=== PATIENT | male | born 1945 | race Caucasian/White ===

== ENCOUNTER 2020-03-10 09:19 | Outpatient (REF) | payer MEDICARE, SELFPAY ==
[2020-03-10 10:55] LABS: Prostate Specific Antigen < 0.05 ng/mL (<0.05-4.0)
== END 2020-03-10 09:20 | disposition home or self-care (01) ==
LOC: HO.LAB 09:19
PROVIDERS: PCP Internal Medicine; Visit Provider Urology
DX: Z12.5 Encounter for screening for malignant neoplasm of prostate (principal)
CPT/HCPCS: 84153

== ENCOUNTER 2020-05-18 13:53 | Outpatient (REF) | payer MEDICARE, SELFPAY ==
[2020-05-18 14:13] LABS: Glucose Urine UA NEG (NEG); Leukocyte Esterase Urine NEG (NEG); Nitrite Urine NEG (NEG); Specific Gravity - Urine >= 1.030 (1.005-1.025); Urine Blood 3+ (NEG); Urine Ketones NEG (NEG); Urine Protein TRACE MG/DL (NEG-TRACE)
[2020-05-18 14:14] LABS: Appearance Urine CLOUDY; Color Urine BROWN
[2020-05-18 14:33] LABS: Amorphous Sediment Urine 2+ /LPF; RBC Urine TNTC /HPF (0); WBC Urine 0 /HPF (0-4)
== END 2020-05-18 13:54 | disposition home or self-care (01) ==
LOC: HO.LAB 13:53
PROVIDERS: PCP Internal Medicine; Visit Provider Urology
DX: R31.29 Other microscopic hematuria (principal); R39.15 Urgency of urination
CPT/HCPCS: 81001; 87086

== ENCOUNTER 2020-05-27 11:28 | Outpatient (REF) | payer MEDICARE, SELFPAY ==
[2020-05-27 14:03] LABS: Urine Cytology See Pathology rpt
== END 2020-05-27 11:29 | disposition home or self-care (01) ==
LOC: HO.LNP 11:28
PROVIDERS: PCP Internal Medicine; Visit Provider Urology
DX: R31.29 Other microscopic hematuria (principal); R39.15 Urgency of urination; N30.40 Irradiation cystitis without hematuria; N28.1 Cyst of kidney, acquired; Z85.46 Personal history of malignant neoplasm of prostate
CPT/HCPCS: 81002; 87086; 88112; Q3014

== ENCOUNTER 2020-05-28 08:00 | Outpatient (REF) | payer MEDICARE, SELFPAY ==
[2020-05-28 08:31] LABS: MANUAL DIFF FLAG NO
[2020-05-28 08:34] LABS: Basophils Percent Auto 0.4 % (0-2); Eosinophils Absolute Auto 0.1 X10*3/uL (0.0-0.4); Eosinophils Percent Auto 2.9 % (0-4); Hematocrit 44.3 % (42-52); Hemoglobin 14.8 g/dl (14.0-18.0); Imm Gran Abs Auto 0.01 X10*3/uL (0.00-0.03); Imm Gran Pct Auto 0.2 % (0.0-0.4); Lymphocytes Absolute Auto 1.4 X10*3/uL (1.2-4.9); Lymphocytes Percent Auto 30.3 % (20-40); Mean Corpuscular HGB Conc 33.4 g/dl (31.0-36.0); Mean Corpuscular Hemoglobin 32.4 pg (27.0-33.0); Mean Corpuscular Volume 96.9 fL (80-98); Mean Platelet Volume 8.3 fL (9.4-12.4); Monocytes Absolute Auto 0.4 X10*3/uL (0.1-1.2); Monocytes Percent Auto 9.6 % (2-11); Neutrophils Absolute Auto 2.6 X10*3/uL (2.0-8.3); Neutrophils Percent Auto 56.6 % (45-73); Platelet Count 184 X10*3/uL (160-400); Red Blood Count 4.57 X10*6/uL (4.60-5.80); Red Cell Distribution Width 12.9 % (11.0-16.0); White Blood Count 4.6 X10*3/uL (4.8-10.8)
[2020-05-28 09:01] LABS: Glucose Urine UA NEG (NEG); Leukocyte Esterase Urine NEG (NEG); Nitrite Urine NEG (NEG); PH 6.5 (5.0-8.0); Urine Blood 3+ (NEG); Urine Ketones NEG (NEG); Urine Protein TRACE MG/DL (NEG-TRACE)
[2020-05-28 09:18] LABS: Alanine Aminotransferase 21 U/L (0-40); Albumin Level 4.2 g/dL (3.5-5.0); Alkaline Phosphatase 54 U/L (39-117); Anion Gap 13 (12-20); Aspartate Amino Transferase 20 U/L (5-37); Bilirubin Total 0.5 mg/dL (0.0-1.0); Blood Urea Nitrogen 20 mg/dL (9-16); Calcium 9.1 mg/dL (8.4-10.2); Carbon Dioxide 29 mmol/L (22-29); Chloride 104 mmol/L (96-108); Cholesterol 199 mg/dL; Estimated Glomerular Filt Rate > 60; Glucose Fasting 103 mg/dL (60-99); HDL Cholesterol 74 mg/dL; LDL Cholesterol Calculated 115 mg/dl; Potassium 4.9 mmol/L (3.3-5.1); Sodium 141 mmol/L (135-145); Total Protein 6.8 g/dL (6.5-8.0); Triglycerides 50 mg/dL
[2020-05-28 09:24] LABS: Estimated Average Glucose 103 mg/dL; Hemoglobin A1c % 5.2 %
[2020-05-28 09:27] LABS: Appearance Urine TURBID
[2020-05-28 09:28] LABS: Color Urine RED
[2020-05-28 09:31] LABS: RBC Urine TNTC /HPF (0); WBC Urine 0 /HPF (0-4)
[2020-05-28 09:41] LABS: TSH reflex Free T4 0.76 uIU/mL (0.32-4.0); Vitamin D 25-OH Total 41.8 ng/mL (>30)
== END 2020-05-28 08:01 | disposition home or self-care (01) ==
LOC: HO.LAB 08:00
PROVIDERS: PCP Internal Medicine; Visit Provider Internal Medicine
DX: I10 Essential (primary) hypertension (principal); E78.00 Pure hypercholesterolemia, unspecified; R73.01 Impaired fasting glucose; R31.9 Hematuria, unspecified; N28.1 Cyst of kidney, acquired; E55.9 Vitamin D deficiency, unspecified; E66.3 Overweight
CPT/HCPCS: 36415; 80053; 80061; 81001; 81003; 82306; 83036; 84443; 85025

== ENCOUNTER → 2020-06-03 13:54 | Outpatient (BNVA) | payer MEDICARE, SELFPAY | PROVIDERS: PCP Internal Medicine; Visit Provider Urology | DX: N30.40 Irradiation cystitis without hematuria (principal); R31.9 Hematuria, unspecified | CPT/HCPCS: 99212 ==

== ENCOUNTER → 2020-06-17 10:56 | Outpatient (BNVA) | payer MEDICARE, SELFPAY | PROVIDERS: Visit Provider Urology | DX: N28.1 Cyst of kidney, acquired (principal); N30.40 Irradiation cystitis without hematuria; Z85.46 Personal history of malignant neoplasm of prostate | CPT/HCPCS: 52000; 81002; 99212 ==

== ENCOUNTER 2020-11-19 09:20 | Outpatient (REF) | payer MEDICARE, SELFPAY ==
[2020-11-19 10:43] LABS: Prostate Specific Antigen < 0.05 ng/mL (<0.05-4.0)
== END 2020-11-19 09:21 | disposition home or self-care (01) ==
LOC: HO.LAB 09:20
PROVIDERS: PCP Internal Medicine; Visit Provider Urology
DX: N40.1 Benign prostatic hyperplasia with lower urinary tract symptoms (principal); N13.8 Other obstructive and reflux uropathy; Z12.5 Encounter for screening for malignant neoplasm of prostate; C61 Malignant neoplasm of prostate
CPT/HCPCS: 36415; 84153

== ENCOUNTER 2020-11-25 08:02 | Outpatient (REF) | payer MEDICARE, SELFPAY ==
[2020-11-25 08:22] LABS: MANUAL DIFF FLAG NO
[2020-11-25 08:25] LABS: Basophils Percent Auto 0.4 % (0-2); Eosinophils Absolute Auto 0.1 X10*3/uL (0.0-0.4); Eosinophils Percent Auto 2.6 % (0-4); Hematocrit 43.4 % (42-52); Hemoglobin 14.5 g/dl (14.0-18.0); Imm Gran Abs Auto 0.01 X10*3/uL (0.00-0.03); Imm Gran Pct Auto 0.2 % (0.0-0.4); Lymphocytes Absolute Auto 1.5 X10*3/uL (1.2-4.9); Lymphocytes Percent Auto 32.6 % (20-40); Mean Corpuscular HGB Conc 33.4 g/dl (31.0-36.0); Mean Corpuscular Hemoglobin 32.4 pg (27.0-33.0); Mean Corpuscular Volume 97.1 fL (80-98); Mean Platelet Volume 8.4 fL (9.4-12.4); Monocytes Absolute Auto 0.6 X10*3/uL (0.1-1.2); Monocytes Percent Auto 13.9 % (2-11); Neutrophils Absolute Auto 2.3 X10*3/uL (2.0-8.3); Neutrophils Percent Auto 50.3 % (45-73); Platelet Count 170 X10*3/uL (160-400); Red Blood Count 4.47 X10*6/uL (4.60-5.80); Red Cell Distribution Width 13.1 % (11.0-16.0); White Blood Count 4.6 X10*3/uL (4.8-10.8)
[2020-11-25 08:34] LABS: Estimated Average Glucose 105 mg/dL; Hemoglobin A1c % 5.3 %
[2020-11-25 09:11] LABS: Alanine Aminotransferase 20 U/L (0-40); Albumin Level 4.3 g/dL (3.5-5.0); Alkaline Phosphatase 61 U/L (39-117); Anion Gap 10 (12-20); Aspartate Amino Transferase 20 U/L (5-37); Bilirubin Total 0.6 mg/dL (0.0-1.0); Blood Urea Nitrogen 17 mg/dL (9-16); Calcium 9.7 mg/dL (8.4-10.2); Carbon Dioxide 30 mmol/L (22-29); Chloride 108 mmol/L (96-108); Cholesterol 198 mg/dL; Estimated Glomerular Filt Rate > 60; Glucose Fasting 107 mg/dL (60-99); HDL Cholesterol 71 mg/dL; LDL Cholesterol Calculated 118 mg/dl; Potassium 5.5 mmol/L (3.3-5.1); Sodium 142 mmol/L (135-145); Triglycerides 46 mg/dL
[2020-11-25 09:35] LABS: TSH reflex Free T4 0.88 uIU/mL (0.32-4.0); Vitamin D 25-OH Total 38.4 ng/mL (>30)
[2020-11-25 09:50] LABS: Glucose Urine UA NEG (NEG); Leukocyte Esterase Urine NEG (NEG); Nitrite Urine NEG (NEG); Specific Gravity - Urine 1.025 (1.005-1.025); UACC Culture Trigger NO; Urine Blood 3+ (NEG); Urine Ketones NEG (NEG); Urine Protein NEG (NEG-TRACE)
[2020-11-25 10:13] LABS: Appearance Urine CLOUDY; Color Urine YELLOW
[2020-11-25 10:57] LABS: Mucus Urine 1+ /LPF; WBC Urine 0 /HPF (0-4)
== END 2020-11-25 08:03 | disposition home or self-care (01) ==
LOC: HO.LAB 08:02
PROVIDERS: PCP Internal Medicine; Visit Provider Internal Medicine
DX: N30.40 Irradiation cystitis without hematuria (principal); C61 Malignant neoplasm of prostate; N28.1 Cyst of kidney, acquired; I10 Essential (primary) hypertension; E78.00 Pure hypercholesterolemia, unspecified; R73.01 Impaired fasting glucose; E66.3 Overweight; E55.9 Vitamin D deficiency, unspecified
CPT/HCPCS: 36415; 80053; 80061; 81001; 81003; 82306; 83036; 84443; 85025; 99212

== ENCOUNTER 2021-05-19 10:13 | Outpatient (REF) | payer MEDICARE, SELFPAY ==
[2021-05-19 12:08] LABS: Prostate Specific Antigen < 0.05 ng/mL (<0.05-4.0)
== END 2021-05-19 10:14 | disposition home or self-care (01) ==
LOC: HO.LAB 10:13
PROVIDERS: PCP Internal Medicine; Visit Provider Urology
DX: Z12.5 Encounter for screening for malignant neoplasm of prostate (principal); C61 Malignant neoplasm of prostate
CPT/HCPCS: 36415; 84153

== ENCOUNTER 2021-05-26 09:04 | Outpatient (REF) | payer MEDICARE, SELFPAY ==
[2021-05-26 10:51] LABS: Appearance Urine HAZY; Color Urine YELLOW; Glucose Urine UA NEG (NEG); Leukocyte Esterase Urine NEG (NEG); Nitrite Urine NEG (NEG); PH 6.5 (5.0-8.0); UACC Culture Trigger NO; Urine Blood 3+ (NEG); Urine Ketones NEG (NEG); Urine Protein NEG (NEG-TRACE)
[2021-05-26 12:03] LABS: RBC Urine TNTC /HPF (0); WBC Urine 0 /HPF (0-4)
== END 2021-05-26 09:05 | disposition home or self-care (01) ==
LOC: HO.LAB 09:04
PROVIDERS: PCP Internal Medicine; Visit Provider Internal Medicine
DX: N40.1 Benign prostatic hyperplasia with lower urinary tract symptoms (principal); N13.8 Other obstructive and reflux uropathy; I10 Essential (primary) hypertension; N28.1 Cyst of kidney, acquired; R31.9 Hematuria, unspecified; Z85.46 Personal history of malignant neoplasm of prostate
CPT/HCPCS: 81001

== ENCOUNTER 2021-06-01 08:01 | Day surgery (SDC) | payer MEDICARE, SELFPAY ==
[2021-04-26 13:47] VITALS: BMI 27.7
--- NOTE | 2021-05-31 11:05 | HO.ANESPROP2 ---
Documented by User: Aster Carter NP 05/31/21 11:06 HPI - Anesthesia Eval Consult details Narrative: 76yo M for Colonoscopy K elevated 11/2020, repeat lytes DOS PMFSH Active Problems Active Problems: All Active Problems (Updated 05/31/21 @ 09:21 by Cade Enriquez MD) Radiation cystitis (Acute) Microscopic hematuria (Acute) Urinary urgency (Acute) Prostate cancer (Acute) Complex renal cyst (Acute) Adult general medical exam (Acute) Screening for colon cancer (Acute) Overweight (BMI 25.0-29.9) (Acute) History of prostate cancer (Acute) Renal cyst (Acute) Hematuria (Acute) Vitamin D deficiency (Acute) Osteoarthritis of left knee (Acute) Impaired fasting glucose (Acute) Pure hypercholesterolemia (Acute) Benign essential hypertension (Acute) Past Medical History Medical History (Updated 05/31/21 @ 09:21 by Cade Enriquez MD) Benign essential hypertension Diverticulosis History of prostate cancer Hypertension Impaired fasting glucose Osteoarthritis of left knee Overweight (BMI 25.0-29.9) Pure hypercholesterolemia Radiation cystitis Renal cyst Vitamin D deficiency Family History Family History Father Cancer Mother Colon cancer Surgical History Surgical History History of ankle surgery History of colonoscopy History of meniscectomy of left knee (~06/05/12) Hx of prostatectomy Hx of umbilical hernia repair Social History Social History Housing: House Alcohol intake: current Alcohol intake frequency: 0-2 drinks per day Alcohol type: beer Patient Tobacco Use Status: Never used Tobacco Second Hand Smoke Exposure: No Are you DNR?: No Advance Directives: No Advance Directives Information Provided: Yes Current occupational status: retired Meds Allergies Allergy/AdvReac Type Severity Reaction Status Date / Time No Known Allergies Allergy Verified 05/31/21 12:10 Home Medications Medication Instructions Recorded Confirmed Last Taken Type cholecalciferol (vitamin D3) 10 10 mcg PO DAILY 06/01/20 05/31/21 Unknown History mcg (400 unit) tablet multivitamin 1 tab PO DAILY 06/01/20 05/31/21 Unknown History Exam Exam Date and Time: May 31, 2021 1105 Height,Weight and Vital Signs: Height 5 ft 9 in Weight 85.275 kg Assessment and Plan Assessment Anesthesia Assessment: Chart Reviewed Documented by User: Jaqueline Otto MD 06/01/21 09:02 [facility] Past Medical History Medical History (Updated 05/31/21 @ 09:21 by Cade Enriquez MD) Benign essential hypertension Diverticulosis History of prostate cancer Hypertension Impaired fasting glucose Osteoarthritis of left knee Overweight (BMI 25.0-29.9) Pure hypercholesterolemia Radiation cystitis Renal cyst Vitamin D deficiency Family History Family History Father Cancer Mother Colon cancer Family history of problems with anesthesia: No Surgical History Surgical History History of ankle surgery History of colonoscopy History of meniscectomy of left knee (~06/05/12) Hx of prostatectomy Hx of umbilical hernia repair History of Problems with Anesthesia: No Social History Social History Housing: House Alcohol intake: current Alcohol intake frequency: 0-2 drinks per day Alcohol type: beer Patient Tobacco Use Status: Never used Tobacco Second Hand Smoke Exposure: No Are you DNR?: No Advance Directives: No Advance Directives Information Provided: Yes Current occupational status: retired Meds Allergies Allergy/AdvReac Type Severity Reaction Status Date / Time No Known Allergies Allergy Verified 05/31/21 12:10 Home Medications Medication Instructions Recorded Confirmed Last Taken Type cholecalciferol (vitamin D3) 10 10 mcg PO DAILY 06/01/20 05/31/21 Unknown History mcg (400 unit) tablet multivitamin 1 tab PO DAILY 06/01/20 05/31/21 Unknown History Exam Height,Weight and Vital Signs: Height 5 ft 9 in Weight 85.275 kg Vital Signs Temp Pulse Resp BP Pulse Ox 02/15/22 08:16 97 F 60 18 150/71 H 96 Pertinent Lab Results Pertinent Lab Results: Lab Results 06/01/21 Range/Units 08:19 Sodium 141 (135-145) mmol/L Potassium 4.2 D (3.3-5.1) mmol/L Chloride 102 (96-108) mmol/L Carbon Dioxide 30 H (22-29) mmol/L Anion Gap 13 (12-20) Airway Mallampati Class: II TM Dist: >3cm Neck ROM: Full Loose/Missing/Broken Teeth: Yes (Some broken ) Heart: RRR Lungs: CTAB Assessment and Plan Assessment Anesthesia Assessment: Anesthesia Plan Discussed Final Anesthetic Review Family History of Problems with Anesthesia: No History of Problems with Anesthesia: No NPO: Yes ASA Class: II Final Preanesthetic Review: No Changes in Pt Med Stat, Meds/Allgs Chart Reviewed, Consent Obtained/Reviewed and Anes Risks/Benef Reviewed Patient Risk: Low Procedure Risk: Low Assessment/Block/Sedation in SS: Assess/Block/Sedation- Anesthetic Plan Anesthetic Plan: MAC: Disposition: Standard PACU
[2021-06-01 08:16] VITALS: BP 150/71; PULSE 60; RESP 18; TEMP 36.1; O2SAT 96
[2021-06-01] MEDS: Lactated Ringers 1,000 ML 100 ML IVCONT (08:31)
[2021-06-01 08:37] LABS: Anion Gap 13 (12-20); Carbon Dioxide 30 mmol/L (22-29); Chloride 102 mmol/L (96-108); Potassium 4.2 mmol/L (3.3-5.1); Sodium 141 mmol/L (135-145)
--- NOTE | 2021-06-01 08:58 | MHC.SHP ---
Pre-Procedural Eval Section A Date of Service: 06/01/21 Section B Chief Complaint: screening Details of Present Illness: screening Relevant Family History (Specify if Yes): Yes Relevant Social History: None Present Medications: see Short Stay Collaborative assessment Medical History: No relevant PMH History of Previous Operations: No relevant previous surgery Allergies: Allergies Allergy/AdvReac Type Severity Reaction Status Date / Time No Known Allergies Allergy Verified 05/31/21 12:10 Review of Systems Sugical H&P ROS: Negative: Constitution, Cardiovascular, Respiratory, Neurological, Psychiatric, Hem-Onc, Allergic/Immunologic, Gastrointestinal, Genitourinary, Musculoskeletal, Integumentary, Endocrine and Eyes/Ears/Nose/Throat Exam Surgical H&P Exam: Normal: HEENT, Normal: Heart, Normal: Lungs, Normal: Extremities, Normal: Abdomen, Normal: Skin and Normal: Neurological Plan Diagnosis/Plan: Unchanged I have reviewed the history and physical and performed a pertinent physical examination on my patient. No changes have occurred unless specified.
[2021-06-01 09:37] VITALS: BP 102/48; PULSE 73; RESP 16; TEMP 36.2; O2SAT 95
--- NOTE | 2021-06-01 09:37 | P.BOP_ITS ---
Brief Operative Note Date of Service: 06/01/21 Pre-op diagnosis: screening Post-op diagnosis: same (colon polyps) Surgeon: Sumeet Swift Anesthesia: MAC Was an Patternmaker Metal Bench used for this Procedure?: No Estimated blood loss (mL): 5 Pathology: other (polyps cecum and 70 cm) Condition: stable Disposition: PACU
[2021-06-01 09:54] VITALS: BP 107/62; PULSE 71; RESP 18; TEMP 36.2; O2SAT 97
--- NOTE | 2021-06-01 11:12 | OP_ITS ---
SURGEON: Sumeet Swift MD INDICATIONS: Colon cancer screening. PREOPERATIVE DIAGNOSIS: POSTOPERATIVE DIAGNOSIS: PROCEDURE PERFORMED: Colonoscopy to the terminal ileum with biopsy. ESTIMATED BLOOD LOSS: COMPLICATIONS: ANESTHESIA: ASSISTANTS: SPECIMENS: MEDICATIONS: Monitored anesthesia care. DESCRIPTION OF PROCEDURE: History and physical performed. The risks and benefits of the procedure were explained to the patient. Informed consent was obtained. The patient was placed in the left lateral decubitus position. A digital rectal exam was performed and was found to be normal. The Olympus pediatric video colonoscope was introduced into the rectum and advanced to the cecum without difficulty. The cecum was identified by transillumination, palpation, and identification of ileocecal valve. Examination was performed and the scope was removed. He tolerated the procedure well and was taken to recovery in stable condition. FINDINGS: The terminal ileum was examined and appeared normal. The visualized colonic mucosa was normal. There was some liquid stool coating the mucosa with some formed stool limiting the examination in the sigmoid and right colon. This was washed and suctioned as best possible. Three polyps were identified. All were less than 5 mm and were removed with biopsy forceps. Two were located at 70 cm, 1 was located in the cecum. There was moderate sigmoid diverticulosis with scattered diverticula throughout the remainder of the colon. There were changes of radiation proctitis with telangiectasias involving the rectum. Retroflexed examination showed internal hemorrhoids that were moderate in size. IMPRESSION: Colon polyps. RECOMMENDATION: Follow up the biopsy results. MD BRANDEE Villatoro/YESI / [id number]
== END 2021-06-01 10:15 | disposition home or self-care (01) ==
PROVIDERS: Nurse Practitioner; PCP Internal Medicine; Visit Provider Internal Medicine Gastroenterology
PROC: 0DJD8ZZ Inspection of Lower Intestinal Tract, Via Natural or Artificial Opening Endoscopic (ICD-10-PCS; CPT 45378; principal; 2021-06-01 09:10)
DX: Z12.11 Encounter for screening for malignant neoplasm of colon (principal); Z86.010 Personal history of colon polyps; D12.0 Benign neoplasm of cecum; K63.5 Polyp of colon; K57.30 Diverticulosis of large intestine without perforation or abscess without bleeding; K64.8 Other hemorrhoids; Z85.46 Personal history of malignant neoplasm of prostate; K62.7 Radiation proctitis; Y84.2 Radiological procedure and radiotherapy as the cause of abnormal reaction of the patient, or of later complication, without mention of misadventure at the time of the procedure; I10 Essential (primary) hypertension; Z79.899 Other long term (current) drug therapy
CPT/HCPCS: 45380; 36415; 80051; 88305

== ENCOUNTER → 2021-06-09 15:39 | Outpatient (BNVA) | payer MEDICARE, SELFPAY | PROVIDERS: PCP Internal Medicine; Visit Provider Urology | DX: N30.40 Irradiation cystitis without hematuria (principal); C61 Malignant neoplasm of prostate; N28.1 Cyst of kidney, acquired; R97.20 Elevated prostate specific antigen [PSA]; I10 Essential (primary) hypertension; E55.9 Vitamin D deficiency, unspecified; Z90.79 Acquired absence of other genital organ(s) | CPT/HCPCS: 99212 ==

== ENCOUNTER 2021-08-03 07:56 | Outpatient (RCR) | payer MEDICARE, SELFPAY ==
--- NOTE | ~2021-08-03 | XR_ITS ---
EXAMINATION: XR CHEST CLINICAL INFORMATION: Prehyperbaric oxygen treatment COMPARISON: None TECHNIQUE: 2 views of the chest were obtained. FINDINGS: The cardiac and mediastinal contours are normal. The lungs are clear. There is no pleural effusion or pneumothorax. There are degenerative changes of the spine. XR/XR chest 2V IMPRESSION: No evidence for acute disease in the chest.
[2021-08-03 09:27] LABS: MANUAL DIFF FLAG NO
[2021-08-03 10:25] LABS: Basophils Percent Auto 0.4 % (0-2); Eosinophils Absolute Auto 0.1 X10*3/uL (0.0-0.4); Eosinophils Percent Auto 2.7 % (0-4); Hemoglobin 13.2 g/dl (14.0-18.0); Imm Gran Abs Auto 0.01 X10*3/uL (0.00-0.03); Imm Gran Pct Auto 0.2 % (0.0-0.4); Lymphocytes Absolute Auto 1.2 X10*3/uL (1.2-4.9); Mean Corpuscular HGB Conc 32.2 g/dl (31.0-36.0); Mean Corpuscular Hemoglobin 30.8 pg (27.0-33.0); Mean Corpuscular Volume 95.6 fL (80.0-98.0); Mean Platelet Volume 8.7 fL (9.4-12.4); Monocytes Absolute Auto 0.6 X10*3/uL (0.1-1.2); Monocytes Percent Auto 10.6 % (2-11); Neutrophils Absolute Auto 3.3 x10*3/uL (2.0-8.3); Neutrophils Percent Auto 63.1 % (45-73); Platelet Count 229 X10*3/uL (160-400); Red Blood Count 4.29 X10*6/uL (4.60-5.80); Red Cell Distribution Width 12.4 % (11.0-16.0); White Blood Count 5.2 X10*3/uL (4.8-10.8)
[2021-08-03 10:31] LABS: Estimated Average Glucose 105 mg/dL; Hemoglobin A1c % 5.3 %
[2021-08-03 11:03] LABS: Anion Gap 12 (12-20); Blood Urea Nitrogen 25 mg/dL (9-16); C Reactive Protein 0.22 mg/dL (< or = 0.50); Calcium 9.7 mg/dL (8.4-10.2); Carbon Dioxide 28 mmol/L (22-29); Chloride 109 mmol/L (96-108); Estimated Glomerular Filt Rate > 60; Glucose Random 90 mg/dL (60-115); Potassium 5.8 mmol/L (3.3-5.1); Sodium 143 mmol/L (135-145)
[2021-08-03 11:17] LABS: Erythrocyte Sedimentation Rate 12 MM/HR (0-15)
== END 2021-10-28 13:00 | disposition home or self-care (01) ==
LOC: HO.WCC 07:56
PROVIDERS: PCP Internal Medicine; Visit Provider Physician Assistant
DX: N30.41 Irradiation cystitis with hematuria (principal); R30.0 Dysuria; I10 Essential (primary) hypertension; R32 Unspecified urinary incontinence; Z85.46 Personal history of malignant neoplasm of prostate; Z79.899 Other long term (current) drug therapy
CPT/HCPCS: 36415; 71046; 80048; 83036; 84134; 85025; 85652; 86140; 99183; 99212; 99213

== ENCOUNTER → 2021-08-06 09:54 | Outpatient (BNVA) | payer MEDICARE, SELFPAY | PROVIDERS: PCP Internal Medicine; Visit Provider Urology | DX: N30.40 Irradiation cystitis without hematuria (principal); C61 Malignant neoplasm of prostate | CPT/HCPCS: 52000; 99212 ==

== ENCOUNTER 2021-09-22 20:48 | Emergency (ER) | payer MEDICARE, SELFPAY ==
[2021-09-22 20:57] VITALS: BP 189/83; PULSE 120; RESP 18; TEMP 37; O2SAT 98; BMI 27.3
--- NOTE | 2021-09-22 23:50 | PC.NURSE ---
Assumed care of pt [address] placed with maintenance technician at bedside Pt tolerated well Output: approx 600 cc dark red urine. No clotts visible
--- NOTE | 2021-09-22 23:53 | ED_ITS ---
HPI - Male Genitourinary General Chief complaint: Urogenital-Male Stated complaint: unable to void Time Seen by Provider: 09/22/21 23:06 Source: patient and family Mode of arrival: ambulatory History of Present Illness HPI Narrative: 76-year-old male presents with history of radiation cystitis and is currently under the care of Dr. Trevino and has been receiving tranexamic acid for hematuria/clot and has been undergoing treatment with hyperbaric chamber through the wound clinic. Patient states that he experience the inability to pass urine since approximately 1930, by the he has had significant urinary frequency he states he is been unable to pass any urine. And is now experiencing significant pain the lower abdomen. Related Data Home Medications Medication Instructions Recorded Confirmed cholecalciferol (vitamin D3) 10 10 mcg PO DAILY 06/01/20 05/31/21 mcg (400 unit) tablet multivitamin 1 tab PO DAILY 06/01/20 05/31/21 Previous Rx's Medication Instructions Recorded vitamin E (dl, acetate) 450 mg 450 mg PO DAILY #90 caps 06/17/20 (1,000 unit) capsule pentoxifylline 400 mg 400 mg PO BID 90 days #180 tabs 12/11/20 tablet,extended release amlodipine 5 mg-benazepril 40 mg 1 cap PO DAILY 90 days #90 caps 05/31/21 capsule tranexamic acid 650 mg tablet 650 mg PO ONCE 28 days #28 tabs 08/06/21 amoxicillin 875 mg-potassium 1 tab PO Q12H 7 days #14 tabs 09/23/21 clavulanate 125 mg tablet Allergies Allergy/AdvReac Type Severity Reaction Status Date / Time No Known Allergies Allergy Verified 08/06/21 10:04 Review of Systems Review of Systems: Pertinent positives and negatives as stated in HPI 10 point review of systems is otherwise negative. [facility] Past Medical History Source: nursing notes reviewed Medical History Benign essential hypertension Diverticulosis History of prostate cancer Hypertension Impaired fasting glucose Osteoarthritis of left knee Overweight (BMI 25.0-29.9) Pure hypercholesterolemia Radiation cystitis Renal cyst Vitamin D deficiency Surgical History History of ankle surgery History of colonoscopy History of meniscectomy of left knee (~06/05/12) Hx of prostatectomy Hx of umbilical hernia repair Family History Family History Father Cancer Mother Colon cancer Social History Social History Housing: House Alcohol intake: current Alcohol intake frequency: 0-2 drinks per day Alcohol type: beer Patient Tobacco Use Status: Never used Tobacco Second Hand Smoke Exposure: No Advance Directives: No Current occupational status: retired Physical Exam Vital Signs: Vital Signs: Last Vital Signs Temp 98.6 F 09/22/21 20:57 Pulse 120 H 09/22/21 20:57 Resp 18 09/22/21 20:57 BP 189/83 H 09/22/21 20:57 Pulse Ox 98 09/22/21 20:57 O2 Del Method 09/22/21 20:57 BMI result Body Mass Index 27.3 VITAL SIGNS: Reviewed. GENERAL: Well developed, well nourished, in moderate distress. HEAD: Normocephalic/atraumatic EYES: PERRLA, EOMI EARS: Ext canals without abnormality OROPHARYNX: no oral lesions noted, posterior pharynx clear LUNGS: Normal breath sounds. No adventitious sounds or accessory muscle use. SpO2<98> CARDIOVASCULAR: Regular rate and rhythm without noted murmurs ABDOMEN: Soft, tenderness in the suprapubic area and noted firmness there, non- distended with bowel sounds. SKIN: Inspection of the skin reveals no rashes NEUROLOGIC: Alert and oriented x 4. Strength and sensation to light touch were grossly intact x 4. Course Course Course Narrative: 76-year-old male with history and clinical presentation consistent with likely urinary retention secondary to blockage of urethra with clot. Bladder scan demonstrates more than 600 cc of urine in the bladder, will place a Morales catheter with Urojet and administer CBI as indicated. Morales catheter was placed with good resolution of pain and urine collar typical for patient's current course which is gross hematuria without clots noted. On review of urinalysis there is evidence of not only gross hematuria but also UTI. He received initial antibiotics here in the emergency room and then was discharged with remaining course. He was also given all results and instructed to follow-up with Dr. Trevino. MDM - Male Genitourinary Lab Data Labs: Lab Results 09/23/21 Range/Units 00:10 Urine Color BROWN A Urine Appearance TURBID Urine pH 7.0 (5.0-8.0) Ur Specific [place] 1.015 (1.005-1.025) Urine Protein 3+ H (NEG-TRACE) MG/DL Urine Glucose (UA) 100 H (NEG) MG/DL Urine Ketones 15 (NEG) MG/DL Urine Blood 3+ H (NEG) Urine Nitrite POS H (NEG) Ur Leukocyte Esterase 2+ H (NEG) Urine RBC TNTC H (0) /HPF Urine WBC 10-14 H (0-4) /HPF Ur Squamous Epith Cells TRACE /LPF Amorphous Sediment 1+ /LPF Urine Bacteria 2+ /LPF Discharge Plan Discharge Clinical Impression: Acute urinary retention, Acute UTI, Difficult Morales catheter placement, Hematuria Patient Disposition: Home, Self-Care Instructions: Urinary Retention in Men (ED), Urinary Tract Infection in Men (ED), Morales Catheter Placement and Care (ED), Hematuria (ED) Additional Instructions: 1. Resume all home medications as prescribed. 2. Continue drinking plenty of water. Complete the entire course of antibiotics as prescribed. 3. Follow-up with Dr. Trevion this morning for re-evaluation. Return to the ER for worsening symptoms. Prescriptions: New amoxicillin-pot clavulanate 875-125 mg tablet 1 tab PO Q12H 7 Days Qty: 14 0RF No Action pentoxifylline 400 mg tablet extended release 400 mg PO BID 90 Days Qty: 180 1RF Rx Instructions: administer with meals tranexamic acid 650 mg tablet 650 mg PO ONCE 28 Days Qty: 28 1RF cholecalciferol (vitamin D3) 10 mcg (400 unit) tablet 10 mcg PO DAILY multivitamin Tablet 1 tab PO DAILY amlodipine-benazepril 5-40 mg capsule 1 cap PO DAILY 90 Days Qty: 90 3RF vitamin E (dl, acetate) 450 mg (1,000 unit) capsule 450 mg PO DAILY Qty: 90 1RF Referrals: Cade Enriquez MD [Primary Care Provider] - Ruperto Trevino MD [Physician] - (Patient presented with urinary tension, catheter was placed and connected to a leg bag, noted to have a UTI and was started on a course of Augmentin.)
[2021-09-23 00:27] LABS: Appearance Urine TURBID; Color Urine BROWN; Glucose Urine UA 100 MG/DL (NEG); Leukocyte Esterase Urine 2+ (NEG); Nitrite Urine POS (NEG); Specific Gravity - Urine 1.015 (1.005-1.025); UACC Culture Trigger YES; Urine Blood 3+ (NEG); Urine Ketones 15 MG/DL (NEG); Urine Protein 3+ MG/DL (NEG-TRACE)
[2021-09-23 00:40] LABS: Amorphous Sediment Urine 1+ /LPF; Bacteria Urine 2+ /LPF; RBC Urine TNTC /HPF (0); Squamous Epithelial Cell Urine TRACE /LPF
[2021-09-23 00:58] VITALS: BP 133/64; PULSE 86; O2SAT 98
[2021-09-23] MEDS: Amoxicillin/Potassium Clav 875 MG TABLET PO (01:14)
[2021-09-23] MEDS: Lidocaine HCl 2 % Urojet 10 ML JEL.PF.APP TOPICAL (01:15)
--- NOTE | 2021-09-23 01:20 | PC.NURSE ---
Pt's medina bag replaced with leg bag Pt medicated per JUN Will continue to monitor
== END 2021-09-23 01:28 | disposition home or self-care (01) ==
PROVIDERS: Emergency Provider Student in an Organized Health Care Education/Training Program; PCP Internal Medicine
DX: R33.9 Retention of urine, unspecified (principal); N39.0 Urinary tract infection, site not specified; R31.0 Gross hematuria; R10.30 Lower abdominal pain, unspecified; I10 Essential (primary) hypertension; E78.00 Pure hypercholesterolemia, unspecified
CPT/HCPCS: 51702; 51798; 81001; 87086; 99283; 99284

== ENCOUNTER → 2021-09-23 10:25 | Outpatient (BNVA) | payer MEDICARE, SELFPAY | PROVIDERS: PCP Internal Medicine; Visit Provider Urology | DX: R31.9 Hematuria, unspecified (principal) | CPT/HCPCS: 51700 ==

== ENCOUNTER → 2021-10-07 09:27 | Outpatient (BNVA) | payer MEDICARE, SELFPAY | PROVIDERS: PCP Internal Medicine; Visit Provider Urology | DX: R31.9 Hematuria, unspecified (principal) | CPT/HCPCS: 51700; 51798 ==

== ENCOUNTER → 2021-11-12 10:57 | Outpatient (BNVA) | payer MEDICARE, SELFPAY | PROVIDERS: PCP Internal Medicine; Visit Provider Urology | DX: N30.91 Cystitis, unspecified with hematuria (principal); N30.40 Irradiation cystitis without hematuria; C61 Malignant neoplasm of prostate | CPT/HCPCS: 52000; 99212 ==

== ENCOUNTER 2021-11-24 10:58 | Outpatient (REF) | payer MEDICARE, SELFPAY | END 2021-11-24 10:59 | disposition home or self-care (01) | LOC: HO.LNP 10:58 | PROVIDERS: Visit Provider Urology | DX: Z13.89 Encounter for screening for other disorder (principal) ==

== ENCOUNTER 2021-12-08 13:47 | Inpatient (IN) | payer MEDICARE, SELFPAY ==
--- NOTE | ~2021-12-08 | CT_ITS ---
EXAMINATION: CT ANGIOGRAM OF THE CHEST WITH AND WITHOUT CONTRAST (CT PULMONARY ANGIOGRAM FOR PE) CLINICAL INFORMATION: Venous thrombosis; question pulmonary embolus. COMPARISON: Venous ultrasound dated 12/08/2021. TECHNIQUE: Prior to contrast administration, noncontrast localization images were obtained. Subsequently, multidetector volumetric imaging was performed from the thoracic inlet to below the diaphragms following the administration of 75 mL Omnipaque 350 intravenous contrast. No contrast reaction reported Sagittal, coronal, and MIP oblique sagittal reformatted images were obtained on the CT workstation, uploaded to PACS, and reviewed. This CT examination was performed using dose optimization techniques as appropriate, variously including the following: *Automated exposure control *Adjustment of mA and/or kV according to patient size (this includes techniques or standardized protocols for targeted exams where dose is matched to indication/reason for exam; i.e. extremities or head) *Use of iterative reconstruction technique Total exam dose-length product 286 mGy-cm FINDINGS: QUALITY OF STUDY/CONTRAST BOLUS: Satisfactory. PULMONARY ARTERIES: No central or segmental pulmonary emboli. THORACIC AORTA: No aneurysm or dissection. There is mild atherosclerotic calcifications. LUNG: At the lateral left base (7:308), a 6 mm noncalcified nodule is seen. There are a few benign, calcified granulomas. No mass, infiltrate or groundglass opacity is seen. There is no generalized increase in peripheral interlobular septal markings. No small airway thickening is seen. The central airways appear patent. PLEURA: No pleural effusion or pneumothorax. MEDIASTINUM: The thyroid is unremarkable. There are atherosclerotic calcifications of the great vessel origins and coronary arteries. No mediastinal or hilar lymphadenopathy is seen. CHEST WALL/AXILLA: No axillary or internal mammary lymphadenopathy. OSSEOUS STRUCTURES: There is multi-level marked thoracic spondylosis, with an appearance suggesting possible DISH (diffuse idiopathic skeletal hyperostosis). No acute or aggressive osseous abnormality is seen. UPPER ABDOMEN: There are incompletely characterized extensive bilateral renal cysts. The included adrenal glands are unremarkable. No reflux of contrast into the hepatic veins to suggest elevated right heart pressures. CT/CT angio chest PE protocol IMPRESSION: 1. No pulmonary embolus or thoracic aortic aneurysm or dissection is seen. 2. A 6 mm noncalcified lateral left base nodule is seen. There are further rare small benign, calcified granulomas. According to the UPDATED 2017 Fleischner Society recommendations, the advised follow-up imaging for multiple solid nodules, the largest measuring 6 mm or greater, is: LOW RISK PATIENT: CT at 3-6 months, then consider CT at 18-24 months. HIGH RISK PATIENT: CT at 3-6 months, then at 18-24 months. 3. No thoracic lymphadenopathy or pleural effusion is seen. 4. Skeletal findings suggest possible DISH. No aggressive osseous lesion is seen. VTE: negative
--- NOTE | ~2021-12-08 | US_ITS ---
EXAMINATION: US VENOUS ULTRASOUND WITH DOPPLER LOWER EXTREMITY, LEFT CLINICAL INFORMATION: Left lower extremity pain and swelling. COMPARISON: None TECHNIQUE: Ultrasound of the deep veins is performed from the hip to the calf with compression sonography and color and pulse Doppler assessment. Spectral analysis with color-flow imaging is performed. FINDINGS: Examination demonstrates relatively echogenic intraluminal material with and lack of compression extending at least from the common femoral vein to the distal aspect of the femoral vein. Minimal peripheral flow is seen within the distal aspect of the femoral vein. No flow is demonstrated within the remainder of the femoral vein or common femoral vein. Flow is seen within the greater saphenous vein, popliteal vein, and visualized infrapopliteal veins. The iliac veins could not be evaluated adequately. US/US venous duplex LE IMPRESSION: Findings, as above, consistent with left lower extremity deep venous thrombosis, age indeterminate. PARAMJIT Zabala was directly informed of the findings by telephone at approximately 4:20 PM on December 08, 2021.
[2021-12-08 13:55] VITALS: BP 114/74; PULSE 106; RESP 17; TEMP 36.6; O2SAT 98; BMI 26.7
--- NOTE | 2021-12-08 18:36 | ED_ITS ---
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 Patient denies any chest pain, shortness of breath, cough, fevers, chills. Patient denies any known history of DVT or PE. He is not taking any blood thinning medication. Patient did have history of hemorrhagic cystitis earlier this year. He tells me that his urine is currently yellow and he is not having any current hematuria. Related Data Home Medications Medication Instructions Recorded Confirmed cholecalciferol (vitamin D3) 10 10 mcg PO DAILY 06/01/20 12/08/21 mcg (400 unit) tablet multivitamin 1 tab PO DAILY 06/01/20 12/08/21 ascorbic acid (vitamin C) 500 mg 500 mg PO DAILY 12/08/21 12/08/21 tablet (Vitamin C) Previous Rx's Medication Instructions Recorded vitamin E (dl, acetate) 450 mg 450 mg PO DAILY #90 caps 06/17/20 (1,000 unit) capsule amlodipine 5 mg-benazepril 40 mg 1 cap PO DAILY 90 days #90 caps 05/31/21 capsule tranexamic acid 650 mg tablet 650 mg PO DAILY 28 days #28 tabs 10/07/21 Allergies Allergy/AdvReac Type Severity Reaction Status Date / Time No Known Allergies Allergy Verified 11/11/21 15:30 Review of Systems Review of Systems: Yes all other systems are reviewed and are negative Constitutional: Constitutional: Reports no additional constitutional complaints, Denies body ache(s), Denies chills, Denies fever(s), Denies headache(s) and Denies weakness Eyes: Eyes: Reports no additional eye complaints and Denies change in vision ENT: Reports system reviewed and no additional complaints, except as documented, Denies dizziness, Denies headache(s), Denies nasal congestion, Denies nasal discharge and Denies neck pain Cardiovascular: Cardiovascular: Reports no additional cardiovascular complaints, Denies chest pain, Denies leg edema and Denies dyspnea Respiratory: Respiratory: Reports no additional respiratory complaints, Denies cough and Denies dyspnea Gastrointestinal: Gastrointestinal: Reports no additional gastrointestinal complaints, Denies abdominal pain, Denies diarrhea, Denies nausea and Denies vomiting Genitourinary: Genitourinary: Denies urinary incontinence Musculoskeletal: Musculoskeletal: Reports no additional musculoskeletal compla ints, Denies back pain, Denies arthralgias, Denies joint swelling, Denies neck pain, Denies numbness and Denies tingling Integumentary/Breasts: Skin/Breast: Reports system reviewed and no additional complaints, except as docu, Reports swelling, Reports erythema and Denies rash Neurologic: Reports system reviewed and no additional complaints, except as documented, Denies Abnormal speech present, Denies dizziness, Denies headache(s), Denies numbness, Denies tingling and Denies weakness PMFSH Past Medical History Attestation statement: The following information was validated with the patient. Source: old records reviewed and nursing notes reviewed Medical History Benign essential hypertension Diverticulosis History of prostate cancer Hypertension Impaired fasting glucose Osteoarthritis of left knee Overweight (BMI 25.0-29.9) Pure hypercholesterolemia Radiation cystitis Renal cyst Vitamin D deficiency Surgical History History of ankle surgery History of colonoscopy History of meniscectomy of left knee (~06/05/12) Hx of prostatectomy Hx of umbilical hernia repair Family History Family History Father Cancer Mother Colon cancer Social History Social History Housing: House Alcohol intake: current Alcohol intake frequency: 0-2 drinks per day Alcohol ty pe: beer Patient Tobacco Use Status: Never used Tobacco Second Hand Smoke Exposure: No Advance Directives: No Advance Directives Information Provided: No Current occupational status: retired Physical Exam Vital Signs: Vital Signs: Last Vital Signs Temp 98 F 12/08/21 13:55 Pulse 106 H 12/08/21 13:55 Resp 17 12/08/21 13:55 BP 114/74 12/08/21 13:55 Pulse Ox 98 12/08/21 13:55 O2 Del Method 12/08/21 13:55 BMI result Body Mass Index 26.7 Const: General: cooperative, healthy appearing, comfortable and no acute distress Orientation/consciousness: patient oriented x3 Limitations: no limitations HEENT: Head: Yes normal to inspection Ears: hearing grossly normal bilaterally General nose exam: Normal external nose present Face and sinus: Yes normal facial exam Mouth: Normal oral and palatal mucosa present Throat: Yes posterior oropharynx normal Eyes: General: appearance normal, both eyes and all related structures Pupils: Equal, round and reactive pupils present Neck: Neck: Yes normal visual inspection Chest: Chest palpation & inspection: normal inspection of the chest Resp: Effort & Inspection: normal respiratory effort Auscultation: clear to auscultation bilaterally Cardio: Rate: regular rate Rhythm: regular rhythm Peripheral pulses: Per ipheral pulses 2+ throughout GI: Inspection: Yes normal to inspection Palpation (GI): Soft to palpation and nontender Auscultation: normal bowel sounds Back/Spine/Pelvis: Thoracic/Lumbar Spine: thoracic and lumbar spine normal to inspection Skin: General skin exam: no rashes or lesions noted Neuro: General: patient oriented x3, no focal motor deficits and normal sensation to monofilament Cranial nerves: Yes Equal, round and reactive pupils present Cognition (Neuro): normal cognition Speech: No Abnormal speech present Gait exam (Neuro): Normal gait present Motor exam (neuro): 5/5 motor strength present throughout Extrem: Other: 1 + edema to LLE extending to thigh with swelling. compartments soft and compressible. 2+ DP and PT pulses General: Yes normal to inspection Course Course Course Narrative: Patient has a quite extensive DVT of the left lower extremity which involves the common femoral vein. He will need labs. Due to the extensive DVT patient will also need a CTA to rule out PE. He denies any chest pain, shortness of breath, hemoptysis, fevers or chills. Patient has a significant history of hemorrhagic cystitis and I am hesitant to start him on a Doacs with this history. I discussed the case with doctors 80. Recommendations are for the patient to have a CTA of the chest to rule out PE, discussed his case with vascular to determine if an IVC filter is warranted and admit to medicine overnight for monitoring. Reevaluation(s) Reevaluation #1: 1999-I did speak Dr. Napier from vascular surgery. He will place an IVC filter in the patient tomorrow morning. He recommended giving the patient dose of Lovenox tonight. Hold dose and morning as patient is on the OR schedule for 8 a.m.. I spoke to Dr. Ramirez who accepted admission of patient Reevaluation #2: 2049-CTA is negative for pulmonary embolism. Patient has mild MARYSE. He received 1 L of normal saline here in the emergency room MDM - Extremity Injury (Lower) MDM Narrative Medical decision making narrative: This is a 76-year-old male with history of hypertension, prostate cancer status post resection, several episodes of hemorrhagic cystitis most recently in July of 2021 which required him to be on TXA orally for period of time. Patient tells me that he has had no recent hematuria. He is followed by Dr. Trevino from Urology. He presents today after several days of travel he noticed some swelling and redness to his left thigh in his lower left leg. Patient had a ultrasound from triage that was ordered to eval for DVT Medical Records Attestation: I reviewed the patient's medical records. Lab Data Attestation: I reviewed the patient's lab results. Result diagrams: 12/08/21 19:08 12/08/21 19:08 Labs: Lab Results 12/08/21 12/08/21 12/08/21 Range/Units 19:08 19:08 19:08 WBC 9.1 (4.8-10.8) X10*3/uL RBC 3.71 L (4.60-5.80) X10*6/uL Hgb 10.8 L (14.0-18.0) g/dl Hct 33.8 L (42.0-52.0) % MCV 91.1 (80.0-98.0) fL MCH 29.1 (27.0-33.0) pg MCHC 32.0 (31.0-36.0) g/dl RDW 13.8 (11.0-16.0) % Plt Count 279 (160-400) X10*3/uL MPV 7.8 L (9.4-12.4) fL Immature Gran % (Auto) 0.6 H (0.0-0.4) % Neut % (Auto) 78.1 H (45-73) % Lymph % (Auto) 11.1 L (20-40) % [place] % (Auto) 7.9 (2-11) % Eos % (Auto) 2.0 (0-4) % Baso % (Auto) 0.3 (0-2) % Lymph # (Auto) 1.0 L (1.2-4.9) X10*3/uL [place] # (Auto) 0.7 (0.1-1.2) X10*3/uL Eos # (Auto) 0.2 (0.0-0.4) X10*3/uL Baso # (Auto) 0.0 (0.0-0.2) X10*3/uL Abs Immat Gran (auto) 0.05 H (0.00-0.03) X10*3/uL Absolute Neuts (auto) 7.1 (2.0-8.3) x10*3/uL Absolute Nucleated RBC 0.000 (0.0-0.012) X10*3/uL Nucleated RBC % (auto) 0.0 (0.0-0.2) /100WBC PT 13.8 H (10.0-13.1) SEC INR 1.2 H (0.9-1.1) APTT 30.9 (26.0-36.4) SEC Sodium 140 (135-145) mmol/L Potassium 5.4 H (3.3-5.1) mmol/L Chloride 105 (96-108) mmol/L Carbon Dioxide 23 (22-29) mmol/L Anion Gap 17 (12-20) BUN 43 H D (9-16) mg/dL Creatinine 1.41 H (0.5-1.4) mg/dL Estim Creat Clear Calc 43.8 Estimated GFR 49 Random Glucose 97 (60-115) mg/dL Calcium 9.3 (8.4-10.2) mg/dL Total Bilirubin 0.4 (0.0-1.0) mg/dL Direct Bilirubin 0.3 (0.0-0.5) mg/dL AST 22 (5-37) U/L ALT 25 (0-40) U/L Alkaline Phosphatase 66 (39-117) U/L Total Protein 7.4 (6.5-8.0) g/dL Albumin 3.8 (3.5-5.0) g/dL Imaging Data Venous US: Attestation: I personally reviewed and interpreted this imaging study as follows: Radiologist's impression: [address] [address] Ultrasound Report Signed Patient: Charles Lucero MR#: [id number] : 1945 Acct:[id number] Age/Sex: 76 / M ADM Date: 12/08/21 Loc: HO.ED Attending Dr: Ordering Physician: Generic ED Physician Date of Service: 12/08/21 Procedure(s): US venous duplex LE LT Accession Number(s): [id number] cc: Generic ED Physician~ EXAMINATION:? US VENOUS ULTRASOUND WITH DOPPLER LOWER EXTREMITY, LEFT CLINICAL INFORMATION:? Left lower extremity pain and swelling. COMPARISON:? None TECHNIQUE: Ultrasound of the deep veins is performed from the hip to the calf with compression sonography and color and pulse Doppler assessment. Spectral analysis with color-flow imaging is performed. FINDINGS: Examination demonstrates relatively echogenic intraluminal material with and lack of compression extending at least from the common femoral vein to the distal aspect of the femoral vein. Minimal peripheral flow is seen within the distal aspect of the femoral vein. No flow is demonstrated within the remainder of the femoral vein or common femoral vein. Flow is seen within the greater saphenous vein, popliteal vein, and visualized infrapopliteal veins. The iliac veins could not be evaluated adequately. US/US venous duplex LE LT IMPRESSION: ? Findings, as above, consistent with left lower extremity deep venous thrombosis, age indeterminate. ? PARAMJIT Zabala was directly informed of the findings by telephone at approximately 4:20 PM on December 08, 2021. CT scan - chest: Attestation: I personally reviewed and interpreted this imaging study as follows: Radiologist's impression: FINDINGS: QUALITY OF STUDY/CONTRAST BOLUS: Satisfactory. PULMONARY ARTERIES: No central or segmental pulmonary emboli.? THORACIC AORTA: No aneurysm or dissection. There is mild atherosclerotic calcifications. LUNG: At the lateral left base (7:308), a 6 mm noncalcified nodule is seen. There are a few benign, calcified granulomas. No mass, infiltrate or groundglass opacity is seen. There is no generalized increase in peripheral interlobular septal markings. No small airway thickening is seen. The central airways appear patent. PLEURA: No pleural effusion or pneumothorax. MEDIASTINUM: The thyroid is unremarkable. There are atherosclerotic calcifications of the great vessel origins and coronary arteries. No mediastinal or hilar lymphadenopathy is seen. ?CHEST WALL/AXILLA: No axillary or internal mammary lymphadenopathy. OSSEOUS STRUCTURES: There is multi-level marked thoracic spondylosis, with an appearance suggesting possible DISH (diffuse idiopathic skeletal hyperostosis). No acute or aggressive osseous abnormality is seen.? UPPER ABDOMEN: There are incompletely characterized extensive bilateral renal cysts. The included adrenal glands are unremarkable. No reflux of contrast into the hepatic veins to suggest elevated right heart pressures. CT/CT angio chest PE protocol IMPRESSION: ? 1. No pulmonary embolus or thoracic aortic aneurysm or dissection is seen. ? 2. A 6 mm noncalcified lateral left base nodule is seen. There are further rare small benign, calcified granulomas. According to the UPDATED 2017 Fleischner Society recommendations, the advised follow-up imaging for multiple solid nodules, the largest measuring 6 mm or greater, is: ?? LOW RISK PATIENT: CT at 3-6 months, then consider CT at 18-24 months. ?? HIGH RISK PATIENT: CT at 3-6 months, then at 18-24 months. ? 3. No thoracic lymphadenopathy or pleural effusion is seen. ? 4. Skeletal findings suggest possible DISH. No aggressive osseous lesion is seen. ? VTE: negative Discharge Plan Discharge Clinical Impression: DVT (deep venous thrombosis), MARYSE (acute kidney injury) Patient Disposition: Admitted As Inpatient
[2021-12-08 19:24] LABS: MANUAL DIFF FLAG NO
[2021-12-08 19:29] LABS: Basophils Percent Auto 0.3 % (0-2); Eosinophils Absolute Auto 0.2 X10*3/uL (0.0-0.4); Hematocrit 33.8 % (42.0-52.0); Hemoglobin 10.8 g/dl (14.0-18.0); Imm Gran Abs Auto 0.05 X10*3/uL (0.00-0.03); Imm Gran Pct Auto 0.6 % (0.0-0.4); Lymphocytes Percent Auto 11.1 % (20-40); Mean Corpuscular Hemoglobin 29.1 pg (27.0-33.0); Mean Corpuscular Volume 91.1 fL (80.0-98.0); Mean Platelet Volume 7.8 fL (9.4-12.4); Monocytes Absolute Auto 0.7 X10*3/uL (0.1-1.2); Monocytes Percent Auto 7.9 % (2-11); Neutrophils Absolute Auto 7.1 x10*3/uL (2.0-8.3); Neutrophils Percent Auto 78.1 % (45-73); Platelet Count 279 X10*3/uL (160-400); Red Blood Count 3.71 X10*6/uL (4.60-5.80); Red Cell Distribution Width 13.8 % (11.0-16.0); White Blood Count 9.1 X10*3/uL (4.8-10.8)
[2021-12-08 19:37] LABS: INTERNATIONAL NORM RATIO 1.2 (0.9-1.1); Prothrombin Time 13.8 SEC (10.0-13.1)
[2021-12-08 19:41] LABS: Alanine Aminotransferase 25 U/L (0-40); Albumin Level 3.8 g/dL (3.5-5.0); Alkaline Phosphatase 66 U/L (39-117); Anion Gap 17 (12-20); Aspartate Amino Transferase 22 U/L (5-37); Bilirubin Direct 0.3 mg/dL (0.0-0.5); Bilirubin Total 0.4 mg/dL (0.0-1.0); Blood Urea Nitrogen 43 mg/dL (9-16); Calcium 9.3 mg/dL (8.4-10.2); Carbon Dioxide 23 mmol/L (22-29); Chloride 105 mmol/L (96-108); Creatinine Clr Calc Pharmacy 43.8; Estimated Glomerular Filt Rate 49; Glucose Random 97 mg/dL (60-115); Potassium 5.4 mmol/L (3.3-5.1); Sodium 140 mmol/L (135-145); Total Protein 7.4 g/dL (6.5-8.0)
[2021-12-08] MEDS: iohexoL 350 MG/ML 100 ML INFUS..BTL IV (20:01)
[2021-12-08] MEDS: 0.9 % Sodium Chloride 1,000 ML 999 ML IV (20:06)
[2021-12-08 20:15] LABS: Partial Thromboplastin Time 30.9 SEC (26.0-36.4)
[2021-12-08] MEDS: Enoxaparin Sodium 80 MG/0.8 ML SYRINGE SUBCUT (20:19)
--- NOTE | 2021-12-08 20:27 | PHA.MEDREC ---
Pharmacy Consult ? Medication Reconciliation Pharmacy has completed the medication reconciliation.
--- NOTE | 2021-12-08 20:36 | P.HPHOSP_ITS ---
History of Present Illness Date of Service: 12/08/21 Chief Complaint: leg swelling 76-year-old male with past medical history of prostate cancer status post prostatectomy as well as chemoradiation, status post radiation cystitis with history of recurrent episodes of hemorrhagic cystitis requiring hyperbaric chamber in the past, history of CKD, HTN, presents the hospital with complaints of left leg swelling and discomfort. Patient reports that he was traveling for a couple of days last week, long history of was about [address], he reports that he noticed significant swelling and difficulty with pain when walking up stairs mostly about 1 day ago. He decided to come to the hospital for evaluation. Patient denies any shortness of breath, no cough, no abdominal pain nausea or vomiting, no diarrhea constipation, no urinary symptoms. Patient arrival found to be hemodynamically stable no significant abnormal vitals Labs are significant for WBC count 9.1, hemoglobin of 10.8, medical with 80.8 potassium 5.4, BUN of 43, creatinine 1.41 with a baseline of around 1.1, Venous duplex of left leg shows left lower extremity deep venous thrombosis, age indeterminate Chest CT angiogram showed no evidence of PE, has multiple small nodules and 1 nodule that measures 6 mm. Case was discussed with Dr. Napier, given his history of significant hemorrhagic cystitis patient is scheduled for IVC filter placement in a.m.. Review of Systems Review of Systems: Yes all other systems are reviewed and are negative [facility] Medical History Benign essential hypertension Diverticulosis History of prostate cancer Hypertension Impaired fasting glucose Osteoarthritis of left knee Overweight (BMI 25.0-29.9) Pure hypercholesterolemia Radiation cystitis Renal cyst Vitamin D deficiency Family History Father Cancer Mother Colon cancer Surgical History History of ankle surgery History of colonoscopy History of meniscectomy of left knee (~06/05/12) Hx of prostatectomy Hx of umbilical hernia repair Social History Housing: House Alcohol intake: current Alcohol intake frequency: 0-2 drinks per day Alcohol type: beer Patient Tobacco Use Status: Never used Tobacco Second Hand Smoke Exposure: No Advance Directives: No Advance Directives Information Provided: No Current occupational status: retired Meds Allergies Allergy/AdvReac Type Severity Reaction Status Date / Time No Known Allergies Allergy Verified 11/11/21 15:30 Active Medications: Current Medications Sodium Chloride (Ns) 1,000 mls @ 999 mls/hr IV .Q1H1M STA Stop: 12/08/21 20:43 Last Admin: 12/08/21 20:06 Dose: 999 mls/hr Pharmacy Consult (Consult Rx Perform Med Rec) 1 each MISCELLANE ONCE PRN PRN Reason: Consult order Home Medications Medication Instructions Recorded Confirmed Last Taken Type cholecalciferol (vitamin D3) 10 10 mcg PO DAILY 06/01/20 12/08/21 Unknown H istory mcg (400 unit) tablet multivitamin 1 tab PO DAILY 06/01/20 12/08/21 Unknown History ascorbic acid (vitamin C) 500 mg 500 mg PO DAILY 12/08/21 12/08/21 Unknown History tablet (Vitamin C) Physical Exam Vital Signs and Narrative: Vital Signs: Last Vital Signs Temp 98 F 12/08/21 13:55 Pulse 106 H 12/08/21 13:55 Resp 17 12/08/21 13:55 BP 114/74 12/08/21 13:55 Pulse Ox 98 12/08/21 13:55 O2 Del Method 12/08/21 13:55 BMI result Body Mass Index 26.7 Const: General: cooperative and no acute distress Orientation/cons ciousness: patient oriented x3 Eyes: General: appearance normal, both eyes and all related structures Resp: Effort & Inspection: normal respiratory effort Auscultation: clear to auscultation bilaterally Cardio: Rate: regular rate Rhythm: regular rhythm GI: Palpation (GI): Soft to palpation Auscultation: normal bowel sounds Skin: General skin exam: no rashes or lesions noted Neuro: General: patient oriented x3 Cognition (Neuro): normal cognition Extrem: Other: Significant edema in the left leg, minimal tenderness on palpation Results Labs CBC and Chem 7: 12/08/21 19:08 12/08/21 19:08 Labs: Laboratory Results - last 24 hr 12/08/21 12/08/21 12/08/21 19:08 19:08 19:08 MCV 91.1 MCH 29.1 MCHC 32.0 RDW 13.8 Plt Count 279 MPV 7.8 L Immature Gran % (Auto) 0.6 H Neut % (Auto) 78.1 H Lymph % (Auto) 11.1 L [place] % (Auto) 7.9 Eos % (Auto) 2.0 Baso % (Auto) 0.3 Lymph # (Auto) 1.0 L [place] # (Auto) 0.7 Eos # (Auto) 0.2 Baso # (Auto) 0.0 Abs Immat Gran (auto) 0.05 H Absolute Neuts (auto) 7.1 Absolute Nucleated RBC 0.000 Nucleated RBC % (auto) 0.0 PT 13.8 H INR 1.2 H APTT 30.9 Anion Gap 17 Estim Creat Clear Calc 43.8 Estimated GFR 49 Random Glucose 97 Calcium 9.3 Total Bilirubin 0.4 Direct Bilirubin 0.3 AST 22 ALT 25 Alkaline Phosphatase 66 Total Protein 7.4 Albumin 3.8 Imaging Radiologist's Impressions: Impressions Venous Duplex 12/08/21 15:34 IMPRESSION: Findings, as above, consistent with left lower extremity deep venous thrombosis, age indeterminate. PARAMJIT Zabala was directly informed of the findings by telephone at approximately 4:20 PM on December 08, 2021. Assessment and Plan (1) DVT (deep venous thrombosis): Status: Acute (2) MARYSE (acute kidney injury): Status: Acute Plan 76-year-old male with past medical history of prostate cancer status post ra diation therapy and prostatectomy presents to the hospital with complaints of left leg swelling found to have DVT # acute left lower extremity DVT - no evidence of PE on CT angiogram - case was discussed with vascular surgery, will give 1 dose of Lovenox per the recommendation, patient is scheduled for IVC filter in a.m. - will likely need clot extraction by vascular surgery outpatient in the near future( good candidate per vascular) - will follow CBC, and respiratory status # MARYSE - treat with IV fluids - Follow BMP # Hypertension - stable - continue home antihypertensives DVT prophylaxis: Lovenox Quality Stroke Does the patient have a stroke diagnosis?: No VTE Prior VTE?: No VTE Risk Level:: Medical - moderate - high VTE Device Contraindication: Treatment Not Indicated VTE Drug Contraindication: N/A - Med Ordered
[2021-12-08] MEDS: Lactated Ringers 1,000 ML 100 ML IVCONT (21:56)
--- NOTE | 2021-12-08 22:01 | PC.NURSE ---
pt up to bathroom independently. steady gait. LR running according to MAR. IV patent and flushes well.
[2021-12-08] MEDS: 0.9 % Sodium Chloride 1,000 ML 100 ML IVCONT (22:08)
[2021-12-08 23:30] VITALS: BP 129/58; PULSE 78; RESP 18; O2SAT 98
[2021-12-08 23:37] LABS: COVID-19 Test Negative (Negative)
[2021-12-09] VITALS (12 sets, daily range): BP systolic 116–146; BP diastolic 61–75; PULSE 69–97; RESP 16–18; TEMP 36.4–36.8; O2SAT 97–99
[2021-12-09 05:55] LABS: Basophils Percent Auto 0.3 % (0-2); Eosinophils Absolute Auto 0.2 X10*3/uL (0.0-0.4); Eosinophils Percent Auto 2.5 % (0-4); Hematocrit 29.6 % (42.0-52.0); Hemoglobin 9.6 g/dl (14.0-18.0); Imm Gran Abs Auto 0.02 X10*3/uL (0.00-0.03); Imm Gran Pct Auto 0.3 % (0.0-0.4); Lymphocytes Absolute Auto 0.9 X10*3/uL (1.2-4.9); Lymphocytes Percent Auto 13.8 % (20-40); MANUAL DIFF FLAG NO; Mean Corpuscular HGB Conc 32.4 g/dl (31.0-36.0); Mean Corpuscular Hemoglobin 29.4 pg (27.0-33.0); Mean Corpuscular Volume 90.8 fL (80.0-98.0); Mean Platelet Volume 7.9 fL (9.4-12.4); Monocytes Absolute Auto 0.7 X10*3/uL (0.1-1.2); Monocytes Percent Auto 10.5 % (2-11); Neutrophils Absolute Auto 4.6 x10*3/uL (2.0-8.3); Neutrophils Percent Auto 72.6 % (45-73); Platelet Count 234 X10*3/uL (160-400); Red Blood Count 3.26 X10*6/uL (4.60-5.80); Red Cell Distribution Width 13.6 % (11.0-16.0); White Blood Count 6.4 X10*3/uL (4.8-10.8)
[2021-12-09] MEDS: 0.9 % Sodium Chloride Flush 3 ML SYRINGE IVFLUSH (06:09)
--- NOTE | 2021-12-09 06:24 | PC.NURSE ---
NS and LR running per JUN. 20 in left AC, patent. patient reports no pain at this time. A&O x3. pulses equal bilaterally.patient resting quietly.
[2021-12-09 06:48] LABS: Anion Gap 11 (12-20); Blood Urea Nitrogen 32 mg/dL (9-16); Calcium 8.3 mg/dL (8.4-10.2); Calcium 8.4 mg/dL (8.4-10.2); Carbon Dioxide 25 mmol/L (22-29); Chloride 109 mmol/L (96-108); Creatinine Clr Calc Pharmacy 53.7; Creatinine Clr Calc Pharmacy 54.2; Estimated Glomerular Filt Rate > 60; Glucose Random 96 mg/dL (60-115); Glucose Random 97 mg/dL (60-115); Potassium 5.1 mmol/L (3.3-5.1); Potassium 5.2 mmol/L (3.3-5.1); Sodium 140 mmol/L (135-145)
--- NOTE | 2021-12-09 08:03 | PM.CNGS ---
History of Present Illness Consult details Consult date: 12/09/21 Reason for consult: other (DVT) Narrative: Very pleasant 76-year-old gentleman with a prior history hemorrhagic cystitis and microscopic hematuria presented to the emergency room with left lower extremity pain and discomfort. He had taken several trips over the last 2 weeks where he had long drives nearly 4 hours. Most recently it was a drive to [facility] where he noticed increased swelling of the leg. He now presents to the hospital with concerns about his left leg. Upon workup from the emergency room he was noted to have a DVT. Due to his history of hemorrhagic cystitis he now presents to us for evaluation for IVC filter placement. Review of Systems Review of Systems: Yes all other systems are reviewed and are negative Constitutional: Constitutional: Reports no additional constitutional complaints ENT: Reports Normal hearing present Cardiovascular: Cardiovascular: Denies chest pain, Denies chest pain at rest, Denies chest pain with activity and Denies pedal edema Respiratory: Respiratory: Denies cough Gastrointestinal: Gastrointestinal: Denies abdominal pain Musculoskeletal: Musculoskeletal: Denies abnormal gait, Denies muscle cramps and Denies radiating pain into limb Integumentary/Breasts: Skin/Breast: Denies skin ulcer and Denies wounds Neurologic: Reports Normal hearing present and Denies abnormal gait Psychiatric: Psychiatric: Reports no additional psychiatric complaints PMFSH Past Medical History Medical History Benign essential hypertension Diverticulosis History of prostate cancer Hypertension Impaired fasting glucose Osteoarthritis of left knee Overweight (BMI 25.0-29.9) Pure hypercholesterolemia Radiation cystitis Renal cyst Vitamin D deficiency Family History Family History Father Cancer Mother Colon cancer Surgical History Surgical History History of ankle surgery History of colonoscopy History of meniscectomy of left knee (~06/05/12) Hx of prostatectomy Hx of umbilical hernia repair Social History Social History Housing: House Alcohol intake: current Alcohol intake frequency: 0-2 drinks per day Alcohol type: beer Patient Tobacco Use Status: Never used Tobacco Smoked in Last 30 Days: No Second Hand Smoke Exposure: No Use of substances other than those prescribed or required for medical reasons: No Advance Directives: No Advance Directives Information Provided: No Current occupational status: retired Meds Allergies Allergy/AdvReac Type Severity Reaction Status Date / Time No Known Allergies Allergy Verified 11/11/21 15:30 Active Medications: Current Medications Acetaminophen (Acetaminophen 325 Mg Tablet) 650 mg PO Q6H PRN PRN Reason: Pain, Mild (Pain Scale 1-3) Docusate Sodium (Docusate Sodium 100 Mg Capsule) 100 mg PO DAILY PRN PRN Reason: Constipation Lactated Ringer's (Lr) 1,000 mls @ 100 mls/hr IVCONT .Q10H [facility] Last Admin: 12/08/21 21:56 Dose: 100 mls/hr Sodium Chloride (Ns) 1,000 mls @ 100 mls/hr IVCONT .Q10H [facility] Last Admin: 12/08/21 22:08 Dose: 100 mls/hr Ondansetron HCl (Ondansetron Hcl 4 Mg/2 Ml Vial) 4 mg IVPUSH Q8H PRN PRN Reason: Nausea and Vomiting Pharmacy Consult (Consult Rx Perform Med Rec) 1 each MISCELLANE ONCE PRN PRN Reason: Consult order Sodium Chloride (0.9 % Sodium Chloride Flush 3 Ml Syringe) 3 ml IVFLUSH QSHIFT [facility] Last Admin: 12/09/21 06:09 Dose: 3 ml Home Medications Medication Instructions Recorded Confirmed Last Taken Type cholecalciferol (vitamin D3) 10 10 mcg PO DAILY 06/01/20 12/08/21 Unknown History mcg (400 unit) tablet multivitamin 1 tab PO DAILY 06/01/20 12/08/21 Unknown History ascorbic acid (vitamin C) 500 mg 500 mg PO DAILY 12/08/21 12/08/21 Unknown History tablet (Vitamin C) Physical Exam Vital Signs: Vital Signs: Last Vital Signs Temp 98 F 12/08/21 13:55 Pulse 80 12/09/21 05:26 Resp 16 12/09/21 05:26 BP 116/63 12/09/21 05:26 Pulse Ox 98 12/09/21 05:26 O2 Del Method 12/09/21 05:26 BMI result Body Mass Index 26.7 Const: General: cooperative, healthy appearing and comfortable Orientation/consciousness: oriented to person, oriented to place and oriented to time HEENT: Head: Yes normal to inspection Neck: Neck: Yes normal visual inspection Carotids: no bruits Chest: Chest palpation & inspection: normal inspection of the chest Resp: Effort & Inspection: normal respiratory effort and able to speak in complete sentences Auscultation: clear to auscultation bilaterally, no crackles, no rales, no rhonchi and no wheezes Cardio: Rate: regular rate Rhythm: regular rhythm Heart sounds: S1 normal heart sound present and S2 normal heart sound present Bruits: no carotid bruits Peripheral pulses: Peripheral pulses 2+ throughout GI: Inspection: Yes normal to inspection Skin: Wounds: no wounds Hair: normal Neuro: General: oriented to person, oriented to place and oriented to time Cranial nerves: Yes CN's II-XII intact bilaterally and Yes Normal hearing present Cognition (Neuro): normal cognition Motor exam (neuro): 5/5 motor strength present throughout Extrem: Other: venous exam: +2 edema left leg General: No clubbing, No cyanosis and No edema Psych: Appearance: grossly normal Mental Status: mental status grossly normal Speech and movement: Normal speech and movement present Results Labs Result diagrams: 12/09/21 05:44 12/09/21 05:44 Labs: Abnormal lab results 12/08/21 12/08/21 12/08/21 Range/Units 19:08 19:08 19:08 RBC 3.71 L (4.60-5.80) X10*6/uL Hgb 10.8 L (14.0-18.0) g/dl Hct 33.8 L (42.0-52.0) % MPV 7.8 L (9.4-12.4) fL Immature Gran % (Auto) 0.6 H (0.0-0.4) % Neut % (Auto) 78.1 H (45-73) % Lymph % (Auto) 11.1 L (20-40) % Lymph # (Auto) 1.0 L (1.2-4.9) X10*3/uL Abs Immat Gran (auto) 0.05 H (0.00-0.03) X10*3/uL PT 13.8 H (10.0-13.1) SEC INR 1.2 H (0.9-1.1) Potassium 5.4 H (3.3-5.1) mmol/L Chloride (96-108) mmol/L Anion Gap (12-20) BUN 43 H D (9-16) mg/dL Creatinine 1.41 H (0.5-1.4) mg/dL Calcium (8.4-10.2) mg/dL 12/09/21 12/09/21 12/09/21 Range/Units 05:44 05:44 05:44 RBC 3.26 L (4.60-5.80) X10*6/uL Hgb 9.6 L (14.0-18.0) g/dl Hct 29.6 L (42.0-52.0) % MPV 7.9 L (9.4-12.4) fL Immature Gran % (Auto) (0.0-0.4) % Neut % (Auto) (45-73) % Lymph % (Auto) 13.8 L (20-40) % Lymph # (Auto) 0.9 L (1.2-4.9) X10*3/uL Abs Immat Gran (auto) (0.00-0.03) X10*3/uL PT (10.0-13.1) SEC INR (0.9-1.1) Potassium 5.2 H (3.3-5.1) mmol/L Chloride 109 H 109 H (96-108) mmol/L Anion Gap 11 L 11 L (12-20) BUN 32 H 32 H (9-16) mg/dL Creatinine (0.5-1.4) mg/dL Calcium 8.3 L (8.4-10.2) mg/dL Short CBC 12/08/21 12/09/21 Range/Units 19:08 05:44 WBC 9.1 6.4 (4.8-10.8) X10*3/uL Hgb 10.8 L 9.6 L (14.0-18.0) g/dl Hct 33.8 L 29.6 L (42.0-52.0) % Plt Count 279 234 (160-400) X10*3/uL BMP 12/08/21 12/09/21 12/09/21 19:08 05:44 05:44 Sodium 140 140 140 Potassium 5.4 H 5.1 5.2 H Chloride 105 109 H 109 H Carbon Dioxide 23 25 25 BUN 43 H D 32 H 32 H Creatinine 1.41 H 1.14 1.15 Calcium 9.3 8.4 D 8.3 L Liver Function 12/08/21 Range/Units 19:08 Total Bilirubin 0.4 (0.0-1.0) mg/dL Direct Bilirubin 0.3 (0.0-0.5) mg/dL AST 22 (5-37) U/L ALT 25 (0-40) U/L Alkaline Phosphatase 66 (39-117) U/L Albumin 3.8 (3.5-5.0) g/dL All other labs normal. Imaging Additional studies: CT scan negative for PE ultrasound positive for left lower extremity DVT. Written report and images were reviewed. Assessment and Plan (1) DVT (deep venous thrombosis): Status: Acute Plan In short patient has a left lower extremity DVT. Due to his history of hemorrhagic cystitis in bleeding issues we have elected to place an IVC filter. Risks benefits complications were discussed in detail with the patient. He demonstrated a clear understanding and would like to move forward. Thank you for allowing us to participate in his care. Please note 60 minutes was required for evaluation of the patient coordination between the ER and hospitalists, and coordination of urgently booking intervention. Procedures Date of Service Date of Service: 12/09/21
--- NOTE | 2021-12-09 09:39 | W.PM.OPN ---
Operative Note Operative Note Date of Service: 12/09/21 Narrative: Angiogram report from [facility] Preoperative diagnosis: DVT Postoperative diagnosis: Same Procedure: 1. Ultrasound-guided right common femoral vein access 2. vena cavogram 3. insertion of IVC filter Surgeon:Edd Napier M.D., FACS, RPVI Gas And Oil Checker:None Anesthesia: Local with moderate conscious sedation. Total intraservice moderate sedation time was 20 minutes. I monitored the patient's level of consciousness and physiologic status continuously throughout the procedure. Specimens:none Drains:none Estimated blood loss: Less than 10 ml Implant: Bard Milana IVC filter Indications: 76-year-old gentleman who had prior prolonged trips developed an acute left lower extremity DVT. Due to his history of hemorrhagic cystitis and bleeding he will require IVC filter in case he has to be taken off of anticoagulation. He now presents for filter placement The patient has signed the informed consent after reviewing risks, complications, benefits, and alternatives previously discussed with the patient. The patient was given the opportunity to ask any additional questions or voice any concerns. All questions were answered to the patient's satisfaction. Procedure in detail: Patient was brought to the angiography suite prior to which a time-out was called for patient identification and site verification. Bilateral groins were prepped and draped in the standard surgical fashion. Under ultrasound guidance right common femoral vein was punctured with micro puncture needle and wire. Subsequently a precision 5 German sheath was then placed. Bentson wire was advanced to the level of the vena cava. vena cavogram was then undertaken. At this time we exchanged out for the Bard filter sheath once in position at the L2-L3 interspace we then brought in the filter into position and subsequently deployed. Once this was done and removed completion vena cavogram was then undertaken. Sheath was then removed. Direct pressure was held for 10 minutes. Patient tolerated the procedure well. Interpretation of films: 1. Ultrasound demonstrates appropriate femoral puncture. Image of which was saved. 2. Vena cavogram demonstrates no thrombus and cava was less than 3 cm 3. completion vena cavogram demonstrates appropriate placement IVC filter Conclusion: 1. successful placement of Bard Milana IVC filter 2. Anticoagulation status: resume per medicine team This note is constructed using voice recognition software. While every effort has been made to ensure accuracy, filtration plant operator errors may have been included. Thank you for allowing me to participate in the care of your patient. Yours sincerely, Edd Napier MD, FACS, R.P.V.I.
[2021-12-09] MEDS: iohexoL 300 MG/ML 50 ML INFUS..BTL IV (09:54)
[2021-12-09 12:43] LABS: Anion Gap 13 (12-20); Blood Urea Nitrogen 24 mg/dL (9-16); Calcium 8.4 mg/dL (8.4-10.2); Carbon Dioxide 25 mmol/L (22-29); Chloride 108 mmol/L (96-108); Estimated Glomerular Filt Rate > 60; Glucose Random 102 mg/dL (60-115); Potassium 4.6 mmol/L (3.3-5.1); Sodium 141 mmol/L (135-145)
--- NOTE | 2021-12-09 14:28 | P.DS_ITS ---
DS: Providers Provider Date of Service: 12/09/21 Date of admission: 12/08/21 20:33 Date of discharge: 12/09/21 Primary care physician: Cade Enriquez MD Consults: 12/08/21 20:03 Consult to Vascular Surgery Stat Consulting Provider: Edd Napier Reason for consultation: LLE DVT, needs ivc filter DS: Diagnosis Discharge Diagnosis (1) DVT (deep venous thrombosis): Status: Acute (2) Hemorrhagic cystitis: Status: Acute (3) MARYSE (acute kidney injury): Status: Acute (4) Radiation cystitis: Status: Acute DS: Summary Hospital Course Hospital Course: from admission H+P by hospitalist Newtonthony Ramirez, 12/08/21: 76-year-old male with past medical history of prostate cancer status post prostatectomy as well as chemoradiation, status post radiation cystitis with history of recurrent episodes of hemorrhagic cystitis requiring hyperbaric chamber in the past, history of CKD, HTN, presents the hospital with complaints of left leg swelling and discomfort.? Patient reports that he was traveling for a couple of days last week, long history of was about [address], he reports that he noticed significant swelling and difficulty with pain when walking up stairs mostly about 1 day ago.? He decided to come to the hospital for evaluation.? Patient denies any shortness of breath, no cough, no abdominal pain nausea or vomiting, no diarrhea constipation, no urinary symptoms.? Patient arrival found to be hemodynamically stable no significant abnormal vitals Labs are significant for WBC count 9.1, hemoglobin of 10.8, medical with 80.8 potassium 5.4, BUN of 43, creatinine 1.41 with a baseline of around 1.1, Venous duplex of left leg shows left lower extremity deep venous thrombosis, age indeterminate Chest CT angiogram showed no evidence of PE, has multiple small nodules and 1 nodule that measures 6 mm. Case was discussed with Dr. Napier, given his history of significant hemorrhagic cystitis patient is scheduled for IVC filter placement in a.m.. He was admitted to the hospitalist service. Dr Edd Napier, the vascular surgeon, was consulted. One dose of Lovenox was given and on 12/09/21, he underwent IVC filter placement. Therapeutic anticoagulation was recommended, though is with risk of bleeding given his hemorrhagic radiation cystitis. He was placed on half-dose apixaban [5 mg bid x 7 days, then 2.5 mg bid] and was instructed to stop taking it if he develops anything more than pink-tinged urine, and to call his urologist, Dr Ruperto Trevino. This plan was reviewed with Dr Trevino as well. He will follow up with both Sunshine Napier and Uriel within 2 weeks, and should see his primary doctor in 1 week. TXA was also discontinued. Time Spent with Patient Time attestation: Total time spent providing and/or coordinating discharge services: Discharge coordination time: Greater than 30 minutes Quality: Safe Use of Opioids Does Pt have an Active Cancer Diagnosis on the Problem List?: No Quality: Stroke Does the patient have a stroke diagnosis?: No Physical Exam Vital Signs: Vital Signs: Last Vital Signs Temp 98.2 F 12/09/21 09:15 Pulse 84 12/09/21 14:00 Resp 17 12/09/21 14:00 BP 121/65 12/09/21 14:00 Pulse Ox 99 12/09/21 14:00 O2 Del Method 12/09/21 14:00 BMI result Body Mass Index 26.7 DS: Data Data Completed and Pending Labs on day of discharge: Laboratory Results - last 24 hr 12/08/21 12/08/21 12/08/21 19:08 19:08 19:08 WBC 9.1 RBC 3.71 L Hgb 10.8 L Hct 33.8 L MCV 91.1 MCH 29.1 MCHC 32.0 RDW 13.8 Plt Count 279 MPV 7.8 L Immature Gran % (Auto) 0.6 H Neut % (Auto) 78.1 H Lymph % (Auto) 11.1 L Barbour % (Auto) 7.9 Eos % (Auto) 2.0 Baso % (Auto) 0.3 Lymph # (Auto) 1.0 L Barbour # (Auto) 0.7 Eos # (Auto) 0.2 Baso # (Auto) 0.0 Abs Immat Gran (auto) 0.05 H Absolute Neuts (auto) 7.1 Absolute Nucleated RBC 0.000 Nucleated RBC % (auto) 0.0 PT 13.8 H INR 1.2 H APTT 30.9 Sodium 140 Potassium 5.4 H Chloride 105 Carbon Dioxide 23 Anion Gap 17 BUN 43 H D Creatinine 1.41 H Estim Creat Clear Calc 43.8 Estimated GFR 49 Random Glucose 97 Calcium 9.3 Total Bilirubin 0.4 Direct Bilirubin 0.3 AST 22 ALT 25 Alkaline Phosphatase 66 Total Protein 7.4 Albumin 3.8 COVID-19 ([facility]) COVID-19 Clin Com 12/08/21 12/09/21 12/09/21 23:15 05:44 05:44 WBC 6.4 RBC 3.26 L Hgb 9.6 L Hct 29.6 L MCV 90.8 MCH 29.4 MCHC 32.4 RDW 13.6 Plt Count 234 MPV 7.9 L Immature Gran % (Auto) 0.3 Neut % (Auto) 72.6 Lymph % (Auto) 13.8 L Barbour % (Auto) 10.5 Eos % (Auto) 2.5 Baso % (Auto) 0.3 Lymph # (Auto) 0.9 L Barbour # (Auto) 0.7 Eos # (Auto) 0.2 Baso # (Auto) 0.0 Abs Immat Gran (auto) 0.02 Absolute Neuts (auto) 4.6 Absolute Nucleated RBC 0.000 Nucleated RBC % (auto) 0.0 PT INR APTT Sodium 140 Potassium 5.1 Chloride 109 H Carbon Dioxide 25 Anion Gap 11 L BUN 32 H Creatinine 1.14 Estim Creat Clear Calc 54.2 Estimated GFR > 60 Random Glucose 96 Calcium 8.4 D Total Bilirubin Direct Bilirubin AST ALT Alkaline Phosphatase Total Protein Albumin COVID-19 ([facility]) Negative COVID-19 Clin Com See Note 12/09/21 12/09/21 05:44 12:11 WBC RBC Hgb Hct MCV MCH MCHC RDW Plt Count MPV Immature Gran % (Auto) Neut % (Auto) Lymph % (Auto) Barbour % (Auto) Eos % (Auto) Baso % (Auto) Lymph # (Auto) Barbour # (Auto) Eos # (Auto) Baso # (Auto) Abs Immat Gran (auto) Absolute Neuts (auto) Absolute Nucleated RBC Nucleated RBC % (auto) PT INR APTT Sodium 140 141 Potassium 5.2 H 4.6 Chloride 109 H 108 Carbon Dioxide 25 25 Anion Gap 11 L 13 BUN 32 H 24 H Creatinine 1.15 1.03 Estim Creat Clear Calc 53.7 60.0 Estimated GFR > 60 > 60 Random Glucose 97 102 Calcium 8.3 L 8.4 Total Bilirubin Direct Bilirubin AST ALT Alkaline Phosphatase Total Protein Albumin COVID-19 ([facility]) COVID-19 [facility] Discharge Plan Discharge Patient Disposition: Home, Self-Care Discharge Diagnosis: DVT, hemorrhagic cystitis, MARYSE Referrals: Cade Enriquez MD [Primary Care Provider] - Ruperto Trevino MD [Physician] - 1 Week Edd Napier MD [Physician] - 1 Week Discharge Medications: New Eliquis 2.5 mg tablet 2.5 mg PO BID Qty: 74 0RF Rx Instructions: 2 tabs PO bid x 7 days, then 1 tab PO bid Continued ascorbic acid (vitamin C) [Vitamin C] 500 mg Tablet 500 mg PO DAILY cholecalciferol (vitamin D3) 10 mcg (400 unit) tablet 10 mcg PO DAILY multivitamin Tablet 1 tab PO DAILY amlodipine-benazepril 5-40 mg capsule 1 cap PO DAILY 90 Days Qty: 90 3RF vitamin E (dl, acetate) 450 mg (1,000 unit) capsule 450 mg PO DAILY Qty: 90 1RF Discontinued tranexamic acid 650 mg tablet 650 mg PO DAILY 28 Days Qty: 28 1RF Discharge Orders: Discharge Order (Routine); Ordered 12/09/21 Ordered By: Reid Marin Diet: Advance to usual diet Activity on Discharge: As tolerated Stand Alone Forms: Patient Portal Discharge page Care Plan Goals: treatment of DVT while avoiding complications of bleeding Health Concerns: DVT, hemorrhagic cystitis, MARYSE Plan of Treatment: IVC filter placed 12/09/21; follow up with Dr Edd Napier [place] [facility] [place] 2 weeks Stop tranexamic acid Start anticoagulation with apixaban [Eliquis] 2.5 mg tabs. Take 2 tabs twice daily for 7 days, then 1 tab twice daily. total duration of treatment 3 months. If you develop anything more than pink-tinged urine, please STOP the apixaban and call Dr Ruperto Trevino from [facility]. Regardless, please schedule follow-up with Dr Trevino in 2 weeks. Please see your primary care doctor in 1 week. MARYSE resolved after IV fluids Assessment: See Discharge Summary
--- NOTE | 2021-12-09 14:35 | MHC.CM.PN ---
PT LIVES WITH HIS AND IS INDEPENDENT WITH CARE PT HAS NO SERVICES/DME PCP: MELIA BRITO VAX: PFIZER X3 AND mRNA X 1 IMM DELIVERED, COPY SENT TO [facility] CM MET WITH PT WHO IS BEING DISCHARGED WITH [facility] PER [employer], ELIQUIS IS A TIER TWO MED THIS WAS EXPLAINED AND A 30 TRIAL COUPON WAS PROVIDED PT WILL DC HOME WITH NO SERVICES
== END 2021-12-09 15:10 | disposition home or self-care (01) | DRG 300 ==
LOC: HO.ED 20:18 → HO.EDOVER 20:43 → HO.IMC 12-09 14:21 → HO.EDOVER 12-09 14:24
PROVIDERS: Nurse Practitioner Family; Surgery Vascular Surgery; Admitting Provider Internal Medicine; Emergency Provider Internal Medicine; PCP Internal Medicine; Visit Provider Family Medicine
PROC: 06H03DZ Insertion of Intraluminal Device into Inferior Vena Cava, Percutaneous Approach (ICD-10-PCS; principal; 2021-12-09 08:00)
DX: I82.412 Acute embolism and thrombosis of left femoral vein (principal); N17.9 Acute kidney failure, unspecified; I12.9 Hypertensive chronic kidney disease with stage 1 through stage 4 chronic kidney disease, or unspecified chronic kidney disease; Z20.822 Contact with and (suspected) exposure to COVID-19; Z92.3 Personal history of irradiation; Z85.46 Personal history of malignant neoplasm of prostate; Z79.01 Long term (current) use of anticoagulants; Z79.899 Other long term (current) drug therapy
CPT/HCPCS: 36415; 37191; 71275; 76937; 80048; 80076; 85025; 85610; 85730; 87635; 93971; 96372; 99152; 99219; 99284; 99285; C1769; C1880; C1894; J1650; Q9967

== ENCOUNTER → 2021-12-23 09:40 | Outpatient (BNVA) | payer MEDICARE, SELFPAY | PROVIDERS: PCP Internal Medicine; Visit Provider Surgery Vascular Surgery | DX: I82.409 Acute embolism and thrombosis of unspecified deep veins of unspecified lower extremity (principal) | CPT/HCPCS: 99212 ==

== ENCOUNTER 2022-02-28 08:28 | Outpatient (REF) | payer MEDICARE, SELFPAY ==
[2022-02-28 08:44] LABS: MANUAL DIFF FLAG NO
[2022-02-28 09:02] LABS: Basophils Percent Auto 0.1 % (0-2); Eosinophils Absolute Auto 0.1 X10*3/uL (0.0-0.4); Eosinophils Percent Auto 0.7 % (0-4); Hematocrit 41.3 % (42.0-52.0); Hemoglobin 13.6 g/dl (14.0-18.0); Imm Gran Abs Auto 0.02 X10*3/uL (0.00-0.03); Imm Gran Pct Auto 0.3 % (0.0-0.4); Lymphocytes Absolute Auto 1.2 X10*3/uL (1.2-4.9); Lymphocytes Percent Auto 16.2 % (20-40); Mean Corpuscular HGB Conc 32.9 g/dl (31.0-36.0); Mean Corpuscular Hemoglobin 30.1 pg (27.0-33.0); Mean Corpuscular Volume 91.4 fL (80.0-98.0); Monocytes Absolute Auto 0.8 X10*3/uL (0.1-1.2); Monocytes Percent Auto 10.6 % (2-11); Neutrophils Absolute Auto 5.5 x10*3/uL (2.0-8.3); Neutrophils Percent Auto 72.1 % (45-73); Platelet Count 202 X10*3/uL (160-400); Red Blood Count 4.52 X10*6/uL (4.60-5.80); Red Cell Distribution Width 15.1 % (11.0-16.0); White Blood Count 7.6 X10*3/uL (4.8-10.8)
[2022-02-28 09:39] LABS: Alanine Aminotransferase 14 U/L (0-40); Albumin Level 3.8 g/dL (3.5-5.0); Alkaline Phosphatase 57 U/L (39-117); Anion Gap 14 (12-20); Aspartate Amino Transferase 14 U/L (5-37); Bilirubin Total 0.7 mg/dL (0.0-1.0); Blood Urea Nitrogen 24 mg/dL (9-16); Calcium 9.2 mg/dL (8.4-10.2); Carbon Dioxide 25 mmol/L (22-29); Chloride 107 mmol/L (96-108); Cholesterol 191 mg/dL; Estimated Glomerular Filt Rate 49; Glucose Fasting 115 mg/dL (60-99); HDL Cholesterol 69 mg/dL; LDL Cholesterol Calculated 107 mg/dl; Potassium 4.9 mmol/L (3.3-5.1); Sodium 141 mmol/L (135-145); Triglycerides 75 mg/dL; Vitamin D 25-OH Total 52.1 ng/mL (>30)
[2022-02-28 09:53] LABS: Prostate Specific Antigen < 0.10 ng/mL (<0.05-4.0)
[2022-02-28 10:29] LABS: Appearance Urine Cloudy; Color Urine Yellow; Glucose Urine UA Negative (Negative); Leukocyte Esterase Urine Large (3+) (Negative); Nitrite Urine Negative (Negative); UMIC TRIGGER UACC YES; Urine Blood Large (3+) (Negative); Urine Ketones Negative (Negative); Urine Protein 30 (1+) mg/dL (Neg-Trace)
[2022-02-28 10:53] LABS: Bacteria Urine Trace (None Seen); RBC Urine >20 /HPF (0-2); Squamous Epithelial Cell Urine 0-2 /HPF (0-2); UACC Culture Trigger YES; WBC Urine >50 /HPF (0-5)
[2022-02-28 10:54] LABS: Hyaline Casts Urine 0-2 /LPF (0-2)
== END 2022-02-28 08:29 | disposition home or self-care (01) ==
LOC: HO.LAB 08:28
PROVIDERS: Urology; PCP Internal Medicine; Visit Provider Internal Medicine
DX: E78.00 Pure hypercholesterolemia, unspecified (principal); I10 Essential (primary) hypertension; E55.9 Vitamin D deficiency, unspecified; C61 Malignant neoplasm of prostate; C67.9 Malignant neoplasm of bladder, unspecified; N30.91 Cystitis, unspecified with hematuria; Z12.5 Encounter for screening for malignant neoplasm of prostate
CPT/HCPCS: 36415; 80053; 80061; 81001; 81003; 82306; 84153; 84443; 85025; 87086

== ENCOUNTER 2022-05-02 15:04 | Outpatient (REF) | payer MEDICARE, SELFPAY ==
[2022-05-02 17:27] LABS: Prostate Specific Antigen < 0.10 ng/mL (<0.05-4.0)
== END 2022-05-02 15:05 | disposition home or self-care (01) ==
LOC: HO.LAB 15:04
PROVIDERS: PCP Internal Medicine; Visit Provider Urology
DX: Z12.5 Encounter for screening for malignant neoplasm of prostate (principal); C61 Malignant neoplasm of prostate
CPT/HCPCS: 36415; 84153

== ENCOUNTER 2022-05-03 13:23 | Outpatient (REF) | payer MEDICARE, SELFPAY ==
--- NOTE | ~2022-05-03 | US_ITS ---
EXAMINATION: US VENOUS ULTRASOUND WITH DOPPLER LOWER EXTREMITY, LEFT CLINICAL INFORMATION: Acute embolus, COMPARISON: Prior ultrasound November 2021 TECHNIQUE: Ultrasound of the deep veins is performed from the hip to the calf with compression sonography and color and pulse Doppler assessment. Spectral analysis with color-flow imaging is performed. FINDINGS: Redemonstration of partially occlusive embolus in the left lower extremity involving the common femoral and femoral veins proximally. More distally the popliteal vein, posterior tibial vein, peroneal veins are patent. No evidence of Abdi's cyst. US/US venous duplex LE LT IMPRESSION: Positive left lower extremity DVT. Redemonstration of partially occlusive thrombus in the common femoral and femoral veins. Patient is blood thinners. Referring provider Loulou TAY notified.
== END 2022-05-03 13:24 | disposition home or self-care (01) ==
LOC: HO.US 13:23
PROVIDERS: Visit Provider Internal Medicine
DX: I82.412 Acute embolism and thrombosis of left femoral vein (principal)
CPT/HCPCS: 93971

== ENCOUNTER → 2022-05-06 08:52 | Outpatient (BNVA) | payer MEDICARE, SELFPAY | PROVIDERS: PCP Internal Medicine; Visit Provider Urology | DX: N30.91 Cystitis, unspecified with hematuria (principal); C61 Malignant neoplasm of prostate | CPT/HCPCS: 51798; 99212 ==

== ENCOUNTER → 2022-08-02 15:07 | Outpatient (BNVA) | payer MEDICARE, SELFPAY | PROVIDERS: PCP Internal Medicine; Visit Provider Surgery Vascular Surgery | DX: I82.409 Acute embolism and thrombosis of unspecified deep veins of unspecified lower extremity (principal) | CPT/HCPCS: 99212 ==

== ENCOUNTER 2022-08-10 07:31 | Day surgery (SDC) | payer MEDICARE, SELFPAY ==
[2022-08-10 08:18] LABS: MANUAL DIFF FLAG NO
[2022-08-10 08:23] LABS: Basophils Percent Auto 0.2 % (0-2); Eosinophils Absolute Auto 0.2 X10*3/uL (0.0-0.4); Eosinophils Percent Auto 2.6 % (0-4); Hematocrit 42.9 % (42.0-52.0); Hemoglobin 13.6 g/dl (14.0-18.0); Imm Gran Abs Auto 0.02 X10*3/uL (0.00-0.03); Imm Gran Pct Auto 0.4 % (0.0-0.4); Lymphocytes Absolute Auto 1.4 X10*3/uL (1.2-4.9); Lymphocytes Percent Auto 25.3 % (20-40); Mean Corpuscular HGB Conc 31.7 g/dl (31.0-36.0); Mean Corpuscular Hemoglobin 30.4 pg (27.0-33.0); Mean Corpuscular Volume 95.8 fL (80.0-98.0); Mean Platelet Volume 8.5 fL (9.4-12.4); Monocytes Absolute Auto 0.5 X10*3/uL (0.1-1.2); Monocytes Percent Auto 9.5 % (2-11); Neutrophils Absolute Auto 3.5 x10*3/uL (2.0-8.3); Platelet Count 179 X10*3/uL (160-400); Red Blood Count 4.48 X10*6/uL (4.60-5.80); Red Cell Distribution Width 14.2 % (11.0-16.0); White Blood Count 5.7 X10*3/uL (4.8-10.8)
[2022-08-10 08:28] VITALS: BMI 26.7
[2022-08-10 08:39] LABS: Blood Urea Nitrogen 37 mg/dL (9-16); Estimated Glomerular Filt Rate 51
[2022-08-10 10:35] VITALS: BP 128/63; PULSE 57; RESP 18; TEMP 36.1; O2SAT 97
--- NOTE | 2022-08-10 10:46 | W.PM.OPN ---
Operative Note Operative Note Date of Service: 08/10/22 Narrative: Angiogram report from [facility] Preoperative diagnosis: DVT Postoperative diagnosis: Same Procedure: 1. Ultrasound-guided right internal jugular vein 2. Vena cavogram 3. IVC filter removal 4. Follow-up cavogram Surgeon:Edd Napier M.D., FACS, RPVI Fiscal Specialist:None Anesthesia: Local with moderate conscious sedation. Total intraservice moderate sedation time was 38 minutes. I monitored the patient's level of consciousness and physiologic status continuously throughout the procedure. Specimens:none Drains:none Estimated blood loss: Less than 10 ml Implant: None Indications: 77-year-old gentleman with with prior history of DVT and hemorrhagic cystitis. The hemorrhagic cystitis has resolved and he was able to tolerate anticoagulation. He now presents for IVC filter removal. The patient has signed the informed consent after reviewing risks, complications, benefits, and alternatives previously discussed with the patient. The patient was given the opportunity to ask any additional questions or voice any concerns. All questions were answered to the patient's satisfaction. Procedure in detail: Patient was brought to the angiography suite prior to which a time-out was called for patient identification and site verification. Under ultrasound guidance the right internal jugular vein was accessed with a micro puncture needle we then advanced a precision wire and subsequent 5 Australian sheath. Sheath was placed at the access site. We then advanced a Bentson wire down through into the inferior vena cava. We brought in a [place] catheter to help traverse this area in get down to the vena cava. We removed the wire. And through the glide catheter a vena cavogram was then performed to assess the filter for capture and thrombus. The catheter was then exchanged out for a filter removal system. Prior to this we had to dilate up the tract with a 10 Australian sheath. The system was brought down position just above the filter tip. The snare was advanced and deployed just above the central trip of the IVC filter. The filter was engaged in confirmed in multiple projections. The filter was then pulled through the retrieval sheath under fluoroscopic guidance. Once this was complete we did a completion vena cavogram through the sheath. This was to assess the IVC integrity after the filter retrieval. The images were reviewed. The catheter wire and right in Camacho jugular sheath were removed and hemostasis was achieved with direct compression for 10 minutes. No immediate complications occurred and the patient was discharged from the angiography suite in satisfactory condition with stable vitals. Interpretation of films: 1. Ultrasound demonstrates appropriate jugular puncture. Image of which was saved. 2. Initial vena cavogram demonstrated no significant thrombus within the infrarenal IVC filter. 3. Post removal of cavogram shows no contrast extravasation or leak. The IVC is intact Conclusion: 1. Uneventful retrieval of an infrarenal IVC filter 2. Anticoagulation status: Resume Eliquis tonight This note is constructed using voice recognition software. While every effort has been made to ensure accuracy, territory account representative errors may have been included. Thank you for allowing me to participate in the care of your patient. Yours sincerely, Edd Napier MD, FACS, R.P.V.I.
[2022-08-10 10:50] VITALS: BP 122/57; PULSE 59; RESP 16; O2SAT 99
[2022-08-10 11:05] VITALS: BP 129/64; PULSE 59; RESP 16; O2SAT 99
[2022-08-10 11:20] VITALS: BP 122/67; PULSE 63; RESP 18; TEMP 36.1; O2SAT 98
== END 2022-08-10 11:31 | disposition home or self-care (01) ==
PROVIDERS: PCP Internal Medicine; Visit Provider Surgery Vascular Surgery
DX: Z45.89 Encounter for adjustment and management of other implanted devices (principal); Z86.718 Personal history of other venous thrombosis and embolism; Z87.448 Personal history of other diseases of urinary system; I73.9 Peripheral vascular disease, unspecified; Z79.01 Long term (current) use of anticoagulants; I10 Essential (primary) hypertension; E78.00 Pure hypercholesterolemia, unspecified; Z79.899 Other long term (current) drug therapy
CPT/HCPCS: 36415; 37193; 82565; 84520; 85025; 99152; 99153; C1769; C1773; C1887; C1894; J2250; J3010; Q9967

== ENCOUNTER 2022-09-02 08:12 | Outpatient (REF) | payer MEDICARE, SELFPAY ==
[2022-09-02 08:28] LABS: MANUAL DIFF FLAG NO
[2022-09-02 08:42] LABS: Basophils Percent Auto 0.4 % (0-2); Eosinophils Absolute Auto 0.2 X10*3/uL (0.0-0.4); Eosinophils Percent Auto 3.8 % (0-4); Hemoglobin 12.9 g/dl (14.0-18.0); Imm Gran Abs Auto 0.02 X10*3/uL (0.00-0.03); Imm Gran Pct Auto 0.4 % (0.0-0.4); Lymphocytes Absolute Auto 1.3 X10*3/uL (1.2-4.9); Mean Corpuscular HGB Conc 32.3 g/dl (31.0-36.0); Mean Corpuscular Hemoglobin 30.9 pg (27.0-33.0); Mean Corpuscular Volume 95.9 fL (80.0-98.0); Mean Platelet Volume 8.2 fL (9.4-12.4); Monocytes Absolute Auto 0.6 X10*3/uL (0.1-1.2); Monocytes Percent Auto 11.5 % (2-11); Neutrophils Absolute Auto 2.7 x10*3/uL (2.0-8.3); Neutrophils Percent Auto 56.9 % (45-73); Platelet Count 217 X10*3/uL (160-400); Red Blood Count 4.17 X10*6/uL (4.60-5.80); Red Cell Distribution Width 14.8 % (11.0-16.0); White Blood Count 4.8 X10*3/uL (4.8-10.8)
[2022-09-02 09:06] LABS: Estimated Average Glucose 103 mg/dL; Hemoglobin A1c % 5.2 %
[2022-09-02 09:49] LABS: Alanine Aminotransferase 13 U/L (0-40); Albumin Level 3.7 g/dL (3.5-5.0); Alkaline Phosphatase 59 U/L (39-117); Anion Gap 9 (12-20); Aspartate Amino Transferase 15 U/L (5-37); Bilirubin Total 0.7 mg/dL (0.0-1.0); Blood Urea Nitrogen 35 mg/dL (9-16); Calcium 9.4 mg/dL (8.4-10.2); Carbon Dioxide 27 mmol/L (22-29); Chloride 112 mmol/L (96-108); Cholesterol 179 mg/dL; Estimated Glomerular Filt Rate 51; Glucose Fasting 103 mg/dL (60-99); HDL Cholesterol 71 mg/dL; LDL Cholesterol Calculated 101 mg/dl; Potassium 5.1 mmol/L (3.3-5.1); Sodium 143 mmol/L (135-145); Total Protein 6.5 g/dL (6.5-8.0); Triglycerides 35 mg/dL
[2022-09-02 10:06] LABS: TSH reflex Free T4 0.67 uIU/mL (0.32-4.0); Vitamin D 25-OH Total 65.1 ng/mL (>30)
[2022-09-02 10:07] LABS: Appearance Urine Turbid; Color Urine Yellow; Glucose Urine UA Negative (Negative); Leukocyte Esterase Urine Large (3+) (Negative); Nitrite Urine Negative (Negative); PH 5.5 (5.0-9.0); UMIC TRIGGER UACC YES; Urine Blood Moderate (2+) (Negative); Urine Ketones Negative (Negative); Urine Protein 30 (1+) mg/dL (Neg-Trace)
[2022-09-02 10:32] LABS: Squamous Epithelial Cell Urine 0-2 /HPF (0-2); UACC Culture Trigger YES; WBC Urine >50 /HPF (0-5)
[2022-09-02 10:33] LABS: Bacteria Urine Trace (None Seen); Hyaline Casts Urine 0-2 /LPF (0-2)
== END 2022-09-02 08:13 | disposition home or self-care (01) ==
LOC: HO.LAB 08:12
PROVIDERS: PCP Internal Medicine; Visit Provider Internal Medicine
DX: E11.9 Type 2 diabetes mellitus without complications (principal); E78.00 Pure hypercholesterolemia, unspecified; E55.9 Vitamin D deficiency, unspecified; I10 Essential (primary) hypertension; R30.0 Dysuria
CPT/HCPCS: 36415; 80053; 80061; 81001; 81003; 82306; 83036; 84443; 85025; 87086; 87088; 87186

== ENCOUNTER 2022-09-06 13:39 | Outpatient (AMB) | payer MEDICARE, SELFPAY ==
--- NOTE | 2022-09-06 13:49 | MHC.PC.OV ---
Vital Signs 09/06/22 13:51 Height 5 ft 9 in Weight 182 lb 4 oz BMI 26.9 BP 132/88 Blood Pressure Location Rt brachial Position Sitting Pulse 66 Pulse Source Pulse Oximeter Pulse Oximetry (%) 98 Oxygen Delivery Method Room Air Intake Visit Reasons: 6mth f/u Intake Note: Patient is here for a six months follow up. 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 by: Self / Same As Patient Allergies No Known Allergies Allergy (Verified 12/23/22 09:39) Medication List - Last Reconciled 09/06/22 by Cade Enriquez MD amlodipine-benazepril 5-40 mg 1 cap PO DAILY 90 days apixaban (Eliquis) 2.5 mg PO BID 90 days ascorbic acid (vitamin C) (Vitamin C) 500 mg PO DAILY cholecalciferol (vitamin D3) 10 mcg PO DAILY multivitamin 1 tab PO DAILY vitamin E (dl, acetate) 450 mg PO DAILY Tobacco use date assessed: 09/06/22 Fall risk assessment: No Falls in past year HPI 6mth f/u HPI Details Patient comes in today for his follow up visit States that he feels okay He denies any headaches or dizziness Denies any chest pains, no SOB No nausea/vomiting, no abdominal pain No change in bowel habits noted Needs his Eliquis Rx refilled Had his follow up labs done a few days ago - to discuss his results [facility] Medical History Hypertension Diverticulosis Overweight (BMI 25.0-29.9) History of prostate cancer Renal cyst Vitamin D deficiency Osteoarthritis of left knee Impaired fasting glucose Pure hypercholesterolemia Benign essential hypertension Radiation cystitis Surgical History History of ankle surgery History of colonoscopy History of meniscectomy of left knee (~06/05/12) Hx of prostatectomy Hx of umbilical hernia repair Family History Father Cancer Mother Colon cancer Social History (Updated 12/23/22 @ 09:40 by JAIMEE Hankins) Housing: House Alcohol intake: current Alcohol intake frequency: 0-2 drinks per day Alcohol type: beer 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 1. Little interest or pleasure in doing things: not at all 2. Feeling down, depressed, or hopeless: not at all 3. Trouble falling or staying asleep, or sleeping too much: not at all 4. Feeling tired or having little energy: not at all 5. Poor appetite or overeating: not at all 6. Feeling bad about yourself - or that you are a failure or have let yourself or your family down: not at all 7. Trouble concentrating on things, such as reading the newspaper or watching television: not at all 8. Moving or speaking so slowly that other people could have noticed. Or the opposite - being so fidgety or restless that you have been moving around a lot more than usual: not at all 9. Thoughts that you would be better off or of hurting yourself in some way: not at all Total score: 0 Depression Screening Interpretation: Negative [id number] - PHQ-9 Billing: Yes Source: Developed by Drs. Jean Resendez, Larisa Alonzo, Jaspal Boyce and colleagues, with an educational cheryl from [employer]. Thrive Questionnaire Date Thrive assessed: 09/06/22 I am a: Patient What is your living situation today?: I have a steady place to live Within the past 12 months, did the food you bought not last and you didn't have the money to get more?: Never true Within the past 12 months, did you worry whether your food would run out before you got money to buy more?: Never true Do you have trouble paying for medicines?: No Do you have trouble getting transportation to medical appointments?: No Do you have trouble paying your heating and electricity bill?: No Do you have trouble taking care of your child, family member or friend?: No Do you have trouble with day-to-day activities such as bathing, preparing meals, shopping, managing finances, etc.?: No Are you currently unemployed and looking for a job?: No Are you interested in more education?: No Currently or been in a relationship where the following occur: no concerns reported AUDIT C Alcohol Use Questionnaire (AUDIT-C) 1. How often do you have a drink containing alcohol?: 4 or more times a week 2. How many drinks containing alcohol do you have on a typical day when you are drinking?: 1 or 2 3. How often do you have six or more drinks on one occasion?: Never Total Score: 4 Score Reviewed/Action Taken: Yes ROSAMARIA-7 AMB Questionnaire ROSAMARIA-7 Date ROSAMARIA - 7 assessed: 09/06/22 Feeling nervous, anxious, or on edge: 0 = Not at all Not being able to stop or control worryin = Not at all Worrying too much about different things: 0 = Not at all Trouble relaxin = Not at all Being so restless that it is hard to sit still: 0 = Not at all Becoming easily annoyed or irritable: 0 = Not at all Feeling afraid as if something awful might happen: 0 = Not at all Total ROSAMARIA-7 score (0-4 normal; 5-9 mild; 10-14 moderate; 15-21 severe): 0 Source: Developed by Drs. Jean Resendez, Larisa Alonzo, Jaspal Boyce and colleagues, with an educational cheryl from [employer]. Review of Systems Const Denies chills, Denies fatigue, Denies fever(s) and Denies headache(s) ENT Denies dysphagia, Denies dizziness, Denies otalgia, Denies headache(s), Denies odynophagia and Denies sore throat Card Denies chest pain, Denies palpitations and Denies dyspnea Resp Denies cough, Denies dyspnea and Denies wheezing GI Denies abdominal pain, Denies constipation, Denies dysphagia, Denies heartburn, Denies diarrhea, Denies nausea, Denies odynophagia and Denies vomiting Reports hematuria (tinge, at times), Denies difficulty urinating, Denies dysuria, Denies nocturia and Denies urinary frequency Musc Denies back pain Skin/Breast Denies lesions, Denies rash and Denies unusual bruising Neuro Denies dizziness and Denies headache(s) Endo Denies fatigue and Denies palpitations Aller/Immun Denies wheezing Physical exam (Primary Care) Vital Signs: Last Vital Signs Pulse 66 09/06/22 13:51 BP 132/88 09/06/22 13:51 Pulse Ox 98 09/06/22 13:51 Oxygen Delivery Method Room Air 09/06/22 13:51 BMI result Body Mass Index 26.9 Tobacco/Smoking Status: Tobacco use Status Tobacco use date assessed 09/06/22 09/06/22 13:54 Patient Tobacco Use Status Never used Tobacco 09/06/22 13:54 PHQ-9: PHQ-9 Score PHQ-9: Total score 0 09/06/22 14:43 Depression Screening Interpretation: Negative Thrive Assessment: Date of Thrive Assessment Date Thrive assessed 09/06/22 09/06/22 13:54 Currently or been in a relationship where the following occur: no concerns reported Const General: no acute distress and alert HENMT Ears: TM's normal bilaterally and EAC's normal Throat: Yes posterior oropharynx normal and Yes tonsils normal (no TP congestion) Neck Neck: Yes no lymphadenopathy and Yes supple Thyroid: Thyroid normal Resp Auscultation: clear to auscultation bilaterally, no rales and no wheezes Cardio Rate: regular rate Rhythm: regular rhythm Heart sounds: no murmurs GI Palpation (GI): Soft to palpation and nontender Auscultation: normal bowel sounds Extrem General: Yes no clubbing, cyanosis or edema Results Reviewed Results Reviewed: Laboratory Tests 09/02/22 09/02/22 09/02/22 08:20 08:23 08:23 WBC 4.8 Hgb 12.9 L Hct 40.0 L Plt Count 217 Sodium 143 Potassium 5.1 Creatinine 1.36 Estimated GFR 51 Fasting Glucose 103 H Hemoglobin A1c % Calcium 9.4 AST 15 ALT 13 Triglycerides 35 Cholesterol 179 LDL Cholesterol, Calc 101 HDL Cholesterol 71 25-OH Vitamin D Total 65.1 TSH 0.67 Ur Specific [place] 1.020 Urine Protein 30 (1+) H Urine Glucose (UA) Negative Urine Blood Moderate (2+) H 09/02/22 08:23 WBC Hgb Hct Plt Count Sodium Potassium Creatinine Estimated GFR Fasting Glucose Hemoglobin A1c % 5.2 Calcium AST ALT Triglycerides Cholesterol LDL Cholesterol, Calc HDL Cholesterol 25-OH Vitamin D Total TSH Ur Specific [place] Urine Protein Urine Glucose (UA) Urine Blood Assessment and Plan Assessment & Plan (1) Deep vein thrombosis (DVT) of left lower extremity: Code(s): I82.402 - Acute embolism and thrombosis of unspecified deep veins of left lower extremity Qualifiers: Affected thrombotic vein of extremity: femoral Chronicity: acute Qualified Code(s): I82.412 - Acute embolism and thrombosis of left femoral vein Plan: S/P IVC filter placement; filter was removed last month Continue Apixaban 2.5 mg BID - Rx refilled Venous doppler in April 2022 still shows (+) partially occlusive embolus in the left lower extremity involving the common femoral and femoral veins proximally Will repeat venous doppler of the left lower extremity sometime in the next 6 months for follow up and to assess resolution of his DVT (2) Radiation cystitis: Code(s): N30.40 - Irradiation cystitis without hematuria Plan: Cystoscopy done last year confirmed findings of radiation cystitis, which is most likely the source of his recurrent hematuria Patient underwent hyperbaric oxygen chamber Tx last year and felt that this helped with his hemorrhagic cystitis Follow up with urology as scheduled (3) Benign essential hypertension: Code(s): I10 - Essential (primary) hypertension Plan: Reinforced low sodium diet - goal is systolic BP of at least 140 to 150 mm Continue Amlodipine-Benazepril 5-40 mg QD (4) Pure hypercholesterolemia: Code(s): E78.00 - Pure hypercholesterolemia, unspecified Plan: Results of his labs done a few months ago reviewed and discussed with patient Reinforced low cholesterol diet Will recheck his labs and fasting lipids in 6 months for follow up (5) Dupuytren's contracture of left hand: Code(s): M72.0 - Palmar fascial fibromatosis [Dupuytren] Plan: Will refer him to orthopedics for further evaluation and management (6) Impaired fasting glucose: Code(s): R73.01 - Impaired fasting glucose Plan: Reinforced low calorie diet/exercise as tolerated HgbA1c was normal at 5.2% on his labs done recently; FBS was again slightly elevated at 103 mg/dl on his recent labs (7) History of prostate cancer: Comment: S/P radiation Tx years ago Code(s): Z85.46 - Personal history of malignant neoplasm of prostate Plan: Follow up with urology as scheduled for continuing surveillance (8) Osteoarthritis of left knee: Comment: S/P partial medial meniscectomy and chondroplasty of the medial femoral condyle of the left knee by Dr. Russ back on 06/05/2012 Code(s): M17.12 - Unilateral primary osteoarthritis, left knee Qualifiers: Osteoarthritis type: primary Qualified Code(s): M17.12 - Unilateral primary osteoarthritis, left knee Plan: Continue Ibuprofen PRN for knee pain Follow up with orthopedics as scheduled or as needed (9) Vitamin D deficiency: Code(s): E55.9 - Vitamin D deficiency, unspecified Plan: Corrected - continue OTC Vitamin D 400 units QD Will continue to monitor his Vitamin D level regularly (10) Renal cyst: Comment: Repeat/follow up US of his right renal cyst (in the upper pole) done back in September 2017 showed a slight increase in the exophytic mass/cyst in the upper pole of the right kidney MRI done in March 2018 showed (+) multiple bilateral renal simple cysts, with an exophytic complex cystic mass at the upper pole of the right kidney corresponding to the US findings Follow up US done in August 2019 showed no change in the complex cyst at the upper pole of the right kidney - plan to repeat US again in 1 year for follow up Code(s): N28.1 - Cyst of kidney, acquired Plan: Will continue to monitor and observe for now Follow up with urology as scheduled (11) Overweight (BMI 25.0-29.9): Code(s): E66.3 - Overweight Plan: Reinforced diet/exercise as tolerated/lose weight Plan To return in 6 months for his next annual physical examination Orders: Orders Comprehensive [place]. Panel Fast 6 Months E78.00 - Pure hypercholesterolemia, unspecified, Z00.00 - Encounter for general adult medical examination without abnormal findings Lipid Panel 6 Months E78.00 - Pure hypercholesterolemia, unspecified, Z00.00 - Encounter for general adult medical examination without abnormal findings TSH reflex Free T4 6 Months E78.00 - Pure hypercholesterolemia, unspecified, Z00.00 - Encounter for general adult medical examination without abnormal findings UA CC w/rflx Micro + Cult 6 Months R30.0 - Dysuria, Z00.00 - Encounter for general adult medical examination without abnormal findings Vitamin B12 and Folate 6 Months E53.8 - Deficiency of other specified B group vitamins, Z00.00 - Encounter for general adult medical examination without abnormal findings Prostate Specific Antigen 6 Months N40.0 - Benign prostatic hyperplasia without lower urinary tract symptoms, Z00.00 - Encounter for general adult medical examination without abnormal findings Complete Blood Count Auto Diff 6 Months I10 - Essential (primary) hypertension, Z00.00 - Encounter for general adult medical examination without abnormal findings Vitamin D 25-OH Total 6 Months E55.9 - Vitamin D deficiency, unspecified, Z00.00 - Encounter for general adult medical examination without abnormal findings Hemoglobin A1c 6 Months Z00.00 - Encounter for general adult medical examination without abnormal findings, R73.01 - Impaired fasting glucose Referrals Orthopedics Referral M72.0 - Palmar fascial fibromatosis [Dupuytren] Medications: Refilled apixaban (Eliquis) 2.5 mg PO BID 180 tabs 1RF 90 days I82.409 - Acute embolism and thrombosis of unspecified deep veins of unspecified lower extremity Coding Level of Care Code Est Pt Level 4 (81514) Diagnoses Acute deep vein thrombosis (DVT) of femoral vein of left lower extremity I82.412 Affected thrombotic vein of extremity: femoral Chronicity: acute Radiation cystitis N30.40 Benign essential hypertension I10 Pure hypercholesterolemia E78.00 Dupuytren's contracture of left hand M72.0 Impaired fasting glucose R73.01 History of prostate cancer Z85.46 Primary osteoarthritis of left knee M17.12 Osteoarthritis type: primary Vitamin D deficiency E55.9 Renal cyst N28.1 Overweight (BMI 25.0-29.9) E66.3
[2022-09-06 13:51] VITALS: BP 132/88; PULSE 66; O2SAT 98; BMI 26.9
== END 2022-09-06 14:54 | disposition home or self-care (01) ==
LOC: HO.HMGH 13:39
PROVIDERS: PCP Internal Medicine; Visit Provider Internal Medicine
DX: I82.412 Acute embolism and thrombosis of left femoral vein (principal); N30.40 Irradiation cystitis without hematuria; I10 Essential (primary) hypertension; E78.00 Pure hypercholesterolemia, unspecified; M72.0 Palmar fascial fibromatosis [Dupuytren]; R73.01 Impaired fasting glucose; Z85.46 Personal history of malignant neoplasm of prostate; M17.12 Unilateral primary osteoarthritis, left knee; E55.9 Vitamin D deficiency, unspecified; N28.1 Cyst of kidney, acquired; E66.3 Overweight
CPT/HCPCS: 99214

== ENCOUNTER 2022-09-29 10:57 | Outpatient (REF) | payer MEDICARE, SELFPAY | END 2022-09-29 10:58 | disposition home or self-care (01) | LOC: HO.HOSX 10:57 | PROVIDERS: Visit Provider Physician Assistant | DX: Z13.89 Encounter for screening for other disorder (principal) ==

== ENCOUNTER 2022-10-20 08:41 | Outpatient (REF) | payer MEDICARE, SELFPAY | END 2022-10-20 08:42 | disposition home or self-care (01) | LOC: HO.LAB 08:41 | PROVIDERS: PCP Internal Medicine; Visit Provider Urology | DX: Z12.5 Encounter for screening for malignant neoplasm of prostate (principal); C61 Malignant neoplasm of prostate | CPT/HCPCS: 36415; 84153 ==

== ENCOUNTER 2022-10-24 06:54 | Outpatient (REF) | payer MEDICARE, SELFPAY ==
--- NOTE | ~2022-10-24 | XR_ITS ---
EXAMINATION: XR HAND, LEFT CLINICAL INFORMATION: Pain in left hand COMPARISON: None available. TECHNIQUE: PA, lateral, and oblique views of the left hand. There is a marker in place indicating the proximal interphalangeal joint of the small finger. FINDINGS: The bones and soft tissues are normal. No fracture. The proximal anterior phalangeal joint of the small finger is flexed, though otherwise in alignment. Alignment is anatomic. Joint spaces are maintained. No erosions. There is vascular calcification anterior to the wrist.. XR/XR hand LT min 3V IMPRESSION: Persistent flexion of the proximal interphalangeal joint of the small finger on all radiographs without acute underlying bony abnormality.
== END 2022-10-24 06:55 | disposition home or self-care (01) ==
LOC: HO.HOSX 06:54
PROVIDERS: Visit Provider Physician Assistant
DX: M72.0 Palmar fascial fibromatosis [Dupuytren] (principal); M79.642 Pain in left hand
CPT/HCPCS: 73130; 99202

== ENCOUNTER 2022-10-24 10:20 | Outpatient (AMB) | payer MEDICARE, SELFPAY ==
--- NOTE | 2022-10-24 10:37 | MHC.OFFVIS ---
Intake Vital Signs 10/24/22 10:38 Height 5 ft 9 in Weight 182 lb BMI 26.9 Intake Visit Reasons: New Pt - left pinky finger pain Intake Note: Charles 77 yr old right hand dominant male presents today for his left pinky finger. States he has deformity in his pinky for the last 2-3 yrs. No injury he can recall. Reports he has no pain, no discomfort, numbness or tingling. He is not able to fully extend it. Has hx of O.A. Allergies No Known Allergies Allergy (Verified 10/24/22 10:42) HPI New Pt - left pinky finger pain HPI Details 77-year-old right hand dominant male who presents to the office today for evaluation of left 5th finger deformity for about 3 years. He states he has no pain, discomfort, numbness or tingling in his finger and he is able to full extend his digit. He has not had any injury in the past. He has a history of OA. [facility] Medical History Benign essential hypertension Diverticulosis History of prostate cancer Hypertension Impaired fasting glucose Osteoarthritis of left knee Overweight (BMI 25.0-29.9) Pure hypercholesterolemia Radiation cystitis Renal cyst Vitamin D deficiency Surgical History History of ankle surgery History of colonoscopy History of meniscectomy of left knee (~06/05/12) Hx of prostatectomy Hx of umbilical hernia repair Family History Father Cancer Mother Colon cancer Social History (Updated 10/24/22 @ 10:42 by ANA Burns) Housing: House Alcohol intake: current Alcohol intake frequency: 0-2 drinks per day Alcohol type: beer 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 Cognitive needs: No Hearing needs: No Vision needs: No Review of Systems Const All systems reviewed & are unremarkable except as noted in HPI and below Physical Exam Vital Signs: BMI result Body Mass Index 26.9 Const General: cooperative, healthy appearing, comfortable, no acute distress, well developed and alert Orientation/consciousness: patient oriented x3 HEENT Head: Yes normal to inspection, Yes normocephalic and Yes atraumatic Eyes General: appearance normal, both eyes and all related structures Resp Effort & Inspection: normal respiratory effort and able to speak in complete sentences Cardio Rate: regular rate Peripheral pulses: Peripheral pulses 2+ throughout GI Palpation (GI): Soft to palpation Skin Lesions: no lesions Rashes: no rashes Neuro General: patient oriented x3 Extrem Other: Left small finger: With flexion contracture of about 30 degrees at the PIP joint. He has full sensation able to make a fist with the remaining digits. NVI. Results Reviewed Results Reviewed: Xrays were obtained in the office today and personally reviewed by me of the left hand negative for acute fracture or dislocation Assessment & Plan Assessment & Plan (1) Dupuytren's contracture of left hand: Code(s): M72.0 - Palmar fascial fibromatosis [Dupuytren] Plan I did explain the extent of this condition with the patient and explained to him that this is something that can get worse and is often found with overuse of the hand or can mostly be a hereditary condition. Because this does not limit his activities, we are going to avoid any type surgical intervention. If symptoms persist or worsens, patient will contact the office to meet Dr. Collazo to discuss surgical interventions, otherwise follow-up as needed. Orders: Orders XR hand LT min 3V Today M79.642 - Pain in left hand Patient Instructions: Scribed for Juna Beverly PA-C, by Claudy Corrales medical housekeeper, on 10/24/2022 at 11:00 AM EST. IJuan PA-C, have personally reviewed and agree with the information entered by the scribe. Coding Level of Care Code New Pt Level 3 (46881) Diagnoses Dupuytren's contracture of left hand M72.0
[2022-10-24 10:38] VITALS: BMI 26.9
== END 2022-10-24 11:17 | disposition home or self-care (01) ==
PROVIDERS: PCP Internal Medicine; Visit Provider Physician Assistant
DX: M72.0 Palmar fascial fibromatosis [Dupuytren] (principal)
CPT/HCPCS: 99203

== ENCOUNTER 2022-11-01 08:37 | Outpatient (AMB) | payer MEDICARE, SELFPAY ==
--- NOTE | 2022-11-01 08:37 | MHC.OFFVIS ---
Intake Intake Visit Reasons: 6M PSA(set) Intake Note: Patient is present for Telephone PSA Urology Med: None Antibiotic Allergy: None Blood Thinner: Eliquis Allergies No Known Allergies Allergy (Verified 11/01/22 08:38) Medication List - Last Reconciled 11/01/22 by Ruperto Trevino MD amlodipine-benazepril 5-40 mg 1 cap PO DAILY 90 days apixaban (Eliquis) 2.5 mg PO BID 90 days ascorbic acid (vitamin C) (Vitamin C) 500 mg PO DAILY cholecalciferol (vitamin D3) 10 mcg PO DAILY multivitamin 1 tab PO DAILY vitamin E (dl, acetate) 450 mg PO DAILY HPI HPI Comments History of Present Illness Details Charles is a very pleasant male. He is a patient of Dr. Enriquez. He is seen for the following urologic conditions - prostate cancer - radiation cystitis - renal cyst Telemedicine Evaluation 15 min Consultation [employer] [place] Video attempted Still has some urine leakage - but improving No further blood in urine Healed after round of hyperbaric oxygen Had blood clot on blood thinner Remains on vitamin E Continence issues after large catheter PSA controlled 6 month follow-up Prostate cancer 2004 - radical prostatectomy [facility]. Postprocedure radiation required 2009 Laboratories - 10/04 PSA < 0.1, <12/05 <0.1, 06/08 <0.1, 05/09 <0.1, 11/06 <0.1 Check PSA every 6 months Renal cyst Followed by MRI. Complex cyst right side. No enhancement. Yearly ultrasound. Imaging - 09/03 ULTRASOUND RIGHT COMPLEX CYST 7 X 8 CM, left 2 simple cysts Radiation cystitis Diagnosis cystoscopy June 2020 Hemorrhagic cystitis responded to tranexamic acid with vitamin a Continue with vitamin-E Cytology 06/07 NAD Cystoscopy 08/06 hemorrhagic cystitis and radiation cystitis lower half bladder 01/06 episode of hematuria retention and Morales catheter placed 01/06 underwent hyperbaric oxygen [facility] Medical History Benign essential hypertension Diverticulosis History of prostate cancer Hypertension Impaired fasting glucose Osteoarthritis of left knee Overweight (BMI 25.0-29.9) Pure hypercholesterolemia Radiation cystitis Renal cyst Vitamin D deficiency Surgical History History of ankle surgery History of colonoscopy History of meniscectomy of left knee (~06/05/12) Hx of prostatectomy Hx of umbilical hernia repair Family History Father Cancer Mother Colon cancer Social History Housing: House Alcohol intake: current Alcohol intake frequency: 0-2 drinks per day Alcohol type: beer 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 Cognitive needs: No Hearing needs: No Vision needs: No Review of Systems Const All systems reviewed & are unremarkable except as noted in HPI and below Reports no additional complaints Resp Reports no additional complaints GI Reports no additional complaints Reports as per HPI Musc Reports no additional complaints Physical Exam Telemedicine evaluation Appropriate responses Regular breathing rate and rhythm HEENT Head: Yes normal to inspection Ears: hearing grossly normal bilaterally Eyes General: appearance normal, both eyes and all related structures Neck Neck: Yes normal visual inspection Chest Chest palpation & inspection: normal inspection of the chest Resp Effort & Inspection: normal respiratory effort and able to speak in complete sentences Assessment & Plan Assessment & Plan (1) Prostate cancer: Comment: Radical prostatectomy 2003, external beam radiation 2009 Code(s): C61 - Malignant neoplasm of prostate (2) Urinary urgency: Code(s): R39.15 - Urgency of urination Plan 6 month follow-up PSA Orders: Orders Prostate Specific Antigen 6 Months C61 - Malignant neoplasm of prostate Patient Instructions: Imaging studies, laboratory and physical exam results were discussed and reviewed in detail. No major barriers to patient understanding were identified. An opportunity to ask questions regarding the treatment plan was provided. All questions were answered. The patient expressed understanding and agreement with the above treatment plan. The patient is aware they should contact our office by phone for worsening of their current condition or the appearance of new urologic symptoms. Compliance is encouraged with any medications and followup testing that is ordered. It is a privilege to participate in the urologic care of your patient. If you have any questions or concerns regarding treatment for the above conditions, or other urologic issues, please do not hesitate to contact me. The office telephone contact is [phone]. This note is constructed using voice recognition software. While every effort has been made to ensure accuracy knitting supervisor errors may have been included. Yours sincerely, Dr Ruperto Trevino MD, [facility] - Urology Providers of Expert, Compassionate Care for the Genitourinary System Telehealth Telehealth Location of provider rendering services: practice address Location of patient: address on file Patient Identification confirmed using: Name, : Yes Telehealth method: voice only Patient verbally consented to treatment: Yes Patient verbally consented to billing insurance company: Yes Patient informed of any privacy concerns related to visit: Yes Coding Level of Care Code Tele Est Pt Level 3 (37359) Diagnoses Prostate cancer C61 Urinary urgency R39.15
== END 2022-11-01 09:33 | disposition home or self-care (01) ==
LOC: HO.HUSH 08:37
PROVIDERS: PCP Internal Medicine; Visit Provider Urology
DX: R39.15 Urgency of urination (principal); Z85.46 Personal history of malignant neoplasm of prostate
CPT/HCPCS: G2252

== ENCOUNTER → 2022-11-01 08:37 | Outpatient (BNVA) | payer MEDICARE, SELFPAY | PROVIDERS: PCP Internal Medicine; Visit Provider Urology ==

== ENCOUNTER 2022-12-23 09:30 | Outpatient (AMB) | payer MEDICARE, SELFPAY ==
--- NOTE | 2022-12-23 09:33 | A.OFFVIS_ITS ---
Intake Vital Signs 12/23/22 09:37 Height 5 ft 9 in Weight 184 lb BMI 27.2 BP 162/71 H Blood Pressure Location Rt brachial Position Sitting Pulse 70 Intake Visit Reasons: RIH Intake Note: Patient here for [facility] X10 yrs. C/o pain when bending, coughing. Feels ready to have it treated. Hx of umbilical hernia over 20yrs ago. 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 He has had this approximately 10 years time. It is increasing in size, becoming more symptomatic. He wished to have it repaired. Patient has no other GI issues or complaints. He is fairly active. Does occasional golfing and gardening work with some heavy lifting. Chart was reviewed patient evaluated. Approximately 1 year ago, patient had a left lower extremity DVT and has been on Eliquis since then. He also had a temporary inferior vena cava filter placed which was removed. His Eliquis is tentatively to stop a few months time. [facility] Medical History Hypertension Diverticulosis Overweight (BMI 25.0-29.9) History of prostate cancer Renal cyst Vitamin D deficiency Osteoarthritis of left knee Impaired fasting glucose Pure hypercholesterolemia Benign essential hypertension Radiation cystitis Surgical History History of ankle surgery History of colonoscopy History of meniscectomy of left knee (~06/05/12) Hx of prostatectomy Hx of umbilical hernia repair Family History Father Cancer Mother Colon cancer Social History (Updated 12/23/22 @ 09:40 by JAIMEE Hankins) Housing: House Alcohol intake: current Alcohol intake frequency: 0-2 drinks per day Alcohol type: beer 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 Left groin negative. Genitalia within normal limits. Right groin moderately sized right inguinal hernia. Abdomen soft benign. Prostatectomy it scars well healed. Assessment & Plan Assessment & Plan (1) Inguinal hernia: Code(s): K40.90 - Unilateral inguinal hernia, without obstruction or gangrene, not specified as recurrent Plan Risks, benefits, alternatives of open right inguinal hernia repair with mesh reviewed the patient included but not limited to bleeding, infection, recurrence, numbness, pain, scarring the patient wishes to proceed. All questions answered. Patient is a current Eliquis and we will have him stop this appropriate days prior to procedure. Coding Level of Care Code New Pt Level 5 (18654) Diagnoses Inguinal hernia K40.90
[2022-12-23 09:37] VITALS: BP 162/71; PULSE 70; BMI 27.2
== END 2022-12-23 09:58 | disposition home or self-care (01) ==
PROVIDERS: PCP Internal Medicine; Visit Provider Surgery
DX: K40.90 Unilateral inguinal hernia, without obstruction or gangrene, not specified as recurrent (principal)
CPT/HCPCS: 99204

== ENCOUNTER → 2022-12-23 09:30 | Outpatient (BNVA) | payer MEDICARE, SELFPAY | PROVIDERS: PCP Internal Medicine; Visit Provider Surgery | DX: K40.90 Unilateral inguinal hernia, without obstruction or gangrene, not specified as recurrent (principal) | CPT/HCPCS: 99202 ==

== ENCOUNTER 2023-02-16 06:04 | Day surgery (SDC) | payer MEDICARE, SELFPAY ==
[2023-02-13 14:07] VITALS: BMI 27.2
--- NOTE | 2023-02-15 08:59 | HO.ANESPROP2 ---
Documented by User: Aster Carter NP 02/15/23 09:04 HPI - Anesthesia Eval Consult details Narrative: 77yo M for Right OPEN Hernia Repair Inguinal with mesh Eliquis for hx DVT PMFSH Active Problems Active Problems: All Active Problems (Updated 09/06/22 @ 14:39 by Cade Enriquez MD) Inguinal hernia (Acute) Dupuytren's contracture of left hand (Acute) Deep vein thrombosis (DVT) of left lower extremity (Acute) Annual physical exam (Acute) DVT (deep venous thrombosis) (Acute) Hemorrhagic cystitis (Acute) Radiation cystitis (Acute) Microscopic hematuria (Acute) Urinary urgency (Acute) Prostate cancer (Acute) Complex renal cyst (Acute) Adult general medical exam (Acute) Screening for colon cancer (Acute) Overweight (BMI 25.0-29.9) (Acute) History of prostate cancer (Acute) Renal cyst (Acute) Hematuria (Acute) Vitamin D deficiency (Acute) Osteoarthritis of left knee (Acute) Impaired fasting glucose (Acute) Pure hypercholesterolemia (Acute) Benign essential hypertension (Acute) Past Medical History Medical History Hypertension Diverticulosis Overweight (BMI 25.0-29.9) History of prostate cancer Renal cyst Vitamin D deficiency Osteoarthritis of left knee Impaired fasting glucose Pure hypercholesterolemia Benign essential hypertension Radiation cystitis Family History Family History Father Cancer Mother Colon cancer Family history of problems with anesthesia: No Surgical History Surgical History History of ankle surgery History of colonoscopy History of meniscectomy of left knee (~06/05/12) Hx of prostatectomy Hx of umbilical hernia repair History of Problems with Anesthesia: No Social History Social History (Updated 12/23/22 @ 09:40 by JAIMEE Hankins) Housing: House Alcohol intake: current Alcohol intake frequency: 0-2 drinks per day Alcohol type: beer Patient Tobacco Use Status: Never used Tobacco Second Hand Smoke Exposure: No Are you DNR?: No Advance Directives: No Advance Directives Information Provided: Yes Current occupational status: retired 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 Cognitive needs: No Hearing needs: No Vision needs: No Meds Allergies Allergy/AdvReac Type Severity Reaction Status Date / Time No Known Allergies Allergy Verified 12/23/22 09:39 Home Medications Medication Instructions Recorded Confirmed Last Taken Type cholecalciferol (vitamin D3) 10 10 mcg PO DAILY 06/01/20 11/01/22 Unknown History mcg (400 unit) tablet multivitamin 1 tab PO DAILY 06/01/20 11/01/22 Unknown History ascorbic acid (vitamin C) 500 mg 500 mg PO DAILY 12/08/21 11/01/22 Unknown History tablet (Vitamin C) Exam Exam Date and Time: February 15, 2023 0859 Height,Weight and Vital Signs: Height 5 ft 9 in Weight 83.461 kg Pertinent Lab Results Pertinent Lab Results: Laboratory Tests 09/02/22 08:23 WBC 4.8 Hgb 12.9 L Hct 40.0 L Plt Count 217 Sodium 143 Potassium 5.1 Chloride 112 H Carbon Dioxide 27 BUN 35 H Creatinine 1.36 Assessment and Plan Assessment Anesthesia Assessment: Chart Reviewed Final Anesthetic Review Family History of Problems with Anesthesia: No History of Problems with Anesthesia: No Documented by User: Jeffery Morales MD 02/16/23 07:23 [facility] Past Medical History Medical History Hypertension Diverticulosis Overweight (BMI 25.0-29.9) History of prostate cancer Renal cyst Vitamin D deficiency Osteoarthritis of left knee Impaired fasting glucose Pure hypercholesterolemia Benign essential hypertension Radiation cystitis Family History Family History Father Cancer Mother Colon cancer Surgical History Surgical History History of ankle surgery History of colonoscopy History of meniscectomy of left knee (~06/05/12) Hx of prostatectomy Hx of umbilical hernia repair Social History Social History (Updated 12/23/22 @ 09:40 by Stephanie Gore, RMA) Housing: House Alcohol intake: current Alcohol intake frequency: 0-2 drinks per day Alcohol type: beer Patient Tobacco Use Status: Never used Tobacco Second Hand Smoke Exposure: No Are you DNR?: No Advance Directives: No Advance Directives Information Provided: Yes Current occupational status: retired 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 Cognitive needs: No Hearing needs: No Vision needs: No Meds Allergies Allergy/AdvReac Type Severity Reaction Status Date / Time No Known Allergies Allergy Verified 12/23/22 09:39 Home Medications Medication Instructions Recorded Confirmed Last Taken Type cholecalciferol (vitamin D3) 10 10 mcg PO DAILY 06/01/20 11/01/22 Unknown History mcg (400 unit) tablet multivitamin 1 tab PO DAILY 06/01/20 11/01/22 Unknown History ascorbic acid (vitamin C) 500 mg 500 mg PO DAILY 12/08/21 11/01/22 Unknown History tablet (Vitamin C) Exam Airway Mallampati Class: II TM Dist: >3cm Neck ROM: Limited Heart: rrr Lungs: cta Assessment and Plan Assessment Anesthesia Assessment: Anesthesia Plan Discussed Final Anesthetic Review NPO: Yes ASA Class: II Final Preanesthetic Review: No Changes in Pt Med Stat, Meds/Allgs Chart Reviewed, Consent Obtained/Reviewed and Anes Risks/Benef Reviewed Patient Risk: Intermediate Procedure Risk: Intermediate Anesthetic Plan Anesthetic Plan: GA and Agree w/ Assess. and Plan Disposition: Standard PACU
--- NOTE | 2023-02-15 12:51 | MHC.SHP ---
Pre-Procedural Eval Section A Date of Service: 02/15/23 The patient is an INPATIENT: No Changes since office visit: No Cold of Flu in the past 2 weeks, No New Medical Problems, No Changes in Medication and No Patient answered all questions The History & Physical has been completed within 30 days and I have reviewed it.: Yes Section B Chief Complaint: Unilateral inguinal hernia, without obstruction or Allergies: Allergies Allergy/AdvReac Type Severity Reaction Status Date / Time No Known Allergies Allergy Verified 12/23/22 09:39 Plan I have reviewed the history and physical and performed a pertinent physical examination on my patient. No changes have occurred unless specified. Time Spent With Patient Time: Total time managing care of this patient today ____ minutes.
[2023-02-16 06:07] VITALS: BP 158/67; PULSE 73; RESP 18; TEMP 36.3; O2SAT 98
[2023-02-16] MEDS: Lactated Ringers 1,000 ML 100 ML IVCONT (06:32)
[2023-02-16 08:24] VITALS: BP 128/66; PULSE 79; RESP 16; TEMP 36.2; O2SAT 98
--- NOTE | 2023-02-16 08:35 | W.PM.OPN ---
Operative Note Operative Note Date of Service: 02/16/23 Narrative: Preoperative diagnosis: [] Symptomatic large right inguinal hernia Postop diagnosis: [] Same Procedure [] open right inguinal herniorrhaphy with Bard mesh Surgeon: [] Tushar Astronaut Mission Specialist: [] Keely Type of Anesthesia: [] MAC Indication for surgery: [] Very large indirect inguinal hernia. No direct hernia. Findings: [] Patient brought to the operating room, placed on operative table supine position, after adequate level of MAC anesthesia was induced, the right groin was prepped and draped in usual sterile fashion. Ilioinguinal block and wound infiltration with 0.5% Marcaine/1% lidocaine was undertaken. A small right para inguinal incision was made and carried down through skin, subcutaneous tissue, Sarah's fascia. External oblique fibers were opened their direction with care to isolate and preserve the ilioinguinal nerve throughout the procedure. Core was identified and retracted from the field. No direct hernia was demonstrated. A very large indirect hernia sac was identified, from the cord structures, reduced. A Bard plug was placed in this indirect defect and sutured inferiorly to the inguinal ligament and superiorly to the transversalis fascia using interrupted 0 Ethibond suture. At completion of procedure, mesh was in good position with no tension or gaps and cover the entire inguinal floor. Wounds irrigated, secured hemostasis, and closed in the following manner; external oblique fascia was reapproximated using running 2-0 Vicryl suture. Sarah's fascia was closed using up to 3-0 Vicryl sutures. Interrupted inverted deep dermal 3-0 Vicryl sutures followed by running subcuticular 4-0 Vicryl suture placed. Steri-Strips and sterile dressings were applied. Sponge, needle, instrument counts reported correct. Patient tolerated the procedure well and emerged anesthesia stable condition. Ipsilateral testicle was intrascrotal at completion the procedure. EBL minimal
[2023-02-16 08:39] VITALS: BP 127/55; PULSE 60; RESP 18; O2SAT 98
[2023-02-16 08:54] VITALS: BP 133/57; PULSE 55; RESP 18; TEMP 36.2
== END 2023-02-16 09:31 | disposition home or self-care (01) ==
PROVIDERS: PCP Internal Medicine; Visit Provider Surgery
PROC: (CPT 49505; principal; 2023-02-16 07:30)
DX: K40.90 Unilateral inguinal hernia, without obstruction or gangrene, not specified as recurrent (principal); I10 Essential (primary) hypertension; R73.01 Impaired fasting glucose; E78.00 Pure hypercholesterolemia, unspecified; E55.9 Vitamin D deficiency, unspecified; Z85.46 Personal history of malignant neoplasm of prostate; Z92.3 Personal history of irradiation; Z79.899 Other long term (current) drug therapy
CPT/HCPCS: 49505; C1781; J0131; J0690; J1885

== ENCOUNTER → 2023-02-16 06:04 | Outpatient (BNV) | payer MEDICARE, SELFPAY | PROVIDERS: PCP Internal Medicine; Visit Provider Surgery | DX: K40.90 Unilateral inguinal hernia, without obstruction or gangrene, not specified as recurrent (principal) | CPT/HCPCS: 49505 ==

== ENCOUNTER 2023-02-27 09:51 | Outpatient (AMB) | payer MEDICARE, SELFPAY ==
--- NOTE | 2023-02-27 09:54 | MHC.OFFVIS ---
Intake Vital Signs 02/27/23 09:59 Height 5 ft 9 in Weight 188 lb BMI 27.8 BP 142/66 H Blood Pressure Location Rt brachial Position Sitting Pulse 89 Intake Visit Reasons: S/P RIH w/mesh Intake Note: Patient here s/p RIH w/mesh. Reports incision healing well. Denies bleeding, oozing or pain. No longer taking rx pain meds. 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 He has no wound issues or complaints. He is increasing his activity level. He Is tolerating a diet. Having regular bowel habits. [facility] Medical History Hypertension Diverticulosis Overweight (BMI 25.0-29.9) History of prostate cancer Renal cyst Vitamin D deficiency Osteoarthritis of left knee Impaired fasting glucose Pure hypercholesterolemia Benign essential hypertension Radiation cystitis Surgical History Hx of right inguinal hernia repair (02/16/23) History of ankle surgery History of colonoscopy History of meniscectomy of left knee (~06/05/12) Hx of prostatectomy Hx of umbilical hernia repair Family History Father Cancer Mother Colon cancer Social History Housing: House Alcohol intake: current Alcohol intake frequency: 0-2 drinks per day Alcohol type: beer 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 Wound clean dry and intact. Assessment & Plan Assessment & Plan (1) Inguinal hernia: Code(s): K40.90 - Unilateral inguinal hernia, without obstruction or gangrene, not specified as recurrent Plan Patient has been given local instructions, and will follow-up p.r.n.. Coding Level of Care Code Global (20607) Diagnoses Inguinal hernia K40.90
[2023-02-27 09:59] VITALS: BP 142/66; PULSE 89; BMI 27.8
== END 2023-02-27 10:06 | disposition home or self-care (01) ==
PROVIDERS: PCP Internal Medicine; Visit Provider Surgery
DX: K40.90 Unilateral inguinal hernia, without obstruction or gangrene, not specified as recurrent (principal)
CPT/HCPCS: 99024

== ENCOUNTER → 2023-02-27 09:51 | Outpatient (BNVA) | payer MEDICARE, SELFPAY | PROVIDERS: PCP Internal Medicine; Visit Provider Surgery ==

== ENCOUNTER 2023-03-04 07:47 | Outpatient (REF) | payer MEDICARE, SELFPAY ==
[2023-03-04 08:01] LABS: MANUAL DIFF FLAG NO
[2023-03-04 08:24] LABS: Basophils Percent Auto 0.5 % (0-2); Eosinophils Absolute Auto 0.2 X10*3/uL (0.0-0.4); Eosinophils Percent Auto 2.9 % (0-4); Hematocrit 40.6 % (42.0-52.0); Hemoglobin 13.2 g/dl (14.0-18.0); Imm Gran Abs Auto 0.03 X10*3/uL (0.00-0.03); Imm Gran Pct Auto 0.5 % (0.0-0.4); Lymphocytes Absolute Auto 1.6 X10*3/uL (1.2-4.9); Lymphocytes Percent Auto 27.1 % (20-40); Mean Corpuscular HGB Conc 32.5 g/dl (31.0-36.0); Mean Corpuscular Volume 95.3 fL (80.0-98.0); Mean Platelet Volume 8.1 fL (9.4-12.4); Monocytes Absolute Auto 0.5 X10*3/uL (0.1-1.2); Monocytes Percent Auto 8.7 % (2-11); Neutrophils Absolute Auto 3.5 x10*3/uL (2.0-8.3); Neutrophils Percent Auto 60.3 % (45-73); Platelet Count 280 X10*3/uL (160-400); Red Blood Count 4.26 X10*6/uL (4.60-5.80); Red Cell Distribution Width 13.6 % (11.0-16.0); White Blood Count 5.9 X10*3/uL (4.8-10.8)
[2023-03-04 08:28] LABS: Appearance Urine Clear; Color Urine Yellow; Glucose Urine UA Negative (Negative); Leukocyte Esterase Urine Trace (Negative); Nitrite Urine Negative (Negative); PH 5.5 (5.0-9.0); UMIC TRIGGER UACC YES; Urine Blood Negative (Negative); Urine Ketones Negative (Negative); Urine Protein Negative (Neg-Trace)
[2023-03-04 08:38] LABS: Estimated Average Glucose 100 mg/dL; Hemoglobin A1c % 5.1 % (<6.0)
[2023-03-04 08:39] LABS: Bacteria Urine None Seen (None Seen); Hyaline Casts Urine 0-2 /LPF (0-2); RBC Urine 0-2 /HPF (0-2); Squamous Epithelial Cell Urine 0-2 /HPF (0-2); WBC Urine 0-5 /HPF (0-5)
[2023-03-04 08:58] LABS: Alanine Aminotransferase 16 U/L (0-40); Albumin Level 3.9 g/dL (3.5-5.0); Alkaline Phosphatase 55 U/L (39-117); Anion Gap 13 (12-20); Aspartate Amino Transferase 16 U/L (5-37); Bilirubin Total 0.4 mg/dL (0.0-1.0); Blood Urea Nitrogen 30 mg/dL (9-16); Calcium 9.8 mg/dL (8.4-10.2); Carbon Dioxide 25 mmol/L (22-29); Chloride 108 mmol/L (96-108); Cholesterol 188 mg/dL (<200); Estimated Glomerular Filt Rate 48; Glucose Fasting 97 mg/dL (60-99); HDL Cholesterol 63 mg/dL (>40); LDL Cholesterol Calculated 117 mg/dL (<100); Potassium 5.4 mmol/L (3.3-5.1); Sodium 141 mmol/L (135-145); Total Protein 7.3 g/dL (6.5-8.0); Triglycerides 42 mg/dL (<150)
[2023-03-04 09:18] LABS: TSH reflex Free T4 0.51 uIU/mL (0.32-4.0); Vitamin D 25-OH Total 57.5 ng/mL (>30)
[2023-03-04 09:22] LABS: Folate 16.9 ng/mL (> or = 4.0); Prostate Specific Antigen < 0.10 ng/mL (<0.05-4.0); Vitamin B12 328 pg/mL (200-900)
== END 2023-03-04 07:48 | disposition home or self-care (01) ==
LOC: HO.LAB 07:47
PROVIDERS: PCP Internal Medicine; Visit Provider Internal Medicine
DX: Z00.00 Encounter for general adult medical examination without abnormal findings (principal); Z12.5 Encounter for screening for malignant neoplasm of prostate; E55.9 Vitamin D deficiency, unspecified; E78.00 Pure hypercholesterolemia, unspecified; E53.8 Deficiency of other specified B group vitamins; N40.0 Benign prostatic hyperplasia without lower urinary tract symptoms; I10 Essential (primary) hypertension; R73.01 Impaired fasting glucose
CPT/HCPCS: 36415; 80053; 80061; 81001; 82306; 82607; 82746; 83036; 84153; 84443; 85025

== ENCOUNTER 2023-03-08 09:06 | Outpatient (AMB) | payer MEDICARE, SELFPAY ==
[2023-03-08 09:14] VITALS: BP 142/60; PULSE 89; O2SAT 99; BMI 27.5
--- NOTE | 2023-03-08 09:14 | MHC.PC.OV ---
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 Required: No Accompanied by: Self / Same As Patient Allergies No Known Allergies Allergy (Verified 03/08/23 09:32) Medication List - Last Reconciled 03/08/23 by Cade Enriquez MD amlodipine-benazepril 5-40 mg 1 cap PO DAILY 90 days apixaban (Eliquis) 2.5 mg PO BID 90 days ascorbic acid (vitamin C) (Vitamin C) 500 mg PO DAILY cholecalciferol (vitamin D3) 10 mcg PO DAILY hydrocodone-acetaminophen 5-325 mg 1 tab PO Q4-6H PRN multivitamin 1 tab PO DAILY vitamin E (dl, acetate) 450 mg PO DAILY Tobacco use date assessed: 03/08/23 Fall risk assessment: No Falls in past year Last assessed Fall Risk: 03/08/23 Dental Screening Dental Screen Date: 03/08/23 Did you have a dental visit in the last 12 months?: No Did you have a dental problem in the last 6 months where you did not have access to dental care?: No Was dental information given to patient?: No HPI Annual Physical HPI Details Patient comes in today for his annual physical examination States that he feels okay He denies any headaches or dizziness Denies any chest pains, no SOB No nausea/vomiting, no abdominal pain No change in bowel habits noted Denies any acute urinary symptoms Had his follow up labs done last week - to discuss his results Had his repeat screening colonoscopy done last year with Dr. Swift on 06/01/2021 - (+) tubular adenoma [facility] Medical History Hypertension Diverticulosis Overweight (BMI 25.0-29.9) History of prostate cancer Renal cyst Vitamin D deficiency Osteoarthritis of left knee Impaired fasting glucose Pure hypercholesterolemia Benign essential hypertension Radiation cystitis Surgical History Hx of right inguinal hernia repair (02/16/23) History of ankle surgery History of colonoscopy History of meniscectomy of left knee (~06/05/12) Hx of prostatectomy Hx of umbilical hernia repair Family History Father Cancer Mother Colon cancer Housing: House Alcohol intake: current Alcohol intake frequency: 0-2 drinks per day Alcohol type: beer 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 1. Little interest or pleasure in doing things: not at all 2. Feeling down, depressed, or hopeless: not at all 3. Trouble falling or staying asleep, or sleeping too much: not at all 4. Feeling tired or having little energy: not at all 5. Poor appetite or overeating: not at all 6. Feeling bad about yourself - or that you are a failure or have let yourself or your family down: not at all 7. Trouble concentrating on things, such as reading the newspaper or watching television: not at all 8. Moving or speaking so slowly that other people could have noticed. Or the opposite - being so fidgety or restless that you have been moving around a lot more than usual: not at all 9. Thoughts that you would be better off or of hurting yourself in some way: not at all Total score: 0 Depression Screening Interpretation: Negative Depression Screening Done: Yes 60753 - PHQ-9 Billing: Yes Source: Developed by Drs. Jean Resendez, Larisa Alonzo, Jaspal Boyce and colleagues, with an educational cheryl from [employer]. Thrive Questionnaire Date Thrive assessed: 03/08/23 I am a: Patient What is your living situation today?: I have a steady place to live Within the past 12 months, did the food you bought not last and you didn't have the money to get more?: Never true Within the past 12 months, did you worry whether your food would run out before you got money to buy more?: Never true Do you have trouble paying for medicines?: No Do you have trouble getting transportation to medical appointments?: No Do you have trouble paying your heating and electricity bill?: No Do you have trouble taking care of your child, family member or friend?: No Do you have trouble with day-to-day activities such as bathing, preparing meals, shopping, managing finances, etc.?: No Are you currently unemployed and looking for a job?: No Are you interested in more education?: No Please select the resources that you would like help with: None Currently or been in a relationship where the following occur: no concerns reported AUDIT C Alcohol Use Questionnaire (AUDIT-C) 1. How often do you have a drink containing alcohol?: 4 or more times a week 2. How many drinks containing alcohol do you have on a typical day when you are drinking?: 1 or 2 3. How often do you have six or more drinks on one occasion?: Never Total Score: 4 Score Reviewed/Action Taken: Yes ROSAMARIA-7 AMB Questionnaire ROSAMARIA-7 Date ROSAMARIA - 7 assessed: 03/08/23 Feeling nervous, anxious, or on edge: 0 = Not at all Not being able to stop or control worryin = Not at all Worrying too much about different things: 0 = Not at all Trouble relaxin = Not at all Being so restless that it is hard to sit still: 0 = Not at all Becoming easily annoyed or irritable: 0 = Not at all Feeling afraid as if something awful might happen: 0 = Not at all Total ROSAMARIA-7 score (0-4 normal; 5-9 mild; 10-14 moderate; 15-21 severe): 0 Source: Developed by Drs. Jean Resendez, Larisa Alonzo, Jaspal Boyce and colleagues, with an educational cheryl from [employer]. Review of Systems Const Denies chills, Denies fatigue, Denies fever(s), Denies headache(s), Denies malaise and Denies weakness Eyes Denies blurry vision, Denies change in vision, Denies irritation and Denies itchy eyes ENT Denies dysphagia, Denies dizziness, Denies otalgia, Denies headache(s), Denies nasal congestion, Denies neck pain, Denies odynophagia and Denies sore throat Card Denies chest pain, Denies rapid heart rate, Denies irregular heart rhythm, Denies palpitations and Denies dyspnea Resp Denies chest congestion, Denies cough, Denies dyspnea and Denies wheezing GI Denies abdominal pain, Denies bloating, Denies constipation, Denies dysphagia, Denies heartburn, Denies diarrhea, Denies nausea, Denies odynophagia and Denies vomiting Denies hematuria, Denies difficulty urinating, Denies dysuria, Denies urinary frequency and Denies urinary urgency Musc Denies back pain, Denies arthralgias, Denies joint swelling, Denies muscle weakness and Denies neck pain Skin/Breast Denies change in pigmentation, Denies lesions, Denies rash and Denies unusual bruising Neuro Denies dizziness, Denies headache(s), Denies paresthesias and Denies weakness Endo Denies fatigue and Denies palpitations Aller/Immun Denies itchy eyes and Denies wheezing Physical exam (Primary Care) Vital Signs: Last Vital Signs Pulse 89 03/08/23 09:14 BP 142/60 H 03/08/23 09:14 Pulse Ox 99 03/08/23 09:14 Oxygen Delivery Method Room Air 03/08/23 09:14 BMI result Body Mass Index 27.5 Tobacco/Smoking Status: Tobacco use Status Tobacco use date assessed 03/08/23 03/08/23 09:16 Patient Tobacco Use Status Never used Tobacco 03/08/23 09:16 PHQ-9: PHQ-9 Score PHQ-9: Total score 0 03/08/23 09:20 Depression Screening Interpretation: Negative Thrive Assessment: Date of Thrive Assessment Date Thrive assessed 03/08/23 03/08/23 09:16 Currently or been in a relationship where the following occur: no concerns reported Const General: no acute distress, alert and awake Orientation/consciousness: patient oriented x3 HENMT Head: Yes normocephalic and Yes atraumatic Ears: external ears normal, TM's normal bilaterally and EAC's normal General nose exam: No nasal discharge present Face and sinus: Yes normal facial exam and Yes sinuses nontender Teeth and gingiva: dentition normal Throat: Yes posterior oropharynx normal and Yes tonsils normal (no TP congestion) Eyes Eyelids: Yes eyelids normal Conjunctivae: conjunctivae normal Pupils: Equal, round and reactive pupils present EOM: EOMs intact bilaterally Neck Neck: Yes no lymphadenopathy and Yes supple Thyroid: Thyroid normal Resp Auscultation: clear to auscultation bilaterally, no rales and no wheezes Cardio Rate: regular rate Rhythm: regular rhythm Heart sounds: no murmurs GI Palpation (GI): Soft to palpation, nontender and No hepatosplenomegaly present Auscultation: normal bowel sounds General: Yes no CVA tenderness Back/Spine/Pelvis Back: no CVA tenderness Thoracic/Lumbar Spine: thoracic and lumbar spine normal to inspection Skin Lesions: no lesions Rashes: no rashes Neuro General: patient oriented x3, moves all extremities, no focal motor deficits and CN's II-XI intact bilaterally Cranial nerves: Yes Equal, round and reactive pupils present Cognition (Neuro): normal cognition Gait exam (Neuro): Normal gait present Extrem General: Yes no clubbing, cyanosis or edema Results Reviewed Results Reviewed: Laboratory Tests 03/04/23 03/04/23 03/04/23 07:59 07:59 08:15 WBC 5.9 Hgb 13.2 L Hct 40.6 L Plt Count 280 D Sodium 141 Potassium 5.4 H Creatinine 1.43 H Estimated GFR 48 Fasting Glucose 97 Hemoglobin A1c % 5.1 Calcium 9.8 AST 16 ALT 16 Triglycerides 42 Cholesterol 188 LDL Cholesterol, Calc 117 H HDL Cholesterol 63 Prostate Specific Ag < 0.10 Vitamin B12 328 25-OH Vitamin D Total 57.5 TSH 0.51 Ur Specific [place] Urine Protein Negative Urine Glucose (UA) Negative Urine Blood Negative 03/04/23 08:15 WBC Hgb Hct Plt Count Sodium Potassium Creatinine Estimated GFR Fasting Glucose Hemoglobin A1c % Calcium AST ALT Triglycerides Cholesterol LDL Cholesterol, Calc HDL Cholesterol Prostate Specific Ag Vitamin B12 25-OH Vitamin D Total TSH Ur Specific [place] 1.020 Urine Protein Urine Glucose (UA) Urine Blood Assessment and Plan Assessment & Plan (1) Annual physical exam: Code(s): Z00.00 - Encounter for general adult medical examination without abnormal findings Plan: Results of his labs done last week reviewed and discussed with patient He is up-to-date with his cancer screenings - colonoscopy was last done in May 2021 (tubular adenoma) but based on his age, should no longer need repeat colonoscopy unless he has any urgent indication to do so (2) Deep vein thrombosis (DVT) of left lower extremity: Code(s): I82.402 - Acute embolism and thrombosis of unspecified deep veins of left lower extremity Qualifiers: Affected thrombotic vein of extremity: femoral Chronicity: acute Qualified Code(s): I82.412 - Acute embolism and thrombosis of left femoral vein Plan: S/P IVC filter placement; filter was removed a few months ago Continue Apixaban 2.5 mg BID Venous doppler in April 2022 still shows (+) partially occlusive embolus in the left lower extremity involving the common femoral and femoral veins proximally Will repeat venous doppler of the left lower extremity for follow up and to assess resolution of his DVT (3) Radiation cystitis: Code(s): N30.40 - Irradiation cystitis without hematuria Plan: Cystoscopy done last year confirmed findings of radiation cystitis, which is most likely the source of his recurrent hematuria Patient underwent hyperbaric oxygen chamber Tx last year and felt that this helped with his hemorrhagic cystitis Follow up with urology as scheduled (4) Benign essential hypertension: Code(s): I10 - Essential (primary) hypertension Plan: Reinforced low sodium diet - goal is systolic BP of at least 140 to 150 mm Continue Amlodipine-Benazepril 5-40 mg QD (5) Pure hypercholesterolemia: Code(s): E78.00 - Pure hypercholesterolemia, unspecified Plan: Results of his labs done last week reviewed and discussed with patient Reinforced low cholesterol diet Will recheck his labs and fasting lipids in 6 months for follow up (6) Dupuytren's contracture of left hand: Code(s): M72.0 - Palmar fascial fibromatosis [Dupuytren] Plan: Follow up with orthopedics as scheduled States that he has been advised that surgery is an option but he may be incapacitated for a while following surgery Patient declined surgical intervention at this time and states that he has learned to live with his pain so far (7) Impaired fasting glucose: Code(s): R73.01 - Impaired fasting glucose Plan: Reinforced low calorie diet/exercise as tolerated HgbA1c was normal at 5.1% on his labs done recently (8) History of prostate cancer: Comment: S/P radiation Tx years ago Code(s): Z85.46 - Personal history of malignant neoplasm of prostate Plan: Follow up with urology as scheduled for continuing surveillance (9) Osteoarthritis of left knee: Comment: S/P partial medial meniscectomy and chondroplasty of the medial femoral condyle of the left knee by Dr. Russ back on 06/05/2012 Code(s): M17.12 - Unilateral primary osteoarthritis, left knee Qualifiers: Osteoarthritis type: primary Qualified Code(s): M17.12 - Unilateral primary osteoarthritis, left knee Plan: Continue Ibuprofen PRN for knee pain Follow up with orthopedics as scheduled or as needed (10) Vitamin D deficiency: Code(s): E55.9 - Vitamin D deficiency, unspecified Plan: Corrected - continue OTC Vitamin D 400 units QD Will continue to monitor his Vitamin D level regularly (11) Renal cyst: Comment: Repeat/follow up US of his right renal cyst (in the upper pole) done back in September 2017 showed a slight increase in the exophytic mass/cyst in the upper pole of the right kidney MRI done in March 2018 showed (+) multiple bilateral renal simple cysts, with an exophytic complex cystic mass at the upper pole of the right kidney corresponding to the US findings Follow up US done in August 2019 showed no change in the complex cyst at the upper pole of the right kidney - plan to repeat US again in 1 year for follow up Code(s): N28.1 - Cyst of kidney, acquired Plan: Will continue to monitor and observe for now Follow up with urology as scheduled (12) Overweight (BMI 25.0-29.9): Code(s): E66.3 - Overweight Plan: Reinforced diet/exercise as tolerated/lose weight Plan Follow up in 6 months Orders: Orders Complete Blood Count Auto Diff 6 Months I10 - Essential (primary) hypertension Lipid Panel 6 Months E78.00 - Pure hypercholesterolemia, unspecified UA CC w/rflx Micro + Cult 6 Months R30.0 - Dysuria TSH reflex Free T4 6 Months E78.00 - Pure hypercholesterolemia, unspecified Vitamin D 25-OH Total 6 Months E55.9 - Vitamin D deficiency, unspecified US venous duplex LE LT Today I82.402 - Acute embolism and thrombosis of unspecified deep veins of left lower extremity Comprehensive [place]. Panel Fast 6 Months E78.00 - Pure hypercholesterolemia, unspecified Coding Level of Care Code Est Pt Prev Care >65y(17496) Diagnoses Annual physical exam Z00.00 Acute deep vein thrombosis (DVT) of femoral vein of left lower extremity I82.412 Affected thrombotic vein of extremity: femoral Chronicity: acute Radiation cystitis N30.40 Benign essential hypertension I10 Pure hypercholesterolemia E78.00 Dupuytren's contracture of left hand M72.0 Impaired fasting glucose R73.01 History of prostate cancer Z85.46 Primary osteoarthritis of left knee M17.12 Osteoarthritis type: primary Vitamin D deficiency E55.9 Renal cyst N28.1 Overweight (BMI 25.0-29.9) E66.3
== END 2023-03-08 10:02 | disposition home or self-care (01) ==
PROVIDERS: Visit Provider Internal Medicine
DX: Z00.00 Encounter for general adult medical examination without abnormal findings (principal); I82.412 Acute embolism and thrombosis of left femoral vein; N30.40 Irradiation cystitis without hematuria; I10 Essential (primary) hypertension; E78.00 Pure hypercholesterolemia, unspecified; M72.0 Palmar fascial fibromatosis [Dupuytren]; R73.01 Impaired fasting glucose; Z85.46 Personal history of malignant neoplasm of prostate; M17.12 Unilateral primary osteoarthritis, left knee; E55.9 Vitamin D deficiency, unspecified; N28.1 Cyst of kidney, acquired; E66.3 Overweight
CPT/HCPCS: 99397

== ENCOUNTER 2023-04-19 10:48 | Outpatient (REF) | payer MEDICARE, SELFPAY | END 2023-04-19 10:49 | disposition home or self-care (01) | LOC: HO.US 10:48 | PROVIDERS: PCP Internal Medicine; Visit Provider Internal Medicine | DX: I82.402 Acute embolism and thrombosis of unspecified deep veins of left lower extremity (principal) | CPT/HCPCS: 93971 ==

== ENCOUNTER 2023-05-02 10:31 | Outpatient (REF) | payer MEDICARE, SELFPAY ==
[2023-05-02 13:18] LABS: Prostate Specific Antigen < 0.10 ng/mL (<0.05-4.0)
== END 2023-05-02 10:32 | disposition home or self-care (01) ==
LOC: HO.LAB 10:31
PROVIDERS: PCP Internal Medicine; Visit Provider Urology
DX: C61 Malignant neoplasm of prostate (principal); Z12.5 Encounter for screening for malignant neoplasm of prostate
CPT/HCPCS: 36415; 84153

== ENCOUNTER 2023-05-05 09:32 | Outpatient (AMB) | payer MEDICARE, SELFPAY ==
--- NOTE | 2023-05-05 09:34 | MHC.OFFVIS ---
Intake Intake Visit Reasons: 6M PSA(set) Intake Note: Patient is Present for Telephone Follow Up PSA Urology Med: None Antibiotic Allergy: None Blood Thinner: Eliquis Allergies No Known Allergies Allergy (Verified 05/05/23 09:35) Medication List - Last Reconciled 05/05/23 by Ruperto Trevino MD amlodipine-benazepril 5-40 mg 1 cap PO DAILY 90 days apixaban (Eliquis) 2.5 mg PO BID 90 days ascorbic acid (vitamin C) (Vitamin C) 500 mg PO DAILY cholecalciferol (vitamin D3) 10 mcg PO DAILY hydrocodone-acetaminophen 5-325 mg 1 tab PO Q4-6H PRN multivitamin 1 tab PO DAILY vitamin E (dl, acetate) 450 mg PO DAILY HPI HPI Comments History of Present Illness Details Charles is a very pleasant male. He is a patient of Dr. Enriquez. He is seen for the following urologic conditions - prostate cancer - radiation cystitis - renal cyst Telemedicine Evaluation 15 min Consultation DoximDoublePositive [place] Video attempted Still has some urine leakage - uses pad No further blood in urine Healed after round of hyperbaric oxygen Had blood clot on blood thinner Remains on vitamin E PSA controlled 6 month follow-up Prostate cancer 2004 - radical prostatectomy [facility]. Postprocedure radiation required 2009 Laboratories - 10/04 PSA < 0.1, <12/05 <0.1, 06/08 <0.1, 05/09 <0.1, 11/06 <0.1, 05/10 <0.1 Check PSA every 6 months Renal cyst Followed by MRI. Complex cyst right side. No enhancement. Yearly ultrasound. Imaging - 09/03 ULTRASOUND RIGHT COMPLEX CYST 7 X 8 CM, left 2 simple cysts Radiation cystitis Diagnosis cystoscopy June 2020 Hemorrhagic cystitis responded to tranexamic acid with vitamin E Continue with vitamin-E Cytology 06/07 NAD Cystoscopy 08/06 hemorrhagic cystitis and radiation cystitis lower half bladder 01/06 episode of hematuria retention and Morales catheter placed 01/06 underwent hyperbaric oxygen [facility] Medical History Hypertension Diverticulosis Overweight (BMI 25.0-29.9) History of prostate cancer Renal cyst Vitamin D deficiency Osteoarthritis of left knee Impaired fasting glucose Pure hypercholesterolemia Benign essential hypertension Radiation cystitis Surgical History Hx of right inguinal hernia repair (02/16/23) History of ankle surgery History of colonoscopy History of meniscectomy of left knee (~06/05/12) Hx of prostatectomy Hx of umbilical hernia repair Family History Father Cancer Mother Colon cancer Social History Housing: House Alcohol intake: current Alcohol intake frequency: 0-2 drinks per day Alcohol type: beer Comment: . 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 Cognitive needs: No Hearing needs: No Vision needs: No Review of Systems Const All systems reviewed & are unremarkable except as noted in HPI and below Reports no additional complaints Resp Reports no additional complaints GI Reports no additional complaints Reports as per HPI Musc Reports no additional complaints Physical Exam Telemedicine evaluation Appropriate responses Regular breathing rate and rhythm HEENT Head: Yes normal to inspection Ears: hearing grossly normal bilaterally Eyes General: appearance normal, both eyes and all related structures Neck Neck: Yes normal visual inspection Chest Chest palpation & inspection: normal inspection of the chest Resp Effort & Inspection: normal respiratory effort and able to speak in complete sentences Assessment & Plan Assessment & Plan (1) Prostate cancer: Comment: Radical prostatectomy 2003, external beam radiation 2009 Code(s): C61 - Malignant neoplasm of prostate (2) Radiation cystitis: Code(s): N30.40 - Irradiation cystitis without hematuria (3) Hemorrhagic cystitis: Code(s): N30.91 - Cystitis, unspecified with hematuria Plan PSA in 6 months Orders: Orders Prostate Specific Antigen 6 Months C61 - Malignant neoplasm of prostate Patient Instructions: Imaging studies, laboratory and physical exam results were discussed and reviewed in detail. No major barriers to patient understanding were identified. An opportunity to ask questions regarding the treatment plan was provided. All questions were answered. The patient expressed understanding and agreement with the above treatment plan. The patient is aware they should contact our office by phone for worsening of their current condition or the appearance of new urologic symptoms. Compliance is encouraged with any medications and followup testing that is ordered. It is a privilege to participate in the urologic care of your patient. If you have any questions or concerns regarding treatment for the above conditions, or other urologic issues, please do not hesitate to contact me. The office telephone contact is [phone]. This note is constructed using voice recognition software. While every effort has been made to ensure accuracy physician office clin asst errors may have been included. Yours sincerely, Dr Ruperto Trevino MD, [facility] - Urology Providers of Expert, Compassionate Care for the Genitourinary System Telehealth Telehealth Location of provider rendering services: practice address Location of patient: address on file Patient Identification confirmed using: Name, : Yes Telehealth method: voice only Patient verbally consented to treatment: Yes Patient verbally consented to billing insurance company: Yes Patient informed of any privacy concerns related to visit: Yes Coding Level of Care Code Tele Est Pt Level 4 (46124) Diagnoses Prostate cancer C61 Radiation cystitis N30.40 Hemorrhagic cystitis N30.91
== END 2023-05-05 10:23 | disposition home or self-care (01) ==
LOC: HO.HUSH 09:32
PROVIDERS: PCP Internal Medicine; Visit Provider Urology
DX: C61 Malignant neoplasm of prostate (principal); N30.40 Irradiation cystitis without hematuria; N30.91 Cystitis, unspecified with hematuria
CPT/HCPCS: 99442

== ENCOUNTER → 2023-05-05 09:32 | Outpatient (BNVA) | payer MEDICARE, SELFPAY | PROVIDERS: PCP Internal Medicine; Visit Provider Urology ==

== ENCOUNTER 2023-05-11 08:20 | Outpatient (AMB) | payer MEDICARE, SELFPAY ==
[2023-05-11 08:26] VITALS: BMI 27.5
--- NOTE | 2023-05-11 08:26 | MHC.OFFVIS ---
Intake Vital Signs 05/11/23 08:26 Height 5 ft 9 in Weight 186 lb BMI 27.5 Intake Visit Reasons: New Prob- Bilateral knee pain Intake Note: Charles is a 78 year old male who presents with bilateral knee pain. Patient reports that his pain is a 3 on the 1-10 pain scale. He states the pain has been going on for years, it has improved but hurt when going up and down stairs. The patient does walk outdoors for exercise. He also goes to the gym 3 days per week. The patient states that his discomfort has improved somewhat over the last few weeks. Allergies No Known Allergies Allergy (Verified 05/11/23 08:34) Medication List - Last Reconciled 05/11/23 by Jasmeet Perry MD amlodipine-benazepril 5-40 mg 1 cap PO DAILY 90 days apixaban (Eliquis) 2.5 mg PO BID 90 days ascorbic acid (vitamin C) (Vitamin C) 500 mg PO DAILY cholecalciferol (vitamin D3) 10 mcg PO DAILY hydrocodone-acetaminophen 5-325 mg 1 tab PO Q4-6H PRN multivitamin 1 tab PO DAILY vitamin E (dl, acetate) 450 mg PO DAILY [facility] Medical History Hypertension Diverticulosis Overweight (BMI 25.0-29.9) History of prostate cancer Renal cyst Vitamin D deficiency Osteoarthritis of left knee Impaired fasting glucose Pure hypercholesterolemia Benign essential hypertension Radiation cystitis Surgical History Hx of right inguinal hernia repair (02/16/23) History of ankle surgery History of colonoscopy History of meniscectomy of left knee (~06/05/12) Hx of prostatectomy Hx of umbilical hernia repair Family History Father Cancer Mother Colon cancer Social History Housing: House Alcohol intake: current Alcohol intake frequency: 0-2 drinks per day Alcohol type: beer Comment: . 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 Cognitive needs: No Hearing needs: No Vision needs: No Physical Exam Vital Signs: BMI result Body Mass Index 27.5 Const Other: Well-nourished well-developed very friendly male awake alert and oriented x3 in no acute distress Extrem Other: Bilateral lower extremity examination shows good capillary refill, no skin lesions noted, normal sensation light touch Bilateral knee examination shows minimal effusions, mild crepitus with range of motion, range of motion from -3 degrees to 115 degrees, no instability Results Reviewed Results Reviewed: X-rays of the patient's bilateral knee show moderate joint space narrowing, no acute bony abnormalities Assessment & Plan Assessment & Plan (1) Right knee pain: Code(s): M25.561 - Pain in right knee (2) Left knee pain: Code(s): M25.562 - Pain in left knee Plan [facility] [place] presents with bilateral knee pains due to degenerative joint disease. I had a lengthy discussion with the patient regarding the treatment options. At this point the patient's symptoms are improving. We will hold off on an injection. Activity modifications were discussed at length with the patient. The patient also has intermittent low back pain. Thus, I will refer him to Dr. Mosley for further evaluation. The patient will follow up with me on an as-needed basis should his symptoms worsen in any way. Feel free to call me at any time should questions regarding his orthopedic management arise. I spent 20 minutes in reviewing the patient's records and imaging studies, seeing the patient and documenting in the medical record. Orders: Orders XR knee LT 3V Today M25.562 - Pain in left knee XR knee RT 3V Today M25.561 - Pain in right knee Referrals Pain Management Referral M54.50 - Low back pain, unspecified Coding Level of Care Code Est Pt Level 2 (73469) Diagnoses Right knee pain M25.561 Left knee pain M25.562
== END 2023-05-11 09:03 | disposition home or self-care (01) ==
PROVIDERS: PCP Internal Medicine; Visit Provider Orthopaedic Surgery
DX: M17.0 Bilateral primary osteoarthritis of knee (principal); M54.50 Low back pain, unspecified
CPT/HCPCS: 99213

== ENCOUNTER 2023-05-11 14:51 | Outpatient (REF) | payer MEDICARE, SELFPAY ==
--- NOTE | ~2023-05-11 | XR_ITS ---
EXAMINATION: XR KNEE, LEFT CLINICAL INFORMATION: Left knee pain COMPARISON: Left knee x-ray on 10/06/2011 TECHNIQUE: Three views of the left knee. FINDINGS: BONES: Bony structures are intact. There is no focal bone destruction or periosteal reaction seen. JOINTS: Alignment of joints is normal. There is marked asymmetric decrease in medial compartment left knee joint space. SOFT TISSUE: Soft tissue is normal. No radiopaque foreign body or abnormal air collection is seen. XR/XR knee LT 3V IMPRESSION: 1. Interval development of advanced medial compartment left tibiofemoral joint osteoarthritis. 2. No fracture or dislocation or signs of osteomyelitis are found.
--- NOTE | ~2023-05-11 | XR_ITS ---
EXAMINATION: XR KNEE, RIGHT CLINICAL INFORMATION: Right knee pain COMPARISON: Right knee x-rays on 10/06/2011 TECHNIQUE: Three views of the right knee. FINDINGS: BONES: Bony structures are intact. There is no focal bone destruction or periosteal reaction seen. JOINTS: Alignment of joints is normal. SOFT TISSUE: Soft tissue is normal. No radiopaque foreign body or abnormal air collection is seen. XR/XR knee RT 3V IMPRESSION: 1. Unchanged Normal x-rays of right knee. No fracture or dislocation or signs of osteomyelitis are found.
== END 2023-05-11 14:52 | disposition home or self-care (01) ==
LOC: HO.HOSX 14:51
PROVIDERS: Visit Provider Orthopaedic Surgery
DX: M25.561 Pain in right knee (principal); M25.562 Pain in left knee
CPT/HCPCS: 73562; 99212

== ENCOUNTER 2023-05-24 08:50 | Outpatient (AMB) | payer MEDICARE, SELFPAY ==
--- NOTE | 2023-05-24 08:54 | A.OFFVIS_ITS ---
Intake Vital Signs 05/24/23 08:58 Height 5 ft 9 in Weight 190 lb BMI 28.1 BP 160/78 H Blood Pressure Location Lt brachial Position Sitting Respiration 12 Pulse 88 Pulse Source Pulse Oximeter Pulse Oximetry (%) 98 Oxygen Delivery Method Room Air Intake Visit Reasons: low back pain Allergies No Known Allergies Allergy (Verified 05/24/23 09:01) Medication List - Last Reconciled 05/24/23 by Lilibeth Lyon LPN amlodipine-benazepril 5-40 mg 1 cap PO DAILY 90 days apixaban (Eliquis) 2.5 mg PO BID 90 days ascorbic acid (vitamin C) (Vitamin C) 500 mg PO DAILY cholecalciferol (vitamin D3) 10 mcg PO DAILY multivitamin 1 tab PO DAILY vitamin E (dl, acetate) 450 mg PO DAILY HPI low back pain HPI Details 78-year-old male who presents today to t he office for an evaluation of low back pain. He was referred by Dr. Perry for axial low back pain. The pain is described as an aching sensation. It is rated at 7/10 in intensity, mostly in the axial low back with slight extension towards the right. The pain started about 40 years ago. He is not able to sleep normally and do his daily activities, but during the day the pain varies and is usually brought on by movements. Medical history is notable for DVT status post-removal of the IBC filter now on Eliquis 2.5 milligrams twice daily. He has had severe back pain and spasms that started a day after the [employer] shopping during . He had to walk off the golf course three times last summer and fall, and he started experiencing tightness. He reports bilateral knee pain that has been ongoing for years. His pain worsens when going up or down the stairs. He does walk outdoors for exercise. He also goes to the gym three days per week. He has a history of prostate cancer diagnosed about 13 years ago, and he had radiation therapy about 10 years ago. He subsequently developed radiation cystitis and was following up with Dr. Trevino. He was treated with oral medication with no benefit. He was treated in a hyperbaric oxygen chamber with good benefit. [facility] Medical History Hypertension Diverticulosis Overweight (BMI 25.0-29.9) History of prostate cancer Renal cyst Vitamin D deficiency Osteoarthritis of left knee Impaired fasting glucose Pure hypercholesterolemia Benign essential hypertension Radiation cystitis Surgical History Hx of right inguinal hernia repair (02/16/23) History of ankle surgery History of colonoscopy History of meniscectomy of left knee (~06/05/12) Hx of prostatectomy Hx of umbilical hernia repair Family History Father Cancer Mother Colon cancer Social History Housing: House Alcohol intake: current Alcohol intake frequency: 0-2 drinks per day Alcohol type: beer Comment: . 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 Alert and oriented. Mood and affect appropriate. Follows and participates in conversation appropriately. Respiratory effort is unlabored. Able to transition from sit to stand unassisted. Ambulates with bilaterally normal heel strike and toe off. Forward flexion and axial rotation reproduces pain. Straight leg raise is positive bilaterally. Results Reviewed Results Reviewed: 12/08/21: CT ANGIOGRAM OF THE CHEST WITH AND WITHOUT CONTRAST Finding: OSSEOUS STRUCTURES: There is multi-level marked thoracic spondylosis, with an appearance suggesting possible DISH (diffuse idiopathic skeletal hyperostosis). No acute or aggressive osseous abnormality is seen. 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 No aggressive osseous lesion is seen. Assessment & Plan Assessment & Plan (1) Lumbar spondylosis: Code(s): M47.816 - Spondylosis without myelopathy or radiculopathy, lumbar region (2) Disc degeneration, lumbar: Code(s): M51.36 - Other intervertebral disc degeneration, lumbar region (3) Left knee pain: Code(s): M25.562 - Pain in left knee Plan His low back pain is likely secondary to combination of lumbar spondylosis, lumbar disc degeneration, and potential vertebral endplate degeneration. A referral was provided to physical therapy. A script was also provided to the patient for physical therapy. If his pain continues to persist, we will order an MRI scan for further evaluation. We discussed possible treatment options including gel injections vs. PRP injections vs. cortisone injections versus PNS for left knee pain. The patient will follow up in two months. Scribed for Dr. Mosley by Efrain Contreras, medical staff credentialing coordinator, on 05/24/2023. I, Dr. Mosley, have personally reviewed and agree with the information entered by the scribe. Orders: Orders PT Evaluation and Treatment 05/24/23 M25.562 - Pain in left knee, M47.816 - Spondylosis without myelopathy or radiculopathy, lumbar region, M51.36 - Other intervertebral disc degeneration, lumbar region Coding Level of Care Code New Pt Level 4 (30565) Diagnoses Lumbar spondylosis M47.816 Disc degeneration, lumbar M51.36 Left knee pain M25.562
[2023-05-24 08:58] VITALS: BP 160/78; PULSE 88; RESP 12; O2SAT 98; BMI 28.1
== END 2023-05-24 09:33 | disposition home or self-care (01) ==
LOC: HO.PMC 08:50
PROVIDERS: PCP Internal Medicine; Referring Provider Orthopaedic Surgery; Visit Provider Internal Medicine
DX: M47.816 Spondylosis without myelopathy or radiculopathy, lumbar region (principal); M51.36 Other intervertebral disc degeneration, lumbar region; M25.562 Pain in left knee
CPT/HCPCS: 99204; 99214

== ENCOUNTER → 2023-05-24 08:50 | Outpatient (BNVA) | payer MEDICARE, SELFPAY | PROVIDERS: PCP Internal Medicine; Referring Provider Orthopaedic Surgery; Visit Provider Internal Medicine | DX: M47.816 Spondylosis without myelopathy or radiculopathy, lumbar region (principal); M51.36 Other intervertebral disc degeneration, lumbar region; M25.562 Pain in left knee | CPT/HCPCS: 99202 ==

== ENCOUNTER 2023-06-12 14:53 | Outpatient (AMB) | payer MEDICARE, SELFPAY ==
[2023-06-12 14:55] VITALS: BP 132/62; PULSE 80; O2SAT 97; BMI 27.2
--- NOTE | 2023-06-12 14:55 | MHC.PC.OV ---
Vital Signs 06/12/23 14:55 Height 5 ft 9 in Weight 184 lb BMI 27.2 BP 132/62 Blood Pressure Location Lt brachial Position Sitting Pulse 80 Pulse Source Pulse Oximeter Pulse Oximetry (%) 97 Oxygen Delivery Method Room Air Intake Visit Reasons: cataracts 06/18 & 07/02 Neonatal Nurse Required: No Automotive Lot Attendant: Not Required per policy Accompanied by: Self / Same As Patient Allergies No Known Allergies Allergy (Verified 06/12/23 15:33) Medication List - Last Reconciled 06/12/23 by Cade Enriquez MD amlodipine-benazepril 5-40 mg 1 cap PO DAILY 90 days apixaban (Eliquis) 2.5 mg PO BID 90 days ascorbic acid (vitamin C) (Vitamin C) 500 mg PO DAILY cholecalciferol (vitamin D3) 10 mcg PO DAILY multivitamin 1 tab PO DAILY vitamin E (dl, acetate) 450 mg PO DAILY Tobacco use date assessed: 06/12/23 Fall risk assessment: No Falls in past year Last assessed Fall Risk: 06/12/23 Dental Screening Dental Screen Date: 06/12/23 Did you have a dental visit in the last 12 months?: Yes Did you have a dental problem in the last 6 months where you did not have access to dental care?: No Was dental information given to patient?: Patient has dentist HPI cataracts 06/18 & 07/02 HPI Details Patient comes in today at the request of Dr. Drew Knight for a preoperative medical examination for clearance for surgery He is scheduled for cataract extraction/phacoemusification with IOL of the right eye under MAC on 06/19/2023, followed by the same procedure on the left eye a couple of weeks later on 07/03/2023 Patient states that he feels okay He just started physical therapy last week (referred by pain management) for his low back pain He denies any headaches or dizziness Denies any chest pains, no SOB No nausea/vomiting, no abdominal pain No change in bowel habits noted [facility] Medical History Hypertension Diverticulosis Overweight (BMI 25.0-29.9) History of prostate cancer Renal cyst Vitamin D deficiency Osteoarthritis of left knee Impaired fasting glucose Pure hypercholesterolemia Benign essential hypertension Radiation cystitis Surgical History Hx of right inguinal hernia repair (02/16/23) History of ankle surgery History of colonoscopy History of meniscectomy of left knee (~06/05/12) Hx of prostatectomy Hx of umbilical hernia repair Family History Father Cancer Mother Colon cancer Social History Housing: House Alcohol intake: current Alcohol intake frequency: 0-2 drinks per day Alcohol type: beer Comment: . 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 1. Little interest or pleasure in doing things: not at all 2. Feeling down, depressed, or hopeless: not at all 3. Trouble falling or staying asleep, or sleeping too much: not at all 4. Feeling tired or having little energy: not at all 5. Poor appetite or overeating: not at all 6. Feeling bad about yourself - or that you are a failure or have let yourself or your family down: not at all 7. Trouble concentrating on things, such as reading the newspaper or watching television: not at all 8. Moving or speaking so slowly that other people could have noticed. Or the opposite - being so fidgety or restless that you have been moving around a lot more than usual: not at all 9. Thoughts that you would be better off or of hurting yourself in some way: not at all Total score: 0 Depression Screening Interpretation: Negative Depression Screening Done: Yes 89519 - PHQ-9 Billing: Yes Source: Developed by Drs. Jean Resendez, aLrisa Alonzo, Jaspal Boyce and colleagues, with an educational cheryl from [employer]. Thrive Questionnaire Date Thrive assessed: 06/12/23 I am a: Patient What is your living situation today?: I have a steady place to live Within the past 12 months, did the food you bought not last and you didn't have the money to get more?: Never true Within the past 12 months, did you worry whether your food would run out before you got money to buy more?: Never true Do you have trouble paying for medicines?: No Do you have trouble getting transportation to medical appointments?: No Do you have trouble paying your heating and electricity bill?: No Do you have trouble taking care of your child, family member or friend?: No Do you have trouble with day-to-day activities such as bathing, preparing meals, shopping, managing finances, etc.?: No Are you currently unemployed and looking for a job?: No Are you interested in more education?: No Please select the resources that you would like help with: None Currently or been in a relationship where the following occur: no concerns reported THRIVE Score: 0 AUDIT C Alcohol Use Questionnaire (AUDIT-C) 1. How often do you have a drink containing alcohol?: 4 or more times a week 2. How many drinks containing alcohol do you have on a typical day when you are drinking?: 1 or 2 3. How often do you have six or more drinks on one occasion?: Never Total Score: 4 Score Reviewed/Action Taken: Yes ROSAMARIA-7 AMB Questionnaire ROSAMARIA-7 Date ROSAMARIA - 7 assessed: 06/12/23 Feeling nervous, anxious, or on edge: 0 = Not at all Not being able to stop or control worryin = Not at all Worrying too much about different things: 0 = Not at all Trouble relaxin = Not at all Being so restless that it is hard to sit still: 0 = Not at all Becoming easily annoyed or irritable: 0 = Not at all Feeling afraid as if something awful might happen: 0 = Not at all Total ROSAMARIA-7 score (0-4 normal; 5-9 mild; 10-14 moderate; 15-21 severe): 0 Source: Developed by Drs. Jean Resendez, Larisa Alonzo, Jaspal Boyce and colleagues, with an educational cheryl from [employer]. Review of Systems Const Denies chills, Denies fatigue, Denies fever(s) and Denies headache(s) Eyes Denies blurry vision ENT Denies dysphagia, Denies dizziness, Denies otalgia, Denies headache(s), Denies neck pain, Denies odynophagia and Denies sore throat Card Denies chest pain, Denies rapid heart rate, Denies irregular heart rhythm, Denies palpitations and Denies dyspnea Resp Denies chest congestion, Denies cough, Denies dyspnea and Denies wheezing GI Denies abdominal pain, Denies constipation, Denies dysphagia, Denies heartburn, Denies diarrhea, Denies nausea, Denies odynophagia and Denies vomiting Denies hematuria, Denies difficulty urinating, Denies dysuria and Denies urinary frequency Musc Denies back pain, Denies arthralgias and Denies neck pain Skin/Breast Denies rash Neuro Denies dizziness and Denies headache(s) Endo Denies fatigue and Denies palpitations Aller/Immun Denies wheezing Physical exam (Primary Care) Vital Signs: Last Vital Signs Pulse 80 06/12/23 14:55 BP 132/62 06/12/23 14:55 Pulse Ox 97 06/12/23 14:55 Oxygen Delivery Method Room Air 06/12/23 14:55 BMI result Body Mass Index 27.2 Tobacco/Smoking Status: Tobacco use Status Tobacco use date assessed 06/12/23 06/12/23 15:01 Patient Tobacco Use Status Never used Tobacco 06/12/23 15:01 PHQ-9: PHQ-9 Score PHQ-9: Total score 0 06/12/23 15:01 Depression Screening Interpretation: Negative Thrive Assessment: Date of Thrive Assessment Date Thrive assessed 06/12/23 06/12/23 15:01 Currently or been in a relationship where the following occur: no concerns reported Const General: no acute distress and alert HENMT Ears: TM's normal bilaterally and EAC's normal Throat: Yes posterior oropharynx normal and Yes tonsils normal (no TP congestion) Neck Neck: Yes no lymphadenopathy and Yes supple Thyroid: Thyroid normal Resp Auscultation: clear to auscultation bilaterally, no rales and no wheezes Cardio Rate: regular rate Rhythm: regular rhythm Heart sounds: no murmurs GI Palpation (GI): Soft to palpation and nontender Auscultation: normal bowel sounds General: Yes no CVA tenderness Back/Spine/Pelvis Back: no CVA tenderness Skin Rashes: no rashes Extrem General: Yes no clubbing, cyanosis or edema Assessment and Plan Assessment & Plan (1) Preoperative examination: Code(s): Z01.818 - Encounter for other preprocedural examination Plan: Patient presents with acceptable risks for planned low cardiac risk procedure He is currently medically optimized and does not appear to have any contraindications to undergo planned surgery (2) Cataracts, bilateral: Code(s): H26.9 - Unspecified cataract Qualifiers: Cataract type: unspecified Qualified Code(s): H26.9 - Unspecified cataract Plan: He is scheduled for cataract extraction/phacoemusification with IOL of the right eye under MAC on 06/19/2023, followed by the same procedure on the left eye a couple of weeks later on 07/03/[address] Knight (3) Deep vein thrombosis (DVT) of left lower extremity: Code(s): I82.402 - Acute embolism and thrombosis of unspecified deep veins of left lower extremity Qualifiers: Affected thrombotic vein of extremity: femoral Chronicity: acute Qualified Code(s): I82.412 - Acute embolism and thrombosis of left femoral vein Plan: S/P IVC filter placement; filter was removed last year Venous doppler in April 2022 still showed (+) partially occlusive embolus in the left lower extremity involving the common femoral and femoral veins proximally Repeat venous doppler of the left lower extremity done last month (April 2023) still showed a 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 with interval resolution of the thrombus in the left femoral vein Continue Apixaban 2.5 mg BID (4) Benign essential hypertension: Code(s): I10 - Essential (primary) hypertension Plan: Reinforced low sodium diet - goal is systolic BP of at least 140 to 150 mm Continue Amlodipine-Benazepril 5-40 mg QD (5) Pure hypercholesterolemia: Code(s): E78.00 - Pure hypercholesterolemia, unspecified Plan: Reinforced low cholesterol diet His cholesterol numbers have been adequately controlled with diet modification alone (6) Impaired fasting glucose: Code(s): R73.01 - Impaired fasting glucose Plan: Reinforced low calorie diet/exercise as tolerated HgbA1c was normal at 5.1% when previously checked (7) Dupuytren's contracture of left hand: Code(s): M72.0 - Palmar fascial fibromatosis [Dupuytren] Plan: Follow up with orthopedics as scheduled States that he has been advised that surgery is an option but he may be incapacitated for a while following surgery Patient declined surgical intervention at this time and states that he has learned to live with his pain so far (8) Osteoarthritis of left knee: Comment: S/P partial medial meniscectomy and chondroplasty of the medial femoral condyle of the left knee by Dr. Russ back on 06/05/2012 Code(s): M17.12 - Unilateral primary osteoarthritis, left knee Qualifiers: Osteoarthritis type: primary Qualified Code(s): M17.12 - Unilateral primary osteoarthritis, left knee Plan: Continue Ibuprofen PRN for knee pain Follow up with orthopedics as scheduled or as needed (9) Lumbar spondylosis: Code(s): M47.816 - Spondylosis without myelopathy or radiculopathy, lumbar region Plan: Reinforced activity and weight lifting restrictions He is currently going to physical therapy (referred by pain management) Follow up with pain management as scheduled (10) Radiation cystitis: Code(s): N30.40 - Irradiation cystitis without hematuria Plan: Cystoscopy done last year confirmed findings of radiation cystitis, which is most likely the source of his recurrent hematuria Patient underwent hyperbaric oxygen chamber Tx last year and felt that this helped with his hemorrhagic cystitis Follow up with urology as scheduled (11) History of prostate cancer: Comment: S/P radiation Tx years ago Code(s): Z85.46 - Personal history of malignant neoplasm of prostate Plan: S/P radiation Tx Follow up with urology as scheduled for continuing surveillance (12) Vitamin D deficiency: Code(s): E55.9 - Vitamin D deficiency, unspecified Plan: Corrected - continue OTC Vitamin D 400 units QD Will continue to monitor his Vitamin D level regularly (13) Renal cyst: Comment: Repeat/follow up US of his right renal cyst (in the upper pole) done back in September 2017 showed a slight increase in the exophytic mass/cyst in the upper pole of the right kidney MRI done in March 2018 showed (+) multiple bilateral renal simple cysts, with an exophytic complex cystic mass at the upper pole of the right kidney corresponding to the US findings Follow up US done in August 2019 showed no change in the complex cyst at the upper pole of the right kidney - plan to repeat US again in 1 year for follow up Code(s): N28.1 - Cyst of kidney, acquired Plan: Will continue to monitor and observe for now Follow up with urology as scheduled (14) Overweight (BMI 25.0-29.9): Code(s): E66.3 - Overweight Plan: Reinforced diet/exercise as tolerated/lose weight Plan Patient is currently medically optimized and has no contraindications to undergo planned cataract surgeries on 06/19/2023 and 07/03/2023 Follow up as scheduled in August 2023 Coding Level of Care Code Est Pt Level 3 (07942) Diagnoses Preoperative examination Z01.818 Cataract of both eyes, unspecified cataract type H26.9 Cataract type: unspecified Acute deep vein thrombosis (DVT) of femoral vein of left lower extremity I82.412 Affected thrombotic vein of extremity: femoral Chronicity: acute Benign essential hypertension I10 Pure hypercholesterolemia E78.00 Impaired fasting glucose R73.01 Dupuytren's contracture of left hand M72.0 Primary osteoarthritis of left knee M17.12 Osteoarthritis type: primary Lumbar spondylosis M47.816 Radiation cystitis N30.40 History of prostate cancer Z85.46 Vitamin D deficiency E55.9 Renal cyst N28.1 Overweight (BMI 25.0-29.9) E66.3
== END 2023-06-12 15:30 | disposition home or self-care (01) ==
PROVIDERS: PCP Internal Medicine; Visit Provider Internal Medicine
DX: Z01.818 Encounter for other preprocedural examination (principal); H26.9 Unspecified cataract; I82.412 Acute embolism and thrombosis of left femoral vein; I10 Essential (primary) hypertension; E78.00 Pure hypercholesterolemia, unspecified; R73.01 Impaired fasting glucose; M72.0 Palmar fascial fibromatosis [Dupuytren]; M17.12 Unilateral primary osteoarthritis, left knee; M47.816 Spondylosis without myelopathy or radiculopathy, lumbar region; N30.40 Irradiation cystitis without hematuria; Z85.46 Personal history of malignant neoplasm of prostate; E55.9 Vitamin D deficiency, unspecified; N28.1 Cyst of kidney, acquired; E66.3 Overweight
CPT/HCPCS: 99213

== ENCOUNTER 2023-06-19 09:02 | Day surgery (SDC) | payer MEDICARE, SELFPAY ==
[2023-06-14 16:09] VITALS: BMI 27.2
--- NOTE | 2023-06-16 10:48 | HO.ANESPROP2 ---
Documented by User: Aster Carter NP 06/16/23 10:48 HPI - Anesthesia Eval Consult details Narrative: 78yo M for Right Cataract Extraction IOL Insertion Medically cleared No previous cataract on record Eliquis for hx DVT PMFSH Active Problems Active Problems: All Active Problems (Updated 06/12/23 @ 15:47 by Cade Enriquez MD) Cataracts, bilateral (Acute) Preoperative examination (Acute) Disc degeneration, lumbar (Acute) Lumbar spondylosis (Acute) Low back pain (Acute) Right knee pain (Acute) Left knee pain (Acute) Inguinal hernia (Acute) Dupuytren's contracture of left hand (Acute) Deep vein thrombosis (DVT) of left lower extremity (Acute) Annual physical exam (Acute) DVT (deep venous thrombosis) (Acute) Hemorrhagic cystitis (Acute) Radiation cystitis (Acute) Microscopic hematuria (Acute) Urinary urgency (Acute) Prostate cancer (Acute) Complex renal cyst (Acute) Adult general medical exam (Acute) Screening for colon cancer (Acute) Overweight (BMI 25.0-29.9) (Acute) History of prostate cancer (Acute) Renal cyst (Acute) Hematuria (Acute) Vitamin D deficiency (Acute) Osteoarthritis of left knee (Acute) Impaired fasting glucose (Acute) Pure hypercholesterolemia (Acute) Benign essential hypertension (Acute) Past Medical History Medical History Hypertension Diverticulosis Overweight (BMI 25.0-29.9) History of prostate cancer Renal cyst Vitamin D deficiency Osteoarthritis of left knee Impaired fasting glucose Pure hypercholesterolemia Benign essential hypertension Radiation cystitis Family History Family History Father Cancer Mother Colon cancer Family history of problems with anesthesia: No Surgical History Surgical History Hx of right inguinal hernia repair (02/16/23) History of ankle surgery History of colonoscopy History of meniscectomy of left knee (~06/05/12) Hx of prostatectomy Hx of umbilical hernia repair History of Problems with Anesthesia: No Social History Social History Housing: House Alcohol intake: current Alcohol intake frequency: 0-2 drinks per day Alcohol type: beer Comment: . 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 Cognitive needs: No Hearing needs: No Vision needs: Yes Meds Allergies Allergy/AdvReac Type Severity Reaction Status Date / Time No Known Allergies Allergy Verified 06/12/23 15:33 Home Medications Medication Instructions Recorded Confirmed Last Taken Type cholecalciferol (vitamin D3) 10 10 mcg PO DAILY 06/01/20 06/19/23 Unknown History mcg (400 unit) tablet multivitamin 1 tab PO DAILY 06/01/20 06/19/23 Unknown History ascorbic acid (vitamin C) 500 mg 500 mg PO DAILY 12/08/21 06/19/23 Unknown History tablet (Vitamin C) Exam Height,Weight and Vital Signs: Height 5 ft 9 in Weight 83.461 kg Assessment and Plan Assessment Anesthesia Assessment: Chart Reviewed Final Anesthetic Review Family History of Problems with Anesthesia: No History of Problems with Anesthesia: No Documented by User: Lindy Chiang MD 06/19/23 13:32 PMFSH Past Medical History Medical History Hypertension Diverticulosis Overweight (BMI 25.0-29.9) History of prostate cancer Renal cyst Vitamin D deficiency Osteoarthritis of left knee Impaired fasting glucose Pure hypercholesterolemia Benign essential hypertension Radiation cystitis Family History Family History Father Cancer Mother Colon cancer Surgical History Surgical History Hx of right inguinal hernia repair (02/16/23) History of ankle surgery History of colonoscopy History of meniscectomy of left knee (~06/05/12) Hx of prostatectomy Hx of umbilical hernia repair Social History Social History Housing: House Alcohol intake: current Alcohol intake frequency: 0-2 drinks per day Alcohol type: beer Comment: . 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 Cognitive needs: No Hearing needs: No Vision needs: Yes Meds Allergies Allergy/AdvReac Type Severity Reaction Status Date / Time No Known Allergies Allergy Verified 06/12/23 15:33 Home Medications Medication Instructions Recorded Confirmed Last Taken Type cholecalciferol (vitamin D3) 10 10 mcg PO DAILY 06/01/20 06/19/23 Unknown History mcg (400 unit) tablet multivitamin 1 tab PO DAILY 06/01/20 06/19/23 Unknown History ascorbic acid (vitamin C) 500 mg 500 mg PO DAILY 12/08/21 06/19/23 Unknown History tablet (Vitamin C) Exam Airway Mallampati Class: II TM Dist: >3cm Neck ROM: Full Assessment and Plan Assessment Anesthesia Assessment: Anesthesia Plan Discussed Final Anesthetic Review NPO: Yes Final Preanesthetic Review: No Changes in Pt Med Stat, Meds/Allgs Chart Reviewed, Consent Obtained/Reviewed and Anes Risks/Benef Reviewed Patient Risk: Intermediate Procedure Risk: Low Anesthetic Plan Anesthetic Plan: MAC: Disposition: Standard PACU
[2023-06-19 10:15] VITALS: PULSE 72; RESP 18; TEMP 36.1; O2SAT 99; BMI 26.6
[2023-06-19] MEDS: Lactated Ringers 500 ML 50 ML IV (13:01)
[2023-06-19] MEDS: Tetracaine HCl/PF 0.5% Oph Sol 4 ML DROPS 1 DROP EYE-RIGHT (13:02)
[2023-06-19] MEDS: Tropicamide 1 % Ophth Sol 3 ML BTL 1 DROP EYE-RIGHT ×3 (13:02→13:07)
[2023-06-19] MEDS: Cyclopentolate 1 % Ophth Sol 2 ML DRPBTL 1 DROP EYE-RIGHT ×3 (13:03→13:08)
[2023-06-19] MEDS: Ketorolac Tromethamine 0.5% Op 5 ML DROPS 1 DROP EYE-RIGHT ×3 (13:03→13:08)
[2023-06-19] MEDS: Phenylephrine HCL 2.5% Oph SoL 2 ML BOTTLE 1 DROP EYE-RIGHT ×3 (13:03→13:08)
--- NOTE | 2023-06-19 13:55 | MHC.SHP ---
Pre-Procedural Eval Section A - 24 Hr Update-Section A only Date of Service: 06/19/23 The patient is an INPATIENT: No Changes since office visit: No Cold of Flu in the past 2 weeks, No New Medical Problems, No Changes in Medication and No Patient answered all questions The patient has been examined within 24 hours of the surgical procedure. The History & Physical has been completed within 30 days and I have reviewed it.: Yes Section B - Complete if H&P > 30 days Chief Complaint: Age-related nuclear cataract, right eye Allergies: Allergies Allergy/AdvReac Type Severity Reaction Status Date / Time No Known Allergies Allergy Verified 06/12/23 15:33 Plan Diagnosis/Plan: Unchanged I have reviewed the history and physical and performed a pertinent physical examination on my patient. No changes have occurred unless specified. Time Spent With Patient Time: Total time managing care of this patient today ____ minutes.
--- NOTE | 2023-06-19 13:55 | HO.PNOPHT ---
Ophthalmology Procedure Procedure Date of Service: 06/19/23 Ophthalmology Viscoelastic: Healon Duet Dual Pack Pro Ophthalmology Lenses: Other ([id number]) Procedure Notes: PREOPERATIVE DIAGNOSIS: Decreased visual acuity right eye secondary to cataract POSTOPERATIVE DIAGNOSIS: Same PROCEDURE: Right cataract extraction with intraocular lens insertion SURGEON: Drew Knight M.D. ANESTHESIA: Topical/MAC ESTIMATED BLOOD LOSS: None COMPLICATIONS: None After obtaining informed consent, the patient was brought to the operating room suite and placed in the supine position. After adequate sedation per anesthesia, topical drops of Tetracaine were given to the right eye. The eye was then prepped and draped in the usual sterile fashion. The operating room microscope was then positioned over the operative eye and a lid speculum placed. A paracentesis was created. Viscoelastic was then instilled into the anterior chamber. A three plane incision was then created temporally, utilizing a 2.85 mm keratome. Capsulotomy forceps were then utilized to create a circular tear capsulotomy. Hydrodissection and hydrodelineation were carried out until adequate mobilization of the nucleus occurred. Phacoemulsification was then utilized to remove the dense central nucleus followed by removal of the cortical material utilizing the automated aspiration irrigation unit. Viscoelastic was instilled into the posterior capsular bag followed by placement of a posterior chamber intraocular lens without difficulty. The residual Viscoelastic was then removed utilizing the automated IA machine. The wound was checked and found to be watertight. The patient tolerated the procedure well and the lid speculum was removed. Intracameral injection of Vigamox 0.1 mL followed by a subtenon injection of Kenalog-40 0.2 mL were administered. The patient will be seen in the a.m.
[2023-06-19 14:29] VITALS: BP 144/75; PULSE 72; RESP 16; TEMP 36.8; O2SAT 97
== END 2023-06-19 14:44 | disposition home or self-care (01) ==
PROVIDERS: PCP Internal Medicine; Visit Provider Ophthalmology
PROC: (CPT 66985; principal; 2023-06-19 11:20)
DX: H25.11 Age-related nuclear cataract, right eye (principal); H54.7 Unspecified visual loss; H33.321 Round hole, right eye; H18.413 Arcus senilis, bilateral; I10 Essential (primary) hypertension; E78.00 Pure hypercholesterolemia, unspecified; E55.9 Vitamin D deficiency, unspecified; Z85.46 Personal history of malignant neoplasm of prostate; Z92.3 Personal history of irradiation; Z79.01 Long term (current) use of anticoagulants; Z79.899 Other long term (current) drug therapy
CPT/HCPCS: 66984; J2250; J3010; J3301; V2630

== ENCOUNTER 2023-07-03 10:01 | Day surgery (SDC) | payer MEDICARE, SELFPAY ==
[2023-06-14 16:10] VITALS: BMI 27.2
[2023-07-03 12:14] VITALS: BP 146/77; PULSE 65; RESP 16; TEMP 36.1; O2SAT 96
[2023-07-03] MEDS: Tetracaine HCl/PF 0.5% Oph Sol 4 ML DROPS 1 DROP EYE-LEFT (12:29)
[2023-07-03] MEDS: Cyclopentolate 1 % Ophth Sol 2 ML DRPBTL 1 DROP EYE-LEFT ×3 (12:31→12:42)
[2023-07-03] MEDS: Tropicamide 1 % Ophth Sol 3 ML BTL 1 DROP EYE-LEFT ×3 (12:33→12:43)
[2023-07-03] MEDS: Ketorolac Tromethamine 0.5% Op 5 ML DROPS 1 DROP EYE-LEFT ×3 (12:34→12:44)
[2023-07-03] MEDS: Phenylephrine HCL 2.5% Oph SoL 2 ML BOTTLE 1 DROP EYE-LEFT ×3 (12:36→12:45)
[2023-07-03] MEDS: Lactated Ringers 500 ML 50 ML IV (12:46)
--- NOTE | 2023-07-03 12:51 | HO.ANESPROP2 ---
HPI - Anesthesia Eval Consult details Narrative: Left eye cataract + IOL PMFSH Active Problems Active Problems: All Active Problems (Updated 06/12/23 @ 15:47 by Cade Enriquez MD) Cataracts, bilateral (Acute) Preoperative examination (Acute) Disc degeneration, lumbar (Acute) Lumbar spondylosis (Acute) Low back pain (Acute) Right knee pain (Acute) Left knee pain (Acute) Inguinal hernia (Acute) Dupuytren's contracture of left hand (Acute) Deep vein thrombosis (DVT) of left lower extremity (Acute) Annual physical exam (Acute) DVT (deep venous thrombosis) (Acute) Hemorrhagic cystitis (Acute) Radiation cystitis (Acute) Microscopic hematuria (Acute) Urinary urgency (Acute) Prostate cancer (Acute) Complex renal cyst (Acute) Adult general medical exam (Acute) Screening for colon cancer (Acute) Overweight (BMI 25.0-29.9) (Acute) History of prostate cancer (Acute) Renal cyst (Acute) Hematuria (Acute) Vitamin D deficiency (Acute) Osteoarthritis of left knee (Acute) Impaired fasting glucose (Acute) Pure hypercholesterolemia (Acute) Benign essential hypertension (Acute) Past Medical History Medical History Hypertension Diverticulosis Overweight (BMI 25.0-29.9) History of prostate cancer Renal cyst Vitamin D deficiency Osteoarthritis of left knee Impaired fasting glucose Pure hypercholesterolemia Benign essential hypertension Radiation cystitis Family History Family History Father Cancer Mother Colon cancer Family history of problems with anesthesia: No Surgical History Surgical History Hx of right inguinal hernia repair (02/16/23) History of ankle surgery History of colonoscopy History of meniscectomy of left knee (~06/05/12) Hx of prostatectomy Hx of umbilical hernia repair History of Problems with Anesthesia: No Social History Social History Housing: House Alcohol intake: current Alcohol intake frequency: 0-2 drinks per day Alcohol type: beer Comment: . 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 Cognitive needs: No Hearing needs: No Vision needs: Yes Meds Allergies Allergy/AdvReac Type Severity Reaction Status Date / Time No Known Allergies Allergy Verified 07/03/23 12:20 Active Medications: Current Medications Lactated Ringer's (Lr) 500 mls @ 50 mls/hr IV .Q10H KINSEY Stop: 07/03/23 19:14 Last Admin: 07/03/23 12:46 Dose: 50 mls/hr Povidone Iodine (Povidone Iodine 5 % Ophth Soln 30 Ml Bottle) 1 appl EYE-LEFT PREOP PRN PRN Reason: Pre-Op Surgical Implant Prophy Home Medications Medication Instructions Recorded Confirmed Last Taken Type cholecalciferol (vitamin D3) 10 10 mcg PO DAILY 06/01/20 06/19/23 Unknown History mcg (400 unit) tablet multivitamin 1 tab PO DAILY 06/01/20 06/19/23 Unknown History ascorbic acid (vitamin C) 500 mg 500 mg PO DAILY 12/08/21 06/19/23 Unknown History tablet (Vitamin C) Exam Height,Weight and Vital Signs: Height 5 ft 9 in Weight 83.461 kg Last Vital Signs Temp 97.0 F 07/03/23 12:14 Pulse 65 07/03/23 12:14 Resp 16 07/03/23 12:14 BP 146/77 H 07/03/23 12:14 Pulse Ox 96 07/03/23 12:14 O2 Del Method Room Air 07/03/23 12:14 Airway Mallampati Class: II TM Dist: >3cm Neck ROM: Full Loose/Missing/Broken Teeth: Yes (poor dentition multiple chipped upper front and globally) Heart: [id number] Lungs: cta b/l Assessment and Plan Assessment Anesthesia Assessment: Anesthesia Plan Discussed and Chart Reviewed Final Anesthetic Review Family History of Problems with Anesthesia: No History of Problems with Anesthesia: No NPO: Yes ASA Class: III Final Preanesthetic Review: No Changes in Pt Med Stat, Meds/Allgs Chart Reviewed, Consent Obtained/Reviewed and Anes Risks/Benef Reviewed Patient Risk: Intermediate Procedure Risk: Intermediate Assessment/Block/Sedation in SS: Assess/Block/Sedation- Anesthetic Plan Anesthetic Plan: MAC: Disposition: Standard PACU
--- NOTE | 2023-07-03 14:00 | MHC.SHP ---
Pre-Procedural Eval Section A - 24 Hr Update-Section A only Date of Service: 07/03/23 The patient is an INPATIENT: No Changes since office visit: No Cold of Flu in the past 2 weeks, No New Medical Problems, No Changes in Medication and No Patient answered all questions The patient has been examined within 24 hours of the surgical procedure. The History & Physical has been completed within 30 days and I have reviewed it.: Yes Section B - Complete if H&P > 30 days Chief Complaint: Age-related nuclear cataract, left eye Allergies: Allergies Allergy/AdvReac Type Severity Reaction Status Date / Time No Known Allergies Allergy Verified 07/03/23 12:20 Plan Diagnosis/Plan: Unchanged I have reviewed the history and physical and performed a pertinent physical examination on my patient. No changes have occurred unless specified. Time Spent With Patient Time: Total time managing care of this patient today ____ minutes.
--- NOTE | 2023-07-03 14:00 | HO.PNOPHT ---
Ophthalmology Procedure Procedure Date of Service: 07/03/23 Ophthalmology Viscoelastic: Healon Duet Dual Pack Pro Ophthalmology Lenses: Other (ma60 22.5) Procedure Notes: PREOPERATIVE DIAGNOSIS: Decreased visual acuity left eye secondary to cataract POSTOPERATIVE DIAGNOSIS: Same PROCEDURE: Left cataract extraction with intraocular lens insertion SURGEON: Drew Knight M.D. ANESTHESIA: Topical/MAC ESTIMATED BLOOD LOSS: None COMPLICATIONS: None After obtaining informed consent, the patient was brought to the operation room suite and placed in the supine position. After adequate sedation per anesthesia, topical drops of Tetracaine were given to the left eye. The eye was then prepped and draped in the usual sterile fashion. The operating room microscope was then positioned over the operative eye and a lid speculum placed. A paracentesis was created. Viscoelastic was then instilled into the anterior chamber. A three plane incision was then created temporally, utilizing a 2.85 mm keratome. Capsulotomy forceps were then utilized to create a circular tear capsulotomy. Hydrodissection and hydrodelineation were carried out until adequate mobilization of the nucleus occurred. Phacoemulsification was then utilized to remove the dense central nucleus followed by removal of the cortical material utilizing the automated aspiration irrigation unit. Viscoat elastic was instilled into the posterior capsular bag followed by placement of a posterior chamber intraocular lens without difficulty. The residual Viscoat elastic was then removed utilizing the automated IA machine. The wound was check and found to be watertight. The patient tolerated the procedure well and the lid speculum was removed. Intracameral injection of Vigamox 0.1 mL followed by a subtenon injection of Kenalog-40 0.2 mL were administered. The patient will be seen in the a.m.
[2023-07-03 14:28] VITALS: BP 157/66; PULSE 74; RESP 16; TEMP 36.4; O2SAT 100
[2023-07-03 14:43] VITALS: BP 155/77; PULSE 66; RESP 20; TEMP 36.4; O2SAT 99
== END 2023-07-03 14:45 | disposition home or self-care (01) ==
PROVIDERS: PCP Internal Medicine; Visit Provider Ophthalmology
PROC: (CPT 66985; principal; 2023-07-03 11:40)
DX: H25.12 Age-related nuclear cataract, left eye (principal); H54.7 Unspecified visual loss; H18.413 Arcus senilis, bilateral; I10 Essential (primary) hypertension; Z79.01 Long term (current) use of anticoagulants; Z79.899 Other long term (current) drug therapy
CPT/HCPCS: 66984; J2250; J3010; J3301; V2630

== ENCOUNTER 2023-08-21 09:57 | Outpatient (AMB) | payer MEDICARE, SELFPAY ==
[2023-08-21 10:01] VITALS: BP 136/70; PULSE 87; RESP 14; O2SAT 98; BMI 26.6
--- NOTE | 2023-08-21 10:01 | A.OFFVIS_ITS ---
Vital Signs 08/21/23 10:01 Height 5 ft 9 in Weight 180 lb BMI 26.6 BP 136/70 Blood Pressure Location Lt brachial Position Sitting Respiration 14 Pulse 87 Pulse Source Pulse Oximeter Pulse Oximetry (%) 98 Oxygen Delivery Method Room Air Intake Visit Reasons: 2 Month F/u Allergies No Known Allergies Allergy (Verified 08/21/23 10:02) Medication List - Last Reconciled 08/21/23 by Lilibeth Lyon LPN amlodipine-benazepril 5-40 mg 1 cap PO DAILY 90 days apixaban (Eliquis) 2.5 mg PO BID 90 days ascorbic acid (vitamin C) (Vitamin C) 500 mg PO DAILY cholecalciferol (vitamin D3) 10 mcg PO DAILY multivitamin 1 tab PO DAILY vitamin E (dl, acetate) 450 mg PO DAILY HPI HPI 2 Month F/u: Details: 78-year-old male who presents today to the office for a two-month follow-up. He states that his pain improved significantly after physical therapy. He went to PT at [facility] in [place]. He has completed physical therapy. He has been doing physical therapy exercises at home every day. He states that he has to sit down for 1-2 minutes after standing for more than 30 minutes. He has had no pain on the golf course, which he did last year. He went hiking recently. He walked about 6 miles last . He denies any back pain while going down the hill. He was seen by the orthopedics and underwent an x-ray. He had hernia repair surgery in February 2023. He has had difficulty climbing stairs since his hernia surgery. He has been using a walker for ambulation. He performs knee exercises at the gym. He takes ibuprofen for relief. His IVC filter was removed. [facility] Medical History Hypertension Diverticulosis Overweight (BMI 25.0-29.9) History of prostate cancer Renal cyst Vitamin D deficiency Osteoarthritis of left knee Impaired fasting glucose Pure hypercholesterolemia Benign essential hypertension Radiation cystitis Surgical History Hx of right inguinal hernia repair (02/16/23) History of ankle surgery History of colonoscopy History of meniscectomy of left knee (~06/05/12) Hx of prostatectomy Hx of umbilical hernia repair Family History Father Cancer Mother Colon cancer Social History Housing: House Alcohol intake: current Alcohol intake frequency: 0-2 drinks per day Alcohol type: beer Comment: . 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 Alert and oriented. Mood and affect appropriate. Follows and participates in conversation appropriately. Respiratory effort is unlabored. Able to transition from sit to stand unassisted. Ambulates with bilaterally normal heel strike and toe off. Results Reviewed Results Reviewed: 05/10/23: XR KNEE, RIGHT FINDINGS: BONES: Bony structures are intact. There is no focal bone destruction or periosteal reaction seen. JOINTS: Alignment of joints is normal. SOFT TISSUE: Soft tissue is normal. No radiopaque foreign body or abnormal air collection is seen. IMPRESSION: 1. Unchanged Normal x-rays of right knee. No fracture or dislocation or signs of osteomyelitis are found. 05/10/23: XR KNEE, LEFT FINDINGS: BONES: Bony structures are intact. There is no focal bone destruction or periosteal reaction seen. JOINTS: Alignment of joints is normal. There is marked asymmetric decrease in medial compartment left knee joint space. SOFT TISSUE: Soft tissue is normal. No radiopaque foreign body or abnormal air collection is seen. IMPRESSION: 1. Interval development of advanced medial compartment left tibiofemoral joint osteoarthritis. 2. No fracture or dislocation or signs of osteomyelitis are found. Assessment & Plan Assessment & Plan (1) Lumbar spondylosis: Code(s): M47.816 - Spondylosis without myelopathy or radiculopathy, lumbar region Category: Medical (2) Disc degeneration, lumbar: Code(s): M51.36 - Other intervertebral disc degeneration, lumbar region Category: Medical (3) Right knee pain: Code(s): M25.561 - Pain in right knee Category: Medical (4) Left knee pain: Code(s): M25.562 - Pain in left knee Category: Medical Plan His knee pain is not too bothersome at this time. While it occasionally impacts his activities, especially climbing downhill, for the most part he is able to engage in both activities of daily living as well as leisure and recreation without much problems. If and when his knee pain becomes bothersome he will call to set up and returned for an appointment. Discussed cortisone injection vs. gel injections vs. nerve stimulators vs. PRP injections for knee pain. Scribed for Dr. Mosley by Efrain Contreras, medical information officer, on 08/21/2023. I, Dr. Mosley, have personally reviewed and agree with the information entered by the scribe. Coding Level of Care Code Est Pt Level 3 (82890) Diagnoses Lumbar spondylosis M47.816 Disc degeneration, lumbar M51.36 Right knee pain M25.561 Left knee pain M25.562
== END 2023-08-21 10:47 | disposition home or self-care (01) ==
PROVIDERS: PCP Internal Medicine; Visit Provider Internal Medicine
DX: M47.816 Spondylosis without myelopathy or radiculopathy, lumbar region (principal); M51.36 Other intervertebral disc degeneration, lumbar region; M25.561 Pain in right knee; M25.562 Pain in left knee
CPT/HCPCS: 99213

== ENCOUNTER → 2023-08-21 09:57 | Outpatient (BNVA) | payer MEDICARE, SELFPAY | PROVIDERS: PCP Internal Medicine; Visit Provider Internal Medicine | DX: M47.816 Spondylosis without myelopathy or radiculopathy, lumbar region (principal); M51.36 Other intervertebral disc degeneration, lumbar region; M25.561 Pain in right knee; M25.562 Pain in left knee | CPT/HCPCS: 99212 ==

== ENCOUNTER 2023-09-04 07:32 | Outpatient (REF) | payer MEDICARE, SELFPAY ==
[2023-09-04 07:46] LABS: MANUAL DIFF FLAG NO
[2023-09-04 08:14] LABS: Basophils Percent Auto 0.5 % (0-2); Eosinophils Absolute Auto 0.1 X10*3/uL (0.0-0.4); Eosinophils Percent Auto 1.7 % (0-4); Hematocrit 37.4 % (42.0-52.0); Imm Gran Abs Auto 0.04 X10*3/uL (0.00-0.03); Imm Gran Pct Auto 0.6 % (0.0-0.4); Lymphocytes Absolute Auto 1.3 X10*3/uL (1.2-4.9); Lymphocytes Percent Auto 19.9 % (20-40); Mean Corpuscular HGB Conc 32.1 g/dl (31.0-36.0); Mean Corpuscular Hemoglobin 29.8 pg (27.0-33.0); Mean Corpuscular Volume 92.8 fL (80.0-98.0); Monocytes Absolute Auto 0.6 X10*3/uL (0.1-1.2); Monocytes Percent Auto 8.9 % (2-11); Neutrophils Absolute Auto 4.4 x10*3/uL (2.0-8.3); Neutrophils Percent Auto 68.4 % (45-73); Platelet Count 239 X10*3/uL (160-400); Red Blood Count 4.03 X10*6/uL (4.60-5.80); Red Cell Distribution Width 14.6 % (11.0-16.0); White Blood Count 6.4 X10*3/uL (4.8-10.8)
[2023-09-04 08:34] LABS: Appearance Urine Clear; Color Urine Yellow; Glucose Urine UA Negative (Negative); Leukocyte Esterase Urine Negative (Negative); Nitrite Urine Negative (Negative); Specific Gravity - Urine 1.015 (1.005-1.025); Urine Blood Negative (Negative); Urine Ketones Negative (Negative); Urine Protein Negative (Neg-Trace)
[2023-09-04 08:58] LABS: Alanine Aminotransferase 13 U/L (0-40); Albumin Level 3.5 g/dL (3.5-5.0); Alkaline Phosphatase 65 U/L (39-117); Anion Gap 12 (12-20); Aspartate Amino Transferase 12 U/L (5-37); Bilirubin Total 0.3 mg/dL (0.0-1.0); Blood Urea Nitrogen 23 mg/dL (9-16); Calcium 9.7 mg/dL (8.4-10.2); Carbon Dioxide 26 mmol/L (22-29); Chloride 109 mmol/L (96-108); Cholesterol 155 mg/dL (<200); Estimated Glomerular Filt Rate 54; Glucose Fasting 111 mg/dL (60-99); HDL Cholesterol 48 mg/dL (>40); LDL Cholesterol Calculated 98 mg/dL (<100); Potassium 5.6 mmol/L (3.3-5.1); Sodium 141 mmol/L (135-145); Total Protein 7.5 g/dL (6.5-8.0); Triglycerides 46 mg/dL (<150)
[2023-09-04 09:13] LABS: Vitamin D 25-OH Total 44.4 ng/mL (>30)
[2023-09-05 13:28] LABS: Lyme Abs Screen <0.90 index
== END 2023-09-04 07:33 | disposition home or self-care (01) ==
LOC: HO.LAB 07:32
PROVIDERS: PCP Internal Medicine; Visit Provider Internal Medicine
DX: Z00.00 Encounter for general adult medical examination without abnormal findings (principal); R30.0 Dysuria; E78.00 Pure hypercholesterolemia, unspecified; I10 Essential (primary) hypertension; E55.9 Vitamin D deficiency, unspecified; T14.8XXA Other injury of unspecified body region, initial encounter; W57.XXXA Bitten or stung by nonvenomous insect and other nonvenomous arthropods, initial encounter; Y93.9 Activity, unspecified; Y92.9 Unspecified place or not applicable; Y99.9 Unspecified external cause status
CPT/HCPCS: 36415; 80053; 80061; 81003; 82306; 84443; 85025; 86617; 86618

== ENCOUNTER 2023-09-06 08:55 | Outpatient (AMB) | payer MEDICARE, SELFPAY ==
[2023-09-06 08:57] VITALS: BP 138/62; PULSE 76; O2SAT 96; BMI 26.3
--- NOTE | 2023-09-06 08:57 | A.OFFPC_ITS ---
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 Allergies No Known Allergies Allergy (Verified 09/06/23 09:19) Medication List - Last Reconciled 09/06/23 by Cade Enriquez MD amlodipine-benazepril 5-40 mg 1 cap PO DAILY 90 days apixaban (Eliquis) 2.5 mg PO BID 90 days ascorbic acid (vitamin C) (Vitamin C) 500 mg PO DAILY cholecalciferol (vitamin D3) 10 mcg PO DAILY multivitamin 1 tab PO DAILY vitamin E (dl, acetate) 450 mg PO DAILY Tobacco use date assessed: 09/06/23 Fall risk assessment: No Falls in past year Last assessed Fall Risk: 09/06/23 Dental Screening Dental Screen Date: 06/12/23 HPI HTN, hyperlipidemia, DVT of left LE, OA HPI Details Patient comes in today for his follow up visit States that he feels okay He denies any headaches or dizziness Denies any chest pains, no SOB No nausea/vomiting, no abdominal pain No change in bowel habits noted States that his low back pain has improved significantly with physical therapy and he continues to do the back exercises that he was taught regularly to help manage his back symptoms Had his follow up labs done a couple of days ago - to discuss his results [facility] Medical History Hypertension Diverticulosis Overweight (BMI 25.0-29.9) History of prostate cancer Renal cyst Vitamin D deficiency Osteoarthritis of left knee Impaired fasting glucose Pure hypercholesterolemia Benign essential hypertension Radiation cystitis Surgical History Hx of right inguinal hernia repair (02/16/23) History of ankle surgery History of colonoscopy History of meniscectomy of left knee (~06/05/12) Hx of prostatectomy Hx of umbilical hernia repair Family History Father Cancer Mother Colon cancer Social History Housing: House Alcohol intake: current Alcohol intake frequency: 0-2 drinks per day Alcohol type: beer Comment: . 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 How often do you have a drink containing alcohol?: 4 or more times a week 2. How many drinks containing alcohol do you have on a typical day when you are drinking?: 1 or 2 3. How often do you have six or more drinks on one occasion?: Never Total Score: 4 Score Reviewed/Action Taken: Yes ROSAMARIA-7 AMB Questionnaire ROSAMARIA-7 Date ROSAMARIA - 7 assessed: 09/06/23 Source: Developed by Drs. Jean Resendez, Larisa Alonzo, Jaspal Boyce and colleagues, with an educational cheryl from [employer]. Review of Systems Const Denies chills, Denies fatigue, Denies fever(s) and Denies headache(s) ENT Denies dysphagia, Denies dizziness, Denies otalgia, Denies headache(s), Denies neck pain, Denies odynophagia and Denies sore throat Card Denies chest pain, Denies rapid heart rate, Denies irregular heart rhythm, Denies palpitations and Denies dyspnea Resp Denies chest congestion, Denies cough, Denies dyspnea and Denies wheezing GI Denies abdominal pain, Denies constipation, Denies dysphagia, Denies heartburn, Denies diarrhea, Denies nausea, Denies odynophagia and Denies vomiting Denies hematuria, Denies difficulty urinating, Denies dysuria and Denies urinary frequency Musc Denies back pain, Denies arthralgias and Denies neck pain Skin/Breast Denies rash Neuro Denies dizziness and Denies headache(s) Endo Denies fatigue and Denies palpitations Aller/Immun Denies wheezing Physical exam (Primary Care) Vital Signs: Last Vital Signs Pulse 76 09/06/23 08:57 BP 138/62 09/06/23 08:57 Pulse Ox 96 09/06/23 08:57 Oxygen Delivery Method Room Air 09/06/23 08:57 BMI result Body Mass Index 26.3 Tobacco/Smoking Status: Tobacco use Status Tobacco use date assessed 09/06/23 09/06/23 09:03 Patient Tobacco Use Status Never used Tobacco 09/06/23 09:03 Thrive Assessment: Date of Thrive Assessment Date Thrive assessed 06/12/23 09/06/23 09:03 Const General: no acute distress and alert HENMT Ears: TM's normal bilaterally and EAC's normal Throat: Yes posterior oropharynx normal and Yes tonsils normal (no TP congestion) Neck Neck: Yes no lymphadenopathy and Yes supple Thyroid: Thyroid normal Resp Auscultation: clear to auscultation bilaterally, no rales and no wheezes Cardio Rate: regular rate Rhythm: regular rhythm Heart sounds: no murmurs GI Palpation (GI): Soft to palpation and nontender Auscultation: normal bowel sounds General: Yes no CVA tenderness Back/Spine/Pelvis Back: no CVA tenderness Thoracic/Lumbar Spine: lumbar spinal tenderness (mild) Skin Rashes: no rashes Extrem General: Yes no clubbing, cyanosis or edema Results Reviewed Results Reviewed: Laboratory Tests 09/04/23 09/04/23 07:45 07:46 WBC 6.4 Hgb 12.0 L Hct 37.4 L Plt Count 239 Sodium 141 Potassium 5.6 H Creatinine 1.28 Estimated GFR 54 Fasting Glucose 111 H Calcium 9.7 AST 12 ALT 13 Triglycerides 46 Cholesterol 155 LDL Cholesterol, Calc 98 HDL Cholesterol 48 25-OH Vitamin D Total 44.4 TSH 0.90 Ur Specific [place] 1.015 Urine Protein Negative Urine Glucose (UA) Negative Urine Blood Negative Urine Nitrite Negative Ur Leukocyte Esterase Negative Lyme Screen IgG & IgM <0.90 Assessment and Plan Assessment & Plan (1) Deep vein thrombosis (DVT) of left lower extremity: Code(s): I82.402 - Acute embolism and thrombosis of unspecified deep veins of left lower extremity Qualifiers: Affected thrombotic vein of extremity: femoral Chronicity: acute Qualified Code(s): I82.412 - Acute embolism and thrombosis of left femoral vein Plan: S/P IVC filter placement; filter was removed last year Venous doppler in April 2022 still showed (+) partially occlusive embolus in the left lower extremity involving the common femoral and femoral veins proximally Repeat venous doppler of the left lower extremity done last month (April 2023) still showed a 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 with interval resolution of the thrombus in the left femoral vein Will consider rechecking a venous doppler on him later this year or early next year for follow up Continue Apixaban 2.5 mg BID (2) Benign essential hypertension: Code(s): I10 - Essential (primary) hypertension Plan: Reinforced low sodium diet - goal is systolic BP of at least 140 to 150 mm Continue Amlodipine-Benazepril 5-40 mg QD (3) Pure hypercholesterolemia: Code(s): E78.00 - Pure hypercholesterolemia, unspecified Plan: Results of his labs done a couple of days ago reviewed and discussed with patient Reinforced low cholesterol diet His cholesterol numbers have been adequately controlled with diet modification alone Will recheck his labs and fasting lipids in 6 months for follow up (4) Impaired fasting glucose: Code(s): R73.01 - Impaired fasting glucose Plan: FBS is again elevated on his recent labs at 111 mg/dl Reinforced low calorie diet/exercise as tolerated HgbA1c was normal at 5.1% when previously checked Will continue to monitor this regularly (5) Dupuytren's contracture of left hand: Code(s): M72.0 - Palmar fascial fibromatosis [Dupuytren] Plan: Follow up with orthopedics as scheduled States that he has been advised that surgery is an option but he may be incapacitated for a while following surgery Patient has declined surgical intervention and states that he has learned to live with his pain (6) Osteoarthritis of left knee: Comment: S/P partial medial meniscectomy and chondroplasty of the medial femoral condyle of the left knee by Dr. Russ back on 06/05/2012 Code(s): M17.12 - Unilateral primary osteoarthritis, left knee Qualifiers: Osteoarthritis type: primary Qualified Code(s): M17.12 - Unilateral primary osteoarthritis, left knee Plan: Continue Ibuprofen PRN for knee pain Follow up with orthopedics as scheduled or as needed (7) Lumbar spondylosis: Code(s): M47.816 - Spondylosis without myelopathy or radiculopathy, lumbar region Plan: Reinforced activity and weight lifting restrictions States that his low back pain has improved significantly with physical therapy (referred by pain management) and he continues to do his back exercises regularly to manage his back symptoms Follow up with pain management as scheduled or as needed (8) Radiation cystitis: Code(s): N30.40 - Irradiation cystitis without hematuria Plan: Cystoscopy done last year confirmed findings of radiation cystitis, which is most likely the source of his recurrent hematuria Patient underwent hyperbaric oxygen chamber Tx last year and felt that this helped with his hemorrhagic cystitis His recent urinalysis showed NO presence of RBCs in his urine Follow up with urology as scheduled (9) Anemia: Code(s): D64.9 - Anemia, unspecified Qualifiers: Anemia type: unspecified type Qualified Code(s): D64.9 - Anemia, unspecified Plan: Patient is advised that his anemia appears to have progressed slightly on his recent labs - etiology is unclear at this time Will have him recheck his CBC (for follow up) and include some anemia work ups in 1 month (10) Hyperkalemia: Code(s): E87.5 - Hyperkalemia Plan: Patient is also advised that his serum potassium level has increased again on his recent labs States that he does drink some type of energy drinks before he starts working out and he is advised to look into the ingredients of what he is drinking to make sure that it is not loaded with potassium Will have him recheck his serum electrolytes (and potassium) in 1 month for follow up Advised that if his serum potassium continues to stay elevated and goes up further, we may have to consider taking him off the Benazepril component of his BP Rx (11) History of prostate cancer: Comment: S/P radiation Tx years ago Code(s): Z85.46 - Personal history of malignant neoplasm of prostate Plan: S/P radiation Tx Follow up with urology as scheduled for continuing surveillance (12) Vitamin D deficiency: Code(s): E55.9 - Vitamin D deficiency, unspecified Plan: Corrected - continue OTC Vitamin D 400 units QD Will continue to monitor his Vitamin D level regularly (13) Renal cyst: Comment: Repeat/follow up US of his right renal cyst (in the upper pole) done back in September 2017 showed a slight increase in the exophytic mass/cyst in the upper pole of the right kidney MRI done in March 2018 showed (+) multiple bilateral renal simple cysts, with an exophytic complex cystic mass at the upper pole of the right kidney corresponding to the US findings Follow up US done in August 2019 showed no change in the complex cyst at the upper pole of the right kidney - plan to repeat US again in 1 year for follow up Code(s): N28.1 - Cyst of kidney, acquired Plan: Will continue to monitor and observe for now Follow up with urology as scheduled (14) Overweight (BMI 25.0-29.9): Code(s): E66.3 - Overweight Plan: Reinforced diet/exercise as tolerated/lose weight Plan To return in 6 months for his next annual physical examination Orders: Orders Complete Blood Count Auto Diff 1 Month D64.9 - Anemia, unspecified, E87.5 - Hyperkalemia IRON PROFILE 1 Month D50.9 - Iron deficiency anemia, unspecified, D64.9 - Anemia, unspecified, E87.5 - Hyperkalemia Comprehensive Met. Panel 1 Month E87.5 - Hyperkalemia Lipid Panel 6 Months E78.00 - Pure hypercholesterolemia, unspecified, Z00.00 - Encounter for general adult medical examination without abnormal findings Vitamin D 25-OH Total 6 Months E55.9 - Vitamin D deficiency, unspecified, Z00.00 - Encounter for general adult medical examination without abnormal findings Hemoglobin A1c 6 Months R73.01 - Impaired fasting glucose, Z00.00 - Encounter for general adult medical examination without abnormal findings Vitamin B12 and Folate 1 Month D64.9 - Anemia, unspecified, E53.8 - Deficiency of other specified B group vitamins, E87.5 - Hyperkalemia Magnesium 1 Month E83.42 - Hypomagnesemia, E87.5 - Hyperkalemia Complete Blood Count Auto Diff 6 Months D64.9 - Anemia, unspecified, Z00.00 - Encounter for general adult medical examination without abnormal findings Comprehensive [place]. Panel Fast 6 Months E78.00 - Pure hypercholesterolemia, unspecified, Z00.00 - Encounter for general adult medical examination without abnormal findings TSH reflex Free T4 6 Months E78.00 - Pure hypercholesterolemia, unspecified, Z00.00 - Encounter for general adult medical examination without abnormal findings UA CC w/rflx Micro + Cult 6 Months R30.0 - Dysuria, Z00.00 - Encounter for general adult medical examination without abnormal findings Prostate Specific Antigen 6 Months N40.0 - Benign prostatic hyperplasia without lower urinary tract symptoms, Z00.00 - Encounter for general adult medical examination without abnormal findings Coding Level of Care Code Est Pt Level 4 (78454) Diagnoses Acute deep vein thrombosis (DVT) of femoral vein of left lower extremity I82.412 Affected thrombotic vein of extremity: femoral Chronicity: acute Benign essential hypertension I10 Pure hypercholesterolemia E78.00 Impaired fasting glucose R73.01 Dupuytren's contracture of left hand M72.0 Primary osteoarthritis of left knee M17.12 Osteoarthritis type: primary Lumbar spondylosis M47.816 Radiation cystitis N30.40 Anemia, unspecified type D64.9 Anemia type: unspecified type Hyperkalemia E87.5 History of prostate cancer Z85.46 Vitamin D deficiency E55.9 Renal cyst N28.1 Overweight (BMI 25.0-29.9) E66.3
== END 2023-09-06 09:45 | disposition home or self-care (01) ==
PROVIDERS: PCP Internal Medicine; Visit Provider Internal Medicine
DX: I82.412 Acute embolism and thrombosis of left femoral vein (principal); I10 Essential (primary) hypertension; E78.00 Pure hypercholesterolemia, unspecified; R73.01 Impaired fasting glucose; M72.0 Palmar fascial fibromatosis [Dupuytren]; M17.12 Unilateral primary osteoarthritis, left knee; M47.816 Spondylosis without myelopathy or radiculopathy, lumbar region; N30.40 Irradiation cystitis without hematuria; D64.9 Anemia, unspecified; E87.5 Hyperkalemia; Z85.46 Personal history of malignant neoplasm of prostate; E55.9 Vitamin D deficiency, unspecified; N28.1 Cyst of kidney, acquired; E66.3 Overweight
CPT/HCPCS: 99214

== ENCOUNTER 2023-10-10 07:48 | Outpatient (REF) | payer MEDICARE, SELFPAY ==
[2023-10-10 08:02] LABS: MANUAL DIFF FLAG NO
[2023-10-10 08:45] LABS: Basophils Percent Auto 0.2 % (0-2); Eosinophils Absolute Auto 0.1 X10*3/uL (0.0-0.4); Eosinophils Percent Auto 1.6 % (0-4); Hematocrit 32.2 % (42.0-52.0); Hemoglobin 10.3 g/dl (14.0-18.0); Imm Gran Abs Auto 0.05 X10*3/uL (0.00-0.03); Imm Gran Pct Auto 0.6 % (0.0-0.4); Lymphocytes Absolute Auto 1.6 X10*3/uL (1.2-4.9); Lymphocytes Percent Auto 18.7 % (20-40); Mean Corpuscular Hemoglobin 28.4 pg (27.0-33.0); Mean Corpuscular Volume 88.7 fL (80.0-98.0); Mean Platelet Volume 7.9 fL (9.4-12.4); Monocytes Absolute Auto 0.7 X10*3/uL (0.1-1.2); Neutrophils Percent Auto 70.9 % (45-73); Platelet Count 389 X10*3/uL (160-400); Red Blood Count 3.63 X10*6/uL (4.60-5.80); Red Cell Distribution Width 15.1 % (11.0-16.0); White Blood Count 8.5 X10*3/uL (4.8-10.8)
[2023-10-10 09:07] LABS: Appearance Urine Clear; Color Urine Yellow; Glucose Urine UA Negative (Negative); Leukocyte Esterase Urine Negative (Negative); Nitrite Urine Negative (Negative); Specific Gravity - Urine 1.015 (1.005-1.025); Urine Blood Negative (Negative); Urine Ketones Negative (Negative); Urine Protein Negative (Neg-Trace)
[2023-10-10 09:08] LABS: Alanine Aminotransferase 57 U/L (0-40); Alkaline Phosphatase 67 U/L (39-117); Anion Gap 10 (12-20); Aspartate Amino Transferase 41 U/L (5-37); Bilirubin Total 0.3 mg/dL (0.0-1.0); Blood Urea Nitrogen 26 mg/dL (9-16); Carbon Dioxide 28 mmol/L (22-29); Chloride 106 mmol/L (96-108); Estimated Glomerular Filt Rate 55; Glucose Random 98 mg/dL (60-115); Iron 30 mcg/dL (45-160); Magnesium 1.9 mg/dL (1.6-2.6); Percent Iron Saturation 17 % (15-50); Potassium 5.3 mmol/L (3.3-5.1); Sodium 139 mmol/L (135-145); Total Iron Binding Capacity 176 mcg/dL (228-428); Total Protein 8.2 g/dL (6.5-8.0); Unsaturated Iron Binding 146 ug/dL
[2023-10-10 09:43] LABS: Vitamin B12 326 pg/mL (200-900)
== END 2023-10-10 07:49 | disposition home or self-care (01) ==
LOC: HO.LAB 07:48
PROVIDERS: PCP Internal Medicine; Visit Provider Internal Medicine
DX: D64.9 Anemia, unspecified (principal); E78.5 Hyperlipidemia, unspecified; R30.0 Dysuria; D50.9 Iron deficiency anemia, unspecified; E53.8 Deficiency of other specified B group vitamins; E83.42 Hypomagnesemia
CPT/HCPCS: 36415; 80053; 81003; 82607; 82746; 83540; 83735; 85025

== ENCOUNTER 2023-12-09 09:40 | Outpatient (REF) | payer MEDICARE, SELFPAY ==
[2023-12-09 11:34] LABS: Prostate Specific Antigen < 0.10 ng/mL (<0.05-4.0)
== END 2023-12-09 09:41 | disposition home or self-care (01) ==
LOC: HO.LAB 09:40
PROVIDERS: PCP Internal Medicine; Visit Provider Urology
DX: C61 Malignant neoplasm of prostate (principal); Z12.5 Encounter for screening for malignant neoplasm of prostate
CPT/HCPCS: 36415; 84153

== ENCOUNTER 2023-12-13 11:23 | Outpatient (AMB) | payer MEDICARE, SELFPAY ==
--- NOTE | 2023-12-13 11:23 | A.OFFVIS_ITS ---
Intake Visit Reasons: 6m/PSA Intake Note: Patient is Present for Telephone Follow Up PSA Urology Med: Vitamin E Antibiotic Allergy:nONE Blood Thinner: Eliquis Registered Nurse Required: No Accompanied by: Self / Same As Patient Allergies No Known Allergies Allergy (Verified 12/13/23 11:24) Medication List - Last Reconciled 12/13/23 by Ruperto Trevino MD amlodipine-benazepril 5-40 mg 1 cap PO DAILY 90 days apixaban (Eliquis) 2.5 mg PO BID 90 days ascorbic acid (vitamin C) (Vitamin C) 500 mg PO DAILY cholecalciferol (vitamin D3) 10 mcg PO DAILY multivitamin 1 tab PO DAILY vitamin E (dl, acetate) 450 mg PO DAILY HPI Comments Details: Charles is a very pleasant male. He is a patient of Dr. Enriquez. He is seen for the following urologic conditions - prostate cancer - radiation cystitis - renal cyst Telemedicine Evaluation 15 min Consultation Doximity [place] Video attempted Three pads per day Prior discussion regarding sling versus artificial sphincter versus penile clamp Information provided regarding marlintop He is not really interested No bleeding since last appointment 12 month follow-up PSA Continue on vitamin E Prostate cancer 2004 - radical prostatectomy [facility]. Postprocedure radiation required 2009 Laboratories - 10/04 PSA < 0.1, <12/05 <0.1, 06/08 <0.1, 05/09 <0.1, 11/06 <0.1, 05/10 <0.1, 12/08 <0.1 Renal cyst Followed by MRI. Complex cyst right side. No enhancement. Yearly ultrasound. Imaging - 09/03 ULTRASOUND RIGHT COMPLEX CYST 7 X 8 CM, left 2 simple cysts Radiation cystitis Diagnosis cystoscopy June 2020 Hemorrhagic cystitis responded to tranexamic acid with vitamin E Continue with vitamin-E Cytology 06/07 NAD Cystoscopy 08/06 hemorrhagic cystitis and radiation cystitis lower half bladder 01/06 episode of hematuria retention and Morales catheter placed 01/06 underwent hyperbaric oxygen Urinary leakage 3 pads a day [facility] Medical History Hypertension Diverticulosis Overweight (BMI 25.0-29.9) History of prostate cancer Renal cyst Vitamin D deficiency Osteoarthritis of left knee Impaired fasting glucose Pure hypercholesterolemia Benign essential hypertension Radiation cystitis Surgical History Hx of right inguinal hernia repair (02/16/23) History of ankle surgery History of colonoscopy History of meniscectomy of left knee (~06/05/12) Hx of prostatectomy Hx of umbilical hernia repair Family History Father Cancer Mother Colon cancer Social History Housing: House Alcohol intake: current Alcohol intake frequency: 0-2 drinks per day Alcohol type: beer Comment: . 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 Cognitive needs: No Hearing needs: No Vision needs: Yes Review of Systems Const All systems reviewed & are unremarkable except as noted in HPI and below Reports no additional complaints Resp Reports no additional complaints GI Reports no additional complaints Reports as per HPI Musc Reports no additional complaints Physical Exam Telemedicine evaluation Appropriate responses Regular breathing rate and rhythm HEENT Head: Yes normal to inspection Ears: hearing grossly normal bilaterally Eyes General: appearance normal, both eyes and all related structures Neck Neck: Yes normal visual inspection Chest Chest palpation & inspection: normal inspection of the chest Resp Effort & Inspection: normal respiratory effort and able to speak in complete sentences Telehealth Telehealth Telehealth Platform: [employer] Expert Location of provider rendering services: practice address Location of patient: address on file Patient Identification confirmed using: Name, : Yes Telehealth method: video Patient verbally consented to treatment: Yes Patient verbally consented to billing insurance company: Yes Patient informed of any privacy concerns related to visit: Yes Minutes spent on Phone/Video with Pt.: 15 Assessment & Plan Assessment & Plan (1) Radiation cystitis: Code(s): N30.40 - Irradiation cystitis without hematuria Category: Medical (2) Hemorrhagic cystitis: Code(s): N30.91 - Cystitis, unspecified with hematuria Category: Medical (3) Prostate cancer: Comment: Radical prostatectomy 2003, external beam radiation 2009 Code(s): C61 - Malignant neoplasm of prostate Category: Medical Plan Twelve month Orders: Orders Prostate Specific Antigen 364 Days C61 - Malignant neoplasm of prostate Patient Instructions: Imaging studies, laboratory and physical exam results were discussed and reviewed in detail. No major barriers to patient understanding were identified. An opportunity to ask questions regarding the treatment plan was provided. All questions were answered. The patient expressed understanding and agreement with the above treatment plan. The patient is aware they should contact our office by phone for worsening of their current condition or the appearance of new urologic symptoms. Compliance is encouraged with any medications and followup testing that is ordered. It is a privilege to participate in the urologic care of your patient. If you have any questions or concerns regarding treatment for the above conditions, or other urologic issues, please do not hesitate to contact me. The office telephone contact is [phone]. This note is constructed using voice recognition software. While every effort has been made to ensure accuracy customer service security officer errors may have been included. Yours sincerely, Dr Ruperto Trevino MD, [facility] - Urology Providers of Expert, Compassionate Care for the Genitourinary System Coding Level of Care Code Tele Est Pt Level 3 (92282) Diagnoses Radiation cystitis N30.40 Hemorrhagic cystitis N30.91 Prostate cancer C61
== END 2023-12-13 12:30 | disposition home or self-care (01) ==
LOC: HO.HUSH 11:23
PROVIDERS: PCP Internal Medicine; Visit Provider Urology
DX: N30.40 Irradiation cystitis without hematuria (principal); N30.91 Cystitis, unspecified with hematuria; C61 Malignant neoplasm of prostate
CPT/HCPCS: 99213

== ENCOUNTER → 2023-12-13 11:23 | Outpatient (BNVA) | payer MEDICARE, SELFPAY | PROVIDERS: PCP Internal Medicine; Visit Provider Urology ==

== ENCOUNTER 2023-12-18 09:02 | Inpatient (IN) | payer MEDICARE, SELFPAY ==
--- NOTE | 2023-12-18 | ECG_ITS ---
Test Reason : TACHYCARDIA Blood Pressure : / mmHG Vent. Rate : 119 BPM Atrial Rate : 119 BPM P-R Int : 150 ms QRS Dur : 090 ms QT Int : 320 ms P-R-T Axes : 044 -66 034 degrees QTc Int : 450 ms Sinus tachycardia Pulmonary disease pattern Left anterior fascicular block Abnormal ECG When compared with ECG of 24-MAY-2002 08:10, Vent. rate has increased BY 42 BPM Referred By: Generic ED Physician Electronically Signed By:KARI HUFF
--- NOTE | ~2023-12-18 | CT_ITS ---
EXAMINATION: CT ABDOMEN AND PELVIS WITH CONTRAST CLINICAL INFORMATION: Kidney hemorrhage COMPARISON: CT scan of chest, abdomen and pelvis on 12/18/2023 TECHNIQUE: Multidetector volumetric images were obtained from the superior aspect of the liver through the pubic symphysis following administration 85 mL of Omnipaque 350 intravenous contrast. Sagittal and coronal reformatted images were obtained on the technologist's workstation. Oral contrast: No This CT examination was performed using dose optimization techniques as appropriate, variously including the following: *Automated exposure control *Adjustment of mA and/or kV according to patient size (this includes techniques or standardized protocols for targeted exams where dose is matched to indication/reason for exam; i.e. extremities or head) *Use of iterative reconstruction technique DLP: 448 mGy-cm FINDINGS: LUNG BASES: Extensive posterior right lower lobe airspace disease and moderate right pleural effusion are partially visualized. LIVER: A tiny simple cyst is seen in left hepatic lobe segment 4B measuring 0.8 cm in diameter, mean attenuation of 20 Hounsfield units. GALLBLADDER AND BILIARY TREE: Gallbladder appears unremarkable without calcified stones. Common bile duct is not dilated. SPLEEN: The spleen is normal in size without focal lesion. PANCREAS: The pancreas appears unremarkable. ADRENAL GLANDS: Right adrenal gland remains obscured by the multiloculated fluid collection. This renogram is normal in shape and size. KIDNEYS: The right kidney is completely replaced by a multiseptated fluid collection with enhancing intervening residual renal cortical tissue or septation. A mid right renal oval-shaped enhancing lesion is seen measuring 1.0 cm in AP diameter, 1.4 cm in width, 1.3 cm in vertical height. At the posterior inferior portion of the deformed right kidney, crescent shape fatty components are present, mean attenuation of -48 Hounsfield units. A persistent bandlike calcification measuring 1.0 cm in oblique length is seen in right upper kidney. There are persistent marked right renal pelviectasis and diffuse moderate right hydroureter with circumferential mural thickening and enhancement, periureteric inflammatory stranding. The remaining left kidney is normal in size and stable multiple simple cysts, measuring up to 3.5 cm in diameter protruding from the left lateral mid renal cortex, for which no follow-up imaging is recommended. BOWELS: There is no abnormal dilatation of the large and small bowel loops. Multiple diverticula are seen in the descending colon without inflammatory changes. RETROPERITONEUM: Loculated crescent shape mildly rim-enhancing right renal fluid collection extends along the medial and posterior right pararenal fascia, effacing the right psoas muscle. At lower L3 level, posterior border of right psoas muscle a septated rim-enhancing lesion is seen measuring 2.1 cm in AP diameter, 1.7 cm in width, 2.7 cm in vertical height. Several upper retrocaval lymph nodes are seen are seen with the largest lymph nodes present at L2 level, measuring up to 1.3 cm in short axis, series 3 image #36, unchanged. BLOOD VESSELS: Abdominal aorta is normal in size with scattered atherosclerotic calcifications and smoothly patent. Bilateral renal veins and single renal arteries show normal contrast enhancement and smoothly patent. ABDOMINAL WALL: Midline surgical mesh is present. No recurrent umbilical or ventral abdominal hernia is seen. PERITONEUM: There was no ascites. There were no abdominal peritoneal inflammatory changes seen. No free peritoneal air was seen. No abnormally enlarged mesenteric lymph nodes are found. BONES: Advanced L4-L5 and L5-S1 degenerative lumbar disc disease is present. No fracture or dislocation. No focal bone lesion diagnostic of metastatic disease could be seen in the lumbar region. EXAMINATION: CT pelvis. FINDINGS: URINARY BLADDER: Urinary bladder fills normally with urine. Multiple relatively thickened right ureter with enhancing thickened wall is seen, returns to normal caliber at 2.5 cm from right ureterovesical junction. BOWELS: There is no abnormal dilatation of the large and small bowel loops. Normal appendix is seen projecting inferior to the cecum. Multiple diverticula are seen in the descending and sigmoid colon without inflammatory changes. GENITAL ORGANS: Seminal vesicles and Prostate gland are not visualized. LYMPH NODES: No abnormally enlarged iliac or inguinal lymph nodes are seen. PERITONEUM: There is persistent small right and midline rectovesical pouch free fluid collection, mean attenuation of 5.9 Hounsfield units. No free peritoneal air are found in the pelvis. Unchanged small left inguinal hernia containing mesenteric fat is seen. Unchanged poorly demarcated low density tissue is seen in the right inguinal region measuring 2.0 cm in AP diameter, 2.8 cm in width, 2.8 cm in vertical height, mean attenuation of 21.7 Hounsfield units. BONES: No fracture or dislocation. No focal bone lesion diagnostic of metastatic disease could be seen in the pelvis. CT/CT abdomen pelvis w IV con IMPRESSION: 1. Unchanged markedly enlarged polycystic right kidney, with intervening enhancing renal cortical tissue, superior right renal calculus, marked right renal pelviectasis and moderate right hydroureter with mural thickening and enhancement, periureteric inflammatory stranding tapering to normal caliber at 2.5 cm proximal to the right ureterovesical junction, raising concern for hemorrhagic pyelonephritis and ureteritis. The current examination shows enhancing oval-shaped lesion in mid right kidney. 2. There is probable persistent extensive hemorrhage into the right renal cysts, obscured by enhancing renal parenchyma. 3. Unchanged extensive extrarenal loculated rim-enhancing fluid collections extending to the right pararenal fascia and right psoas muscle, compatible with extension of cystic fluid, hematoma or inflammatory phlegmon. At lower L3 level, posterior border of right psoas muscle a septated rim-enhancing lesion is seen, suggestive of abscess. 4. Unchanged left renal cortical simple cysts for which no follow-up imaging is recommended. 5. Unchanged small left inguinal hernia containing mesenteric fat. 6. Unchanged status post midline abdominal ventral herniorrhaphy, with surgical mesh in place. 7. Unchanged poorly demarcated low density tissue in the right inguinal region, could represent postherniorrhaphy seroma or granulation tissue. 8. Unchanged small right and midline rectovesical pouch free fluid collection. 9. Unchanged descending and sigmoid colon diverticulosis without inflammatory changes. 10. Unchanged extensive posterior right lower lobe airspace disease and moderate right pleural effusion. Fleischner guidelines were followed. Electronically signed by: Tonio Singh MD 12/19/2023 10:07 AM EDT
--- NOTE | ~2023-12-18 | US_ITS ---
PROCEDURE: Ultrasound-guided right thoracentesis HISTORY: Right pleural effusion SPECIMEN: A sample of pleural fluid was sent for analysis ACCESS: 5 Niue[place] Yueh catheter MEDICATIONS: 10 mL 1% lidocaine TECHNIQUE/FINDINGS Appropriate preprocedural clinical history and imaging studies were reviewed. The patient was brought to the department and placed in the seated position. Ultrasound images of the right thorax were obtained to localize a moderate pleural effusion. Permanent ultrasound images were saved. Risks and benefits and possible complications were discussed with the patient and consent form was signed. An area of the patient's right back was prepped and draped in usual sterile fashion. 10 mL of 1% lidocaine was used to obtain local anesthesia of the skin and deeper tissues. A standard small bore needle was introduced to sample pleural fluid and demonstrate a safe access route. A 5 Niuean Yueh catheter was then used to access the pleural cavity. 400 ml of yellow fluid was removed passively. The catheter was then removed. A dressing was applied. A postprocedure chest x-ray will be performed and will be dictated separately. There were no immediate complications. The procedure was performed by Balwinder Rizvi PA-C and supervised by Dr. Luz US/US thoracentesis IMPRESSION: Ultrasound-guided right thoracentesis Electronically signed by: Avi Luz MD 12/19/2023 03:40 PM EDT
--- NOTE | ~2023-12-18 | XR_ITS ---
EXAMINATION: XR CHEST CLINICAL INFORMATION: Status post right thoracentesis. COMPARISON: CT chest 01-08. X-ray chest 08/03/2021. TECHNIQUE: AP portable view of the chest was obtained. FINDINGS: Lungs are essentially clear. There is no evidence of pneumothorax. Minimal residual pleural fluid on the right. Mild linear scarring/atelectasis in the right perihilar region. The cardiac, hilar, and mediastinal contours are normal. There is no bony or soft tissue abnormality identified. XR/XR chest 1V IMPRESSION: Status post right thoracentesis without evidence of pneumothorax. No active lung disease. Electronically signed by: Avi Luz MD 12/19/2023 01:02 PM EDT
--- NOTE | ~2023-12-18 | FL_ITS ---
EXAMINATION: FLUOROSCOPY GUIDANCE FOR NEEDLE PLACEMENT CLINICAL INFORMATION: Stent placement COMPARISON: CT abdomen and pelvis 12/19/2023 TECHNIQUE: Fluoroscopy and spot films during cystoscopy FINDINGS: Catheters and wires are seen overlying the pelvis. FLUOROSCOPY TIME: 18 seconds DOSE AREA PRODUCT: not recorded FL/FL guidance in OR IMPRESSION: Fluoroscopy and spot views of the pelvis. Electronically signed by: Toi Yen MD 12/21/2023 12:11 AM EDT
--- NOTE | ~2023-12-18 | CT_ITS ---
EXAMINATION: CT CHEST ABDOMEN AND PELVIS CLINICAL INFORMATION: right flank pain, chastity. COMPARISON: Renal ultrasound August 2019 MRI of the abdomen March 2018 CT angiogram chest December 08, 2021 TECHNIQUE: CT scan of the chest, abdomen and pelvis was performed without contrast. Additional sagittal and coronal two-dimensional reconstruction imaging was obtained at the acquisition workstation. FINDINGS: CHEST: Lungs/pleural spaces: Small 6 mm nodule left lower lung on axial image 325 of series 6 unchanged. Additional adjacent calcified 3 mm nodule noted compatible with calcified granuloma. There is a moderate to large right pleural effusion not seen on prior CT. CARDIOVASCULAR: There is scattered calcification of the dorsal aorta and calcification of the coronary vessels. Lymph nodes: Normal. Esophagus: Normal. Thoracic inlet: Normal. Soft tissue and chest wall: Normal. Axillae: Normal. ABDOMEN AND PELVIS: Liver: Normal. Gallbladder and biliary tree: Normal. Pancreas: Normal. Spleen: Normal. Adrenal glands: Left adrenal gland normal. Right adrenal gland obscured by stranding in the surrounding soft tissues. See comment below. Kidneys and ureters: There is marked enlargement and heterogeneity of the right kidney, which is significantly larger than the left, and its borders are ill-defined. There is an additional heterogeneous density and stranding in the perinephric space. The kidney measures up to 16 cm craniocaudal, 11 centimeters transverse and 11 cm AP. In some areas there appears to be fluid fluid levels with areas of increased density adjacent to areas of hypodensity. There is a small linear focus of increased density in the upper portion of the kidney measuring less than 1 cm. There is also marked enlargement of the right psoas muscle, which is also heterogeneous. Multiple masses noted off the kidney likely reflect the multiple cysts noted on the prior MRI in 2018. These are not as well-defined as previous, presumably related to abovementioned findings within the kidney and surrounding soft tissues. The appearance is most consistent with intrarenal hemorrhage with hemorrhagic extension into the perinephric space and concomitant involvement/hemorrhage of the right iliopsoas muscle. Additionally, there is dilatation of most of the right ureter with sparing of the very distal portion of the ureter. There is slight increased density of the ureter. This is suspicious for additional hemorrhage extending along the ureter. Multiple simple cysts noted in the left kidney, otherwise unremarkable. No dilatation of the left collecting system. Bladder: Normal. PELVIC ORGANS: Normal. PERITONEAL CAVITY: No free fluid. MESENTERY/OMENTUM: Normal. GI TRACT (STOMACH, SMALL BOWEL, LARGE BOWEL): There is mass effect related to the enlarged right kidney and perinephric space displacing the colon anteriorly. Bowel otherwise unremarkable except for diverticulosis of the sigmoid colon without diverticulitis. Stomach normal. APPENDIX: Not visualized, but no inflammatory changes in the expected region of the appendix. LYMPH NODES: Scattered lymph nodes in the retroperitoneum not significantly enlarged. Likely reactive, measuring up to approximately 1 cm. VASCULAR: Scattered [id number] calcific atherosclerotic disease. ABDOMINAL WALL/SOFT TISSUES: Postsurgical changes in the abdominal wall midline. Increased density noted there. SKELETAL: Multilevel spondylosis of the visualized dorsal and lumbosacral spine. CT/CT abdomen pelvis wo IV con IMPRESSION: 1. Marked enlargement of the right kidney with heterogeneous density and stranding in the perinephric space. The appearance is most consistent with intrarenal hemorrhage with hemorrhagic extension or additional hemorrhagic involvement of or into the perinephric space and right psoas muscle. Etiology for the intrarenal hemorrhage not determined. The tiny focus of prominent increased density raises the question of very small focus of active arterial bleeding. 2. There is also dilatation of the right ureter with sparing of the very distal portion of the ureter. This likely reflects extension of hemorrhage into the ureter, perhaps causing partial obstruction. 3. Moderate to large right pleural effusion not seen on the prior CT of December 08, 2021. 4. Stable left lung dating back to November 2021. Given its stability over 2 years, no further follow-up is recommended. 5. Calcified granuloma unchanged. 6. Calcific atherosclerotic disease. 7. Spondylosis of the spine. Electronically signed by: Paco Hankins MD 12/18/2023 05:09 PM EDT
[2023-12-18 09:08] VITALS: BP 118/82; PULSE 127; RESP 18; TEMP 36.4; O2SAT 97; BMI 25.5
[2023-12-18 09:40] LABS: MANUAL DIFF FLAG NO
[2023-12-18 09:44] LABS: Basophils Percent Auto 0.1 % (0-2); Eosinophils Percent Auto 0.1 % (0-4); Hematocrit 31.7 % (42.0-52.0); Hemoglobin 10.4 g/dl (14.0-18.0); Imm Gran Abs Auto 0.13 X10*3/uL (0.00-0.03); Imm Gran Pct Auto 0.8 % (0.0-0.4); Lymphocytes Absolute Auto 0.9 X10*3/uL (1.2-4.9); Lymphocytes Percent Auto 5.3 % (20-40); Mean Corpuscular HGB Conc 32.8 g/dl (31.0-36.0); Mean Corpuscular Hemoglobin 29.1 pg (27.0-33.0); Mean Corpuscular Volume 88.5 fL (80.0-98.0); Mean Platelet Volume 7.7 fL (9.4-12.4); Monocytes Absolute Auto 0.6 X10*3/uL (0.1-1.2); Monocytes Percent Auto 3.7 % (2-11); Neutrophils Absolute Auto 14.9 x10*3/uL (2.0-8.3); Platelet Count 530 X10*3/uL (160-400); Red Blood Count 3.58 X10*6/uL (4.60-5.80); Red Cell Distribution Width 17.4 % (11.0-16.0); White Blood Count 16.6 X10*3/uL (4.8-10.8)
[2023-12-18 09:55] LABS: Alanine Aminotransferase 95 U/L (0-40); Albumin Level 2.8 g/dL (3.5-5.0); Alkaline Phosphatase 90 U/L (39-117); Anion Gap 15 (12-20); Aspartate Amino Transferase 97 U/L (5-37); Bilirubin Total 0.4 mg/dL (0.0-1.0); Blood Urea Nitrogen 36 mg/dL (9-16); Calcium 9.4 mg/dL (8.4-10.2); Carbon Dioxide 23 mmol/L (22-29); Chloride 103 mmol/L (96-108); Creatinine Clr Calc Pharmacy 33.6; Estimated Glomerular Filt Rate 37; Glucose Random 163 mg/dL (60-115); Potassium 4.1 mmol/L (3.3-5.1); Sodium 137 mmol/L (135-145); Total Protein 7.4 g/dL (6.5-8.0)
[2023-12-18 11:03] LABS: Influenza A PCR NEGATIVE (Negative); Influenza B PCR NEGATIVE (Negative); Resp Syncy Virus RNA Qual PCR NEGATIVE (Negative); SARS COV2 PCR INHOUSE NEGATIVE (Negative)
--- NOTE | 2023-12-18 15:11 | ED_ITS ---
HPI - Abdominal Pain General Chief Complaint: Abdominal Pain Stated Complaint: R flank pain Time Seen by Provider: 12/18/23 14:59 Source: patient, RN notes reviewed and old records reviewed Mode of arrival: ambulatory History of Present Illness ED Provider: Loren Martinez PA-C HPI narrative: 78-year-old male with past medical history hypertension, diverticulosis, HTN, HLD, presenting to the ED complaining of intermittent RLQ abdominal pain with associated nausea x few days with fever a few weeks ago. Denies fever at present, vomiting, diarrhea, constipation, dysuria/hematuria, flank pain Related Data Home Medications ?Medication ?Instructions ?Recorded ?Confirmed cholecalciferol (vitamin D3) 10 10 mcg PO DAILY 06/01/20 12/13/23 mcg (400 unit) tablet multivitamin 1 tab PO DAILY 06/01/20 12/13/23 ascorbic acid (vitamin C) 500 mg 500 mg PO DAILY 12/08/21 12/13/23 tablet (Vitamin C) Previous Rx's ?Medication ?Instructions ?Recorded vitamin E (dl, acetate) 450 mg 450 mg PO DAILY #90 caps 06/17/20 (1,000 unit) capsule apixaban 2.5 mg tablet (Eliquis) 2.5 mg PO BID 90 days #180 tabs 05/10/23 amlodipine 5 mg-benazepril 40 mg 1 cap PO DAILY 90 days #90 caps 05/26/23 capsule Allergies Allergy/AdvReac Type Severity Reaction Status Date / Time No Known Allergies Allergy Verified 12/18/23 09:11 Review of Systems Review of Systems Yes all other systems are reviewed and are negative Constitutional: Reports as per HPI [facility] Past Medical History Attestation statement: The following information was validated with the patient. Source: old records reviewed Medical History Hypertension Diverticulosis Overweight (BMI 25.0-29.9) History of prostate cancer Renal cyst Vitamin D deficiency Osteoarthritis of left knee Impaired fasting glucose Pure hypercholesterolemia Benign essential hypertension Radiation cystitis Surgical History Hx of right inguinal hernia repair (02/16/23) History of ankle surgery History of colonoscopy History of meniscectomy of left knee (~06/05/12) Hx of prostatectomy Hx of umbilical hernia repair Family History Family History Father Cancer Mother Colon cancer Social History Social History Housing: House Alcohol intake: current Alcohol intake frequency: 0-2 drinks per day Alcohol type: beer Comment: . 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 Cognitive needs: No Hearing needs: No Vision needs: Yes Physical Exam ED Vital Signs: Vital Signs - 24 hr 12/18/23 09:08 12/18/23 15:29 12/18/23 17:22 Temperature 97.5 F 98.8 F Pulse Rate 127 H 96 96 Respiratory Rate 18 16 18 Blood Pressure 118/82 129/64 110/56 L Pulse Oximetry 97 98 96 Oxygen Delivery Method Room Air Room Air 12/18/23 17:58 12/18/23 19:13 Temperature 99.3 F 98.5 F Pulse Rate 96 Respiratory Rate 16 Blood Pressure 117/49 L Pulse Oximetry 96 Oxygen Delivery Method Room Air BMI result Body Mass Index 25.5 Const General: cooperative, healthy appearing and no acute distress Orientation/consciousness: patient oriented x3 Limitations: no limitations HENMT Head: Yes normal to inspection and Yes atraumatic Ears: hearing grossly normal bilaterally General nose exam: Normal external nose present Face and sinus: Yes normal facial exam Eyes General: appearance normal, both eyes and all related structures EOM: EOMs intact bilaterally Neck Neck: Yes normal visual inspection and Yes no meningeal signs Resp Effort & Inspection: normal respiratory effort and no respiratory distress Auscultation: clear to auscultation bilaterally Cardio Rate: regular rate Heart sounds: S1 normal heart sound present and S2 normal heart sound present GI Inspection: Yes normal to inspection Palpation (GI): Soft to palpation, Tenderness to palpation present (GI) in the RLQ; with no rebound tenderness, no guarding and not rigid General: Yes no CVA tenderness Back/Spine/Pelvis Back: no CVA tenderness Skin Rashes: no rashes Wounds: no wounds Neuro General: patient oriented x3, tone normal and no meningeal signs Cranial nerves: Yes CN's II-XII intact bilaterally Gait exam (Neuro): Normal gait present Extrem General: Yes normal to inspection Course Course Course Narrative: -sepsis protocol initiated immediately after this parts data writer evaluated patient in the main ED. -152--leukocytosis of 16.6 > infection suspected. Lactic/blood cultures and empiric IV antibiotics ordered. - +MARYSE with BUN of 36, creatinine 1.78 -AST/ALT acute on chronically elevated -viral studies negative -official CT read back however incoherent, [facility] contacted. -153-- ED care transferred to [facility] pending CT's and anticipated admission Reevaluation(s) Reevaluation #1: I reviewed the below abnormal CT findings with my attending Dr. Miller. Patient has a history of complex R renal cyst receiving yearly ultrasounds (follows Dr. 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 He denies any recent trauma, fall, use of anticoagulants. When asked, he states that the right lower quadrant pain and his nausea has been present for a few days. Admits to being febrile on a single occasion approximately 3 weeks ago; 101. Denies any known further fevers. However he does admit to occasional chills and night sweats. He was tachycardic on arrival, remains in the 90s now, rectal temperature was obtained to assure afebrile; 99.3. On review of his medication records he is taking Eliquis 2.5 mg twice daily secondary to DVT of the left lower extremity. Consulting with Urology, Dr. Gilberto Fowler who reviewed his chart and imaging, at this time etiology of hemorrhage is unclear, repeating CBC to assure counts are stable and no progressive anemia, does not feel that he requires any emergent procedure, recommends admission to medicine service patient will have Urology consultation tomorrow. He does have a moderate to large right pleural effusion seen on CT as well, however he is not hypoxic, in no respiratory distress, no increased work of breathing. CT/CT chest wo IV con IMPRESSION: 1. Marked enlargement of the right kidney with heterogeneous density and stranding in the perinephric space. The appearance is most consistent with intrarenal hemorrhage with hemorrhagic extension or additional hemorrhagic involvement of or into the perinephric space and right psoas muscle. Etiology for the intrarenal hemorrhage not determined. The tiny focus of prominent increased density raises the question of very small focus of active arterial bleeding. 2. There is also dilatation of the right ureter with sparing of the very distal portion of the ureter. This likely reflects extension of hemorrhage into the ureter, perhaps causing partial obstruction. 3. Moderate to large right pleural effusion not seen on the prior CT of December 08, 2021. 4. Stable left lung dating back to November 2021. Given its stability over 2 years, no further follow-up is recommended. 5. Calcified granuloma unchanged. 6. Calcific atherosclerotic disease. 7. Spondylosis of the spine. Time: 18:02 Medical Decision Making Medical Decision Making MDM Narrative: 78-year-old male with past medical history hypertension, diverticulosis, HTN, HLD, presenting to the ED complaining of intermittent RLQ abdominal pain with associated nausea x few days with fever a few weeks ago. On exam initially tachycardic, NAD, nontoxic appearing, abdomen soft with RLQ tenderness, no rebound or guarding, no CVAT. Concern for appendicitis vs renal stone vs pyelo vs colitis. Lower suspicion for testicular torsion, cholecystitis/lithiasis or pancreatitis. Low suspicion for severe sepsis at this time Plan: Labs, UA, CT ordered in triage Please refer to course for remaining clinical decision making, interpretation of labs/imaging results, and discussions with consultants and/or family members. Differential Diagnosis Differential Diagnoses: The differential diagnosis associated with the presentation includes As above Admission/Observation Consideration of admission/observation: Escalation of care including admission/observation considered Lab Data MDM Lab Attestation statement: I reviewed the patient's lab results. 12/18/23 19:19 12/18/23 09:23 Labs: Lab Results 12/18/23 12/18/23 12/18/23 Range/Units 09:23 15:43 19:19 WBC 16.6 H 16.0 H (4.8-10.8) X10*3/uL RBC 3.58 L 3.34 L (4.60-5.80) X10*6/uL Hgb 10.4 L 9.7 L (14.0-18.0) g/dl Hct 31.7 L 29.7 L (42.0-52.0) % MCV 88.5 88.9 (80.0-98.0) fL MCH 29.1 29.0 (27.0-33.0) pg MCHC 32.8 32.7 (31.0-36.0) g/dl RDW 17.4 H 17.6 H (11.0-16.0) % Plt Count 530 H D 417 H (160-400) X10*3/uL MPV 7.7 L 7.6 L (9.4-12.4) fL Immature Gran % (Auto) 0.8 H 0.5 H (0.0-0.4) % Neut % (Auto) 90.0 H 85.9 H (45-73) % Lymph % (Auto) 5.3 L 7.9 L (20-40) % [place] % (Auto) 3.7 5.4 (2-11) % Eos % (Auto) 0.1 0.2 (0-4) % Baso % (Auto) 0.1 0.1 (0-2) % Lymph # (Auto) 0.9 L 1.3 (1.2-4.9) X10*3/uL [place] # (Auto) 0.6 0.9 (0.1-1.2) X10*3/uL Eos # (Auto) 0.0 0.0 (0.0-0.4) X10*3/uL Baso # (Auto) 0.0 0.0 (0.0-0.2) X10*3/uL Abs Immat Gran (auto) 0.13 H 0.08 H (0.00-0.03) X10*3/uL Absolute Neuts (auto) 14.9 H 13.8 H (2.0-8.3) x10*3/uL Absolute Nucleated RBC 0.000 0.000 (0.0-0.012) X10*3/uL Nucleated RBC % (auto) 0.0 0.0 (0.0-0.2) /100WBC Sodium 137 (135-145) mmol/L Potassium 4.1 D (3.3-5.1) mmol/L Chloride 103 (96-108) mmol/L Carbon Dioxide 23 (22-29) mmol/L Anion Gap 15 (12-20) BUN 36 H (9-16) mg/dL Creatinine 1.78 H (0.5-1.4) mg/dL Estim Creat Clear Calc 33.6 Estimated GFR 37 Random Glucose 163 H (60-115) mg/dL Lactic Acid 1.3 (0.5-2.0) mmol/L Calcium 9.4 (8.4-10.2) mg/dL Magnesium 2.2 (1.6-2.6) mg/dL Total Bilirubin 0.4 (0.0-1.0) mg/dL AST 97 H (5-37) U/L ALT 95 H (0-40) U/L Alkaline Phosphatase 90 (39-117) U/L Total Protein 7.4 (6.5-8.0) g/dL Albumin 2.8 L (3.5-5.0) g/dL Lipase 34 (8-78) U/L Urine Color Yellow Urine Appearance Clear Urine pH 5.0 (5.0-9.0) Ur Specific [place] 1.020 (1.005-1.025) Urine Protein Trace (Neg-Trace) mg/dL Urine Glucose (UA) Negative (Negative) mg/dL Urine Ketones Negative (Negative) mg/dL Urine Blood Negative (Negative) Urine Nitrite Negative (Negative) Ur Leukocyte Esterase Negative (Negative) Influenza Type A (PCR) NEGATIVE (Negative) Influenza Type B (PCR) NEGATIVE (Negative) RSV RNA Qual (PCR) NEGATIVE (Negative) SARS-CoV-2 RNA (RT-PCR) NEGATIVE (Negative) Independent Interpretation I performed an independent interpretation of an: CT Scan Radiology Impression Discussion of test interpretation with radiology: I have reviewed the radiologist's reading. Independent Historian Clinical information obtained from an independent historian. History obtained from or confirmed by: Spouse External Record Review External record reviewed: Inpatient record, Office record, Outpatient record, Prior outpatient labs, Prior outpatient radiology, Primary care record and Outside ED record Tests considered The following testing was considered but not selected: As above Prescription Management I considered prescription management with: Pain Medication and Antibiotic Medications Administered Discontinued Medications Generic Name Dose Route Start Last Admin Trade Name Freq PRN Reason Stop Dose Admin Sodium Chloride 1,000 mls @ 999 mls/hr 12/18/23 15:15 12/18/23 19:21 Ns IV 09/02/24 16:15 Infused .Q1H1M KINSEY Infusion Ceftriaxone Sodium 1 gm/ 50 mls @ 100 mls/hr 12/18/23 15:17 12/18/23 19:21 Sodium Chloride IV 12/18/23 15:46 Infused ONCE ONE Infusion Critical Care Time Critical Care Time Critical Care Time: Yes Total Critical Care Time: 45 Attestation: I have personally provided critical care time exclusive of time spent on separately billable procedures. Time includes review of lab data, radiology results, discussion with consultants, and monitoring for potential decompensation. Intervention performed as documented. Discharge Plan Discharge Clinical Impression: Renal hemorrhage, right, Pleural effusion, right, Sepsis Patient Disposition: Still a Patient Prescriptions: No Action Eliquis 2.5 mg tablet 2.5 mg PO BID 90 Days Qty: 180 3RF amlodipine-benazepril 5-40 mg capsule 1 cap PO DAILY 90 Days Qty: 90 3RF ascorbic acid (vitamin C) [Vitamin C] 500 mg Tablet 500 mg PO DAILY cholecalciferol (vitamin D3) 10 mcg (400 unit) tablet 10 mcg PO DAILY multivitamin Tablet 1 tab PO DAILY vitamin E (dl, acetate) 450 mg (1,000 unit) capsule 450 mg PO DAILY Qty: 90 1RF Print Language: Nepali
[2023-12-18 15:29] VITALS: BP 129/64; PULSE 96; RESP 16; O2SAT 98
[2023-12-18 15:52] LABS: Appearance Urine Clear; Color Urine Yellow; Glucose Urine UA Negative (Negative); Leukocyte Esterase Urine Negative (Negative); Nitrite Urine Negative (Negative); Urine Blood Negative (Negative); Urine Ketones Negative (Negative); Urine Protein Trace mg/dL (Neg-Trace)
[2023-12-18] MEDS: cefTRIAXone sodium 1 GM in 0.9 % Sodium Chloride 50 ML IV (15:54)
[2023-12-18] MEDS: 0.9 % Sodium Chloride 1,000 ML 999 ML IV (15:54)
[2023-12-18 16:02] LABS: Lactic Acid 1.3 mmol/L (0.5-2.0)
[2023-12-18 16:08] LABS: Lipase 34 U/L (8-78); Magnesium 2.2 mg/dL (1.6-2.6)
[2023-12-18 17:22] VITALS: BP 110/56; PULSE 96; RESP 18; TEMP 37.1; O2SAT 96
[2023-12-18 17:58] VITALS: TEMP 37.4
[2023-12-18 19:13] VITALS: BP 117/49; PULSE 96; RESP 16; TEMP 36.9; O2SAT 96
--- NOTE | 2023-12-18 19:20 | MHC.EDTECH ---
This pct assumed care of patient at 1900 ,vitals taken and cbc drawn and sent to lab .
--- NOTE | 2023-12-18 19:24 | P.HPHOSP_ITS ---
History of Present Illness Date of Service: 12/18/23 Attending physician on admission: Javed Crocker Chief Complaint: rlq pain 78-year-old male with history of hypertension, hyperlipidemia, history of left lower extremity DVT on Eliquis, right renal cyst, history of prostate cancer s/p radiation therapy presented to the ED earlier today for evaluation of right lower quadrant pain ongoing intermittently for the last 4 days. He reports the pain as a 5/10 discomfort, currently rated as a 0/10. Denies any history of prior symptoms. There has been associated nausea but no vomiting. He also states for the past month or so he has been experiencing shaking chills, night sweats, 1 documented fever of 101, fatigue, malaise, and bloating. Denies any unintentional weight loss. He denies any dysuria, hematuria, increased urinary frequency, decreased urinary output, shortness of breath, lightheadedness, or chest pain. He does endorse chronic cough that has not changed in quality or severity. On arrival, patient tachycardic to 127, now maintaining heart rate in the high 90s. Afebrile, no hypoxia or hypotension. There is a leukocytosis of 16.6. Initial hemoglobin 10.4, repeat 9.7. Creatinine 1.78, baseline around 1.27. BUN 36. Electrolyte levels normal. Glucose 163. Lactic acid 1.3. AST 97, ALT 95. Negative for COVID-19, RSV, influenza. CT of the chest shows moderate to large right-sided pleural effusion not previously seen. There is a stable 6 mm nodule in the left lower lung and stable calcified granuloma. CT of the abdomen/pelvis shows marked enlargement of the right kidney with heterogenous density and stranding in in the perinephric space most consistent with intrarenal hemorrhage with hemorrhagic extension or additional hemorrhagic involvement or into the perinephric space and right psoas muscle with unclear etiology. There is also tiny focus of prominent increased density raising the question of very small focus of arterial bleeding. There is also dilatation of the right ureter with sparing of the very distal portion of the ureter likely again reflecting extension of the hemorrhage into the ureter possibly causing partial obstruction. Review of Systems 2 Review of Systems: Yes all other systems are reviewed and are negative [facility] Medical History Hypertension Diverticulosis Overweight (BMI 25.0-29.9) History of prostate cancer Renal cyst Vitamin D deficiency Osteoarthritis of left knee Impaired fasting glucose Pure hypercholesterolemia Benign essential hypertension Radiation cystitis Family History Father Cancer Mother Colon cancer Surgical History Hx of right inguinal hernia repair (02/16/23) History of ankle surgery History of colonoscopy History of meniscectomy of left knee (~06/05/12) Hx of prostatectomy Hx of umbilical hernia repair Social History Housing: House Alcohol intake: current Alcohol intake frequency: 0-2 drinks per day Alcohol type: beer Comment: . 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 Cognitive needs: No Hearing needs: No Vision needs: Yes Meds Allergies Allergy/AdvReac Type Severity Reaction Status Date / Time No Known Allergies Allergy Verified 12/18/23 09:11 Home Medications ?Medication ?Instructions ?Recorded ?Confirmed ?Last Taken ?Type cholecalciferol (vitamin D3) 10 10 mcg PO DAILY 06/01/20 12/13/23 Unknown History mcg (400 unit) tablet multivitamin 1 tab PO DAILY 06/01/20 12/13/23 Unknown History ascorbic acid (vitamin C) 500 mg 500 mg PO DAILY 12/08/21 12/13/23 Unknown History tablet (Vitamin C) Physical Exam 2 Vital Signs and Narrative: Vital Signs: Last Vital Signs Temp 98.5 F 12/18/23 19:13 Pulse 96 12/18/23 19:13 Resp 16 12/18/23 19:13 BP 117/49 L 12/18/23 19:13 Pulse Ox 96 12/18/23 19:13 O2 Del Method Room Air 12/18/23 19:13 BMI result Body Mass Index 25.5 Constitutional - Awake and Alert, No apparent distress Eyes - PERRLA, EOMI Cardiovascular - S1S2, RRR, No edema Respiratory - Normal lung expansion, Normal respiratory effort, No respiratory distress, diminished R lung sounds Gastrointestinal - NT / ND; +BS; No rebound or guarding Extremities - no calf tenderness bilaterally, no swelling Skin - Warm/Dry Neurological - Alert & oriented x3 Psychological - Appropriate affect Results Labs 12/18/23 19:19 12/18/23 09:23 Labs: Laboratory Results - last 24 hr 12/18/23 12/18/23 09:23 15:43 MCV 88.5 MCH 29.1 MCHC 32.8 RDW 17.4 H Plt Count 530 H D MPV 7.7 L Immature Gran % (Auto) 0.8 H Neut % (Auto) 90.0 H Lymph % (Auto) 5.3 L [place] % (Auto) 3.7 Eos % (Auto) 0.1 Baso % (Auto) 0.1 Lymph # (Auto) 0.9 L [place] # (Auto) 0.6 Eos # (Auto) 0.0 Baso # (Auto) 0.0 Abs Immat Gran (auto) 0.13 H Absolute Neuts (auto) 14.9 H Absolute Nucleated RBC 0.000 Nucleated RBC % (auto) 0.0 Anion Gap 15 Estim Creat Clear Calc 33.6 Estimated GFR 37 Random Glucose 163 H Lactic Acid 1.3 Calcium 9.4 Magnesium 2.2 Total Bilirubin 0.4 AST 97 H ALT 95 H Alkaline Phosphatase 90 Total Protein 7.4 Albumin 2.8 L Lipase 34 Urine Color Yellow Urine Appearance Clear Urine pH 5.0 Ur Specific [place] 1.020 Urine Protein Trace Urine Glucose (UA) Negative Urine Ketones Negative Urine Blood Negative Urine Nitrite Negative Ur Leukocyte Esterase Negative Influenza Type A (PCR) NEGATIVE Influenza Type B (PCR) NEGATIVE RSV RNA Qual (PCR) NEGATIVE SARS-CoV-2 RNA (RT-PCR) NEGATIVE Imaging Radiologist's Impressions: Impressions Abdomen/Pelvis CT 12/18/23 14:45 IMPRESSION: 1. Marked enlargement of the right kidney with heterogeneous density and stranding in the perinephric space. The appearance is most consistent with intrarenal hemorrhage with hemorrhagic extension or additional hemorrhagic involvement of or into the perinephric space and right psoas muscle. Etiology for the intrarenal hemorrhage not determined. The tiny focus of prominent increased density raises the question of very small focus of active arterial bleeding. 2. There is also dilatation of the right ureter with sparing of the very distal portion of the ureter. This likely reflects extension of hemorrhage into the ureter, perhaps causing partial obstruction. 3. Moderate to large right pleural effusion not seen on the prior CT of December 08, 2021. 4. Stable left lung dating back to November 2021. Given its stability over 2 years, no further follow-up is recommended. 5. Calcified granuloma unchanged. 6. Calcific atherosclerotic disease. 7. Spondylosis of the spine. Electronically signed by: Paco Hankins MD 12/18/2023 05:09 PM EDT RP Chest CT 12/18/23 14:53 IMPRESSION: 1. Marked enlargement of the right kidney with heterogeneous density and stranding in the perinephric space. The appearance is most consistent with intrarenal hemorrhage with hemorrhagic extension or additional hemorrhagic involvement of or into the perinephric space and right psoas muscle. Etiology for the intrarenal hemorrhage not determined. The tiny focus of prominent increased density raises the question of very small focus of active arterial bleeding. 2. There is also dilatation of the right ureter with sparing of the very distal portion of the ureter. This likely reflects extension of hemorrhage into the ureter, perhaps causing partial obstruction. 3. Moderate to large right pleural effusion not seen on the prior CT of December 08, 2021. 4. Stable left lung dating back to November 2021. Given its stability over 2 years, no further follow-up is recommended. 5. Calcified granuloma unchanged. 6. Calcific atherosclerotic disease. 7. Spondylosis of the spine. Electronically signed by: Paco Hankins MD 12/18/2023 05:09 PM EDT RP Assessment and Plan (1) Sepsis: Status: Acute (2) Pleural effusion, right: Status: Acute (3) Renal hemorrhage, right: Status: Acute Plan 78-year-old male with history of hypertension, hyperlipidemia, history of left lower extremity DVT on Eliquis, right renal cyst, history of prostate cancer s/p radiation therapy admitted for further management of sepsis with large R pleural effusion and intrarenal hemorrhage. #Sepsis possibly due to Large R pleural effusion -CT chest shows moderate to large R pleural effusion, unclear etiology. No sob, no hypoxia -leukocytosis 16.6, tachycardic. No lactic acidosis or end-organ damage. No hypotension -IV Zosyn (initiated 12/17) -thoracentesis with fluid analysis a.m. Hold eliquis -consider pulmonology versus thoracic surgery consult -follow CBC, cultures #Acute on chronic anemia due to right-sided intrarenal hemorrhage with extension to preineprhic space, psoas muscle, and R ureter with obstruction -H/H 10.4/31.7 -->9.7/29.7% -CT of the abdomen/pelvis shows marked enlargement of the right kidney with heterogenous density and stranding in in the perinephric space most consistent with intrarenal hemorrhage with hemorrhagic extension or additional hemorrhagic involvement or into the perinephric space and right psoas muscle with unclear etiology. There is also tiny focus of prominent increased density raising the question of very small focus of arterial bleeding -UA without evidence of infection -hold eliquis (last taken 9/2 am) -urology consult, NPO after midnight in case of procedure -Follow h/h #Acute kidney injury- likely post renal due to ureteral obstruction from hemorrhage -creat 1.78, baseline 1.28 -Continue IVF with LR -avoid nephrotoxins -monitor I&O -follow renal function/lytes #Acute hyperglycemia -hgb a1c pending #HTN -continue amlodipine. Hold benazepril in setting of MARYSE # history of left lower extremity DVT -hold Eliquis DVT prophylaxis- SCPs Full code Pt requires inpt stay at least 2 midnights for management of sepsis with large pleural effusion requiring iv abx and diagnostic thoracentesis as well as expert consulation and serial monitoring of h/h due to itrarenal hemorrage with extension resulting in ureteral obstruction and maryse Quality Stroke Does the patient have a stroke diagnosis?: No VTE Prior VTE?: Yes VTE Risk Level:: Medical - moderate - high VTE Device Contraindication: N/A - Device Ordered VTE Drug Contraindication: Treatment Not Indicated
[2023-12-18 19:26] LABS: Basophils Percent Auto 0.1 % (0-2); Eosinophils Percent Auto 0.2 % (0-4); Hematocrit 29.7 % (42.0-52.0); Hemoglobin 9.7 g/dl (14.0-18.0); Imm Gran Abs Auto 0.08 X10*3/uL (0.00-0.03); Imm Gran Pct Auto 0.5 % (0.0-0.4); Lymphocytes Absolute Auto 1.3 X10*3/uL (1.2-4.9); Lymphocytes Percent Auto 7.9 % (20-40); MANUAL DIFF FLAG NO; Mean Corpuscular HGB Conc 32.7 g/dl (31.0-36.0); Mean Corpuscular Volume 88.9 fL (80.0-98.0); Mean Platelet Volume 7.6 fL (9.4-12.4); Monocytes Absolute Auto 0.9 X10*3/uL (0.1-1.2); Monocytes Percent Auto 5.4 % (2-11); Neutrophils Absolute Auto 13.8 x10*3/uL (2.0-8.3); Neutrophils Percent Auto 85.9 % (45-73); Platelet Count 417 X10*3/uL (160-400); Red Blood Count 3.34 X10*6/uL (4.60-5.80); Red Cell Distribution Width 17.6 % (11.0-16.0)
--- NOTE | 2023-12-18 19:36 | PC.NURSE ---
Addendum entered by Tessa Kaiser RN 12/18/23 20:48: PT SPEAKING IN CLEAR FULL SENTENCES,RESP EVEN, NONLABOURED. STATES RECENT PERSISTENT NONPROD COUGH. DENIES SOB. LS CLEAR, THOUGH SEVERELY DIMINISHED IN RLL. Original Note: ARRIVES FROM HOME ENDORSING R SIDED ABD PAIN X 4 DAYS, WITH A FEVER LAST WEEK. DENIES N/V/D, NO TRAUMA, NO BLEEDING, ON XARELTO. UPON ARRIVAL TO ROOM PT STATED PAIN HAD SOMEWHAT RESOLVED. SKIN WARM, DRY, SLIGHTLY PALE, PT STATES HE TAKES IRON SUPPLEMENTS. HX PROSTATE CA, RECEIVED RADIATION TX, HX RENAL CYSTS, FOLLOWED BY [facility] [place]. PT A&OX4, INDEPENDENT AND AMBULATORY WITH NO ISSUE. VS HAVE REMAINED WNL SINCE ARRIVAL. #18 IN RAC. AWAITING REPEAT CBC FOR TRENDING. PT REQUESTING FOOD.
[2023-12-18] MEDS: Piperacillin Sodium/Tazobactam 4.5 GM in 0.9 % Sodium Chloride 100 ML IV (21:05)
[2023-12-18] MEDS: Lactated Ringers 1,000 ML 100 ML IVCONT (21:09)
[2023-12-18 21:10] LABS: Total Protein 7.3 g/dL (6.5-8.0)
[2023-12-18 21:55] VITALS: BP 102/58; PULSE 105; RESP 20; TEMP 37; O2SAT 95
[2023-12-18 22:30] LABS: Lactate Dehydrogenase 208 U/L (118-273)
[2023-12-19] VITALS (8 sets, daily range): BP systolic 104–147; BP diastolic 51–67; PULSE 84–102; RESP 16–20; TEMP 36.3–37.8; O2SAT 93–98; BMI 25.7
--- NOTE | 2023-12-19 00:26 | MHC.EDTECH ---
Patient vitals just taken ,this Pct is transporting Pt to [facility] unit .
[2023-12-19] MEDS: Melatonin 3 MG TABLET 6 MG PO (01:05)
[2023-12-19] MEDS: Piperacillin Sodium/Tazobactam 4.5 GM in 0.9 % Sodium Chloride 100 ML IV ×3 (03:26→20:03)
[2023-12-19] MEDS: Lactated Ringers 1,000 ML 100 ML IVCONT (03:27)
[2023-12-19 06:06] LABS: MANUAL DIFF FLAG NO
[2023-12-19 06:16] LABS: Basophils Percent Auto 0.2 % (0-2); Eosinophils Percent Auto 0.3 % (0-4); Hematocrit 27.4 % (42.0-52.0); Hemoglobin 8.8 g/dl (14.0-18.0); Imm Gran Abs Auto 0.09 X10*3/uL (0.00-0.03); Imm Gran Pct Auto 0.7 % (0.0-0.4); Lymphocytes Percent Auto 7.1 % (20-40); Mean Corpuscular HGB Conc 32.1 g/dl (31.0-36.0); Mean Corpuscular Hemoglobin 28.9 pg (27.0-33.0); Mean Corpuscular Volume 90.1 fL (80.0-98.0); Mean Platelet Volume 7.8 fL (9.4-12.4); Monocytes Absolute Auto 0.8 X10*3/uL (0.1-1.2); Monocytes Percent Auto 5.9 % (2-11); Neutrophils Absolute Auto 11.4 x10*3/uL (2.0-8.3); Neutrophils Percent Auto 85.8 % (45-73); Platelet Count 430 X10*3/uL (160-400); Red Blood Count 3.04 X10*6/uL (4.60-5.80); Red Cell Distribution Width 17.5 % (11.0-16.0); White Blood Count 13.3 X10*3/uL (4.8-10.8)
[2023-12-19 06:25] LABS: Anion Gap 10 (12-20); Blood Urea Nitrogen 34 mg/dL (9-16); Calcium 8.7 mg/dL (8.4-10.2); Carbon Dioxide 23 mmol/L (22-29); Chloride 109 mmol/L (96-108); Creatinine Clr Calc Pharmacy 45.7; Estimated Glomerular Filt Rate 53; Glucose Random 125 mg/dL (60-115); Potassium 4.8 mmol/L (3.3-5.1); Sodium 137 mmol/L (135-145)
[2023-12-19 06:28] LABS: Estimated Average Glucose 103 mg/dL; Hemoglobin A1c % 5.2 % (<6.0)
[2023-12-19 06:37] LABS: INTERNATIONAL NORM RATIO 1.7 (0.9-1.1); Prothrombin Time 20.8 SEC (11.1-13.3)
--- NOTE | 2023-12-19 07:51 | PM.UROCN ---
History of Present Illness Consult details Consult date: 12/19/23 Narrative: 78-year-old male with history of hypertension, hyperlipidemia, history of left lower extremity DVT on Eliquis, multple right renal cysts, history of prostate cancer s/p radiation therapy presented to the ED for evaluation of right lower quadrant pain ongoing intermittently for the last 4 days. CTAP-- Right kidney with heterogeneous density most consistent with intrarenal hemorrhage with hemorrhagic extension or additional hemorrhagic involvement of or into the perinephric space and right psoas muscle. Patient urinating without difficulty, edson urine. In discussion this morning, patient state pain is better. Review of Systems Review of Systems: Yes all other systems are reviewed and are negative Constitutional: Constitutional: Reports no additional constitutional complaints Eyes: Eyes: Reports no additional eye complaints ENT: Reports system reviewed and no additional complaints, except as documented Cardiovascular: Cardiovascular: Reports no additional cardiovascular complaints Respiratory: Respiratory: Reports no additional respiratory complaints Gastrointestinal: Gastrointestinal: Reports no additional gastrointestinal complaints Genitourinary: Genitourinary: Reports as per HPI Musculoskeletal: Musculoskeletal: Reports no additional musculoskeletal complaints Integumentary/Breasts: Skin/Breast: Reports system reviewed and no additional complaints, except as docu Neurologic: Reports system reviewed and no additional complaints, except as documented Psychiatric: Psychiatric: Reports no additional psychiatric complaints Endocrine: Endocrine: Reports no additional endocrine complaints Hematologic/Lymphatic: Hematologic/Lymphatic: Reports no additional hematologic/lymphatic complaints Allergic/Immunologic: Allergic/Immunologic: Reports no additional allergic/immunologic complaints PMFSH Past Medical History Medical History Hypertension Diverticulosis Overweight (BMI 25.0-29.9) History of prostate cancer Renal cyst Vitamin D deficiency Osteoarthritis of left knee Impaired fasting glucose Pure hypercholesterolemia Benign essential hypertension Radiation cystitis Family History Family History Father Cancer Mother Colon cancer Surgical History Surgical History Hx of right inguinal hernia repair (02/16/23) History of ankle surgery History of colonoscopy History of meniscectomy of left knee (~06/05/12) Hx of prostatectomy Hx of umbilical hernia repair Social History Social History Household Members: Spouse Housing: House Do you presently have visiting nurse or other home services: No Alcohol intake: current Alcohol intake frequency: 0-2 drinks per day Alcohol type: beer Comment: . 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 Cognitive needs: No Hearing needs: No Vision needs: Yes Meds Allergies Allergy/AdvReac Type Severity Reaction Status Date / Time No Known Allergies Allergy Verified 12/18/23 09:11 Active Medications: Current Medications Acetaminophen (Acetaminophen 325 Mg Tablet) 650 mg PO Q6H PRN PRN Reason: Pain, Mild (Pain Scale 1-3), fever or headache Calcium Carbonate (Calcium Carbonate 750 Mg Tab.Chew) 750 mg PO Q4H PRN PRN Reason: Heartburn Piperacillin Sod/Tazobactam (Sod 4.5 gm/ Sodium Chloride) 100 mls @ 200 mls/hr IV Q8H [facility] Last Infusion: 12/19/23 04:45 Dose: Infused Lactated Ringer's (Lr) 1,000 mls @ 100 mls/hr IVCONT .Q10H [facility] Last Admin: 12/19/23 03:27 Dose: 100 mls/hr Magnesium Hydroxide (Milk Of Magnesia 30 Ml Oral.Susp) 30 ml PO DAILY PRN PRN Reason: Constipation Melatonin (Melatonin 3 Mg Tablet) 6 mg PO BEDTIME PRN PRN Reason: Insomnia Last Admin: 12/19/23 01:05 Dose: 6 mg Sodium Chloride (0.9 % Sodium Chloride Flush 3 Ml Syringe) 3 ml IVFLUSH QSHIFT [facility] Last Admin: 12/18/23 23:13 Dose: Not Given Home Medications ?Medication ?Instructions ?Recorded ?Confirmed ?Last Taken ?Type cholecalciferol (vitamin D3) 10 10 mcg PO DAILY 06/01/20 12/18/23 Unknown History mcg (400 unit) tablet multivitamin 1 tab PO DAILY 06/01/20 12/18/23 Unknown History ascorbic acid (vitamin C) 500 mg 500 mg PO DAILY 12/08/21 12/18/23 Unknown History tablet (Vitamin C) ferrous sulfate 142 mg (45 mg 45 mg PO DAILY 12/18/23 12/18/23 Unknown History iron) tablet,extended release Physical Exam Vital Signs: Vital Signs: Last Vital Signs Temp 98.9 F 12/19/23 06:52 Pulse 85 12/19/23 06:52 Resp 18 12/19/23 06:52 BP 114/61 12/19/23 06:52 Pulse Ox 95 12/19/23 06:52 O2 Del Method Room Air 12/19/23 06:52 BMI result Body Mass Index 25.7 Const: General: healthy appearing, no acute distress and well developed Orientation/consciousness: patient oriented x3 HEENT: Head: Yes normocephalic and Yes atraumatic Eyes: Conjunctivae: conjunctivae normal Neck: Neck: Yes normal visual inspection Chest: Chest palpation & inspection: normal inspection of the chest Resp: Effort & Inspection: normal respiratory effort Cardio: Rate: regular rate GI: Inspection: Yes normal to inspection Palpation (GI): Soft to palpation Neuro: General: patient oriented x3 Psych: Appearance: grossly normal Affect: normal affect Results Labs 12/19/23 06:00 12/19/23 06:00 Labs: Abnormal lab results 12/18/23 12/18/23 12/19/23 Range/Units 09:23 19:19 06:00 WBC 16.6 H 16.0 H 13.3 H (4.8-10.8) X10*3/uL RBC 3.58 L 3.34 L 3.04 L (4.60-5.80) X10*6/uL Hgb 10.4 L 9.7 L 8.8 L (14.0-18.0) g/dl Hct 31.7 L 29.7 L 27.4 L (42.0-52.0) % RDW 17.4 H 17.6 H 17.5 H (11.0-16.0) % Plt Count 530 H D 417 H 430 H (160-400) X10*3/uL MPV 7.7 L 7.6 L 7.8 L (9.4-12.4) fL Immature Gran % (Auto) 0.8 H 0.5 H 0.7 H (0.0-0.4) % Neut % (Auto) 90.0 H 85.9 H 85.8 H (45-73) % Lymph % (Auto) 5.3 L 7.9 L 7.1 L (20-40) % Lymph # (Auto) 0.9 L 1.0 L (1.2-4.9) X10*3/uL Abs Immat Gran (auto) 0.13 H 0.08 H 0.09 H (0.00-0.03) X10*3/uL Absolute Neuts (auto) 14.9 H 13.8 H 11.4 H (2.0-8.3) x10*3/uL PT 20.8 H (11.1-13.3) SEC INR 1.7 H (0.9-1.1) Chloride 109 H (96-108) mmol/L Anion Gap 10 L (12-20) BUN 36 H 34 H (9-16) mg/dL Creatinine 1.78 H (0.5-1.4) mg/dL Random Glucose 163 H 125 H (60-115) mg/dL AST 97 H (5-37) U/L ALT 95 H (0-40) U/L Albumin 2.8 L (3.5-5.0) g/dL Short CBC 12/18/23 12/18/23 12/19/23 Range/Units 09:23 19:19 06:00 WBC 16.6 H 16.0 H 13.3 H (4.8-10.8) X10*3/uL Hgb 10.4 L 9.7 L 8.8 L (14.0-18.0) g/dl Hct 31.7 L 29.7 L 27.4 L (42.0-52.0) % Plt Count 530 H D 417 H 430 H (160-400) X10*3/uL BMP 12/18/23 12/19/23 09:23 06:00 Sodium 137 137 Potassium 4.1 D 4.8 Chloride 103 109 H Carbon Dioxide 23 23 BUN 36 H 34 H Creatinine 1.78 H 1.31 Calcium 9.4 8.7 D Liver Function 12/18/23 Range/Units 09:23 Total Bilirubin 0.4 (0.0-1.0) mg/dL AST 97 H (5-37) U/L ALT 95 H (0-40) U/L Alkaline Phosphatase 90 (39-117) U/L Albumin 2.8 L (3.5-5.0) g/dL Urine 12/18/23 Range/Units 15:43 Urine Color Yellow Urine Appearance Clear Urine pH 5.0 (5.0-9.0) Ur Specific [place] 1.020 (1.005-1.025) Urine Protein Trace (Neg-Trace) mg/dL Urine Glucose (UA) Negative (Negative) mg/dL Imaging Abdomen CT scan report/results: report reviewed and image reviewed Additional studies: Date of Service: 12/18/23 EXAMINATION: CT CHEST ABDOMEN AND PELVIS CLINICAL INFORMATION: right flank pain, chastity. COMPARISON: Renal ultrasound August 2019 MRI of the abdomen March 2018 CT angiogram chest December 08, 2021 TECHNIQUE: CT scan of the chest, abdomen and pelvis was performed without contrast. Additional sagittal and coronal two-dimensional reconstruction imaging was obtained at the acquisition workstation. FINDINGS: CHEST: Lungs/pleural spaces: Small 6 mm nodule left lower lung on axial image 325 of series 6 unchanged. Additional adjacent calcified 3 mm nodule noted compatible with calcified granuloma. There is a moderate to large right pleural effusion not seen on prior CT. CARDIOVASCULAR: There is scattered calcification of the dorsal aorta and calcification of the coronary vessels. Lymph nodes: Normal. Esophagus: Normal. Thoracic inlet: Normal. Soft tissue and chest wall: Normal. Axillae: Normal. ABDOMEN AND PELVIS: Liver: Normal. Gallbladder and biliary tree: Normal. Pancreas: Normal. Spleen: Normal. Adrenal glands: Left adrenal gland normal. Right adrenal gland obscured by stranding in the surrounding soft tissues. See comment below. Kidneys and ureters: There is marked enlargement and heterogeneity of the right kidney, which is significantly larger than the left, and its borders are ill-defined. There is an additional heterogeneous density and stranding in the perinephric space. The kidney measures up to 16 cm craniocaudal, 11 centimeters transverse and 11 cm AP. In some areas there appears to be fluid fluid levels with areas of increased density adjacent to areas of hypodensity. There is a small linear focus of increased density in the upper portion of the kidney measuring less than 1 cm. There is also marked enlargement of the right psoas muscle, which is also heterogeneous. Multiple masses noted off the kidney likely reflect the multiple cysts noted on the prior MRI in 2018. These are not as well-defined as previous, presumably related to abovementioned findings within the kidney and surrounding soft tissues. The appearance is most consistent with intrarenal hemorrhage with hemorrhagic extension into the perinephric space and concomitant involvement/hemorrhage of the right iliopsoas muscle. Additionally, there is dilatation of most of the right ureter with sparing of the very distal portion of the ureter. There is slight increased density of the ureter. This is suspicious for additional hemorrhage extending along the ureter. Multiple simple cysts noted in the left kidney, otherwise unremarkable. No dilatation of the left collecting system. Bladder: Normal. PELVIC ORGANS: Normal. PERITONEAL CAVITY: No free fluid. MESENTERY/OMENTUM: Normal. GI TRACT (STOMACH, SMALL BOWEL, LARGE BOWEL): There is mass effect related to the enlarged right kidney and perinephric space displacing the colon anteriorly. Bowel otherwise unremarkable except for diverticulosis of the sigmoid colon without diverticulitis. Stomach normal. APPENDIX: Not visualized, but no inflammatory changes in the expected region of the appendix. LYMPH NODES: Scattered lymph nodes in the retroperitoneum not significantly enlarged. Likely reactive, measuring up to approximately 1 cm. VASCULAR: Scattered [id number] calcific atherosclerotic disease. ABDOMINAL WALL/SOFT TISSUES: Postsurgical changes in the abdominal wall midline. Increased density noted there. SKELETAL: Multilevel spondylosis of the visualized dorsal and lumbosacral spine. IMPRESSION: 1. Marked enlargement of the right kidney with heterogeneous density and stranding in the perinephric space. The appearance is most consistent with intrarenal hemorrhage with hemorrhagic extension or additional hemorrhagic involvement of or into the perinephric space and right psoas muscle. Etiology for the intrarenal hemorrhage not determined. The tiny focus of prominent increased density raises the question of very small focus of active arterial bleeding. 2. There is also dilatation of the right ureter with sparing of the very distal portion of the ureter. This likely reflects extension of hemorrhage into the ureter, perhaps causing partial obstruction. 3. Moderate to large right pleural effusion not seen on the prior CT of December 08, 2021. 4. Stable left lung dating back to November 2021. Given its stability over 2 years, no further follow-up is recommended. 5. Calcified granuloma unchanged. 6. Calcific atherosclerotic disease. 7. Spondylosis of the spine. Assessment and Plan (1) Renal hemorrhage, right: Status: Acute (2) Radiation cystitis: Status: Acute (3) Anemia: Qualifiers: Anemia type: unspecified type Qualified Code(s): D64.9 - Anemia, unspecified Status: Acute Plan Monitor Hb/Hct Recommend repeat CT Abd/pelvis with IV contrast Procedures Date of Service Date of Service: 12/19/23
[2023-12-19] MEDS: Lactated Ringers 1,000 ML 125 ML IVCONT ×2 (08:17→17:50)
[2023-12-19] MEDS: 0.9 % Sodium Chloride Flush 3 ML SYRINGE IVFLUSH ×2 (08:18→17:50)
[2023-12-19] MEDS: iohexoL 350 MG/ML 75 ML INFUS..BTL 85 ML IV (08:54)
--- NOTE | 2023-12-19 09:22 | MHC.CM.PN ---
IMM 12/19/23, Pt lives with his , is independent, no home health services or DME. He has a HCP naming his , copy requested. PCP confirmed: Dr. Ji. to transport home at DC. DCP: home, self care. CM to follow and assist with DC plan.
--- NOTE | 2023-12-19 10:07 | PHA.MEDREC ---
Addendum entered by Kendell Posadas 12/19/23 10:13: Verified by [facility] Original Note: Pharmacy Consult ? Medication Reconciliation Pharmacy has completed the medication reconciliation. Confirmed med rec done by nursing and confirmed with patient directions and dosings were accurate. Patient states he last took some medications Yesterday (Monday12/18/23) in the morning.
--- NOTE | 2023-12-19 11:25 | HO.PM.IMPN ---
Subjective Subjective Date of Service: 12/19/23 Interval History: No acute issues overnight; remains hemodynamically stable. Essentially no discomfort noted Review of Systems Denies chest pain Denies shortness of breath Denies nausea vomiting diarrhea Denies fever chills Physical Exam Vital Signs: Vital Signs: Last Vital Signs Temp 97.6 F 12/19/23 10:53 Pulse 84 12/19/23 10:53 Resp 18 12/19/23 10:53 BP 124/63 12/19/23 10:53 Pulse Ox 95 12/19/23 10:53 O2 Del Method Room Air 12/19/23 10:53 BMI result Body Mass Index 25.7 Const: Other: Awake alert comfortable. No acute distress Resp: Other: Clear to auscultation bilaterally no rales rhonchi or wheezes Cardio: Other: No S4; positive S1-S2; no S3 murmurs rubs or gallops GI: Other: Soft nontender nondistended normoactive bowel sounds Extrem: Other: No edema bilaterally Objective Data Active Medications Acetaminophen (Acetaminophen 325 Mg Tablet) 650 mg PO Q6H PRN PRN Reason: Pain, Mild (Pain Scale 1-3), fever or headache Calcium Carbonate (Calcium Carbonate 750 Mg Tab.Chew) 750 mg PO Q4H PRN PRN Reason: Heartburn Piperacillin Sod/Tazobactam (Sod 4.5 gm/ Sodium Chloride) 100 mls @ 200 mls/hr IV Q8H [facility] Last Infusion: 12/19/23 04:45 Dose: Infused Documented By: KRISS Lactated Ringer's (Lr) 1,000 mls @ 125 mls/hr IVCONT .Q8H [facility] Last Admin: 12/19/23 08:17 Dose: 125 mls/hr Documented By: JUAN Magnesium Hydroxide (Milk Of Magnesia 30 Ml Oral.Susp) 30 ml PO DAILY PRN PRN Reason: Constipation Melatonin (Melatonin 3 Mg Tablet) 6 mg PO BEDTIME PRN PRN Reason: Insomnia Last Admin: 12/19/23 01:05 Dose: 6 mg Documented By: KRISS Comments: requested for sleep Sodium Chloride (0.9 % Sodium Chloride Flush 3 Ml Syringe) 3 ml IVFLUSH QSHIFT [facility] Last Admin: 12/19/23 08:18 Dose: 3 ml Documented By: JUAN Labs 12/19/23 06:00 09/03/24 06:00 Labs: Laboratory Results - last 24 hr 12/18/23 12/18/23 12/18/23 09:23 15:43 19:19 MCV 88.9 MCH 29.0 MCHC 32.7 RDW 17.6 H Plt Count 417 H MPV 7.6 L Immature Gran % (Auto) 0.5 H Neut % (Auto) 85.9 H Lymph % (Auto) 7.9 L [place] % (Auto) 5.4 Eos % (Auto) 0.2 Baso % (Auto) 0.1 Lymph # (Auto) 1.3 [place] # (Auto) 0.9 Eos # (Auto) 0.0 Baso # (Auto) 0.0 Abs Immat Gran (auto) 0.08 H Absolute Neuts (auto) 13.8 H Absolute Nucleated RBC 0.000 Nucleated RBC % (auto) 0.0 PT INR Anion Gap Estim Creat Clear Calc Estimated GFR Random Glucose Estimat Average Glucose Hemoglobin A1c % Lactic Acid 1.3 Calcium Magnesium 2.2 Lactate Dehydrogenase Total Protein Lipase 34 Urine Color Yellow Urine Appearance Clear Urine pH 5.0 Ur Specific [place] 1.020 Urine Protein Trace Urine Glucose (UA) Negative Urine Ketones Negative Urine Blood Negative Urine Nitrite Negative Ur Leukocyte Esterase Negative 12/18/23 12/19/23 20:40 06:00 MCV 90.1 MCH 28.9 MCHC 32.1 RDW 17.5 H Plt Count 430 H MPV 7.8 L Immature Gran % (Auto) 0.7 H Neut % (Auto) 85.8 H Lymph % (Auto) 7.1 L [place] % (Auto) 5.9 Eos % (Auto) 0.3 Baso % (Auto) 0.2 Lymph # (Auto) 1.0 L [place] # (Auto) 0.8 Eos # (Auto) 0.0 Baso # (Auto) 0.0 Abs Immat Gran (auto) 0.09 H Absolute Neuts (auto) 11.4 H Absolute Nucleated RBC 0.000 Nucleated RBC % (auto) 0.0 PT 20.8 H INR 1.7 H Anion Gap 10 L Estim Creat Clear Calc 45.7 Estimated GFR 53 Random Glucose 125 H Estimat Average Glucose 103 Hemoglobin A1c % 5.2 Lactic Acid Calcium 8.7 D Magnesium Lactate Dehydrogenase 208 Total Protein 7.3 Lipase Urine Color Urine Appearance Urine pH Ur Specific [place] Urine Protein Urine Glucose (UA) Urine Ketones Urine Blood Urine Nitrite Ur Leukocyte Esterase Microbiology Microbiology Results: Microbiology 12/18/23 15:43 Urine Culture - Preliminary Urine clean catch - Clean Catch Midstream No growth to date. Assessment and Plan (1) Renal hemorrhage, right: Status: Acute (2) Pleural effusion, right: Status: Acute Plan 78-year-old male with history of hypertension, hyperlipidemia, history of left lower extremity DVT on Eliquis, right renal cyst, history of prostate cancer s/p radiation therapy admitted for further management of sepsis with large R pleural effusion and intrarenal hemorrhage. 1.Acute on chronic anemia due to right-sided intrarenal hemorrhage with extension to preineprhic space, psoas muscle, and R ureter with obstruction -hemoglobin stable... Serial CBCs -CTA abdomen pelvis with IV contrast discuss with Urology; will keep NPO after midnight for stent in a.m. -empiric ceftriaxone(2) -hold eliquis (last taken 9/2 am) -NPO after midnight 2. Right pleural effusion -schedule for therapeutic/diagnostic thoracentesis -continue to hold Eliquis 3.Acute kidney injury -responding to volume -IVF with LR 125/hr -follow renals/divalents 4.HTN -acceptable control on current therapies -continue to hold ACEI 5.Left lower extremity DVT -hold Eliquis pending stenting SCPs Full code Requires ongoing hospitalization for stenting to treat intrarenal hemorrhage and for right thoracentesis. Also ongoing specialist consultation Quality Stroke Does the patient have a stroke diagnosis?: No VTE Prior VTE?: Yes VTE Risk Level:: Medical - moderate - high VTE Device Contraindication: N/A - Device Ordered VTE Drug Contraindication: Treatment Not Indicated
--- NOTE | 2023-12-19 12:34 | PM.PROC ---
Brief Operative Note Date of procedure: 12/19/23 Pre-op diagnosis: Right pleural effusion Post-op diagnosis: same Procedure: US right thoracentesis 400 cc serous fluid removed and sent for analysis. Post CXR without a pneumothorax Anesthesia: local
[2023-12-19] MEDS: Lidocaine HCl 1 % MPF 5 ML VIAL SUBCUT (12:38)
[2023-12-19 12:52] LABS: MN% 40.9 %; PMN% 59.1 %; WBC Pleural Fluid 1.141 X10*3/uL
--- NOTE | 2023-12-19 12:52 | PC.NURSE ---
Antibiotic due at 12;15 give late , pt was in the procedure
[2023-12-19 12:53] LABS: RBC Pleural Fluid < 0.002 X10*6/uL
[2023-12-19 13:39] LABS: BF Shift QC OK YES; Lymphocytes Pleural Fluid 3 %; Monocytes Pleural Fluid 3 %; Neutrophils Pleural Fluid 58 %; Other Cells Plerual Fl 36 %
--- NOTE | 2023-12-19 14:00 | PC.NURSE ---
s/p thoracentesis today, dsg to right mid back dry and intact, no crepitus , no sob ,
[2023-12-20] VITALS (12 sets, daily range): BP systolic 112–142; BP diastolic 57–78; PULSE 81–99; RESP 16–20; TEMP 36.2–37.3; O2SAT 93–97
[2023-12-20] MEDS: 0.9 % Sodium Chloride Flush 3 ML SYRINGE IVFLUSH ×2 (00:08→08:05)
[2023-12-20] MEDS: Lactated Ringers 1,000 ML 125 ML IVCONT ×3 (00:08→19:13)
[2023-12-20] MEDS: Piperacillin Sodium/Tazobactam 4.5 GM in 0.9 % Sodium Chloride 100 ML IV ×3 (04:09→23:14)
--- NOTE | 2023-12-20 10:52 | MHC.CM.PN ---
EMR REVIEWED, PER HOSPITALIST ANTIC PT HAVE STENT PLACED TODAY, ANTIC PT WILL DC HOME NO SERVICES ONCE MEDICALLY CLEARED, CM WILL CONT TO FOLLOW DC NEEDS.
--- NOTE | 2023-12-20 11:53 | P.PNIM_ITS ---
Subjective Subjective Date of Service: 12/20/23 Interval History: No acute issues overnight. No ill affects from thoracentesis Review of Systems Denies chest pain Denies shortness of breath Denies nausea vomiting diarrhea Denies fever chills Physical Exam 2 Vital Signs: Vital Signs: Last Vital Signs Temp 98.3 F 12/20/23 11:25 Pulse 83 12/20/23 11:25 Resp 18 12/20/23 11:25 BP 112/57 L 12/20/23 11:25 Pulse Ox 95 12/20/23 11:25 O2 Del Method Room Air 12/20/23 11:25 BMI result Body Mass Index 25.7 Const: Other: Awake alert comfortable. No acute distress Resp: Other: Clear to auscultation bilaterally no rales rhonchi or wheezes Cardio: Other: No S4; positive S1-S2; no S3 murmurs rubs or gallops GI: Other: Soft nontender nondistended normoactive bowel sounds Extrem: Other: No edema bilaterally Objective Data Active Medications Acetaminophen (Acetaminophen 325 Mg Tablet) 650 mg PO Q6H PRN PRN Reason: Pain, Mild (Pain Scale 1-3), fever or headache Calcium Carbonate (Calcium Carbonate 750 Mg Tab.Chew) 750 mg PO Q4H PRN PRN Reason: Heartburn Lactated Ringer's (Lr) 1,000 mls @ 125 mls/hr IVCONT .Q8H [facility] Last Admin: 12/20/23 08:06 Dose: 125 mls/hr Documented By: AWILDA Piperacillin Sod/Tazobactam (Sod 4.5 gm/ Sodium Chloride) 100 mls @ 200 mls/hr IV Q6H [facility] Last Infusion: 12/20/23 11:15 Dose: Infused Documented By: GABI Magnesium Hydroxide (Milk Of Magnesia 30 Ml Oral.Susp) 30 ml PO DAILY PRN PRN Reason: Constipation Melatonin (Melatonin 3 Mg Tablet) 6 mg PO BEDTIME PRN PRN Reason: Insomnia Last Admin: 12/19/23 01:05 Dose: 6 mg Documented By: KRISS Comments: requested for sleep Sodium Chloride (0.9 % Sodium Chloride Flush 3 Ml Syringe) 3 ml IVFLUSH QSHIFT [facility] Last Admin: 12/20/23 08:05 Dose: 3 ml Documented By: AWILDA Labs 12/19/23 06:00 12/19/23 06:00 Labs: Laboratory Results - last 24 hr 12/19/23 12:15 Pleural WBC 1.141 Pleural RBC < 0.002 Pleural Neutrophils 58 Pleural Lymphocytes 3 Pleural Monocytes 3 Pleural Other Cells 36 Microbiology Microbiology Results: Microbiology 12/18/23 15:43 Urine Culture - Final Urine clean catch - Clean Catch Midstream 12/19/23 12:15 Gram Stain - Final Pleural Fluid Routine Culture - Preliminary No growth to date. Anaerobic Culture - Preliminary No growth to date. 12/18/23 15:53 Blood Culture - Preliminary Blood - Venous No growth after 24 hours. 12/18/23 15:43 Blood Culture - Preliminary Blood - Venous No growth after 24 hours. Assessment and Plan (1) Renal hemorrhage, right: Status: Acute (2) Pleural effusion, right: Status: Acute Plan 78-year-old male with history of hypertension, hyperlipidemia, history of left lower extremity DVT on Eliquis, right renal cyst, history of prostate cancer s/p radiation therapy admitted for further management of sepsis with large R pleural effusion and intrarenal hemorrhage. 1.Acute on chronic anemia due to right-sided intrarenal hemorrhage with extension to preineprhic space, psoas muscle, and R ureter with obstruction -hemoglobin stable... Serial CBCs -CTA abdomen pelvis with IV contrast discuss with Urology; will keep NPO after midnight for stent in a.m. -empiric ceftriaxone(3) -hold eliquis (last taken 9/2 am) -NPO for likely stenting today 2. Right pleural effusion -pathology and studies pending. -we will continue to hold Eliquis as per 1; would defer to Urology for restart 3.Acute kidney injury -responding to volume -IVF with LR 125/hr -follow renals/divalents 4.HTN -acceptable control on current therapies -continue to hold ACEI 5.Left lower extremity DVT -hold Eliquis pending stenting SCPs Full code Requires ongoing hospitalization for stenting to treat intrarenal hemorrhage and for right thoracentesis. Also ongoing specialist consultation Quality Stroke Does the patient have a stroke diagnosis?: No VTE Prior VTE?: Yes VTE Risk Level:: Medical - moderate - high VTE Device Contraindication: N/A - Device Ordered VTE Drug Contraindication: Treatment Not Indicated
--- NOTE | 2023-12-20 17:02 | HO.ANESPROP2 ---
HPI - Anesthesia Eval Consult details Narrative: for ureteral stent removal PMFSH Active Problems Active Problems: All Active Problems Sepsis (Acute) Pleural effusion, right (Acute) Renal hemorrhage, right (Acute) Hyperkalemia (Acute) Anemia (Acute) Cataracts, bilateral (Acute) Preoperative examination (Acute) Disc degeneration, lumbar (Acute) Lumbar spondylosis (Acute) Low back pain (Acute) Right knee pain (Acute) Left knee pain (Acute) Inguinal hernia (Acute) Dupuytren's contracture of left hand (Acute) Deep vein thrombosis (DVT) of left lower extremity (Acute) Annual physical exam (Acute) DVT (deep venous thrombosis) (Acute) Hemorrhagic cystitis (Acute) Radiation cystitis (Acute) Microscopic hematuria (Acute) Urinary urgency (Acute) Prostate cancer (Acute) Complex renal cyst (Acute) Adult general medical exam (Acute) Screening for colon cancer (Acute) Overweight (BMI 25.0-29.9) (Acute) History of prostate cancer (Acute) Renal cyst (Acute) Hematuria (Acute) Vitamin D deficiency (Acute) Osteoarthritis of left knee (Acute) Impaired fasting glucose (Acute) Pure hypercholesterolemia (Acute) Benign essential hypertension (Acute) Past Medical History Medical History Hypertension Diverticulosis Overweight (BMI 25.0-29.9) History of prostate cancer Renal cyst Vitamin D deficiency Osteoarthritis of left knee Impaired fasting glucose Pure hypercholesterolemia Benign essential hypertension Radiation cystitis Family History Family History Father Cancer Mother Colon cancer Family history of problems with anesthesia: No Surgical History Surgical History Hx of right inguinal hernia repair (02/16/23) History of ankle surgery History of colonoscopy History of meniscectomy of left knee (~06/05/12) Hx of prostatectomy Hx of umbilical hernia repair History of Problems with Anesthesia: No Social History Social History Household Members: Spouse Housing: House Are you a primary home health care case manager to a significant other at home: No Do you presently have visiting nurse or other home services: No Alcohol intake: current Alcohol intake frequency: 0-2 drinks per day Alcohol type: beer Comment: . 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 Cognitive needs: No Hearing needs: No Vision needs: Yes Meds Allergies Allergy/AdvReac Type Severity Reaction Status Date / Time No Known Allergies Allergy Verified 12/18/23 09:11 Active Medications: Current Medications Acetaminophen (Acetaminophen 325 Mg Tablet) 650 mg PO Q6H PRN PRN Reason: Pain, Mild (Pain Scale 1-3), fever or headache Calcium Carbonate (Calcium Carbonate 750 Mg Tab.Chew) 750 mg PO Q4H PRN PRN Reason: Heartburn Lactated Ringer's (Lr) 1,000 mls @ 125 mls/hr IVCONT .Q8H COUNT INCLUDES THE [facility] Last Admin: 12/20/23 08:06 Dose: 125 mls/hr Piperacillin Sod/Tazobactam (Sod 4.5 gm/ Sodium Chloride) 100 mls @ 200 mls/hr IV Q6H COUNT INCLUDES THE [facility] Last Infusion: 12/20/23 11:15 Dose: Infused Magnesium Hydroxide (Milk Of Magnesia 30 Ml Oral.Susp) 30 ml PO DAILY PRN PRN Reason: Constipation Melatonin (Melatonin 3 Mg Tablet) 6 mg PO BEDTIME PRN PRN Reason: Insomnia Last Admin: 12/19/23 01:05 Dose: 6 mg Sodium Chloride (0.9 % Sodium Chloride Flush 3 Ml Syringe) 3 ml IVFLUSH QSHIFT COUNT INCLUDES THE [facility] Last Admin: 12/20/23 08:05 Dose: 3 ml Home Medications ?Medication ?Instructions ?Recorded ?Confirmed ?Last Taken ?Type cholecalciferol (vitamin D3) 10 10 mcg PO DAILY 06/01/20 12/19/23 12/18/23 History mcg (400 unit) tablet multivitamin 1 tab PO DAILY 06/01/20 12/19/23 12/18/23 History ascorbic acid (vitamin C) 500 mg 500 mg PO DAILY 12/08/21 12/19/23 12/18/23 History tablet (Vitamin C) ferrous sulfate 142 mg (45 mg 142 mg PO DAILY 12/18/23 12/19/23 12/18/23 History iron) tablet,extended release Exam Height,Weight and Vital Signs: Height 5 ft 9 in Weight 78.8 kg Last Vital Signs Temp 98.2 F 12/20/23 13:07 Pulse 81 12/20/23 13:07 Resp 16 12/20/23 13:07 BP 138/61 12/20/23 13:07 Pulse Ox 96 12/20/23 13:07 O2 Del Method Room Air 12/20/23 13:07 Pertinent Lab Results Pertinent Lab Results: Laboratory Tests 12/18/23 12/18/23 12/18/23 09:23 15:43 19:19 WBC 16.6 H 16.0 H RBC 3.58 L 3.34 L Hgb 10.4 L 9.7 L Hct 31.7 L 29.7 L MCV 88.5 88.9 MCH 29.1 29.0 MCHC 32.8 32.7 RDW 17.4 H 17.6 H Plt Count 530 H D 417 H MPV 7.7 L 7.6 L Immature Gran % (Auto) 0.8 H 0.5 H Neut % (Auto) 90.0 H 85.9 H Lymph % (Auto) 5.3 L 7.9 L [place] % (Auto) 3.7 5.4 Eos % (Auto) 0.1 0.2 Baso % (Auto) 0.1 0.1 Lymph # (Auto) 0.9 L 1.3 [place] # (Auto) 0.6 0.9 Eos # (Auto) 0.0 0.0 Baso # (Auto) 0.0 0.0 Abs Immat Gran (auto) 0.13 H 0.08 H Absolute Neuts (auto) 14.9 H 13.8 H Absolute Nucleated RBC 0.000 0.000 Nucleated RBC % (auto) 0.0 0.0 PT INR Sodium 137 Potassium 4.1 D Chloride 103 Carbon Dioxide 23 Anion Gap 15 BUN 36 H Creatinine 1.78 H Estim Creat Clear Calc 33.6 Estimated GFR 37 Random Glucose 163 H Estimat Average Glucose Hemoglobin A1c % Lactic Acid 1.3 Calcium 9.4 Magnesium 2.2 Total Bilirubin 0.4 AST 97 H ALT 95 H Alkaline Phosphatase 90 Lactate Dehydrogenase Total Protein 7.4 Albumin 2.8 L Lipase 34 Urine Color Yellow Urine Appearance Clear Urine pH 5.0 Ur Specific [place] 1.020 Urine Protein Trace Urine Glucose (UA) Negative Urine Ketones Negative Urine Blood Negative Urine Nitrite Negative Ur Leukocyte Esterase Negative Pleural WBC Pleural RBC Pleural Neutrophils Pleural Lymphocytes Pleural Monocytes Pleural Other Cells Influenza Type A (PCR) NEGATIVE Influenza Type B (PCR) NEGATIVE RSV RNA Qual (PCR) NEGATIVE SARS-CoV-2 RNA (RT-PCR) NEGATIVE 12/18/23 12/19/23 12/19/23 20:40 06:00 12:15 WBC 13.3 H RBC 3.04 L Hgb 8.8 L Hct 27.4 L MCV 90.1 MCH 28.9 MCHC 32.1 RDW 17.5 H Plt Count 430 H MPV 7.8 L Immature Gran % (Auto) 0.7 H Neut % (Auto) 85.8 H Lymph % (Auto) 7.1 L [place] % (Auto) 5.9 Eos % (Auto) 0.3 Baso % (Auto) 0.2 Lymph # (Auto) 1.0 L [place] # (Auto) 0.8 Eos # (Auto) 0.0 Baso # (Auto) 0.0 Abs Immat Gran (auto) 0.09 H Absolute Neuts (auto) 11.4 H Absolute Nucleated RBC 0.000 Nucleated RBC % (auto) 0.0 PT 20.8 H INR 1.7 H Sodium 137 Potassium 4.8 Chloride 109 H Carbon Dioxide 23 Anion Gap 10 L BUN 34 H Creatinine 1.31 Estim Creat Clear Calc 45.7 Estimated GFR 53 Random Glucose 125 H Estimat Average Glucose 103 Hemoglobin A1c % 5.2 Lactic Acid Calcium 8.7 D Magnesium Total Bilirubin AST ALT Alkaline Phosphatase Lactate Dehydrogenase 208 Total Protein 7.3 Albumin Lipase Urine Color Urine Appearance Urine pH Ur Specific [place] Urine Protein Urine Glucose (UA) Urine Ketones Urine Blood Urine Nitrite Ur Leukocyte Esterase Pleural WBC 1.141 Pleural RBC < 0.002 Pleural Neutrophils 58 Pleural Lymphocytes 3 Pleural Monocytes 3 Pleural Other Cells 36 Influenza Type A (PCR) Influenza Type B (PCR) RSV RNA Qual (PCR) SARS-CoV-2 RNA (RT-PCR) Airway Mallampati Class: II TM Dist: <=3cm Neck ROM: Limited Heart: rrr Lungs: cta Assessment and Plan Assessment Anesthesia Assessment: Anesthesia Plan Discussed Final Anesthetic Review Family History of Problems with Anesthesia: No History of Problems with Anesthesia: No NPO: Yes ASA Class: III Final Preanesthetic Review: No Changes in Pt Med Stat, Meds/Allgs Chart Reviewed, Consent Obtained/Reviewed and Anes Risks/Benef Reviewed Patient Risk: Intermediate Procedure Risk: Low Anesthetic Plan Anesthetic Plan: GA Disposition: Standard PACU
--- NOTE | 2023-12-20 17:07 | MHC.SHP ---
Pre-Procedural Eval Section A - 24 Hr Update-Section A only Date of Service: 12/20/23 The patient is an INPATIENT: Yes The patient has been examined within 24 hours of the surgical procedure. The History & Physical has been completed within 30 days and I have reviewed it.: Yes Section B - Complete if H&P > 30 days Chief Complaint: perinephric hemorrhage, right hydronephrosis Allergies: Allergies Allergy/AdvReac Type Severity Reaction Status Date / Time No Known Allergies Allergy Verified 12/18/23 09:11 Plan Diagnosis/Plan: Unchanged I have reviewed the history and physical and performed a pertinent physical examination on my patient. No changes have occurred unless specified. Cystoscopy right retrograde, ureteral stent. Discussed risks to include but not limited to, blood in the urine, burning with urination, urgency. Time Spent With Patient Time: Total time managing care of this patient today ____ minutes.
--- NOTE | 2023-12-20 18:35 | W.PM.OPN ---
Operative Note Operative Note Date of Service: 12/20/23 Narrative: PreOperative Diagnosis:?? Right renal hemorrhage right hydronephrosis hydroureter Post Operative Diagnosis:?? ?Right renal hemorrhage right hydronephrosis hydroureter, right ureteral stricture, bladder neck contracture Procedure: Cystoscopy bladder neck dilatation, right retrograde right ureteroscopy Surgeon:?Dr Ramu Parish Anesthesia:? General Findings: Stricture distal right ureter, unable to pass guidewire beyond the stricture into the mid to proximal ureter. Procedure: After informed consent was verified the patient was brought to the operating placed on the OR table in supine position.? General Anesthesia was administered per protocol.? The patient was placed in lithotomy position, prepped and draped in the usual sterile fashion.? Safety pause time-out and side of surgery confirmed.? Antibiotics confirmed. A 22 Turkmen cystoscope was inserted transurethrally, the distal bulbous urethra was within normal limits at the bladder neck/proximal urethral there was scarring and a stricture noted, this was dilated with urethral dilators sequentially starting with an 8 fr to a 22 fr. The 22 fr cystoscope was then placed into the bladder. The bladder was visualized, which noted bladder wall thickening. The right ureteral orifice was identified. The? right ureteric orifice was cannulated?attempts to place a hydrophilic guidewire met with resistance. A ureteroscopy was passed into the right distal ureter which noted severe scarring that appeared chronic in nature, again attempts to pass a guide wire was met with resistance. The ureteroscope was removed. The bladder was emptied.? The rigid cystoscope was removed. ?A medina was placed. The patient tolerated the procedure well and was brought to the recovery room in stable condition. Complications: None Drains: medina catheter 10 mL balloonm
[2023-12-21] VITALS (7 sets, daily range): BP systolic 125–139; BP diastolic 62–72; PULSE 87–102; RESP 16–20; TEMP 36.6–36.9; O2SAT 95–98
[2023-12-21] MEDS: Lactated Ringers 1,000 ML 125 ML IVCONT (03:53)
[2023-12-21] MEDS: Piperacillin Sodium/Tazobactam 4.5 GM in 0.9 % Sodium Chloride 100 ML IV ×2 (03:53→10:19)
[2023-12-21 06:39] LABS: MANUAL DIFF FLAG NO
[2023-12-21 06:52] LABS: Basophils Percent Auto 0.2 % (0-2); Eosinophils Absolute Auto 0.1 X10*3/uL (0.0-0.4); Eosinophils Percent Auto 0.8 % (0-4); Hematocrit 26.2 % (42.0-52.0); Hemoglobin 8.3 g/dl (14.0-18.0); Imm Gran Abs Auto 0.08 X10*3/uL (0.00-0.03); Imm Gran Pct Auto 0.7 % (0.0-0.4); Lymphocytes Absolute Auto 0.9 X10*3/uL (1.2-4.9); Lymphocytes Percent Auto 7.9 % (20-40); Mean Corpuscular HGB Conc 31.7 g/dl (31.0-36.0); Mean Corpuscular Hemoglobin 28.7 pg (27.0-33.0); Mean Corpuscular Volume 90.7 fL (80.0-98.0); Monocytes Absolute Auto 0.8 X10*3/uL (0.1-1.2); Monocytes Percent Auto 7.4 % (2-11); Neutrophils Absolute Auto 9.1 x10*3/uL (2.0-8.3); Platelet Count 406 X10*3/uL (160-400); Red Blood Count 2.89 X10*6/uL (4.60-5.80); Red Cell Distribution Width 17.2 % (11.0-16.0); White Blood Count 10.9 X10*3/uL (4.8-10.8)
[2023-12-21 07:01] LABS: Alanine Aminotransferase 76 U/L (0-40); Albumin Level 2.2 g/dL (3.5-5.0); Alkaline Phosphatase 64 U/L (39-117); Anion Gap 11 (12-20); Aspartate Amino Transferase 58 U/L (5-37); Bilirubin Total 0.3 mg/dL (0.0-1.0); Blood Urea Nitrogen 18 mg/dL (9-16); Calcium 8.6 mg/dL (8.4-10.2); Carbon Dioxide 24 mmol/L (22-29); Chloride 108 mmol/L (96-108); Creatinine Clr Calc Pharmacy 48.3; Estimated Glomerular Filt Rate 56; Glucose Fasting 118 mg/dL (60-99); Potassium 4.5 mmol/L (3.3-5.1); Sodium 138 mmol/L (135-145); Total Protein 6.1 g/dL (6.5-8.0)
--- NOTE | 2023-12-21 09:17 | HO.POSTANES ---
Post Anesthesia Evaluation Post Anesthesia Evaluation Date of Service: 12/20/23 Vital Signs: Vital Signs Temp Pulse Resp BP Pulse Ox O2 Del Method 12/21/23 07:38 98.3 F 95 20 132/72 96 Room Air 12/21/23 03:53 98.4 F 92 20 139/65 95 Room Air 12/20/23 23:34 98.0 F 97 20 134/63 97 Room Air Anesthesia: General Mental Status: Awake Pain Control: Satisfactory Nausea/Vomiting: None Hydration: Adequate Anesthesia-Related Issues: No Anes. Related Issues
--- NOTE | 2023-12-21 12:43 | HO.PM.IMPN ---
Subjective Subjective Date of Service: 12/21/23 Interval History: Seen and examined this morning Follow-up for intrarenal hemorrhage Difficulty urinating, no abdominal pain Review of Systems Review of Systems: Yes all other systems are reviewed and are negative Constitutional Constitutional: Denies chills and Denies fever(s) Cardiovascular Cardiovascular: Denies chest pain and Denies palpitations Gastrointestinal Gastrointestinal: Denies abdominal pain, Denies nausea and Denies vomiting Endocrine Endocrine: Denies palpitations Physical Exam Vital Signs: Vital Signs: Last Vital Signs Temp 98.4 F 12/21/23 10:56 Pulse 102 H 12/21/23 10:56 Resp 20 12/21/23 10:56 BP 125/62 12/21/23 10:56 Pulse Ox 97 12/21/23 10:56 O2 Del Method Room Air 12/21/23 10:56 BMI result Body Mass Index 25.7 Const: General: cooperative, comfortable, no acute distress, alert and awake Nutritional Appearance: average body habitus Orientation/consciousness: patient oriented x3 Resp: Effort & Inspection: normal respiratory effort, no respiratory distress and no use of accessory muscles Cardio: Rate: regular rate GI: Inspection: No distended Palpation (GI): Soft to palpation and nontender Neuro: General: patient oriented x3, moves all extremities and CN's II-XI intact bilaterally Extrem: General: Yes no pedal edema Objective Data Active Medications Acetaminophen (Acetaminophen 325 Mg Tablet) 650 mg PO Q6H PRN PRN Reason: Pain, Mild (Pain Scale 1-3), fever or headache Calcium Carbonate (Calcium Carbonate 750 Mg Tab.Chew) 750 mg PO Q4H PRN PRN Reason: Heartburn Piperacillin Sod/Tazobactam (Sod 4.5 gm/ Sodium Chloride) 100 mls @ 200 mls/hr IV Q6H [facility] Last Infusion: 12/21/23 11:00 Dose: Infused Documented By: OFE Magnesium Hydroxide (Milk Of Magnesia 30 Ml Oral.Susp) 30 ml PO DAILY PRN PRN Reason: Constipation Melatonin (Melatonin 3 Mg Tablet) 6 mg PO BEDTIME PRN PRN Reason: Insomnia Last Admin: 12/19/23 01:05 Dose: 6 mg Documented By: KRISS Comments: requested for sleep Sodium Chloride (0.9 % Sodium Chloride Flush 3 Ml Syringe) 3 ml IVFLUSH QSHIFT [facility] Last Admin: 12/21/23 08:07 Dose: Not Given Documented By: OFE Non-Admin Reason: IV Running Labs 12/21/23 06:10 12/21/23 06:10 Labs: Laboratory Results - last 24 hr 12/21/23 06:10 MCV 90.7 MCH 28.7 MCHC 31.7 RDW 17.2 H Plt Count 406 H MPV 8.0 L Immature Gran % (Auto) 0.7 H Neut % (Auto) 83.0 H Lymph % (Auto) 7.9 L [place] % (Auto) 7.4 Eos % (Auto) 0.8 Baso % (Auto) 0.2 Lymph # (Auto) 0.9 L [place] # (Auto) 0.8 Eos # (Auto) 0.1 Baso # (Auto) 0.0 Abs Immat Gran (auto) 0.08 H Absolute Neuts (auto) 9.1 H Absolute Nucleated RBC 0.000 Nucleated RBC % (auto) 0.0 Anion Gap 11 L Estim Creat Clear Calc 48.3 Estimated GFR 56 Fasting Glucose 118 H Calcium 8.6 Total Bilirubin 0.3 AST 58 H ALT 76 H Alkaline Phosphatase 64 Total Protein 6.1 L Albumin 2.2 L Microbiology Microbiology Results: Microbiology 12/19/23 12:15 Gram Stain - Final Pleural Fluid Routine Culture - Final No growth after 2 days Anaerobic Culture - Preliminary No growth to date. 12/18/23 15:53 Blood Culture - Preliminary Blood - Venous No growth after 48 hours. 12/18/23 15:43 Blood Culture - Preliminary Blood - Venous No growth after 48 hours. 12/18/23 15:43 Urine Culture - Final Urine clean catch - Clean Catch Midstream Assessment and Plan (1) Pleural effusion, right: Status: Acute (2) Renal hemorrhage, right: Status: Acute Plan 78-year-old male with history of hypertension, hyperlipidemia, history of left lower extremity DVT on Eliquis, right renal cyst, history of prostate cancer s/p radiation therapy admitted for further management of sepsis with large R pleural effusion and intrarenal hemorrhage. Acute on chronic anemia due to right-sided intrarenal hemorrhage with extension to perinephric space, psoas muscle CTA abdomen pelvis with IV contrast discussed with Urology Empirically treated with IV Zosyn since admission, can likely deescalate antibiotics, we will discuss with Urology ?of psoas abscess on repeat ct scan, less likely as afebrile, white count trending down, pain resolved hold eliquis (last taken 9/2 am) H/H trending down, will follow daily Hydroureter/ureteral stricture Seen by Urology, initially planned for stent placement but unable to do so due to ureteral stricture per urology may be due to previous radiation and not due to acute bleeding Right pleural effusion no sob, no hypoxia pathology negative for malignant cells fluid studies pending. culture negative Mild transaminitis LFTs trending down Acute kidney injury resolved HTN acceptable control on current therapies continue to hold home meds Left lower extremity DVT hold Eliquis for intrarenal hemorrhage SCPs Full code Requires ongoing hospitalization for close monitoring of renal function, CBC. Also ongoing specialist consultation Quality Stroke Does the patient have a stroke diagnosis?: No VTE Prior VTE?: Yes VTE Risk Level:: Medical - moderate - high VTE Device Contraindication: N/A - Device Ordered VTE Drug Contraindication: Treatment Not Indicated
[2023-12-21 15:26] LABS: Total Protein Pleural Fluid 4.1
[2023-12-21 15:27] LABS: LDH Pleural Fluid 406
[2023-12-21] MEDS: levoFLOXacin 500 MG TABLET PO (15:45)
[2023-12-21] MEDS: cefuroxime axetiL 500 MG TABLET PO (15:45)
[2023-12-21] MEDS: 0.9 % Sodium Chloride Flush 3 ML SYRINGE IVFLUSH (15:47)
[2023-12-22 04:00] VITALS: BP 140/65; PULSE 95; RESP 18; TEMP 36.6; O2SAT 96
[2023-12-22] MEDS: cefuroxime axetiL 500 MG TABLET PO (04:24)
[2023-12-22 06:45] LABS: Hematocrit 27.2 % (42.0-52.0); Hemoglobin 8.3 g/dl (14.0-18.0); Mean Corpuscular HGB Conc 30.5 g/dl (31.0-36.0); Mean Corpuscular Hemoglobin 27.6 pg (27.0-33.0); Mean Corpuscular Volume 90.4 fL (80.0-98.0); Mean Platelet Volume 7.8 fL (9.4-12.4); Platelet Count 365 X10*3/uL (160-400); Red Blood Count 3.01 X10*6/uL (4.60-5.80); Red Cell Distribution Width 17.2 % (11.0-16.0); White Blood Count 10.2 X10*3/uL (4.8-10.8)
[2023-12-22 08:00] VITALS: BP 135/63; PULSE 88; RESP 18; TEMP 36.6; O2SAT 98
[2023-12-22] MEDS: 0.9 % Sodium Chloride Flush 3 ML SYRINGE IVFLUSH (08:15)
--- NOTE | 2023-12-22 09:53 | PM.DS ---
DS: Providers Provider Date of Service: 12/22/23 Date of admission: 12/18/23 20:05 Date of discharge: 12/22/23 Primary care physician: Cade Enriquez MD Consults: 12/18/23 20:05 Consult to Urology Routine Consulting Provider: [facility] [place] U[facility] Reason for consultation: intrarenal hematoma with hemorrhagic ext into perinephric space Attending physician on discharge: Tre Diaz Discharging clinician: Loulou Lagunas DS: Diagnosis Discharge Diagnosis (1) Pleural effusion, right: Status: Acute (2) Renal hemorrhage, right: Status: Acute DS: Summary Hospital Course Hospital Course: From H&P on the day of admission 78-year-old male with history of hypertension, hyperlipidemia, history of left lower extremity DVT on Eliquis, right renal cyst, history of prostate cancer s/p radiation therapy presented to the ED earlier today for evaluation of right lower quadrant pain ongoing intermittently for the last 4 days. He reports the pain as a 5/10 discomfort, currently rated as a 0/10. Denies any history of prior symptoms. There has been associated nausea but no vomiting. He also states for the past month or so he has been experiencing shaking chills, night sweats, 1 documented fever of 101, fatigue, malaise, and bloating. Denies any unintentional weight loss. He denies any dysuria, hematuria, increased urinary frequency, decreased urinary output, shortness of breath, lightheadedness, or chest pain. He does endorse chronic cough that has not changed in quality or severity. On arrival, patient tachycardic to 127, now maintaining heart rate in the high 90s. Afebrile, no hypoxia or hypotension. There is a leukocytosis of 16.6. Initial hemoglobin 10.4, repeat 9.7. Creatinine 1.78, baseline around 1.27. BUN 36. Electrolyte levels normal. Glucose 163. Lactic acid 1.3. AST 97, ALT 95. Negative for COVID-19, RSV, influenza. CT of the chest shows moderate to large right-sided pleural effusion not previously seen. There is a stable 6 mm nodule in the left lower lung and stable calcified granuloma. CT of the abdomen/pelvis shows marked enlargement of the right kidney with heterogenous density and stranding in in the perinephric space most consistent with intrarenal hemorrhage with hemorrhagic extension or additional hemorrhagic involvement or into the perinephric space and right psoas muscle with unclear etiology. There is also tiny focus of prominent increased density raising the question of very small focus of arterial bleeding. There is also dilatation of the right ureter with sparing of the very distal portion of the ureter likely again reflecting extension of the hemorrhage into the ureter possibly causing partial obstruction. Acute on chronic anemia due to right-sided intrarenal hemorrhage with extension to perinephric space, psoas muscle repeat CTA abdomen pelvis unchanged. Empirically treated with IV Zosyn since admission, discussed with urology, will change to po levquin. ?of psoas abscess on repeat ct scan, less likely as afebrile, white count resolved, pain resolved. eliquis on hold (last taken 9/2 am) recommend to hold for [address] scan in 6 weeks and outpatient follow up with urology. Hydroureter/ureteral stricture Seen by Urology, initially planned for stent placement but unable to do so due to ureteral stricture. per urology based on appearance, likely due to previous radiation and not due to acute bleeding. probably chronic and therefore no acute intervention required at this time. Renal function has returned to baseline. Right pleural effusion no sob, no hypoxia fluid studies suggestive of exudative effusion. pathology negative for malignant cells. no pneumonia seen on imaging. recommend outpatient follow up cxr. Mild transaminitis LFTs trending down. appears chronic. recommend outpatient follow up Acute kidney injury resolved HTN meds held, outpatient follow up with PCP to resume Left lower extremity DVT hold Eliquis for intrarenal hemorrhage, urology recommends to hold until 12/31 Time Attestation Discharge Coordination Time (in mins): 40 Quality: Safe Use of Opioids Does Pt have an Active Cancer Diagnosis on the Problem List?: No Quality: Stroke Does the patient have a stroke diagnosis?: No Physical Exam Vital Signs: Vital Signs: Last Vital Signs Temp 97.8 F 12/22/23 08:00 Pulse 88 12/22/23 08:00 Resp 18 12/22/23 08:00 BP 135/63 12/22/23 08:00 Pulse Ox 98 12/22/23 08:00 O2 Del Method Room Air 12/22/23 08:00 BMI result Body Mass Index 25.7 Const: General: cooperative, comfortable, no acute distress, alert and awake Nutritional Appearance: average body habitus Orientation/consciousness: patient oriented x3 Resp: Effort & Inspection: normal respiratory effort, no respiratory distress and no use of accessory muscles Cardio: Rate: regular rate GI: Inspection: No distended Palpation (GI): Soft to palpation and nontender : General: Yes no CVA tenderness Back/Spine/Pelvis: Back: no CVA tenderness Neuro: General: patient oriented x3 Extrem: General: Yes no pedal edema DS: Data Data Completed and Pending Completed studies during hospitalization [Text1]: Pending at discharge 12/19/23 12:33 Cytology [PTH] Routine Procedures Insertion of Intraluminal Device into Inferior Vena Cava, Percutaneous Approach (12/08/21) Labs on day of discharge: Laboratory Results - last 24 hr 12/19/23 12/22/23 12:15 06:03 WBC 10.2 RBC 3.01 L Hgb 8.3 L Hct 27.2 L MCV 90.4 MCH 27.6 MCHC 30.5 L RDW 17.2 H Plt Count 365 MPV 7.8 L Absolute Nucleated RBC 0.000 Nucleated RBC % (auto) 0.0 Pleural Total Protein 4.1 Pleural Albumin 2.0 Pleural LDH 406 Preliminary micro results at discharge 12/19/23 12:15 Anaerobic Culture - Preliminary Pleural Fluid No growth to date. 12/18/23 15:53 Blood Culture - Preliminary Blood - Venous No growth after 48 hours. 12/18/23 15:43 Blood Culture - Preliminary Blood - Venous No growth after 48 hours. Discharge Plan Discharge Anticipated Discharge Date/Time: 12/22/23 11:11 Patient Disposition: Home, Self-Care Discharge Diagnosis: intrarenal hemorrhage pleural effusion MARYSE Referrals: Cade Enriquez MD [Primary Care Provider] - 1 Week Ramu Parish MD [Physician] - 3 Weeks Discharge Medications: New levofloxacin 500 mg Tablet 500 mg PO Q24H 6 Days Qty: 6 0RF Continued ascorbic acid (vitamin C) [Vitamin C] 500 mg Tablet 500 mg PO DAILY ferrous sulfate 142 mg (45 mg iron) Tablet Extended Release 142 mg PO DAILY cholecalciferol (vitamin D3) 10 mcg (400 unit) tablet 10 mcg PO DAILY multivitamin Tablet 1 tab PO DAILY vitamin E (dl, acetate) 450 mg (1,000 unit) capsule 450 mg PO DAILY Qty: 90 1RF Held Eliquis 2.5 mg tablet 2.5 mg PO BID 90 Days Qty: 180 3RF Hold Instructions: hold until 12/31 amlodipine-benazepril 5-40 mg capsule 1 cap PO DAILY 90 Days Qty: 90 3RF Hold Instructions: hold until follow up with PCP Discharge Orders: Discharge Order (Routine); Ordered 12/22/23 Ordered By: Loulou Lagunas Activity on Discharge: As tolerated Stand Alone Forms: Patient Portal Discharge page Print Language: German Other Ambulatory Orders: Complete Blood Count no Diff (Routine) Timeframe: 1 Week Facility: [facility] - Location: Laboratory Ordered By: Loulou Lagunas Care Plan Goals: see below Health Concerns: intrarenal hemorrhage MARYSE-resolved Pleural effusion Plan of Treatment: Complete course of antibiotics as prescribed Call to schedule follow-up with PCP in the next week if able- will need monitoring of hemaglobin/hematocrit, right pleural effusion, bleeding in kidney, blood pressure Call to schedule follow up with urology in 3 weeks repeat CBC in one week repeat CT scan of abdomen/pelvis w/ IV contrast in 6 weeks hold eliquis until 12/31 hold blood pressure medication until follow up with PCP return to the ED with any new or worsening symptoms Assessment: see discharge summary Discharge Date/Time: 12/22/23 13:00
--- NOTE | 2023-12-22 11:51 | MHC.CM.PN ---
Second IMM 12/22/23, Pt has been medically cleared for DC, he will go home via family, plan is self care.
[2023-12-22 11:52] VITALS: BP 142/65; PULSE 94; RESP 18; TEMP 36.8; O2SAT 97
[2023-12-22 13:27] LABS: Amylase Pleural Fluid 12; Glucose Pleural Fluid 92
--- NOTE | 2024-01-07 14:52 | P.CDIM_ITS ---
PROVIDER RESPONSE TEXT: To clarify, the appropriate diagnosis supported by the clinical indicators: After study the Sepsis has been ruled out QUERY TEXT: PHYSICIAN'S DOCUMENTATION REQUEST Date of Query: 01/02/2024 08:17 AM EDT Patient Name: Charles Lucero Admit Date: 12/19/2023 Dear Loulou Lagunas PA, RETROSPECTIVE QUERY A review of the medical record indicates additional documentation may be needed. Please review below and update the documentation accordingly. Clinical indicators: ED 12/17 - Clinical impression: Sepsis H&P 12/17 - Sepsis possibly due to large right pleural effusion. WBC 16.6 HR 102 Temp 98.8 RR 20 IV Zosyn PN 12/18 - Admitted for further management of Sepsis with large right pleural effusion. Discharge Summary 12/21 - Right pleural effusion, renal hemorrhage. Sepsis Systemic manifestations of infection, with 2 or more SIRS criteria which include: Fever > 100.4?F or hypothermia < 96.8?F Leukocytosis - WBC > 12,000 or leukopenia, WBC < 4,000, or > 10% bands Tachycardia- > 90 beats/minute Tachypnea- RR > 20 breaths/minute or PaCO2 < 32mmHg Based on the above information consistency and clarity of a diagnosis within the medical record and n ot noted in the Discharge Summary: Sepsis resolved, possible, probable, suspected etc. After study the Sepsis has been ruled out Other (explain) Clinically unable to determine (explain) Thank you, Manjula Cm, CCS, CDIS Use of terms such as suspected, likely, concern for, or probable (associated with a specific diagnosi s that is being evaluated, monitored, or treated as if it exists) are acceptable and can be coded in the inpatient se tting, when documented at the time of discharge. Please use your independent medical judgment in providing your response. THIS QUERY IS PART OF THE PERMANENT MEDICAL RECORD
== END 2023-12-22 13:00 | disposition home or self-care (01) | DRG 699 ==
LOC: HO.ED 16:28 → HO.EDOVER 20:27 → HO.IMC 23:43
PROVIDERS: Hospitalist; Nurse Practitioner Family; Physician Assistant; Urology; Admitting Provider Physician Assistant; Emergency Provider Emergency Medicine; PCP Internal Medicine; Visit Provider Physician Assistant Medical
PROC: BT1DZZZ Fluoroscopy of Right Kidney, Ureter and Bladder (ICD-10-PCS; principal; 2023-12-20 12:50)
DX: N30.40 Irradiation cystitis without hematuria (principal); J90 Pleural effusion, not elsewhere classified; N13.1 Hydronephrosis with ureteral stricture, not elsewhere classified; N17.9 Acute kidney failure, unspecified; N32.0 Bladder-neck obstruction; N28.89 Other specified disorders of kidney and ureter; D64.9 Anemia, unspecified; Z20.822 Contact with and (suspected) exposure to COVID-19; I10 Essential (primary) hypertension; E78.5 Hyperlipidemia, unspecified; Z86.718 Personal history of other venous thrombosis and embolism; Z79.01 Long term (current) use of anticoagulants; Z79.899 Other long term (current) drug therapy
CPT/HCPCS: 0241U; 32555; 36415; 71045; 71250; 74176; 74177; 80048; 80053; 81003; 82042; 82150; 82945; 83036; 83605; 83615; 83690; 83735; 83986; 84155; 84157; 85025; 85027; 85610; 87040; 87070; 87073; 87086; 87102; 87205; 88112; 88305; 89051; 93005; 99285; C1769; J0690; J0696; J2543; J3010; J7120; Q9967

== ENCOUNTER 2023-12-18 20:05 | Outpatient (BNV) | payer MEDICARE, SELFPAY | END 2023-12-19 11:30 | PROVIDERS: Admitting Provider Physician Assistant; Emergency Provider Emergency Medicine; PCP Internal Medicine; Visit Provider Radiology Diagnostic Radiology | DX: J90 Pleural effusion, not elsewhere classified (principal); Z48.813 Encounter for surgical aftercare following surgery on the respiratory system | CPT/HCPCS: 32555; 71045 ==

== ENCOUNTER → 2023-12-18 20:05 | Outpatient (BNV) | payer MEDICARE, SELFPAY | PROVIDERS: Admitting Provider Physician Assistant; Emergency Provider Emergency Medicine; PCP Internal Medicine; Visit Provider Urology | DX: N13.4 Hydroureter (principal); N13.1 Hydronephrosis with ureteral stricture, not elsewhere classified | CPT/HCPCS: 52341; 74420; 99223 ==

== ENCOUNTER → 2023-12-18 20:05 | Outpatient (BNV) | payer MEDICARE, SELFPAY | PROVIDERS: Admitting Provider Physician Assistant; Emergency Provider Emergency Medicine; PCP Internal Medicine; Visit Provider Physician Assistant | DX: J90 Pleural effusion, not elsewhere classified (principal); N28.89 Other specified disorders of kidney and ureter | CPT/HCPCS: 99223; 99232; 99233; 99239 ==

== ENCOUNTER 2023-12-26 12:23 | Outpatient (AMB) | payer MEDICARE, SELFPAY ==
--- NOTE | 2023-12-26 12:33 | A.OFFPC_ITS ---
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: No Accompanied by: Self / Same As Patient Allergies No Known Allergies Allergy (Verified 12/26/23 12:53) Medication List - Last Reconciled 12/26/23 by Cade Enriquez MD amlodipine-benazepril 5-40 mg 1 cap PO DAILY 90 days apixaban (Eliquis) 2.5 mg PO BID 90 days ascorbic acid (vitamin C) (Vitamin C) 500 mg PO DAILY cholecalciferol (vitamin D3) 10 mcg PO DAILY ferrous sulfate ER 142 mg PO DAILY levofloxacin 500 mg PO Q24H 6 days multivitamin 1 tab PO DAILY vitamin E (dl, acetate) 450 mg PO DAILY Tobacco use date assessed: 12/26/23 Fall risk assessment: No Falls in past year Last assessed Fall Risk: 12/26/23 Dental Screening Dental Screen Date: 12/26/23 Did you have a dental visit in the last 12 months?: No Did you have a dental problem in the last 6 months where you did not have access to dental care?: No Was dental information given to patient?: Patient has dentist HPI tcm hemorrhagic right hydronephrosis kidneys HPI Details Patient comes in today for her TCM follow up He was admitted to [facility] for a few days last week when he presented to the ER with on and off RLQ pain for about 4 days Also reports (+) nausea at times and over the past month, has had occasional fever and chills, on and off night sweats, increased fatigue, malaise and on and off abdominal bloating Patient was reportedly noted to be tachycardic on arrival in the ER and [place] [id number], anemia, elevated LFTs and elevated serum creatinine level He tested negative for COVID, influenza and RSV Abdominal/pelvic CT done revealed a marked enlargement of the right kidney with findings consistent with an intrarenal hemorrhage with hemorrhagic extension into the perinephric space and right psoas muscles, with possible partial obstruction of the right ureter He was started empirically on IV Zosyn and urology was consulted, who eventually switched him from IV Zosyn to oral Levofloxacin, which he is still finishing up His Eliquis was held and he was asked to stay off of this for about 10 days - to resume taking this around 12/28/2023 once it is verified with his PCP Patient states that he feels okay He denies any increased headaches or dizziness Denies any chest pains, no increased SOB although he has noticed that he gets wi nded easily lately No nausea/vomiting, no abdominal pain No change in bowel habits noted TCM TCM Information Date of Discharge 12/22/23 Discharged From [facility] Interactive Contact Date (Reference documentation from this date) 12/25/23 [facility] Medical History Hypertension Diverticulosis Overweight (BMI 25.0-29.9) History of prostate cancer Renal cyst Vitamin D deficiency Osteoarthritis of left knee Impaired fasting glucose Pure hypercholesterolemia Benign essential hypertension Radiation cystitis Surgical History Hx of right inguinal hernia repair (02/16/23) History of ankle surgery History of colonoscopy History of meniscectomy of left knee (~06/05/12) Hx of prostatectomy Hx of umbilical hernia repair Family History Father Cancer Mother Colon cancer Social History Household Members: Spouse Housing: House Are you a primary care transitions manager to a significant other at home: No Do you presently have visiting nurse or other home services: No Alcohol intake: current Alcohol intake frequency: 0-2 drinks per day Alcohol type: beer Comment: . 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 1. Little interest or pleasure in doing things: not at all 2. Feeling down, depressed, or hopeless: not at all 3. Trouble falling or staying asleep, or sleeping too much: not at all 4. Feeling tired or having little energy: not at all 5. Poor appetite or overeating: not at all 6. Feeling bad about yourself - or that you are a failure or have let yourself or your family down: not at all 7. Trouble concentrating on things, such as reading the newspaper or watching television: not at all 8. Moving or speaking so slowly that other people could have noticed. Or the opposite - being so fidgety or restless that you have been moving around a lot more than usual: not at all 9. Thoughts that you would be better off or of hurting yourself in some way: not at all Total score: 0 Depression Screening Interpretation: Negative Depression Screening Done: Yes 81146 - PHQ-9 Billing: Yes Source: Developed by Drs. Jean Resendez, Larisa Alonzo, Jaspal Boyce and colleagues, with an educational cheryl from ice. Thrive Questionnaire Date Thrive assessed: 12/26/23 I am a: Patient What is your living situation today?: I have a steady place to live Within the past 12 months, did the food you bought not last and you didn't have the money to get more?: Never true Within the past 12 months, did you worry whether your food would run out before you got money to buy more?: Never true Do you have trouble paying for medicines?: No Do you have trouble getting transportation to medical appointments?: No Do you have trouble paying your heating and electricity bill?: No Do you have trouble taking care of your child, family member or friend?: No Do you have trouble with day-to-day activities such as bathing, preparing meals, shopping, managing finances, etc.?: No Are you currently unemployed and looking for a job?: No Are you interested in more education?: No Please select the resources that you would like help with: None Currently or been in a relationship where the following occur: No concerns rep orted THRIVE Score: 0 AUDIT C Alcohol Use Questionnaire (AUDIT-C) 1. How often do you have a drink containing alcohol?: 4 or more times a week 2. How many drinks containing alcohol do you have on a typical day when you are drinking?: 1 or 2 3. How often do you have six or more drinks on one occasion?: Never Total Score: 4 Score Reviewed/Action Taken: Yes ROSAMARIA-7 AMB Questionnaire ROSAMARIA-7 Date ROSAMARIA - 7 assessed: 12/26/23 Feeling nervous, anxious, or on edge: 0 = Not at all Not being able to stop or control worryin = Not at all Worrying too much about different things: 0 = Not at all Trouble relaxin = Not at all Being so restless that it is hard to sit still: 0 = Not at all Becoming easily annoyed or irritable: 0 = Not at all Feeling afraid as if something awful might happen: 0 = Not at all Total ROSAMARIA-7 score (0-4 normal; 5-9 mild; 10-14 moderate; 15-21 severe): 0 Source: Developed by Drs. Jean Resendez, Larisa Alonzo, Jaspal Boyce and colleagues, with an educational cheryl from ice. Review of Systems Const Denies chills, Reports fatigue, Denies fever(s) and Denies headache(s) ENT Denies dysphagia, Denies dizziness, Denies otalgia, Denies headache(s), Denies neck pain, Denies odynophagia and Denies sore throat Card Denies chest pain, Denies rapid heart rate, Denies irregular heart rhythm, Denies palpitations and Reports dyspnea on exertion (mild) Resp Denies chest congestion, Denies cough, Reports dyspnea on exertion (mild) and Denies wheezing GI Denies abdominal pain, Denies constipation, Denies dysphagia, Denies heartburn, Denies diarrhea, Denies nausea, Denies odynophagia and Denies vomiting Denies hematuria, Denies difficulty urinating, Denies dysuria and Denies urinary frequency Musc Denies back pain, Denies arthralgias and Denies neck pain Skin/Breast Denies rash Neuro Denies dizziness and Denies headache(s) Endo Reports fatigue and Denies palpitations Aller/Immun Denies wheezing Physical exam (Primary Care) Vital Signs: Last Vital Signs Pulse 99 12/26/23 12:34 BP 132/62 12/26/23 12:34 Pulse Ox 96 12/26/23 12:34 Oxygen Delivery Method Room Air 12/26/23 12:34 BMI result Body Mass Index 24.7 Tobacco/Smoking Status: Tobacco use Status Tobacco use date assessed 12/26/23 12/26/23 12:42 Patient Tobacco Use Status Never used Tobacco 12/26/23 12:42 e-Cigarette/Vaping Use Never Used 12/26/23 12:42 PHQ-9: PHQ-9 Score PHQ-9: Total score 0 12/26/23 12:57 Depression Screening Interpretation: Negative Thrive Assessment: Date of Thrive Assessment Date Thrive assessed 12/26/23 12/26/23 12:42 Currently or been in a relationship where the following occur: No concerns reported Const General: no acute distress and alert HENMT Ears: TM's normal bilaterally and EAC's normal Throat: Yes posterior oropharynx normal and Yes tonsils normal (no TP congestion) Neck Neck: Yes no lymphadenopathy and Yes supple Thyroid: Thyroid normal Resp Auscultation: clear to auscultation bilaterally, no rales and no wheezes Cardio Rate: regular rate Rhythm: regular rhythm Heart sounds: no murmurs GI Palpation (GI): Soft to palpation and nontender Auscultation: normal bowel sounds General: Yes no CVA tenderness Back/Spine/Pelvis Back: no CVA tenderness Thoracic/Lumbar Spine: lumbar spinal tenderness (mild) Skin Rashes: no rashes Extrem General: Yes no clubbing, cyanosis or edema Results Reviewed Results Reviewed: Laboratory Tests 12/18/23 12/18/23 12/19/23 09:23 15:43 06:00 WBC Hgb Hct Plt Count Sodium Potassium Creatinine Estimated GFR Fasting Glucose Hemoglobin A1c % 5.2 Calcium Magnesium 2.2 AST ALT Lipase 34 Ur Specific Oriental 1.020 Urine Protein Trace Urine Glucose (UA) Negative Urine Blood Negative Urine Nitrite Negative Ur Leukocyte Esterase Negative 12/21/23 12/22/23 06:10 06:03 WBC 10.2 Hgb 8.3 L Hct 27.2 L Plt Count 365 Sodium 138 Potassium 4.5 Creatinine 1.24 Estimated GFR 56 Fasting Glucose 118 H Hemoglobin A1c % Calcium 8.6 Magnesium AST 58 H ALT 76 H Lipase Ur Specific Oriental Urine Protein Urine Glucose (UA) Urine Blood Urine Nitrite Ur Leukocyte Esterase Assessment and Plan Assessment & Plan (1) Renal hemorrhage, right: Code(s): N28.89 - Other specified disorders of kidney and ureter Plan: Seen on abdominal/pelvic CT, which revealed (+) marked enlargement of the right kidney with findings consistent with an intrarenal hemorrhage with hemorrhagic extension into the perinephric space and right psoas muscles, with possible partial obstruction of the right ureter His Apixaban was held and he will continue to stay off this for a total of 10 days and if stable and his repeat CBC shows improving or stable anemia, he will resume Apixaban 2.5 mg BID after 01/01/2024 We will have him go for repeat abdominal and pelvic CT in 6 weeks for follow up Follow up with urology as scheduled (2) Anemia: Code(s): D64.9 - Anemia, unspecified Qualifiers: Anemia type: unspecified type Qualified Code(s): D64.9 - Anemia, unspecified Plan: His most recent H/H is still very low at 8.3/27.2 a few days ago on 12/22/2023 - this is likely due to a combination of acute blood loss and iron deficiency, as his RBC indices are all very low Continue Ferrous Sulfate ER 142 mg QD for now He is due to have his CBC rechecked in a few days for follow up (3) Pleural effusion, right: Code(s): J90 - Pleural effusion, not elsewhere classified Plan: Will send patient for repeat chest x-rays for follow up He currently still feels winded (MINA) easily but denies any increase in his respiratory symptoms (4) Hyperkalemia: Code(s): E87.5 - Hyperkalemia Plan: Resolved on follow up labs done on 12/21/2023, with serum potassium back to normal at 4.5 Plan To return as scheduled in March 2024 for his annual physical examination Orders: Orders XR chest 2V 12/29/23 J90 - Pleural effusion, not elsewhere classified CT abdomen pelvis w IV con 02/01/24 N28.89 - Other specified disorders of kidney and ureter Coding Level of Care Code TCM Mod MDM <= 7 Days Diagnoses Renal hemorrhage, right N28.89 Anemia, unspecified type D64.9 Anemia type: unspecified type Pleural effusion, right J90 Hyperkalemia E87.5
[2023-12-26 12:34] VITALS: BP 132/62; PULSE 99; O2SAT 96; BMI 24.7
== END 2023-12-26 13:17 | disposition home or self-care (01) ==
PROVIDERS: PCP Internal Medicine; Visit Provider Internal Medicine
DX: N28.89 Other specified disorders of kidney and ureter (principal); D64.9 Anemia, unspecified; J90 Pleural effusion, not elsewhere classified; E87.5 Hyperkalemia
CPT/HCPCS: 99495

== ENCOUNTER 2023-12-29 09:42 | Outpatient (REF) | payer MEDICARE, SELFPAY ==
--- NOTE | ~2023-12-29 | XR_ITS ---
EXAMINATION: XR CHEST CLINICAL INFORMATION: J90 - Pleural effusion, not elsewhere classified COMPARISON: 12/19/2023, CT chest 12/18/2023. TECHNIQUE: PA and lateral FINDINGS: Cardiac, hilar, and mediastinal contours are normal. Aside from stable mild right perihilar scarring, the lungs are clear. Trace blunting right costophrenic angle may reflect pleural scarring versus a tiny amount of residual pleural fluid. No left effusion. No pneumothorax. No suspicious osseous abnormalities. Mild degenerative changes in the spine, unchanged. XR/XR chest 2V IMPRESSION: 1. No active pulmonary disease. 2. Trace residual present pleural effusion suspected. Electronically signed by: Avi Luz MD 03/11/2024 09:54 AM EST
[2023-12-29 09:53] LABS: MANUAL DIFF FLAG NO
[2023-12-29 10:55] LABS: Estimated Average Glucose 114 mg/dL; Hemoglobin A1c % 5.6 % (<6.0)
[2023-12-29 11:18] LABS: Basophils Percent Auto 0.4 % (0-2); Eosinophils Absolute Auto 0.1 X10*3/uL (0.0-0.4); Eosinophils Percent Auto 1.2 % (0-4); Hematocrit 33.4 % (42.0-52.0); Hemoglobin 10.5 g/dl (14.0-18.0); Imm Gran Abs Auto 0.04 X10*3/uL (0.00-0.03); Imm Gran Pct Auto 0.5 % (0.0-0.4); Lymphocytes Absolute Auto 1.3 X10*3/uL (1.2-4.9); Lymphocytes Percent Auto 17.1 % (20-40); Mean Corpuscular HGB Conc 31.4 g/dl (31.0-36.0); Mean Corpuscular Hemoglobin 28.2 pg (27.0-33.0); Mean Corpuscular Volume 89.8 fL (80.0-98.0); Mean Platelet Volume 7.7 fL (9.4-12.4); Monocytes Absolute Auto 0.6 X10*3/uL (0.1-1.2); Monocytes Percent Auto 7.3 % (2-11); Neutrophils Absolute Auto 5.7 x10*3/uL (2.0-8.3); Neutrophils Percent Auto 73.5 % (45-73); Platelet Count 492 X10*3/uL (160-400); Red Blood Count 3.72 X10*6/uL (4.60-5.80); Red Cell Distribution Width 17.3 % (11.0-16.0); White Blood Count 7.7 X10*3/uL (4.8-10.8)
[2023-12-29 11:20] LABS: Alanine Aminotransferase 38 U/L (0-40); Albumin Level 3.1 g/dL (3.5-5.0); Alkaline Phosphatase 69 U/L (39-117); Anion Gap 12 (12-20); Aspartate Amino Transferase 24 U/L (5-37); Bilirubin Total 0.4 mg/dL (0.0-1.0); Blood Urea Nitrogen 20 mg/dL (9-16); Carbon Dioxide 27 mmol/L (22-29); Chloride 105 mmol/L (96-108); Cholesterol 186 mg/dL (<200); Estimated Glomerular Filt Rate 48; Glucose Fasting 158 mg/dL (60-99); HDL Cholesterol 43 mg/dL (>40); LDL Cholesterol Calculated 128 mg/dL (<100); Potassium 4.3 mmol/L (3.3-5.1); Sodium 140 mmol/L (135-145); Total Protein 8.1 g/dL (6.5-8.0); Triglycerides 78 mg/dL (<150)
[2023-12-29 11:36] LABS: TSH reflex Free T4 0.66 uIU/mL (0.32-4.0); Vitamin D 25-OH Total 21.4 ng/mL (>30)
[2023-12-29 11:37] LABS: Prostate Specific Antigen < 0.10 ng/mL (<0.05-4.0)
== END 2023-12-29 09:43 | disposition home or self-care (01) ==
LOC: HO.XRAY 09:42
PROVIDERS: PCP Internal Medicine; Visit Provider Internal Medicine
DX: Z00.00 Encounter for general adult medical examination without abnormal findings (principal); J90 Pleural effusion, not elsewhere classified; E78.00 Pure hypercholesterolemia, unspecified; E55.9 Vitamin D deficiency, unspecified; D64.9 Anemia, unspecified; R73.01 Impaired fasting glucose; N40.0 Benign prostatic hyperplasia without lower urinary tract symptoms; Z12.5 Encounter for screening for malignant neoplasm of prostate
CPT/HCPCS: 36415; 71046; 80053; 80061; 82306; 83036; 84153; 84443; 85025

== ENCOUNTER → 2023-12-29 09:54 | Outpatient (BNV) | payer MEDICARE, SELFPAY | PROVIDERS: PCP Internal Medicine; Visit Provider Radiology Diagnostic Radiology | DX: J90 Pleural effusion, not elsewhere classified (principal) | CPT/HCPCS: 71046 ==

== ENCOUNTER 2024-01-01 11:04 | Outpatient (REF) | payer MEDICARE, SELFPAY ==
[2024-01-01 11:12] LABS: Appearance Urine Clear; Color Urine Yellow; Glucose Urine UA Negative (Negative); Leukocyte Esterase Urine Negative (Negative); Nitrite Urine Negative (Negative); PH 6.5 (5.0-9.0); Specific Gravity - Urine 1.015 (1.005-1.025); Urine Blood Negative (Negative); Urine Ketones Negative (Negative); Urine Protein Negative (Neg-Trace)
== END 2024-01-01 11:05 | disposition home or self-care (01) ==
LOC: HO.LNP 11:04
PROVIDERS: Visit Provider Internal Medicine
DX: Z00.00 Encounter for general adult medical examination without abnormal findings (principal); R30.0 Dysuria
CPT/HCPCS: 81003

== ENCOUNTER 2024-01-17 12:53 | Outpatient (AMB) | payer MEDICARE, SELFPAY ==
--- NOTE | 2024-01-17 13:08 | A.OFFVIS_ITS ---
Intake Visit Reasons: kidney cysts/ER follow up/sepsis Intake Note: Patient is present for KIDNEY CYSTS/ER F/U SEPSIS Urology Medication:VITAMIN E Antibiotic Allergy:NONE Blood Thinner:ELIQUIS Fire Information Officer Required: No Allergies No Known Allergies Allergy (Verified 01/17/24 13:09) HPI Comments Details: Charles is a very pleasant male. He is a patient of Dr. Enriquez. He is seen for the following urologic conditions - prostate cancer - radiation cystitis - renal cyst Had been seen last month for yearly follow-up Recent admission to hospital with urosepsis Ruptured right complex cyst Complication of anticoagulation Has recovered from a symptom point of view Upcoming repeat CT scan Trial tolterodine for urinary urgency Three pads per day Prior discussion regarding sling versus artificial sphincter versus penile clamp Information provided regarding yulisa previously He is not really interested No bleeding since last appointment 12 month follow-up PSA Continue on vitamin E Prostate cancer 2004 - radical prostatectomy [facility]. Postprocedure radiation required 2009 Laboratories - 10/04 PSA < 0.1, <12/05 <0.1, 06/08 <0.1, 05/09 <0.1, 11/06 <0.1, 05/10 <0.1, 12/08 <0.1 Renal cyst Followed by MRI. Complex cyst right side. No enhancement. Yearly ultrasound. Imaging - 09/03 ULTRASOUND RIGHT COMPLEX CYST 7 X 8 CM, left 2 simple cysts Radiation cystitis Diagnosis cystoscopy June 2020 Hemorrhagic cystitis responded to tranexamic acid with vitamin E Continue with vitamin-E Cytology 06/07 NAD Cystoscopy 08/06 hemorrhagic cystitis and radiation cystitis lower half bladder 01/06 episode of hematuria retention and Morales catheter placed 01/06 underwent hyperbaric oxygen Urinary leakage 3 pads a day [facility] Medical History Hypertension Diverticulosis Overweight (BMI 25.0-29.9) History of prostate cancer Renal cyst Vitamin D deficiency Osteoarthritis of left knee Impaired fasting glucose Pure hypercholesterolemia Benign essential hypertension Radiation cystitis Surgical History Hx of right inguinal hernia repair (02/16/23) History of ankle surgery History of colonoscopy History of meniscectomy of left knee (~06/05/12) Hx of prostatectomy Hx of umbilical hernia repair Family History Father Cancer Mother Colon cancer Social History Household Members: Spouse Housing: House Are you a primary resident care coordinator to a significant other at home: No Do you presently have visiting nurse or other home services: No Alcohol intake: current Alcohol intake frequency: 0-2 drinks per day Alcohol type: beer Comment: . 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 Cognitive needs: No Hearing needs: No Vision needs: Yes Review of Systems Const Denies chills and Denies fever(s) Card Reports no additional complaints and Denies syncope Resp Denies cough GI Denies abdominal pain and Denies heartburn Reports as per HPI and Denies change in libido Neuro Denies syncope Psych Denies change in libido Endo Denies change in libido Physical Exam Const General: cooperative, healthy appearing, comfortable and no acute distress Orientation/consciousness: patient oriented x3 HEENT Face and sinus: Yes normal facial exam Mouth: moist mucous membranes Neck Neck: Yes normal visual inspection, Yes full ROM and Yes trachea midline Chest Chest palpation & inspection: normal inspection of the chest Resp Effort & Inspection: normal respiratory effort, able to speak in complete sentences and no respiratory distress GI Inspection: Yes normal to inspection Back/Spine/Pelvis Cervical Spine: normal cervical lordosis Thoracic/Lumbar Spine: thoracic and lumbar spine normal to inspection Skin General skin exam: no rashes or lesions noted Neuro General: patient oriented x3, gait normal, tone normal and moves all extremities Extrem General: Yes normal to inspection and Yes capillary refill normal Results AMB Urinalysis, Automated UA Leukoctes 0 Ebonie/uL Last Edit by ANA Williamson on 01/17/24 13:21 UA Nitrite Negative Last Edit by ANA Williamson on 01/17/24 13:21 UA Urobilinogen 0.2 mg/dL Last Edit by ANA Williamson on 01/17/24 13:2 1 UA Protein 0 mg/dL Last Edit by ANA Williamson on 01/17/24 13:21 UA pH 6.0 Last Edit by ANA Williamson on 01/17/24 13:21 UA Blood 0 Dong/uL Last Edit by ANA Williamson on 01/17/24 13:21 UA Specific [place] 1.020 Last Edit by ANA Williamson on 01/17/24 13: 21 UA Ketone Negative Last Edit by ANA Williamson on 01/17/24 13:21 UA Bilirubin 0 mg/dL Last Edit by ANA Williamson on 01/17/24 13:21 UA Glucose 0 mg/dL Last Edit by ANA Williamson on 01/17/24 13:21 Results Reviewed Results Reviewed: Laboratory Last Values Urine pH (Auto) 6.0 01/17/24 13:21 Specific [place] (Auto) 1.020 01/17/24 13:21 Urine Protein (Auto) 0 mg/dL 01/17/24 13:21 Glucose (UA)(Auto) 0 mg/dL 01/17/24 13:21 Urine Ketones (Auto) Negative 01/17/24 13:21 Urine Blood (Auto) 0 Dong/uL 01/17/24 13:21 Urine Nitrite (Auto) Negative 01/17/24 13:21 Urine Bilirubin (Auto) 0 mg/dL 01/17/24 13:21 Urine Urobilinogen (Auto) 0.2 mg/dL 01/17/24 13:21 Leukocyte Esterase (Auto) 0 Ebonie/uL 01/17/24 13:21 Assessment & Plan Assessment & Plan (1) Urinary urgency: Code(s): R39.15 - Urgency of urination Category: Medical (2) Prostate cancer: Comment: Radical prostatectomy 2003, external beam radiation 2009 Code(s): C61 - Malignant neoplasm of prostate Category: Medical (3) Ruptured cyst of kidney: Code(s): N28.1 - Cyst of kidney, acquired Category: Medical Plan 2 month follow-up imaging Trial tolterodine Orders: Orders AMB Urinalysis Automated Today Z13.9 - Encounter for screening, unspecified Medications: New tolterodine ER 2 mg PO DAILY 30 days 30 caps 1RF N28.1 - Cyst of kidney, acquired, R39.15 - Urgency of urination Patient Instructions: Imaging studies, laboratory and physical exam results were discussed and reviewed in detail. No major barriers to patient understanding were identified. An opportunity to ask questions regarding the treatment plan was provided. All questions were answered. The patient expressed understanding and agreement with the above treatment plan. The patient is aware they should contact our office by phone for worsening of their current condition or the appearance of new urologic symptoms. Compliance is encouraged with any medications and followup testing that is ordered. It is a privilege to participate in the urologic care of your patient. If you have any questions or concerns regarding treatment for the above conditions, or other urologic issues, please do not hesitate to contact me. The office telephone contact is [phone]. This note is constructed using voice recognition software. While every effort has been made to ensure accuracy director compensation errors may have been included. Yours sincerely, Dr Ruperto Trevino MD, [facility] - Urology Providers of Expert, Compassionate Care for the Genitourinary System Coding Level of Care Code Est Pt Level 4 (79085) Diagnoses Urinary urgency R39.15 Prostate cancer C61 Ruptured cyst of kidney N28.1
== END 2024-01-17 13:44 | disposition home or self-care (01) ==
PROVIDERS: PCP Internal Medicine; Visit Provider Urology
DX: Z13.9 Encounter for screening, unspecified (principal)
CPT/HCPCS: 99214

== ENCOUNTER → 2024-01-17 12:53 | Outpatient (BNVA) | payer MEDICARE, SELFPAY | PROVIDERS: PCP Internal Medicine; Visit Provider Urology | DX: R39.15 Urgency of urination (principal); C61 Malignant neoplasm of prostate; N28.1 Cyst of kidney, acquired | CPT/HCPCS: 81003; 99212 ==

== ENCOUNTER 2024-02-22 07:45 | Outpatient (REF) | payer MEDICARE, SELFPAY ==
--- NOTE | ~2024-02-22 | CT_ITS ---
EXAMINATION: CT ABDOMEN AND PELVIS WITH CONTRAST CLINICAL INFORMATION: Other specified disorders of the kidneys and ureter. COMPARISON: CT dated December 19, 2023 TECHNIQUE: Multidetector volumetric images were obtained from the superior aspect of the liver through the pubic symphysis following administration 85 mL of Omnipaque 350 intravenous contrast. Sagittal and coronal reformatted images were obtained on the technologist's workstation. Oral contrast: No This CT examination was performed using dose optimization techniques as appropriate, variously including the following: *Automated exposure control *Adjustment of mA and/or kV according to patient size (this includes techniques or standardized protocols for targeted exams where dose is matched to indication/reason for exam; i.e. extremities or head) *Use of iterative reconstruction technique DLP: 434 mGy-cm FINDINGS: Submitted for interpretation on March 22, 2024. LUNG BASES: There is a 4 mm noncalcified pulmonary nodule in the periphery of the left lung base. There is a 3 mm calcified pulmonary nodule in the periphery of the left lung base. No acute airspace disease in the included lungs. LIVER, GALLBLADDER, AND BILIARY TREE: Liver measures 15 cm. There are few scattered hypodensities measuring less than 1 cm in the parenchyma the largest measures 9 mm, right hepatic lobe no fully evaluated. Portal vein and hepatic veins are patent. Intrahepatic portion of the IVC is patent. No pericholecystic fluid collection or gallbladder wall thickening. No intrahepatic or extrahepatic biliary ductal dilatation. PANCREAS: No focal mass. No peripancreatic fluid collection. No main pancreatic ductal dilatation. SPLEEN: 11 cm. No focal lesion. ADRENAL GLANDS: No nodular lesions. KIDNEYS AND URETERS: Right kidney: Renal cortical thinning with decreased enhancement pattern when compared with the contralateral side. Dilatation of the pelvicalyceal system and ureter, moderate to severe. Focal, 5 cm length segmental stenosis of the distal right ureter with the proximal dilatation. Urothelial enhancement throughout the right collecting system. Multifocal, different sizes round and ovoid shaped low density lesions in an exophytic location. The largest of these lesions measure 5 cm. There is a focal 5 cm irregularly-shaped mixed fluid, hyperdense and fat density lesion in the posterior lower pole. There is a 1.5 cm exophytic hyperdensity in the posterior upper pole. There is a 3 cm in maximum length peripheral enhancing fluid collection/low density collection in the medial right perinephric/pararenal compartment extending into the insertion of the right psoas muscle. There is a focal calcification in the pelvicalyceal system, upper pole midportion. Multiple lymphadenopathy in the right renal hilum extending into the aortocaval retroperitoneum, the largest measures 1.2 cm. Left kidney: Normal enhancement pattern of the parenchyma. Multifocal exophytic and cortical medullary and renal cortex low density lesions, the largest measures 3.4 cm in the posterior midportion. No hydronephrosis. No dilatation of the ureter. BLADDER: Fluid-filled. No gross calculus, intraluminal. GASTROINTESTINAL TRACT: There is a 2 cm ill-defined soft tissue fullness in the fundus of the stomach. There is abundant stool within the large intestine. There are numerous diverticula in the left hemicolon mostly in the sigmoid colon. No pericolonic edema pattern. No ascites. No intestinal obstruction pattern. No pneumatosis intestinalis. Appendix is normal. No pneumoperitoneum. ABDOMINAL WALL: Status post periumbilical mesh procedure. Fluid density in the right inguinal canal. LYMPH NODES: Lymphadenopathy, retroperitoneal, the largest measures 1.2 cm. VASCULAR: No aneurysm or dissection, abdominal aorta. Calcified plaque throughout the abdominal aorta wall, mesenteric artery origin and main renal arteries. Mixed plaques in the right iliac arteries. Calcified plaques in the pudendal arteries. PELVIC VISCERA: I do not see the prostate gland or the seminal vesicles. Radiopaque rings around the penis with a short appearance. OSSEOUS STRUCTURES: Multilevel thoracolumbar spondylosis more conspicuous at L4-5 and L5-S1 and to a lesser extent L3-4 levels. Osteopenia versus osteoporosis. No acute fracture or gross listhesis in the axial skeleton. CT/CT abdomen pelvis w IV con IMPRESSION: Overall improved appearance of the mixed inflammatory versus infectious process with decreased abscesses in the right retroperitoneum/right psoas muscle. Persistent right hydroureteronephrosis secondary to a focal segmental stricture/stenosis of the distal right ureter. Fleischner guidelines were followed. Electronically signed by: Zoran Sibley MD 03/22/2024 08:31 AM TEJAL
[2024-02-22] MEDS: iohexoL 350 MG/ML 100 ML INFUS..BTL IV (09:03)
[2024-02-22 14:44] LABS: GFR POC > 60
== END 2024-02-22 07:46 | disposition home or self-care (01) ==
LOC: HO.CT 07:45
PROVIDERS: PCP Internal Medicine; Visit Provider Internal Medicine
DX: N28.89 Other specified disorders of kidney and ureter (principal)
CPT/HCPCS: 74177; 82565; Q9967

== ENCOUNTER → 2024-02-22 07:45 | Outpatient (BNV) | payer MEDICARE, SELFPAY | PROVIDERS: PCP Internal Medicine; Visit Provider Radiology Diagnostic Radiology | DX: N28.89 Other specified disorders of kidney and ureter (principal) | CPT/HCPCS: 74177 ==

== ENCOUNTER 2024-03-16 07:53 | Outpatient (REF) | payer MEDICARE, SELFPAY ==
[2024-03-16 08:35] LABS: Blood Urea Nitrogen 26 mg/dL (9-16); Estimated Glomerular Filt Rate 58
== END 2024-03-16 07:54 | disposition home or self-care (01) ==
LOC: HO.LAB 07:53
PROVIDERS: PCP Internal Medicine; Visit Provider Internal Medicine
DX: N28.89 Other specified disorders of kidney and ureter (principal)
CPT/HCPCS: 36415; 82565; 84520

== ENCOUNTER 2024-03-21 10:09 | Outpatient (AMB) | payer MEDICARE, SELFPAY ==
[2024-03-21 10:23] VITALS: BP 122/60; PULSE 79; O2SAT 98; BMI 26.0
--- NOTE | 2024-03-21 10:23 | A.OFFPC_ITS ---
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: No Accompanied by: Self / Same As Patient Allergies No Known Allergies Allergy (Verified 03/21/24 10:34) Medication List - Last Reconciled 03/21/24 by Cade Enriquez MD amlodipine-benazepril 5-40 mg 1 cap PO DAILY 90 days apixaban (Eliquis) 2.5 mg PO BID 90 days ascorbic acid (vitamin C) (Vitamin C) 500 mg PO DAILY cholecalciferol (vitamin D3) 10 mcg PO DAILY ferrous sulfate ER 142 mg PO DAILY levofloxacin 500 mg PO Q24H 6 days multivitamin 1 tab PO DAILY tolterodine ER 2 mg PO DAILY 30 days vitamin E (dl, acetate) 450 mg PO DAILY Tobacco use date assessed: 03/21/24 Fall risk assessment: No Falls in past year Last assessed Fall Risk: 03/21/24 Dental Screening Dental Screen Date: 03/21/24 Did you have a dental visit in the last 12 months?: No Did you have a dental problem in the last 6 months where you did not have access to dental care?: No Was dental information given to patient?: No HPI ANNUAL HPI Details Patient comes in today for his annual physical examination States that he feels okay He denies any headaches or dizziness Denies any chest pains, no increased shortness of breath No nausea/vomiting, no abdominal pain No change in bowel habits noted He denies any acute urinary symptoms He had his follow-up labs done a couple months ago and has no other follow-up labs done since - to discuss his results He had his screening colonoscopy last done in 2021 and was advised that he should not need any follow-up colonoscopy due to his age He would like to know how his abdominal and pelvic CT done last month came out He is also requesting for a repeat venous Doppler of his left leg to reassess his DVT [facility] Medical History (Updated 03/24/24 @ 16:37 by Cade Enriquez MD) Radiation cystitis Hypertension Diverticulosis Overweight (BMI 25.0-29.9) History of prostate cancer Renal cyst Vitamin D deficiency Osteoarthritis of left knee Impaired fasting glucose Pure hypercholesterolemia Benign essential hypertension Surgical History (Updated 03/21/24 @ 10:44 by Cade Enriquez MD) Hx of right inguinal hernia repair (02/16/23) History of ankle surgery History of colonoscopy History of meniscectomy of left knee (~06/05/12) Hx of prostatectomy Hx of umbilical hernia repair Family History Father Cancer Mother Colon cancer Social History Household Members: Spouse Housing: House Are you a primary home care music therapist to a significant other at home: No Do you presently have visiting nurse or other home services: No Alcohol intake: current Alcohol intake frequency: 0-2 drinks per day Alcohol type: beer Comment: . 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 1. Little interest or pleasure in doing things: not at all 2. Feeling down, depressed, or hopeless: not at all 3. Trouble falling or staying asleep, or sleeping too much: not at all 4. Feeling tired or having little energy: not at all 5. Poor appetite or overeating: not at all 6. Feeling bad about yourself - or that you are a failure or have let yourself or your family down: not at all 7. Trouble concentrating on things, such as reading the newspaper or watching television: not at all 8. Moving or speaking so slowly that other people could have noticed. Or the opposite - being so fidgety or restless that you have been moving around a lot more than usual: not at all 9. Thoughts that you would be better off or of hurting yourself in some way: not at all Total score: 0 Depression Screening Interpretation: Negative Depression Screening Done: Yes 97861 - PHQ-9 Billing: Yes Source: Developed by Drs. Jean Resendez, Larisa AlonzoJaspal and colleagues, with an educational cheryl from [employer]. Thrive Questionnaire Date Thrive assessed: 03/21/24 I am a: Patient What is your living situation today?: I have a steady place to live Within the past 12 months, did the food you bought not last and you didn't have the money to get more?: Never true Within the past 12 months, did you worry whether your food would run out before you got money to buy more?: Never true Do you have trouble paying for medicines?: No Do you have trouble getting transportation to medical appointments?: No Do you have trouble paying your heating and electricity bill?: No Do you have trouble taking care of your child, family member or friend?: No Do you have trouble with day-to-day activities such as bathing, preparing meals, shopping, managing finances, etc.?: No Are you currently unemployed and looking for a job?: No Are you interested in more education?: No Please select the resources that you would like help with: None Currently or been in a relationship where the following occur: No concerns reported THRIVE Score: 0 AUDIT C Alcohol Use Questionnaire (AUDIT-C) 1. How often do you have a drink containing alcohol?: 4 or more times a week 2. How many drinks containing alcohol do you have on a typical day when you are drinking?: 1 or 2 3. How often do you have six or more drinks on one occasion?: Never Total Score: 4 Score Reviewed/Action Taken: Yes ROSAMARIA-7 AMB Questionnaire ROSAMARIA-7 Date ROSAMARIA - 7 assessed: 03/21/24 Feeling nervous, anxious, or on edge: 0 = Not at all Not being able to stop or control worryin = Not at all Worrying too much about different things: 0 = Not at all Trouble relaxin = Not at all Being so restless that it is hard to sit still: 0 = Not at all Becoming easily annoyed or irritable: 0 = Not at all Feeling afraid as if something awful might happen: 0 = Not at all Total ROSAMARIA-7 score (0-4 normal; 5-9 mild; 10-14 moderate; 15-21 severe): 0 Source: Developed by Drs. Jean Resendez, Jaspal Veliz and colleagues, with an educational cheryl from [employer]. Review of Systems Const Denies chills, Denies fatigue, Denies fever(s), Denies headache(s), Denies malaise and Denies weakness Eyes Denies blurry vision, Denies change in vision, Denies irritation and Denies itchy eyes ENT Denies dysphagia, Denies dizziness, Denies otalgia, Denies headache(s), Denies nasal congestion, Denies neck pain, Denies odynophagia and Denies sore throat Card Denies chest pain, Denies rapid heart rate, Denies irregular heart rhythm, Denies palpitations and Reports dyspnea on exertion (mild) Resp Denies chest congestion, Denies cough, Reports dyspnea on exertion (mild) and Denies wheezing GI Denies abdominal pain, Denies bloating, Denies constipation, Denies dysphagia, Denies heartburn, Denies diarrhea, Denies nausea, Denies odynophagia and Denies vomiting Denies hematuria, Denies difficulty urinating, Denies dysuria, Denies urinary frequency and Denies urinary urgency Musc Denies back pain, Denies arthralgias, Denies joint swelling, Denies muscle weakness and Denies neck pain Skin/Breast Denies change in pigmentation, Denies lesions, Denies rash and Denies unusual bruising Neuro Denies dizziness, Denies headache(s), Denies paresthesias and Denies weakness Endo Denies fatigue and Denies palpitations Aller/Immun Denies itchy eyes and Denies wheezing Physical exam (Primary Care) Vital Signs: Last Vital Signs Pulse 79 03/21/24 10:23 BP 122/60 03/21/24 10:23 Pulse Ox 98 03/21/24 10:23 Oxygen Delivery Method Room Air 03/21/24 10:23 BMI result Body Mass Index 26.0 Tobacco/Smoking Status: Tobacco use Status Tobacco use date assessed 03/21/24 03/21/24 10:27 Patient Tobacco Use Status Never used Tobacco 03/21/24 10:27 e-Cigarette/Vaping Use Never Used 03/21/24 10:27 PHQ-9: PHQ-9 Score PHQ-9: Total score 0 03/21/24 10:45 Depression Screening Interpretation: Negative Thrive Assessment: Date of Thrive Assessment Date Thrive assessed 03/21/24 03/21/24 10:27 Currently or been in a relationship where the following occur: No concerns reported Const General: no acute distress, alert and awake Orientation/consciousness: patient oriented x3 HENMT Head: Yes normocephalic and Yes atraumatic Ears: external ears normal, TM's normal bilaterally and EAC's normal General nose exam: No nasal discharge present Face and sinus: Yes normal facial exam and Yes sinuses nontender Teeth and gingiva: dentition normal Throat: Yes posterior oropharynx normal and Yes tonsils normal (no TP congestion) Eyes Eyelids: Yes eyelids normal Conjunctivae: conjunctivae normal Pupils: Equal, round and reactive pupils present EOM: EOMs intact bilaterally Neck Neck: Yes no lymphadenopathy and Yes supple Thyroid: Thyroid normal Resp Auscultation: clear to auscultation bilaterally, no rales and no wheezes Cardio Rate: regular rate Rhythm: regular rhythm Heart sounds: no murmurs GI Palpation (GI): Soft to palpation, nontender and No hepatosplenomegaly present Auscultation: normal bowel sounds General: Yes no CVA tenderness Back/Spine/Pelvis Back: no CVA tenderness Thoracic/Lumbar Spine: lumbar spinal tenderness (mild) Skin Lesions: no lesions Rashes: no rashes Neuro General: patient oriented x3, moves all extremities, no focal motor deficits and CN's II-XI intact bilaterally Cranial nerves: Yes Equal, round and reactive pupils present Cognition (Neuro): normal cognition Gait exam (Neuro): Normal gait present Extrem General: Yes no clubbing, cyanosis or edema Results Reviewed Results Reviewed: Laboratory Tests 12/29/23 01/01/24 03/16/24 09:52 08:30 08:05 WBC 7.7 Hgb 10.5 L D Hct 33.4 L D Plt Count 492 H D Sodium 140 Potassium 4.3 Creatinine 1.20 Estimated GFR 58 Fasting Glucose 158 H Hemoglobin A1c % 5.6 Calcium 10.0 D AST 24 ALT 38 Triglycerides 78 Cholesterol 186 LDL Cholesterol, Calc 128 H HDL Cholesterol 43 Prostate Specific Ag < 0.10 25-OH Vitamin D Total 21.4 L TSH 0.66 Ur Specific [place] 1.015 Urine Protein Negative Urine Glucose (UA) Negative Urine Blood Negative Urine Nitrite Negative Ur Leukocyte Esterase Negative Coding Level of Care Code Est Pt Prev Care >65y(71286) Diagnoses Annual physical exam Z00.00 Renal hemorrhage, right N28.89 Anemia, unspecified type D64.9 Anemia type: unspecified type Pleural effusion, right J90 Acute deep vein thrombosis (DVT) of femoral vein of left lower extremity I82.412 Affected thrombotic vein of extremity: femoral Chronicity: acute Benign essential hypertension I10 Pure hypercholesterolemia E78.00 Impaired fasting glucose R73.01 Dupuytren's contracture of left hand M72.0 Primary osteoarthritis of left knee M17.12 Osteoarthritis type: primary Lumbar spondylosis M47.816 Radiation cystitis N30.40 History of prostate cancer Z85.46 Vitamin D deficiency E55.9 Overweight (BMI 25.0-29.9) E66.3 Additional Codes PHQ-9 - 72329 - PHQ-9 Billing: Yes ([id number]) Assessment & Plan Assessment & Plan (1) Annual physical exam: Code(s): Z00.00 - Encounter for general adult medical examination without abnormal findings Category: Medical Plan: Results of his labs done back in December 2023 reviewed and discussed with patient He had his screening colonoscopy last done 2 years ago (2021) and based on his age, should not need any follow-up colonoscopy unless indicated (2) Renal hemorrhage, right: Code(s): N28.89 - Other specified disorders of kidney and ureter Category: Medical Plan: This was seen on abdominal/pelvic CT a few months ago, which revealed (+) marked enlargement of the right kidney with findings consistent with an intrarenal hemorrhage with hemorrhagic extension into the perinephric space and right psoas muscles, with possible partial obstruction of the right ureter His Apixaban was held and he stayed off Rx for a total of 10 days and resumed Apixaban at 2.5 mg BID after 01/01/2024 He went for repeat abdominal and pelvic CT last month for follow up but the CT report is still pending at this time - will try to get radiology to expedite his reading as soon as possible Follow up with urology as scheduled (3) Anemia: Code(s): D64.9 - Anemia, unspecified Category: Medical Qualifiers: Anemia type: unspecified type Qualified Code(s): D64.9 - Anemia, unspecified Plan: His most recent H/H are still low at 10.5/33.4 a couple of months ago on 12/29/2023 but these have improved a lot from his previous numbers at 8.3/27.2 a week prior on 12/22/2023 - this is likely due to a combination of acute blood loss and iron deficiency, as his RBC indices were all very low Continue Ferrous Sulfate ER 142 mg QD (4) Pleural effusion, right: Code(s): J90 - Pleural effusion, not elsewhere classified Category: Medical Plan: Improving/resolving - repeat chest x-rays done back on 12/29/2023 revealed (+) trace blunting of the right costophrenic angle that may reflect pleural scarring versus a tiny amount of residual pleural fluid Patient currently no longer feels SOB or has MINA easily (5) Deep vein thrombosis (DVT) of left lower extremity: Code(s): I82.402 - Acute embolism and thrombosis of unspecified deep veins of left lower extremity Category: Medical Qualifiers: Affected thrombotic vein of extremity: femoral Chronicity: acute Qualified Code(s): I82.412 - Acute embolism and thrombosis of left femoral vein Plan: S/P IVC filter placement; filter was removed last year Venous doppler in April 2022 still showed (+) partially occlusive embolus in the left lower extremity involving the common femoral and femoral veins proximally Repeat venous doppler of the left lower extremity done in April 2023 still showed a 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 with interval resolution of the thrombus in the left femoral vein Continue Apixaban 2.5 mg BID Per request, will send him for repeat venous doppler of the left lower extremity for follow up (6) Benign essential hypertension: Code(s): I10 - Essential (primary) hypertension Category: Medical Plan: Reinforced low sodium diet - goal is systolic BP of at least 140 to 150 mm Continue Amlodipine-Benazepril 5-40 mg QD (7) Pure hypercholesterolemia: Code(s): E78.00 - Pure hypercholesterolemia, unspecified Category: Medical Plan: Results of his labs done back in December 2023 reviewed and discussed with patient Reinforced low cholesterol diet His cholesterol numbers have been adequately controlled with diet modification alone Will recheck his labs and fasting lipids in 6 months for follow up (8) Impaired fasting glucose: Code(s): R73.01 - Impaired fasting glucose Category: Medical Plan: His FBS was again elevated on his most recent labs done a few months ago at 158 mg/dl His HgbA1c was normal at 5.1% when previously checked and was again normal at 5.6% on his recent labs Reinforced low calorie diet/exercise as tolerated Will continue to monitor this regularly and recheck them again in 6 months (9) Dupuytren's contracture of left hand: Code(s): M72.0 - Palmar fascial fibromatosis [Dupuytren] Category: Medical Plan: Follow up with orthopedics as scheduled States that he has been advised that surgery is an option but he may be incapacitated for a while following surgery Patient has declined surgical intervention and states that he has learned to live with his pain (10) Osteoarthritis of left knee: Comment: S/P partial medial meniscectomy and chondroplasty of the medial femoral condyle of the left knee by Dr. Russ back on 06/05/2012 Code(s): M17.12 - Unilateral primary osteoarthritis, left knee Category: Medical Qualifiers: Osteoarthritis type: primary Qualified Code(s): M17.12 - Unilateral primary osteoarthritis, left knee Plan: Continue Ibuprofen PRN for knee pain Follow up with orthopedics as scheduled or as needed (11) Lumbar spondylosis: Code(s): M47.816 - Spondylosis without myelopathy or radiculopathy, lumbar region Category: Medical Plan: Reinforced activity and weight lifting restrictions States that his low back pain has improved significantly with physical therapy (referred by pain management) and he continues to do his back exercises regularly to manage his back symptoms Follow up with pain management as scheduled or as needed (12) Radiation cystitis: Code(s): N30.40 - Irradiation cystitis without hematuria Category: Medical Plan: Cystoscopy done last year confirmed findings of radiation cystitis, which is most likely the source of his recurrent hematuria Patient underwent hyperbaric oxygen chamber Tx last year and felt that this helped with his hemorrhagic cystitis His recent urinalysis showed NO presence of RBCs in his urine Follow up with urology as scheduled (13) History of prostate cancer: Comment: S/P radiation Tx years ago Code(s): Z85.46 - Personal history of malignant neoplasm of prostate Category: Medical Plan: S/P radiation Tx Follow up with urology as scheduled for continuing surveillance (14) Vitamin D deficiency: Code(s): E55.9 - Vitamin D deficiency, unspecified Category: Medical Plan: Corrected - continue OTC Vitamin D 400 units QD Will continue to monitor his Vitamin D level regularly (15) Overweight (BMI 25.0-29.9): Code(s): E66.3 - Overweight Category: Medical Plan: Reinforced diet/exercise as tolerated/lose weight Plan Follow up in 6 months Orders: Orders Complete Blood Count Auto Diff 6 Months D64.9 - Anemia, unspecified, Z00.00 - Encounter for general adult medical examination without abnormal findings TSH reflex Free T4 6 Months E78.00 - Pure hypercholesterolemia, unspecified, Z00.00 - Encounter for general adult medical examination without abnormal findings US venous duplex LE LT 03/21/24 I82.412 - Acute embolism and thrombosis of left femoral vein Comprehensive [place]. Panel Fast 6 Months E78.00 - Pure hypercholesterolemia, unspecified, Z00.00 - Encounter for general adult medical examination without ab normal findings Lipid Panel 6 Months E78.00 - Pure hypercholesterolemia, unspecified, Z00.00 - Encounter for general adult medical examination without abnormal findings UA CC w/rflx Micro + Cult 6 Months R30.0 - Dysuria, Z00.00 - Encounter for general adult medical examination without abnormal findings Vitamin D 25-OH Total 6 Months E55.9 - Vitamin D deficiency, unspecified, Z00.00 - Encounter for general adult medical examination without abnormal findings Hemoglobin A1c 6 Months E11.9 - Type 2 diabetes mellitus without complications, Z00.00 - Encounter for general adult medical examination without abnormal findings
--- OUTSIDE RECORDS SUMMARY | 2024-03-27 01:30 | XMS_ITS | Continuity of Care Document ---
Author Organization [facility] Address [address] [place] [address]- Care Team Providers Care Brick Layer Name Role Phone Elder Beryl MYERS Primary Care Physicia n Encounter 02/19/24 - 02/26/24 [facility] [address], [address] [place] [address]- Attending Physician: Kristy Martinez MD Admitting Physician: Kristy Martinez MD Referring Physician: Kristy Martinez MD Allergies, Adverse Reactions, Alerts Substance Reaction Severity Status Depakote Ataxia Active TEGretol Active Immunizations Given and Recorded Vaccine Date Status Refusal Reason influenza virus vaccine, inactivated 01/25/23 Give n pneumococcal 20-valent conjugate vaccine 08/30/22 Recorded [id number] 12y+ bivalent booster vax 01/13/22 Recorded SARS-CoV-2 (COVID-19) mRNA BNT-162b2 vac 05/13/20 Recorded SARS-CoV-2 (COVID-19) mRNA BNT-162b2 vac 04/22/20 Recorded pneumococcal 23-valent vaccine 11/01/12 Recorded Medications acetaminophen 325 mg oral tablet 650 mg, 2, tablet, By Mouth, Every 6 hours, PRN, Maintenance, as needed for pain or fever > 100,06/02/22 15:06:00 EST Start Date: 06/02/22 Status: Ordered Artificial Tears preserved solution 2 drops, Eyes, Both, Every 4 hours, PRN dry eyes, Glycerin 0.2%; Hypomellose- 0.2%; Polyethylene Glycol 1%, Maintenance, 01/23/23 13:39:00 EDT, Partial fill upon patient request if the prescription isfor a schedule II opioid drug. Start Date: 01/23/23 Status: Ordered aspirin 81 mg oral tablet, chewable 81 mg, 1, tablet, By Mouth, Daily, Maintenance, 05/08/23 11:41:00 EST Start Date: 05/08/23 Status: Ordered atorvastatin 40 mg oral tablet 1 tablet = 40 mg, By Mouth, Daily at bedtime, 0 Refills, Maintenance, 02/23/20 11:42:00 EST, Tablet Start Date: 02/23/20 Status: Ordered carbidopa-levodopa 25 mg-100 mg oral tablet 1 tablet, By Mouth, 3 times a day, 0 Refills, Maintenance, 02/23/20 11:41:00 EST, Tablet Start Date: 02/23/20 Status: Ordered Cipro 500 mg oral tablet 1 tablet = 500 mg, By Mouth, 2 times a day, start 06/16/23 in PM through 06/19/23 in AM, Maintenance, 06/15/23 17:08:00 EST Start Date: 06/15/23 Stop Date: 06/18/23 Status: Ordered Dulcolax 10 mg rectal suppository 1 supp = 10 mg, Rectally, Daily, PRN as needed for constipation, Maintenance, 06/13/20 7:44:00 EST,Suppository, ; Start Date: 06/13/20 Status: Ordered duloxetine 20 mg oral enteric coated capsule 1 capsule = 20 mg, By Mouth, Daily, 0 Refills, Maintenance, 02/23/20 11:38:00 EST, EC Capsule Start Date: 02/23/20 Status: Ordered ferrous sulfate 325 mg oral enteric coated tablet 325 mg, 1, tablet, By Mouth, Daily, Refills 0, Maintenance, 04/02/22 16:10:00 EST, ; Start Date: 04/02/22 Status: Ordered finasteride 5 mg oral tablet 1 tablet = 5 mg, By Mouth, Daily, 0 Refills, Maintenance, 05/23/23 10:25:00 EST, Tablet Start Date: 05/23/23 Status: Ordered Fleet Enema 19 gm-7 gm rectal enema 1 each, Rectally, Daily, PRN for constipation, Give if no BM 8 hrs after Bisacodyl supp, Maintenance, 06/13/20 7:45:00 EST, Enema, ; Start Date: 06/13/20 Status: Ordered gabapentin 400 mg oral capsule 400 mg, 1, capsule, By Mouth, 3 times a day, Refills 0, Maintenance, 02/23/20 11:41:00 EST Start Date: 02/23/20 Status: Ordered lactulose 10 gm/15 ml oral syrup 30 mL = 20 Gm, By Mouth, Daily, Maintenance, 06/02/22 15:09:00 EST, Syrup Start Date: 06/02/22 Status: Ordered melatonin 3 mg oral tablet = 3 mg, By Mouth, Daily at bedtime, PRN Insomnia, 0 Refills, Maintenance, 01/26/23 14:46:00 EDT, Tablet Start Date: 01/26/23 Status: Ordered Metoprolol Succinate ER 25 mg oral tablet, extended release 1 tablet = 25 mg, By Mouth, Daily, 0 Refills, Maintenance, 02/23/20 11:38:00 EST, ER Tablet Start Date: 02/23/20 Status: Ordered Milk of Magnesia 8% oral suspension 30 mL = 2.4 Gm, By Mouth, Daily, PRN for constipation, Maintenance, 06/13/20 7:48:00 EST, Suspension, ; Start Date: 06/13/20 Status: Ordered MiraLax Powder 1 pack/packet = 17 Gm, By Mouth, Daily, PRN Constipation, 0 Refills, Maintenance, 01/26/23 14:46:00EDT, Powder Start Date: 01/26/23 Status: Ordered pantoprazole 20 mg oral delayed release tablet 1 tablet = 20 mg, By Mouth, Daily, 0 Refills, Maintenance, 04/02/22 16:12:00 EST, CR Tablet Start Date: 04/02/22 Status: Ordered RisperDAL 1 mg oral tablet 1 mg, 1, tablet, By Mouth, Daily at bedtime, Maintenance, 01/23/23 13:43:00 EDT Start Date: 01/23/23 Status: Ordered Senna 8.6 mg oral tablet 17.2 mg, 2, tablet, By Mouth, 2 times a day, Refills 0, Maintenance, 02/23/20 11:41:00 EST, Tablet Start Date: 02/23/20 Status: Ordered tamsulosin 0.4 mg oral capsule 0.4 mg, 1, capsule, By Mouth, Daily, Refills 0, Maintenance, 02/23/20 11:39:00 EST Start Date: 02/23/20 Status: Ordered Xarelto 20 mg oral tablet 1 tablet = 20 mg, By Mouth, Daily, with evening meal, 0 Refills, Maintenance, 02/23/20 11:39:00 EST, Tablet Start Date: 02/23/20 Status: Ordered Problem List Condition Confirmation Course Effective Dates Status H ealth Status Informant Anxiety Confirmed Active Atrial fibrillation Confirmed Active Bipolar 1 disorder Confirmed Active Chronic anemia Confirmed Active Chronic schizoaffective disorder Confirmed Active Dementia Confirmed Active Depression Confirmed Active GERD (gastroesophageal reflux disease) Confirmed Active History of BPH Confirmed Active History of recurrent UTIs Confirmed Active HTN (hypertension) Confirmed Active HLD (hyperlipidemia) Confirmed Active Parkinson's disease Confirmed Active Vitamin D deficiency Confirmed Active Xerosis of skin Confirmed Active Results Radiology Reports * Exam Date Time Procedure Performing Provider Status 02/19/24 3:00 PM [facility] Joe Flanagan; Auth (Verified) Notes: ([facility]) Reason For Exam: Calculus of kidney RESULT: StartBull Reason: Calculus of kidney COMPARISON: 02/07/2023. FINDINGS: Right kidney: 10.3 cm in length. No hydronephrosis. Normal parenchymal thickness and echotexture. No stones. There is a 4.2 x 5.4 x 4.5 cm cyst in the lower pole. Left kidney: 10.0 cm in length. No hydronephrosis. Normal parenchymal thickness and echotexture. There is a 4 mm nonobstructing echogenic focus in the lower pole. There is a 0.5 x 0.5 x 0.4 cm cyst in the lower pole. IMPRESSION: 1. 4 mm nonobstructing echogenic focus in the lower pole of the left kidney consistent with a nonobstructing calculus, not significantly changed. There is no evidence of obstructive uropathy. 2. Bilateral renal cysts as detailed above. WSN: [id number] Ordering Physician: Kristy Martinez Dictated By: Arlette Mckeon MD Dictated Date/Time: 02/19/24 3:07 pm Reviewed By: Arlette Mckeon MD Signed By: Arlette Mckeon MD Signed Date/Time: 02/19/24 3:07 pm Transcribed By: ROSENDO Transcribed Date/Time: 02/19/24 3:05 pm Social History Social History Type Response Smoking Status Former smoker, quit more than 30 days ago entered on: 07/04/23 Sex Male Patient Care team information Care Team Personnel Name: Valentine Avina RN Position: [facility] RN Member Role: Primary Care Nurse Name: Senia Hughes RN Position: [facility] RN Supterry Member Role: Primary Care Nurse Name: Gabrielle Iniguez Position: [facility] RN Member Role: Primary Care Nurse Name: Denae Alexandre RN Position: [facility] RN Member Role: Primary Care Nurse Name: Brea Romero Position: [facility] Outreach Member Role: Lifetime Consulting Physician Name: Beryl Tan MD Position: [facility] Physician - Neurology Member Role: PCP Address: Address: [address] [place] [address] [address] [facility] [place] [address]- Name: Demetrice Gonsalves RN Position: [facility] RN Member Role: Primary Care Nurse Name: Samreen Neff RN Position: [facility] RN Member Role: Primary Care Nurse Name: Beryl hCase NP Position: [facility] Associate Professional Member Role: Lifetime Consulting Provider Address: Address: [address] [place] [address] [address] [facility] [place] [address]- Name: Isael Ho MD Position: [facility] Renal MD Member Role: Lifetime Consulting Physician Address: Address: [address] [place], [place] [address] [place] [address]- Name: Dominic Jimenez RN Position: [facility] RN Member Role: Primary Care Nurse Name: Brandi Garcia LPN Position: [facility] RN Member Role: Primary Care Nurse Name: Sarahi Torres RN Position: [facility] RN Member Role: Primary Care Nurse Name: Crystal Mayers Position: [facility] RN Member Role: Primary Care Nurse Name: Maia Perales RN Position: [facility] RN Member Role: Primary Care Nurse Name: Anjana Alves RN Position: [facility] SN RN Member Role: Primary Care Nurse Name: Yodit Queen RN Position: [facility] RN Member Role: Primary Care Nurse Name: Cathi Banuelos RN Position: [facility] RN Member Role: Primary Care Nurse Name: Kristy Martinez MD Position: [facility] Physician - Urology Med Service: Urology Member Role: Ordering Physician Address: Address: [address] [place] [address] [address] [facility], [place] [address]- Care Team Related Persons Name: KRISTY BANDA Address: [address] [place] [address] Name: PAULINE GLYNN Address: [address] [place] [address] Name: GABRIELLE KNIGHT Address: home [address] [place] [address]
== END 2024-03-21 10:55 | disposition home or self-care (01) ==
PROVIDERS: PCP Internal Medicine; Visit Provider Internal Medicine
DX: Z00.00 Encounter for general adult medical examination without abnormal findings (principal); I82.412 Acute embolism and thrombosis of left femoral vein; N28.89 Other specified disorders of kidney and ureter; D64.9 Anemia, unspecified; J90 Pleural effusion, not elsewhere classified; I10 Essential (primary) hypertension; E78.00 Pure hypercholesterolemia, unspecified; R73.01 Impaired fasting glucose; M72.0 Palmar fascial fibromatosis [Dupuytren]; M17.12 Unilateral primary osteoarthritis, left knee; M47.816 Spondylosis without myelopathy or radiculopathy, lumbar region; N30.40 Irradiation cystitis without hematuria

== ENCOUNTER → 2024-03-21 10:09 | Outpatient (BNVA) | payer MEDICARE, SELFPAY | PROVIDERS: PCP Internal Medicine; Visit Provider Internal Medicine | DX: Z00.00 Encounter for general adult medical examination without abnormal findings (principal); N28.89 Other specified disorders of kidney and ureter; D64.9 Anemia, unspecified; J90 Pleural effusion, not elsewhere classified; I82.412 Acute embolism and thrombosis of left femoral vein; I10 Essential (primary) hypertension; E78.00 Pure hypercholesterolemia, unspecified; R73.01 Impaired fasting glucose; M72.0 Palmar fascial fibromatosis [Dupuytren]; M17.12 Unilateral primary osteoarthritis, left knee; M47.816 Spondylosis without myelopathy or radiculopathy, lumbar region; N30.40 Irradiation cystitis without hematuria; E55.9 Vitamin D deficiency, unspecified; E66.3 Overweight; Z68.26 Body mass index [BMI] 26.0-26.9, adult; Z85.46 Personal history of malignant neoplasm of prostate; Z71.3 Dietary counseling and surveillance | CPT/HCPCS: 96127; 99397 ==

== ENCOUNTER 2024-04-15 12:19 | Outpatient (REF) | payer MEDICARE, SELFPAY ==
--- NOTE | ~2024-04-15 | US_ITS ---
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 No popliteal cyst. 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 This document has been electronically signed by: Stephen Abebe MD on 04/17/2024 08:57:49
--- OUTSIDE RECORDS SUMMARY | 2024-04-15 12:22 | XMS_ITS | Continuity of Care Document ---
Author Organization 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 Role Phone Major MYERS, Carl Primary Care Physician [facility]counter [facility] [id number] Date(s): 04/06/24 - 04/09/24 [facility] [address] [place] [id number] Encounter Diagnosis Sepsis(Final) - 04/06/24 Urinary tract infection(Final) - 04/06/24 Fever(Final) - 04/06/24 Tachycardia(Final) - 04/06/24 Discharge Disposition: A-Transfer SNF Attending Physician: Ruperto Zayas MD Admitting Physician: Can Lai DO Referring Physician: Not on Staff, Referring MD Encounter Type: Disch IP Allergies, Adverse Reactions, Alerts Substance Criticality Severity Reaction Reaction Severity Status Depakote Ataxia Active TEGretol Active Immunizations Given and Recorded Vaccine Date Status Refusal Reason influenza virus vaccine, inactivated 01/25/23 Give n pneumococcal 20-valent conjugate vaccine 08/30/22 Recorded [id number] 12y+ bivalent booster vax 01/13/22 Recorded SARS-CoV-2 (COVID-19) mRNA BNT-162b2 vac 05/13/20 Recorded SARS-CoV-2 (COVID-19) mRNA BNT-162b2 vac 04/22/20 Recorded pneumococcal 23-valent vaccine 11/01/12 Recorded Medications acetaminophen 325 mg oral tablet 650 mg, 2, tablet, By Mouth, Every 6 hours, PRN, Maintenance, as needed for pain or fever > 100,06/02/22 3:06:00 PM EST Start Date: 06/02/22 Status: Ordered Repeat number: 1 Artificial Tears preserved solution 2 drops, Eyes, Both, Every 4 hours, PRN dry eyes, Glycerin 0.2%; Hypomellose- 0.2%; Polyethylene Glycol 1%, Maintenance, 01/23/23 1:39:00 PM EDT, Partial fill upon patient request if the prescription is for a schedule II opioid drug. Start Date: 01/23/23 Status: Ordered Repeat number: 1 aspirin 81 mg oral tablet, chewable 81 mg, 1, tablet, By Mouth, Daily, Maintenance, 05/08/23 11:41:00 AM EST Start Date: 05/08/23 Status: Ordered Repeat number: 1 atorvastatin 40 mg oral tablet 1 tablet = 40 mg, By Mouth, Daily at bedtime, 0 Refills, Maintenance, 02/23/20 11:42:00 AM EST, Tablet Start Date: 02/23/20 Status: Ordered Repeat number: 1 Bactrim DS 800 mg-160 mg oral tablet 1 tablet, By Mouth, 2 times a day, for 7 days, # 14 tablet, 0 Refills, Acute 04/16/24 2:22:00 PM EST, 04/09/24 2:22:00 PM EST, Tablet, [facility] 3, Partial fill upon patient request if the prescription is for a schedule II opioid drug., 1 tablet By Mouth 2 times a day,x7 days, 178, cm,07/04/23 7:52:00 EDT, Height, 80, kg, 07/04/23 7:52:00 EDT, Dry Weight Start Date: 04/09/24 Stop Date: 04/16/24 Status: Ordered Quantity: 14.0 Unit: tablet Repeat number: 1 carbidopa-levodopa 25 mg-100 mg oral tablet 1 tablet, By Mouth, 3 times a day, 0 Refills, Maintenance, 02/23/20 11:41:00 AM EST, Tablet Start Date: 02/23/20 Status: Ordered Repeat number: 1 Dulcolax 10 mg rectal suppository 1 supp = 10 mg, Rectally, Daily, PRN as needed for constipation, Maintenance, 06/13/20 7:44:00 AM EST, Suppository, ; Start Date: 06/13/20 Status: Ordered Repeat number: 1 duloxetine 20 mg oral enteric coated capsule 1 capsule = 20 mg, By Mouth, Daily, 0 Refills, Maintenance, 02/23/20 11:38:00 AM EST, EC Capsule Start Date: 02/23/20 Status: Ordered Repeat number: 1 ferrous sulfate 325 mg oral enteric coated tablet 325 mg, 1, tablet, By Mouth, Daily, Refills 0, Maintenance, 04/02/22 4:10:00 PM EST, ; Start Date: 04/02/22 Status: Ordered Repeat number: 1 finasteride 5 mg oral tablet 1 tablet = 5 mg, By Mouth, Daily, 0 Refills, Maintenance, 05/23/23 10:25:00 AM EST, Tablet Start Date: 05/23/23 Status: Ordered Repeat number: 1 Fleet Enema 19 gm-7 gm rectal enema 1 each, Rectally, Daily, PRN for constipation, Give if no BM 8 hrs after Bisacodyl supp, Maintenance, 06/13/20 7:45:00 AM EST, Enema, ; Start Date: 06/13/20 Status: Ordered Repeat number: 1 lactulose 10 gm/15 ml oral syrup 30 mL = 20 Gm, By Mouth, Daily, Maintenance, 06/02/22 3:09:00 PM EST, Syrup Start Date: 06/02/22 Status: Ordered Repeat number: 1 melatonin 3 mg oral tablet = 3 mg, By Mouth, Daily at bedtime, PRN Insomnia, 0 Refills, Maintenance, 01/26/23 2:46:00 PM EDT, Tablet Start Date: 01/26/23 Status: Ordered Repeat number: 1 Milk of Magnesia 8% oral suspension 30 mL = 2.4 Gm, By Mouth, Daily, PRN for constipation, Maintenance, 06/13/20 7:48:00 AM EST, Suspension, ; Start Date: 06/13/20 Status: Ordered Repeat number: 1 MiraLax Powder 1 pack/packet = 17 Gm, By Mouth, Daily, PRN Constipation, 0 Refills, Maintenance, 01/26/23 2:46:00 PM EDT, Powder Start Date: 01/26/23 Status: Ordered Repeat number: 1 pantoprazole 20 mg oral delayed release tablet 1 tablet = 20 mg, By Mouth, Daily, 0 Refills, Maintenance, 04/02/22 4:12:00 PM EST, CR Tablet Start Date: 04/02/22 Status: Ordered Repeat number: 1 RisperDAL 1 mg oral tablet 1 mg, 1, tablet, By Mouth, Daily at bedtime, Maintenance, 01/23/23 1:43:00 PM EDT Start Date: 01/23/23 Status: Ordered Repeat number: 1 Senna 8.6 mg oral tablet 17.2 mg, 2, tablet, By Mouth, 2 times a day, Refills 0, Maintenance, 02/23/20 11:41:00 AM EST, Tablet Start Date: 02/23/20 Status: Ordered Repeat number: 1 tamsulosin 0.4 mg oral capsule 0.4 mg, 1, capsule, By Mouth, Daily, Refills 0, Maintenance, 02/23/20 11:39:00 AM EST Start Date: 02/23/20 Status: Ordered Repeat number: 1 Xarelto 20 mg oral tablet 1 tablet = 20 mg, By Mouth, Daily, with evening meal, 0 Refills, Maintenance, 02/23/20 11:39:00 AM EST, Tablet Start Date: 02/23/20 Status: Ordered Repeat number: 1 Problem List Condition Confirmation Course Effective Dates [...] Exam Date Time Procedure Performing Provider Status 04/06/24 4:31 PM Chest Portable Macarena Oneil; Auth (Verified) Notes: (Chest Portable) Reason For Exam: Fever RESULT: Chest Portable Chest Portable Reason: Fever; Clinical Question(s): Pneumonia COMPARISON: [facility], most recent dated 05/21/2023 FINDINGS: LINES AND TUBES: None. LUNGS AND PLEURA: Low lung volumes. Minimal left basilar atelectasis. No focal consolidation. Normal pulmonary vascularity. No pleural effusion. No pneumothorax. HEART, MEDIASTINUM AND YASIR: Stable mild enlarged cardiac silhouette. Normal mediastinal and hilar contour. BONES AND SOFT TISSUES: No acute abnormality. Mild gaseous distention of the colonic loop in the upper abdomen, partly withcolonic interposition anterior to the liver.. IMPRESSION: Low lung volumes. Stable mild enlarged cardiac silhouette. Minimal left basilar atelectasis. No focal consolidation. Mild gaseous distention of the colonic loop in the upper abdomen. WSN: [id number] Ordering Physician: Chelsea You Dictated By: Olivia Temple MD Dictated Date/Time: 04/06/24 4:34 pm Reviewed By: Olivia Temple MD Signed By: Olivia Temple MD Signed Date/Time: 04/06/24 4:34 pm Transcribed By: ROSENDO Transcribed Date/Time: 04/06/24 4:32 pm Vital Signs Most recent to oldest [Reference Range]: 1 2 3 Oxygen Saturation [94-100 %] 100 % (04/09/24 3:00 PM) 100 % (04/09/24 11:00 AM) 98 % (04/09/24 7:00 AM) Pulse Rate [55-90 bpm] 64 bpm (04/09/24 3:00 PM) 84 bpm (04/09/24 11:00 AM) 97 bpm *H* (04/09/24 7:00 AM) Blood Pressure [90-138/55-84 mm Hg] 122/75mm Hg (04/09/24 3:00 PM) 136/83mm Hg (04/09/24 11:00 AM) 150/78mm Hg *H* (04/09/24 7:00 AM) Respiratory Rate [16-30 br/min] 18 br/min (04/09/24 3:00 PM) 18 br/min (04/09/24 11:00 AM) 18 br/min (04/09/24 7:00 AM) Temperature [96.8-100.4 DegF] 97.9 DegF (04/09/24 3:00 PM) 97.3 DegF (04/09/24 11:00 AM) 98.2 DegF (04/09/24 7:00 AM) Mode of Delivery (Oxygen) Room air (04/09/24 3:00 PM) Room air (04/09/24 11:00 AM) Room air (04/09/24 7:00 AM) Blood pressure sites Arm, right (04/09/24 3:00 PM) Arm, right (04/09/24 11:00 AM) Arm, left (04/09/24 7:00 AM) Temperature Route Oral (04/09/24 3:00 PM) Oral (04/09/24 11:00 AM) Oral (04/09/24 7:00 AM) Social History Social History Type Response Smoking Status Former smoker, quit more than 30 days ago entered on: 07/04/23 Sex Male Sex Representation Male (finding) Admission evaluation note * Emre MYERS, Karie Zambrano: PERFORM Event Display: Admission Note Authored Date: Patient: ??KRISTY BANDA ? Age:??79 Years?Sex:??Male?:??1945?? Chief Complaint/Reason for Consultation from [facility], staff reports increasing fevr today up to 104, given 650mg tylenol at 1445; pt repeated I don't feel well ; wound to left foot noted History of Present Illness 79 years old male with past medical history of hypertension, A-fib (on Xarelto), GERD, BPH, recurrent UTI, Parkinson disease, she is affective disorder, bipolar disorder, dementia [facility]. ?? Patient was more lethargic decreased appetite??also reported 1 episode of??regurgitation and vomiting??and??they have??found his temperature??of??up to 104.1 rectally. .?? Patient received Tylenol??and transferred to the hospital. I have called the niece who is the healthcare proxy??who reported that patient??was having recurrent UTIs in the past and he had a circumcision earlier this year.?? He was doing better afterward but he had a UTI??more than a month ago??and was hospitalized at [facility]??then discharged??back to correction.?Although he has good days??they actually take him out 1 day for his birthday??but overall he is declining.?There was no specific issue recently??other than being less active and he is bedbound right now.?He has been forgetful??but??able to recognize his??niece and was talking appropriately on and off.? I confirmed the CODE STATUS DNR and DNI with the niece.?? Chest x-ray without acute abnormality, minimal left basilar atelectasis, stable mild enlarged cardiac silhouette, mild gaseous distention of the colon including the upper abdomen WBC 8.4 Hemoglobin 10.7 (baseline 12) Glucose 201 Creatinine 1.14 (baseline) Albumin 3.3 Lactate 3.2 > 1.5 UA shows nitrate positive, 3+ leukocyte, WBC 150, heavy bacteria, 110 RBCs Previous urine cultures with different bugs include??Pseudomonas aeruginosa, Proteus mirabilis, E faecalis Review of Systems None except as above Objective Vital Signs?? Temperature: 97.7 DegF (04/06/24 20:32:00) Temperature Route: Oral (04/06/24 20:32:00) Pulse Rate: 55 bpm (04/06/24 21:35:00) Respiratory Rate: 20 br/min (04/06/24 21:35:00) Systolic Blood Pressure: 107 mm Hg (04/06/24 21:35:00) Diastolic Blood Pressure: 65 mm Hg (04/06/24 21:35:00) Blood pressure sites: Arm, left (04/06/24 20:30:00) Mean Arterial Pressure: 74 mm Hg (04/06/24 20:30:00) Pulse Pressure: 50 mm Hg (04/06/24 20:30:00) Oxygen Saturation: 96 % (04/06/24 21:35:00) Mode of Delivery (Oxygen): Room air (04/06/24 20:30:00) Early Warning Score: 2 (04/06/24 21:35:48) ?? Physical Exam Elderly male, pale appearance, lethargic,??responds to voice stimuli, only alert to himself,??follows some commands,??moves 4 extremities freely,??no focal neurodeficit S1-S2 normal,??irregularly irregular rhythm, heart rate??bradycardic to??normal??on telemetry Bilateral lungs good air entry, no wheezing or crackles Abdomen??nontender, no rebound or guarding, slightly??distended on the lower??mid abdomen Bilateral extremities??warm,??no swelling, peripheral pulses palpable Assessment/Plan Diagnoses Acute urinary retention ??(R33.8) Anemia ??(D64.9) Atrial fibrillation with slow ventricular response ??(I48.91) BPH (benign prostatic hyperplasia) ??(N40.0) Bipolar disorder ??(F31.9) Chronic GERD ??(K21.9) Dementia ??(F03.90) Fever ??(R50.9) Hypertension ??(I10) Hypoalbuminemia ??(E88.09) Parkinson disease ??(G20.A1) Sepsis ??(A41.9) Tachycardia ??(R00.0) Urinary tract infection ??(N39.0) ?? Assessment:??79 years old male with past medical history of hypertension, A-fib (on Xarelto), GERD,BPH, recurrent UTI, Parkinson disease, she is affective disorder, bipolar disorder, dementia who BIBEMS from SNF due to AMS. ?? Hypoalbuminemia (E88.09):??Albumin is 3.2 Nutrition consult Will currently hold oral feeding given lethargy,??hoping that patient will improve with antibioticsand IV folate replacement in the morning we can start oral diet ?? Atrial fibrillation with slow ventricular response (I48.91) ?Associated with??Tachycardia (R00.0),??Hypertension (I10) ? Patient with??heart rate fluctuating between??35 to??110s,??lethargic from sepsis??but??responsive to voice stimuli ?? Likely in the setting of sepsis,??but if remains luca-tachy,??would consider cardiology consult ?? EKG shows??A-fib??without acute ST-T changes ?? Hold metoprolol Continue??with rivaroxaban Will monitor on telemetry Continue aspirin and statin ?? Parkinson disease (G20.A1) ?Associated with??Dementia (F03.90) ? High risk for delirium. Frequent reorientation with nursing staff. Bowel regimen with senna as needed for constipation. Delirium management Continue carbidopa-levodopa ?? Bipolar disorder (F31.9):??Continue psychiatric medications Continue duloxetine >??start tomorrow night Continue risperidone >??start tomorrow night ?? Anemia (D64.9):??Continue with??ferrous sulfate No acute signs of bleeding Hemoglobin 10.7 (baseline 12) We will monitor H&H ?? Chronic GERD (K21.9):??Continue with pantoprazole ?? Acute urinary retention (R33.8) ?Associated with??BPH (benign prostatic hyperplasia) (N40.0) ? urinary retention 430 s/p straight cath, then retained >600 cc, medina??placed.? Continue with??tamsulosin and finasteride ?? Sepsis (A41.9) ?Caused by??Urinary tract infection (N39.0),??Fever (R50.9) ? Patient presents with??confusion,??decreased urine output, rectal temperature 104.1, initially tachycardic,??UA??is remarkable for nitrate positive, 3+ leukocyte, WBC 150, heavy bacteria, 110 RBCs.?Also initially hypotensive,??lactate elevated to 3.2 >??1.5 Patient meets sepsis criteria On exam also appears to be dry ?? Plan: Complete 3000 cc??isotonic??fluid replacement LR 75??mL/h for maintenance Started with vancomycin and Zosyn Will follow urine culture Will follow-up blood culture De-escalate antibiotics based on the culture results Will monitor BP ?? VTE Prophylaxis:??Continue Xarelto ?VTE Prophylaxis Assessment:??VTE Prophylaxis Ordered ?? Discharge Planning:??Anticipate back to SNF,??2 to 3 days at least ?? Ongoing Medical Necessity:??Sepsis, UTI ?? Code Status:??DNR and DNI -confirmed with the niece ?Order Code Status:??Code Status Ordered ?? Pt is seen on 04/06 ?? I spent a total of??80 minutes in patient care that includes??reviewing the chart and medical records, speaking with the patient, examining the patient, interpreting labs/imaging/ekg, formulating anddiscussing the treatment plan, counseling the patient, placing orders, communicating with??consultants and nurses??and documenting the encounter. ?? Please note that I have used [employer] system to??transcribe??this note and it may contain unintentional errors. Please feel free to contact me for any clarification. ?? Estimated Discharge Date ? Histories Allergies Allergies ?(Active and Proposed Allergies Only) Depakote? (Severity: Unknown severity, Onset: Unknown) ?Reactions: Ataxia TEGretol? (Severity: Unknown severity, Onset: Unknown) ? Past Medical History/Problem List Active Problems(15) Anxiety Atrial fibrillation Bipolar 1 disorder Chronic anemia Chronic schizoaffective disorder Dementia Depression GERD (gastroesophageal reflux disease) History of BPH History of recurrent UTIs HLD (hyperlipidemia) HTN (hypertension) Parkinson's disease Vitamin D deficiency Xerosis of skin ? Past Surgical History EGD - Esophagogastroduodenoscopy: 09/02/20 ? Social History Alcohol Details:??Use: Never. Tobacco Details:??Use: Former smoker, quit more than 30 days ago. ? Family History No Family History documented. ? Medications Home Medications Acetaminophen (acetaminophen 325 mg oral tablet)?650?Milligram?2?tablet?By Mouth?Every 6 hours?as needed?as needed for fever/pain Aspirin (aspirin 81 mg oral tablet, chewable)?81?Milligram?1?tablet?By Mouth?Daily Atorvastatin (atorvastatin 40 mg oral tablet)?1?tab(s)?40?Milligram?By Mouth?Daily at bedtime Bisacodyl (Dulcolax 10 mg rectal suppository)?1?suppository(ies)?10?Milligram?Rectall y?Daily?as needed?as needed for constipation Carbidopa-Levodopa (carbidopa-levodopa 25 mg-100 mg oral tablet)?1?tab(s)?By Mouth?3 times a day?8a, 1p, 8p Duloxetine (duloxetine 20 mg oral enteric coated capsule)?1?capsule?20?Milligram?By Mouth?Daily Ferrous Sulfate (ferrous sulfate 325 mg oral enteric coated tablet)?325?Milligram?1?tablet?By Mouth?Daily Finasteride (finasteride 5 mg oral tablet)?5?Milligram?By Mouth?Daily?1?tab(s) Lactulose (lactulose 10 gm/15 ml oral syrup)?30?Milliliter?20?gram?By Mouth?Daily Melatonin (melatonin 3 mg oral tablet)?3?Milligram?By Mouth?Daily at bedtime?as needed?Insomnia Metoprolol (Metoprolol Succinate ER 25 mg oral tablet, extended release)?1?tab(s)?25?Milligram?By Mouth?Daily Milk of Magnesia (Milk of Magnesia 8% oral suspension)?30?Milliliter?2.4?gram?By Mouth?Daily?as needed?for constipation Ocular Lubricant (Artificial Tears preserved solution)?2?Drops?Eyes, Both?4 times a day?as needed?dry eyes?0.2-0.2-1%?Every 4 hours?Glycerin 0.2%; Hypomellose-0.2%; Polyethylene Glycol 1% Pantoprazole (pantoprazole 20 mg oral delayed release tablet)?1?tab(s)?20?Milligram?By Mouth?Daily Polyethylene Glycol 3350 (MiraLax Powder)?1?pack/packet?17?gram?By Mouth?Daily?as needed?Constipation Risperidone (RisperDAL 1 mg oral tablet)?1?Milligram?1?tablet?By Mouth?Daily at bedtime rivaroxaban (Xarelto 20 mg oral tablet)?1?tab(s)?20?Milligram?By Mouth?Daily in PM?Daily at supper?with evening meal Senna (Senna 8.6 mg oral tablet)?17.2?Milligram?2?tab(s)?By Mouth?2 times a day Sodium Biphosphate-Sodium Phosphate (Fleet Enema 19 gm-7 gm rectal enema)?1?Each?Rectally?Once?as needed?for constipation?Daily?Give if no BM 8 hrs after Bisacodyl supp Tamsulosin (tamsulosin 0.4 mg oral capsule)?0.4?Milligram?1?capsule?By Mouth?Daily?30 minutes after the same meal ? Inpatient Medications Medications (25) Active SCHEDULED: (14) Aspirin 81 mg Chew Tablet (aspirin 81 mg oral tablet, chewable) ??81 mg, By Mouth, Daily Atorvastatin 40 mg Tablet (atorvastatin 40 mg oral tablet) ??40 mg, By Mouth, Daily at bedtime Carbidopa 25 mg / Levodopa 100 mg Tablet (carbidopa-levodopa 25 mg-100 mg oral tablet) ??1 tablet, By Mouth, 3 times a day Duloxetine 20 mg Capsule (DULoxetine Capsule) ??20 mg, By Mouth, Daily Ferrous Sulfate 325 mg EC Tablet (ferrous sulfate 325 mg oral enteric coated tablet) ??325 mg, By Mouth, Daily Finasteride 5 mg Tablet (finasteride 5 mg oral tablet) ??5 mg, By Mouth, Daily Lactulose 20 Gm/30mL Syrup (lactulose 10 gm/15 ml oral syrup) ??20 Gm 30 mL, By Mouth, Daily NaCl 0.9% Flush 3ml (NaCL 0.9% Flush) ??3 mL, IV Push, Every 8 hours Pantoprazole 20 mg EC Tablet (pantoprazole 20 mg oral delayed release tablet) ??20 mg, By Mouth, Daily Piperacillin/Tazobactam 3.375 Gm Inj (Zosyn Extended IVPB) ??3.375 Gm, IVPB, Every 8 hours Risperidone 1 mg Tablet (RisperDAL 1 mg oral tablet) ??1 mg, By Mouth, Daily at bedtime Rivaroxaban 20 mg Tablet (Xarelto) ??20 mg, By Mouth, Daily Tamsulosin 0.4 mg Capsule (tamsulosin 0.4 mg oral capsule) ??0.4 mg, By Mouth, Daily Vancomycin 1250 mg/250 mL NaCl 0.9% (Vancomycin IVPB) ??1,250 mg 250 mL, IVPB, Every 24 hours CONTINUOUS: (2) Lactated Ringers (1000 mL) Cont IV 1,000 mL (LR 1,000 mL) ??1,000 mL, IV Infusion, 75 mL/hr NaCL 0.9% (1000 mL) Cont IV 500 mL (NaCL 0.9% Bolus 500 mL) ??500 mL, IV Infusion PRN: (9) Acetaminophen 325 mg Tablet (Acetaminophen Tablet) ??650 mg, By Mouth, Every 4 hours Dextromethorphan-Guaifenesin 20 mg-200 mg/10 mL Liqu UD (Robitussin DM Liquid) ??10 mL, By Mouth, Every 4 hours Docusate Sodium 100 mg Capsule (Docusate Sodium Capsule) ??100 mg 1 capsule, By Mouth, 2 times a day Magnesium Hydroxide 8% Susp UD (Milk of Magnesia Liquid) ??30 mL, By Mouth, Daily Melatonin 3 mg Tablet (Melatonin Tablet) ??3 mg, By Mouth, Daily at bedtime NaCl 0.9% Flush 3ml (NaCL 0.9% Flush) ??3 mL, IV Push, Every 8 hours Polyethylene Glycol 17 Gm Powder (MiraLax Powder) ??17 Gm 1 pack/packet, By Mouth, Daily Senna Tablet ??8.6 mg 1 tablet, By Mouth, 2 times a day Simethicone 80 mg Chewable Tablet (Simethicone Tablet) ??80 mg, Chew, 3 times a day ? Results Recent Labs BLOOD COUNT & DIFF WBC 8.4 k/mm3 ()?? 04/06/2024 16:14 RBC 3.41 m/mm3 (Low)?? 04/06/2024 16:14 Hgb 10.7 Gm/dL (Low)?? 04/06/2024 16:14 Hct 33.4 % (Low)?? 04/06/2024 16:14 MCV 97.9 femtoliters (High)?? 04/06/2024 16:14 MCH 31.4 pg ()?? 04/06/2024 16:14 MCHC 32.0 Gm/dL (Low)?? 04/06/2024 16:14 Platelet Count 175 k/mm3 ()?? 04/06/2024 16:14 RDW-SD 54.4 femtoliters (High)?? 04/06/2024 16:14 MPV 8.9 femtoliters (Low)?? 04/06/2024 16:14 Nucleated RBC (Automated) 0.0 #/100 WBC'S ()?? 04/06/2024 16:14 Abs. NRBC 0.0 k/mm3 ()?? 04/06/2024 16:14 Abs. Neut 7.2 k/mm3 (High)?? 04/06/2024 16:14 Abs. Lymph 0.3 k/mm3 (Low)?? 04/06/2024 16:14 Abs. [place] 0.8 k/mm3 ()?? 04/06/2024 16:14 Abs. Eo 0.0 k/mm3 ()?? 04/06/2024 16:14 Abs. Baso 0.0 k/mm3 ()?? 04/06/2024 16:14 Neut % 85.5 % (High)?? 04/06/2024 16:14 Lymph % 3.2 % (Low)?? 04/06/2024 16:14 [place] % 9.5 % ()?? 04/06/2024 16:14 Eos % 0.5 % ()?? 04/06/2024 16:14 Baso % 0.2 % ()?? 04/06/2024 16:14 Imm Gran 1.1 % ()?? 04/06/2024 16:14 Abs. Imm Gran 0.1 k/mm3 ()?? 04/06/2024 16:14 ?? CHEM GENERAL Sodium 140 mmol/L ()?? 04/06/2024 16:14 Potassium 3.7 mmol/L ()?? 04/06/2024 16:14 Chloride 106 mmol/L ()?? 04/06/2024 16:14 Bicarbonate Level 21 mmol/L (Low)?? 04/06/2024 16:14 Anion Gap 13 ()?? 04/06/2024 16:14 Glucose Level 201 mg/dL (High)?? 04/06/2024 16:14 Glucose, POC 197 mg/dL (High)?? 04/06/2024 16:07 BUN 16 mg/dL ()?? 04/06/2024 16:14 Creatinine-Blood 1.14 mg/dL ()?? 04/06/2024 16:14 Estimated GFR Creatinine 65 ML/MIN/1.73 M2 ()?? 04/06/2024 16:14 Calcium 8.8 mg/dL ()?? 04/06/2024 16:14 Protein, Total 6.3 Gm/dL ()?? 04/06/2024 16:14 Albumin 3.3 Gm/dL (Low)?? 04/06/2024 16:14 AG Ratio 1.1 ()?? 04/06/2024 16:14 Alkaline Phosphatase 68 units/L ()?? 04/06/2024 16:14 Lipase 20 units/L ()?? 04/06/2024 16:14 AST (SGOT) 12 units/L ()?? 04/06/2024 16:14 ALT (SGPT) <5 units/L ()?? 04/06/2024 16:14 Bilirubin, Total 0.4 mg/dL ()?? 04/06/2024 16:14 Lactate 1.5 mmol/L ()?? 04/06/2024 19:32 ?? UA/URINALYSIS Appear/Color, Urine YELLOW ()?? 04/06/2024 16:40 Specific [place], Urine 1.009 ()?? 04/06/2024 16:40 pH, Urine 6.0 ()?? 04/06/2024 16:40 Albumin, Urine TRACE (Abnormal)?? 04/06/2024 16:40 Glucose, Urine NEGATIVE ()?? 04/06/2024 16:40 Ketones, Urine NEGATIVE ()?? 04/06/2024 16:40 Bilirubin, Urine NEGATIVE ()?? 04/06/2024 16:40 Hemoglobin, Urine 3+ (Abnormal)?? 04/06/2024 16:40 Nitrite, Urine POSITIVE (Abnormal)?? 04/06/2024 16:40 Leukocyte, Urine 3+ (Abnormal)?? 04/06/2024 16:40 Urobilinogen NORMAL mg/dL ()?? 04/06/2024 16:40 WBC's, Urine 150 /HPF (High)?? 04/06/2024 16:40 RBC's, Urine 110 /HPF (High)?? 04/06/2024 16:40 Bacteria HEAVY HPF (Abnormal)?? 04/06/2024 16:40 Squamous Epith 1 /HPF ()?? 04/06/2024 16:40 ? Abnormal Labs ?? BLOOD COUNT & DIFF Abs. Imm Gran?0.1 k/mm3 ()?04/06/2024 16:14 Abs. Lymph?0.3 k/mm3 (Low)?04/06/2024 16:14 Abs. NRBC?0.0 k/mm3 ()?04/06/2024 16:14 Abs. Neut?7.2 k/mm3 (High)?04/06/2024 16:14 Hct?33.4 % (Low)?04/06/2024 16:14 Hgb?10.7 Gm/dL (Low)?04/06/2024 16:14 Imm Gran?1.1 % ()?04/06/2024 16:14 Lymph %?3.2 % (Low)?04/06/2024 16:14 MCHC?32.0 Gm/dL (Low)?04/06/2024 16:14 MCV?97.9 femtoliters (High)?04/06/2024 16:14 MPV?8.9 femtoliters (Low)?04/06/2024 16:14 Neut %?85.5 % (High)?04/06/2024 16:14 Nucleated RBC (Automated)?0.0 #/100 WBC'S ()?04/06/2024 16:14 RBC?3.41 m/mm3 (Low)?04/06/2024 16:14 RDW-SD?54.4 femtoliters (High)?04/06/2024 16:14 ?? CHEM GENERAL AG Ratio?1.1 ()?04/06/2024 16:14 Albumin?3.3 Gm/dL (Low)?04/06/2024 16:14 Bicarbonate Level?21 mmol/L (Low)?04/06/2024 16:14 Estimated GFR Creatinine?65 ML/MIN/1.73 M2 ()?04/06/2024 16:14 Glucose Level?201 mg/dL (High)?04/06/2024 16:14 Glucose, POC?197 mg/dL (High)?04/06/2024 16:07 ?? UA/URINALYSIS Albumin, Urine?TRACE (Abnormal)?04/06/2024 16:40 Appear/Color, Urine?YELLOW ()?04/06/2024 16:40 Bacteria?HEAVY HPF (Abnormal)?04/06/2024 16:40 Bilirubin, Urine?NEGATIVE ()?04/06/2024 16:40 Glucose, Urine?NEGATIVE ()?04/06/2024 16:40 Hemoglobin, Urine?3+ (Abnormal)?04/06/2024 16:40 Hold Urine Culture?Testing available 48 hours from time of collection. () ?04/06/2024 16:40 Ketones, Urine?NEGATIVE ()?04/06/2024 16:40 Leukocyte, Urine?3+ (Abnormal)?04/06/2024 16:40 Nitrite, Urine?POSITIVE (Abnormal)?04/06/2024 16:40 RBC's, Urine?110 /HPF (High)?04/06/2024 16:40 Urobilinogen?NORMAL mg/dL ()?04/06/2024 16:40 WBC's, Urine?150 /HPF (High)?04/06/2024 16:40 ?? Note: Critical results are displayed in red. ? Urinalysis Albumin, Urine: TRACE Abnormal (16:40) Appear/Color, Urine: YELLOW (16:40) Bacteria: HEAVY Abnormal (16:40) Bilirubin, Urine: NEGATIVE (16:40) Glucose, Urine: NEGATIVE (16:40) Hemoglobin, Urine: 3+ Abnormal (16:40) Hold Urine Culture: Testing available 48 hours from time of collection. (16:40) Ketones, Urine: NEGATIVE (16:40) Leukocyte, Urine: 3+ Abnormal (16:40) Nitrite, Urine: POSITIVE Abnormal (16:40) pH, Urine: 6 (16:40) RBC's, Urine:??110 /HPF??High (16:40) Specific [place], Urine: 1.009 (16:40) Squamous Epith: 1 /HPF (16:40) Urobilinogen: NORMAL (16:40) WBC's, Urine:??150 /HPF??High (16:40) ?? Blood Gases?? No qualifying data available. ? EKG study * Event Display: ECG 12-Lead Authored Date: Please click on pdf link to open report * Event Display: ECG 12-Lead Authored Date: Ventricular Rate: 38 BPM QRS Duration: 92 ms Q-T Interval: 502 ms QTC Calculation(Bazett): 399 ms R Independence: 60 degrees T Independence: 61 degrees Atrial fibrillation with slow ventricular response with premature ventricular or aberrantly conducted complexes Abnormal ECG When compared with ECG of 06-Apr-2024 16:09, Heart rate has decreased from 108 to 38 bpm Confirmed by Derek Denton ([id number]) on 04/08/2024 7:35:54 AM [place]: Derek Denton * Event Display: ECG 12-Lead Authored Date: [id number] Please click on pdf link to open report * Event Display: ECG 12-Lead Authored Date: Ventricular Rate: 108 BPM QRS Duration: 114 ms Q-T Interval: 324 ms QTC Calculation(Bazett): 434 ms R Independence: 41 degrees T Independence: 18 degrees Atrial fibrillation with rapid ventricular response Abnormal ECG When compared with ECG of 23-May-2023 08:04, Vent. rate has increased by 37 bpm QT has shortened Confirmed by Derek Denton ([id number]) on 04/07/2024 8:22:52 AM [place]: Derek Denton [facility] Progress note * Alissa Redding DO: PERFORM Event Display: [facility] Authored Date: Patient: ??KRISTY BANDA ? Age:??79 Years?Sex:??Male?:??1945?? Subjective No acute events overnight This AM: Pt resting comfortably in bed without any complaints, eating breakfast, states he is all good .?? Review of Systems A full review of systems was completed and is otherwise negative except as mentioned in history of present illness Allergies Allergies ?(Active and Proposed Allergies Only) Depakote? (Severity: Unknown severity, Onset: Unknown) ?Reactions: Ataxia TEGretol? (Severity: Unknown severity, Onset: Unknown) Objective Vital Signs?? Temperature: 97.3 DegF (04/09/24 11:00:00) Temperature Route: Oral (04/09/24 11:00:00) Pulse Rate: 84 bpm (04/09/24 11:00:00) Respiratory Rate: 18 br/min (04/09/24 11:00:00) Systolic Blood Pressure: 136 mm Hg (04/09/24 11:00:00) Diastolic Blood Pressure: 83 mm Hg (04/09/24 11:00:00) Blood pressure sites: Arm, right (04/09/24 11:00:00) Pulse Pressure: 64 mm Hg (04/09/24 03:00:00) Oxygen Saturation: 100 % (04/09/24 11:00:00) Mode of Delivery (Oxygen): Room air (04/09/24 11:00:00) Early Warning Score: 2 (04/09/24 11:41:17) ? Ventilator Settings?? No qualifying data available. ?? Intake/Output? 04/06 17:56 04/09 07:00 04/08 07:00 04/07 07:00 04/06 07:00 ?? 04/09 11:47 04/09 11:47 04/09 06:59 04/08 06:59 04/07 06:59 Intake ? 2770 ?180 ? 1180 ? 1160 ?250 Output ? 6600 ?850 ? 4350 ? 1400 ?0 Net Total ?-3830 ? -670 ?-3170 ? -240 ?250 ? Urine Count ?3 ?0 ?1 ?2 ?0 ? Physical Exam Constitutional: Alert, in no distress. Mental Status: Oriented to person, place and not time. Respiratory: Clear to auscultation. No wheezing, rales or rhonchi. Cardiovascular: S1 S2 regular. No murmurs, rubs or gallops. Gastrointestinal: Abdomen soft, non-tender, non-distended. Normal bowel sounds. Neurologic: No focal neurological deficits.?? Musculoskeletal: No gross deformities.?? _ Inpatient Medications Medications (23) Active SCHEDULED: (13) Aspirin 81 mg Chew Tablet (aspirin 81 mg oral tablet, chewable) ??81 mg, By Mouth, Daily Atorvastatin 40 mg Tablet (atorvastatin 40 mg oral tablet) ??40 mg, By Mouth, Daily at bedtime Carbidopa 25 mg / Levodopa 100 mg Tablet (carbidopa-levodopa 25 mg-100 mg oral tablet) ??1 tablet, By Mouth, 3 times a day Duloxetine 20 mg Capsule (DULoxetine Capsule) ??20 mg, By Mouth, Daily Ferrous Sulfate 325 mg EC Tablet (ferrous sulfate 325 mg oral enteric coated tablet) ??325 mg, By Mouth, Daily Finasteride 5 mg Tablet (finasteride 5 mg oral tablet) ??5 mg, By Mouth, Daily Lactulose 20 Gm/30mL Syrup (lactulose 10 gm/15 ml oral syrup) ??20 Gm 30 mL, By Mouth, Daily NaCl 0.9% Flush 3ml (NaCL 0.9% Flush) ??3 mL, IV Push, Every 8 hours Pantoprazole 20 mg EC Tablet (pantoprazole 20 mg oral delayed release tablet) ??20 mg, By Mouth, Daily Piperacillin/Tazobactam 3.375 Gm Inj (Zosyn Extended IVPB) ??3.375 Gm, IVPB, Every 8 hours Risperidone 1 mg Tablet (RisperDAL 1 mg oral tablet) ??1 mg, By Mouth, Daily at bedtime Rivaroxaban 20 mg Tablet (Xarelto) ??20 mg, By Mouth, Daily Tamsulosin 0.4 mg Capsule (tamsulosin 0.4 mg oral capsule) ??0.4 mg, By Mouth, Daily CONTINUOUS: (0) PRN: (10) Acetaminophen 325 mg Tablet (Acetaminophen Tablet) ??650 mg, By Mouth, Every 4 hours Atropine 0.1 mg/mL Inj (10 mL) (Atropine Inj) ??1 mg 10 mL, IV Push Slowly, Every 5 minutes Dextromethorphan-Guaifenesin 20 mg-200 mg/10 mL Liqu UD (Robitussin DM Liquid) ??10 mL, By Mouth, Every 4 hours Docusate Sodium 100 mg Capsule (Docusate Sodium Capsule) ??100 mg 1 capsule, By Mouth, 2 times a day Magnesium Hydroxide 8% Susp UD (Milk of Magnesia Liquid) ??30 mL, By Mouth, Daily Melatonin 3 mg Tablet (Melatonin Tablet) ??3 mg, By Mouth, Daily at bedtime NaCl 0.9% Flush 3ml (NaCL 0.9% Flush) ??3 mL, IV Push, Every 8 hours Polyethylene Glycol 17 Gm Powder (MiraLax Powder) ??17 Gm 1 pack/packet, By Mouth, Daily Senna Tablet ??8.6 mg 1 tablet, By Mouth, 2 times a day Simethicone 80 mg Chewable Tablet (Simethicone Tablet) ??80 mg, Chew, 3 times a day ? 72 Hour Antibiotic History Active Antibiotics Calendar Day Last Administered First Administered Piperacillin-Tazobactam??3.375 Gm, 25 mL/hr, IVPB, Every 8 hours ?1 04/09/2024 11:01 04/09/2024 11:01 ? Stopped Antibiotics Stop Date/Time Last Administered First Administered Ceftriaxone??1 Gm, 100 mL/hr, IVPB, Every 24 hours 04/09/2024 08:23 04/08/2024 15:40 04/08/2024 15:40 Piperacillin-Tazobactam??3.375 Gm, 25 mL/hr, IVPB, Every 8 hours 04/08/2024 14:47 04/08/2024 08:04 04/06/2024 22:20 Vancomycin??1,250 mg, 250 mL, 250 mL/hr, IVPB, Every 24 hours 04/07/2024 12:58 04/06/2024 23:11 04/06/2024 23:11 ? Results Recent Labs BACTERIOLOGY Urine Culture Results Final report (Abnormal)?? 04/06/2024 16:40 Blood Culture Results Preliminary report ()?? 04/08/2024 08:30 Blood Culture Isolate 1 Comment ()?? 04/08/2024 08:30 Blood Cult 2 Results Preliminary report ()?? 04/08/2024 08:30 Blood Culture 2 Isolate 1 Comment ()?? 04/08/2024 08:30 Urine Culture Isolate 1 Escherichia coli (Abnormal)?? 04/06/2024 16:40 Urine Cult Antimicrobial Susceptibility Comment ()?? 04/06/2024 16:40 ?? BLOOD COUNT & DIFF WBC 5.3 k/mm3 ()?? 04/09/2024 03:52 RBC 3.32 m/mm3 (Low)?? 04/09/2024 03:52 Hgb 10.5 Gm/dL (Low)?? 04/09/2024 03:52 Hct 32.7 % (Low)?? 04/09/2024 03:52 MCV 98.5 femtoliters (High)?? 04/09/2024 03:52 MCH 31.6 pg ()?? 04/09/2024 03:52 MCHC 32.1 Gm/dL (Low)?? 04/09/2024 03:52 Platelet Count 172 k/mm3 ()?? 04/09/2024 03:52 RDW-SD 54.6 femtoliters (High)?? 04/09/2024 03:52 MPV 9.4 femtoliters ()?? 04/09/2024 03:52 Nucleated RBC (Automated) 0.0 #/100 WBC'S ()?? 04/09/2024 03:52 Abs. NRBC 0.0 k/mm3 ()?? 04/09/2024 03:52 ?? CHEM GENERAL Sodium 141 mmol/L ()?? 04/09/2024 03:54 Potassium 3.5 mmol/L (Low)?? 04/09/2024 03:54 Chloride 107 mmol/L ()?? 04/09/2024 03:54 Bicarbonate Level 24 mmol/L ()?? 04/09/2024 03:54 Anion Gap 10 ()?? 04/09/2024 03:54 Glucose Level 123 mg/dL (High)?? 04/09/2024 03:54 BUN 11 mg/dL ()?? 04/09/2024 03:54 Creatinine-Blood 1.03 mg/dL ()?? 04/09/2024 03:54 Estimated GFR Creatinine 73 ML/MIN/1.73 M2 ()?? 04/09/2024 03:54 Calcium 9.0 mg/dL ()?? 04/09/2024 03:54 Phosphorus 2.8 mg/dL ()?? 04/09/2024 03:54 Magnesium 1.9 mg/dL ()?? 04/09/2024 03:54 Vitamin B12 Level 756 pg/mL ()?? 04/08/2024 08:30 Iron Level 21 mcg/dL (Low)?? 04/08/2024 08:30 Iron Binding Capacity, Unsaturated 237 mcg/dL ()?? 04/08/2024 08:30 Iron Binding Capacity, Estimated Total 258 mcg/dL ()?? 04/08/2024 08:30 % Iron Saturation 8 % (Low)?? 04/08/2024 08:30 ? Assessment/Plan 79 years old male with past medical history of hypertension, A-fib (on Xarelto), GERD, BPH, recurrent UTI, Parkinson disease, bipolar disorder, dementia who BIBEMS from SNF due to??status, likely??secondary to infectious encephalopathy in the setting of??E. coli bacteremia secondary to??UTI, currently on IV antibiotics ?? Sepsis (A41.9) ?Caused by??E.Coli Urinary tract infection (N39.0),??Fever (R50.9), E.Coli bacteremia ? Patient presents with??confusion,??decreased urine output, rectal temperature 104.1, initially tachycardic,??UA??is remarkable for nitrate positive, 3+ leukocyte, WBC 150, heavy bacteria, 110 RBCs.?Also initially hypotensive,??lactate elevated to 3.2 >??1.5 Presented with altered mental status, and decreased urine output and febrile,??and tachycardic??meeting SIRS criteria, UA remarkable for nitrites, leukocytes and WBCs with hyper bacteriuria Blood cultures positive for E. coli bacteremia, urine culture positive for ESBL E.Coli, bcx is pending sensitivities Giving ESBL with transition to zosyn, depending on blood culture sensitiviites, antimicrobial stewardship will likely recommend bactrim as PO abx ?? Plan: -Follow-up blood cultures and??urine culture for sensitivities -Resumed Zosyn -dc ceftriaxone -Awaiting blood cultures sensitivities ?? Atrial fibrillation with slow ventricular response (I48.91) ?Associated with??Hypertension (I10) Patient with??heart rate fluctuating between??35 to??110s Likely in the setting of sepsis,??cardiology consulted for tachy-luca and recommended to dc metoprolol? Plan: - discontinued home metoprolol per cardiology recommendation - continue telemetry - continue aspirin and statin, along with home xarelto ?? Hypoalbuminemia (E88.09):??Albumin is 3.2. Nutrition consulted Parkinson disease (G20.A1)/??Dementia (F03.90):High risk for delirium. Bowel regimen in place. Continue home carbidopa-levodopa?? Bipolar disorder (F31.9):??Continue home duloxetine and risperidone Anemia (D64.9):??Hemoglobin 10.7 (baseline 12). No signs of bleeding. Continue with??ferrous sulfate. Monitor HH Chronic GERD (K21.9):??Continue with pantoprazole Acute urinary retention (R33.8)/BPH (benign prostatic hyperplasia) (N40.0): Urinary retention 430 s/p straight cath, then retained >600 cc,??voiding independently today??per nursing. If continues to retain will need [facility]. Continue home tamsulosin and finasteride ?? Quality Measures: Code status: Full DVT prophylaxis: Xarelto Diet: Cardiac OMN: IV abx for urosepsis, awaiting sensitivities for blood culture, then can switch to PO abx and discharge to rehab (has bed hold) Disposition: likely 1-2 days Family:??Niece ?? Patient??discussed with attending physician ?? Alissa Redding, DO Internal Medicine, PGY-2 Pager [phone] * Ruperto Zayas MD: PERFORM Event Display: Progress Note Hospital Authored Date: Diagnoses: Sepsis???fever, tachycardia ESBL E. coli bacteremia E. coli urinary tract infection CKD 2 Permanent atrial fibrillation Secondary hypercoagulable state Schizoaffective disorder Parkinson's disease ?? I evaluated the patient on date of service 04/09/2024. I saw and evaluated this patient with Dr. Redding and agree with the resident???s findings and plan of care as documented by the resident or edited by me. I spent 35 minutes on the following: preparing to see the patient (eg, review of tests), obtaining and/or reviewing separately obtained history, performing a medically appropriate examination and/or evaluation and counseling and educating the patient/family/caregiver.Billing Level: [id number] * Janey TORRES, Sole: PERFORM, SIGN, VERIFY Event Display: Progress Note Hospital Authored Date: [id number] Patient: KRISTY BANDA Age: 79 years Sex: Male : 1945 Associated Diagnoses: None Author: Janey TORRES, Susana Findings Problem Related to Alteration in Genitourinary : Alteration in Genitourinary Function/new 04/09/2024 6:00 EST Alteration in Status Related to UTI Goals & Outcomes, Genitourinary Pt will achieve normal/improved fluid balance, Pt will maintainadequate GI function appropriate for pt, Pt will maintain adequate function appropriate for pt, Pt will maintain normal fluid balance, Pt will resume normal pattern of elimination Interventions, Assess/monitor/maintain Genitourinary status, Assist & encourage pt with meticulous tia care BH Goals/Interventions, Genitourinary Yes Genitourinary, Problem Start 04/07/2024 18:22 Reviewed Plan with, Genitourinary Patient Patient Progression, Genitourinary Patient progressing according to plan Genitourinary, Problem Ongoing Yes . Evaluation Patient alert and oriented to self only. Patient continues to be afebrile. Patient remains on room air. No shortness of breath or distress noted. At this time, patient makes no complaints to this process description writer and prn interventions have been applied as needed. Patient abdomen remains soft and nontender. Patient was administered his scheduled medications and PRN with no difficulties. Nursing will continue to monitor and treat accordingly.. * Alissa Redding DO: MODIFY, PERFORM Event Display: Progress Note Hospital Authored Date: Patient: ??KRISTY BANDA ? Age:??79 Years?Sex:??Male?:??1945?? Subjective No acute events overnight This AM pt resting comfortably in bed, AOx2 not oriented to time, has no complaints. Discussed withpatient we are treating his infection with IV abx.?? Review of Systems A full review of systems was completed and is otherwise negative except as mentioned in history of present illness Allergies Allergies ?(Active and Proposed Allergies Only) Depakote? (Severity: Unknown severity, Onset: Unknown) ?Reactions: Ataxia TEGretol? (Severity: Unknown severity, Onset: Unknown) Objective Vital Signs?? Temperature: 97.2 DegF (04/08/24 11:00:00) Temperature Route: Oral (04/08/24 11:00:00) Pulse Rate: 74 bpm (04/08/24 11:00:00) Respiratory Rate: 18 br/min (04/08/24 11:00:00) Systolic Blood Pressure: 124 mm Hg (04/08/24 11:00:00) Diastolic Blood Pressure: 78 mm Hg (04/08/24 11:00:00) Blood pressure sites: Arm, left (04/08/24 11:00:00) Pulse Pressure: 46 mm Hg (04/08/24 11:00:00) Oxygen Saturation: 100 % (04/08/24 11:00:00) Mode of Delivery (Oxygen): Room air (04/08/24 11:00:00) Early Warning Score: 5 (04/08/24 11:17:56) ? Ventilator Settings?? No qualifying data available. ?? Intake/Output? 04/06 17:56 04/08 07:00 04/07 07:00 04/06 07:00 04/05 07:00 ?? 04/08 14:50 04/08 14:50 04/08 06:59 04/07 06:59 04/06 06:59 Intake ? 2110 ?700 ? 1160 ?250 ?0 Output ? 3000 ? 1600 ? 1400 ?0 ?0 Net Total ? -890 ? -900 ? -240 ?250 ?0 ? Urine Count ?2 ?0 ?2 ?0 ?0 ? Physical Exam Constitutional: Alert, in no distress. Mental Status: Oriented to person, place and not time. Respiratory: Clear to auscultation. No wheezing, rales or rhonchi. Cardiovascular: S1 S2 regular. No murmurs, rubs or gallops. Gastrointestinal: Abdomen soft, non-tender, non-distended. Normal bowel sounds. Neurologic: No focal neurological deficits.?? Musculoskeletal: No gross deformities.?? _ Inpatient Medications Medications (23) Active SCHEDULED: (13) Aspirin 81 mg Chew Tablet (aspirin 81 mg oral tablet, chewable) ??81 mg, By Mouth, Daily Atorvastatin 40 mg Tablet (atorvastatin 40 mg oral tablet) ??40 mg, By Mouth, Daily at bedtime Carbidopa 25 mg / Levodopa 100 mg Tablet (carbidopa-levodopa 25 mg-100 mg oral tablet) ??1 tablet, By Mouth, 3 times a day Ceftriaxone (Ceftriaxone Inj) ??1 Gm, IVPB, Every 24 hours Duloxetine 20 mg Capsule (DULoxetine Capsule) ??20 mg, By Mouth, Daily Ferrous Sulfate 325 mg EC Tablet (ferrous sulfate 325 mg oral enteric coated tablet) ??325 mg, By Mouth, Daily Finasteride 5 mg Tablet (finasteride 5 mg oral tablet) ??5 mg, By Mouth, Daily Lactulose 20 Gm/30mL Syrup (lactulose 10 gm/15 ml oral syrup) ??20 Gm 30 mL, By Mouth, Daily NaCl 0.9% Flush 3ml (NaCL 0.9% Flush) ??3 mL, IV Push, Every 8 hours Pantoprazole 20 mg EC Tablet (pantoprazole 20 mg oral delayed release tablet) ??20 mg, By Mouth, Daily Risperidone 1 mg Tablet (RisperDAL 1 mg oral tablet) ??1 mg, By Mouth, Daily at bedtime Rivaroxaban 20 mg Tablet (Xarelto) ??20 mg, By Mouth, Daily Tamsulosin 0.4 mg Capsule (tamsulosin 0.4 mg oral capsule) ??0.4 mg, By Mouth, Daily CONTINUOUS: (0) PRN: (10) Acetaminophen 325 mg Tablet (Acetaminophen Tablet) ??650 mg, By Mouth, Every 4 hours Atropine 0.1 mg/mL Inj (10 mL) (Atropine Inj) ??1 mg 10 mL, IV Push Slowly, Every 5 minutes Dextromethorphan-Guaifenesin 20 mg-200 mg/10 mL Liqu UD (Robitussin DM Liquid) ??10 mL, By Mouth, Every 4 hours Docusate Sodium 100 mg Capsule (Docusate Sodium Capsule) ??100 mg 1 capsule, By Mouth, 2 times a day Magnesium Hydroxide 8% Susp UD (Milk of Magnesia Liquid) ??30 mL, By Mouth, Daily Melatonin 3 mg Tablet (Melatonin Tablet) ??3 mg, By Mouth, Daily at bedtime NaCl 0.9% Flush 3ml (NaCL 0.9% Flush) ??3 mL, IV Push, Every 8 hours Polyethylene Glycol 17 Gm Powder (MiraLax Powder) ??17 Gm 1 pack/packet, By Mouth, Daily Senna Tablet ??8.6 mg 1 tablet, By Mouth, 2 times a day Simethicone 80 mg Chewable Tablet (Simethicone Tablet) ??80 mg, Chew, 3 times a day ? 72 Hour Antibiotic History Stopped Antibiotics Stop Date/Time Last Administered First Administered Piperacillin-Tazobactam??3.375 Gm, 25 mL/hr, IVPB, Every 8 hours 04/08/2024 14:47 04/08/2024 08:04 04/06/2024 22:20 Vancomycin??1,250 mg, 250 mL, 250 mL/hr, IVPB, Every 24 hours 04/07/2024 12:58 04/06/2024 23:11 04/06/2024 23:11 ? Results Recent Labs BACTERIOLOGY Urine Culture Results Preliminary report (Abnormal)?? 04/06/2024 16:40 Blood Culture Results Preliminary report (Abnormal)?? 04/06/2024 16:10 Blood Culture Isolate 1 Gram negative rods (Abnormal)?? 04/06/2024 16:10 Blood Cult 2 Results Preliminary report (Abnormal)?? 04/06/2024 16:14 Reflex to Rapid ID, SHWETHA, Culture 2 Comment ()?? 04/06/2024 16:14 Blood Culture 2 Isolate 1 Gram negative rods (Abnormal)?? 04/06/2024 16:14 A calcoaceticus-baumannii comp,Culture 2 Not Detected ()?? 04/06/2024 16:14 Bacteroides fragilis, Culture 2 Not Detected ()?? 04/06/2024 16:14 Enterobacterales, Culture 2 DETECTED (Abnormal)?? 04/06/2024 16:14 Enterobacter cloacae complex, Culture 2 Not Detected ()?? 04/06/2024 16:14 Escherichia coli, Culture 2 DETECTED (Abnormal)?? 04/06/2024 16:14 Klebsiella aerogenes, Culture 2 Not Detected ()?? 04/06/2024 16:14 Klebsiella oxytoca, Culture 2 Not Detected ()?? 04/06/2024 16:14 Klebsiella pneumoniae group, Culture 2 Not Detected ()?? 04/06/2024 16:14 Proteus spp., Culture 2 Not Detected ()?? 04/06/2024 16:14 Salmonella spp., Culture 2 Not Detected ()?? 04/06/2024 16:14 Serratia marcescens, Culture 2 Not Detected ()?? 04/06/2024 16:14 Haemophilus influenzae, Culture 2 Not Detected ()?? 04/06/2024 16:14 Neisseria meningitidis, Culture 2 Not Detected ()?? 04/06/2024 16:14 Pseudomonas aeruginosa, Culture 2 Not Detected ()?? 04/06/2024 16:14 Stenotrophomonas maltophilia, Culture 2 Not Detected ()?? 04/06/2024 16:14 Enterococcus faecalis, Culture 2 Not Detected ()?? 04/06/2024 16:14 Enterococcus faecium, Culture 2 Not Detected ()?? 04/06/2024 16:14 Listeria monocytogenes, Culture 2 Not Detected ()?? 04/06/2024 16:14 Staphylococcus spp., Culture 2 Not Detected ()?? 04/06/2024 16:14 Staphylococcus aureus, Culture 2 Not Detected ()?? 04/06/2024 16:14 Staphylococcus epidermidis, Culture 2 Not Detected ()?? 04/06/2024 16:14 Staphylococcus lugdunensis, Culture 2 Not Detected ()?? 04/06/2024 16:14 Streptococcus spp., Culture 2 Not Detected ()?? 04/06/2024 16:14 Streptococcus agalactiae, Culture 2 Not Detected ()?? 04/06/2024 16:14 Streptococcus pneumoniae, Culture 2 Not Detected ()?? 04/06/2024 16:14 Streptococcus pyogenes, Culture 2 Not Detected ()?? 04/06/2024 16:14 Ni albicans, Culture 2 Not Detected ()?? 04/06/2024 16:14 Ni auris, Culture 2 Not Detected ()?? 04/06/2024 16:14 Ni glabrata, Culture 2 Not Detected ()?? 04/06/2024 16:14 Ni krusei, Culture 2 Not Detected ()?? 04/06/2024 16:14 Ni parapsilosis, Culture 2 Not Detected ()?? 04/06/2024 16:14 Ni tropicalis, Culture 2 Not Detected ()?? 04/06/2024 16:14 Cryptococcus neoformans/gattii,Culture 2 Not Detected ()?? 04/06/2024 16:14 IMP (Carbapenemases), Culture 2 Not Detected ()?? 04/06/2024 16:14 KPC (Carbapenemases), Culture 2 Not Detected ()?? 04/06/2024 16:14 OXA-48-like (Carbapenemases), Culture 2 Not Detected ()?? 04/06/2024 16:14 NDM (Carbapenemases), Culture 2 Not Detected ()?? 04/06/2024 16:14 VIM (Carbapenemases), Culture 2 Not Detected ()?? 04/06/2024 16:14 mcr-1 (Colistin Resistance), Culture 2 Not Detected ()?? 04/06/2024 16:14 CTX-M (ESBL), Culture 2 Not Detected ()?? 04/06/2024 16:14 mecA/C(Methicillin Resistance),Culture 2 Not applicable ()?? 04/06/2024 16:14 mecA/C and MREJ (MRSA), Culture 2 Not applicable ()?? 04/06/2024 16:14 Laura/B (Vancomycin Resistance),Culture 2 Not applicable ()?? 04/06/2024 16:14 Urine Culture Isolate 1 Gram negative rods (Abnormal)?? 04/06/2024 16:40 ?? BLOOD COUNT & DIFF WBC 5.3 k/mm3 ()?? 04/08/2024 08:30 RBC 3.72 m/mm3 (Low)?? 04/08/2024 08:30 Hgb 11.8 Gm/dL (Low)?? 04/08/2024 08:30 Hct 37.7 % (Low)?? 04/08/2024 08:30 MCV 101.3 femtoliters (High)?? 04/08/2024 08:30 MCH 31.7 pg ()?? 04/08/2024 08:30 MCHC 31.3 Gm/dL (Low)?? 04/08/2024 08:30 Platelet Count 180 k/mm3 ()?? 04/08/2024 08:30 RDW-SD 56.5 femtoliters (High)?? 04/08/2024 08:30 MPV 9.4 femtoliters ()?? 04/08/2024 08:30 Nucleated RBC (Automated) 0.0 #/100 WBC'S ()?? 04/08/2024 08:30 Abs. NRBC 0.0 k/mm3 ()?? 04/08/2024 08:30 ?? CHEM GENERAL Sodium 146 mmol/L (High)?? 04/08/2024 08:30 Potassium 3.9 mmol/L ()?? 04/08/2024 08:30 Chloride 111 mmol/L (High)?? 04/08/2024 08:30 Bicarbonate Level 23 mmol/L ()?? 04/08/2024 08:30 Anion Gap 12 ()?? 04/08/2024 08:30 Glucose Level 122 mg/dL (High)?? 04/08/2024 08:30 Glucose, POC 117 mg/dL (High)?? 04/07/2024 21:22 BUN 13 mg/dL ()?? 04/08/2024 08:30 Creatinine-Blood 1.18 mg/dL ()?? 04/08/2024 08:30 Estimated GFR Creatinine 62 ML/MIN/1.73 M2 ()?? 04/08/2024 08:30 Calcium 9.5 mg/dL ()?? 04/08/2024 08:30 Phosphorus 2.9 mg/dL ()?? 04/08/2024 08:30 Magnesium 2.2 mg/dL ()?? 04/08/2024 08:30 Protein, Total 5.8 Gm/dL (Low)?? 04/07/2024 05:20 Albumin 3.0 Gm/dL (Low)?? 04/07/2024 05:20 AG Ratio 1.1 ()?? 04/07/2024 05:20 Alkaline Phosphatase 62 units/L ()?? 04/07/2024 05:20 AST (SGOT) 15 units/L ()?? 04/07/2024 05:20 ALT (SGPT) 8 units/L ()?? 04/07/2024 05:20 Bilirubin, Total 0.6 mg/dL ()?? 04/07/2024 05:20 Vitamin B12 Level 756 pg/mL ()?? 04/08/2024 08:30 Iron Level 21 mcg/dL (Low)?? 04/08/2024 08:30 Iron Binding Capacity, Unsaturated 237 mcg/dL ()?? 04/08/2024 08:30 Iron Binding Capacity, Estimated Total 258 mcg/dL ()?? 04/08/2024 08:30 % Iron Saturation 8 % (Low)?? 04/08/2024 08:30 ? Assessment/Plan 79 years old male with past medical history of hypertension, A-fib (on Xarelto), GERD, BPH, recurrent UTI, Parkinson disease, bipolar disorder, dementia who BIBEMS from SNF due to??status, likely??secondary to infectious encephalopathy in the setting of??E. coli bacteremia secondary to??UTI, currently on IV antibiotics ?? Sepsis (A41.9) ?Caused by??Urinary tract infection (N39.0),??Fever (R50.9), GNR bacteremia ? Patient presents with??confusion,??decreased urine output, rectal temperature 104.1, initially tachycardic,??UA??is remarkable for nitrate positive, 3+ leukocyte, WBC 150, heavy bacteria, 110 RBCs.?Also initially hypotensive,??lactate elevated to 3.2 >??1.5 Presented with altered mental status, and decreased urine output and febrile,??and tachycardic??meeting SIRS criteria, UA remarkable for nitrites, leukocytes and WBCs with hyper bacteriuria Blood cultures positive for E. coli bacteremia, urine culture positive for gram- negative rods, bothare pending sensitivities Given antibiogram data, will??de-escalate antibiotics from Zosyn to??ceftriaxone 1 g daily, no??indications for vancomycin at this time ?? Plan: -Follow-up blood cultures and??urine culture for sensitivities -Discontinued Zosyn -Starting??ceftriaxone??1 g daily for 5-day course -Repeat blood cultures pending ?? Atrial fibrillation with slow ventricular response (I48.91) ?Associated with??Hypertension (I10) Patient with??heart rate fluctuating between??35 to??110s Likely in the setting of sepsis,??cardiology consulted for tachy-luca and recommended to dc metoprolol? Plan: - discontinued home metoprolol per cardiology recommendation - continue telemetry - continue aspirin and statin, along with home xarelto ?? Hypoalbuminemia (E88.09):??Albumin is 3.2. Nutrition consulted Parkinson disease (G20.A1)/??Dementia (F03.90):High risk for delirium. Bowel regimen in place. Continue home carbidopa-levodopa?? Bipolar disorder (F31.9):??Continue home duloxetine and risperidone Anemia (D64.9):??Hemoglobin 10.7 (baseline 12). No signs of bleeding. Continue with??ferrous sulfate. Monitor HH Chronic GERD (K21.9):??Continue with pantoprazole Acute urinary retention (R33.8)/BPH (benign prostatic hyperplasia) (N40.0): Urinary retention 430 s/p straight cath, then retained >600 cc,??voiding independently today??per nursing. If continues to retain will need medina. Continue home tamsulosin and finasteride ?? Quality Measures: Code status: Full DVT prophylaxis: Xarelto Diet: Cardiac OMN: IV abx for urosepsis Disposition: likely 3-4 days Family:??Niece ?? Patient??discussed with attending physician ?? Alissa Redding, Internal Medicine, PGY-2 Pager [phone] * Ruperto Zayas MD: PERFORM Event Display: Progress Note Hospital Authored Date: Diagnoses: Sepsis???fever, tachycardia ESBL E. coli bacteremia E. coli urinary tract infection CKD 2 Permanent atrial fibrillation Secondary hypercoagulable state Schizoaffective disorder Parkinson's disease ?? I evaluated the patient on date of service 04/08/2024. I saw and evaluated this patient with Dr. Redding and agree with the resident???s findings and plan of care as documented by the resident or edited by me. I spent 36 minutes on the following: preparing to see the patient (eg, review of tests), obtaining and/or reviewing separately obtained history, performing a medically appropriate examination and/or evaluation and counseling and educating the patient/family/caregiver.Billing Level: 65751 Consult note * Arthur MYERS, [facility]: MODIFY, PERFORM, MODIFY Event Display: Consultation Note Authored Date: Patient: ??KRISTY BANDA ? Age:??79 Years?Sex:??Male?:??1945?? Indication for Consult from SNF, staff reports increasing fevr today up to 104, given 650mg tylenol at 1445; pt repeated I don't feel well ; wound to left foot noted Requesting physician: Dr. Andrea Consulting physician: Dr. Lepe Reason for consult: Atrial fibrillation with fluctuating heart rates Outpatient fiberglass laminator: Unknown, patient does not think he has a fiberglass laminator. History of Present Illness/Interval History 79-year-old male patient with PMHx of HTN, schizoaffective disorder and atrial fibrillation on Xarelto presenting due to altered mental status and fever. ?? HPI: Patient comes from [facility] after being found to be lethargic with decreased appetite and febrile with rectal temperature 104.1.?? Reports he has been declining and has history of recurrent UTIs. ?? In the ED, patient was found to be in A-fib with EKG on 04/06 at 4 PM showing a heart rate of 108 and EKG on 04/07 at 2 AM showing a heart rate of 38.?? Patient was also found to have urosepsis with positive UA and elevated lactic acid that is improving with IV fluids.?? Patient's metoprolol was held and his rivaroxaban was continued. ?? On my encounter, patient has??alert??but oriented x 0. ??He says the atrial fibrillation sounds familiar??and thinks that he is probably taking a blood thinner??but unable to obtain further reliable??past medical history from the patient.?? He denies having any shortness of breath, chest pain,??palpitations, lightheadedness, dizziness or loss of consciousness. ?? Reviewed patient's telemetry,??patient has been in atrial fibrillation??with his heart rates??mostly in the 50s to 70s??with a brief elevation to the low 100s??around??4-5 PM. ??Overnight,??patient'sheart rate??went down to the 30s with no evidence of complete heart block ?? Pertinent labs: Hemoglobin 10.6 around baseline creatinine 1.11 around baseline Pertinent home meds: Aspirin 81, atorvastatin 40, metoprolol ER 25 daily, rivaroxaban 20 mg daily. Pertinent inpatient meds: Aspirin, atorvastatin and rivaroxaban continued.?? Metoprolol held. ?? EKG 04/07/2024: A-fib with slow ventricular response HR 38.?? EKG on 04/06/2024 showed A-fib with rapid ventricular response HR 108. Review of Systems Constitutional, Eye, Skin, Head/Neck, ENMT, Respiratory, Cardiovascular, Gastrointestinal, Endocrine, Musculoskeletal, Neurologic, Psych reviewed and negative except as noted in HPI Physical Exam Vitals & Measurements T:??97.7?F?? HR:??65??(Peripheral)?? RR:??18?? BP:??116/74?? SpO2:??98%?? General:??No apparent distress, appears stated age. HEENT:??NCAT, EOMI, Sclera are anicteric. Moist oral mucosa. Neck:??Supple, No lymphadenopathy. No JVD noted. Cardiovascular:??Regular rate and rhythm, normal S1, S2. No S3 or S4 heard. No appreciable murmurs/gallops or rubs. No carotid bruits noted. Palpable peripheral upper and lower extremity pulses noted. Respiratory:??Clear to auscultation bilaterally without wheezes, rales or rhonchi. Abdomen:??Soft, nontender, non-distended, no abnormal BS, no HSM.?? Extremities:??No lower extremity edema noted.?? Neurology:??No focal neurological deficits.?? Intake and Output Yesterday's Intake Total?250?? Yesterday's Balance?250?? Clinical Range's Intake Total?250?? Clinical Range's Balance ?250?? Assessment/Plan 79-year-old male patient with PMHx of HTN, schizoaffective disorder and atrial fibrillation on Xarelto presenting due to altered mental status ?? Assessment and plan: Patient presents with altered mental status??and fear of found to have urosepsis.?? In terms of atrial fibrillation, appears to be in permanent atrial fibrillation??with significant??nocturnal??slow ventricular response??but at least based on patient's??history, this is without symptoms.?? Patient's heart rate most of the day??appears to be well-controlled around 70??with only 1 hour??of elevatedheart rates to the 110.?? Given patient's age,??we should pursue a lenient rate control strategy??aiming for his heart rate to be less than 110 most of the day.?? Recommend discontinuing??his metoprolol??given significant nocturnal bradycardia. ??Patient should continue anticoagulation. ??Rest of his care per primary team. ?? Recommendations: ??? Discontinue patient's home metoprolol. ?Continue home anticoagulation??with??rivaroxaban 20 mg daily ??? Cardiology to sign off. ?? Case discussed with attending, Dr. Lepe ?? Rosemary Gibson MD, PGY-5 Cardiovascular disease fellow Pager [phone], available on [facility] Allergies Depakote??(Ataxia) TEGretol Home Medications Acetaminophen: 650 mg = 2 tablet, By Mouth, Every 6 hours, PRN (as needed for fever/pain) Aspirin: 81 mg = 1 tablet, By Mouth, Daily Atorvastatin: 40 mg = 1 tablet, By Mouth, Daily at bedtime Bisacodyl: 10 mg = 1 supp, Rectally, Daily, PRN (as needed for constipation) Carbidopa-Levodopa: 1 tablet, By Mouth, 3 times a day, 8a, 1p, 8p Duloxetine: 20 mg = 1 capsule, By Mouth, Daily Ferrous Sulfate: 325 mg = 1 tablet, By Mouth, Daily Finasteride: 5 mg = 1 tablet, By Mouth, Daily Lactulose: 20 Gm = 30 mL, By Mouth, Daily Melatonin: 3 mg, By Mouth, Daily at bedtime, PRN (Insomnia) Metoprolol: 25 mg = 1 tablet, By Mouth, Daily Milk of Magnesia: 2.4 Gm = 30 mL, By Mouth, Daily, PRN (for constipation) Ocular Lubricant: 2 drops, Eyes, Both, Every 4 hours, PRN (dry eyes), Glycerin 0.2%; Hypomellose-0.2%; Polyethylene Glycol 1% Pantoprazole: 20 mg = 1 tablet, By Mouth, Daily Polyethylene Glycol 3350: 17 Gm = 1 pack/packet, By Mouth, Daily, PRN (Constipation) Risperidone: 1 mg = 1 tablet, By Mouth, Daily at bedtime rivaroxaban: 20 mg = 1 tablet, By Mouth, Daily at supper, with evening meal Senna: 17.2 mg = 2 tablet, By Mouth, 2 times a day Sodium Biphosphate-Sodium Phosphate: 1 each, Rectally, Daily, PRN (for constipation), Give if no BM8 hrs after Bisacodyl supp Tamsulosin: 0.4 mg = 1 capsule, By Mouth, Daily, 30 minutes after the same meal Hospital Medications Medications (25) Active SCHEDULED: (14) Aspirin 81 mg Chew Tablet (aspirin 81 mg oral tablet, chewable) ??81 mg, By Mouth, Daily Atorvastatin 40 mg Tablet (atorvastatin 40 mg oral tablet) ??40 mg, By Mouth, Daily at bedtime Carbidopa 25 mg / Levodopa 100 mg Tablet (carbidopa-levodopa 25 mg-100 mg oral tablet) ??1 tablet, By Mouth, 3 times a day Duloxetine 20 mg Capsule (DULoxetine Capsule) ??20 mg, By Mouth, Daily Ferrous Sulfate 325 mg EC Tablet (ferrous sulfate 325 mg oral enteric coated tablet) ??325 mg, By Mouth, Daily Finasteride 5 mg Tablet (finasteride 5 mg oral tablet) ??5 mg, By Mouth, Daily Lactulose 20 Gm/30mL Syrup (lactulose 10 gm/15 ml oral syrup) ??20 Gm 30 mL, By Mouth, Daily NaCl 0.9% Flush 3ml (NaCL 0.9% Flush) ??3 mL, IV Push, Every 8 hours Pantoprazole 20 mg EC Tablet (pantoprazole 20 mg oral delayed release tablet) ??20 mg, By Mouth, Daily Piperacillin/Tazobactam 3.375 Gm Inj (Zosyn Extended IVPB) ??3.375 Gm, IVPB, Every 8 hours Risperidone 1 mg Tablet (RisperDAL 1 mg oral tablet) ??1 mg, By Mouth, Daily at bedtime Rivaroxaban 20 mg Tablet (Xarelto) ??20 mg, By Mouth, Daily Tamsulosin 0.4 mg Capsule (tamsulosin 0.4 mg oral capsule) ??0.4 mg, By Mouth, Daily Vancomycin 1250 mg/250 mL NaCl 0.9% (Vancomycin IVPB) ??1,250 mg 250 mL, IVPB, Every 24 hours CONTINUOUS: (1) Lactated Ringers (1000 mL) Cont IV 1,000 mL (LR 1,000 mL) ??1,000 mL, IV Infusion, 75 mL/hr PRN: (10) Acetaminophen 325 mg Tablet (Acetaminophen Tablet) ??650 mg, By Mouth, Every 4 hours Atropine 0.1 mg/mL Inj (10 mL) (Atropine Inj) ??1 mg 10 mL, IV Push Slowly, Every 5 minutes Dextromethorphan-Guaifenesin 20 mg-200 mg/10 mL Liqu UD (Robitussin DM Liquid) ??10 mL, By Mouth, Every 4 hours Docusate Sodium 100 mg Capsule (Docusate Sodium Capsule) ??100 mg 1 capsule, By Mouth, 2 times a day Magnesium Hydroxide 8% Susp UD (Milk of Magnesia Liquid) ??30 mL, By Mouth, Daily Melatonin 3 mg Tablet (Melatonin Tablet) ??3 mg, By Mouth, Daily at bedtime NaCl 0.9% Flush 3ml (NaCL 0.9% Flush) ??3 mL, IV Push, Every 8 hours Polyethylene Glycol 17 Gm Powder (MiraLax Powder) ??17 Gm 1 pack/packet, By Mouth, Daily Senna Tablet ??8.6 mg 1 tablet, By Mouth, 2 times a day Simethicone 80 mg Chewable Tablet (Simethicone Tablet) ??80 mg, Chew, 3 times a day Lab Results Cardiology Labs WBC: 9.5 k/mm3 (04/07/24) RBC:??3.36 m/mm3??Low (04/07/24) Hgb:??10.6 Gm/dL??Low (04/07/24) Hct:??33.2 %??Low (04/07/24) MCV:??98.8 femtoliters??High (04/07/24) MCH: 31.5 pg (04/07/24) MCHC:??31.9 Gm/dL??Low (04/07/24) Platelet Count: 150 k/mm3 (04/07/24) RDW-SD:??56.4 femtoliters??High (04/07/24) Nucleated RBC (Automated): 0 #/100 WBC'S (04/07/24) Abs. Neut:??7.2 k/mm3??High (04/06/24) Abs. Lymph:??0.3 k/mm3??Low (04/06/24) Abs. [place]: 0.8 k/mm3 (04/06/24) Abs. Eo: 0 k/mm3 (04/06/24) Abs. Baso: 0 k/mm3 (04/06/24) Neut %:??85.5 %??High (04/06/24) [place] %: 9.5 % (04/06/24) Eos %: 0.5 % (04/06/24) Baso %: 0.2 % (04/06/24) Imm Gran: 1.1 % (04/06/24) Abs. Imm Gran: 0.1 k/mm3 (04/06/24) Sodium: 145 mmol/L (04/07/24) Potassium: 3.9 mmol/L (04/07/24) Chloride:??113 mmol/L??High (04/07/24) Bicarbonate Level:??21 mmol/L??Low (04/07/24) Glucose Level:??116 mg/dL??High (04/07/24) BUN: 16 mg/dL (04/07/24) Creatinine-Blood: 1.11 mg/dL (04/07/24) Calcium:??8.3 mg/dL??Low (04/07/24) Protein, Total:??5.8 Gm/dL??Low (04/07/24) Albumin:??3 Gm/dL??Low (04/07/24) Alkaline Phosphatase: 62 units/L (04/07/24) AST (SGOT): 15 units/L (04/07/24) ALT (SGPT): 8 units/L (04/07/24) Bilirubin, Total: 0.6 mg/dL (04/07/24) Diagnostic Impression ECG ECG 12-Lead * Preliminary * ?? 02:15:08 Ventricular Rate: 38 BPM QRS Duration: 92 ms Q-T Interval: 502 ms QTC Calculation(Bazett): 399 ms R [place]: 60 degrees T Independence: 61 degrees Atrial fibrillation with slow ventricular response with premature ventricular or aberrantly conducted complexes Abnormal ECG When compared with ECG of 06-Apr-2024 16:09, MANUAL COMPARISON REQUIRED DATA IS UNCONFIRMED ?? [place]: , ?? ECG 12-Lead * Preliminary * ?? 02:15:08 Please click on pdf link to open report Problem List/Past Medical History Ongoing Anxiety Atrial fibrillation Bipolar 1 disorder Chronic anemia Chronic schizoaffective disorder Dementia Depression GERD (gastroesophageal reflux disease) History of BPH History of recurrent UTIs HLD (hyperlipidemia) HTN (hypertension) Parkinson's disease Vitamin D deficiency Xerosis of skin Procedure/Surgical History EGD - Esophagogastroduodenoscopy: 09/02/20 Social History Alcohol Use: Never. Tobacco Use: Former smoker, quit more than 30 days ago. Family History No family history recorded. * Natalee Lepe MD: PERFORM Event Display: Consultation Note Authored Date: Attending Attestation:??I have seen and evaluated this patient. ??I have discussed the case and itsmanagement with the fellow and agree with the findings and plan as documented in the fellow???s note. OK to DC BB and follow rates. Please call with additional questions. Note * Loulou Narayanan RN: PERFORM Event Display: Discharge/Transfer Note Hospital Authored Date: [id number] Nursing Discharge Note Entered On: 04/09/2024 18:47 EST Performed On: 04/09/2024 18:47 EST by Loulou Narayanan RN Nursing Discharge Note 2 Discharge Time : 04/09/2024 18:45 EST Discharge Level of Care at Discharge : group home facility Discharge Nursing Homes/Rehab Facilities : [facility] Patient Left Unit Via : Ambulance Patient Accompanied Off Unit with : Ambulance/[facility] Van Personnel Handover Given to Transport Personnel : Yes DC Instructions Provided & Signed by Pt : Yes Patient Understands D/C Instructions : Yes Patient Instructions Discharge Signed : Yes Did Pt have Specialty Bed or Wound Vac : No Loulou Narayanan RN - 04/09/2024 18:47 EST * Alissa Redding DO: PERFORM Event Display: Discharge/Transfer Note Hospital Authored Date: [id number] Patient: ??KRISTY BANDA ? Age:??79 Years?Sex:??Male?:??1945?? Patient Information Discharge Location: Primary Care Physician: Carl Gonsalves MD Admit Date/Time: 04/06/2024 17:56 Discharge Disposition Discharge Disposition: Detention Facility/Rehab Discharge Diagnosis Sepsis - possible ([id number]) Sepsis (A41.9) Urinary tract infection (N39.0) Fever (R50.9) Tachycardia (R00.0) Acute urinary retention (R33.8) BPH (benign prostatic hyperplasia) (N40.0) Chronic GERD (K21.9) Anemia (D64.9) Bipolar disorder (F31.9) Dementia (F03.90) Parkinson disease (G20.A1) Atrial fibrillation with slow ventricular response (I48.91) Hypertension (I10) Hypoalbuminemia (E88.09) _ Discharge Medications Acetaminophen (acetaminophen 325 mg oral tablet)?650?Milligram?2?tablet?By Mouth?Every 6 hours?as needed?as needed for fever/pain Aspirin (aspirin 81 mg oral tablet, chewable)?81?Milligram?1?tablet?By Mouth?Daily Atorvastatin (atorvastatin 40 mg oral tablet)?1?tab(s)?40?Milligram?By Mouth?Daily at bedtime Bisacodyl (Dulcolax 10 mg rectal suppository)?1?suppository(ies)?10?Milligram?Rectall y?Daily?as needed?as needed for constipation Carbidopa-Levodopa (carbidopa-levodopa 25 mg-100 mg oral tablet)?1?tab(s)?By Mouth?3 times a day?8a, 1p, 8p Duloxetine (duloxetine 20 mg oral enteric coated capsule)?1?capsule?20?Milligram?By Mouth?Daily Ferrous Sulfate (ferrous sulfate 325 mg oral enteric coated tablet)?325?Milligram?1?tablet?By Mouth?Daily Finasteride (finasteride 5 mg oral tablet)?5?Milligram?By Mouth?Daily?1?tab(s) Lactulose (lactulose 10 gm/15 ml oral syrup)?30?Milliliter?20?gram?By Mouth?Daily Melatonin (melatonin 3 mg oral tablet)?3?Milligram?By Mouth?Daily at bedtime?as needed?Insomnia Milk of Magnesia (Milk of Magnesia 8% oral suspension)?30?Milliliter?2.4?gram?By Mouth?Daily?as needed?for constipation Ocular Lubricant (Artificial Tears preserved solution)?2?Drops?Eyes, Both?4 times a day?as needed?dry eyes?0.2-0.2-1%?Every 4 hours?Glycerin 0.2%; Hypomellose-0.2%; Polyethylene Glycol 1% Pantoprazole (pantoprazole 20 mg oral delayed release tablet)?1?tab(s)?20?Milligram?By Mouth?Daily Polyethylene Glycol 3350 (MiraLax Powder)?1?pack/packet?17?gram?By Mouth?Daily?as needed?Constipation Risperidone (RisperDAL 1 mg oral tablet)?1?Milligram?1?tablet?By Mouth?Daily at bedtime rivaroxaban (Xarelto 20 mg oral tablet)?1?tab(s)?20?Milligram?By Mouth?Daily in PM?Daily at supper?with evening meal Senna (Senna 8.6 mg oral tablet)?17.2?Milligram?2?tab(s)?By Mouth?2 times a day Sodium Biphosphate-Sodium Phosphate (Fleet Enema 19 gm-7 gm rectal enema)?1?Each?Rectally?Once?as needed?for constipation?Daily?Give if no BM 8 hrs after Bisacodyl supp Sulfamethoxazole/Trimethoprim (Bactrim DS 800 mg-160 mg oral tablet)?1?tab(s)?By Mouth?2 times a day?for 7?Days Tamsulosin (tamsulosin 0.4 mg oral capsule)?0.4?Milligram?1?capsule?By Mouth?Daily?30 minutes after the same meal ? Medications Started Bactrim DS BID for 7d Medications Discontinued metoprolol Doses Changed none Allergies Allergies ?(Active and Proposed Allergies Only) Depakote? (Severity: Unknown severity, Onset: Unknown) ?Reactions: Ataxia TEGretol? (Severity: Unknown severity, Onset: Unknown) ? PCP Follow-Up/Heads-Up Presented with??altered mental status, found to have??E. coli bacteremia secondary to E. coli UTI, discharged with Bactrim??DS??twice daily for 7 days Evaluated cardiology for A-fib with variable heart rate, recommending discontinuation of metoprolol Future Appointments Monday 10:30 AM EST ?? Where: [facility] [address] [address]- Status: Pending Hospital Course 79 years old male with past medical history of hypertension, A-fib (on Xarelto), GERD, BPH, recurrent UTI, Parkinson disease, bipolar disorder, dementia who BIBEMS from SNF due to status, likely secondary to infectious encephalopathy in the setting of E. coli bacteremia secondary to UTI. Initially treated with IV antibiotics, sensitivities showing susceptible to Bactrim. Also was evaluated by cardiology due to Afib with fluctating rates, and cardiology recommended discontinuation of home metoprolol. On day of discharge patient is HDS and will discharged to SNF. ?? Sepsis (A41.9) ? Caused by??E.Coli Urinary tract infection (N39.0), E.Coli bacteremia ? Patient presents with confusion, decreased urine output, rectal temperature 104.1, initially tachycardic, UA is remarkable for nitrate positive, 3+ leukocyte, WBC 150, heavy bacteria, 110 RBCs. Also initially hypotensive, lactate elevated to 3.2 > 1.5 Presented with altered mental status, and decreased urine output and febrile, and tachycardic meeting SIRS criteria, UA remarkable for nitrites, leukocytes and WBCs with hyper bacteriuria Blood cultures positive for E. coli bacteremia, urine culture positive for E.coli, Susceptible to bactrim, thus will discharge on bactrim ?? Plan: -Bactrim DS twice a day for 7 days (last dose on 04/16) ?? Atrial fibrillation with slow ventricular response (I48.91) ? Associated with??Hypertension (I10) Patient with heart rate fluctuating between 35 to 110s Likely in the setting of sepsis, cardiology consulted for tachy-luca and recommended to dc metoprolol ?? Plan: - discontinued home metoprolol per cardiology recommendation - continue aspirin and statin, along with home xarelto ?? Hypoalbuminemia (E88.09): Albumin is 3.2. Parkinson disease (G20.A1)/ Dementia (F03.90):High risk for delirium. Continue home carbidopa-levodopa and bowel regimen Bipolar disorder (F31.9):??Continue home duloxetine and risperidone Anemia (D64.9): Hemoglobin 10.7 (baseline 12).??No signs of bleeding. Continue with ferrous sulfate. PCP to follow up Chronic GERD (K21.9): Continue with home pantoprazole Acute urinary retention (R33.8)/BPH (benign prostatic hyperplasia) (N40.0):??Continue home tamsulosin and finasteride ? Objective ? Vital Signs?? Temperature: 97.3 DegF (04/09/24 11:00:00) Temperature Route: Oral (04/09/24 11:00:00) Pulse Rate: 84 bpm (04/09/24 11:00:00) Respiratory Rate: 18 br/min (04/09/24 11:00:00) Systolic Blood Pressure: 136 mm Hg (04/09/24 11:00:00) Diastolic Blood Pressure: 83 mm Hg (04/09/24 11:00:00) Blood pressure sites: Arm, right (04/09/24 11:00:00) Pulse Pressure: 64 mm Hg (04/09/24 03:00:00) Oxygen Saturation: 100 % (04/09/24 11:00:00) Mode of Delivery (Oxygen): Room air (04/09/24 11:00:00) Early Warning Score: 2 (04/09/24 11:41:17) ? . Physical Exam Constitutional: Alert, in no distress. Mental Status: Oriented to person, place and not time. Respiratory: Clear to auscultation. No wheezing, rales or rhonchi. Cardiovascular: S1 S2 regular. No murmurs, rubs or gallops. Gastrointestinal: Abdomen soft, non-tender, non-distended. Normal bowel sounds. Neurologic: No focal neurological deficits.?? Musculoskeletal: No gross deformities.?? Consultants cardiology Patient Education Titles [employer] Patient Education - Urinary Tract Infections in Men?? [employer] Patient Education - Sepsis?? Follow-Up Appointments Added Follow Up ?Time Frame ?Comments Major MYERS, Carl?Follow up on UTI/Bacteremia?? Patient Instructions You were admitted for confusion and found to have an infection ?? Medications started: Bactrim??twice a day for 7??days (last dose on 04/16) Medications stopped: Metoprolol Medications changed: none Continue the rest of your home medications Please follow up with your PCP for management of your chronic medical conditions Please maintain adequate hydration ?? If symptoms worsen or new symptoms develop, please seek medical attention. If you do not have a PCP, please call the [facility] PCP hotline [phone]. Results Discharge Labs BACTERIOLOGY Urine Culture Results Final report (Abnormal)?? 04/06/2024 16:40 Blood Culture Results Preliminary report ()?? 04/08/2024 08:30 Blood Culture Specimen Source BLOOD ()?? 04/08/2024 08:30 Blood Culture Isolate 1 Comment ()?? 04/08/2024 08:30 Blood Cult Antimicrobial Susceptibility Comment ()?? 04/06/2024 16:10 Blood Cult 2 Results Preliminary report ()?? 04/08/2024 08:30 Reflex to Rapid ID, SHWETHA, Culture 2 Comment ()?? 04/06/2024 16:14 Blood Culture 2 Specimen Source BLOOD ()?? 04/08/2024 08:30 Blood Culture 2 Isolate 1 Comment ()?? 04/08/2024 08:30 A calcoaceticus-baumannii comp,Culture 2 Not Detected ()?? 04/06/2024 16:14 Bacteroides fragilis, Culture 2 Not Detected ()?? 04/06/2024 16:14 Enterobacterales, Culture 2 DETECTED (Abnormal)?? 04/06/2024 16:14 Enterobacter cloacae complex, Culture 2 Not Detected ()?? 04/06/2024 16:14 Escherichia coli, Culture 2 DETECTED (Abnormal)?? 04/06/2024 16:14 Klebsiella aerogenes, Culture 2 Not Detected ()?? 04/06/2024 16:14 Klebsiella oxytoca, Culture 2 Not Detected ()?? 04/06/2024 16:14 Klebsiella pneumoniae group, Culture 2 Not Detected ()?? 04/06/2024 16:14 Proteus spp., Culture 2 Not Detected ()?? 04/06/2024 16:14 Salmonella spp., Culture 2 Not Detected ()?? 04/06/2024 16:14 Serratia marcescens, Culture 2 Not Detected ()?? 04/06/2024 16:14 Haemophilus influenzae, Culture 2 Not Detected ()?? 04/06/2024 16:14 Neisseria meningitidis, Culture 2 Not Detected ()?? 04/06/2024 16:14 Pseudomonas aeruginosa, Culture 2 Not Detected ()?? 04/06/2024 16:14 Stenotrophomonas maltophilia, Culture 2 Not Detected ()?? 04/06/2024 16:14 Enterococcus faecalis, Culture 2 Not Detected ()?? 04/06/2024 16:14 Enterococcus faecium, Culture 2 Not Detected ()?? 04/06/2024 16:14 Listeria monocytogenes, Culture 2 Not Detected ()?? 04/06/2024 16:14 Staphylococcus spp., Culture 2 Not Detected ()?? 04/06/2024 16:14 Staphylococcus aureus, Culture 2 Not Detected ()?? 04/06/2024 16:14 Staphylococcus epidermidis, Culture 2 Not Detected ()?? 04/06/2024 16:14 Staphylococcus lugdunensis, Culture 2 Not Detected ()?? 04/06/2024 16:14 Streptococcus spp., Culture 2 Not Detected ()?? 04/06/2024 16:14 Streptococcus agalactiae, Culture 2 Not Detected ()?? 04/06/2024 16:14 Streptococcus pneumoniae, Culture 2 Not Detected ()?? 04/06/2024 16:14 Streptococcus pyogenes, Culture 2 Not Detected ()?? 04/06/2024 16:14 Ni albicans, Culture 2 Not Detected ()?? 04/06/2024 16:14 Ni auris, Culture 2 Not Detected ()?? 04/06/2024 16:14 Ni glabrata, Culture 2 Not Detected ()?? 04/06/2024 16:14 Ni krusei, Culture 2 Not Detected ()?? 04/06/2024 16:14 Ni parapsilosis, Culture 2 Not Detected ()?? 04/06/2024 16:14 Ni tropicalis, Culture 2 Not Detected ()?? 04/06/2024 16:14 Cryptococcus neoformans/gattii,Culture 2 Not Detected ()?? 04/06/2024 16:14 IMP (Carbapenemases), Culture 2 Not Detected ()?? 04/06/2024 16:14 KPC (Carbapenemases), Culture 2 Not Detected ()?? 04/06/2024 16:14 OXA-48-like (Carbapenemases), Culture 2 Not Detected ()?? 04/06/2024 16:14 NDM (Carbapenemases), Culture 2 Not Detected ()?? 04/06/2024 16:14 VIM (Carbapenemases), Culture 2 Not Detected ()?? 04/06/2024 16:14 mcr-1 (Colistin Resistance), Culture 2 Not Detected ()?? 04/06/2024 16:14 CTX-M (ESBL), Culture 2 Not Detected ()?? 04/06/2024 16:14 mecA/C(Methicillin Resistance),Culture 2 Not applicable ()?? 04/06/2024 16:14 mecA/C and MREJ (MRSA), Culture 2 Not applicable ()?? 04/06/2024 16:14 Laura/B (Vancomycin Resistance),Culture 2 Not applicable ()?? 04/06/2024 16:14 Urine Culture Specimen Source URINE ()?? 04/06/2024 16:40 Urine Culture Isolate 1 Escherichia coli (Abnormal)?? 04/06/2024 16:40 Urine Cult Antimicrobial Susceptibility Comment ()?? 04/06/2024 16:40 ? BLOOD COUNT & DIFF WBC 5.3 k/mm3 ()?? 04/09/2024 03:52 RBC 3.32 m/mm3 (Low)?? 04/09/2024 03:52 Hgb 10.5 Gm/dL (Low)?? 04/09/2024 03:52 Hct 32.7 % (Low)?? 04/09/2024 03:52 MCV 98.5 femtoliters (High)?? 04/09/2024 03:52 MCH 31.6 pg ()?? 04/09/2024 03:52 MCHC 32.1 Gm/dL (Low)?? 04/09/2024 03:52 Platelet Count 172 k/mm3 ()?? 04/09/2024 03:52 RDW-SD 54.6 femtoliters (High)?? 04/09/2024 03:52 MPV 9.4 femtoliters ()?? 04/09/2024 03:52 Nucleated RBC (Automated) 0.0 #/100 WBC'S ()?? 04/09/2024 03:52 Abs. NRBC 0.0 k/mm3 ()?? 04/09/2024 03:52 Abs. Neut 7.2 k/mm3 (High)?? 04/06/2024 16:14 Abs. Lymph 0.3 k/mm3 (Low)?? 04/06/2024 16:14 Abs. [place] 0.8 k/mm3 ()?? 04/06/2024 16:14 Abs. Eo 0.0 k/mm3 ()?? 04/06/2024 16:14 Abs. Baso 0.0 k/mm3 ()?? 04/06/2024 16:14 Neut % 85.5 % (High)?? 04/06/2024 16:14 Lymph % 3.2 % (Low)?? 04/06/2024 16:14 [place] % 9.5 % ()?? 04/06/2024 16:14 Eos % 0.5 % ()?? 04/06/2024 16:14 Baso % 0.2 % ()?? 04/06/2024 16:14 Imm Gran 1.1 % ()?? 04/06/2024 16:14 Abs. Imm Gran 0.1 k/mm3 ()?? 04/06/2024 16:14 ?? CHEM GENERAL Sodium 141 mmol/L ()?? 04/09/2024 03:54 Potassium 3.5 mmol/L (Low)?? 04/09/2024 03:54 Chloride 107 mmol/L ()?? 04/09/2024 03:54 Bicarbonate Level 24 mmol/L ()?? 04/09/2024 03:54 Anion Gap 10 ()?? 04/09/2024 03:54 Glucose Level 123 mg/dL (High)?? 04/09/2024 03:54 Glucose, POC 117 mg/dL (High)?? 04/07/2024 21:22 BUN 11 mg/dL ()?? 04/09/2024 03:54 Creatinine-Blood 1.03 mg/dL ()?? 04/09/2024 03:54 Estimated GFR Creatinine 73 ML/MIN/1.73 M2 ()?? 04/09/2024 03:54 Calcium 9.0 mg/dL ()?? 04/09/2024 03:54 Phosphorus 2.8 mg/dL ()?? 04/09/2024 03:54 Magnesium 1.9 mg/dL ()?? 04/09/2024 03:54 Protein, Total 5.8 Gm/dL (Low)?? 04/07/2024 05:20 Albumin 3.0 Gm/dL (Low)?? 04/07/2024 05:20 AG Ratio 1.1 ()?? 04/07/2024 05:20 Alkaline Phosphatase 62 units/L ()?? 04/07/2024 05:20 Lipase 20 units/L ()?? 04/06/2024 16:14 AST (SGOT) 15 units/L ()?? 04/07/2024 05:20 ALT (SGPT) 8 units/L ()?? 04/07/2024 05:20 Bilirubin, Total 0.6 mg/dL ()?? 04/07/2024 05:20 Vitamin B12 Level 756 pg/mL ()?? 04/08/2024 08:30 Lactate 1.5 mmol/L ()?? 04/06/2024 19:32 Iron Level 21 mcg/dL (Low)?? 04/08/2024 08:30 Iron Binding Capacity, Unsaturated 237 mcg/dL ()?? 04/08/2024 08:30 Iron Binding Capacity, Estimated Total 258 mcg/dL ()?? 04/08/2024 08:30 % Iron Saturation 8 % (Low)?? 04/08/2024 08:30 ? UA/URINALYSIS Appear/Color, Urine YELLOW ()?? 04/06/2024 16:40 Specific [place], Urine 1.009 ()?? 04/06/2024 16:40 pH, Urine 6.0 ()?? 04/06/2024 16:40 Albumin, Urine TRACE (Abnormal)?? 04/06/2024 16:40 Glucose, Urine NEGATIVE ()?? 04/06/2024 16:40 Ketones, Urine NEGATIVE ()?? 04/06/2024 16:40 Bilirubin, Urine NEGATIVE ()?? 04/06/2024 16:40 Hemoglobin, Urine 3+ (Abnormal)?? 04/06/2024 16:40 Nitrite, Urine POSITIVE (Abnormal)?? 04/06/2024 16:40 Leukocyte, Urine 3+ (Abnormal)?? 04/06/2024 16:40 Urobilinogen NORMAL mg/dL ()?? 04/06/2024 16:40 WBC's, Urine 150 /HPF (High)?? 04/06/2024 16:40 RBC's, Urine 110 /HPF (High)?? 04/06/2024 16:40 Bacteria HEAVY HPF (Abnormal)?? 04/06/2024 16:40 Squamous Epith 1 /HPF ()?? 04/06/2024 16:40 Hold Urine Culture Testing available 48 hours from time of collection. ()?? 04/06/2024 16:40 ? Microbiology ?? Blood Culture?? Completed?? Source: Blood Body Site: ?? Collected Dt/Tm: 04/08/2024 08:30 Last Updated Dt/Tm: 04/09/2024 09:06 ?? Blood Culture #2?? Completed?? Source: Blood Body Site: ?? Collected Dt/Tm: 04/08/2024 08:30 Last Updated Dt/Tm: 04/09/2024 09:06 ?? Blood Culture Result?? Completed?? Source: Blood Body Site: ?? Collected Dt/Tm: 04/08/2024 08:30 Last Updated Dt/Tm: 04/09/2024 09:06 ?? Blood Culture 2 Results?? Completed?? Source: Blood Body Site: ?? Collected Dt/Tm: 04/08/2024 08:30 Last Updated Dt/Tm: 04/09/2024 09:06 ?? Blood Culture?? Completed?? Source: Blood Body Site: ?? Collected Dt/Tm: 04/06/2024 16:14 Last Updated Dt/Tm: 04/07/2024 10:06 ?? Blood Culture #2?? Completed?? Source: Blood Body Site: ?? Collected Dt/Tm: 04/06/2024 16:14 Last Updated Dt/Tm: 04/07/2024 10:06 ?? Blood Culture 2 Results?? Completed?? Source: Blood Body Site: ?? Collected Dt/Tm: 04/06/2024 16:14 Last Updated Dt/Tm: 04/07/2024 10:06 ?? Blood Culture 2 Rapid ID, SHWETHA?? Completed?? Source: Blood Body Site: ?? Collected Dt/Tm: 04/06/2024 16:14 Last Updated Dt/Tm: 04/07/2024 13:11 ?? Blood Culture Result?? Completed?? Source: Blood Body Site: ?? Collected Dt/Tm: 04/06/2024 16:10 Last Updated Dt/Tm: 04/07/2024 10:06 ?Patient??discussed with attending physician ?? Alissa Redding, DO Internal Medicine, PGY-2 Pager [phone] 30??minutes spent on discharge * Ruperto Zayas MD: PERFORM Event Display: Discharge/Transfer Note Hospital Authored Date: Diagnoses: Sepsis???fever, tachycardia ESBL E. coli bacteremia E. coli urinary tract infection CKD 2 Permanent atrial fibrillation Secondary hypercoagulable state Schizoaffective disorder Parkinson's disease ?? PCP to FU repeat BCX ?? I evaluated the patient on date of service 04/09/2024. I saw and evaluated this patient with Dr. Redding and agree with the resident???s findings and plan of care as documented by the resident or edited by me. I spent 35 minutes on the following: preparing to see the patient (eg, review of tests), obtaining and/or reviewing separately obtained history, performing a medically appropriate examination and/or evaluation and counseling and educating the patient/family/caregiver. * Francesco Fisher RN: PERFORM, SIGN, VERIFY Event Display: Case Management Discharge Plan Authored Date: [id number] Patient: KRISTY BANDA Age: 79 years Sex: Male : 1945 Associated Diagnoses: None Author: Francesco Fisher RN Discharge Plan Case Management Discharge Plan : Case Management Discharge Plan Data 04/09/2024 14:28 EST Discharge Level of Care at Discharge group home facility Discharge Nursing Homes/Rehab Facilities [facility] Discharge Transportation Arranged [facility] [id number] [facility] Discharge Arranged Transport Date/Time 04/09/2024 16:00 Mode of Transportation Arranged Ambulance Name of Agency #1 [facility] Service Categories #1 Occupational Therapy, Physical Therapy, Detention Service Comments #1 Ambulance arranged for 4pm * Lady TRAVIS, Loulou: PERFORM Event Display: Patient Education/Instruction Authored Date: [id number] Inpatient Adult Discharge Instructions. [address] [address] Name: KRISTY BANDA : 1945?? Visit: 04/06/2024 17:56?? Current Date: 04/09/2024 14:40 ?? Account: [id number]?? Inpatient Adult Discharge Instructions We would like to thank you for allowing us to assist you with your healthcare needs. The following includes patient education materials and information regarding your injury/illness. Our entire staffstrives to provide an excellent experience for our patients and their families. PLEASE ENSURE YOU FOLLOW-UP PER THE INSTRUCTIONS BELOW! ?? YOUR OPINION IS IMPORTANT TO US! Please complete the survey you may receive by mail or email. Your feedback will be used to make improvements to the healthcare experiences of our patients and their families. Surveys are administered by [employer] ?? If further treatment with your primary care physician or another doctor is recommended, it is important for you to keep the appointment. Call your primary care physician or return to the Emergency Department immediately if your condition worsens, fails to improve, or new symptoms develop. If you need to find a doctor, you can call [facility] [employer] [facility] for a referral at [phone] or toll free at [phone]) or log in to [email or web address].. ?? [facility], in keeping with [facility] guidance, no longer requires face masks for staff, patientsor visitors in most situations. Similiar to time spent indoors at other locations, there is the chance that you were exposed to repiratory viruses during your time with us (such as flu or COVID-19). If you develop symptoms concerning for a viral respiratory infection, please seek testing (and treatment if indicated) from your medical provider or home test kit. ?? You can view and manage your care through the patient portal or by using a health care sam of your choosing. [employer] is a website that allows you to securely view your medical information including your hospital discharge summary, office visit summaries, medications and follow-up visits. You can also request appointments, renew medications, and request access to your medical information using a health care sam of your choosing, or just ask a question. You can enroll at [email or web address] or register during your next office visit. You have been discharged from [facility], Patient Care Unit: W4??. If you have any questions regarding these instructions, including results of studies pending, afteryou leave, please call us and we will be happy to assist you 07/11. [facility] Your Care Team Attending Physician Ruperto Zayas MD?? Consulting Providers Ruperto Zayas MD?? Discharging Providers Alissa Redding DO Reason for Your Visit from SNF, staff reports increasing fevr today up to 104, given 650mg tylenol at 1445; pt repeated I don't feel well ; wound to left foot noted?? Your Diagnosis Acute urinary retention Anemia Atrial fibrillation with slow ventricular response Bipolar disorder BPH (benign prostatic hyperplasia) Chronic GERD Dementia Hypertension Hypoalbuminemia Parkinson disease Sepsis - possible Tests Performed Below is a partial list of the tests performed during your hospitalization. You may have had other tests and procedures not included in this list. Please discuss all test results with your provider. Blood Culture Blood Culture #2 Blood Culture 2 Rapid ID, SHWETHA Blood Culture 2 Results Blood Culture Result CBC w/ Differential Comprehensive Metabolic Panel GLUCOSE POC IRON & TIBC Lactate Level Lipase Mg Level Urinalysis w/hold for Urine Culture Urine Culture Result Urine Culture, Routine VITAMIN B12 XR Chest Portable Add On Lab Order?? Basic Metabolic Panel?? Blood Culture?? Blood Culture #2?? Blood Culture 2 Rapid ID, SHWETHA?? Blood Culture 2 Results?? Blood Culture Result?? CBC?? CBC w/ Differential?? Comprehensive Metabolic Panel?? Glucose POC?? Iron + Iron Binding Capacity (IRON & TIBC)?? Lactic Acid Level (Lactate Level)?? Lipase?? Magnesium Level?? Phosphorus Level?? Urinalysis w/hold for Urine Culture?? Urine Culture (Urine Culture, Routine)?? Urine Culture Result?? Vitamin B12 Level (VITAMIN B12)?? Chest Portable (XR Chest Portable)?? Primary Care Provider Carl Gonsalves MD? Advance Directive Health Care Proxy on File Yes - Health Care Proxy Yes - MOLST Discharge Vitals Temperature: 97.3 DegF Pulse Rate: 84 bpm Respiratory Rate: 18 br/min Systolic Blood Pressure: 136 mm Hg Diastolic Blood Pressure: 83 mm Hg Oxygen Saturation: 100 % Studies Pending All studies ordered during this hospital stay have been completed unless listed below. Please discuss all pending results with your provider listed above in these instructions. ?? Add On Lab Order?? Basic Metabolic Panel?? CBC?? Magnesium Level?? Phosphorus Level?? What to do next Instructions From Your Doctor You were admitted for confusion and found to have an infection ?? Medications started: Bactrim??twice a day for 7??days (last dose on 04/16) Medications stopped: Metoprolol Medications changed: none Continue the rest of your home medications Please follow up with your PCP for management of your chronic medical conditions Please maintain adequate hydration ?? If symptoms worsen or new symptoms develop, please seek medical attention. If you do not have a PCP, please call the [facility] PCP hotline [phone]. ?? Orders? 04/09/24 14:26:00 EST?? Prescriptions??, ??going to rehab will get his antibiotics there, ??04/09/24 14:26:00 EST?? Scheduled Follow-Up Appointments Monday 10:30 AM EST ?? Where: [facility] [address] [place] [address]- Status: Pending You Need to Schedule the Following Appointments Follow Up with??Carl Gonsalves MD Why: Follow up on UTI/Bacteremia?? Where: [address] [facility] [place] [address]- Discharge Medications KRISTY BANDA :1945 Visit Date:04/06/2024 Medications: Please continue your medications until treatment is completed or stopped by your provider. Medications not listed below should be discontinued. Discuss any questions related to medications with your provider. What How Much When Instructions Next Dose New Sulfamethoxazole/ Trimethoprim (Bactrim DS 800 mg-160mg oral tablet) 1 tab(s) Oral Twice a day Duration: 7 Days Pickup at [facility] 3 Monday Unchanged Acetaminophen (acetaminophen 325 mg oral tablet) 2 tab(s) Oral Every 6 hours as needed for as needed for pain or fever > 100 as needed for as needed for pain or fever Unchanged Aspirin (aspirin 81 mg oral tablet, chewable) 1 tab(s) Oral Daily Monday Unchanged Atorvastatin (atorvastatin 40 mg oral tablet) 1 tab(s) Oral Daily at Bedtime Monday Unchanged Bisacodyl (Dulcolax 10 mg rectal suppository) 1 suppository(ies) Per rectum Daily as needed for as needed for constipation as needed for constipation Unchanged Carbidopa-Levodopa (carbidopa-levodopa 25 mg-100 mg oral tablet) 1 tab(s) Oral 3 times a day Monday Unchanged Duloxetine (duloxetine 20 mg oral enteric coated capsule) 1 capsule Oral Daily Monday Unchanged Ferrous Sulfate (ferrous sulfate 325 mg oral enteric coated tablet) 1 tab(s) Oral Daily Monday Unchanged Finasteride (finasteride 5 mg oral tablet) 1 tab(s) Oral Daily Monday Unchanged Lactulose (lactulose 10 gm/ 15 ml oral syrup) 30 Milliliter Oral Daily Monday Unchanged Melatonin (melatonin 3 mg oral tablet) 3 Milligram Oral Daily at Bedtime as needed for Insomnia as needed for Insomnia Unchanged Milk of Magnesia (Milk of Magnesia 8% oral suspension) 30 Milliliter Oral Daily as needed for for constipation as needed for for constipation Unchanged Ocular Lubricant (Artificial Tears preserved solution) 2 Drops Both eyes Every 4 hours as needed for dry eyes Glycerin 0.2%; Hypomellose-0.2%; Polyethylene Glycol 1% ?? as needed for dry eyes Unchanged Pantoprazole (pantoprazole 20 mg oral delayed release tablet) 1 tab(s) Oral Daily Monday Unchanged Polyethylene Glycol 3350 (MiraLax Powder) 17 gram Oral Daily as needed for Constipation as needed for Constipation Unchanged Risperidone (RisperDAL 1 mg oral tablet) 1 tab(s) Oral Daily at Bedtime Monday Unchanged rivaroxaban (Xarelto 20 mg oral tablet) 1 tab(s) Oral Daily with evening meal ?? Monday Unchanged Senna (Senna 8.6 mg oral tablet) 2 tab(s) Oral Twice a day Monday evening Unchanged Sodium Biphosphate-Sodium Phosphate (Fleet Enema 19 gm-7 gm rectal enema) 1 Each Per rectum Daily as needed for for constipation Give if no BM 8 hrs after Bisacodyl supp ?? as needed for for constipation Unchanged Tamsulosin (tamsulosin 0.4 mg oral capsule) 1 capsule Oral Daily Monday Pharmacy Information [facility]: [address] [place], [place] [id number] [phone] ?? What How Much When Comments Stop Taking Ciprofloxacin (Cipro 500 mg oral tablet) 1 tab(s) Oral Twice a day Duration: 3 Days start in PM through in AM ?? Stop Taking Gabapentin (gabapentin 400 mg oral capsule) 1 capsule Oral 3 times a day Stop Taking Metoprolol (Metoprolol Succinate ER 25 mg oral tablet, extended release) 1 tab(s) Oral Daily Prescription Given During Visit Sulfamethoxazole/Trimethoprim (Bactrim DS 800 mg-160 mg oral tablet) - 1 tablet, By Mouth, 2 times a day, # 14 tablet, 0 Refills, [facility], [address] [place] [phone]?? Laboratory Results Below is a partial list of the most recent Laboratory test results done prior to this discharge. You may have had other tests and procedures not included in this list. Please discuss all test resultswith your provider. Blood Culture (04/08/2024) ???Blood Culture Results - Preliminary report???Blood Culture Specimen Source - BLOOD Blood Culture #2 (04/08/2024) ???Blood Cult 2 Results - Preliminary report???Blood Culture 2 Specimen Source - BLOOD Blood Culture 2 Rapid ID, SHWETHA (04/06/2024) ???A calcoaceticus-baumannii comp,Culture 2 - Not Detected???Bacteroides fragilis, Culture 2 - Not Detected???Enterobacterales, Culture 2 - DETECTED???Enterobacter cloacae complex, Culture 2 - Not Detected???Escherichia coli, Culture 2 - DETECTED???Klebsiella aerogenes, Culture 2 - Not Detected???Kl ebsiella oxytoca, Culture 2 - Not Detected???Klebsiella pneumoniae group, Culture 2 - Not Detected???Proteus spp., Culture 2 - Not Detected???Salmonella spp., Culture 2 - Not Detected???Serratia marcescens, Culture 2 - Not Detected???Haemophilus influenzae, Culture 2 - Not Detected???Neisseria menin gitidis, Culture 2 - Not Detected???Pseudomonas aeruginosa, Culture 2 - Not Detected???Stenotrophomonas maltophilia, Culture 2 - Not Detected???Enterococcus faecalis, Culture 2 - Not Detected???Enterococcus faecium, Culture 2 - Not Detected???Listeria monocytogenes, Culture 2 - Not Detected???Staphylococcus spp., Culture 2 - Not Detected???Staphylococcus aureus, Culture 2 - Not Detected???Staphylococcus epidermidis, Culture 2 - Not Detected???Staphylococcus lugdunensis, Culture 2 - Not Detected???Streptococcus spp., Culture 2 - Not Detected???Streptococcus agalactiae, Culture 2 - Not Detected???Streptococcus pneumoniae, Culture 2 - Not Detected???Streptococcus pyogenes, Culture 2 - Not Detected???Ni albicans, Culture 2 - Not Detected???Ni auris, Culture 2 - Not Detected???Ni glabrata, Culture 2 - Not Detected???Ni krusei, Culture 2 - Not Detected???Ni parapsilosis, Culture 2 - Not Detected???Ni tropicalis, Culture 2 - Not Detected???Cryptococcus neoformans/gattii,Culture 2 - Not Detected???IMP (Carbapenemases), Culture 2 - Not Detected???KPC (Carbapenemases), Culture 2 - Not Detected???OXA-48-like (Carbapenemases), Culture 2 - Not Detected???NDM (Carbapenemases), Culture 2 - Not Detected???VIM (Carbapenemases), Culture 2 - Not Detected???mcr-1 (Colistin Resistance), Culture 2 - Not Detected???CTX-M (ESBL), Culture 2 - Not Detected???mecA/C(Methicillin Resistance),Culture 2 - Not applicable???mecA/C and MREJ (MRSA), Culture 2 - Not applicable???Laura/B (Vancomycin Resistance),Culture 2 - Not applicable Blood Culture 2 Results (04/08/2024) ???Blood Culture 2 Isolate 1 - Comment Blood Culture Result (04/08/2024) ???Blood Culture Isolate 1 - Comment CBC w/ Differential (04/06/2024) ???WBC - 8.4 k/mm3???RBC - 3.41 m/mm3???Hgb - 10.7 Gm/dL???Hct - 33.4 %???MCV - 97.9 femtoliters???MCH - 31.4 pg???MCHC - 32.0 Gm/dL???Platelet Count - 175 k/mm3???RDW-SD - 54.4 femtoliters???MPV - 8.9 femtoliters???Nucleated RBC (Automated) - 0.0 #/100 WBC'S???Abs. NRBC - 0.0 k/mm3???Abs. Neut - 7.2 k/mm3???Abs. Lymph - 0.3 k/mm3???Abs. [place] - 0.8 k/mm3???Abs. Eo - 0.0 k/mm3???Abs. Baso - 0.0 k/mm3???Neut % - 85.5 %???Lymph % - 3.2 %???[place] % - 9.5 %???Eos % - 0.5 %???Baso % - 0.2 %???Imm Gran- 1.1 %???Abs. Imm Gran - 0.1 k/mm3 Comprehensive Metabolic Panel (04/07/2024) ???Sodium - 145 mmol/L???Potassium - 3.9 mmol/L???Chloride - 113 mmol/L???Bicarbonate Level - 21 mmol/L???Anion Gap - 11???Glucose Level - 116 mg/dL???BUN - 16 mg/dL???Creatinine-Blood - 1.11 mg/dL???Estimated GFR Creatinine - 67 ML/MIN/1.73 M2???Calcium - 8.3 mg/dL???Protein, Total - 5.8 Gm/dL???Albumin - 3.0 Gm/dL???AG Ratio - 1.1???Alkaline Phosphatase - 62 units/L???AST (SGOT) - 15 units/L???ALT (SGPT) - 8 units/L???Bilirubin, Total - 0.6 mg/dL GLUCOSE POC (04/07/2024) ???Glucose, POC - 117 mg/dL IRON & TIBC (04/08/2024) ???Iron Level - 21 mcg/dL???Iron Binding Capacity, Unsaturated - 237 mcg/dL???Iron Binding Capacity, Estimated Total - 258 mcg/dL???% Iron Saturation - 8 % Lactate Level (04/06/2024) ???Lactate - 1.5 mmol/L Lipase (04/06/2024) ???Lipase - 20 units/L Mg Level (04/07/2024) ???Magnesium - 1.9 mg/dL Urinalysis w/hold for Urine Culture (04/06/2024) ???Appear/Color, Urine - YELLOW???Specific [place], Urine - 1.009???pH, Urine - 6.0???Albumin, Urine - TRACE???Glucose, Urine - NEGATIVE???Ketones, Urine - NEGATIVE???Bilirubin, Urine - NEGATIVE???Hemoglobin, Urine - 3+???Nitrite, Urine - POSITIVE???Leukocyte, Urine - 3+???Urobilinogen - NORMAL???WBC's, Urine - 150 /HPF???RBC's, Urine - 110 /HPF???Bacteria - HEAVY???Squamous Epith - 1 /HPF???HoldUrine Culture - Testing available 48 hours from time of collection. Urine Culture Result (04/06/2024) ???Urine Culture Isolate 1 - Escherichia coli???Urine Cult Antimicrobial Susceptibility - Comment Urine Culture, Routine (04/06/2024) ???Urine Culture Results - Final report???Urine Culture Specimen Source - URINE VITAMIN B12 (04/08/2024) ???Vitamin B12 Level - 756 pg/mL You will be contacted within 72 hours with your results. Allergies (NKA means No Known Allergies) Depakote??(Ataxia) TEGretol Problems Active Problems??(15) Anxiety?? Atrial fibrillation?? Bipolar 1 disorder?? Chronic anemia?? Chronic schizoaffective disorder?? Dementia?? Depression?? GERD (gastroesophageal reflux disease)?? History of BPH?? History of recurrent UTIs?? HLD (hyperlipidemia)?? HTN (hypertension)?? Parkinson's disease?? Vitamin D deficiency?? Xerosis of skin?? Education Materials Below is the list of Educational Leaflet Providered with your Discharge Instructions. [employer] Patient Education - Urinary Tract Infections in Men?? [employer] Patient Education - Sepsis?? Valuables and Belongings I fully understand and agree that [facility] accepts no responsibility for all my personal property including clothing, toilet articles, radios, jewelry, dentures, hearing aids, rings, money, or any other property that is in my possession or is brought to me after admission. I understand certain valuables may be placed in a hospital safe for a short period of time. I understand that the hospital is not liable for loss or damage due to accident, fire, or other natural occurrence while said property is in the safe. I accept full responsibility for any personal property that I keep with me, and will not hold the hospital responsible in case of loss or disappearance. I acknowledge that i have been encouraged to send valuables and belongings home. ?? Review of Valuable and Belonging List: With patient Date for Pt to Sign Valuables/Belongings: 04/07/24 13:29:00 ?? Other Discharge Information ? Pulmonary Rehab Status?? Pulmonary Rehab Discharge Status?? Respiratory Rate: 18 br/min ? Common Emergency Awareness Tips IS IT A STROKE? Act FAST and Check for these signs: FACE Does the face look uneven? ARM Does one arm drift down? SPEECH Does their speech sound strange? TIME Call at any sign of stroke ?? Heart Attack Signs Chest discomfort: Most heart attacks involve discomfort in the center of the chest and lasts more than a few minutes, or goes away and comes back. It can feel like uncomfortable pressure, squeezing, fullness or pain. Discomfort in upper body: Symptoms can include pain or discomfort in one or both arms, back, neck, jaw or stomach. Shortness of breath: With or without discomfort. Other signs: Breaking out in a cold sweat, nausea, or lightheaded. Remember, MINUTES DO MATTER. If you experience any of these heart attack warning signs, call to get immediate medical attention! ?? Smoking can increase your chances of developing chronic health problems and can cause harmful effects to other family members in your house. If you smoke, you are strongly encouraged to quit. Please call [facility] [employer] Link at [phone] or [phone] ([phone]) or log in to [email or web address] for referrals to smoking cessation programs. ?? 267 Suicide & Crisis Lifeline is available 07/11 if you or someone you know needs to find a reason to keep living. By calling 930 you'll be connected to a skilled, trained counselor at a crisis center in your area. INPATIENT DISCHARGE INSTRUCTIONS SIGNATURE PAGE KRISTY BANDA Location:[facility] Registration Date and Time:04/06/2024 17:56 EST Primary Care Physician: Major MYERS, Carl, Attending Physician: Ruperto Zayas MD, I BUDSILVESTREKRISTY, have received the above patient education materials/instructions and have verbalized understanding. If ambulance or transport services are being used I further acknowledge being given a choice of service. ?? If you need to contact me, please call me at this number: . Patient/Try On Baster Name: Patient/Try On Baster Signature: Relationship to Patient: Witness Name/Signature: Date: * Alissa Redding DO: PERFORM Event Display: Patient Education Leaflets Authored Date: [id number] Urinary Tract Infections in Men ?? [id number] Urinary Tract Infections in Men Urinary tract infections (UTIs) are most often caused by bacteria that invade the urinary tract. The bacteria may come from outside the body. Or they may travel from the skin outside the rectum into the urethra. The urethra is the tube that carries urine from the bladder out of the body. Pain in oraround the urinary tract is a common symptom for most UTIs. Woman more commonly get UTIs than men. That???s because their urethra is shorter. Older men get UTIs more commonly than younger because older men may have an enlarged prostate. A UTI in a male is usually a sign that something is wrong with their urinary system. Using a catheter also increases the risk for UTI. Most UTIs are treated with antibiotics. These kill the bacteria. How long you need to take them depends on the type of infection. Take antibiotics exactly as directed until all of the medicine is gone. If you don't, the infection may not go away and may become harder to treat in the future. Gender words are used here to talk about anatomy and health risk. Please use this information in a way that works best for you and your provider as you talk about your care. Home care The lifestyle changes below will help get rid of your current infection. They may also help preventfuture UTIs: ??? Drink plenty of fluids, such as water, juice, or other caffeine-free drinks. This helps flush bacteria out of your system. ??? Empty your bladder when you feel the urge to urinate and before going to sleep. Urine that stays in your bladder makes an infection more likely. ??? If youare uncircumcised, pull the foreskin back and wash under the foreskin each time you take a bath or shower. ?? Follow-up care Follow up with your healthcare provider, or as advised if your symptoms continue after finishing all of the antibiotic medicine. Your healthcare provider may do tests to make sure the infection has cleared. If needed, more treatment can be started. ?? When to get medical advice Call your healthcare provider right away if any of the following occur: ??? Frequent urination ??? Pain or burning when passing urine ??? Weak urine stream ??? Feeling that you can't empty your bladder ??? Fever of 100.4??F (38??C) or higher , or as directed by your healthcare provider ??? Urine that looks dark, cloudy, or reddish in color. This may mean that blood is in the urine. ??? Urine smells bad ??? Feeling pain even when not urinating ??? Tiredness ??? Pain in the belly (abdomen) area below the bellybutton, or in the back or side, below the ribs ??? Nausea or vomiting ??? Have a strong urge to urinate, but only a small amount of urine is passed (dribbling) ??? Feeling confused or very tired (in older adults) ?? Last Reviewed Date: 2022 ?? 9057-2577 [employer]. All rights reserved. This information is not intended as a substitute for professional medical care. Always follow your healthcare professional's instructions. ?? * Alissa Redding DO: PERFORM Event Display: Patient Education Leaflets Authored Date: [id number] Sepsis ?? 09577 Sepsis Sepsis is a very serious condition. It happens when your body responds with widespread inflammationto a severe infection, usually caused by bacteria. Sometimes it may be caused by a virus. Sepsis can be deadly. Blood pressure may drop. The lungs, liver, and kidneys may start to fail. Sepsis is a medical emergency. If someone has symptoms of sepsis, call 911 right away. Risk factors Those most at risk for sepsis are: ??? Infants or older adults ??? People who have an illness that weakens their immune system,??such as cancer, AIDS, or diabetes ??? People being treated with chemotherapy medicines, high-dose steroids, or radiation, which weaken the immune system ??? People who have had an organ transplant ??? People with long-term (chronic) lung, kidney, liver, or heart disease??? People with a very severe infection, such as pneumonia, meningitis, or a urinary tract infection ?? When to call 911 Sepsis is a medical emergency. Call 911 right away if you have a fever with any of these symptoms: ??? Chills and shaking ??? Fast heartbeat and breathing ??? Trouble breathing ??? Severe nausea or uncontrolled vomiting ??? Confusion, disorientation, drowsiness, or dizziness ??? Decreased urination??? Severe pain, including in the back or joints? What to expect in the emergency room To treat sepsis, antibiotics and fluids may by given through an intravenous (IV) line. ??? Blood and urine tests are done to look for bacteria. They also check for organ failure. ??? Blood, urine, or sputum cultures may be taken. The samples are sent to a lab. They are placed in a special container. Any bacteria should grow in 24 to 48 hours. ??? X-rays or other imaging tests may be done. A person with sepsis will be admitted to the hospital and treated with antibiotics. Treatment will also include oxygen and IV (intravenous) fluids and other medicines as needed. The person will be watched very closely, usually in the intensive care unit (ICU). ?? Last Reviewed Date: 2022 ?? [id number] [employer]. All rights reserved. This information is not intended as a substitute for professional medical care. Always follow your healthcare professional's instructions. ?? Patient Care team information Care Team Personnel Name: Valentine Avina RN Position: [facility] RN Member Role: Primary Care Nurse Name: Senia Hughes RN Position: [facility] RN Supv Member Role: Primary Care Nurse Name: Gabrielle Iniguez Position: [facility] RN Member Role: Primary Care Nurse Name: Denae Alexandre RN Position: [facility] RN Member Role: Primary Care Nurse Name: Brea Romero Position: S Outreach Member Role: Lif[employer] Consulting Physician Name: Demetrice Gonsalves RN Position: [facility] RN Member Role: Primary Care Nurse Name: Samreen Neff RN Position: [facility] RN Member Role: Primary Care Nurse Name: Beryl Chase NP Position: [facility] Associate Professional Member Role: [employer] Consult[employer] Provider Address: [address] [place] [address] [address] [facility] [address] Telecom: Name: Isael Ho MD Position: [facility] Renal MD Member Role: Lifetime Consulting Physician Address: [address] [facility] [place] [address]- [place] Telecom: Name: Dominic Jimenez RN Position: [facility] RN Member Role: Primary Care Nurse Name: Ruperto Sanchez RN Position: [facility] RN Member Role: Primary Care Nurse Name: Brandi Garcia LPN Position: [facility] RN Member Role: Primary Care Nurse Name: Sarahi Torres RN Position: [facility] RN Member Role: Primary Care Nurse Name: Crystal Mayers Position: [facility] RN Member Role: Primary Care Nurse Name: Carl Gonsalves MD Position: [facility] Outreach Member Role: PCP Address: [address] [place] [address]- Telecom: Name: Maia Perales RN Position: [facility] RN Member Role: Primary Care Nurse Name: Anjana Alves RN Position: [facility] SN RN Member Role: Primary Care Nurse Name: Yodit Queen RN Position: [facility] RN Member Role: Primary Care Nurse Name: Cathi Banuelos RN Position: [facility] RN Member Role: Primary Care Nurse Care Team Related Persons Name: KRISTY BANDA Name: PAULINE GLYNN Name: GABRIELLE KNIGHT Insurance Providers Guarantor name: KRISTY GORDONMELISSA Health Plan Information #: 3 Payer: nfon Member Number: [id number] Policy Number: NA Group Number: NA Health Plan Information #: 4 Payer: [employer] Member Number: [id number] Policy Number: NA Group Number: NA Health Plan Information #: 2 Payer: MEDICARE PART B OUTPT Member Number: [id number] Policy Number: NA Group Number: NA Health Plan Information #: 1 Payer: MEDICARE A INPT 25 Member Number: [id number] Policy Number: NA Group Number: NA
== END 2024-04-15 12:20 | disposition home or self-care (01) ==
LOC: HO.US 12:19
PROVIDERS: PCP Internal Medicine; Visit Provider Internal Medicine
DX: I82.412 Acute embolism and thrombosis of left femoral vein (principal)
CPT/HCPCS: 93971

== ENCOUNTER → 2024-04-15 12:21 | Outpatient (BNV) | payer MEDICARE, SELFPAY | PROVIDERS: PCP Internal Medicine; Visit Provider Radiology Vascular & Interventional Radiology | DX: I82.412 Acute embolism and thrombosis of left femoral vein (principal) | CPT/HCPCS: 93971 ==

== ENCOUNTER 2024-04-24 09:12 | Outpatient (AMB) | payer MEDICARE, SELFPAY ==
--- NOTE | 2024-04-24 09:13 | A.OFFVIS_ITS ---
Intake Visit Reasons: 3M Med Review/CT(tolterodine ER)set Intake Note: Patient is present for 3M MED REVIEW/CT Urology Medication:TOLTERODINE Antibiotic Allergy:NONE Blood Thinner:APIXABAN Labor Relations Supervisor Required: No Allergies No Known Allergies Allergy (Verified 04/24/24 09:15) HPI Comments Details: Charles is a very pleasant male. He is a patient of Dr. Enriquez. He is seen for the following urologic conditions - prostate cancer - radiation cystitis - renal cyst Telemedicine Evaluation 15 min Consultation [facility] [place] Video Tolterodine was not useful Has had some benefit from use of penile clamp Using during the day and emptying bladder every 3 hours No episodes of hematuria since last visit Trial tolterodine for urinary urgency Three pads per day Prior discussion regarding sling versus artificial sphincter versus penile clamp No bleeding since last appointment Six-month follow-up PSA Prostate cancer 2004 - radical prostatectomy [facility]. Postprocedure radiation required 2009 Laboratories - 10/04 PSA < 0.1, <12/05 <0.1, 06/08 <0.1, 05/09 <0.1, 11/06 <0.1, 05/10 <0.1, 12/08 <0.1 Renal cyst Followed by MRI. Complex cyst right side. No enhancement. Yearly ultrasound. Imaging - 09/03 ULTRASOUND RIGHT COMPLEX CYST 7 X 8 CM, left 2 simple cysts Radiation cystitis Diagnosis cystoscopy June 2020 Hemorrhagic cystitis responded to tranexamic acid with vitamin E Continue with vitamin-E Cytology 06/07 NAD Cystoscopy 08/06 hemorrhagic cystitis and radiation cystitis lower half bladder 01/06 episode of hematuria retention and Morales catheter placed 01/06 underwent hyperbaric oxygen Urinary leakage 3 pads a day [facility] Medical History (Updated 04/24/24 @ 09:35 by Ruperto Trevino MD) Radiation cystitis Hypertension Diverticulosis Overweight (BMI 25.0-29.9) History of prostate cancer Renal cyst Vitamin D deficiency Osteoarthritis of left knee Impaired fasting glucose Pure hypercholesterolemia Benign essential hypertension Surgical History (Updated 03/21/24 @ 10:44 by Cade Enriquez MD) Hx of right inguinal hernia repair (02/16/23) History of ankle surgery History of colonoscopy History of meniscectomy of left knee (~06/05/12) Hx of prostatectomy Hx of umbilical hernia repair Family History Father Cancer Mother Colon cancer Social History Household Members: Spouse Housing: House Are you a primary manager intensive care unit to a significant other at home: No Do you presently have visiting nurse or other home services: No Alcohol intake: current Alcohol intake frequency: 0-2 drinks per day Alcohol type: beer Comment: . 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 Cognitive needs: No Hearing needs: No Vision needs: Yes Review of Systems Const All systems reviewed & are unremarkable except as noted in HPI and below Reports no additional complaints Resp Reports no additional complaints GI Reports no additional complaints Reports as per HPI Musc Reports no additional complaints Physical Exam Telemedicine evaluation Appropriate responses Regular breathing rate and rhythm HEENT Head: Yes normal to inspection Ears: hearing grossly normal bilaterally Eyes General: appearance normal, both eyes and all related structures Neck Neck: Yes normal visual inspection Chest Chest palpation & inspection: normal inspection of the chest Resp Effort & Inspection: normal respiratory effort and able to speak in complete sentences Telehealth Telehealth Telehealth Platform: [employer] Location of provider rendering services: practice address Location of patient: address on file Patient Identification confirmed using: Name, : Yes Telehealth method: video Patient verbally consented to treatment: Yes Patient verbally consented to billing insurance company: Yes Patient informed of any privacy concerns related to visit: Yes Minutes spent on Phone/Video with Pt.: 15 Assessment & Plan Assessment & Plan (1) Radiation cystitis: Code(s): N30.40 - Irradiation cystitis without hematuria Category: Medical (2) Male stress incontinence: Code(s): N39.3 - Stress incontinence (female) (male) Category: Medical Plan Six-month follow-up PSA Medications: Discontinued tolterodine ER Discontinued Reason: Doctor's Order 2 mg PO DAILY 30 days 30 caps 1RF N28.1 - Cyst of kidney, acquired, R39.15 - Urgency of urination Patient Instructions: Imaging studies, laboratory and physical exam results were discussed and reviewed in detail. No major barriers to patient understanding were identified. An opportunity to ask questions regarding the treatment plan was provided. All questions were answered. The patient expressed understanding and agreement with the above treatment plan. The patient is aware they should contact our office by phone for worsening of their current condition or the appearance of new urologic symptoms. Compliance is encouraged with any medications and followup testing that is ordered. It is a privilege to participate in the urologic care of your patient. If you have any questions or concerns regarding treatment for the above conditions, or other urologic issues, please do not hesitate to contact me. The office telephone contact is [phone]. This note is constructed using voice recognition software. While every effort has been made to ensure accuracy professional volleyball player errors may have been included. Yours sincerely, Dr Ruperto Trevino MD, [facility] - Urology Providers of Expert, Compassionate Care for the Genitourinary System Coding Level of Care Code Tele Est Pt Level 3 (73973) Diagnoses Radiation cystitis N30.40 Male stress incontinence N39.3
== END 2024-04-24 10:45 | disposition home or self-care (01) ==
LOC: HO.HUSH 09:12
PROVIDERS: PCP Internal Medicine; Visit Provider Urology
DX: N30.40 Irradiation cystitis without hematuria (principal); N39.3 Stress incontinence (female) (male)
CPT/HCPCS: 99213

== ENCOUNTER → 2024-04-24 09:12 | Outpatient (BNVA) | payer MEDICARE, SELFPAY | PROVIDERS: PCP Internal Medicine; Visit Provider Urology ==

== ENCOUNTER 2024-07-22 08:40 | Outpatient (AMB) | payer MEDICARE, SELFPAY ==
--- NOTE | 2024-07-22 08:48 | MHC.OFFVIS ---
Vital Signs 07/22/24 08:48 Height 5 ft 9 in Intake Visit Reasons: Pain @ hernia site~ [facility] 02-16-23 Intake Note: Patient scheduled today's appointment c/o abdominal pain along previous inguinal hernia repair site. Thinks another hernia developed. Patient c/o: Biometric Screener Required: No Accompanied by: Self / Same As Patient Allergies No Known Allergies Allergy (Verified 07/22/24 08:49) HPI Comments Details: Patient presents with a roughly 2 week history of right groin pain at rest. When he is doing regular activities has no issues or complaints. When he is reclined or night in bed he has right groin pain going into the scrotum. Patient otherwise has no other GI issues or complaints early has some recent constipation issues he says. Tolerating his diet. No limitation of activities. Patient was not recall any trauma or extreme activities which may have resulted in the muscle strain or pull. Patient was known to me from hernia repair roughly 16 months ago of the right groin. Chart was reviewed and patient evaluate [facility] Medical History (Updated 04/24/24 @ 09:35 by Ruperto Trevino MD) Radiation cystitis Hypertension Diverticulosis Overweight (BMI 25.0-29.9) History of prostate cancer Renal cyst Vitamin D deficiency Osteoarthritis of left knee Impaired fasting glucose Pure hypercholesterolemia Benign essential hypertension Surgical History (Updated 07/22/24 @ 08:57 by Fabio Finley MD) Hx of right inguinal hernia repair (02/16/23) History of ankle surgery History of colonoscopy History of meniscectomy of left knee (~06/05/12) Hx of prostatectomy Hx of umbilical hernia repair Family History Father Cancer Mother Colon cancer Social History Household Members: Spouse Housing: House Are you a primary assisted living care manager to a significant other at home: No Do you presently have visiting nurse or other home services: No Alcohol intake: current Alcohol intake frequency: 0-2 drinks per day Alcohol type: beer Comment: . 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 Patient had prior open prostate surgery as well as radiation. He has urinary incontinence and is wearing a occlusive device on his penis. Left groin negative. Right groin incision clean dry and intact. No evidence of any recurrence or infection. Assessment & Plan Assessment & Plan (1) Inguinodynia, right: Code(s): R10.31 - Right lower quadrant pain Category: Surgical Plan At present, which he had patient was relatively. Concerns of recurrence or infection are not present. Current plan is treat the patient with warm compresses or ice to the area, script for Motrin, avoid strenuous activities that aggravate the symptoms, and he will see me in a few weeks' time for follow-up or p.r.n.. All questions answered. Coding Level of Care Code Est Pt Level 4 (90978) Diagnoses Inguinodynia, right R10.31
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
--- OUTSIDE RECORDS SUMMARY | 2024-07-22 09:17 | XMS_ITS | Continuity of Care Document ---
Author Organization [facility] ter Address [address] [place] [address]- Care Team Providers Care Grease Refining Supervisor Name Role Phone Alyson MYERS, Rickey Vang Primary Care Physician Encounter [facility] [place] Date(s): 06/20/24 - 07/20/[address] [id number] Attending Physician: Not on Staff, Attending MD Admitting Physician: Not on Staff, Admitting MD Referring Physician: Not on Staff, Referring MD Encounter Type: Pre-Outpt Allergies, Adverse Reactions, Alerts Substance Criticality Severity Reaction Reaction Severity Status Depakote Ataxia Active TEGretol Active Immunizations Given and Recorded Vaccine Date Status Refusal Reason influenza virus vaccine, inactivated 01/25/23 Give n pneumococcal 20-valent conjugate vaccine 08/30/22 Recorded [id number] 12y+ bivalent booster vax 01/13/22 Recorded SARS-CoV-2 (COVID-19) mRNA BNT-162b2 vac 05/13/20 Recorded SARS-CoV-2 (COVID-19) mRNA BNT-162b2 vac 04/22/20 Recorded pneumococcal 23-valent vaccine 11/01/12 Recorded Medications acetaminophen 325 mg oral tablet 650 mg, 2, tablet, By Mouth, Daily, Refills 0, Maintenance, 06/20/24 8:56:00 AM EST, Partial fill upon patient request if the prescription is for a schedule II opioid drug. Start Date: 06/20/24 Status: Ordered Repeat number: 1 acetaminophen 325 mg oral tablet 650 mg, [...] Date: 02/23/20 Status: Ordered Repeat number: 1 carbidopa-levodopa 25 mg-100 mg [...] Date: 06/13/20 Status: Ordered Repeat number: 1 pantoprazole 20 [...] Confirmed Active Xerosis of skin Confirmed Active Social History Social History Type Response Smoking Status Former smoker, quit more than 30 days ago entered on: 07/04/23 Sex Sex Representation Male (finding) Patient Care team information Care Team Personnel Name: Valentine Avina RN Position: [facility] AMB Nurse Member Role: Primary Care Nurse Name: Senia Hughes RN Position: [facility] RN Supv Member Role: Primary Care Nurse Name: Ximena Harding RN Position: [facility] RN Member Role: Primary Care Nurse Name: Gabrielle Iniguez Position: [facility] RN Member Role: Primary Care Nurse Name: Denae Alexandre RN Position: [facility] RN Member Role: Primary Care Nurse Name: Maria Horvath RN Position: [facility] RN Member Role: Primary Care Nurse Name: Brea Romero Position: [facility] Outreach Member Role: Lifetime Consulting Physician Name: Demetrice Gonsalves RN Position: [facility] RN Member Role: Primary Care Nurse Name: Citlaly Mario RN Position: [facility] RN Member Role: Primary Care Nurse Name: Linda Rolon RN Position: [facility] RN Member Role: Primary Care Nurse Name: Samreen Neff RN Position: [facility] RN Member Role: Primary Care Nurse Name: Beryl Chase NP Position: [facility] Associate Professional Member Role: Lifetime Consulting Provider Address: [address] [place], [place] [address] [place], [place] [address] Telecom: Name: Isael Ho MD Position: [facility] Renal MD Member Role: Lifetime Consulting Physician Address: [address] [place], [place] [address] [place], [place] [address] Telecom: Name: Dominic Jimenez RN Position: [facility] RN Member Role: Primary Care Nurse Name: Brandi Garcia LPN Position: [facility] RN Member Role: Primary Care Nurse Name: Loulou Wyatt RN Position: S RN Member Role: Primary Care Nurse Name: Sarahi Torres RN Position: [facility] RN Member Role: Primary Care Nurse Name: Crystal Mayers Position: [facility] RN Member Role: Primary Care Nurse Name: Maia Perales RN Position: [facility] RN Member Role: Primary Care Nurse Name: Yodit Rodrigues RN Position: [facility] RN Member Role: Primary Care Nurse Name: Rickey Shields MD Position: [facility] Outreach Member Role: PCP Address: [address] [place] [address]- Telecom: Name: Anjana Alves RN Position: [facility] SN RN Member Role: Primary Care Nurse Name: Yodit Queen RN Position: [facility] RN Member Role: Primary Care Nurse Name: Cathi Banuelos RN Position: [facility] RN Member Role: Primary Care Nurse Name: Amber Orozco LPN Position: [facility] RN Member Role: Primary Care Nurse Care Team Related Persons Name: KRISYT BANDA Name: PAULINE GLYNN Name: GABRIELLE KNIGHT Insurance Providers Guarantor name: KRISTY BANDA Health Plan Information #: 1 Payer: [facility] Member Number: NA Policy Number: NA Group Number: NA
== END 2024-07-22 08:56 | disposition home or self-care (01) ==
PROVIDERS: PCP Internal Medicine; Visit Provider Surgery
DX: R10.31 Right lower quadrant pain (principal)
CPT/HCPCS: 99214

== ENCOUNTER → 2024-07-22 08:40 | Outpatient (BNVA) | payer MEDICARE, SELFPAY | PROVIDERS: PCP Internal Medicine; Visit Provider Surgery | DX: R10.31 Right lower quadrant pain (principal) | CPT/HCPCS: 99212 ==

== ENCOUNTER 2024-07-23 01:52 | Inpatient (IN) | payer MEDICARE, SELFPAY ==
[2024-07-23 01:58] VITALS: BP 147/71; PULSE 109; RESP 20; TEMP 36.7; O2SAT 99; BMI 25.1
[2024-07-23 02:21] LABS: Basophils Percent Auto 0.1 % (0-2); Eosinophils Percent Auto 0.4 % (0-4); Hematocrit 34.5 % (42.0-52.0); Hemoglobin 11.5 g/dl (14.0-18.0); Imm Gran Abs Auto 0.03 X10*3/uL (0.00-0.03); Imm Gran Pct Auto 0.3 % (0.0-0.4); Lymphocytes Absolute Auto 1.1 X10*3/uL (1.2-4.9); Lymphocytes Percent Auto 11.2 % (20-40); MANUAL DIFF FLAG NO; Mean Corpuscular HGB Conc 33.3 g/dl (31.0-36.0); Mean Corpuscular Hemoglobin 29.4 pg (27.0-33.0); Mean Corpuscular Volume 88.2 fL (80.0-98.0); Mean Platelet Volume 7.9 fL (9.4-12.4); Monocytes Absolute Auto 0.9 X10*3/uL (0.1-1.2); Monocytes Percent Auto 9.1 % (2-11); Neutrophils Absolute Auto 7.5 x10*3/uL (2.0-8.3); Neutrophils Percent Auto 78.9 % (45-73); Platelet Count 263 X10*3/uL (160-400); Red Blood Count 3.91 X10*6/uL (4.60-5.80); Red Cell Distribution Width 12.9 % (11.0-16.0); White Blood Count 9.6 X10*3/uL (4.8-10.8)
[2024-07-23 02:28] LABS: Appearance Urine Turbid; Color Urine RED; Glucose Urine UA Negative (Negative); Leukocyte Esterase Urine Moderate (2+) (Negative); Nitrite Urine Negative (Negative); PH 6.5 (5.0-9.0); Specific Gravity - Urine 1.025 (1.005-1.025); UMIC TRIGGER UACC YES; Urine Blood Large (3+) (Negative); Urine Ketones Trace mg/dL (Negative); Urine Protein 300 (3+) mg/dL (Neg-Trace)
[2024-07-23 02:29] LABS: Bacteria Urine 1+ (None Seen); Hyaline Casts Urine 0-2 /LPF (0-2); RBC Urine >20 /HPF (0-2); Squamous Epithelial Cell Urine 0-2 /HPF (0-2); UACC Culture Trigger YES; WBC Urine 0-5 /HPF (0-5)
[2024-07-23 02:39] LABS: Alanine Aminotransferase 13 U/L (0-40); Albumin Level 3.8 g/dL (3.5-5.0); Anion Gap 17 (12-20); Aspartate Amino Transferase 26 U/L (5-37); Bilirubin Total 0.3 mg/dL (0.0-1.0); Blood Urea Nitrogen 29 mg/dL (9-16); Calcium 9.9 mg/dL (8.4-10.2); Carbon Dioxide 22 mmol/L (22-29); Chloride 105 mmol/L (96-108); Creatinine Clr Calc Pharmacy 48.2; Estimated Glomerular Filt Rate 57; Glucose Random 123 mg/dL (60-115); Potassium 4.5 mmol/L (3.3-5.1); Sodium 139 mmol/L (135-145); Total Protein 7.9 g/dL (6.5-8.0)
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
--- NOTE | 2024-07-23 02:58 | PC.NURSE ---
post void bladder scan 387. pt states he is only able to void small amounts of urine each time and still feels full of urine afterwards. reports pressure. MD Ansari aware. verbal order to place medina catheter at this time.
--- NOTE | 2024-07-23 03:03 | ED.MALEGU ---
HPI - Male Genitourinary General Chief complaint: Urogenital-Male Stated complaint: difficultly urinating, blood in urine Time Seen by Provider: 07/23/24 03:22 Source: patient and family Mode of arrival: ambulatory Limitations: no limitations History of Present Illness ED Provider: DR. Ansari HPI Narrative: 79-year-old male with history of HTN, HLD, left lower DVT on Eliquis, prostate cancer s/p radiation surgery presented to the ED for suprapubic pain and distention with only able to dribble urine, patient noted blood in the urine stopped his Eliquis on his own 4 days ago, came in today complaining of unable to urinate with suprapubic pain, postvoid ultrasound showed patient has 400 cc in the bladder. Related Data Home Medications ?Medication ?Instructions ?Recorded ?Confirmed cholecalciferol (vitamin D3) 10 10 mcg PO DAILY 06/01/20 03/21/24 mcg (400 unit) tablet multivitamin 1 tab PO DAILY 06/01/20 03/21/24 ascorbic acid (vitamin C) 500 mg 500 mg PO DAILY 12/08/21 03/21/24 tablet (Vitamin C) ferrous sulfate 142 mg (45 mg 142 mg PO DAILY 12/18/23 03/21/24 iron) tablet,extended release Previous Rx's ?Medication ?Instructions ?Recorded vitamin E (dl, acetate) 450 mg 450 mg PO DAILY #90 caps 06/17/20 (1,000 unit) capsule apixaban 2.5 mg tablet (Eliquis) 2.5 mg PO BID 90 days #180 tabs 05/10/23 amlodipine 5 mg-benazepril 40 mg 1 cap PO DAILY 90 days #90 caps 05/26/23 capsule levofloxacin 500 mg tablet 500 mg PO Q24H 6 days #6 tabs 12/22/23 polyethylene glycol 3350 17 17 g PO DAILY constipation #510 07/08/24 gram/dose oral powder (Miralax) grams ibuprofen 800 mg tablet 800 mg PO Q8H PRN pain #30 tabs 07/22/24 Allergies Allergy/AdvReac Type Severity Reaction Status Date / Time No Known Allergies Allergy Verified 07/23/24 01:59 Review of Systems Review of Systems: All other systems are reviewed and are negative Constitutional: Reports as per HPI and Reports no additional constitutional complaints Eyes: Reports as per HPI and Reports no additional eye complaints Reports system reviewed and no additional complaints, except as documented Cardiovascular: Reports as per HPI and Reports no additional cardiovascular complaints Respiratory: Reports as per HPI and Reports no additional respiratory complaints Gastrointestinal: Reports as per HPI and Reports no additional gastrointestinal complaints Genitourinary: Reports no additional female genitourinary complaints Musculoskeletal: Reports no additional musculoskeletal complaints Skin/Breast: Reports system reviewed and no additional complaints, except as docu Psychiatric: Reports no additional psychiatric complaints Endocrine: Reports no additional endocrine complaints Hematologic/Lymphatic: Reports no additional hematologic/lymphatic complaints Allergic/Immunologic: Reports no additional allergic/immunologic complaints Reports system reviewed and no additional complaints, except as documented and Reports Abnormal speech present [facility] Past Medical History Medical History Radiation cystitis Hypertension Diverticulosis Overweight (BMI 25.0-29.9) History of prostate cancer Renal cyst Vitamin D deficiency Osteoarthritis of left knee Impaired fasting glucose Pure hypercholesterolemia Benign essential hypertension Surgical History Hx of right inguinal hernia repair (02/16/23) History of ankle surgery History of colonoscopy History of meniscectomy of left knee (~06/05/12) Hx of prostatectomy Hx of umbilical hernia repair Family History Family History Father Cancer Mother Colon cancer Social History Social History Household Members: Spouse Housing: House Are you a primary patient care provider to a significant other at home: No Do you presently have visiting nurse or other home services: No Alcohol intake: current Alcohol intake frequency: 0-2 drinks per day Alcohol type: beer Comment: . 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 Blood pressure elevated. Heart rate elevated, Respiratory rate normal. Temperature normal. Oxygen saturation normal. Appearance: Alert. Oriented X3. No acute distress. Head: Normal external exam. Normocephalic. Atraumatic. No Carreno signs noted. No raccoon eyes noted Eyes: PERRLA. EOMI. Conjunctiva and sclera normal. Eyelids normal. ENT: TM's Normal. Pharynx normal. Uvula midline. Moist mucous membranes. No trismus noted. No drooling noted. No muffled voice noted. Neck: Normal inspection. Neck supple. FROM. No adenopathy. Thyroid Normal. No meningeal signs. No neck mass noted. CVS: Normal heart rate and rhythm. Heart sound normal. No murmurs noted. Pulses normal throughout. Respiratory: No respiratory distress. Painless inspiration. Breath sounds normal. No wheezes/rales/rhonchi noted. Chest nontender. No accessory muscle usage noted or decreased air movement noted. Abdomen: Soft, suprapubic distention and tenderness, Bowel sounds normal in all 4 quadrants. No distention noted. No organomegaly noted. No visible injury noted. Back: No CVA tenderness. Full range of motion noted. Skin: Skin warm and dry. Normal skin color. Normal skin turgor. No rashes/lesions/lacerations noted. Extremities: No lower extremity edema. Extremities exhibit normal range of motion. Extremities nontender. Neuro: Oriented X 3. Cranial nerve exam: II-XII are grossly intact No motor deficit. No sensory deficit. Reflexes normal. Course Reevaluation(s) Reevaluation #1: Rene hematuria and urinary retention, multiple attempts to insert Morales catheter by nursing was unsuccessful. Was able to insert 18 [place] coude Morales catheter with 550 cc of bloody urine contains blood clots. Unable to past larger 3 ways catheter, patient likely going to need a CBI, will consult Urology in the morning. Patient normally take Eliquis which he has stopped 4 days ago. Stable H&H. Kidney function tests is at baseline. Time: 04:14 Reevaluation #2: Case discussed with Dr. Trevino to admit the patient to the medical service and he will consult for 3 ways catheter placement for further CBI. Time: 06:29 Medical Decision Making Differential Diagnosis Differential Diagnoses: The differential diagnosis associated with the presentation includes (Urinary retention, rene hematuria, UTI, MARYSE, severe anemia, coagulopathy, bladder irrigation.) Admission/Observation Consideration of admission/observation: Escalation of care including admission/observation considered Consult Healthcare Provider Management of the patient was discussed with: Storage Center Manager (Dr. Trevino) Lab Data MDM Lab Attestation statement: I reviewed the patient's lab results. 07/23/24 02:11 07/23/24 02:11 Labs: Lab Results 07/23/24 Range/Units 02:11 WBC 9.6 (4.8-10.8) X10*3/uL RBC 3.91 L (4.60-5.80) X10*6/uL Hgb 11.5 L (14.0-18.0) g/dl Hct 34.5 L (42.0-52.0) % MCV 88.2 (80.0-98.0) fL MCH 29.4 (27.0-33.0) pg MCHC 33.3 (31.0-36.0) g/dl RDW 12.9 (11.0-16.0) % Plt Count 263 D (160-400) X10*3/uL MPV 7.9 L (9.4-12.4) fL Immature Gran % (Auto) 0.3 (0.0-0.4) % Neut % (Auto) 78.9 H (45-73) % Lymph % (Auto) 11.2 L (20-40) % [place] % (Auto) 9.1 (2-11) % Eos % (Auto) 0.4 (0-4) % Baso % (Auto) 0.1 (0-2) % Lymph # (Auto) 1.1 L (1.2-4.9) X10*3/uL [place] # (Auto) 0.9 (0.1-1.2) X10*3/uL Eos # (Auto) 0.0 (0.0-0.4) X10*3/uL Baso # (Auto) 0.0 (0.0-0.2) X10*3/uL Abs Immat Gran (auto) 0.03 (0.00-0.03) X10*3/uL Absolute Neuts (auto) 7.5 (2.0-8.3) x10*3/uL Absolute Nucleated RBC 0.000 (0.0-0.012) X10*3/uL Nucleated RBC % (auto) 0.0 (0.0-0.2) /100WBC Sodium 139 (135-145) mmol/L Potassium 4.5 (3.3-5.1) mmol/L Chloride 105 (96-108) mmol/L Carbon Dioxide 22 (22-29) mmol/L Anion Gap 17 (12-20) BUN 29 H (9-16) mg/dL Creatinine 1.22 (0.5-1.4) mg/dL Estim Creat Clear Calc 48.2 Estimated GFR 57 Random Glucose 123 H (60-115) mg/dL Calcium 9.9 (8.4-10.2) mg/dL Total Bilirubin 0.3 (0.0-1.0) mg/dL AST 26 (5-37) U/L ALT 13 (0-40) U/L Alkaline Phosphatase 58 (39-117) U/L Total Protein 7.9 (6.5-8.0) g/dL Albumin 3.8 (3.5-5.0) g/dL Urine Color RED Urine Appearance Turbid Urine pH 6.5 (5.0-9.0) Ur Specific [employer] [place] [employer] 1.025 (1.005-1.025) Urine Protein 300 (3+) H (Neg-Trace) mg/dL Urine Glucose (UA) Negative (Negative) mg/dL Urine Ketones Trace (Negative) mg/dL Urine Blood Large (3+) H (Negative) Urine Nitrite Negative (Negative) Ur Leukocyte Esterase Moderate (2+) H (Negative) Urine RBC >20 H (0-2) /HPF Urine WBC 0-5 (0-5) /HPF Ur Squamous Epith Cells 0-2 (0-2) /HPF Urine Bacteria 1+ (None Seen) Hyaline Casts 0-2 (0-2) /LPF Discharge Plan Discharge Clinical Impression: Acute urinary retention, Rene hematuria Patient Disposition: Admitted As Inpatient Print Language: Upper Sorbian
--- NOTE | 2024-07-23 03:39 | PC.NURSE ---
attempted to place 18fr coude medina catheter however large amounts of resistance met, only small amount of blood came out but no urine drained. then attempted 3 way catheter 22fr, still meeting large amounts of resistance w/ no urine output. attempted to manually irrigate but patient c/o increased pain/pressure. MD ghosh called to bedside for assessment. placed another 18fr coude catheter and was able to break through more clots. approx 400cc ouput mostly blood. unable to place 3 way catheter at this time, Dr ghosh reaching out to preparation room manager urologist.
[2024-07-23 03:52] LABS: Alkaline Phosphatase 58 U/L (39-117)
--- NOTE | 2024-07-23 07:04 | P.HPHOSP_ITS ---
History of Present Illness Date of Service: 07/23/24 Attending physician on admission: Kenroy Jackson Chief Complaint: gross heme, retention Pt is an 79 yo male with a pmhx significant for prostate cancer s/p radiation and prostatectomy, HTN, HLD and left lower extremity DVT on Eliquis, who presented to the ED due to gross hematuria x4 days, suprapubic pain and urinary retention. He reports he stopped his Eliquis 2 days ago due to the hematuria. Over the past few days his urinary retention has worsened. No urgency, frequency or dysuria. He denies any fever, chills, nausea or vomiting. He does have a history of gross hematuria requiring a CBI in the past. Review of Systems 2 Constitutional: Constitutional: Denies chills, Denies fatigue, Denies fever(s) and Denies headache(s) Eyes: Eyes: Denies change in vision and Denies photophobia ENT: Denies headache(s), Denies nasal congestion, Denies nasal discharge and Denies sore throat Cardiovascular: Cardiovascular: Denies chest pain, Denies rapid heart rate, Denies leg edema, Denies lightheadedness and Denies dyspnea Respiratory: Respiratory: Denies chest congestion, Denies cough, Denies dyspnea and Denies wheezing Gastrointestinal: Gastrointestinal: Denies diarrhea, Denies nausea and Denies vomiting Genitourinary: Genitourinary: Reports as per HPI Musculoskeletal: Musculoskeletal: Denies myalgias Integumentary/Breasts: Skin/Breast: Denies rash Neurologic: Denies confusion and Denies headache(s) Psychiatric: Psychiatric: Denies confusion Endocrine: Endocrine: Denies fatigue Hematologic/Lymphatic: Hematologic/Lymphatic: Denies easy bleeding and Denies easy bruising Allergic/Immunologic: Allergic/Immunologic: Denies wheezing [facility] Medical History Radiation cystitis Hypertension Diverticulosis Overweight (BMI 25.0-29.9) History of prostate cancer Renal cyst Vitamin D deficiency Osteoarthritis of left knee Impaired fasting glucose Pure hypercholesterolemia Benign essential hypertension Functional capacity: independent ambulation Family History Father Cancer Mother Colon cancer Surgical History Hx of right inguinal hernia repair (02/16/23) History of ankle surgery History of colonoscopy History of meniscectomy of left knee (~06/05/12) Hx of prostatectomy Hx of umbilical hernia repair Social History Household Members: Spouse Housing: House Are you a primary resident care technician to a significant other at home: No Do you presently have visiting nurse or other home services: No Alcohol intake: current Alcohol intake frequency: 0-2 drinks per day Alcohol type: beer Comment: . 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 Two beers per day, not currently drinking due to Xspand Allergies Allergy/AdvReac Type Severity Reaction Status Date / Time No Known Allergies Allergy Verified 07/23/24 01:59 Home Medications ?Medication ?Instructions ?Recorded ?Confirmed ?Last Taken ?Type cholecalciferol (vitamin D3) 10 10 mcg PO DAILY 06/01/20 03/21/24 12/18/23 History mcg (400 unit) tablet multivitamin 1 tab PO DAILY 06/01/20 03/21/24 12/18/23 History ascorbic acid (vitamin C) 500 mg 500 mg PO DAILY 12/08/21 03/21/24 12/18/23 History tablet (Vitamin C) ferrous sulfate 142 mg (45 mg 142 mg PO DAILY 12/18/23 03/21/24 12/18/23 History iron) tablet,extended release Physical Exam 2 Vital Signs and Narrative: Vital Signs: Last Vital Signs Temp 98.1 F 07/23/24 01:58 Pulse 109 H 07/23/24 01:58 Resp 20 07/23/24 01:58 BP 147/71 H 07/23/24 01:58 Pulse Ox 99 07/23/24 01:58 O2 Del Method Room Air 07/23/24 01:58 BMI result Body Mass Index 25.1 General: AOx3, no acute distress Resp: CTA bilaterally CVS: S1, S2, RRR GI: +BS, NT, no distention Skin: Warm, dry Neuro: Cranial nerves II-XII grossly intact bilaterally. Motor grossly intact bilaterally Extremities: No LE edema Psych: Appropriate affect Const: General: No confusion Orientation/consciousness: No confusion Eyes: Direct Ophthalmoscopy: No photophobia Neuro: General: No confusion Results Labs 07/23/24 02:11 07/23/24 02:11 Labs: Laboratory Results - last 24 hr 07/23/24 02:11 MCV 88.2 MCH 29.4 MCHC 33.3 RDW 12.9 Plt Count 263 D MPV 7.9 L Immature Gran % (Auto) 0.3 Neut % (Auto) 78.9 H Lymph % (Auto) 11.2 L [place] % (Auto) 9.1 Eos % (Auto) 0.4 Baso % (Auto) 0.1 Lymph # (Auto) 1.1 L [place] # (Auto) 0.9 Eos # (Auto) 0.0 Baso # (Auto) 0.0 Abs Immat Gran (auto) 0.03 Absolute Neuts (auto) 7.5 Absolute Nucleated RBC 0.000 Nucleated RBC % (auto) 0.0 Anion Gap 17 Estim Creat Clear Calc 48.2 Estimated GFR 57 Random Glucose 123 H Calcium 9.9 Total Bilirubin 0.3 AST 26 ALT 13 Alkaline Phosphatase 58 Total Protein 7.9 Albumin 3.8 Urine Color RED Urine Appearance Turbid Urine pH 6.5 Ur Specific [place] 1.025 Urine Protein 300 (3+) H Urine Glucose (UA) Negative Urine Ketones Trace Urine Blood Large (3+) H Urine Nitrite Negative Ur Leukocyte Esterase Moderate (2+) H Urine RBC >20 H Urine WBC 0-5 Ur Squamous Epith Cells 0-2 Urine Bacteria 1+ Hyaline Casts 0-2 Assessment and Plan (1) Urinary retention: Status: Acute (2) Rene hematuria: Status: Acute Plan Pt is an 79 yo male with a pmhx significant for prostate cancer s/p radiation and prostatectomy, HTN, HLD and left lower extremity DVT on Eliquis, who presented to the ED due to gross hematuria x4 days, suprapubic pain and urinary retention. urinary retention and gross hematuria. hx prostate cancer, radiation - UA negative for infection - difficult Morales placement in ED, coude drained 550 cc - hemoglobin 11.5, around baseline, no need for transfusion - urology consult, will need CBI HTN - continue home meds HLD - continue home meds history DVT left lower extremity - hold Eliquis due to gross hematuria full code VTE prophylaxis: pneumoboots patient with acute urinary retention and gross hematuria with a history of prostate cancer status post radiation and surgery, requiring admission for at least 2 midnights stay for CBI and Urology consultation. Quality Stroke Does the patient have a stroke diagnosis?: No VTE Prior VTE?: Yes VTE Risk Level:: Medical - moderate - high VTE Device Contraindication: N/A - Device Ordered VTE Drug Contraindication: Treatment Not Indicated
--- NOTE | 2024-07-23 08:31 | PC.NURSE ---
bladder scan obtained, 19mL in bladder. patient continues to report improvement, continues w/ hematuria. breakfast provided. urology at bedside
[2024-07-23 08:32] VITALS: BP 149/65; PULSE 80; RESP 16; TEMP 36.4; O2SAT 95
--- NOTE | 2024-07-23 08:33 | MHC.CM.ED ---
Attempted to meet with patient in regards to discharge planning. Dr Trevino currently assessing patient. Will attempt to meet again. Continue to monitor for d/c needs.
[2024-07-23] MEDS: 0.9 % Sodium Chloride Flush 3 ML SYRINGE IVFLUSH (08:56)
--- NOTE | 2024-07-23 09:24 | PHA.MEDREC ---
Pharmacy Consult ? Medication Reconciliation Pharmacy has completed the medication reconciliation, spoke to patient and at side who confirmed he is only taking amlodipine/benazepril and a bunch of vitamins , was able to confirm. Patient said he was told to stop eliquis and when asked about tolterodine, said he did not know what that was and it may have been temporary. Called [facility] and confirmed that rx was cancelled by the provider.
--- NOTE | 2024-07-23 10:08 | PM.EVENT ---
Event Note Date of Service: 07/24/24 Event Note: Day Team Follow up S seen and examined no new complaints O last documented nad medina with bloody urine A/P 79 yo M with history of prostate ca - s/p prostatectomy/radition with radiation cystitis (per pt report), DVT on Eliquis who presents with gross hematuria leading to acute blood loss anemia (present on admission), urinary retention and suprapubic pain seen by urology this AM -- d/w Dr. Trevino pt draining well with current catheter, recs to continue the same start home BP meds (hold JEANNETTE for now) Time Spent With Patient Time: Total time managing care of this patient today ____ minutes.
[2024-07-23 10:55] VITALS: BP 141/69
[2024-07-23] MEDS: amLODIPine Besylate 5 MG TABLET PO (10:55)
--- NOTE | 2024-07-23 11:57 | MHC.CM.PN ---
Met with patient and , Kary, in regards to discharge planning. Patient lives with Kary, ambulates independently and had no services prior to coming to the hospital. PCP verified. Copy believes he has a HCP at home and has been asked to obtain a copy. Patient typically still drives. IMM explained and signed. Patient's son will transport patient home when medically stable. If patient d/c's home with new medina, anticipate VNA will be needed. Continue to monitor for d/c needs.
[2024-07-23 17:56] VITALS: BP 154/66; PULSE 96; RESP 16; TEMP 36.7; O2SAT 95
--- NOTE | 2024-07-23 19:35 | PC.NURSE ---
Took over care from THADDEUS Martin at 19:00, pt resting in bed watching TV, denies any pain, 250cc of bloody urine emptied from medina, warm blanket given.
[2024-07-23 22:00] VITALS: BP 131/66; PULSE 97; RESP 18; TEMP 37.1; O2SAT 95
[2024-07-23 22:22] VITALS: BP 131/66; PULSE 97; RESP 18; TEMP 37.1; O2SAT 95
--- NOTE | 2024-07-24 01:16 | PC.NURSE ---
pt sleeping at this time not sign of distress.
[2024-07-24 05:21] LABS: MANUAL DIFF FLAG NO
[2024-07-24 05:25] LABS: Basophils Percent Auto 0.2 % (0-2); Eosinophils Absolute Auto 0.1 X10*3/uL (0.0-0.4); Eosinophils Percent Auto 1.1 % (0-4); Hematocrit 33.1 % (42.0-52.0); Hemoglobin 10.7 g/dl (14.0-18.0); Imm Gran Abs Auto 0.02 X10*3/uL (0.00-0.03); Imm Gran Pct Auto 0.2 % (0.0-0.4); Lymphocytes Percent Auto 12.2 % (20-40); Mean Corpuscular HGB Conc 32.3 g/dl (31.0-36.0); Mean Corpuscular Hemoglobin 28.8 pg (27.0-33.0); Monocytes Absolute Auto 0.8 X10*3/uL (0.1-1.2); Neutrophils Absolute Auto 6.2 x10*3/uL (2.0-8.3); Neutrophils Percent Auto 76.3 % (45-73); Platelet Count 274 X10*3/uL (160-400); Red Blood Count 3.72 X10*6/uL (4.60-5.80); Red Cell Distribution Width 12.7 % (11.0-16.0); White Blood Count 8.2 X10*3/uL (4.8-10.8)
[2024-07-24 05:40] LABS: Anion Gap 12 (12-20); Blood Urea Nitrogen 20 mg/dL (9-16); Calcium 9.3 mg/dL (8.4-10.2); Carbon Dioxide 24 mmol/L (22-29); Chloride 104 mmol/L (96-108); Creatinine Clr Calc Pharmacy 56.6; Estimated Glomerular Filt Rate > 60; Glucose Random 109 mg/dL (60-115); Potassium 4.4 mmol/L (3.3-5.1); Sodium 136 mmol/L (135-145)
[2024-07-24 05:49] VITALS: BP 112/61; PULSE 76; RESP 19; TEMP 36.6; O2SAT 97
[2024-07-24] MEDS: 0.9 % Sodium Chloride Flush 3 ML SYRINGE IVFLUSH ×2 (06:01→08:57)
[2024-07-24 07:55] VITALS: BP 140/69; PULSE 83; RESP 18; TEMP 36.9; O2SAT 96
[2024-07-24] MEDS: Ascorbic Acid 500 MG TABLET PO (08:56)
[2024-07-24] MEDS: Multivitamin TABLET 1 TAB PO (08:56)
[2024-07-24 08:57] VITALS: BP 140/69
[2024-07-24] MEDS: Cholecalciferol (Vitamin D3) 10 MCG TABLET PO (08:57)
[2024-07-24] MEDS: polyethylene glycoL 3350 17 GM POWD.PACK PO (08:57)
[2024-07-24] MEDS: amLODIPine Besylate 5 MG TABLET PO (08:57)
--- NOTE | 2024-07-24 11:36 | P.DS_ITS ---
DS: Providers Provider Date of Service: 07/24/24 Date of admission: 07/23/24 07:01 Date of discharge: 07/24/24 Primary care physician: Cade Enriquez MD Consults: 07/23/24 06:51 Consult to Urology Stat Consulting Provider: [facility] Reason for consultation: Urinary retention and gross hematuria Has provider been notified: Yes 07/23/24 07:01 Consult to Urology Routine Consulting Provider: [facility] Reason for consultation: retention, gross heme Has provider been notified: Yes DS: Diagnosis Discharge Diagnosis (1) Urinary retention: Status: Acute (2) Rene hematuria: Status: Acute DS: Summary Hospital Course Hospital Course: HPI from admission H&P Attending physician on admission: Kenroy Jackson Chief Complaint: gross heme, retention Pt is an 79 yo male with a pmhx significant for prostate cancer s/p radiation and prostatectomy, HTN, HLD and left lower extremity DVT on Eliquis, who presented to the ED due to gross hematuria x4 days, suprapubic pain and urinary retention. He reports he stopped his Eliquis 2 days ago due to the hematuria. Over the past few days his urinary retention has worsened. No urgency, frequency or dysuria. He denies any fever, chills, nausea or vomiting. He does have a history of gross hematuria requiring a CBI in the past. Hospital Course: Patient presented with gross hematuria likely due to a combination of Eliquis use for prior DVT as well as radiation cystitis from prior radiation due to prostate surgery. He had a difficult Medina catheter insertion but fortunately the patient's urinary retention and hematuria resolved on its own. Urology was consulted for possible CBI but given that the patient's symptoms were resolving this was not required. The patient did have acute blood loss anemia which was present on admission and secondary to gross hematuria. His H&H remained above transfusion threshold. The patient was empirically treated IV ceftriaxone given his acute bleed. His urine culture is growing Gram-negative rods with final results pending. However, the patient is eager to be discharged and does not have any evidence of prior resistant organisms in his urine, hence he will be discharged home with a 7 day course cefuroxime. The patient is to keep his Medina catheter in place and is to follow up with Urology week's time for consideration of removal. He is to remain off his Eliquis until evaluated in the Urology office. VNA services will be arranged. Final discharge diagnoses 1. Gross hematuria due to radiation cystitis as well as chronic anticoagulation use 2. Acute blood loss anemia, due to gross hematuria 3. Gram-negative rods urinary tract infection, likely Klebsiella based on past urine results 4. Prior history of DVT, on chronic anticoagulation 5. Prior history of prostate cancer status post prostatectomy and radiation 6. Hyperlipidemia 7. Hypertension Time Attestation Discharge Coordination Time (in mins): 40 Quality: Safe Use of Opioids Does Pt have an Active Cancer Diagnosis on the Problem List?: No Quality: Stroke Does the patient have a stroke diagnosis?: No Physical Exam Vital Signs: Vital Signs: Last Vital Signs Temp 98.4 F 07/24/24 07:55 Pulse 83 07/24/24 07:55 Resp 18 07/24/24 07:55 BP 140/69 H 07/24/24 08:57 Pulse Ox 96 07/24/24 07:55 O2 Del Method Room Air 07/24/24 07:55 BMI result Body Mass Index 25.1 Const: Other: General - no acute distress, appears comfortable Cardiovascular - regular rate and rhythm, S1-S2 Lungs - normal respiratory effort, clear to auscultation bilaterally, no wheezing Abdomen - soft, nontender, no rebound or guarding -- medina with non-bloody urine Extremities - no edema bilaterally Neuro - awake and alert, no focal deficits DS: Data Data Completed and Pending Completed studies during hospitalization [Text1]: Procedures Dilation of Bladder Neck with Intraluminal Device, Via Natural or Artificial Opening Endoscopic (12/18/23) Drainage of Right Pleural Cavity, Percutaneous Approach (12/18/23) Fluoroscopy of Right Kidney, Ureter and Bladder (12/18/23) Insertion of Intraluminal Device into Inferior Vena Cava, Percutaneous Approach (12/08/21) Labs on day of discharge: Laboratory Results - last 24 hr 07/24/24 03:48 WBC 8.2 RBC 3.72 L Hgb 10.7 L Hct 33.1 L MCV 89.0 MCH 28.8 MCHC 32.3 RDW 12.7 Plt Count 274 MPV 8.0 L Immature Gran % (Auto) 0.2 Neut % (Auto) 76.3 H Lymph % (Auto) 12.[address] [place] % (Auto) 10.0 Eos % (Auto) 1.1 Baso % (Auto) 0.2 Lymph # (Auto) 1.[address] [place] # (Auto) 0.8 Eos # (Auto) 0.1 Baso # (Auto) 0.0 Abs Immat Gran (auto) 0.02 Absolute Neuts (auto) 6.2 Absolute Nucleated RBC 0.000 Nucleated RBC % (auto) 0.0 Sodium 136 Potassium 4.4 Chloride 104 Carbon Dioxide 24 Anion Gap 12 BUN 20 H Creatinine 1.04 Estim Creat Clear Calc 56.6 Estimated GFR > 60 Random Glucose 109 Calcium 9.3 D Preliminary micro results at discharge 07/23/24 Unknown Urine Culture - Preliminary Urine clean catch - Clean Catch Midstream Gram negative lesly Discharge Plan Discharge Anticipated Discharge Date/Time: 07/24/24 01:30 Patient Disposition: Home Health Service Discharge Diagnosis: Hematuria Referrals: Cade Enriquez MD [Primary Care Provider] - 1 Week Discharge Medications: New cefuroxime axetil 500 mg tablet 500 mg PO BID Qty: 14 0RF Continued amlodipine-benazepril 5-40 mg capsule 1 cap PO DAILY 90 Days Qty: 90 3RF polyethylene glycol 3350 [Miralax] 17 gram/dose powder 17 g PO DAILY Qty: 510 3RF ascorbic acid (vitamin C) [Vitamin C] 500 mg Tablet 500 mg PO DAILY cholecalciferol (vitamin D3) 10 mcg (400 unit) tablet 10 mcg PO DAILY multivitamin Tablet 1 tab PO DAILY vitamin E (dl, acetate) 450 mg (1,000 unit) capsule 450 mg PO DAILY Qty: 90 1RF Discharge Orders: Discharge Order (Routine); Ordered 07/24/24 Ordered By: Tre Diaz Diet: Advance to usual diet Activity on Discharge: As tolerated Stand Alone Forms: Patient Portal Discharge page Print Language: Maori Care Plan Goals: Continue with Medina catheter Follow up with Dr. Trevino in 1 week Finish course of antibiotics Hold your Eliquis until seen by Dr. Trevino Health Concerns: see d/c summary Plan of Treatment: see d/c summary Assessment: see d/c summary
--- NOTE | 2024-07-24 11:57 | W.MHC.F2F ---
Service Date Service Date: 07/24/24 Encounter Date of encounter: 07/24/24 Reasons for Services Signs and symptoms assessed: assessment -- going home with medina cath. To follow up with urology in 1 week for likely removal Reason for alf: GI/ assessment MD Overseeing Care: Cade Enriquez Homebound: Leaving the home is medically contraindicated at this time without the asist of a device and/or another person due th the listed conditions above and below. Reason homebound: other (Fall risk with medina cath in place) Certification: Based on the above findings, I certify that this patient is confined to the home and needs intermittent alf care, physical therapy and/or speech therapy, or continues to need occupational therapy. The patient is under my care, and I have initiated the establishment of the plan of care. The patient will be followed by a physician who will periodically review the plan of care. Time Spent With Patient Time: Total time managing care of this patient today ____ minutes.
[2024-07-24] MEDS: cefTRIAXone sodium 1 GM VIAL IVPUSH (12:23)
[2024-07-24 16:50] VITALS: BP 140/69; PULSE 83; RESP 18; TEMP 36.9; O2SAT 96
== END 2024-07-24 16:56 | disposition home health service (06) | DRG 699 ==
LOC: HO.ED 06:09 → HO.EDOVER 07:26
PROVIDERS: Admitting Provider Physician Assistant; Emergency Provider Emergency Medicine; PCP Internal Medicine; Visit Provider Family Medicine
DX: N30.41 Irradiation cystitis with hematuria (principal); D62 Acute posthemorrhagic anemia; D68.32 Hemorrhagic disorder due to extrinsic circulating anticoagulants; Z85.46 Personal history of malignant neoplasm of prostate; R33.9 Retention of urine, unspecified; I10 Essential (primary) hypertension; E78.5 Hyperlipidemia, unspecified; R31.0 Gross hematuria; T45.515A Adverse effect of anticoagulants, initial encounter; Z90.79 Acquired absence of other genital organ(s); Z86.718 Personal history of other venous thrombosis and embolism; Z79.01 Long term (current) use of anticoagulants; Z79.899 Other long term (current) drug therapy
CPT/HCPCS: 36415; 80048; 80053; 81001; 85025; 87086; 87088; 87186; 99285; J0696

== ENCOUNTER → 2024-07-23 07:01 | Outpatient (BNV) | payer MEDICARE, SELFPAY | PROVIDERS: Admitting Provider Physician Assistant; Emergency Provider Emergency Medicine; PCP Internal Medicine; Visit Provider Family Medicine | DX: R33.9 Retention of urine, unspecified (principal); R31.0 Gross hematuria | CPT/HCPCS: 99223; 99239; 99499; G0180 ==

== ENCOUNTER 2024-08-01 14:25 | Outpatient (AMB) | payer MEDICARE, SELFPAY ==
[2024-08-01 14:35] VITALS: BP 160/78; PULSE 98; RESP 20; TEMP 36.5; O2SAT 99; BMI 24.9
--- NOTE | 2024-08-01 14:35 | MHC.PC.OV ---
Vital Signs 08/01/24 14:35 Height 5 ft 9 in Weight 168 lb 12.8 oz BMI 24.9 BP 160/78 H Blood Pressure Location Lt brachial Position Sitting Respiration 20 Pulse 98 Pulse Source Pulse Oximeter Temp 97.7 F Temp Source Oral Pulse Oximetry (%) 99 Oxygen Delivery Method Room Air Intake Visit Reasons: [facility] 07/23 gross hematuria retention Intake Note: Patient is here for hospital discharge follow up. Patient was discharged from [facility] in [facility] on 07/23/2024. [employer]ension [employer] Worker Required: No Accompanied by: Self / Same As Patient Allergies No Known Allergies Allergy (Verified 08/01/24 14:51) Medication List - Last Reconciled 08/01/24 by PA Miguel amlodipine-benazepril 5-40 mg 1 cap PO DAILY 90 days ascorbic acid (vitamin C) (Vitamin C) 500 mg PO DAILY cholecalciferol (vitamin D3) 10 mcg PO DAILY multivitamin 1 tab PO DAILY polyethylene glycol 3350 (Miralax) 17 grams PO DAILY vitamin E (dl, acetate) 450 mg PO DAILY Tobacco use date assessed: 08/01/24 Fall risk assessment: No Falls in past year Last assessed Fall Risk: 08/01/24 Dental Screening Dental Screen Date: 08/01/24 Did you have a dental visit in the last 12 months?: No Did you have a dental problem in the last 6 months where you did not have access to dental care?: No Was dental information given to patient?: No HPI [facility] 07/23 gross hematuria retention HPI Details The patient is a 79-year-old male with past medical history of prostate cancer status post radiation and prostatectomy, HTN, HLD and left lower extremity DVT on Eliquis. Patient is presenting for post [facility] ED visit due to gross hematuria x4 days, suprapubic pain and urinary retention. Medina catheter was placed and Urology was consulted for possible CBI, which was not required due to the patient's symptoms started resolving on its own. The patient noted to have acute blood loss anemia but was above transfusion threshold. The patient was treated empirically with IV ceftriaxone. Urine culture noted growing Gram-negative rods, so the patient was discharged home with a 7 day course of cefuroxime. Medina catheter was left in placed and he is to follow up with Urology for consideration of removal. Eliquis is to remained held until evaluated by Urology. Today's visit:The patient is presenting with concerns of insomnia and hemorrhoids exacerbated by diarrhea. The patient has noted episodes of diarrhea following the use of antibiotics, which has worsened pre-existing hemorrhoids, resulting in significant pain. The hemorrhoids were previously identified during a colonoscopy over two years ago. He reports past constipation which might have contributed to the hemorrhoids, with bowel movements being altered in shape, possibly due to hemorrhoidal obstruction. The patient has a history of left femoral DVT for which anticoagulation with Eliquis was in place but was discontinued due to hematuria episodes. The hematuria ceased following catheterization. However, bladder spasms and catheter-related urinary urgency remain concerns. In terms of insomnia, the patient experiences protracted periods of wakefulness, getting minimal restful sleep despite attempts to use melatonin. [facility] Medical History Urinary retention Rene hematuria Acute urinary retention Radiation cystitis Hypertension Diverticulosis Overweight (BMI 25.0-29.9) History of prostate cancer Renal cyst Vitamin D deficiency Osteoarthritis of left knee Impaired fasting glucose Pure hypercholesterolemia Benign essential hypertension Surgical History Hx of right inguinal hernia repair (02/16/23) History of ankle surgery History of colonoscopy History of meniscectomy of left knee (~06/05/12) Hx of prostatectomy Hx of umbilical hernia repair Family History Father Cancer Mother Colon cancer Social History Household Members: Spouse Housing: House Are you a primary critical care nurse practitioner to a significant other at home: No Do you presently have visiting nurse or other home services: No Alcohol intake: current Alcohol intake frequency: 0-2 drinks per day Alcohol type: beer Comment: . 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 Cognitive needs: No Hearing needs: No Vision needs: Yes (Glasses) Questionnaire Thrive Questionnaire Date Thrive assessed: 08/01/24 I am a: Patient What is your living situation today?: I have a steady place to live Within the past 12 months, did the food you bought not last and you didn't have the money to get more?: Never true Within the past 12 months, did you worry whether your food would run out before you got money to buy more?: Never true Do you have trouble paying for medicines?: No Do you have trouble getting transportation to medical appointments?: No Do you have trouble paying your heating and electricity bill?: No Do you have trouble taking care of your child, family member or friend?: No Do you have trouble with day-to-day activities such as bathing, preparing meals, shopping, managing finances, etc.?: No Are you currently unemployed and looking for a job?: No Are you interested in more education?: No Please select the resources that you would like help with: None Currently or been in a relationship where the following occur: No concerns reported THRIVE Score: 0 AUDIT C Alcohol Use Questionnaire (AUDIT-C) 1. How often do you have a drink containing alcohol?: 4 or more times a week 2. How many drinks containing alcohol do you have on a typical day when you are drinking?: 1 or 2 3. How often do you have six or more drinks on one occasion?: Never Total Score: 4 Score Reviewed/Action Taken: Yes ROSAMARIA-7 AMB Questionnaire ROSAMARIA-7 Date ROSAMARIA - 7 assessed: 03/21/24 Source: Developed by Drs. Jean Resendez, Larisa Alonzo, Jaspal Boyce and colleagues, with an educational cheryl from [employer]. Review of Systems Const Denies headache(s) and Reports other (Insomnia) Eyes Denies loss of vision ENT Denies vertigo, Denies dizziness, Denies headache(s) and Denies sore throat Card Denies chest pain, Denies leg edema and Denies lightheadedness Resp Denies cough, Denies hemoptysis and Denies wheezing GI Denies abdominal pain, Denies melena, Reports change in stool character (Flatten stools), Reports constipation (Chronic), Reports diarrhea (Antibiotics related), Denies vomiting and Reports other (Anal pain) Reports hematuria (Past-resolved), Denies dysuria, Denies urinary frequency, Reports urinary urgency (Catheter-related) and Reports other (Urinary catheter, bladder spasms) Musc Denies arthralgias, Denies joint swelling, Denies numbness and Denies tingling Neuro Denies Abnormal speech present, Denies behavioral changes, Denies vertigo, Denies dizziness, Denies headache(s), Denies loss of vision, Denies memory loss, Denies numbness, Denies tingling and Reports other (Insomnia) Psych Denies anxiety, Denies behavioral changes, Denies depression, Denies memory loss and Denies panic attacks Jackson/Lymph Denies easy bleeding and Denies easy bruising Aller/Immun Denies wheezing Physical exam (Primary Care) Vital Signs: Last Vital Signs Temp 97.7 F 08/01/24 14:35 Pulse 98 08/01/24 14:35 Resp 20 08/01/24 14:35 BP 160/78 H 08/01/24 14:35 Pulse Ox 99 08/01/24 14:35 Oxygen Delivery Method Room Air 08/01/24 14:35 BMI result Body Mass Index 24.9 Tobacco/Smoking Status: Tobacco use Status Tobacco use date assessed 08/01/24 08/01/24 14:44 Patient Tobacco Use Status Never used Tobacco 08/01/24 14:44 e-Cigarette/Vaping Use Never Used 08/01/24 14:44 Thrive Assessment: Date of Thrive Assessment Date Thrive assessed 08/01/24 08/01/24 14:44 Currently or been in a relationship where the following occur: No concerns reported Const General: healthy appearing, no acute distress, alert and awake Nutritional Appearance: well nourished Orientation/consciousness: oriented to person, oriented to place and oriented to time HENIN Ears: external ears normal General nose exam: Normal external nose present Eyes Conjunctivae: conjunctivae normal Sclerae: sclerae normal Pupils: Equal, round and reactive pupils present Neck Neck: Yes no lymphadenopathy and Yes no JVD Thyroid: Thyroid normal Carotids: no bruits Resp Effort & Inspection: normal respiratory effort and not tachypneic Auscultation: no crackles, no rales, no rhonchi and no wheezes Cardio Rate: regular rate Rhythm: regular rhythm Heart sounds: no murmurs and normal S1 and S2 GI Palpation (GI): Soft to palpation, nontender, no hepatomegaly and no splenomegaly Auscultation: normal bowel sounds General: Yes no CVA tenderness Penis: other (Medina catheter in place-with yellow urine) Back/Spine/Pelvis Back: no CVA tenderness Skin General skin exam: no rashes or lesions noted and dry skin Neuro General: oriented to person, oriented to place and oriented to time Cranial nerves: Yes Equal, round and reactive pupils present Speech: No Abnormal speech present Gait exam (Neuro): Normal gait present Motor exam (neuro): no tremor noted Extrem Right lower extremity: full ROM; no edema Left lower extremity: full ROM; no edema Psych Mental Status: mental status grossly normal Speech and movement: Normal speech and movement present Affect: normal affect Attitude: cooperative Thought process: Normal thought process present Coding Level of Care Code Est Pt Level 4 (30990) Diagnoses Hematuria, unspecified type R31.9 Hematuria type: unspecified type Urinary urgency R39.15 Insomnia, unspecified type G47.00 Insomnia type: unspecified Hemorrhoids, unspecified hemorrhoid type K64.9 Hemorrhoid type: unspecified Benign essential hypertension I10 Time Spent (min) 41 Assessment & Plan Assessment & Plan (1) Hematuria: Code(s): R31.9 - Hematuria, unspecified Category: Medical Qualifiers: Hematuria type: unspecified type Qualified Code(s): R31.9 - Hematuria, unspecified (2) Urinary urgency: Code(s): R39.15 - Urgency of urination Category: Medical (3) Insomnia: Code(s): G47.00 - Insomnia, unspecified Category: Medical Qualifiers: Insomnia type: unspecified Qualified Code(s): G47.00 - Insomnia, unspecified (4) Hemorrhoids: Code(s): K64.9 - Unspecified hemorrhoids Category: Medical Qualifiers: Hemorrhoid type: unspecified Qualified Code(s): K64.9 - Unspecified hemorrhoids (5) Benign essential hypertension: Code(s): I10 - Essential (primary) hypertension Category: Medical Plan I advised using psyllium fiber and increasing fluid intake to assist in regulating bowel movements and mitigating hemorrhoid discomfort. Preparation H suppositories are recommended following bowel movements for hemorrhoidal relief, while trazodone 50 mg at bedtime has been prescribed to address insomnia. Blood pressure monitoring will be emphasized to reduce hemorrhagic risks. The patient is elevated in office, mostly due to the pain from the medina catheter, the patient reports that he cannot get comfortable. The patient will continue hydrating, potentially with limited electrolyte supplementation due to recent diarrheal episodes. The urinary catheter, associated urgency, and symptoms should improve with careful management, awaiting the upcoming urology appointment for possible catheter removal. Post-procedure antispasmodic use will be reconsidered pending urological intervention. Patient was informed and verbally consented to the use of an ambient scribe for clinic note documentation during this visit. Medications: New trazodone 50 mg PO BEDTIME PRN 30 tabs 1RF sleep G47.00 - Insomnia, unspecified Patient Instructions: - Continue taking psyllium fiber and drink plenty of fluids to help with bowel regularity. - Use Preparation H suppositories after each bowel movement as needed for hemorrhoid relief. - Take trazodone 50 mg at bedtime to help with sleep. - Keep monitoring your blood pressure to prevent excessive bleeding. - Consider drinking a small amount of sports drinks for electrolytes while you have symptoms of diarrhea. - Be careful with your urinary catheter, and plan for its removal at your urology appointment. - Stay hydrated, but if experiencing bladder spasms, inform your physician. - Be aware of any new or worsening symptoms and contact the office if needed. - Follow up with your urologist as planned.
== END 2024-08-01 15:47 | disposition home or self-care (01) ==
LOC: HO.HMCH 14:26
PROVIDERS: PCP Internal Medicine
DX: R31.9 Hematuria, unspecified (principal); R39.15 Urgency of urination; G47.00 Insomnia, unspecified; K64.9 Unspecified hemorrhoids; I10 Essential (primary) hypertension

== ENCOUNTER → 2024-08-01 14:25 | Outpatient (BNVA) | payer MEDICARE, SELFPAY | PROVIDERS: PCP Internal Medicine | DX: R31.9 Hematuria, unspecified (principal); R39.15 Urgency of urination; G47.00 Insomnia, unspecified; K64.9 Unspecified hemorrhoids; I10 Essential (primary) hypertension | CPT/HCPCS: 99212 ==

== ENCOUNTER → 2024-08-07 08:52 | Outpatient (BNVA) | payer MEDICARE, SELFPAY | PROVIDERS: PCP Internal Medicine; Visit Provider Urology | DX: C61 Malignant neoplasm of prostate (principal) | CPT/HCPCS: 51700; 51798 ==

== ENCOUNTER 2024-08-12 08:28 | Outpatient (REF) | payer MEDICARE, SELFPAY ==
[2024-08-12 09:27] LABS: Appearance Urine Cloudy; Color Urine Orange; Glucose Urine UA Negative (Negative); Leukocyte Esterase Urine Moderate (2+) (Negative); Nitrite Urine Negative (Negative); Specific Gravity - Urine 1.015 (1.005-1.025); UMIC TRIGGER UA YES; Urine Blood Large (3+) (Negative); Urine Ketones Trace mg/dL (Negative); Urine Protein 100 (2+) mg/dL (Neg-Trace)
[2024-08-12 09:41] LABS: Bacteria Urine 4+ (None Seen); RBC Urine >20 /HPF (0-2); Squamous Epithelial Cell Urine 0-2 /HPF (0-2); WBC Clumps Urine Present; WBC Urine >50 /HPF (0-5)
== END 2024-08-12 08:29 | disposition home or self-care (01) ==
LOC: HO.LAB 08:28
PROVIDERS: PCP Internal Medicine; Visit Provider Urology
DX: R39.15 Urgency of urination (principal)
CPT/HCPCS: 81001; 87086; 87088; 87186

== ENCOUNTER 2024-08-30 10:13 | Outpatient (REF) | payer MEDICARE, SELFPAY ==
[2024-08-30 12:00] LABS: Appearance Urine Cloudy; Color Urine Yellow; Glucose Urine UA Negative (Negative); Leukocyte Esterase Urine Large (3+) (Negative); Nitrite Urine Negative (Negative); Specific Gravity - Urine 1.015 (1.005-1.025); UMIC TRIGGER UA YES; Urine Blood Large (3+) (Negative); Urine Ketones Negative (Negative); Urine Protein Trace mg/dL (Neg-Trace)
[2024-08-30 12:08] LABS: Bacteria Urine Trace (None Seen); Hyaline Casts Urine 0-2 /LPF (0-2); RBC Urine >20 /HPF (0-2); Squamous Epithelial Cell Urine 0-2 /HPF (0-2); WBC Urine >50 /HPF (0-5)
== END 2024-08-30 10:14 | disposition home or self-care (01) ==
LOC: HO.LAB 10:13
PROVIDERS: PCP Internal Medicine; Visit Provider Urology
DX: N30.40 Irradiation cystitis without hematuria (principal); R39.15 Urgency of urination
CPT/HCPCS: 81001; 87086

== ENCOUNTER → 2024-09-03 11:35 | Outpatient (BNVA) | payer MEDICARE, SELFPAY | PROVIDERS: PCP Internal Medicine; Visit Provider Urology | DX: Z13.89 Encounter for screening for other disorder (principal) ==

== ENCOUNTER 2024-09-03 12:21 | Inpatient (IN) | payer MEDICARE, SELFPAY ==
[2024-09-03] VITALS (12 sets, daily range): BP systolic 75–146; BP diastolic 50–74; PULSE 86–107; RESP 16–22; TEMP 36.3–37.2; O2SAT 95–100; BMI 21.7
--- NOTE | ~2024-09-03 | NM_ITS ---
EXAMINATION: NM LUNG PERFUSION HISTORY: tachycardia. TECHNIQUE: A pulmonary perfusion scan was performed following intravenous administration of 4.0 mCi technetium 99m-MAA. Images were obtained in multiple projections. COMPARISON: Correlation is made with a chest x-ray performed the same day. FINDINGS: There are nonsegmental perfusion defects bilaterally compatible with the patient's arms, which were positioned at his side. There is a subsegmental perfusion defect involving the anterior segment of the right upper lobe. Additional tiny subsegmental defects are noted bilaterally. No segmental perfusion defects are identified. Findings are consistent with a very low probability for pulmonary emboli. NM/NM pul perfusion IMPRESSION: Very low probability for pulmonary emboli. Electronically signed by: Jean Solis MD 09/10/2024 01:20 PM EDT
--- NOTE | ~2024-09-03 | XR_ITS ---
EXAMINATION: XR CHEST CLINICAL INFORMATION: weakness COMPARISON: December 29, 2023. TECHNIQUE: Frontal view of the chest was obtained. FINDINGS: No consolidation, pleural effusion or pneumothorax. Cardiomediastinal silhouette size is normal. Multilevel thoracic spondylosis. Degenerative changes in the acromioclavicular joints. XR/XR chest 1V IMPRESSION: No acute airspace disease. Electronically signed by: Zoran Sibley MD 09/03/2024 01:36 PM EDT
--- NOTE | ~2024-09-03 | XR_ITS ---
EXAMINATION: XR CHEST CLINICAL INFORMATION: for Vq scan COMPARISON: 09/03/2024. TECHNIQUE: Frontal view of the chest was obtained. FINDINGS: The cardiac, hilar, and mediastinal contours are normal. The lungs are clear bilaterally. Skin folds overlying the right lung. No pneumothorax or effusion. No focal osseous or soft tissue abnormality. XR/XR chest 1V IMPRESSION: No active pulmonary disease. Electronically signed by: Avi Luz MD 09/10/2024 02:06 PM EDT
--- NOTE | ~2024-09-03 | CT_ITS ---
EXAMINATION: CT ABDOMEN PELVIS WITHOUT IV CONTRAST HISTORY: hypercalcemia, ? mets COMPARISON: Comparison is made with the prior examination dated 02/22/2024. TECHNIQUE: CT scan of the abdomen and pelvis was performed without contrast using standard departmental protocol. Coronal and sagittal reformatted images were generated and reviewed. Oral contrast material was not administered at the request of the referring physician. This CT exam was performed with one or more of the following dose reduction techniques: automated exposure control, adjustment of the mA and/or kV according to patient size, use of iterative reconstruction technique. DLP: 488 mGy-cm FINDINGS: LOWER CHEST: There are nodules at the lung bases measuring up to 1.9 cm on the right and 1.9 cm on the left. There is no pleural effusion. CARDIOVASCULATURE: The heart is normal in size. There is no pericardial effusion. LIVER: The liver is normal in size and contour. There is a probable 10 mm cyst in the left lobe. GALLBLADDER / BILE DUCTS: The gallbladder is unremarkable. There is no intra or extrahepatic biliary ductal dilatation. SPLEEN: The spleen is normal in size and has an unremarkable unenhanced appearance. PANCREAS: The pancreas has an unremarkable unenhanced appearance. ADRENAL GLANDS: Unremarkable. KIDNEYS/RETROPERITONEUM: There is marked right renal cortical thinning and severe hydronephrosis as seen previously. Multiple cysts are noted. There is a solid mass at the lower pole measuring 7.0 cm in size. The left kidney demonstrates moderate to severe hydronephrosis. LYMPH NODES: There are conglomerate masses in the para-aortic region, consistent with lymphadenopathy. These measure over 12 cm in aggregate. There is an enlarged 4.1 cm right inguinal lymph node. VASCULATURE: The abdominal aorta demonstrates atherosclerotic calcification, but is normal in caliber. MESENTERY/PERITONEUM: Multiple masses are seen in the mesentery and omentum measuring up to 3.1 cm in size. No ascites is identified. There is no free intraperitoneal gas. STOMACH: The stomach is collapsed, limiting evaluation. SMALL BOWEL: The small bowel is normal in caliber. COLON: There is diverticulosis of the colon, without evidence of diverticulitis. APPENDIX: Normal. URINARY BLADDER/PELVIC ORGANS: There is no wall thickening of the right anterolateral aspect of the urinary bladder. There is a soft tissue mass which appears to be arising from the prostate measuring at least 21.4 x 10.4 x 10.6 cm. Confluent with the above described para-aortic lymphadenopathy. BONES / SOFT TISSUES: There is mild degenerative disc disease of the spine. CT/CT abdomen pelvis wo IV con IMPRESSION: 1. Soft tissue mass which appears to be arising from the prostate measuring at least 21.4 x 10.4 x 10.6 cm. This is confluent with conglomerate para-aortic lymphadenopathy. 2. Moderate to severe bilateral hydronephrosis secondary to the above-described masses. Soft tissue masses also involve the right kidney which again demonstrates severe cortical thinning. 3. Pulmonary metastatic disease. 4. Mesenteric masses and right inguinal lymphadenopathy. Electronically signed by: Jean Solsi MD 09/04/2024 02:11 PM EDT
--- NOTE | ~2024-09-03 | CT_ITS ---
PROCEDURES: 1. Limited preprocedure CT of the abdomen. Permanent images saved in PACS. 2. CT-guided biopsy of retroperitoneal mass CLINICIANS: Dominick Moore NP MEDICATIONS: -Versed, Fentanyl and lidocaine 1% 10 mL SQ -Antibiotics: None -For additional details, please see nursing flowsheet. COMPLICATIONS: None ESTIMATED BLOOD LOSS: < 5 ml CONTRAST: None SPECIMENS: 3 x 18 g cores were placed in saline MODERATE SEDATION TIME: 25 min PROCEDURE NOTE: The procedure, risks, benefits, and alternatives were carefully explained and written informed consent was obtained. The patient was placed prone on the CT table. A timeout was performed. A limited CT of the abdomen was performed to localize the retroperitoneal mass and choose appropriate needle entry and trajectory. The patient was prepped and draped in usual sterile fashion. A right lower back approach was selected and a site was marked. The skin and deeper soft tissues were anesthetized with lidocaine. Under CT guidance, a 17 gague trocar needle was advanced to the right retroperitoneal mass. An 18 gauge biopsy device was inserted through the trocar needle advanced into the mass. A total of 8 18 gauge cores performed. The specimen was placed in formalin. The needle was removed. A dry dressing was applied and secured with Tegaderm. There were no immediate complications. The patient was stable after the procedure and was transferred to the post anesthesia care unit. The procedure was done under moderate sedation with a dedicated nurse for monitoring of vital signs. CT/CT biopsy abdomen percutaneous Impression: CT-guided biopsy of retroperitoneal mass This procedure was performed by Dominick Moore NP and supervised by Charles Flynn M.D.. Electronically signed by: Charles Flynn MD 09/06/2024 03:05 PM EDT
--- NOTE | ~2024-09-03 | CT_ITS ---
CLINICAL HISTORY: hypercalcemia, ? mets CT chest without contrast Comparison: CT/SR - CT CHEST WO IV CON - 12/18/23 14:53 EDT Findings: There is no cardiomegaly. There is severe atherosclerotic disease of the coronary arteries. No significant mediastinal adenopathy. The thyroid gland is mildly heterogeneous, nonspecific. There are several new variable-sized lung lesions, the largest on the left anteriorly at the left base measuring up to 2 cm. The largest on the right is noted within the right lower lobe on axial 120 measuring up to 2.1 cm. There are innumerable smaller nodules bilaterally. Additionally there is a focus of tree-in-bud density within the apical segment of the left lower lobe, axial images 50 3-56. No effusion. No pneumothorax. No destructive bone lesion. The visualized upper abdomen demonstrates questioned ill-defined hepatic lesion posteriorly on image 132. Nonspecific nodularity in the suprarenal region on the right. Impression: Innumerable new lung lesions concerning for metastatic disease. See details above. Questioned liver lesion. This document has been electronically signed by: Stephen Abebe MD on 09/04/2024 13:47:50
--- NOTE | 2024-09-03 12:30 | ED.GENADULT ---
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 Recently had indwelling urinary catheter for retention/clots, but has since been removed. Patient reports weak urinary stream since. Daughter states that his urine was recently tested for infection and was negative but that his urine is also being sent to [place] to test for bacteria they are unable to test for here. Patient reports dark stools but states he takes iron supplements so attributed it to that. Denies chest pain, palpitations. Some shortness of breath worse with exertion. Denies abdominal pain, vomiting, diarrhea. Denies fevers. Reports 30# weight loss over 5 mos. Daughter states patient had great difficulty getting from the house into the car, then from the car into the hospital today. MD complaint: weakness Onset (ago): week(s) Related Data Home Medications ?Medication ?Instructions ?Recorded ?Confirmed cholecalciferol (vitamin D3) 10 10 mcg PO DAILY 06/01/20 08/01/24 mcg (400 unit) tablet multivitamin 1 tab PO DAILY 06/01/20 08/01/24 ascorbic acid (vitamin C) 500 mg 500 mg PO DAILY 12/08/21 08/01/24 tablet (Vitamin C) Previous Rx's ?Medication ?Instructions ?Recorded vitamin E (dl, acetate) 450 mg 450 mg PO DAILY #90 caps 06/17/20 (1,000 unit) capsule amlodipine 5 mg-benazepril 40 mg 1 cap PO DAILY 90 days #90 caps 05/26/23 capsule polyethylene glycol 3350 17 17 g PO DAILY constipation #510 07/08/24 gram/dose oral powder (Miralax) grams sennosides 8.6 mg-docusate sodium 1 tab-cap PO BID PRN constipation 08/09/24 50 mg capsule (Senna Plus) #30 caps zolpidem 5 mg tablet 5 mg PO BEDTIME PRN insomnia #30 04/25/25 tabs sulfamethoxazole 800 1 tab PO BID 7 days #14 tabs 08/13/24 mg-trimethoprim 160 mg tablet (Bactrim DS) nitrofurantoin 100 mg PO BID 7 days #14 caps 08/22/24 monohydrate/macrocrystals 100 mg capsule (Macrobid) trazodone 50 mg tablet 50 mg PO BEDTIME for insomnia #90 08/23/24 tabs Allergies Allergy/AdvReac Type Severity Reaction Status Date / Time No Known Allergies Allergy Verified 09/03/24 12:34 Review of Systems Review of Systems: As per HPI Yes all other systems are reviewed and are negative Constitutional: Constitutional: Reports as per HPI PMFSH Past Medical History Medical History Urinary retention Rene hematuria Acute urinary retention Radiation cystitis Hypertension Diverticulosis Overweight (BMI 25.0-29.9) History of prostate cancer Renal cyst Vitamin D deficiency Osteoarthritis of left knee Impaired fasting glucose Pure hypercholesterolemia Benign essential hypertension Surgical History Hx of right inguinal hernia repair (02/16/23) History of ankle surgery History of colonoscopy History of meniscectomy of left knee (~06/05/12) Hx of prostatectomy Hx of umbilical hernia repair Family History Family History Father Cancer Mother Colon cancer Social History Social History Household Members: Spouse Housing: House Are you a primary senior resident care director to a significant other at home: No Do you presently have visiting nurse or other home services: No Alcohol intake: current Alcohol intake frequency: 0-2 drinks per day Alcohol type: beer Comment: . 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 Cognitive needs: No Hearing needs: No Vision needs: Yes (Glasses) Physical Exam ED Vital Signs: Vital Signs - 24 hr 09/03/24 12:30 09/03/24 13:09 09/03/24 13:35 Pulse Rate 107 H 101 H 86 Respiratory Rate 18 22 H 18 Blood Pressure 75/50 L 86/54 L 113/63 Pulse Oximetry 100 97 96 Oxygen Delivery Method Room Air Room Air Room Air 09/03/24 14:00 09/03/24 14:24 09/03/24 15:14 Pulse Rate 95 91 96 Respiratory Rate 18 18 18 Blood Pressure 137/68 134/69 132/74 Pulse Oximetry 95 95 95 Oxygen Delivery Method Room Air Room Air Room Air BMI result Body Mass Index 21.7 Vital signs have been reviewed and appear to be correct. Blood pressure hypotensive. Heart rate slightly tachycardic. Respiratory rate normal. Temperature normal. Oxygen saturation normal. Const General: cooperative, no acute distress and tired appearing Nutritional Appearance: average body habitus Orientation/consciousness: oriented to person, oriented to place, oriented to time and patient oriented x3 Limitations: no limitations HENMT Head: Yes normocephalic and Yes atraumatic Ears: external ears normal General nose exam: Normal external nose present Face and sinus: Yes face symmetric Mouth: oropharynx normal and moist mucous membranes Throat: Yes uvula midline Eyes Pupils: Equal, round and reactive pupils present Neck Neck: Yes normal visual inspection and Yes supple Resp Effort & Inspection: normal respiratory effort and able to speak in complete sentences Auscultation: clear to auscultation bilaterally Cardio Rate: regular rate Rhythm: regular rhythm Heart sounds: S1 normal heart sound present and S2 normal heart sound present GI Palpation (GI): Soft to palpation and nontender Auscultation: normoactive bowel sounds General: Yes no CVA tenderness Back/Spine/Pelvis Back: no CVA tenderness Skin General skin exam: elasticity normal and turgor normal Neuro General: oriented to person, oriented to place, oriented to time, patient oriented x3, moves all extremities, no focal motor deficits and CN's II-XI intact bilaterally Cranial nerves: Yes Equal, round and reactive pupils present Cognition (Neuro): normal cognition Extrem General: Yes full ROM, Yes no pedal edema and Yes no calf tenderness Psych Mental Status: mental status grossly normal Affect: normal affect Thought process: Normal thought process present Course Course Course Narrative: 09/03/24 1230 PARAMJIT Grier This is a Rapid Medical Examination (RME) performed by Hayley Reid PA-C in triage. Full HPI, ROS, assessment and treatment plan per primary provider in the Main ED. Hx: 79 yo M hx HTN, HLD, left lower DVT on Eliquis, prostate cancer s/p radiation surgery here for increased weakness/dizziness. his pcp called in routine outpatient blood work however cannot wait for appointment. recent admission in july for urinary retention/UTI. recent urine culture on 08/30/24 clean. reports 30lb weight loss since Apr 2024. PE/vitals: unable to obtain oral temp. thin, pale appearing Plan: labs, cxr, UA patient relations coordinator aware - pt to be brought back to main ED bed Medications Administered Discontinued Medications Generic Name Dose Route Start Last Admin Trade Name Freq PRN Reason Stop Dose Admin Lactated Ringer's 2,001 mls @ 2,001 mls/hr 09/03/24 12:59 09/03/24 14:13 Lr 30 ml/kg infuse over 1 hr (2001 ml) 09/03/24 13:58 Infused IV Infusion .Q1H ONE Cefepime HCl 2 gm in 50 mls @ 100 mls/hr 09/03/24 13:22 09/03/24 14:03 Maxipime IV 09/03/24 13:51 Infused ONCE ONE Infusion Medical Decision Making Medical Decision Making [facility] Narrative: Patient is an 79-year-old male with history of prostate cancer s/p radiation and prostatectomy, HTN, HLD and 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 On exam patient is awake, A+Ox3, VS WNL, afebrile, normal neurological exam without focal deficits, physical exam findings as above. Given reported symptoms and physical exam findings, initial differential includes but is not limited to sepsis, UTI, anemia, electrolyte abnormality, cardiac arrhythmia. EKG shows sinus tachycardia. Labs notable for leukocytosis with shift, MARYSE, elevated lactic, hypercalcemia, elevated hcg. Patient meets sepsis criteria, abx and 30mL/kg fluid bolus ordered. X-ray chest notable for no evidence of pneumonia. My interpretation is in agreement with the radiologist's interpretation. Admission to medicine accepted by hospitalist. Differential Diagnosis Differential Diagnoses: The differential diagnosis associated with the presentation includes as per [facility] Admission/Observation Consideration of admission/observation: Escalation of care including admission/observation considered Consult Healthcare Provider Management of the patient was discussed with: Hospitalist Lab Data [facility] Lab Attestation statement: I reviewed the patient's lab results. as per [facility] 09/03/24 13:01 09/03/24 13:01 Labs: Lab Results 09/03/24 Range/Units 13:01 WBC 11.6 H (4.8-10.8) X10*3/uL RBC 4.30 L (4.60-5.80) X10*6/uL Hgb 12.3 L (14.0-18.0) g/dl Hct 37.7 L (42.0-52.0) % MCV 87.7 (80.0-98.0) fL MCH 28.6 (27.0-33.0) pg MCHC 32.6 (31.0-36.0) g/dl RDW 14.6 (11.0-16.0) % Plt Count 230 (160-400) X10*3/uL MPV 8.2 L (9.4-12.4) fL Immature Gran % (Auto) 0.4 (0.0-0.4) % Neut % (Auto) 87.7 H (45-73) % Lymph % (Auto) 6.2 L (20-40) % [place] % (Auto) 5.3 (2-11) % Eos % (Auto) 0.3 (0-4) % Baso % (Auto) 0.1 (0-2) % Lymph # (Auto) 0.7 L (1.2-4.9) X10*3/uL [place] # (Auto) 0.6 (0.1-1.2) X10*3/uL Eos # (Auto) 0.0 (0.0-0.4) X10*3/uL Baso # (Auto) 0.0 (0.0-0.2) X10*3/uL Abs Immat Gran (auto) 0.05 H (0.00-0.03) X10*3/uL Absolute Neuts (auto) 10.2 H (2.0-8.3) x10*3/uL Absolute Nucleated RBC 0.000 (0.0-0.012) X10*3/uL Nucleated RBC % (auto) 0.0 (0.0-0.2) /100WBC Hold Purple Top SEE NOTE Hold Blue Top SEE NOTE Sodium 135 (135-145) mmol/L Potassium 4.9 (3.3-5.1) mmol/L Chloride 98 (96-108) mmol/L Carbon Dioxide 28 (22-29) mmol/L Anion Gap 14 (12-20) BUN 59 H (9-16) mg/dL Creatinine 1.90 H (0.5-1.4) mg/dL Estim Creat Clear Calc 29.2 Estimated GFR 34 Random Glucose 109 (60-115) mg/dL Lactic Acid 3.8 H* (0.5-2.0) mmol/L Calcium 16.1 H* D (8.4-10.2) mg/dL Magnesium 2.1 (1.6-2.6) mg/dL Total Bilirubin 0.4 (0.0-1.0) mg/dL AST 39 H (5-37) U/L ALT 19 (0-40) U/L Alkaline Phosphatase 75 (39-117) U/L Total Protein 7.8 (6.5-8.0) g/dL Albumin 3.8 (3.5-5.0) g/dL Lipase 56 (8-78) U/L TSH 1.73 (0.32-4.0) uIU/mL Free T4 1.07 (0.71-1.85) ng/dL Beta HCG, Quant 86 mIU/mL Influenza Type A (PCR) NEGATIVE (Negative) Influenza Type B (PCR) NEGATIVE (Negative) RSV RNA Qual (PCR) NEGATIVE (Negative) SARS-CoV-2 RNA (RT-PCR) NEGATIVE (Negative) Independent Interpretation I performed an independent interpretation of an: EKG (sinus tachycardia, rate 102, normal HI interval and QTc, no significant change from prior) and Plain X-Ray Interpretation: No evidence of pneumonia on chest x-ray Radiology Impression Discussion of test interpretation with radiology: I have reviewed the radiologist's reading. Radiologist Impression: EXAMINATION: XR CHEST CLINICAL INFORMATION: weakness COMPARISON: December 29, 2023. TECHNIQUE: Frontal view of the chest was obtained. FINDINGS: No consolidation, pleural effusion or pneumothorax. Cardiomediastinal silhouette size is normal. Multilevel thoracic spondylosis. Degenerative changes in the acromioclavicular joints. XR/XR chest 1V IMPRESSION: No acute airspace disease. External Record Review External record reviewed: Inpatient record, Office record and Outpatient record Discharge Plan Discharge Clinical Impression: Sepsis, MARYSE (acute kidney injury), Hypercalcemia Patient Disposition: Admitted As Inpatient Print Language: Cambodian
--- NOTE | 2024-09-03 12:34 | ECG_ITS ---
Test Reason : WEAKNESS Blood Pressure : */* mmHG Vent. Rate : 102 BPM Atrial Rate : 102 BPM P-R Int : 152 ms QRS Dur : 90 ms QT Int : 302 ms P-R-T Axes : 50 -68 67 degrees QTcB Int : 393 ms Sinus tachycardia Left anterior fascicular block Possible Anterolateral infarct , age undetermined Abnormal ECG When compared with ECG of 18-Dec-2023 09:11, No significant change was found Referred By: Roma Reid Electronically Signed By: Cain Mckinnon
--- NOTE | 2024-09-03 12:39 | PC.NURSE ---
discharge coordinator aware of need to bring patient back but needs to move patients. sent for labs drawn in the meantime.
[2024-09-03] MEDS: LACTATED RINGERS 2001 ML IV (13:09)
[2024-09-03 13:10] LABS: MANUAL DIFF FLAG NO
[2024-09-03 13:15] LABS: Basophils Percent Auto 0.1 % (0-2); Eosinophils Percent Auto 0.3 % (0-4); Hematocrit 37.7 % (42.0-52.0); Hemoglobin 12.3 g/dl (14.0-18.0); Imm Gran Abs Auto 0.05 X10*3/uL (0.00-0.03); Imm Gran Pct Auto 0.4 % (0.0-0.4); Lymphocytes Absolute Auto 0.7 X10*3/uL (1.2-4.9); Lymphocytes Percent Auto 6.2 % (20-40); Mean Corpuscular HGB Conc 32.6 g/dl (31.0-36.0); Mean Corpuscular Hemoglobin 28.6 pg (27.0-33.0); Mean Corpuscular Volume 87.7 fL (80.0-98.0); Mean Platelet Volume 8.2 fL (9.4-12.4); Monocytes Absolute Auto 0.6 X10*3/uL (0.1-1.2); Monocytes Percent Auto 5.3 % (2-11); Neutrophils Absolute Auto 10.2 x10*3/uL (2.0-8.3); Neutrophils Percent Auto 87.7 % (45-73); Platelet Count 230 X10*3/uL (160-400); Red Cell Distribution Width 14.6 % (11.0-16.0); White Blood Count 11.6 X10*3/uL (4.8-10.8)
[2024-09-03] MEDS: cefEPime HCl/D5W 2 GM/50 ML PIGGYBACK IV (13:33)
[2024-09-03 13:50] LABS: Influenza A PCR NEGATIVE (Negative); Influenza B PCR NEGATIVE (Negative); Resp Syncy Virus RNA Qual PCR NEGATIVE (Negative); SARS COV2 PCR INHOUSE NEGATIVE (Negative)
[2024-09-03 13:52] LABS: Alanine Aminotransferase 19 U/L (0-40); Albumin Level 3.8 g/dL (3.5-5.0); Alkaline Phosphatase 75 U/L (39-117); Anion Gap 14 (12-20); Aspartate Amino Transferase 39 U/L (5-37); Bilirubin Total 0.4 mg/dL (0.0-1.0); Blood Urea Nitrogen 59 mg/dL (9-16); Carbon Dioxide 28 mmol/L (22-29); Chloride 98 mmol/L (96-108); Creatinine Clr Calc Pharmacy 29.2; Estimated Glomerular Filt Rate 34; Glucose Random 109 mg/dL (60-115); Lipase 56 U/L (8-78); Magnesium 2.1 mg/dL (1.6-2.6); Potassium 4.9 mmol/L (3.3-5.1); Sodium 135 mmol/L (135-145); Total Protein 7.8 g/dL (6.5-8.0)
[2024-09-03 14:00] LABS: Free T4 (Free Thyroxine) 1.07 ng/dL (0.71-1.85); HCG Quantitative 86 mIU/mL; Thyroid Stimulating Hormone 1.73 uIU/mL (0.32-4.0)
[2024-09-03 14:02] LABS: Calcium 16.1 mg/dL (8.4-10.2); Lactic Acid 3.8 mmol/L (0.5-2.0)
--- NOTE | 2024-09-03 14:56 | P.HPHOSP_ITS ---
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 Recently had indwelling urinary catheter for retention/clots, but has since been removed. Daughter states that his urine was recently tested for infection and was negative but that his urine is also being sent to [place] to test for bacteria they are unable to test for here. Patient reports dark stools but states he takes iron supplements so attributed it to that. Denies chest pain, palpitations. Some shortness of breath worse with exertion. Denies abdominal pain, vomiting, diarrhea. Denies fevers. Reports 30# weight loss over 5 mos. Daughter states patient had great difficulty getting from the house into the car, then from the car into the hospital today. In the ED patient given IV fluids, Pamidronate, advanced analytics associate negative, UA borderline. Plan is to admit for further management of MARYSE and hypercalcemia Review of Systems 2 Review of Systems: Denies any recent fever chills or decrease in appetite respiratory denies any shortness of breath or cough cardiovascular denied chest pain gastrointestinal denies any dysphagia abdominal pain nausea vomiting or diarrhea genitourinary denies any dysuria frequency or hematuria musculoskeletal denies any joint pain or swelling neuropsych denies any weakness or seizures all other systems reviewed are negative [facility] Medical History Urinary retention Rene hematuria Acute urinary retention Radiation cystitis Hypertension Diverticulosis Overweight (BMI 25.0-29.9) History of prostate cancer Renal cyst Vitamin D deficiency Osteoarthritis of left knee Impaired fasting glucose Pure hypercholesterolemia Benign essential hypertension Family History Father Cancer Mother Colon cancer Surgical History Hx of right inguinal hernia repair (02/16/23) History of ankle surgery History of colonoscopy History of meniscectomy of left knee (~06/05/12) Hx of prostatectomy Hx of umbilical hernia repair Social History (Reviewed 08/04/24 @ 14:25 by MODE Miguel Household Members: Spouse Housing: House Are you a primary managed care coordinator to a significant other at home: No Do you presently have visiting nurse or other home services: No Alcohol intake: current Alcohol intake frequency: 0-2 drinks per day Alcohol type: beer Comment: . 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 Cognitive needs: No Hearing needs: No Vision needs: Yes (Glasses) Meds Allergies Allergy/AdvReac Type Severity Reaction Status Date / Time No Known Allergies Allergy Verified 09/03/24 12:34 Active Medications: Current Medications Acetaminophen (Acetaminophen 325 Mg Tablet) 650 mg PO Q6H PRN PRN Reason: Pain, Mild 1-3,fever,headache Calcium Carbonate (Calcium Carbonate 750 Mg Tab.Chew) 750 mg PO Q4H PRN PRN Reason: Heartburn Heparin Sodium (Porcine) (Heparin Sodium,Porcine 5,000 Unit/Ml Vial) 5,000 unit SUBCUT Q12H [place] Sodium Chloride (Ns) 1,000 mls @ 999 mls/hr IV .Q1H1M [place] Stop: 09/03/24 16:00 Pamidronate Disodium 90 mg/ (Sodium Chloride) 260 mls @ 130 mls/hr IV ONCE ONE Stop: 09/03/24 16:46 Magnesium Hydroxide (Milk Of Magnesia 30 Ml Oral.Susp) 30 ml PO DAILY PRN PRN Reason: Constipation Melatonin (Melatonin 3 Mg Tablet) 6 mg PO BEDTIME PRN PRN Reason: Insomnia Ondansetron HCl (Ondansetron Hcl 4 Mg/2 Ml Vial) 4 mg IVPUSH Q8H PRN PRN Reason: Nausea and Vomiting Sodium Chloride (0.9 % Sodium Chloride Flush 3 Ml Syringe) 3 ml IVFLUSH QSHIFT [facility] Physical Exam 2 Vital Signs and Narrative: Vital Signs: Last Vital Signs Pulse 95 09/03/24 14:00 Resp 18 09/03/24 14:00 BP 137/68 09/03/24 14:00 Pulse Ox 95 09/03/24 14:00 O2 Del Method Room Air 09/03/24 14:00 BMI result Body Mass Index 21.7 Appearing in no acute distress head is normocephalic atraumatic eyes pupils are PERRLA sclera is anicteric mouth throat mucous membranes are intact and moist neck is supple no lymphadenopathy, no JVD noted lung sounds are clear to auscultation heart regular rate rhythm, clear S1, S2 positive bowel sounds, abdomen is soft, nontender neuro patient is alert x3, no focal deficits Results Labs 09/04/24 04:05 09/04/24 04:05 Labs: Laboratory Results - last 24 hr 09/03/24 13:01 MCV 87.7 MCH 28.6 MCHC 32.6 RDW 14.6 Plt Count 230 MPV 8.2 L Immature Gran % (Auto) 0.4 Neut % (Auto) 87.7 H Lymph % (Auto) 6.2 L [place] % (Auto) 5.3 Eos % (Auto) 0.3 Baso % (Auto) 0.1 Lymph # (Auto) 0.7 L [place] # (Auto) 0.6 Eos # (Auto) 0.0 Baso # (Auto) 0.0 Abs Immat Gran (auto) 0.05 H Absolute Neuts (auto) 10.2 H Absolute Nucleated RBC 0.000 Nucleated RBC % (auto) 0.0 Hold Purple Top SEE NOTE Hold Blue Top SEE NOTE Anion Gap 14 Estim Creat Clear Calc 29.2 Estimated GFR 34 Random Glucose 109 Lactic Acid 3.8 H* Calcium 16.1 H* D Magnesium 2.1 Total Bilirubin 0.4 AST 39 H ALT 19 Alkaline Phosphatase 75 Total Protein 7.8 Albumin 3.8 Lipase 56 TSH 1.73 Free T4 1.07 Beta HCG, Quant 86 Influenza Type A (PCR) NEGATIVE Influenza Type B (PCR) NEGATIVE RSV RNA Qual (PCR) NEGATIVE SARS-CoV-2 RNA (RT-PCR) NEGATIVE Imaging Radiologist's Impressions: Impressions Chest X-Ray 09/03/24 13:10 IMPRESSION: No acute airspace disease. Electronically signed by: Zoran Sibley MD 09/03/2024 01:36 PM EDT RP Assessment and Plan (1) Benign essential hypertension: Status: Acute Plan 79 year old man admitted with SIRS, weakness Weakness and lethargy recent tx for UTI CXR negative for acute abnormality, covid, flu and RSV negative no obvious signs of infection Check RPP Follow blood and urine cx MARYSE ? dehydration and UTI IV fluids folllow BMP if no improvement consider nephrology consultation Hypercalcemia Multifactorial related to dehydration vs mets given check PTH monitor closely Normocytic anemia, non blood loss check iron in am follow CBC Dysphagia Speech therapy evaluation Hypertension stable continue home medications Mental health continue home medication DVT prophylaxis with heparin Full code Quality Stroke Does the patient have a stroke diagnosis?: No VTE Prior VTE?: No VTE Risk Level:: Medical - moderate - high VTE Device Contraindication: Treatment Not Indicated VTE Drug Contraindication: N/A - Med Ordered
[2024-09-03 15:09] LABS: Reflex Lactate? Lactic Acid Added
[2024-09-03] MEDS: Heparin Sodium,Porcine 5,000 UNIT/ML VIAL 5000 UNIT SUBCUT (15:58)
[2024-09-03] MEDS: 0.9 % Sodium Chloride 1,000 ML 999 ML IV (15:58)
[2024-09-03 16:04] LABS: ~Lactic Acid-LAB USE ONLY 1.7 mmol/L (0.5-2.0)
[2024-09-03 16:10] LABS: Parathyroid Hormone Intact 10.6 pg/mL (8.7-77.1)
--- NOTE | 2024-09-03 16:27 | PC.NURSE ---
Nallely med from pharm.
[2024-09-03] MEDS: SODIUM CHLORIDE 0.9% IV (16:34)
[2024-09-03] MEDS: PAMIDRONATE DISODIUM IV (16:34)
--- NOTE | 2024-09-03 16:36 | PHA.MEDREC ---
Addendum entered by Becca Rose [facility] 09/03/24 17:10: rEVIEWED, spoke with [employer] tech who said patient also confirmed they no longer take zolpidem as well. Original Note: Pharmacy Consult ? Medication Reconciliation Pharmacy has completed the medication reconciliation. Spoke to patient to confirm med list. Patient states he is only taking Amlodipine 5mg-Benazepril 40 mg, Miralax, and Trazodone 50 mg. Patient states he stopped taking all his vitamins. Took Vitamin C 500 mg, Vitamin D3 10 mcg, Sennexon-S, Multivitamin , Vitamin E 450mg off the med list.
[2024-09-03] MEDS: 0.9 % Sodium Chloride Flush 3 ML SYRINGE IVFLUSH (16:41)
--- NOTE | 2024-09-03 18:13 | PC.NURSE ---
Per pt, states notified someone , that he has to use restroom. Primary RN and tech were not notified or informed, pt. had accident on the sheets. Pt. changed and cleaned up at this time.
[2024-09-03 18:41] LABS: Appearance Urine Cloudy; Color Urine Yellow; Glucose Urine UA Negative (Negative); Leukocyte Esterase Urine Large (3+) (Negative); Nitrite Urine Positive (Negative); Specific Gravity - Urine 1.015 (1.005-1.025); UMIC TRIGGER UACC YES; Urine Blood Large (3+) (Negative); Urine Ketones Negative (Negative); Urine Protein 30 (1+) mg/dL (Neg-Trace)
[2024-09-03 18:43] LABS: Bacteria Urine 2+ (None Seen); RBC Urine >20 /HPF (0-2); Squamous Epithelial Cell Urine 0-2 /HPF (0-2); UACC Culture Trigger YES; WBC Urine >50 /HPF (0-5)
--- NOTE | 2024-09-03 19:22 | PC.NURSE ---
Pt. unable to tolerate food, notified LOUISE Mohan of this. Speech therapy consult placed and pt. and family at bedside informed that he will be NPO until speech sees pt. Also, informed family is requesting full resp. panel. Awaiting response on that information.
--- NOTE | 2024-09-03 20:21 | PC.NURSE ---
Order never put in by provider for npo until cleared by speech. Informed MD Crocker of this, since previous provider Kimberlee [employer]EDAT[employer] ANIMAL HUNTER did not and left for the day.
[2024-09-04] VITALS (9 sets, daily range): BP systolic 117–156; BP diastolic 61–77; PULSE 96–106; RESP 16–20; TEMP 36.3–36.9; O2SAT 96–100
[2024-09-04 04:09] LABS: Hematocrit 35.1 % (42.0-52.0); Hemoglobin 11.6 g/dl (14.0-18.0); Mean Corpuscular Hemoglobin 28.6 pg (27.0-33.0); Mean Corpuscular Volume 86.7 fL (80.0-98.0); Platelet Count 177 X10*3/uL (160-400); Red Blood Count 4.05 X10*6/uL (4.60-5.80); Red Cell Distribution Width 14.6 % (11.0-16.0); White Blood Count 10.7 X10*3/uL (4.8-10.8)
[2024-09-04 04:39] LABS: Alanine Aminotransferase 13 U/L (0-40); Albumin Level 3.1 g/dL (3.5-5.0); Alkaline Phosphatase 65 U/L (39-117); Anion Gap 12 (12-20); Aspartate Amino Transferase 36 U/L (5-37); Bilirubin Total 0.3 mg/dL (0.0-1.0); Blood Urea Nitrogen 58 mg/dL (9-16); Carbon Dioxide 24 mmol/L (22-29); Chloride 105 mmol/L (96-108); Creatinine Clr Calc Pharmacy 32.6; Estimated Glomerular Filt Rate 39; Glucose Random 101 mg/dL (60-115); Iron 22 mcg/dL (45-160); Percent Iron Saturation 12 % (15-50); Potassium 4.8 mmol/L (3.3-5.1); Sodium 136 mmol/L (135-145); Total Iron Binding Capacity 177 mcg/dL (228-428); Total Protein 6.4 g/dL (6.5-8.0); Unsaturated Iron Binding 155 ug/dL
[2024-09-04] MEDS: Lactated Ringers 1,000 ML 100 ML IVCONT (09:11)
[2024-09-04] MEDS: 0.9 % Sodium Chloride Flush 3 ML SYRINGE IVFLUSH ×2 (09:14→15:30)
[2024-09-04] MEDS: cefTRIAXone sodium 1 GM VIAL IVPUSH (09:15)
--- NOTE | 2024-09-04 09:21 | PM.CNNEP ---
History of Present Illness Reason for Consult Consult date: 09/04/24 Chief Complaint Chief complaint: MARYSE Hypercalcemia History of Present Illness Narrative: 79 y/o male with a medical history of prostate cancer (diagnosed 14 years ago per pt) s/p radiation and prostatectomy, chronic hematuria, HTN, HLD, DVT on eliquis. Presented 09/03 with profound weakness ongoing for months, worsening in last few weeks, reports could not get up yesterday due to weakness so came to hospital. blood pressure 75/50 on presentation, creatinine 1.9 (last creatinine 1.04 in July), calcium 14, PTH 12, vit D pending, H&H 11.6 & 35. creatinine this a.m. is 1.7, down from 1.9 last evening Pt reports takes amlodipine-benazepril at home, along with an OTC vitamin D supplement- states he does not know the dose but only takes one small pill each day. patient given aredia 90mg IV for hypercalcemia, on LR drip at 100ml/hr, also started on lasix IVP 20mg BID patient states he has significant weakness and not sure if he can get up, otherwise no new symptoms. states blood in urine and discomfort with urination/burning is chronic. states he was short of breath at home but this has resolved. denies other new symptoms. Review of Systems Constitutional: Reports weakness Cardiovascular: Denies chest pain, Denies leg edema, Denies lightheadedness and Denies dyspnea Respiratory: Denies cough and Denies dyspnea Gastrointestinal: Denies abdominal pain, Denies constipation, Denies diarrhea, Denies nausea and Denies vomiting Genitourinary: Reports hematuria, Reports oliguria, Reports dysuria and Denies flank pain Musculoskeletal: Denies back pain and Denies muscle cramps Skin/Breast: Denies rash Reports weakness PMFSH Past Medical History Medical History Urinary retention Rene hematuria Acute urinary retention Radiation cystitis Hypertension Diverticulosis Overweight (BMI 25.0-29.9) History of prostate cancer Renal cyst Vitamin D deficiency Osteoarthritis of left knee Impaired fasting glucose Pure hypercholesterolemia Benign essential hypertension Family History Family History Father Cancer Mother Colon cancer Surgical History Surgical History Hx of right inguinal hernia repair (02/16/23) History of ankle surgery History of colonoscopy History of meniscectomy of left knee (~06/05/12) Hx of prostatectomy Hx of umbilical hernia repair Social History Social History Household Members: Spouse Housing: House Are you a primary care provider to a significant other at home: No Do you presently have visiting nurse or other home services: No Alcohol intake: current Alcohol intake frequency: 0-2 drinks per day Alcohol type: beer Comment: . 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 Cognitive needs: No Hearing needs: No Vision needs: Yes (Glasses) Meds Allergies Allergy/AdvReac Type Severity Reaction Status Date / Time No Known Allergies Allergy Verified 09/03/24 12:34 Active Medications: Current Medications Acetaminophen (Acetaminophen 325 Mg Tablet) 650 mg PO Q6H PRN PRN Reason: Pain, Mild 1-3,fever,headache Ceftriaxone Sodium (Ceftriaxone Sodium 1 Gm Vial) 1 gm IVPUSH Q24H FOR[facility]LY [facility], [facility]1983 Last Admin: 09/04/24 09:15 Dose: 1 gm Furosemide (Furosemide 20 Mg/2 Ml Vial) 20 mg IVPUSH BID@0900,1800 K[place]; Protocol Heparin Sodium (Porcine) (Heparin Sodium,Porcine 5,000 Unit/Ml Vial) 5,000 unit SUBCUT Q12H FOR[facility]LY [facility], [facility]1983 Last Admin: 09/04/24 03:55 Dose: Not Given Lactated Ringer's (Lr) 1,000 mls @ 100 mls/hr IVCONT .Q10H FOR[facility] Last Admin: 09/04/24 09:11 Dose: 100 mls/hr Magnesium Hydroxide (Milk Of Magnesia 30 Ml Oral.Susp) 30 ml PO DAILY PRN PRN Reason: Constipation Melatonin (Melatonin 3 Mg Tablet) 6 mg PO BEDTIME PRN PRN Reason: Insomnia Ondansetron HCl (Ondansetron Hcl 4 Mg/2 Ml Vial) 4 mg IVPUSH Q8H PRN PRN Reason: Nausea and Vomiting Sodium Chloride (0.9 % Sodium Chloride Flush 3 Ml Syringe) 3 ml IVFLUSH QSHIFT [facility] Last Admin: 09/04/24 09:14 Dose: 3 ml Physical Exam Vital Signs: Last Vital Signs Temp 97.6 F 09/04/24 09:08 Pulse 96 09/04/24 09:08 Resp 18 09/04/24 09:08 BP 135/72 09/04/24 09:08 Pulse Ox 97 09/04/24 09:08 O2 Del Method Room Air 09/04/24 09:08 BMI result Body Mass Index 21.7 Const General: no acute distress, alert and awake Resp Effort & Inspection: normal respiratory effort and able to speak in complete sentences Auscultation: clear to auscultation bilaterally Cardio Rate: regular rate Rhythm: regular rhythm Heart sounds: S1 normal heart sound present and S2 normal heart sound present GI Palpation (GI): Soft to palpation and nontender Results Lab Results 09/04/24 04:05 09/04/24 04:05 Lab results: Chemistry 09/03/24 09/04/24 13:01 04:05 Sodium 135 136 Potassium 4.9 4.8 Carbon Dioxide 28 24 BUN 59 H 58 H Creatinine 1.90 H 1.70 H Calcium 16.1 H* D 14.0 H* D Hematology 09/03/24 09/04/24 13:01 04:05 WBC 11.6 H 10.7 Hgb 12.3 L 11.6 L Plt Count 230 177 Urinalysis 09/03/24 18:36 Urine Color Yellow Urine Appearance Cloudy Urine pH 5.0 Ur Specific [place] 1.015 Urine Protein 30 (1+) H Urine Glucose (UA) Negative Urine Ketones Negative Urine Blood Large (3+) H Urine Nitrite Positive H Ur Leukocyte Esterase Large (3+) H Urine RBC >20 H Urine WBC >50 H Ur Squamous Epith Cells 0-2 Hyaline Casts 3-5 Assessment and Plan (1) MARYSE (acute kidney injury): Status: Acute (2) Hypercalcemia: Status: Acute Plan MARYSE- likely hemodynamic MARYSE given hypotension on presentation, also likely component of dehydration in setting of JEANNETTE inhibitor use contributing recommend IVF, avoid hypotension continue to hold jeannette inhibitor until creatinine normalizes Hypercalcemia- most likely from metastasis given history of prostate cancer vitamin D levels pending- given patient taking one OTC pill daily, unlikely to be vit D intoxication recommend switching from LR to NS at 150ml/hr, continue lasix 20mg IVP BID to aid in excretion of calcium IV/subcu calcitonin not on formulary, will administer intranasal spray recommend daily electrolyte and renal function studies recommend avoiding nephrotoxins including nsaids recommend avoiding hypotension, check regular blood pressures and close I&O monitoring continue supportive care, will continue to follow Discussed with Dr Britt Procedures Date of Service Date of Service: 09/04/24
[2024-09-04] MEDS: 0.9 % Sodium Chloride 1,000 ML 150 ML IVCONT ×3 (10:10→21:37)
[2024-09-04] MEDS: Furosemide 20 MG/2 ML VIAL IVPUSH ×2 (10:31→17:34)
--- NOTE | 2024-09-04 10:38 | MHC.CM.PN ---
IMM 09/04/24, Pt. lives with his , PCP confirmed: Dr. Ji, HCP on file and confirmed: [facility]. Pt. does not have home care services, or use DME. He is a , is not using [facility]. Family to transport home at [place]. DCP: TBJenaro, CM to follow for DC needs.
--- NOTE | 2024-09-04 11:10 | P.PNIM_ITS ---
Subjective Subjective Date of Service: 09/04/24 Interval History: Follow up weakness feeling about the same no nausea or vomiting Review of Systems Review of Systems: Yes all other systems are reviewed and are negative Constitutional Constitutional: Denies chills and Denies fever(s) Cardiovascular Cardiovascular: Denies chest pain and Denies palpitations Gastrointestinal Gastrointestinal: Denies abdominal pain, Denies nausea and Denies vomiting Endocrine Endocrine: Denies palpitations Physical Exam 2 Vital Signs: Vital Signs: Last Vital Signs Temp 97.6 F 09/04/24 10:16 Pulse 98 09/04/24 10:16 Resp 19 09/04/24 10:16 BP 156/77 H 09/04/24 10:31 Pulse Ox 99 09/04/24 10:16 O2 Del Method Room Air 09/04/24 10:16 BMI result Body Mass Index 21.7 Appearing in no acute distress lung sounds are clear to auscultation heart regular rate rhythm, clear S1, S2 positive bowel sounds, abdomen is soft, nontender neuro patient is alert x3, no focal deficits Objective Data Active Medications Acetaminophen (Acetaminophen 325 Mg Tablet) 650 mg PO Q6H PRN PRN Reason: Pain, Mild 1-3,fever,headache Ceftriaxone Sodium (Ceftriaxone Sodium 1 Gm Vial) 1 gm IVPUSH Q24H COUNT INCLUDES THE [facility] Last Admin: 09/04/24 09:15 Dose: 1 gm Documented By: LAUREANO Furosemide (Furosemide 20 Mg/2 Ml Vial) 20 mg IVPUSH BID@0900,1800 COUNT INCLUDES THE [facility]; Protocol Last Admin: 09/04/24 10:31 Dose: 20 mg Documented By: LAUREANO Comments: 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 Heparin Sodium (Porcine) (Heparin Sodium,Porcine 5,000 Unit/Ml Vial) 5,000 unit SUBCUT Q12H COUNT INCLUDES THE [facility] Last Admin: 09/04/24 03:55 Dose: Not Given Documented By: LAURY Non-Admin Reason: Patient Asleep Sodium Chloride (Ns) 1,000 mls @ 150 mls/hr IVCONT .Q6H40M COUNT INCLUDES THE [facility] Last Admin: 09/04/24 10:10 Dose: 150 mls/hr Documented By: LAUREANO Magnesium Hydroxide (Milk Of Magnesia 30 Ml Oral.Susp) 30 ml PO DAILY PRN PRN Reason: Constipation Melatonin (Melatonin 3 Mg Tablet) 6 mg PO BEDTIME PRN PRN Reason: Insomnia Ondansetron HCl (Ondansetron Hcl 4 Mg/2 Ml Vial) 4 mg IVPUSH Q8H PRN PRN Reason: Nausea and Vomiting Sodium Chloride (0.9 % Sodium Chloride Flush 3 Ml Syringe) 3 ml IVFLUSH QSHIFT COUNT INCLUDES THE [facility] Last Admin: 09/04/24 09:14 Dose: 3 ml Documented By: LAUREANO Labs 09/04/24 04:05 09/04/24 04:05 Labs: Laboratory Results - last 24 hr 09/03/24 09/03/24 09/03/24 13:01 14:50 15:42 MCV 87.7 MCH 28.6 MCHC 32.6 RDW 14.6 Plt Count 230 MPV 8.2 L Immature Gran % (Auto) 0.4 Neut % (Auto) 87.7 H Lymph % (Auto) 6.2 L [place] % (Auto) 5.3 Eos % (Auto) 0.3 Baso % (Auto) 0.1 Lymph # (Auto) 0.7 L [place] # (Auto) 0.6 Eos # (Auto) 0.0 Baso # (Auto) 0.0 Abs Immat Gran (auto) 0.05 H Absolute Neuts (auto) 10.2 H Absolute Nucleated RBC 0.000 Nucleated RBC % (auto) 0.0 Hold Purple Top SEE NOTE Hold Blue Top SEE NOTE Anion Gap 14 Estim Creat Clear Calc 29.2 Estimated GFR 34 Random Glucose 109 Lactic Acid 3.8 H* Lactic Acid F/U @ 2Hr 1.7 Calcium 16.1 H* D Magnesium 2.1 Iron TIBC % Saturation Unsat Iron Binding Total Bilirubin 0.4 AST 39 H ALT 19 Alkaline Phosphatase 75 Total Protein 7.8 Albumin 3.8 Lipase 56 TSH 1.73 Free T4 1.07 Beta HCG, Quant 86 PTH Intact 10.6 Urine Color Urine Appearance Urine pH Ur Specific [place] Urine Protein Urine Glucose (UA) Urine Ketones Urine Blood Urine Nitrite Ur Leukocyte Esterase Urine RBC Urine WBC Ur Squamous Epith Cells Urine Bacteria Hyaline Casts Influenza Type A (PCR) NEGATIVE Influenza Type B (PCR) NEGATIVE RSV RNA Qual (PCR) NEGATIVE SARS-CoV-2 RNA (RT-PCR) NEGATIVE 09/03/24 09/04/24 18:36 04:05 MCV 86.7 MCH 28.6 MCHC 33.0 RDW 14.6 Plt Count 177 MPV 8.0 L Immature Gran % (Auto) Neut % (Auto) Lymph % (Auto) [place] % (Auto) Eos % (Auto) Baso % (Auto) Lymph # (Auto) [place] # (Auto) Eos # (Auto) Baso # (Auto) Abs Immat Gran (auto) Absolute Neuts (auto) Absolute Nucleated RBC 0.000 Nucleated RBC % (auto) 0.0 Hold Purple Top Hold Blue Top Anion Gap 12 Estim Creat Clear Calc 32.6 Estimated GFR 39 Random Glucose 101 Lactic Acid Lactic Acid F/U @ 2Hr Calcium 14.0 H* D Magnesium 2.0 Iron 22 L TIBC 177 L % Saturation 12 L Unsat Iron Binding 155 Total Bilirubin 0.3 AST 36 ALT 13 Alkaline Phosphatase 65 Total Protein 6.4 L Albumin 3.1 L Lipase TSH Free T4 Beta HCG, Quant PTH Intact 12.0 Urine Color Yellow Urine Appearance Cloudy Urine pH 5.0 Ur Specific [place] 1.015 Urine Protein 30 (1+) H Urine Glucose (UA) Negative Urine Ketones Negative Urine Blood Large (3+) H Urine Nitrite Positive H Ur Leukocyte Esterase Large (3+) H Urine RBC >20 H Urine WBC >50 H Ur Squamous Epith Cells 0-2 Urine Bacteria 2+ Hyaline Casts 3-5 Influenza Type A (PCR) Influenza Type B (PCR) RSV RNA Qual (PCR) SARS-CoV-2 RNA (RT-PCR) Assessment and Plan (1) Benign essential hypertension: Status: Acute Plan 79 year old man admitted with SIRS, weakness Hypercalcemia Multifactorial related to dehydration vs mets normal PTH IV fluids and lasix nephrology following given hx of prostate cancer, check chest and abd CT Weakness and lethargy recent tx for UTI CXR negative for acute abnormality, covid, flu and RSV negative no obvious signs of infection recent weight loss of more than 20 lbs last few months, poor appetite RPP negative Follow blood and urine cx MARYSE ? dehydration and UTI vs hypercaclcemia IV fluids folllow BMP if no improvement consider nephrology consultation Possible UTI recent uti and FC empiric Rocephin follow final cx Normocytic anemia, non blood loss iron 22 follow CBC Dysphagia Speech therapy evaluation Hypertension stable BP hold meds for now Mental health continue home medication DVT prophylaxis with heparin Full code Quality Stroke Does the patient have a stroke diagnosis?: No VTE Prior VTE?: No VTE Risk Level:: Medical - moderate - high VTE Device Contraindication: Treatment Not Indicated VTE Drug Contraindication: N/A - Med Ordered
[2024-09-04 11:12] LABS: Adenovirus PCR Not Detected (Not Detect.); Bordetella parapertussis PCR Not Detected (Not Detect.); Bordetella pertussis PCR Not Detected (Not Detect.); Chlamydia pneumoniae PCR Not Detected (Not Detect.); Coronavirus 229E PCR Not Detected (Not Detect.); Coronavirus HKU1 PCR Not Detected (Not Detect.); Coronavirus NL63 PCR Not Detected (Not Detect.); Coronavirus OC43 PCR Not Detected (Not Detect.); Human metapneumovirus PCR Not Detected (Not Detect.); Influenza A PCR Not Detected (Not Detect.); Influenza B PCR Not Detected (Not Detect.); Mycoplasma pneumoniae PCR Not Detected (Not Detect.); Parainfluenza 1 PCR Not Detected (Not Detect.); Parainfluenza 2 PCR Not Detected (Not Detect.); Parainfluenza 3 PCR Not Detected (Not Detect.); Parainfluenza 4 PCR Not Detected (Not Detect.); RSV PCR Not Detected (Not Detect.); Rhino/Enterovirus PCR Not Detected (Not Detect.); SARS-CoV-2 PCR Not Detected (Not Detect.)
[2024-09-04 11:14] LABS: Influenza A H1 PCR Not Detected (Not Detect.); Influenza A H1-2009 PCR Not Detected (Not Detect.); Influenza A H3 PCR Not Detected (Not Detect.)
[2024-09-04] MEDS: Calcitonin,Salmon,Synth Nasal 3.7 ML BOTTLE 1 SPRAY NOSTRIL-R (12:07)
--- NOTE | 2024-09-04 12:36 | MHC.SL.SWA ---
Speech Pathologist Impression: Dysphagia unspecified, suspect esophageal phase involvement given pt complaints Risk of Aspiration Due to: Weakness Recent onset of vomiting after eating Hx of sensation 'food getting stuck' mid-thorax Dysphasia Diet Status: Oropharyngeal swallow WNL Liquid Consistency and Strategies for Safe Swallow: Liquid Intake Recommendation: Thin Liquid Intake Strategies: Solid Food Consistency: Dietary Recommendations: Regular Additional Modifications to Solid Foods: Oral Medication Intake: Whole with Liquid Please contact the pharmacy regarding appropriate crushable or liquid drug formulations that are available whenever modified delivery is recommended. Compensatory Strategies and Precautions to be Taken for Safe Swallow: Supervision While Eating and Drinking for Safe Swallow: None Needed Foods to Avoid: Swallowing Recommended Treatments: Recommendation for Speech: Further Testing Needed Comment: Pt has his natural teeth intact, mastication and oral prep phase WNL, manipulation of bouls and anterior to posterior transit adequate. Trigger of pharyngeal swallow timely/efficient. No overt s/s of aspiration with thin liquids, purees or solids. Pt endorses hx of sensation that food is getting stuck (gestured to esophagus) and that he recently had episode of vomiting after eating solids (vegetables/meats). [employer] recc regular diet, thin liquids and GI consultation to assess esophageal phase dysphagia. [employer] to followup x1. Frequency/Duration: Date Range for Service Req: Timeline to reassess: Fourdrinier Operator Clinican/Clinical Fellow: No Supervisory Statement: I have reviewed and agree with the student/clinical fellow's documentation: N/A Speech Language Pathologist: Delores Hamilton M.S., [facility]
--- NOTE | 2024-09-04 14:47 | MHC.SLORD ---
Speech Language Pathology Order Status: Pt seen and evaluated by SCALEMAKER in ED this morning. Upon arriving to floor, RN requested SCALEMAKER evaluate pt for diet; SCALEMAKER report already submitted; order had not been updated. RN clarified.
[2024-09-04] MEDS: Heparin Sodium,Porcine 5,000 UNIT/ML VIAL 5000 UNIT SUBCUT (15:30)
--- NOTE | 2024-09-04 17:07 | P.CNHO_ITS ---
Subjective - Subjective Chief complaint: Profound weakness, weight loss Patient: new to practice Consult date: 09/04/24 Primary Care Provider: Cade Enriquez MD Medical Assistant Prn Utilized?: No - Kyrgyz Speaking HPI - Consult Narrative Reason for consult: Probable metastatic malignancy Narrative: Charles Lucero is a 79 year old male with remote history of prostate cancer status post prostatectomy in [facility] followed by radiation therapy who is now presenting with profound weakness, loss of appetite, weight loss and inability to walk. He says his weakness has been gradually worsening in the last 2-3 months. He was driving until 4 days ago but in the last 4-5 days he has become very weak and is unable to get out of bed. He has had loss of appetite and reports worsening malaise. He denies any acute complaints such as chest pain, dizziness or palpitations. No abdominal pain, nausea or vomiting or emesis. No fever or chills. He has had 30 lb weight loss in the last 5 months. Patient was diagnosed with DVT about 2 years ago and has been on Eliquis. He has had hematuria which was secondary to combination of anticoagulation and radiation cystitis, he was admitted to [facility] in July 2024. During that admission he was treated for Klebsiella UTI. Patient's was at the bedside. He has 3 children. He is up-to-date with screening colonoscopy. He has been fairly healthy until about 3 months ago. Review of Systems - Constitutional Reports anorexia, Reports fatigue, Reports lack of energy, Reports malaise, Reports weakness, Reports weight loss - Eyes Denies change in vision - Cardiovascular Denies chest pain with activity - Respiratory Denies cough, Denies hemoptysis - Gastrointestinal Denies black, tarry stools, Denies change in stools - Genitourinary Genitourinary: Denies blood in urine - Neurologic Reports weakness PMFSH Medical History: Medical History (Last Reviewed 09/04/24 @ 11:39 by Kathy Tadeo RN) Acute urinary retention Benign essential hypertension Diverticulosis Rene hematuria History of prostate cancer Hypertension Impaired fasting glucose Osteoarthritis of left knee Overweight (BMI 25.0-29.9) Pure hypercholesterolemia Radiation cystitis Renal cyst Urinary retention Vitamin D deficiency Family History: Family History (Last Reviewed 08/04/24 @ 14:25 by PA Miguel) Father Cancer Mother Colon cancer Surgical History: Surgical History (Last Reviewed 09/04/24 @ 11:39 by Kathy Tadeo RN) History of ankle surgery History of colonoscopy History of meniscectomy of left knee Onset Date: ~06/05/12 Hx of prostatectomy Hx of right inguinal hernia repair Onset Date: 02/16/23 Hx of umbilical hernia repair Social History: Social History (Last Reviewed 08/04/24 @ 14:25 by PA Miguel) Living Situation History: Household Members: Spouse Housing: House Are you a primary day care director to a significant other at home: No Do you presently have visiting nurse or other home services: No Tobacco History: Patient Tobacco Use Status: Never used Tobacco e-Cigarette/Vaping Use: Never Used Second Hand Smoke Exposure: No Occupation Assessmet: service: Yes Current occupational status: retired 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 Home Medications and Allergies Current Medications: Current Medications Acetaminophen (Acetaminophen 325 Mg Tablet) 650 mg PO Q6H PRN PRN Reason: Pain, Mild 1-3,fever,headache Ceftriaxone Sodium (Ceftriaxone Sodium 1 Gm Vial) 1 gm IVPUSH Q24H [facility] Last Admin: 09/04/24 09:15 Dose: 1 gm Furosemide (Furosemide 20 Mg/2 Ml Vial) 20 mg IVPUSH BID@0900,1800 [facility]; Protocol Last Admin: 09/04/24 10:31 Dose: 20 mg Heparin Sodium (Porcine) (Heparin Sodium,Porcine 5,000 Unit/Ml Vial) 5,000 unit SUBCUT Q12H [facility] Last Admin: 09/04/24 15:30 Dose: 5,000 unit Sodium Chloride (Ns) 1,000 mls @ 150 mls/hr IVCONT .Q6H40M [facility] Last Admin: 09/04/24 10:10 Dose: 150 mls/hr Magnesium Hydroxide (Milk Of Magnesia 30 Ml Oral.Susp) 30 ml PO DAILY PRN PRN Reason: Constipation Melatonin (Melatonin 3 Mg Tablet) 6 mg PO BEDTIME PRN PRN Reason: Insomnia Ondansetron HCl (Ondansetron Hcl 4 Mg/2 Ml Vial) 4 mg IVPUSH Q8H PRN PRN Reason: Nausea and Vomiting Sodium Chloride (0.9 % Sodium Chloride Flush 3 Ml Syringe) 3 ml IVFLUSH QSHIFT [facility] Last Admin: 09/04/24 15:30 Dose: 3 ml Allergies Allergy/AdvReac Type Severity Reaction Status Date / Time No Known Allergies Allergy Verified 09/03/24 12:34 Physical Exam Vital signs: Vital Signs Temp 97.4 F 09/04/24 15:01 Pulse 100 09/04/24 15:01 Resp 17 09/04/24 15:01 BP 135/74 09/04/24 15:01 Pulse Ox 98 09/04/24 15:01 O2 Del Method Room Air 09/04/24 15:01 Intake & Output 09/03/24 09/04/24 09/04/24 18:59 06:59 18:59 Intake Total 3311 / 3311 540 / 540 Balance 3311 / 3311 540 / 540 Intake: Intake, IV Amount 3311 / 3311 540 / 540 0.9 % Sodium Chloride 1,000 ml 1000 / 1000 @ 999 mls/hr IV .Q1H1M [facility] Rx#: [id number] Lactated Ringers 2,001 ml @ 2001 / 2001 2001 mls/hr IV .Q1H [facility] Rx#: [id number] Pamidronate Disodium 90 mg In 0 260 / 260 .9 % Sodium Chloride 250 ml @ 130 mls/hr IV ONCE ONE Rx#: [id number] cefEPime HCl/D5W 2 gm In 50 ml 50 / 50 @ 100 mls/hr IV ONCE ONE Rx#: [id number] Lactated Ringers 1,000 ml @ 100 540 / 540 mls/hr IVCONT .Q10H [facility] Rx#: [id number] Other: Number of Incontinent Voids 1 Last Bowel Movement 09/03/24 Weight 66.7 kg Weight 66.7 kg - Constitutional Present: no acute distress, average body habitus - Routine HEENT Exam Head: Present: normocephalic Eye: Present: EOMI - Routine Neck Exam Present: supple. Absent: lymphadenopathy - Routine Respiratory Exam Absent: accessory muscle use, respiratory distress - Routine Cardiovascular Exam Cardiovascular: Present: S1, S2 - Routine Abdominal Exam Present: soft. Absent: distended, guarding - Routine Extremities Exam Present: pulses intact. Absent: calf tenderness, pedal edema - Routine Skin Exam Present: intact - Routine Neurological Exam Present: alert, oriented X3 Hem/Onc Consult Result - Labs CBC & Chem 7: 09/04/24 04:05 09/05/24 06:47 Labs: Short CBC 09/04/24 Range/Units 04:05 WBC 10.7 (4.8-10.8) X10*3/uL Hgb 11.6 L (14.0-18.0) g/dl Hct 35.1 L (42.0-52.0) % Plt Count 177 (160-400) X10*3/uL BMP 09/04/24 04:05 Sodium 136 Potassium 4.8 Chloride 105 Carbon Dioxide 24 BUN 58 H Creatinine 1.70 H Calcium 14.0 H* D Liver Function 09/04/24 Range/Units 04:05 Total Bilirubin 0.3 (0.0-1.0) mg/dL AST 36 (5-37) U/L ALT 13 (0-40) U/L Alkaline Phosphatase 65 (39-117) U/L Albumin 3.1 L (3.5-5.0) g/dL Urine 09/03/24 Range/Units 18:36 Urine Color Yellow Urine Appearance Cloudy Urine pH 5.0 (5.0-9.0) Ur Specific [place] 1.015 (1.005-1.025) Urine Protein 30 (1+) H (Neg-Trace) mg/dL Urine Glucose (UA) Negative (Negative) mg/dL Assessment and Plan Patient Active problem list reviewed?: Yes (1) Lymphadenopathy Status: Acute Assessment and plan: 1. This is a 79-year-old male with remote history of prostate cancer who is now presenting with severe hypercalcemia and acute renal failure along with extensive intra-abdominal lymphadenopathy and lung masses. He presented with a calcium level of 16.1 mg/dL, in July 2024 it was 9.3 mg/dL. Acute kidney injury with serum creatinine of 1.9 mg/dL from 1.[address] chest/abdomen and pelvis without contrast performed on 09/04/2024 shows several lung lesions largest on the left lung base measuring 2 cm and a right lesion measuring 2.1 cm, innumerable smaller nodes bilaterally, solid mass in the lower pole of the right kidney measuring 7 cm, conglomerate masses in the para-aortic region consistent with lymphadenopathy, 12 cm, enlarged 4.1 cm right inguinal lymph node, multiple masses in the mesentery measuring up to 3.1 cm in size, soft tissue mass which appears to arise from prostate measuring 2.4 x 10.42 and stent 0.6 cm confluent with the para-aortic lymphadenopathy. 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 This could be aggressive cancer originating in the right kidney. Lymphoma is also possibility. LDH and uric acid are elevated. PSA remains undetectable,unlikely for this to be metastatic prostate cancer. I discussed performing biopsy of either lung mass or retroperitoneal lymphadenopathy by intervention Radiology. Because of severe hypercalcemia and worsening kidney functions I am requesting inpatient biopsy. All of the above were discussed with patient, his and 2 daughters. 2. Hypercalcemia, acute renal insufficiency. 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 Thank you for the consultation, will follow with you. - Time Spent With Patient Time Spent with Patient (in minutes): 30
[2024-09-04 17:14] LABS: Lactate Dehydrogenase 717 U/L (118-273)
[2024-09-05] VITALS (7 sets, daily range): BP systolic 126–152; BP diastolic 63–72; PULSE 103–116; RESP 16–18; TEMP 36.3–36.8; O2SAT 97–100; BMI 21.7
--- NOTE | 2024-09-05 01:28 | CONS_ITS ---
DATE OF SERVICE: 09/04/2024 REFERRING PHYSICIAN: Kimberlee Pena NP REASON FOR CONSULTATION: Dysphagia. HISTORY OF PRESENT ILLNESS: The patient is a pleasant 79-year-old man, well known to me from prior evaluation. He was admitted to the hospital after presenting to the emergency room with complaints of weakness for several months, worse over 2 to 3 weeks prior to admission with associated urinary retention. GI consultation has requested regarding the patient's complaints of dysphagia. He states he has had some difficulty swallowing, which has been present relatively recently with his associated weakness and some vomiting. He also has a feeling of food sticking. He was evaluated by Speech Pathology who referred him for GI consultation regarding esophageal dysphagia. In the emergency department, he was evaluated with CT scanning as he was noted to have hypercalcemia and this showed lung lesions concerning for metastatic disease. There was also a question of a liver lesion. No esophageal abnormalities were reported. CT scanning of the abdomen and pelvis showed a soft tissue mass which appeared to be arising from the prostate with hydronephrosis and masses in the right kidney as well as pulmonary metastatic disease, mesenteric masses, and right inguinal lymphadenopathy. The patient reports having undergone hernia repair earlier in the year and developing a right groin mass postoperatively with associated pain. PAST MEDICAL HISTORY: 1. Diverticular disease. 2. Prostate cancer with radiation proctitis. 3. Hypertension. 4. Hyperlipidemia. 5. Left lower extremity DVT. 6. Osteoarthritis. PAST SURGICAL HISTORY: Includes prostatectomy, colonoscopy, ankle surgery, knee surgery, and umbilical hernia repair as well as the above right inguinal hernia repair. CURRENT MEDICATIONS: Current medication list is reviewed in the chart. ALLERGIES: THERE ARE NONE REPORTED. FAMILY HISTORY: This is reviewed with the patient and is noncontributory. SOCIAL HISTORY: There is no current tobacco, alcohol, or substance abuse. REVIEW OF SYSTEMS: SKIN: No pruritus. HEENT: Negative. CARDIOPULMONARY: No shortness of breath. GASTROINTESTINAL: As above. GENITOURINARY: Negative. NEUROPSYCHIATRIC: Negative. PHYSICAL EXAMINATION: GENERAL: Shows a pleasant male, lying comfortably in bed. VITAL SIGNS: Are reviewed in the electronic medical record and are stable. SKIN: Anicteric. HEENT: Shows no scleral icterus. NECK: Without lymphadenopathy or thyromegaly. LUNGS: Clear. HEART: Shows regular rate and rhythm. S1, S2. No murmur. ABDOMEN: Soft without focal masses or tenderness. There is a palpable mass in the right inguinal area, consistent with lymphadenopathy. EXTREMITIES: Without edema. LABORATORY DATA AND IMAGING STUDIES: Reviewed. IMPRESSION: Dysphagia. I have recommended further evaluation with barium swallow. He may have esophageal dysmotility. Depending on these results, further evaluation with endoscopy can be considered. I would also recommend Oncology consultation based on his imaging studies which appear to show metastatic disease arising from a genitourinary source. Thanks for asking me to see him. I will follow him in the hospital with you. MD BRANDEE Villatoro/YESI / [phone]
[2024-09-05] MEDS: Heparin Sodium,Porcine 5,000 UNIT/ML VIAL 5000 UNIT SUBCUT ×2 (04:10→15:49)
[2024-09-05] MEDS: 0.9 % Sodium Chloride 1,000 ML 150 ML IVCONT ×4 (04:11→21:54)
[2024-09-05 07:56] LABS: Anion Gap 12 (12-20); Blood Urea Nitrogen 54 mg/dL (9-16); Carbon Dioxide 27 mmol/L (22-29); Chloride 106 mmol/L (96-108); Creatinine Clr Calc Pharmacy 27.3; Estimated Glomerular Filt Rate 32; Glucose Random 95 mg/dL (60-115); Potassium 4.9 mmol/L (3.3-5.1); Sodium 140 mmol/L (135-145)
[2024-09-05 08:03] LABS: Prostate Specific Antigen < 0.10 ng/mL (<0.05-4.0)
[2024-09-05] MEDS: cefTRIAXone sodium 1 GM VIAL IVPUSH (08:05)
[2024-09-05] MEDS: Furosemide 20 MG/2 ML VIAL IVPUSH ×2 (08:06→16:47)
[2024-09-05] MEDS: 0.9 % Sodium Chloride Flush 3 ML SYRINGE IVFLUSH (08:06)
--- NOTE | 2024-09-05 08:20 | P.PNNP_ITS ---
Subjective Subjective Date of Service: 09/05/24 Interval history: 79 y/o pt with hx of prostate cancer s/p radiation and prostatectomy Presented 09/03 with profound weakness, nephrology following for MARYSE, hypercalcemia. blood pressure 75/50 on presentation, creatinine 1.9 (last creatinine 1.04 in July), calcium 12.5 (down from 16 on 09/03), PTH 12, vit D pending, H&H 11.6 & 35. creatinine 2.03 09/05, up from 1.7 09/04 CT abd/pelvis shows severe bilateral hydronephrosis secondary to soft tissue mass arising from prostate per radiology read. also shows pulmonary metastic disease, mesentaeric masses, para-aortic and inguinal lymphadenopathy. patient given aredia 90mg IV for hypercalcemia. patient has been on Normal saline drip at 150mL/hr and lasix IVP 20mg BID patient states he has significant weakness and not sure if he can get up, otherwise no new symptoms. Feels the same as yesterday per pt. states blood in urine and discomfort with urination/burning is chronic. states he was short of breath at home but this has resolved. denies other new symptoms. Physical Exam 2 Vital Signs: Vital Signs: Last Vital Signs Temp 97.9 F 09/05/24 07:07 Pulse 103 H 09/05/24 07:07 Resp 18 09/05/24 07:07 BP 152/72 H 09/05/24 07:07 Pulse Ox 100 09/05/24 07:07 O2 Del Method Room Air 09/05/24 07:07 BMI result Body Mass Index 21.7 Const: General: no acute distress, alert and awake Resp: Effort & Inspection: normal respiratory effort and able to speak in complete sentences Auscultation: clear to auscultation bilaterally Cardio: Rate: regular rate Rhythm: regular rhythm Heart sounds: S1 normal heart sound present and S2 normal heart sound present GI: Palpation (GI): Soft to palpation and nontender Extrem: General: No edema Objective Data Labs 09/04/24 04:05 09/05/24 06:47 Labs: Laboratory Results - last 24 hr 09/03/24 09/04/24 09/05/24 20:37 04:05 06:47 Sodium 140 Potassium 4.9 Chloride 106 Carbon Dioxide 27 Anion Gap 12 BUN 54 H Creatinine 2.03 H Estim Creat Clear Calc 27.3 Estimated GFR 32 Random Glucose 95 Calcium 12.5 H* D Lactate Dehydrogenase 717 H Carcinoembryonic Ag 2.90 Prostate Specific Ag < 0.10 Respiratory Panel Dawn See Note Adenovirus (Rapid PCR) Not Detected B.pert (TEM-PCR) Not Detected B.parapertussis DNA PCR Not Detected C. pneumoniae DNA (PCR) Not Detected Coronavirus OC43 (PCR) Not Detected Coronavirus HKU1 (PCR) Not Detected Coronavirus 229E (PCR) Not Detected Coronavirus NL63 (PCR) Not Detected Human Metapneumovir PCR Not Detected Influenza A (RT-PCR) Not Detected Influenza A (H1) PCR Not Detected Influ A (H1/09) PCR Not Detected Influenza A (H3) PCR Not Detected Influenza B (RT-PCR) Not Detected M. pneumoniae (PCR) Not Detected Parainfluenza 1 (PCR) Not Detected Parainfluenza 2 (PCR) Not Detected Parainfluenza 3 (PCR) Not Detected Parainfluenza 4 (PCR) Not Detected RSV (PCR) Not Detected Entero/Rhino (PCR) Not Detected SARS-CoV-2 RNA (RT-PCR) Not Detected Microbiology Microbiology Results: Microbiology 09/03/24 13:00 Blood - Venous Blood Culture - Preliminary No growth after 24 hours. 09/03/24 13:05 Blood - Venous Blood Culture - Preliminary No growth after 24 hours. 09/03/24 18:45 Urine clean catch - Clean Catch Midstream Urine Culture - Preliminary Culture too young to evaluate. Procedures Date of Service Date of Service: 09/05/24 Assessment & Plan Assessment and plan (1) MARYSE (acute kidney injury): Status: Acute (2) Hypercalcemia: Status: Acute (3) Hydronephrosis: Status: Acute Plan MARYSE secondary to urinary obstruction from pelvic masses; also had hypotension on arrival so may have component of hemodynamic MARYSE recommend IVF, avoid hypotension continue to hold gary inhibitor recommend urology consult to address hydronephrosis/resolve obstruction Hypercalcemia- improving most likely from malignancy given CT findings vitamin D levels pending- given patient taking one OTC pill daily, unlikely to be vit D intoxication recommend continue NS at 150ml/hr, continue lasix 20mg IVP BID to aid in excretion of calcium IV/subcu calcitonin not on formulary, will administer intranasal spray daily recommend daily electrolyte and renal function studies recommend avoiding nephrotoxins including nsaids recommend avoiding hypotension, check regular blood pressures and close I&O monitoring continue supportive care, will continue to follow Discussed with Dr Arias. Time Spent With Patient Time: Total time managing care of this patient today ____ minutes. Progress Note: Quality Stroke Does the patient have a stroke diagnosis?: No
[2024-09-05 08:21] LABS: Calcium 12.5 mg/dL (8.4-10.2)
--- NOTE | 2024-09-05 11:24 | MHC.CLN ---
CONSULT PT IS MODERATELY MALNOURISHED PT WITH MILDLY DEPLETED SUBCUTANEOUS FAT AND MUSCLE MASS WITH 17% SIGNIFICANT WT LOSS X 6 MONTHS REGULAR DIET IN PLACE PT REPORTED HE IS OVERWHELMED BY PORTION SIZE OF FOOD PT RECEPTIVE TO DRINKING ENSURE CLEAR AND MAGIC CUP FOR INCREASED KCALS ENSURE CLEAR TID TO PROVIDE 720KCALS, 24G PROTEIN MAGIC CUP TID TO PROVIDE 870KCALS, 27G PROTEIN WILL D/C ENSURE TID MONITOR PO INTAKE AND ENCOURAGE SUPPLEMENTS SEE FULL CLINICAL NUTRITION ASSESSMENT
[2024-09-05] MEDS: Calcitonin,Salmon,Synth Nasal 3.7 ML BOTTLE 1 SPRAY NOSTRILALT (12:13)
--- NOTE | 2024-09-05 12:48 | P.PNIM_ITS ---
Subjective Subjective Date of Service: 09/05/24 Interval History: Seen and examined this morning Follow-up for new diagnosis of cancer, hypercalcemia Generalized weakness improving Reports weak urine stream no pain with urination, no abdominal pain Review of Systems Review of Systems: Yes all other systems are reviewed and are negative Constitutional Constitutional: Denies chills and Denies fever(s) Cardiovascular Cardiovascular: Denies chest pain and Denies palpitations Gastrointestinal Gastrointestinal: Denies abdominal pain Endocrine Endocrine: Denies palpitations Physical Exam 2 Vital Signs: Vital Signs: Last Vital Signs Temp 98.3 F 09/05/24 11:08 Pulse 110 H 09/05/24 11:08 Resp 18 09/05/24 11:08 BP 126/63 09/05/24 11:08 Pulse Ox 97 09/05/24 11:08 O2 Del Method Room Air 09/05/24 11:08 BMI result Body Mass Index 21.7 Const: General: cooperative, comfortable, no acute distress, alert and awake Nutritional Appearance: average body habitus Orientation/consciousness: p atient oriented x3 Resp: Effort & Inspection: normal respiratory effort, able to speak in complete sentences, no respiratory distress and no use of accessory muscles Cardio: Rate: regular rate GI: Inspection: No distended Palpation (GI): Soft to palpation Neuro: General: patient oriented x3, moves all extremities and CN's II-XI intact bilaterally Objective Data Active Medications Acetaminophen (Acetaminophen 325 Mg Tablet) 650 mg PO Q6H PRN PRN Reason: Pain, Mild 1-3,fever,headache Calcitonin [place] (Calcitonin,[place],Synth Nasal 3.7 Ml Bottle) 1 spray NOSTRILALT DAILY [facility] Last Admin: 09/05/24 12:13 Dose: 1 spray Documented By: RUSTAM Ceftriaxone Sodium (Ceftriaxone Sodium 1 Gm Vial) 1 gm IVPUSH Q24H [facility] Last Admin: 09/05/24 08:05 Dose: 1 gm Documented By: RUSTAM Furosemide (Furosemide 20 Mg/2 Ml Vial) 20 mg IVPUSH BID@0900,1800 [facility]; Protocol Last Admin: 09/05/24 08:06 Dose: 20 mg Documented By: RUSTAM Heparin Sodium (Porcine) (Heparin Sodium,Porcine 5,000 Unit/Ml Vial) 5,000 unit SUBCUT Q12H [facility] Last Admin: 09/05/24 04:10 Dose: 5,000 unit Documented By: PETEY Sodium Chloride (Ns) 1,000 mls @ 150 mls/hr IVCONT .Q6H40M [facility] Stop: 09/06/24 23:59 Last Admin: 09/05/24 10:31 Dose: 150 mls/hr Documented By: RUSTAM Magnesium Hydroxide (Milk Of Magnesia 30 Ml Oral.Susp) 30 ml PO DAILY PRN PRN Reason: Constipation Melatonin (Melatonin 3 Mg Tablet) 6 mg PO BEDTIME PRN PRN Reason: Insomnia Ondansetron HCl (Ondansetron Hcl 4 Mg/2 Ml Vial) 4 mg IVPUSH Q8H PRN PRN Reason: Nausea and Vomiting Sodium Chloride (0.9 % Sodium Chloride Flush 3 Ml Syringe) 3 ml IVFLUSH QSHIFT [facility] Last Admin: 09/05/24 08:06 Dose: 3 ml Documented By: RUSTAM Labs 09/04/24 04:05 09/05/24 06:47 Labs: Laboratory Results - last 24 hr 09/04/24 09/05/24 04:05 06:47 Anion Gap 12 Estim Creat Clear Calc 27.3 Estimated GFR 32 Random Glucose 95 Calcium 12.5 H* D Lactate Dehydrogenase 717 H Carcinoembryonic Ag 2.90 Prostate Specific Ag < 0.10 Microbiology Microbiology Results: Microbiology 09/03/24 18:45 Urine Culture - Final Urine clean catch - Clean Catch Midstream 09/03/24 13:00 Blood Culture - Preliminary Blood - Venous No growth after 24 hours. 09/03/24 13:05 Blood Culture - Preliminary Blood - Venous No growth after 24 hours. Assessment and Plan (1) Hydronephrosis: Status: Acute (2) Hypercalcemia: Status: Acute (3) MARYSE (acute kidney injury): Status: Acute Plan This is an 79 year old male with remote history of prostate cancer, hypertension, hyperlipidemia, history of left lower extremity DVT no longer on Eliquis due to bleeding admitted with SIRS, weakness found to have hypercalcemia and imaging concerning for diffuse metastases of primary Hypercalcemia Due to underlying cancer metastases, unknown primary normal PTH Continue IV fluids and lasix and intranasal calcitonin nephrology following Abdominal CT showing soft tissue mass arising from the prostate, soft tissue masses involving the right kidney, mesenteric mass and right inguinal lymphadenopathy along with possible liver lesion. PSA undetectable, probable kidney cancer versus lymphoma Seen by Oncology-plan for biopsy in a.m - due to severe hypercalcemia and worsening renal function will be done as inpatient, NPO at midnight Weakness and lethargy no obvious signs of infection. Urine culture and blood cultures negative. RPP negative recent weight loss of more than 20 lbs last few months, poor appetite Likely due to above MARYSE Creatinine trending up Severe hydro seen on imaging Urology consult pending Continue IV fluids Hold benazepril follow BMP Possible UTI Culture negative, we will stop ceftriaxone Normocytic anemia, non blood loss iron 22 H/H stable Dysphagia Speech therapy evaluation -recommended GI consultation Seen by GI, recommended barium swallow Hypertension stable BP Amlodipine-benazepril on hold Mental health continue home medication Constipation Resume home MiraLax History of DVT No longer on Eliquis DVT prophylaxis with heparin Full code Patient requires ongoing inpatient stay for management of hypercalcemia requiring IV Lasix, IV fluid, hydronephrosis requiring specialist evaluation, MARYSE and plan for biopsy due to metastatic cancer Quality Stroke Does the patient have a stroke diagnosis?: No VTE Prior VTE?: No VTE Risk Level:: Medical - moderate - high VTE Device Contraindication: Treatment Not Indicated VTE Drug Contraindication: N/A - Med Ordered
--- NOTE | 2024-09-05 12:53 | MHC.SL.SWA ---
Speech Pathologist Impression: Risk of Aspiration Due to: Dysphasia Diet Status: Continue on regular diet with thin liquids, pills whole with liquid or puree. Discharge speech/swallow service. Liquid Consistency and Strategies for Safe Swallow: Liquid Intake Recommendation: Thin Liquid Intake Strategies: Solid Food Consistency: Dietary Recommendations: Regular Additional Modifications to Solid Foods: Oral Medication Intake: Whole with Liquid Please contact the pharmacy regarding appropriate crushable or liquid drug formulations that are available whenever modified delivery is recommended. Compensatory Strategies and Precautions to be Taken for Safe Swallow: Sitting Upright (90 deg) Liquids from Cup Liquids from Straw Small Bites and Sips Alternate Liquids/Solids Supervision While Eating and Drinking for Safe Swallow: None Needed Foods to Avoid: Swallowing Recommended Treatments: Recommendation for Speech: Further Testing Needed Comment:Patient seen this a.m. for toleration of regular diet with thin liquids. Patient had mostly finished his breakfast, noted that he had received a remarkable amount of farah with his meal, which he had eaten only one piece. On inquiry if he had any difficulty of sensation of it getting stuck, patient responded that he took small bites and chewed thoroughly and had no difficulty. Patient had generally enjoyed the meal. Patient given additional strategy of taking sips of liquids after bites of food, which he agreed would be helpful. Patient appears to be tolerating recommended diet well, which is the least restrictive diet recommended. No further speech services indicated at this time, will discharge patient from speech. Frequency/Duration: Date Range for Service Req: Timeline to reassess: Experimental Electronics Developer Clinican/Clinical Fellow: No Supervisory Statement: I have reviewed and agree with the student/clinical fellow's documentation: N/A Speech Language Pathologist: Poly Ennis M.A., CCC-PAIRING MACHINE OPERATOR
[2024-09-05 13:17] LABS: Phosphorus 3.4 mg/dL (2.7-4.5); Uric Acid 10.6 mg/dL (3.4-7.0)
--- NOTE | 2024-09-05 13:21 | P.PNGI_ITS ---
Subjective Subjective Date of Service: 09/05/24 Interval History: feels stronger Critical Care Time (minutes): 0 Physical Exam 2 Vital Signs: Vital Signs: Last Vital Signs Temp 98.3 F 09/05/24 11:08 Pulse 110 H 09/05/24 11:08 Resp 18 09/05/24 11:08 BP 126/63 09/05/24 11:08 Pulse Ox 97 09/05/24 11:08 O2 Del Method Room Air 09/05/24 11:08 BMI result Body Mass Index 21.7 GI: Other: abdomen is soft and nontender Objective Data Labs 09/04/24 04:05 09/05/24 06:47 Labs: Laboratory Results - last 24 hr 09/04/24 09/05/24 04:05 06:47 Sodium 140 Potassium 4.9 Chloride 106 Carbon Dioxide 27 Anion Gap 12 BUN 54 H Creatinine 2.03 H Estim Creat Clear Calc 27.3 Estimated GFR 32 Random Glucose 95 Uric Acid 10.6 H Calcium 12.5 H* D Phosphorus 3.4 Lactate Dehydrogenase 717 H Carcinoembryonic Ag 2.90 Prostate Specific Ag < 0.10 Microbiology Microbiology Results: Microbiology 09/03/24 18:45 Urine clean catch - Clean Catch Midstream Urine Culture - Final 09/03/24 13:00 Blood - Venous Blood Culture - Preliminary No growth after 24 hours. 09/03/24 13:05 Blood - Venous Blood Culture - Preliminary No growth after 24 hours. Procedures Date of Service Date of Service: 09/05/24 Progress Note: A&P Assessment and plan (1) Renal mass, right: Status: Acute Assessment and Plan: I reviewed the lab tests and imaging studies with Mr Lucero. We discussed the evaluations from multiple consultants, and the need for tissue diagnosis, which is pending. This appears consistent with metastatic renal cancer clinically. His swallowing problem has not changed. Radiology studies are pending. Today's visit was 35 minutes. Time Spent With Patient Time: Total time managing care of this patient today ____ minutes. Quality Stroke Does the patient have a stroke diagnosis?: No VTE Prior VTE?: No VTE Risk Level:: Medical - moderate - high VTE Device Contraindication: Treatment Not Indicated VTE Drug Contraindication: N/A - Med Ordered
--- NOTE | 2024-09-05 13:23 | PM.UROCN ---
History of Present Illness Consult details Consult date: 09/05/24 Narrative: 79-year-old male with history of prostate cancer s/p radiation and prostatectomy, HTN, HLD and left lower extremity DVT on Eliquis followed by [place] [facility] as in outpatient setting for h/o prostate cancer. Presented to the emergency department with complaint of profound weakness for the past few months, worsening over the last 2-3 weeks. Recently had indwelling urinary catheter for retention/clots, but has since been removed. [facility] Past Medical History Medical History Urinary retention Rene hematuria Acute urinary retention Radiation cystitis Hypertension Diverticulosis Overweight (BMI 25.0-29.9) History of prostate cancer Renal cyst Vitamin D deficiency Osteoarthritis of left knee Impaired fasting glucose Pure hypercholesterolemia Benign essential hypertension Family History Family History Father Cancer Mother Colon cancer Surgical History Surgical History Hx of right inguinal hernia repair (02/16/23) History of ankle surgery History of colonoscopy History of meniscectomy of left knee (~06/05/12) Hx of prostatectomy Hx of umbilical hernia repair Social History Social History Household Members: Spouse Housing: House Are you a primary foster care social worker to a significant other at home: No Do you presently have visiting nurse or other home services: No Alcohol intake: current Alcohol intake frequency: 0-2 drinks per day Alcohol type: beer Comment: . 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 Cognitive needs: No Hearing needs: No Vision needs: Yes (Glasses) Meds Allergies Allergy/AdvReac Type Severity Reaction Status Date / Time No Known Allergies Allergy Verified 09/03/24 12:34 Active Medications: Current Medications Acetaminophen (Acetaminophen 325 Mg Tablet) 650 mg PO Q6H PRN PRN Reason: Pain, Mild 1-3,fever,headache Calcitonin [place] (Calcitonin,[place],Synth Nasal 3.7 Ml Bottle) 1 spray NOSTRILALT DAILY [facility] Last Admin: 05/22/25 12:13 Dose: 1 spray Furosemide (Furosemide 20 Mg/2 Ml Vial) 20 mg IVPUSH BID@0900,1800 [facility]; Protocol Last Admin: 09/05/24 08:06 Dose: 20 mg Heparin Sodium (Porcine) (Heparin Sodium,Porcine 5,000 Unit/Ml Vial) 5,000 unit SUBCUT Q12H [facility] Last Admin: 09/05/24 04:10 Dose: 5,000 unit Sodium Chloride (Ns) 1,000 mls @ 150 mls/hr IVCONT .Q6H40M [facility] Stop: 09/06/24 23:59 Last Admin: 09/05/24 10:31 Dose: 150 mls/hr Magnesium Hydroxide (Milk Of Magnesia 30 Ml Oral.Susp) 30 ml PO DAILY PRN PRN Reason: Constipation Melatonin (Melatonin 3 Mg Tablet) 6 mg PO BEDTIME PRN PRN Reason: Insomnia Ondansetron HCl (Ondansetron Hcl 4 Mg/2 Ml Vial) 4 mg IVPUSH Q8H PRN PRN Reason: Nausea and Vomiting Polyethylene Glycol (Polyethylene Glycol 3350 17 Gm Powd.Pack) 17 gm PO DAILY [facility] Sodium Chloride (0.9 % Sodium Chloride Flush 3 Ml Syringe) 3 ml IVFLUSH QSHIFT [facility] Last Admin: 09/05/24 08:06 Dose: 3 ml Trazodone HCl (Trazodone Hcl 50 Mg Tablet) 50 mg PO BEDTIME [facility] Physical Exam Vital Signs: Vital Signs: Last Vital Signs Temp 98.3 F 09/05/24 11:08 Pulse 110 H 09/05/24 11:08 Resp 18 09/05/24 11:08 BP 126/63 09/05/24 11:08 Pulse Ox 97 09/05/24 11:08 O2 Del Method Room Air 09/05/24 11:08 BMI result Body Mass Index 21.7 Results Labs 09/04/24 04:05 09/05/24 06:47 Labs: Abnormal lab results 09/04/24 09/05/24 Range/Units 04:05 06:47 BUN 54 H (9-16) mg/dL Creatinine 2.03 H (0.5-1.4) mg/dL Uric Acid 10.6 H (3.4-7.0) mg/dL Calcium 12.5 H* D (8.4-10.2) mg/dL Lactate Dehydrogenase 717 H (118-273) U/L BMP 09/05/24 06:47 Sodium 140 Potassium 4.9 Chloride 106 Carbon Dioxide 27 BUN 54 H Creatinine 2.03 H Calcium 12.5 H* D Urine 09/03/24 Range/Units 18:36 Urine Color Yellow Urine Appearance Cloudy Urine pH 5.0 (5.0-9.0) Ur Specific [place] 1.015 (1.005-1.025) Urine Protein 30 (1+) H (Neg-Trace) mg/dL Urine Glucose (UA) Negative (Negative) mg/dL Imaging CT scan - chest: report reviewed CT scan - pelvis: report reviewed and image reviewed Additional studies: Date of Service: 09/04/24 CLINICAL HISTORY: hypercalcemia, ? mets CT chest without contrast Comparison: CT/SR - CT CHEST WO IV CON - 12/18/23 14:53 EDT Findings: There is no cardiomegaly. There is severe atherosclerotic disease of the coronary arteries. No significant mediastinal adenopathy. The thyroid gland is mildly heterogeneous, nonspecific. There are several new variable-sized lung lesions, the largest on the left anteriorly at the left base measuring up to 2 cm. The largest on the right is noted within the right lower lobe on axial 120 measuring up to 2.1 cm. There are innumerable smaller nodules bilaterally. Additionally there is a focus of tree-in-bud density within the apical segment of the left lower lobe, axial images 50 3-56. No effusion. No pneumothorax. No destructive bone lesion. The visualized upper abdomen demonstrates questioned ill-defined hepatic lesion posteriorly on image 132. Nonspecific nodularity in the suprarenal region on the right. Impression: Innumerable new lung lesions concerning for metastatic disease. See details above. Questioned liver lesion. Date of Service: 09/04/24 EXAMINATION: CT ABDOMEN PELVIS WITHOUT IV CONTRAST HISTORY: hypercalcemia, ? mets COMPARISON: Comparison is made with the prior examination dated 02/22/2024. TECHNIQUE: CT scan of the abdomen and pelvis was performed without contrast using standard departmental protocol. Coronal and sagittal reformatted images were generated and reviewed. Oral contrast material was not administered at the request of the referring physician. This CT exam was performed with one or more of the following dose reduction techniques: automated exposure control, adjustment of the mA and/or kV according to patient size, use of iterative reconstruction technique. DLP: 488 mGy-cm FINDINGS: LOWER CHEST: There are nodules at the lung bases measuring up to 1.9 cm on the right and 1.9 cm on the left. There is no pleural effusion. CARDIOVASCULATURE: The heart is normal in size. There is no pericardial effusion. LIVER: The liver is normal in size and contour. There is a probable 10 mm cyst in the left lobe. GALLBLADDER / BILE DUCTS: The gallbladder is unremarkable. There is no intra or extrahepatic biliary ductal dilatation. SPLEEN: The spleen is normal in size and has an unremarkable unenhanced appearance. PANCREAS: The pancreas has an unremarkable unenhanced appearance. ADRENAL GLANDS: Unremarkable. KIDNEYS/RETROPERITONEUM: There is marked right renal cortical thinning and severe hydronephrosis as seen previously. Multiple cysts are noted. There is a solid mass at the lower pole measuring 7.0 cm in size. The left kidney demonstrates moderate to severe hydronephrosis. LYMPH NODES: There are conglomerate masses in the para-aortic region, consistent with lymphadenopathy. These measure over 12 cm in aggregate. There is an enlarged 4.1 cm right inguinal lymph node. VASCULATURE: The abdominal aorta demonstrates atherosclerotic calcification, but is normal in caliber. MESENTERY/PERITONEUM: Multiple masses are seen in the mesentery and omentum measuring up to 3.1 cm in size. No ascites is identified. There is no free intraperitoneal gas. STOMACH: The stomach is collapsed, limiting evaluation. SMALL BOWEL: The small bowel is normal in caliber. COLON: There is diverticulosis of the colon, without evidence of diverticulitis. APPENDIX: Normal. URINARY BLADDER/PELVIC ORGANS: There is no wall thickening of the right anterolateral aspect of the urinary bladder. There is a soft tissue mass which appears to be arising from the prostate measuring at least 21.4 x 10.4 x 10.6 cm. Confluent with the above described para-aortic lymphadenopathy. BONES / SOFT TISSUES: There is mild degenerative disc disease of the spine. IMPRESSION: 1. Soft tissue mass which appears to be arising from the prostate measuring at least 21.4 x 10.4 x 10.6 cm. This is confluent with conglomerate para-aortic lymphadenopathy. 2. Moderate to severe bilateral hydronephrosis secondary to the above-described masses. Soft tissue masses also involve the right kidney which again demonstrates severe cortical thinning. 3. Pulmonary metastatic disease. 4. Mesenteric masses and right inguinal lymphadenopathy. Assessment and Plan (1) Hypercalcemia: Status: Acute (2) Lymphadenopathy: Status: Acute (3) Hydronephrosis: Status: Acute (4) Renal mass, right: Status: Acute Plan h/o prostate cancer, radiation cystitis. PSA negligible, 09/05/24-<0.10 ng/mL Admitted with weakness hypercalcemia. Right kidney, chronic hydro, cortical thinning, 7 cm renal mass, significant lymphadenaphy, CT chest c/w mets, Oncology following recommend IR biopsy. LACEY may improve with [place] and hydration, if persistent left hydronephrosis, pt may benefit from left nephrostomy tube Procedures Date of Service Date of Service: 09/05/24
[2024-09-05] MEDS: traZODone HCL 50 MG TABLET PO (19:57)
--- NOTE | 2024-09-05 21:26 | PM.EVENT ---
Event Note Date of Service: 09/05/24 Event Note: Blood culture with Gram-positive rods. Initiating vancomycin until cultures finalized Time Spent With Patient Time: Total time managing care of this patient today ____ minutes.
[2024-09-05] MEDS: vancomycin HCL 1,000 MG, vancomycin HCL 750 MG in 0.9 % Sodium Chloride 500 ML 267.5 MG IV (22:44)
--- NOTE | 2024-09-05 22:56 | PHA.PROG ---
Admission Date/Time: September 03, 2024 14:47 Indication: BACTEREMIA Weight in k.7 kg Serum Creatinine - Last 168 Hours 09/03/24 09/04/24 09/05/24 13:01 04:05 06:47 Creatinine 1.90 H 1.70 H 2.03 H Estimated CrCl and GFR - Last 168 Hours 09/03/24 09/04/24 09/05/24 13:01 04:05 06:47 Estim Creat Clear Calc 29.2 32.6 27.3 Estimated GFR 34 39 32 Vancomycin Loading Dose: 1750mg Current Vancomycin Dosing Regimen: 750mg q24h Vancomycin Monitoring using AUC goal of 400 - 600 range with trough as surrogate marker: 538, predicted trough 18.3 Date and Time for next Vancomycin Level to be drawn: 09/06 @ 2100 Pharmacist Comments on Vancomycin Plan: Poor [place] function, dose -->trough -->dose Vancomycin dosing will take advantage of [employer] as a clinical decision support tool that uses Bayesian modeling to calculate individual patient's pharmacokinetic parameters and forecast the patient's drug concentration time course with the target goal AUC 24 range of 400 - 600 mg/L/hr.
[2024-09-06] VITALS (17 sets, daily range): BP systolic 114–164; BP diastolic 60–102; PULSE 85–120; RESP 14–21; TEMP 36.3–37.3; O2SAT 93–100
[2024-09-06 07:14] LABS: Creatinine Clr Calc Pharmacy 28.7; Estimated Glomerular Filt Rate 34
[2024-09-06 07:35] LABS: Anion Gap 14 (12-20); Blood Urea Nitrogen 58 mg/dL (9-16); Calcium 11.8 mg/dL (8.4-10.2); Carbon Dioxide 24 mmol/L (22-29); Chloride 107 mmol/L (96-108); Glucose Random 104 mg/dL (60-115); Potassium 4.4 mmol/L (3.3-5.1); Sodium 141 mmol/L (135-145)
[2024-09-06] MEDS: 0.9 % Sodium Chloride 1,000 ML 150 ML IVCONT (08:39)
[2024-09-06] MEDS: Furosemide 20 MG/2 ML VIAL IVPUSH ×2 (08:40→18:07)
--- NOTE | 2024-09-06 08:59 | P.PNNP_ITS ---
Subjective Subjective Date of Service: 09/06/24 Interval history: 79 y/o pt with hx of prostate cancer s/p radiation and prostatectomy Presented 09/03 with profound weakness, nephrology following for MARYSE, hypercalcemia. hypotensive on presentation, hypovolemic has been receiving IVF for elevated calcium creatinine down today to 1.93 from 2.03 on 09/05 calcium is 11.8 today, down from 12.5 yesterday patient continues with NS at 150mL/hr and 20mg IVP lasix BID to correct calcium patient is making urine, 3L over last [address] abd/pelvis shows severe b/l hydro and a 7cm renal mass urology and oncology following- plan for biopsy today patient states he feels the same today, no changes. Physical Exam 2 Vital Signs: Vital Signs: Last Vital Signs Temp 97.9 F 09/06/24 07:39 Pulse 105 H 09/06/24 07:39 Resp 18 09/06/24 07:39 BP 141/74 H 09/06/24 07:39 Pulse Ox 97 09/06/24 07:39 O2 Del Method Room Air 09/06/24 07:39 BMI result Body Mass Index 21.7 Const: General: no acute distress, alert and awake Resp: Effort & Inspection: normal respiratory effort and able to speak in complete sentences Auscultation: clear to auscultation bilaterally Cardio: Rate: regular rate Rhythm: regular rhythm Heart sounds: S1 normal heart sound present and S2 normal heart sound present GI: Palpation (GI): Soft to palpation and nontender Extrem: General: No edema Objective Data Labs 09/04/24 04:05 09/06/24 06:47 Labs: Laboratory Results - last 24 hr 09/05/24 09/06/24 06:47 06:47 Sodium 141 Potassium 4.4 Chloride 107 Carbon Dioxide 24 Anion Gap 14 BUN 58 H Creatinine 1.93 H Estim Creat Clear Calc 28.7 Estimated GFR 34 Random Glucose 104 Uric Acid 10.6 H Calcium 11.8 H Phosphorus 3.4 Microbiology Microbiology Results: Microbiology 09/03/24 13:00 Blood - Venous Blood Culture - Preliminary Gram positive lesly 09/03/24 13:05 Blood - Venous Blood Culture - Preliminary No growth after 48 hours. 09/03/24 18:45 Urine clean catch - Clean Catch Midstream Urine Culture - Final Procedures Date of Service Date of Service: 09/06/24 Assessment & Plan Assessment and plan (1) MARYSE (acute kidney injury): Status: Acute (2) Hypercalcemia: Status: Acute (3) Hydronephrosis: Status: Acute Plan MARYSE secondary to urinary obstruction from pelvic masses; also had hypotension on arrival so may have component of hemodynamic MARYSE Mild improvement in MARYSE recommend continuing NS at 150mL/hr, avoid hypotension continue to hold gary inhibitor b/l hydronephrosis likely contributing to MARYSE- urology and oncology following Hypercalcemia- improving most likely from malignancy given CT findings vitamin D levels pending recommend continue NS at 150ml/hr, continue lasix 20mg IVP BID to aid in excretion of calcium IV/subcu calcitonin not on formulary, will administer intranasal spray daily- continue until calcium levels normalize- pt did recieve bisphophonate x1, this response will be delayed, will eventually need ongoing bisphosphonate therapy for management if hypercalcemia persists. recommend daily electrolyte and renal function studies recommend avoiding nephrotoxins including nsaids recommend avoiding hypotension, check regular blood pressures and close I&O monitoring continue supportive care, will continue to follow Discussed with Dr Arias. Time Spent With Patient Time: Total time managing care of this patient today ____ minutes. Progress Note: Quality Stroke Does the patient have a stroke diagnosis?: No
--- NOTE | 2024-09-06 10:13 | MHC.CLN ---
F/U PT IS MODERATELY MALNOURISHED SEE FULL CLINICAL NUTRITION ASSESSMENT DATED 09/05/24 PT WITH MILDLY DEPLETED SUBCUTANEOUS FAT AND MUSCLE MASS WITH 17% SIGNIFICANT WT LOSS X 6 MONTHS CURRENTLY NPO WHEN DIET TO RESUME; RE-START ENSURE CLEAR TID TO PROVIDE 720KCALS, 24G PROTEIN RE-START MAGIC CUP TID TO PROVIDE 870KCALS, 27G PROTEIN FOLLOWING FOR DIET ADVANCEMENT RD CAN BE REACHED DURING OFF HOURS VIA TIGER CONNECT IF NEEDED
--- NOTE | 2024-09-06 10:29 | MHC.CM.PN ---
Per ROUNDS discussion, Patient is not yet medically cleared for dc (Biopsy today); Patient may benefit from a PT Eval to assist with disposition (Home new vna vs str); CM will continue to follow.
[2024-09-06 12:09] LABS: Hemoglobin 11.4 g/dl (14.0-18.0); Mean Corpuscular HGB Conc 32.6 g/dl (31.0-36.0); Mean Corpuscular Hemoglobin 28.6 pg (27.0-33.0); Mean Corpuscular Volume 87.7 fL (80.0-98.0); Mean Platelet Volume 8.2 fL (9.4-12.4); Platelet Count 155 X10*3/uL (160-400); Red Blood Count 3.99 X10*6/uL (4.60-5.80); Red Cell Distribution Width 14.7 % (11.0-16.0); White Blood Count 8.6 X10*3/uL (4.8-10.8)
[2024-09-06 12:15] LABS: INTERNATIONAL NORM RATIO 1.2 (0.9-1.1); Prothrombin Time 13.4 SEC (10.9-12.4)
[2024-09-06] MEDS: fentaNYL citrate/PF 100 MCG/2 ML VIAL 50 MCG IVPUSH (13:40)
[2024-09-06] MEDS: Midazolam HCl 2 MG/2 ML VIAL 1 MG IVPUSH (13:40)
--- NOTE | 2024-09-06 13:44 | P.PNIM_ITS ---
Subjective Subjective Date of Service: 09/06/24 Interval History: seen and examined this morning follow up for hypercalcemia, MARYSE, probable new cancer Now with hematuria weakness improving Review of Systems Review of Systems: Yes all other systems are reviewed and are negative Constitutional Constitutional: Denies chills and Denies fever(s) Cardiovascular Cardiovascular: Denies chest pain, Denies palpitations and Denies dyspnea Respiratory Respiratory: Denies cough and Denies dyspnea Endocrine Endocrine: Denies palpitations Physical Exam 2 Vital Signs: Vital Signs: Last Vital Signs Temp 97.9 F 09/06/24 11:20 Pulse 115 H 09/06/24 13:30 Resp 14 09/06/24 13:30 BP 130/82 09/06/24 13:30 Pulse Ox 100 09/06/24 13:30 O2 Del Method Nasal Cannula 09/06/24 13:30 O2 Flow Rate 2 09/06/24 13:30 BMI result Body Mass Index 21.7 Const: General: cooperative, comfortable, no acute distress, alert and awake Nutritional Appearance: average body habitus Orientation/consciousness: p atient oriented x3 Resp: Effort & Inspection: normal respiratory effort, able to speak in complete sentences, no respiratory distress and no use of accessory muscles Cardio: Rate: regular rate GI: Inspection: No distended Palpation (GI): Soft to palpation Neuro: General: patient oriented x3, moves all extremities and CN's II-XI intact bilaterally Objective Data Active Medications Acetaminophen (Acetaminophen 325 Mg Tablet) 650 mg PO Q6H PRN PRN Reason: Pain, Mild 1-3,fever,headache Calcitonin [place] (Calcitonin,[place],Synth Nasal 3.7 Ml Bottle) 1 spray NOSTRILALT DAILY ON LICENSE OF [facility] Last Admin: 09/05/24 12:13 Dose: 1 spray Documented By: RUSTAM Furosemide (Furosemide 20 Mg/2 Ml Vial) 20 mg IVPUSH BID@0900,1800 ON LICENSE OF [facility]; Protocol Last Admin: 09/06/24 08:40 Dose: 20 mg Documented By: HEDY Heparin Sodium (Porcine) (Heparin Sodium,Porcine 5,000 Unit/Ml Vial) 5,000 unit SUBCUT Q12H ON LICENSE OF [facility] Last Admin: 09/06/24 02:33 Dose: Not Given Documented By: LISSETT Non-Admin Reason: See Note Sodium Chloride (Ns) 1,000 mls @ 150 mls/hr IVCONT .Q6H40M ON LICENSE OF [facility] Stop: 09/06/24 23:59 Last Infusion: 09/06/24 12:29 Dose: 150 mls/hr Documented By: HEDY Vancomycin HCl 750 mg/ Sodium (Chloride) 265 mls @ 265 mls/hr IV Q24H ON LICENSE OF [facility] Magnesium Hydroxide (Milk Of Magnesia 30 Ml Oral.Susp) 30 ml PO DAILY PRN PRN Reason: Constipation Melatonin (Melatonin 3 Mg Tablet) 6 mg PO BEDTIME PRN PRN Reason: Insomnia Ondansetron HCl (Ondansetron Hcl 4 Mg/2 Ml Vial) 4 mg IVPUSH Q8H PRN PRN Reason: Nausea and Vomiting Pharmacy Consult (Consult Rx Vancomycin Dosing) 1 each MISCELLANE DAILY PRN PRN Reason: Consult order Polyethylene Glycol (Polyethylene Glycol 3350 17 Gm Powd.Pack) 17 gm PO DAILY ON LICENSE OF [facility] Last Admin: 09/06/24 09:27 Dose: Not Given Documented By: HEDY Non-Admin Reason: NPO Sodium Chloride (0.9 % Sodium Chloride Flush 3 Ml Syringe) 3 ml IVFLUSH QSHIFT ON LICENSE OF [facility] Last Admin: 09/06/24 08:39 Dose: Not Given Documented By: HEDY Non-Admin Reason: IV Running Trazodone HCl (Trazodone Hcl 50 Mg Tablet) 50 mg PO BEDTIME ON LICENSE OF [facility] Last Admin: 09/05/24 19:57 Dose: 50 mg Documented By: LISSETT Labs 09/06/24 12:01 09/06/24 06:47 Labs: Laboratory Results - last 24 hr 09/06/24 09/06/24 06:47 12:01 MCV 87.7 MCH 28.6 MCHC 32.6 RDW 14.7 Plt Count 155 L MPV 8.2 L Absolute Nucleated RBC 0.000 Nucleated RBC % (auto) 0.0 PT 13.4 H INR 1.2 H Anion Gap 14 Estim Creat Clear Calc 28.7 Estimated GFR 34 Random Glucose 104 Calcium 11.8 H Microbiology Microbiology Results: Microbiology 09/03/24 13:00 Blood Culture - Final Blood - Venous Bacillus species 09/03/24 13:05 Blood Culture - Preliminary Blood - Venous No growth after 48 hours. Assessment and Plan (1) Renal mass, right: Status: Acute (2) Hydronephrosis: Status: Acute (3) Hypercalcemia: Status: Acute (4) MARYSE (acute kidney injury): Status: Acute Plan This is an 79 year old male with remote history of prostate cancer, hypertension, hyperlipidemia, history of left lower extremity DVT no longer on Eliquis due to bleeding admitted with SIRS, weakness found to have hypercalcemia and imaging concerning for diffuse metastases of primary Hypercalcemia Due to underlying cancer metastases, unknown primary normal PTH calcium trending down to 11.8 Continue IV fluids and lasix and intranasal calcitonin nephrology following Abdominal CT showing soft tissue mass arising from the prostate, soft tissue masses involving the right kidney, mesenteric mass and right inguinal lymphadenopathy along with possible liver lesion. PSA undetectable, probable kidney cancer versus lymphoma Seen by Oncology-plan for biopsy today- due to severe hypercalcemia and worsening renal function will be done as inpatient Weakness and lethargy no obvious signs of infection. Urine culture and blood cultures negative. RPP negative recent weight loss of more than 20 lbs last few months, poor appetite Likely due to above MARYSE Creatinine stable Severe hydro seen on imaging seen by Urology recommended medina placement Continue IV fluids Hold benazepril follow BMP Hematuria due to medina placement for above CBI follow CBC Possible UTI Culture negative, we will stop ceftriaxone Normocytic anemia, non blood loss iron 22 H/H stable Dysphagia Speech therapy evaluation -recommended GI consultation Seen by GI, recommended barium swallow Hypertension stable BP Amlodipine-benazepril on hold Mental health continue home medication Constipation Resume home MiraLax History of DVT No longer on Eliquis DVT prophylaxis -stop heparin for hematuria; mechanical devices ordered Full code Patient requires ongoing inpatient stay for management of hypercalcemia requiring IV Lasix, IV fluid, hydronephrosis requiring specialist evaluation, MARYSE and plan for biopsy due to metastatic cancer Quality Stroke Does the patient have a stroke diagnosis?: No VTE Prior VTE?: No VTE Risk Level:: Medical - moderate - high VTE Device Contraindication: Treatment Not Indicated VTE Drug Contraindication: N/A - Med Ordered
--- NOTE | 2024-09-06 14:08 | P.PNGI_ITS ---
Subjective Subjective Date of Service: 09/06/24 Interval History: feeling better tolerating diet still with some dysphagia Critical Care Time (minutes): 0 Physical Exam 2 Vital Signs: Vital Signs: Last Vital Signs Temp 97.9 F 09/06/24 11:20 Pulse 112 H 09/06/24 14:05 Resp 21 H 09/06/24 14:05 BP 114/70 09/06/24 14:05 Pulse Ox 100 09/06/24 14:05 O2 Del Method Nasal Cannula 09/06/24 14:05 O2 Flow Rate 2 09/06/24 14:05 BMI result Body Mass Index 21.7 GI: Other: abdomen is soft and nontender Objective Data Labs 09/06/24 12:01 09/06/24 06:47 Labs: Laboratory Results - last 24 hr 09/06/24 09/06/24 06:47 12:01 WBC 8.6 RBC 3.99 L Hgb 11.4 L Hct 35.0 L MCV 87.7 MCH 28.6 MCHC 32.6 RDW 14.7 Plt Count 155 L MPV 8.2 L Absolute Nucleated RBC 0.000 Nucleated RBC % (auto) 0.0 PT 13.4 H INR 1.2 H Sodium 141 Potassium 4.4 Chloride 107 Carbon Dioxide 24 Anion Gap 14 BUN 58 H Creatinine 1.93 H Estim Creat Clear Calc 28.7 Estimated GFR 34 Random Glucose 104 Calcium 11.8 H Microbiology Microbiology Results: Microbiology 09/03/24 13:00 Blood - Venous Blood Culture - Final Bacillus species 09/03/24 13:05 Blood - Venous Blood Culture - Preliminary No growth after 48 hours. 09/03/24 18:45 Urine clean catch - Clean Catch Midstream Urine Culture - Final Procedures Date of Service Date of Service: 09/06/24 Progress Note: A&P Assessment and plan (1) Dysphagia: Status: Acute Assessment and Plan: stable with respect to swallowing difficulty calcium level improved biopsy today eventual barium swallow. Time Spent With Patient Time: Total time managing care of this patient today ____ minutes. Quality Stroke Does the patient have a stroke diagnosis?: No VTE Prior VTE?: No VTE Risk Level:: Medical - moderate - high VTE Device Contraindication: Treatment Not Indicated VTE Drug Contraindication: N/A - Med Ordered
[2024-09-06] MEDS: Lidocaine HCl 1 % MPF 30 ML VIAL 10 ML SUBCUT (14:46)
--- NOTE | 2024-09-06 18:59 | PC.NURSE ---
urologist called to bedside to assess Morales site r/t potential obstruction of catheter. Urologist further advanced catheter which is now draining punch colored urine. No clots noted at this time. pt does not have three way cath in place for CBI at this time. Hospitalist notified. Per urologist, okay to irrigate catheter
[2024-09-06 20:58] LABS: Hematocrit 32.2 % (42.0-52.0); Hemoglobin 10.6 g/dl (14.0-18.0)
[2024-09-06 21:10] LABS: Vancomycin Random 15.7 mcg/mL (15-20)
[2024-09-06] MEDS: Lidocaine HCl 2 % Urojet 10 ML JEL.PF.APP TOPICAL (23:13)
[2024-09-06 23:43] LABS: OBS Int Ctl Valid YES; OBS1 NEGATIVE (NEGATIVE)
[2024-09-07 03:22] VITALS: BP 130/63; PULSE 109; RESP 18; TEMP 36.6; O2SAT 98
[2024-09-07 07:16] LABS: Hematocrit 33.1 % (42.0-52.0); Hemoglobin 10.7 g/dl (14.0-18.0); Mean Corpuscular HGB Conc 32.3 g/dl (31.0-36.0); Mean Corpuscular Hemoglobin 28.4 pg (27.0-33.0); Mean Corpuscular Volume 87.8 fL (80.0-98.0); Mean Platelet Volume 8.6 fL (9.4-12.4); Platelet Count 182 X10*3/uL (160-400); Red Blood Count 3.77 X10*6/uL (4.60-5.80); Red Cell Distribution Width 14.7 % (11.0-16.0); White Blood Count 9.5 X10*3/uL (4.8-10.8)
[2024-09-07 07:39] LABS: Anion Gap 13 (12-20); Blood Urea Nitrogen 55 mg/dL (9-16); Carbon Dioxide 25 mmol/L (22-29); Chloride 108 mmol/L (96-108); Creatinine Clr Calc Pharmacy 31.7; Estimated Glomerular Filt Rate 38; Glucose Random 104 mg/dL (60-115); Potassium 4.8 mmol/L (3.3-5.1); Sodium 141 mmol/L (135-145)
[2024-09-07 07:53] VITALS: BP 120/67; PULSE 98; RESP 18; TEMP 36.6; O2SAT 98
[2024-09-07] MEDS: Furosemide 20 MG/2 ML VIAL IVPUSH ×2 (08:37→17:13)
[2024-09-07] MEDS: Calcitonin,Salmon,Synth Nasal 3.7 ML BOTTLE 1 SPRAY NOSTRILALT (08:38)
[2024-09-07] MEDS: 0.9 % Sodium Chloride 1,000 ML 150 ML IVCONT ×3 (09:02→22:09)
[2024-09-07 11:44] VITALS: BP 133/65; PULSE 102; RESP 18; TEMP 36.5; O2SAT 99
--- NOTE | 2024-09-07 11:47 | P.PNIM_ITS ---
Subjective Subjective Date of Service: 09/07/24 Interval History: seen and examined this morning follow up for hypercalcemia, MARYSE, probable new cancer Now with hematuria weakness improving Review of Systems Review of Systems: Yes all other systems are reviewed and are negative Constitutional Constitutional: Denies chills and Denies fever(s) Cardiovascular Cardiovascular: Denies chest pain, Denies palpitations and Denies dyspnea Respiratory Respiratory: Denies cough and Denies dyspnea Endocrine Endocrine: Denies palpitations Physical Exam 2 Vital Signs: Vital Signs: Last Vital Signs Temp 97.7 F 09/07/24 11:44 Pulse 102 H 09/07/24 11:44 Resp 18 09/07/24 11:44 BP 133/65 09/07/24 11:44 Pulse Ox 99 09/07/24 11:44 O2 Del Method Room Air 09/07/24 11:44 O2 Flow Rate 0 09/06/24 14:10 BMI result Body Mass Index 21.7 Appearing in no acute distress lung sounds are clear to auscultation heart regular rate rhythm, clear S1, S2 positive bowel sounds, abdomen is soft, nontender neuro patient is alert x3, no focal deficits CBI Objective Data Active Medications Acetaminophen (Acetaminophen 325 Mg Tablet) 650 mg PO Q6H PRN PRN Reason: Pain, Mild 1-3,fever,headache Calcitonin [place] (Calcitonin,[place],Synth Nasal 3.7 Ml Bottle) 1 spray NOSTRILALT DAILY [facility] Last Admin: 09/07/24 08:38 Dose: 1 spray Documented By: HEDY Furosemide (Furosemide 20 Mg/2 Ml Vial) 20 mg IVPUSH BID@0900,1800 [facility]; Protocol Last Admin: 09/07/24 08:37 Dose: 20 mg Documented By: HEDY Sodium Chloride (Ns) 1,000 mls @ 150 mls/hr IVCONT .Q6H40M [facility] Last Admin: 09/07/24 09:02 Dose: 150 mls/hr Documented By: HEDY Magnesium Hydroxide (Milk Of Magnesia 30 Ml Oral.Susp) 30 ml PO DAILY PRN PRN Reason: Constipation Melatonin (Melatonin 3 Mg Tablet) 6 mg PO BEDTIME PRN PRN Reason: Insomnia Ondansetron HCl (Ondansetron Hcl 4 Mg/2 Ml Vial) 4 mg IVPUSH Q8H PRN PRN Reason: Nausea and Vomiting Polyethylene Glycol (Polyethylene Glycol 3350 17 Gm Powd.Pack) 17 gm PO DAILY [facility] Last Admin: 09/07/24 09:06 Dose: Not Given Documented By: HEDY Non-Admin Reason: Patient Refused Sodium Chloride (0.9 % Sodium Chloride Flush 3 Ml Syringe) 3 ml IVFLUSH QSHIFT [facility] Last Admin: 09/07/24 09:06 Dose: Not Given Documented By: HEDY Non-Admin Reason: IV Running Trazodone HCl (Trazodone Hcl 50 Mg Tablet) 50 mg PO BEDTIME [facility] Last Admin: 09/06/24 23:13 Dose: Not Given Documented By: LISSETT Non-Admin Reason: Patient Refused Labs 09/07/24 06:37 09/07/24 06:37 Labs: Laboratory Results - last 24 hr 09/06/24 09/06/24 09/06/24 12:01 20:53 23:16 MCV 87.7 MCH 28.6 MCHC 32.6 RDW 14.7 Plt Count 155 L MPV 8.2 L Absolute Nucleated RBC 0.000 Nucleated RBC % (auto) 0.0 PT 13.4 H INR 1.2 H Anion Gap Estim Creat Clear Calc Estimated GFR Random Glucose Calcium Stool Occult Blood NEGATIVE Random Vancomycin 15.7 09/07/24 06:37 MCV 87.8 MCH 28.4 MCHC 32.3 RDW 14.7 Plt Count 182 MPV 8.6 L Absolute Nucleated RBC 0.000 Nucleated RBC % (auto) 0.0 PT INR Anion Gap 13 Estim Creat Clear Calc 31.7 Estimated GFR 38 Random Glucose 104 Calcium 12.0 H Stool Occult Blood Random Vancomycin Microbiology Microbiology Results: Microbiology 09/03/24 13:00 Blood Culture - Final Blood - Venous Bacillus species Assessment and Plan (1) Renal mass, right: Status: Acute (2) Hydronephrosis: Status: Acute (3) Hypercalcemia: Status: Acute (4) MARYSE (acute kidney injury): Status: Acute Plan 79 year old male with remote history of prostate cancer, hypertension, hyperlipidemia, history of left lower extremity DVT no longer on Eliquis due to bleeding admitted with SIRS, weakness found to have hypercalcemia and imaging concerning for diffuse metastases of primary Hypercalcemia. Trending down Due to underlying cancer metastases, unknown primary normal PTH Abdominal CT showing soft tissue mass arising from the prostate, soft tissue masses involving the right kidney, mesenteric mass and right inguinal lymphadenopathy along with possible liver lesion. PSA undetectable, probable kidney cancer versus lymphoma nephrology following> Continue IV fluids and lasix and intranasal calcitonin Onc following>biopsy 09/06/24, patho pending Weakness and lethargy no obvious signs of infection. Urine culture and blood cultures negative. RPP negative recent weight loss of more than 20 lbs last few months, poor appetite Likely due to above MARYSE Creatinine stable Severe hydro seen on imaging seen by Urology recommended medina placement, CBI placed Continue IV fluids Hold benazepril follow BMP Hematuria due to medina placement for above CBI follow CBC Normocytic anemia, non blood loss iron 22 H/H stable Dysphagia Speech therapy evaluation -recommended GI consultation Seen by GI, recommended barium swallow Hypertension stable BP Amlodipine-benazepril on hold Mental health continue home medication Constipation Resume home MiraLax History of DVT No longer on Eliquis DVT prophylaxis -stop heparin for hematuria; mechanical devices ordered Full code Quality Stroke Does the patient have a stroke diagnosis?: No VTE Prior VTE?: No VTE Risk Level:: Medical - moderate - high VTE Device Contraindication: Treatment Not Indicated VTE Drug Contraindication: N/A - Med Ordered
[2024-09-07 15:53] VITALS: BP 130/66; PULSE 108; RESP 18; TEMP 36.3; O2SAT 98
[2024-09-07 18:12] LABS: VITAMIN D (1,25 OH) D3 94 pg/mL; Vit D (1,25-Dihydroxy) Total 94 pg/mL (18-72); Vitamin D (1,25 OH) D2 <8 pg/mL
[2024-09-07 19:47] VITALS: BP 131/68; PULSE 108; RESP 18; TEMP 36.5; O2SAT 99
[2024-09-07] MEDS: traZODone HCL 50 MG TABLET PO (22:09)
[2024-09-07 23:21] VITALS: BP 146/74; PULSE 109; RESP 18; TEMP 36.7; O2SAT 95
[2024-09-08] VITALS (7 sets, daily range): BP systolic 125–145; BP diastolic 59–70; PULSE 100–116; RESP 16–18; TEMP 36.6–36.9; O2SAT 96–100
[2024-09-08] MEDS: 0.9 % Sodium Chloride 1,000 ML 150 ML IVCONT ×3 (05:20→21:50)
--- NOTE | 2024-09-08 07:39 | P.PNIM_ITS ---
Subjective Subjective Date of Service: 09/08/24 Interval History: seen and examined this morning follow up for hypercalcemia, MARYSE, probable new cancer Now with hematuria, resolving weakness improving Review of Systems Review of Systems: Yes all other systems are reviewed and are negative Constitutional Constitutional: Denies chills and Denies fever(s) Cardiovascular Cardiovascular: Denies chest pain, Denies palpitations and Denies dyspnea Respiratory Respiratory: Denies cough and Denies dyspnea Endocrine Endocrine: Denies palpitations Physical Exam 2 Vital Signs: Vital Signs: Last Vital Signs Temp 97.8 F 09/08/24 07:36 Pulse 100 09/08/24 07:36 Resp 18 09/08/24 07:36 BP 145/70 H 09/08/24 07:36 Pulse Ox 96 09/08/24 07:36 O2 Del Method Room Air 09/08/24 07:36 O2 Flow Rate 0 09/06/24 14:10 BMI result Body Mass Index 21.7 Appearing in no acute distress lung sounds are clear to auscultation heart regular rate rhythm, clear S1, S2 positive bowel sounds, abdomen is soft, nontender neuro patient is alert x3, no focal deficits Objective Data Active Medications Acetaminophen (Acetaminophen 325 Mg Tablet) 650 mg PO Q6H PRN PRN Reason: Pain, Mild 1-3,fever,headache Calcitonin [place] (Calcitonin,[place],Synth Nasal 3.7 Ml Bottle) 1 spray NOSTRILALT DAILY [facility] Last Admin: 09/07/24 08:38 Dose: 1 spray Documented By: HEDY Furosemide (Furosemide 20 Mg/2 Ml Vial) 20 mg IVPUSH BID@0900,1800 [facility]; Protocol Last Admin: 09/07/24 17:13 Dose: 20 mg Documented By: HEDY Sodium Chloride (Ns) 1,000 mls @ 150 mls/hr IVCONT .Q6H40M [facility] Last Admin: 09/08/24 05:20 Dose: 150 mls/hr Documented By: LISSETT Magnesium Hydroxide (Milk Of Magnesia 30 Ml Oral.Susp) 30 ml PO DAILY PRN PRN Reason: Constipation Melatonin (Melatonin 3 Mg Tablet) 6 mg PO BEDTIME PRN PRN Reason: Insomnia Ondansetron HCl (Ondansetron Hcl 4 Mg/2 Ml Vial) 4 mg IVPUSH Q8H PRN PRN Reason: Nausea and Vomiting Polyethylene Glycol (Polyethylene Glycol 3350 17 Gm Powd.Pack) 17 gm PO DAILY [facility] Last Admin: 09/07/24 09:06 Dose: Not Given Documented By: HEDY Non-Admin Reason: Patient Refused Sodium Chloride (0.9 % Sodium Chloride Flush 3 Ml Syringe) 3 ml IVFLUSH QSHIFT [facility] Last Admin: 09/08/24 03:56 Dose: Not Given Documented By: LISSETT Non-Admin Reason: IV Running Trazodone HCl (Trazodone Hcl 50 Mg Tablet) 50 mg PO BEDTIME [facility] Last Admin: 09/07/24 22:09 Dose: 50 mg Documented By: LISSETT Labs 09/07/24 06:37 09/08/24 07:12 Labs: Laboratory Results - last 24 hr 09/03/24 09/07/24 09/08/24 14:54 06:37 07:12 Hold Purple Top SEE NOTE Anion Gap 13 Estim Creat Clear Calc 31.7 Estimated GFR 38 Random Glucose 104 Calcium 12.0 H 1,25 Dihydroxy Vit D 94 H 1,25 Dihydroxy Vit D2 <8 1,25 Dihydroxy Vit D3 94 Assessment and Plan (1) Renal mass, right: Status: Acute (2) Hydronephrosis: Status: Acute (3) Hypercalcemia: Status: Acute (4) MARYSE (acute kidney injury): Status: Acute Plan 79 year old male with remote history of prostate cancer, hypertension, hyperlipidemia, history of left lower extremity DVT no longer on Eliquis due to bleeding admitted with SIRS, weakness found to have hypercalcemia and imaging concerning for diffuse metastases of primary Hypercalcemia. Trending down Due to underlying cancer metastases, unknown primary normal PTH Abdominal CT showing soft tissue mass arising from the prostate, soft tissue masses involving the right kidney, mesenteric mass and right inguinal lymphadenopathy along with possible liver lesion. PSA undetectable, probable kidney cancer versus lymphoma nephrology following> Continue IV fluids and lasix and intranasal calcitonin Onc following>biopsy 09/06/24, patho pending Weakness and lethargy no obvious signs of infection. Urine culture and blood cultures negative. RPP negative recent weight loss of more than 20 lbs last few months, poor appetite Likely due to above MARYSE Creatinine stable Severe hydro seen on imaging seen by Urology recommended medina placement, CBI placed Continue IV fluids Hold benazepril follow BMP Hematuria due to medina placement for above CBI follow CBC Normocytic anemia, non blood loss iron 22 H/H stable Dysphagia Speech therapy evaluation -recommended GI consultation Seen by GI, recommended barium swallow Hypertension stable BP Amlodipine-benazepril on hold Mental health continue home medication Constipation Resume home MiraLax History of DVT No longer on Eliquis DVT prophylaxis -stop heparin for hematuria; mechanical devices ordered Full code Quality Stroke Does the patient have a stroke diagnosis?: No VTE Prior VTE?: No VTE Risk Level:: Medical - moderate - high VTE Device Contraindication: Treatment Not Indicated VTE Drug Contraindication: N/A - Med Ordered
[2024-09-08 07:57] LABS: Anion Gap 13 (12-20); Blood Urea Nitrogen 46 mg/dL (9-16); Calcium 11.1 mg/dL (8.4-10.2); Carbon Dioxide 22 mmol/L (22-29); Chloride 109 mmol/L (96-108); Creatinine Clr Calc Pharmacy 34.9; Estimated Glomerular Filt Rate 42; Glucose Random 101 mg/dL (60-115); Potassium 3.6 mmol/L (3.3-5.1); Sodium 140 mmol/L (135-145)
[2024-09-08] MEDS: Furosemide 20 MG/2 ML VIAL IVPUSH ×2 (08:48→18:45)
[2024-09-08] MEDS: polyethylene glycoL 3350 17 GM POWD.PACK PO (08:48)
[2024-09-08] MEDS: 0.9 % Sodium Chloride Flush 3 ML SYRINGE IVFLUSH ×2 (09:19→21:36)
[2024-09-08] MEDS: Calcitonin,Salmon,Synth Nasal 3.7 ML BOTTLE 1 SPRAY NOSTRILALT (10:17)
--- NOTE | 2024-09-08 10:34 | PC.NURSE ---
at 9 am per provider JR instructed to clamp the CBI and watch if bleeding is an issue. Clamped per provider and 1800 cc of light pink colored urine noted in medina bag.
--- NOTE | 2024-09-08 13:53 | P.PNUR_ITS ---
Subjective Subjective Date of Service: 09/08/24 Interval history: Morales catheter repositioned on Monday Hematuria has decreased Catheter clamped today Creatinine 1.6, PSA <0.1 Urine clearing Physical Exam 2 Vital Signs: Vital Signs: Last Vital Signs Temp 97.8 F 09/08/24 12:00 Pulse 112 H 09/08/24 12:00 Resp 18 09/08/24 12:00 BP 127/67 09/08/24 12:00 Pulse Ox 100 09/08/24 12:00 O2 Del Method Room Air 09/08/24 12:00 O2 Flow Rate 0 09/06/24 14:10 BMI result Body Mass Index 21.7 Urology Results Labs 09/07/24 06:37 09/08/24 07:12 Labs: Laboratory Results - last 24 hr 09/03/24 09/08/24 14:54 07:12 Hold Purple Top SEE NOTE Sodium 140 Potassium 3.6 D Chloride 109 H Carbon Dioxide 22 Anion Gap 13 BUN 46 H Creatinine 1.59 H Estim Creat Clear Calc 34.9 Estimated GFR 42 Random Glucose 101 Calcium 11.1 H D 1,25 Dihydroxy Vit D 94 H 1,25 Dihydroxy Vit D2 <8 1,25 Dihydroxy Vit D3 94 Progress Note: A&P Time Spent With Patient Time: Total time managing care of this patient today ____ minutes. Progress Note: Quality Stroke Does the patient have a stroke diagnosis?: No
[2024-09-08] MEDS: traZODone HCL 50 MG TABLET PO (21:36)
[2024-09-09] VITALS (7 sets, daily range): BP systolic 130–149; BP diastolic 60–71; PULSE 92–116; RESP 16–18; TEMP 36.2–37; O2SAT 96–99
[2024-09-09] MEDS: 0.9 % Sodium Chloride 1,000 ML 150 ML IVCONT ×4 (04:53→23:29)
[2024-09-09 08:04] LABS: Anion Gap 13 (12-20); Blood Urea Nitrogen 46 mg/dL (9-16); Calcium 11.5 mg/dL (8.4-10.2); Carbon Dioxide 20 mmol/L (22-29); Chloride 109 mmol/L (96-108); Creatinine Clr Calc Pharmacy 30.8; Estimated Glomerular Filt Rate 36; Glucose Random 152 mg/dL (60-115); Potassium 3.5 mmol/L (3.3-5.1); Sodium 138 mmol/L (135-145)
[2024-09-09] MEDS: Furosemide 20 MG/2 ML VIAL IVPUSH ×2 (09:01→17:38)
[2024-09-09] MEDS: 0.9 % Sodium Chloride Flush 3 ML SYRINGE IVFLUSH ×2 (09:01→20:20)
[2024-09-09] MEDS: Metoprolol Tartrate 12.5 MG HALFTAB PO ×2 (09:02→20:20)
[2024-09-09] MEDS: Calcitonin,Salmon,Synth Nasal 3.7 ML BOTTLE 1 SPRAY NOSTRILALT (09:09)
--- NOTE | 2024-09-09 09:32 | P.PNIM_ITS ---
Subjective Subjective Date of Service: 09/09/24 Interval History: Follow up for hypercalcemia, MARYSE, probable new cancer Seen and examined this morning In no acute distress and denies pain Hematuria resolving-CBI stopped Weakness improving Review of Systems Review of Systems: Yes all other systems are reviewed and are negative Constitutional Constitutional: Denies chills, Denies fever(s) and Denies headache(s) ENT Ears, Nose, Mouth, and Throat: Denies headache(s) Cardiovascular Cardiovascular: Denies chest pain, Reports rapid heart rate, Reports pedal edema, Reports leg edema, Denies palpitations and Denies dyspnea Respiratory Respiratory: Denies cough and Denies dyspnea Gastrointestinal Gastrointestinal: Denies abdominal pain Genitourinary Genitourinary: Reports hematuria Neurologic Neurologic: Denies headache(s) Endocrine Endocrine: Denies palpitations Physical Exam 2 Vital Signs: Vital Signs: Last Vital Signs Temp 98.6 F 09/09/24 07:06 Pulse 113 H 09/09/24 07:06 Resp 16 09/09/24 07:06 BP 130/60 09/09/24 07:06 Pulse Ox 96 09/09/24 07:06 O2 Del Method Room Air 09/09/24 07:06 O2 Flow Rate 0 09/06/24 14:10 BMI result Body Mass Index 21.7 Const: General: cooperative, comfortable, no acute distress, alert and awake Orientation/consciousness: patient oriented x3 Resp: Effort & Inspection: normal respiratory effort and able to speak in complete sentences Auscultation: clear to auscultation bilaterally Cardio: Jugular venous distension: no JVD Palpation: normal PMI Rate: t achycardic Rhythm: regular rhythm Heart sounds: S1 normal heart sound present and S2 normal heart sound present Peripheral pulses: dorsalis pedis present GI: Inspection: Yes normal to inspection Palpation (GI): Soft to palpation Auscultation: normal bowel sounds : Other: Urine clear yellow, with light brown sediments, no em blood or clots noted. CBI has been of for about 24 hours according to nursing staff Neuro: General: patient oriented x3 Extrem: Right lower extremity: edema, lower leg and foot Left lower extremity: edema, lower leg and foot Objective Data Active Medications Acetaminophen (Acetaminophen 325 Mg Tablet) 650 mg PO Q6H PRN PRN Reason: Pain, Mild 1-3,fever,headache Calcitonin [place] (Calcitonin,[place],Synth Nasal 3.7 Ml Bottle) 1 spray NOSTRILALT DAILY [facility] Last Admin: 09/09/24 09:09 Dose: 1 spray Documented By: SERGIO Furosemide (Furosemide 20 Mg/2 Ml Vial) 20 mg IVPUSH BID@0900,1800 [facility]; Protocol Last Admin: 09/09/24 09:01 Dose: 20 mg Documented By: SERGIO Sodium Chloride (Ns) 1,000 mls @ 150 mls/hr IVCONT .Q6H40M [facility] Last Admin: 09/09/24 04:53 Dose: 150 mls/hr Documented By: KRISS Magnesium Hydroxide (Milk Of Magnesia 30 Ml Oral.Susp) 30 ml PO DAILY PRN PRN Reason: Constipation Melatonin (Melatonin 3 Mg Tablet) 6 mg PO BEDTIME PRN PRN Reason: Insomnia Metoprolol Tartrate (Metoprolol Tartrate 12.5 Mg Halftab) 12.5 mg PO BID [facility]; Protocol Last Admin: 09/09/24 09:02 Dose: 12.5 mg Documented By: SERGIO Ondansetron HCl (Ondansetron Hcl 4 Mg/2 Ml Vial) 4 mg IVPUSH Q8H PRN PRN Reason: Nausea and Vomiting Polyethylene Glycol (Polyethylene Glycol 3350 17 Gm Powd.Pack) 17 gm PO DAILY [facility] Last Admin: 09/09/24 09:06 Dose: Not Given Documented By: SERGIO Non-Admin Reason: Patient Refused Sodium Chloride (0.9 % Sodium Chloride Flush 3 Ml Syringe) 3 ml IVFLUSH QSHIFT [facility] Last Admin: 09/09/24 09:01 Dose: 3 ml Documented By: SERGIO Trazodone HCl (Trazodone Hcl 50 Mg Tablet) 50 mg PO BEDTIME [facility] Last Admin: 09/08/24 21:36 Dose: 50 mg Documented By: KRISS Labs 09/07/24 06:37 09/09/24 07:15 Labs: Laboratory Results - last 24 hr 09/09/24 07:15 Anion Gap 13 Estim Creat Clear Calc 30.8 Estimated GFR 36 Random Glucose 152 H Calcium 11.5 H Microbiology Microbiology Results: Microbiology 09/03/24 13:05 Blood Culture - Final Blood - Venous No growth after 5 days. Assessment and Plan (1) Benign essential hypertension: Status: Acute Plan 79 year old male with remote history of prostate cancer, hypertension, hyperlipidemia, history of left lower extremity DVT no longer on Eliquis due to bleeding admitted with SIRS, weakness found to have hypercalcemia and imaging concerning for diffuse metastases of primary Hypercalcemia. Ca- 16.1>11.5 Due to underlying cancer metastases, unknown primary Normal PTH Abdominal CT showing soft tissue mass arising from the prostate, soft tissue masses involving the right kidney, mesenteric mass and right inguinal lymphadenopathy along with possible liver lesion. PSA undetectable, probable kidney cancer versus lymphoma Nephrology following> Continue IV fluids and lasix and intranasal calcitonin Onc following>biopsy 09/06/24, patho pending Tachycardia HR slowly upending-pt asymptomatic Sinus tachycardia on telemetry Check EKG ?PE-underlying infection-fluid overload Check CBC, BMP, VQ scan and BNP Metoprolol 12.5 BID added Weakness and lethargy No obvious signs of infection. Urine culture and blood cultures negative. RPP negative Recent weight loss of more than 20 lbs last few months, poor appetite Likely due to above MARYSE Creatinine stable Severe hydro seen on imaging Seen by Urology recommended medina placement, CBI placed, clamped Continue IV fluids Hold benazepril Follow BMP Hematuria-Resolving Due to medina placement for above CBI- off for about 24 hours Follow CBC Normocytic anemia, non blood loss iron 22 H/H stable Dysphagia Speech therapy evaluation -recommended GI consultation Seen by GI, recommended barium swallow Hypertension stable BP Amlodipine-benazepril on hold Mental health continue home medication Constipation Resume home MiraLax History of DVT No longer on Eliquis DVT prophylaxis -stop heparin for hematuria; mechanical devices ordered Full code Quality Stroke Does the patient have a stroke diagnosis?: No VTE Prior VTE?: No VTE Risk Level:: Medical - moderate - high VTE Device Contraindication: Treatment Not Indicated VTE Drug Contraindication: N/A - Med Ordered
[2024-09-09] MEDS: Heparin Sodium,Porcine 5,000 UNIT/ML VIAL 5000 UNIT SUBCUT ×2 (11:13→20:20)
--- NOTE | 2024-09-09 14:02 | MHC.CLN ---
F/U DIET=REGULAR. SUPPLEMENT ENSURE CLEAR TID (720 KCALS/24 G PROTEIN) AND MAGIC CUP TID (870 KCALS/27 G PROTEIN). PT WITH MODERATE MALNUTRITION AND 17% SIGNIFICANT WT LOSS X 6 MONTHS. CONTINUE TO FOLLOW FOR PO INTAKE.
--- NOTE | 2024-09-09 14:32 | P.PNNP_ITS ---
Subjective Subjective Date of Service: 09/09/24 Interval history: Follow up for hypercalcemia, MARYSE, probable new cancer Seen and examined this morning In no acute distress and denies pain Hematuria resolving-CBI stopped Weakness improving Physical Exam 2 Vital Signs: Vital Signs: Last Vital Signs Temp 97.7 F 09/09/24 11:14 Pulse 92 09/09/24 12:51 Resp 18 09/09/24 11:14 BP 145/70 H 09/09/24 12:51 Pulse Ox 98 09/09/24 12:51 O2 Del Method Room Air 09/09/24 11:14 O2 Flow Rate 0 09/06/24 14:10 BMI result Body Mass Index 21.7 General: Elderly male, Not in acute distress, ill appearing and tired appearing Nutritional Appearance: well nourished and overweight Eyes: appearance normal, both eyes and all related structures; Alignment and Position: alignment normal and position normal Neck: No lymphadenopathy, no thyromegaly Resp: bilateral air entry equal, occasional added sounds present Cardio: Regular rate, regular rhythm; Heart sounds: S1 normal heart sound present and S2 normal heart sound present GI: soft, nontender, no guarding, no hepatosplenomegaly : bladder normal to inspection, bladder normal to palpation, no renal angle tenderness Skin: no rashes or lesions noted and elasticity normal Neuro: oriented to person, oriented to place, oriented to time and moves all extremities Objective Data Labs 09/07/24 06:37 09/09/24 07:15 Labs: Laboratory Results - last 24 hr 09/09/24 07:15 Sodium 138 Potassium 3.5 Chloride 109 H Carbon Dioxide 20 L Anion Gap 13 BUN 46 H Creatinine 1.80 H Estim Creat Clear Calc 30.8 Estimated GFR 36 Random Glucose 152 H Calcium 11.5 H Microbiology Microbiology Results: Microbiology 09/03/24 13:05 Blood - Venous Blood Culture - Final No growth after 5 days. 09/03/24 13:00 Blood - Venous Blood Culture - Final Bacillus species 09/03/24 18:45 Urine clean catch - Clean Catch Midstream Urine Culture - Final Procedures Date of Service Date of Service: 09/09/24 Assessment & Plan Assessment and plan (1) Hypercalcemia: Status: Acute (2) MARYSE (acute kidney injury): Status: Acute Plan Hypercalcemia: Possibly secondary to metastatic malignancy, pending biopsy report Continue normal saline at 150 cc/hour with Lasix b.i.d. We will increase the calcitonin to TID dosage If no significant response by tomorrow we will consider adding denosumab or another dose of bisphosphonates Acute kidney injury: Possibly a component of tubular injury secondary to significant chronic obstruction Creatinine had improved down to 1.59 yesterday but up to 1.8 again this morning Continue Morales catheterization, continuous bladder irrigation has been stopped by Urology yesterday. Hematuria is better, has good urine output. Recommend bladder scanning to rule out any residual urine as there is a small increase in creatinine Time Spent With Patient Time: Total time managing care of this patient today __40__ minutes. Progress Note: Quality Stroke Does the patient have a stroke diagnosis?: No
[2024-09-09] MEDS: traZODone HCL 50 MG TABLET PO (20:20)
[2024-09-10 03:09] VITALS: BP 133/71; PULSE 109; RESP 18; TEMP 36.9; O2SAT 95
[2024-09-10] MEDS: 0.9 % Sodium Chloride 1,000 ML 150 ML IVCONT (05:04)
[2024-09-10 06:20] LABS: Anion Gap 11 (12-20); Blood Urea Nitrogen 49 mg/dL (9-16); Calcium 11.4 mg/dL (8.4-10.2); Carbon Dioxide 19 mmol/L (22-29); Chloride 112 mmol/L (96-108); Creatinine Clr Calc Pharmacy 32.6; Estimated Glomerular Filt Rate 39; Glucose Random 100 mg/dL (60-115); Potassium 3.8 mmol/L (3.3-5.1); Sodium 138 mmol/L (135-145)
[2024-09-10 08:00] VITALS: BP 127/69; PULSE 110; RESP 16; TEMP 37; O2SAT 97
[2024-09-10] MEDS: Furosemide 20 MG/2 ML VIAL IVPUSH (08:20)
[2024-09-10] MEDS: dexAMETHasone sod phosphate 10 MG/ML VIAL 4 MG IVPUSH (08:22)
[2024-09-10] MEDS: Metoprolol Tartrate 12.5 MG HALFTAB PO (08:26)
[2024-09-10] MEDS: Heparin Sodium,Porcine 5,000 UNIT/ML VIAL 5000 UNIT SUBCUT (08:27)
[2024-09-10] MEDS: polyethylene glycoL 3350 17 GM POWD.PACK PO (08:31)
--- NOTE | 2024-09-10 11:48 | P.PNIM_ITS ---
Subjective Subjective Date of Service: 09/10/24 Interval History: Follow up for hypercalcemia, MARYSE, probable new cancer Seen and examined this morning In no acute distress and denies pain Hematuria resolved, CBI stopped Weakness improving Review of Systems Review of Systems: Yes all other systems are reviewed and are negative Constitutional Constitutional: Denies chills, Denies fever(s) and Denies headache(s) ENT Ears, Nose, Mouth, and Throat: Denies headache(s) Cardiovascular Cardiovascular: Denies chest pain, Reports rapid heart rate, Reports pedal edema, Reports leg edema, Denies palpitations and Denies dyspnea Respiratory Respiratory: Denies cough and Denies dyspnea Gastrointestinal Gastrointestinal: Denies abdominal pain Genitourinary Genitourinary: Reports hematuria Neurologic Neurologic: Denies headache(s) Endocrine Endocrine: Denies palpitations Physical Exam 2 Vital Signs: Vital Signs: Last Vital Signs Temp 98.6 F 09/10/24 08:00 Pulse 110 H 09/10/24 08:00 Resp 16 09/10/24 08:00 BP 127/69 09/10/24 08:00 Pulse Ox 97 09/10/24 08:00 O2 Del Method Room Air 09/10/24 08:00 O2 Flow Rate 0 09/06/24 14:10 BMI result Body Mass Index 21.7 Appearing in no acute distress lung sounds are clear to auscultation heart regular rate rhythm, clear S1, S2 positive bowel sounds, abdomen is soft, nontender neuro patient is alert x3, no focal deficits Objective Data Active Medications Acetaminophen (Acetaminophen 325 Mg Tablet) 650 mg PO Q6H PRN PRN Reason: Pain, Mild 1-3,fever,headache Dexamethasone Sodium Phosphate (Dexamethasone Sod Phosphate 10 Mg/Ml Vial) 4 mg IVPUSH DAILY [facility] Last Admin: 09/10/24 08:22 Dose: 4 mg Documented By: VALERIE Furosemide (Furosemide 20 Mg/2 Ml Vial) 20 mg IVPUSH BID@0900,1800 [facility]; Protocol Last Admin: 09/10/24 08:20 Dose: 20 mg Documented By: VALERIE Heparin Sodium (Porcine) (Heparin Sodium,Porcine 5,000 Unit/Ml Vial) 5,000 unit SUBCUT Q12H [facility] Last Admin: 09/10/24 08:27 Dose: 5,000 unit Documented By: VALERIE Sodium Chloride (Ns) 1,000 mls @ 150 mls/hr IVCONT .Q6H40M [facility] Last Admin: 09/10/24 05:04 Dose: 150 mls/hr Documented By: VIC Magnesium Hydroxide (Milk Of Magnesia 30 Ml Oral.Susp) 30 ml PO DAILY PRN PRN Reason: Constipation Melatonin (Melatonin 3 Mg Tablet) 6 mg PO BEDTIME PRN PRN Reason: Insomnia Metoprolol Tartrate (Metoprolol Tartrate 12.5 Mg Halftab) 12.5 mg PO BID [facility]; Protocol Last Admin: 09/10/24 08:26 Dose: 12.5 mg Documented By: VALERIE Ondansetron HCl (Ondansetron Hcl 4 Mg/2 Ml Vial) 4 mg IVPUSH Q8H PRN PRN Reason: Nausea and Vomiting Polyethylene Glycol (Polyethylene Glycol 3350 17 Gm Powd.Pack) 17 gm PO DAILY [facility] Last Admin: 09/10/24 08:31 Dose: 17 gm Documented By: VALERIE Sodium Chloride (0.9 % Sodium Chloride Flush 3 Ml Syringe) 3 ml IVFLUSH QSHIFT [facility] Last Admin: 09/10/24 08:27 Dose: Not Given Documented By: VALERIE Non-Admin Reason: IV Running Trazodone HCl (Trazodone Hcl 50 Mg Tablet) 50 mg PO BEDTIME [facility] Last Admin: 09/09/24 20:20 Dose: 50 mg Documented By: VIC Labs 09/07/24 06:37 09/10/24 05:54 Labs: Laboratory Results - last 24 hr 09/10/24 05:54 Anion Gap 11 L Estim Creat Clear Calc 32.6 Estimated GFR 39 Random Glucose 100 Calcium 11.4 H Assessment and Plan (1) Benign essential hypertension: Status: Acute Plan 79 year old male with remote history of prostate cancer, hypertension, hyperlipidemia, history of left lower extremity DVT no longer on Eliquis due to bleeding admitted with SIRS, weakness found to have hypercalcemia and imaging concerning for diffuse metastases of primary Hypercalcemia. Ca 16.1>11.4 Due to underlying cancer metastases, unknown primary Normal PTH Abdominal CT showing soft tissue mass arising from the prostate, soft tissue masses involving the right kidney, mesenteric mass and right inguinal lymphadenopathy along with possible liver lesion. PSA undetectable, probable kidney cancer versus lymphoma Onc following>biopsy 5/23/25, patho pending Nephrology following> Continue IV fluids and lasix for now, intranasal calcitonin stopped, s/p denosumab x1, plan is tp continue dex 4 mg for 7 days then wean down a mg a week until complete, biphosphonate on dc Tachycardia pt asymptomatic hx of DVT in the past Sinus tachycardia on telemetry ?PE-underlying infection-fluid overload, no hypoxia Metoprolol 12.5 BID added check VQ scan Weakness and lethargy No obvious signs of infection. Urine culture and blood cultures negative. RPP negative Recent weight loss of more than 20 lbs last few months, poor appetite Likely due to above MARYSE Creatinine trending down Severe hydro seen on imaging Seen by Urology recommended medina placement, s/p CBI placed, Keep FC in place and fu with urology op Continue IV fluids Hold benazepril Follow BMP Hematuria-Resolving Due to medina placement for above CBI- off for about 24 hours Follow CBC Normocytic anemia, non blood loss iron 22 H/H stable Dysphagia Speech therapy evaluation -recommended GI consultation Seen by GI, recommended barium swallow, can be o/p Hypertension stable BP Amlodipine-benazepril on hold Mental health continue home medication Constipation Resume home MiraLax History of DVT No longer on Eliquis DVT prophylaxis -stop heparin for hematuria; mechanical devices ordered Full code Quality Stroke Does the patient have a stroke diagnosis?: No VTE Prior VTE?: No VTE Risk Level:: Medical - moderate - high VTE Device Contraindication: Treatment Not Indicated VTE Drug Contraindication: N/A - Med Ordered
--- NOTE | 2024-09-10 12:15 | MHC.CM.PN ---
Addendum entered by Alejandrina Lima RN 09/10/24 13:43: [facility] has obtained auth. S transport scheduled for 4pm. [employer], RN, patient and family aware. IMM delivered. Original Note: PT rec STR. Patient and family are agreeable. They accepted a bed at [facility] pending auth.
--- NOTE | 2024-09-10 14:57 | PM.DS ---
DS: Providers Provider Date of Service: 09/10/24 Date of admission: 09/03/24 14:47 Date of discharge: 09/10/24 Primary care physician: Cade Enriquez MD Consults: 09/04/24 08:25 Consult to Nephrology Routine Consulting Provider: [facility] Reason for consultation: maryse, hypercalcemia 09/04/24 12:57 Consult to Gastroenterology Routine Consulting Provider: Sumeet Swift Reason for consultation: dysphagia 09/04/24 15:24 Consult to Hematology / Oncology Routine Consulting Provider: [facility] Oncology/Hematology Reason for consultation: lung mets, please call daughter Misty prior to seeing patient 09/05/24 10:47 Consult to Urology Routine Consulting Provider: [facility] Reason for consultation: kidney mass, hydronephrosis, maryse Has provider been notified: No DS: Diagnosis Discharge Diagnosis (1) Benign essential hypertension: Status: Acute DS: Summary Hospital Course Hospital Course: 79-year-old male with history of prostate cancer s/p radiation and prostatectomy, HTN, HLD and 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 Recently had indwelling urinary catheter for retention/clots, but has since been removed. Daughter states that his urine was recently tested for infection and was negative but that his urine is also being sent to [place] to test for bacteria they are unable to test for here. Patient reports dark stools but states he takes iron supplements so attributed it to that. Denies chest pain, palpitations. Some shortness of breath worse with exertion. Denies abdominal pain, vomiting, diarrhea. Denies fevers. Reports 30# weight loss over 5 mos. Daughter states patient had great difficulty getting from the house into the car, then from the car into the hospital today. In the ED patient given IV fluids, Pamidronate, hardware technician negative, UA borderline. Plan is to admit for further management of MARYSE and hypercalcemia Hypercalcemia. Ca 16.1>11.4. Due to underlying cancer metastases, unknown primary, biopsy pending. Normal PTH. Abdominal CT showing soft tissue mass arising from the prostate, soft tissue masses involving the right kidney, mesenteric mass and right inguinal lymphadenopathy along with possible liver lesion. PSA undetectable, probable kidney cancer versus lymphoma. Oncology>biopsy 09/06/24, patho pending. Nephrology followed.Treated with IV fluids and lasix, intranasal calcitonin stopped, s/p denosumab x1, plan is to continue dex 4 mg for 7 days then wean down a mg a week until complete. Follow up with oncology for biopsy, nephrology for hypercalcemia Tachycardia. pt asymptomatic. hx of DVT in the past. Sinus tachycardia on telemetry, no underlying infection, mild fluid overload, no hypoxia. VQ neg for PE. continue Metoprolol 12.5 BID Weakness and lethargy. No obvious signs of infection. Urine culture and blood cultures negative. RPP negative. Recent weight loss of more than 20 lbs last few months, poor appetite Likely due to above MARYSE . Creatinine trending down, now 1.70. Treated with IV fluids. Severe hydro seen on imaging . Seen by Urology recommended medina placement, s/p CBI placed, Keep FC in place and fu with urology op Hematuria. Resolved. Due to medina placement for above. S/p CBI. follow up with urology in 1-2 weeks Normocytic anemia, non blood loss iron 22 H/H stable Dysphagia Speech therapy evaluation> Seen by GI, recommended barium swallow, can be o/p Hypertension stable BP Amlodipine Mental health continue home medication Constipation MiraLax History of DVT No longer on Eliquis Time Attestation Discharge Coordination Time (in mins): 45 Quality: Safe Use of Opioids Does Pt have an Active Cancer Diagnosis on the Problem List?: No Quality: Stroke Does the patient have a stroke diagnosis?: No Physical Exam Vital Signs: Vital Signs: Last Vital Signs Temp 98.6 F 09/10/24 08:00 Pulse 110 H 09/10/24 08:00 Resp 16 09/10/24 08:00 BP 127/69 09/10/24 08:00 Pulse Ox 97 09/10/24 08:00 O2 Del Method Room Air 09/10/24 08:00 O2 Flow Rate 0 09/06/24 14:10 BMI result Body Mass Index 21.7 Appearing in no acute distress head is normocephalic atraumatic eyes pupils are PERRLA sclera is anicteric mouth throat mucous membranes are intact and moist neck is supple no lymphadenopathy, no JVD noted lung sounds are clear to auscultation heart regular rate rhythm, clear S1, S2 positive bowel sounds, abdomen is soft, nontender neuro patient is alert x3, no focal deficits DS: Data Data Completed and Pending Completed studies during hospitalization [Text1]: Procedures Dilation of Bladder Neck with Intraluminal Device, Via Natural or Artificial Opening Endoscopic (12/18/23) Drainage of Right Pleural Cavity, Percutaneous Approach (12/18/23) Fluoroscopy of Right Kidney, Ureter and Bladder (12/18/23) Insertion of Intraluminal Device into Inferior Vena Cava, Percutaneous Approach (12/08/21) Pending studies at discharge: Pending at discharge 09/06/24 14:24 Surgical Path [Surgical] [PTH] Routine Labs on day of discharge: Laboratory Results - last 24 hr 09/10/24 05:54 Sodium 138 Potassium 3.8 Chloride 112 H Carbon Dioxide 19 L Anion Gap 11 L BUN 49 H Creatinine 1.70 H Estim Creat Clear Calc 32.6 Estimated GFR 39 Random Glucose 100 Calcium 11.4 H Discharge Plan Discharge Anticipated Discharge Date/Time: 09/10/24 14:37 Patient Disposition: Xfer [facility] Discharge Diagnosis: Hypercalcemia Underlying cancer metastasis, unknown primary, biopsies pending Sinus tachycardia Weakness and lethargy MARYSE Hematuria Dysphagia Referrals: [facility] [place] [Outside] - 1 Day (short term rehab) Talon Arias MD [Physician] - 1 Week (follow up for lab work to check calcium ) Cade Enriquez MD [Primary Care Provider] - 1 Week Ruperto Trevino MD [Physician] - 1 Week (Follow up for Medina catheter) Savannah Basilio MD [Physician] - 1 Week (Follow up for biopsy results) Discharge Medications: New amlodipine 5 mg tablet 5 mg PO DAILY Qty: 30 0RF dexamethasone 1 mg tablet See Taper PO DAILY Qty: 70 0RF Taper: Prednisone 4 mg daily for 7 Days and 0 Hour 3 mg daily for 7 Days and 0 Hour 2 mg daily for 7 Days and 0 Hour 1 mg daily for 7 Days and 0 Hour Rx Instructions: Take 4 mg for 7 days, 3 mg for 7 days, 2 mg for 7 days, 1 mg for 7 days metoprolol tartrate 25 mg tablet 12.5 mg PO BID Qty: 60 0RF Continued polyethylene glycol 3350 [Miralax] 17 gram/dose powder 17 g PO DAILY Qty: 510 3RF trazodone 50 mg tablet 50 mg PO BEDTIME Qty: 90 1RF Discontinued amlodipine-benazepril 5-40 mg capsule 1 cap PO DAILY 90 Days Qty: 90 3RF Discharge Orders: Discharge Order (Routine); Ordered 09/10/24 Ordered By: Kimberlee Pena Diet: Advance to usual diet Activity on Discharge: As tolerated Stand Alone Forms: Patient Portal Discharge page Print Language: Yakut Care Plan Goals: Follow-up with oncology for biopsy results Follow up with Urology for urinary retention, Medina catheter Health Concerns: Hypercalcemia Underlying cancer metastasis, unknown primary, biopsies pending Sinus tachycardia Weakness and lethargy MARYSE Hematuria Dysphagia Plan of Treatment: Follow up with primary care provider as needed Take all medications as prescribed Assessment: See discharge summary
[2024-09-10 15:20] VITALS: BP 146/70; PULSE 104; RESP 18; TEMP 36.5; O2SAT 99
--- NOTE | 2024-09-10 15:40 | P.PNNP_ITS ---
Subjective Subjective Date of Service: 09/10/24 Principal diagnosis: No new events overnight, feeling better Interval history: Follow up for hypercalcemia, MARYSE, probable new cancer Seen and examined this morning In no acute distress and denies pain Hematuria resolved, CBI stopped Weakness improving Physical Exam 2 Vital Signs: Vital Signs: Last Vital Signs Temp 97.7 F 09/10/24 15:20 Pulse 104 H 09/10/24 15:20 Resp 18 09/10/24 15:20 BP 146/70 H 09/10/24 15:20 Pulse Ox 99 09/10/24 15:20 O2 Del Method Room Air 09/10/24 15:20 O2 Flow Rate 0 09/06/24 14:10 BMI result Body Mass Index 21.7 General: Elderly male, chronically ill appearing and tired appearing Nutritional Appearance: well nourished and overweight Eyes: appearance normal, both eyes and all related structures; Alignment and Position: alignment normal and position normal Neck: No lymphadenopathy, no thyromegaly Resp: bilateral air entry equal, occasional added sounds present Cardio: Regular rate, regular rhythm; Heart sounds: S1 normal heart sound present and S2 normal heart sound present GI: soft, nontender, no guarding, no hepatosplenomegaly : bladder normal to inspection, bladder normal to palpation, no renal angle tenderness Skin: no rashes or lesions noted and elasticity normal Neuro: oriented to person, oriented to place, oriented to time and moves all extremities Objective Data Labs 09/07/24 06:37 09/10/24 05:54 Labs: Laboratory Results - last 24 hr 09/10/24 05:54 Sodium 138 Potassium 3.8 Chloride 112 H Carbon Dioxide 19 L Anion Gap 11 L BUN 49 H Creatinine 1.70 H Estim Creat Clear Calc 32.6 Estimated GFR 39 Random Glucose 100 Calcium 11.4 H Microbiology Microbiology Results: Microbiology 09/03/24 13:05 Blood - Venous Blood Culture - Final No growth after 5 days. 09/03/24 13:00 Blood - Venous Blood Culture - Final Bacillus species 09/03/24 18:45 Urine clean catch - Clean Catch Midstream Urine Culture - Final Procedures Date of Service Date of Service: 09/10/24 Assessment & Plan Assessment and plan (1) MARYSE (acute kidney injury): Status: Acute (2) Renal mass, right: Status: Acute (3) Hyperkalemia: Status: Acute Plan Hypercalcemia: Patient presented with severe hypercalcemia with calcium 16.1. Patient's vitamin-D 2 levels was less than 8, , vitamin D3 levels were 94 suggestive of increase 1 alpha hydroxylase activity possibly secondary to underlying malignancy, likely lymphomas. PTH levels are low secondary to hypercalcemia. CT scan of chest abdomen and pelvis did not show any bony metastasis. Patient had biopsy of the retroperitoneal mass which is still pending. Although the actual treatment is to treat the cancer per se, in the meantime we started the patient on dexamethasone 4 mg daily to decrease the 1 alpha hydroxylase activity, we will taper dexamethasone by 1 mg every week. Patient received a dose of denosumab on 09/09/2024, we will closely monitor the calcium levels, if that is no hypocalcemia can repeat the dose on day 8 and 15 which is September 16 and 09/23/2024. Patient needs a follow-up in Oncology Clinic and renal clinic in a week to manage his hypercalcemia and dose denosumab as per calcium levels. Acute kidney injury: Secondary to obstructive uropathy with a possible a component of tubular injury secondary to significant chronic obstruction from prostate mass Creatinine down to 1.7 from a peak of 2.03. Continue Morales catheterization with outpatient urology follow-up Time Spent With Patient Time: Total time managing care of this patient today 35_ minutes. Progress Note: Quality Stroke Does the patient have a stroke diagnosis?: No
== END 2024-09-10 18:17 | disposition skilled nursing facility (03) | DRG 687 ==
LOC: HO.ED 14:54 → HO.EDOVER 15:20 → HO.IMC 09-04 13:04 → HO.S3 09-09 15:33
PROVIDERS: Internal Medicine; Nurse Practitioner Family; Physician Assistant Medical; Registered Nurse Emergency; Student in an Organized Health Care Education/Training Program; Admitting Provider Nurse Practitioner Acute Care; Emergency Provider Emergency Medicine; PCP Internal Medicine; Visit Provider Nurse Practitioner Acute Care
DX: C64.1 Malignant neoplasm of right kidney, except renal pelvis (principal); C77.8 Secondary and unspecified malignant neoplasm of lymph nodes of multiple regions; N17.9 Acute kidney failure, unspecified; C78.02 Secondary malignant neoplasm of left lung; C78.01 Secondary malignant neoplasm of right lung; C78.7 Secondary malignant neoplasm of liver and intrahepatic bile duct; N13.6 Pyonephrosis; E86.0 Dehydration; E86.1 Hypovolemia; R00.0 Tachycardia, unspecified; I95.9 Hypotension, unspecified; D63.0 Anemia in neoplastic disease; R13.10 Dysphagia, unspecified; E83.52 Hypercalcemia; I10 Essential (primary) hypertension; K59.00 Constipation, unspecified; R31.9 Hematuria, unspecified; Z20.822 Contact with and (suspected) exposure to COVID-19; Z90.79 Acquired absence of other genital organ(s); Z86.718 Personal history of other venous thrombosis and embolism; Z87.440 Personal history of urinary (tract) infections; Z85.46 Personal history of malignant neoplasm of prostate; Z79.01 Long term (current) use of anticoagulants; Z79.899 Other long term (current) drug therapy
CPT/HCPCS: 0241U; 36415; 49180; 71045; 71250; 74176; 77012; 78580; 80048; 80053; 80202; 81001; 82272; 82378; 82565; 82652; 83540; 83605; 83615; 83690; 83735; 83970; 84100; 84153; 84439; 84443; 84550; 84702; 85014; 85018; 85025; 85027; 85610; 87040; 87086; 87205; 87633; 88304; 88305; 88341; 88342; 88344; 92526; 92610; 93005; 97163; 99152; 99153; 99285; A9540; J0692; J0696; J0897; J1100; J1644; J1938; J2003; J2250; J2430; J3010; J3370; J7120

== ENCOUNTER → 2024-09-03 12:34 | Outpatient (BNV) | payer MEDICARE, SELFPAY | PROVIDERS: Emergency Provider Emergency Medicine; PCP Internal Medicine; Visit Provider Internal Medicine Cardiovascular Disease | DX: I44.4 Left anterior fascicular block (principal); R00.0 Tachycardia, unspecified | CPT/HCPCS: 93010 ==

== ENCOUNTER → 2024-09-03 12:36 | Outpatient (BNV) | payer MEDICARE, SELFPAY | PROVIDERS: Emergency Provider Emergency Medicine; PCP Internal Medicine; Visit Provider Radiology Diagnostic Radiology | DX: R53.1 Weakness (principal) | CPT/HCPCS: 71045 ==

== ENCOUNTER 2024-09-03 14:47 | Outpatient (BNV) | payer MEDICARE, SELFPAY | END 2024-09-04 09:52 | PROVIDERS: Admitting Provider Nurse Practitioner Acute Care; Emergency Provider Emergency Medicine; PCP Internal Medicine; Visit Provider Radiology Vascular & Interventional Radiology | DX: D40.0 Neoplasm of uncertain behavior of prostate (principal); R91.8 Other nonspecific abnormal finding of lung field | CPT/HCPCS: 71250 ==

== ENCOUNTER 2024-09-03 14:47 | Outpatient (BNV) | payer MEDICARE, SELFPAY | END 2024-09-06 13:24 | PROVIDERS: Admitting Provider Nurse Practitioner Acute Care; Emergency Provider Emergency Medicine; PCP Internal Medicine; Visit Provider Student in an Organized Health Care Education/Training Program | DX: R19.09 Other intra-abdominal and pelvic swelling, mass and lump (principal) | CPT/HCPCS: 49180; 77012 ==

== ENCOUNTER 2024-09-03 14:47 | Outpatient (BNV) | payer MEDICARE, SELFPAY | END 2024-09-10 12:35 | PROVIDERS: Admitting Provider Nurse Practitioner Acute Care; Emergency Provider Emergency Medicine; PCP Internal Medicine; Visit Provider Radiology Diagnostic Radiology | DX: R00.0 Tachycardia, unspecified (principal); R94.2 Abnormal results of pulmonary function studies | CPT/HCPCS: 71045; 78580 ==

== ENCOUNTER → 2024-09-03 14:47 | Outpatient (BNV) | payer MEDICARE, SELFPAY | PROVIDERS: Admitting Provider Nurse Practitioner Acute Care; Emergency Provider Emergency Medicine; PCP Internal Medicine; Visit Provider Nurse Practitioner Family | DX: N17.9 Acute kidney failure, unspecified (principal); E83.52 Hypercalcemia | CPT/HCPCS: 99222; 99232 ==

== ENCOUNTER → 2024-09-03 14:47 | Outpatient (BNV) | payer MEDICARE, SELFPAY | PROVIDERS: Admitting Provider Nurse Practitioner Acute Care; Emergency Provider Emergency Medicine; PCP Internal Medicine; Visit Provider Internal Medicine Critical Care Medicine | DX: N17.9 Acute kidney failure, unspecified (principal); N28.89 Other specified disorders of kidney and ureter; E87.5 Hyperkalemia | CPT/HCPCS: 99232 ==

== ENCOUNTER → 2024-09-03 14:47 | Outpatient (BNV) | payer MEDICARE, SELFPAY | PROVIDERS: Admitting Provider Nurse Practitioner Acute Care; Emergency Provider Emergency Medicine; PCP Internal Medicine; Visit Provider Nurse Practitioner Acute Care | DX: I10 Essential (primary) hypertension (principal) | CPT/HCPCS: 99223; 99232; 99239; 99499 ==

== ENCOUNTER → 2024-09-03 14:47 | Outpatient (BNV) | payer MEDICARE, SELFPAY | PROVIDERS: Admitting Provider Nurse Practitioner Acute Care; Emergency Provider Emergency Medicine; PCP Internal Medicine; Visit Provider Urology | DX: N30.40 Irradiation cystitis without hematuria (principal) | CPT/HCPCS: 99232 ==

== ENCOUNTER → 2024-09-03 14:47 | Outpatient (BNV) | payer MEDICARE, SELFPAY | PROVIDERS: Admitting Provider Nurse Practitioner Acute Care; Emergency Provider Emergency Medicine; PCP Internal Medicine; Visit Provider Internal Medicine | DX: R59.9 Enlarged lymph nodes, unspecified (principal); E83.52 Hypercalcemia; N17.9 Acute kidney failure, unspecified; R63.4 Abnormal weight loss | CPT/HCPCS: 99223 ==

== ENCOUNTER 2024-09-16 09:15 | Inpatient (IN) | payer MEDICARE, SELFPAY ==
--- NOTE | 2024-09-16 | ECG_ITS ---
Test Reason : weakness Blood Pressure : */* mmHG Vent. Rate : 105 BPM Atrial Rate : 105 BPM P-R Int : 152 ms QRS Dur : 88 ms QT Int : 322 ms P-R-T Axes : 46 -52 65 degrees QTcB Int : 425 ms Sinus tachycardia Left anterior fascicular block Septal infarct (cited on or before 03-Sep-2024) Abnormal ECG When compared with ECG of 03-Sep-2024 12:39, Questionable change in initial forces of Anterolateral leads Referred By: Loren Martinez Electronically Signed By: PITER ZIMMERMAN
--- NOTE | ~2024-09-16 | CT_ITS ---
CLINICAL HISTORY: distention ? perf CT abdomen and pelvis with contrast Comparison: CT/OH/SR - CT ABDOMEN PELVIS WO IV CON - 09/04/24 13:36 EDT Findings: Multiple nodules at the lung bases again seen, however nodules are obscured by bibasilar atelectasis and bilateral pleural effusions. There are enhancing masses in the inferior pleural space, along the margins of the lungs. Numerous liver lesions consistent with extensive hepatic metastatic disease. Lesions were not well seen on prior study. Spleen is normal in size. There is a central venous catheter extending into the hepatic IVC. Multiple large masses obliterate much of the right renal parenchyma as well as multiple cystic lesions. Moderate hydronephrosis of the left kidney is unchanged. There is an enteric tube terminating in the mid stomach. There is a collection of high attenuation material in the region of the duodenum, which may be contrast material. Diffuse body wall anasarca. There has been marked increase in size of pelvic mass, now measuring 16.9 x 16.7 cm, previously measuring 12 x 9 cm. There are innumerable peritoneal implants of tumor and diffuse tumors involvement of the omentum. Marked retroperitoneal lymphadenopathy is present. Tumor mass significantly flattens the IVC. There is a right inguinal hernia containing tumor material. In the right inguinal region there is a 5.3 cm lobulated mass consistent with metastatic disease. There is large volume ascites within the abdomen. There is a Morales catheter within the urinary bladder. No acute fracture. IMPRESSION: 1. Interval progression of disease, with extensive metastatic disease, and large masses within the pelvis and obliterating the right kidney. 2. Persistent moderate hydronephrosis of the left kidney. Likely compression of the left ureter by tumor mass. 3. Large volume ascites. Diffuse body wall anasarca. There is compression of the IVC secondary to masses. Bilateral pleural effusions. 4. Central venous catheter with tip in the perihepatic IVC. This document has been electronically signed by: Jus Coleman MD on 10/01/2024 02:54:04
--- NOTE | ~2024-09-16 | FL_ITS ---
EXAMINATION: Modified Barium Swallow CLINICAL INFORMATION: Dysphagia. COMPARISON: None. TECHNIQUE: Modified barium swallow was performed under lateral fluoroscopy with patient in standing position. Barium mixed with solids and liquids of different consistencies was administered by the speech pathologist. Examination was recorded in the fluoroscopy suite. FINDINGS: Penetration to level of the true cords was present on thin liquids consistently. No gross subglottic aspiration was evident. No laryngeal penetration on thicker liquids or solids. Pooling and stasis in the vallecula and piriform sinuses was noted consistently. FLUOROSCOPY TIME: 2 minutes, 21 seconds Number of Spot Images: N/A DOSE AREA PRODUCT: 143.0 dGy-m2 FL/FL Modified Barium Swallow IMPRESSION: Laryngeal penetration to the level of the true cords present on thin liquids consistently. No subglottic aspiration noted. Please refer to the full speech therapy report to follow for further details. Electronically signed by: Avi Luz MD 09/19/2024 07:48 AM EDT
--- NOTE | ~2024-09-16 | XR_ITS ---
EXAMINATION: XR CHEST 1 VIEW HISTORY: exertional dyspnea COMPARISON: Comparison is made with the prior examination dated 09/10/2024. FINDINGS: A single AP portable view of the chest performed at 10:33 AM is submitted. A rounded nodule measuring approximately 1.9 cm is seen in the right lower lung zone, unchanged from prior imaging. No focal airspace opacity is seen. There is no pleural effusion, pneumothorax, or pulmonary vascular congestion. The heart is normal in size. There is degenerative disc disease of the spine. XR/XR chest 1V IMPRESSION: Stable right lower lobe pulmonary nodule. No focal airspace opacity is identified. Electronically signed by: Jean Solis MD 09/16/2024 10:42 AM EDT
--- NOTE | ~2024-09-16 | XR_ITS ---
CLINICAL HISTORY: SOB 1 view chest x-ray Comparison: 09/24/2024 Findings: There is consolidation in the right lung and left lung base, possible pneumonia or subsegmental atelectasis. The exam is otherwise unchanged. IMPRESSION: 1. Bilateral consolidation, differential considerations noted. This document has been electronically signed by: Carl Nye MD on 09/29/2024 08:49:09
--- NOTE | ~2024-09-16 | CT_ITS ---
EXAMINATION: CT HEAD WITHOUT IV CONTRAST HISTORY: confusion, ?mets. TECHNIQUE: Unenhanced helical CT of the head was performed per standard departmental protocol. Coronal and sagittal reformats of the head were also evaluated. One or more of the following techniques was used for dose reduction: Automated exposure control, adjustment of the mA and/or kV according to patient size, use of iterative reconstruction technique. DLP: 712 mGy-cm COMPARISON: There are no prior studies available for comparison. FINDINGS: BRAIN: There is diffuse prominence of the ventricular system and cortical sulci, consistent with atrophy. Periventricular and subcortical white matter hypodensities are noted which are nonspecific, but often seen in the setting of small vessel ischemic disease. There is no mass effect or midline shift. No intra- or extra-axial fluid collections are identified. SINUSES: The visualized paranasal sinuses are clear. The mastoid air cells and middle ear cavities are well pneumatized. ORBITS: The visualized orbits are unremarkable. BONES/SOFT TISSUES: The extracranial soft tissues are unremarkable. The calvarium is intact. No suspicious lytic or sclerotic lesions. CT/CT head/brain wo IV con IMPRESSION: Atrophy and findings consistent with small vessel ischemic disease of the white matter. No mass effect or midline shift to suggest metastatic disease. However evaluation is limited on an unenhanced head CT. If there remains clinical concern for metastatic disease, MRI with contrast is recommended. Electronically signed by: Jean Solis MD 09/16/2024 01:21 PM EDT
--- NOTE | ~2024-09-16 | XR_ITS ---
CLINICAL HISTORY: L IJ CVL placement 1 view chest x-ray Comparison: CR - XR CHEST 1V - 09/30/24 22:37 EDT Findings: Low lung volumes. Similar to prior. Mild atelectasis at the lung bases. No pneumothorax. ET tube 4.5 cm above the rickie. Normal size heart. Right internal jugular dialysis catheter is at the lower hepatic IVC. Similar to prior. No acute fracture. NG tube in the upper body of stomach. IMPRESSION: Left internal jugular central venous catheter has been placed at the cavoatrial junction. This document has been electronically signed by: Caryn Amador MD on 10/01/2024 03:56:55
--- NOTE | ~2024-09-16 | XR_ITS ---
EXAMINATION: XR CHEST CLINICAL INFORMATION: Post left lung biopsy. Pneumothorax. COMPARISON: Chest x-ray 09/16/2024 TECHNIQUE: Frontal view of the chest was obtained. FINDINGS: Post left lung biopsy there is no visible left pneumothorax. The lungs are hypoexpanded with mild haziness in both lung bases. Small bilateral pulmonary nodules are noted. Heart size and pulmonary vascularity is normal. There is a right central venous catheter with its tip in mid SVC. There is moderate dorsal spine spondylosis. XR/XR chest 1V IMPRESSION: Post left lung biopsy there is no pneumothorax. Electronically signed by: Chidi Guidry MD 09/24/2024 04:27 PM EDT
--- NOTE | ~2024-09-16 | US_ITS ---
EXAMINATION: US RETROPERITONEAL LIMITED (RENAL ONLY) CLINICAL INFORMATION: HPI. COMPARISON: CT abdomen and pelvis 09/04/2024 TECHNIQUE: Routine ultrasound imaging of both kidneys was performed. FINDINGS: RIGHT KIDNEY: 11.5 and 9.3 x 6.6 cm (SAG x AP x TRV). The kidney is normal in size, contour, and echogenicity. Renal cortical thickness is normal. There are multiple anechoic cysts the largest mid pole cyst measuring 5.2 x 3.8 x 4.4 cm. Some of this cyst have septations. There is solid-appearing complex mass mid to lower pole measuring 7.1 x 5.5 x 6.1 cm. No echogenic calculi or hydronephrosis. LEFT KIDNEY: 11.3 x 8.1 x 7.6 cm cm (SAG x AP x TRV). The kidney is normal in size, contour, and echogenicity. Renal cortical thickness is normal. There is anechoic cyst upper pole measuring 3.0 x 3.4 x 3.5 cm. . There is mild hydronephrosis.. Incidental finding of a small amount of free fluid in the perihepatic space and large amount of fluid in the left upper quadrant. There is incidental finding of a right hepatic hypoechoic mass measuring 2.6 x 2.5 x 2.8 cm US/US renal BI IMPRESSION: Multiple right renal cyst with. One of these lesions appears fairly solid questioning mass. It corresponds to a lesion in the midpole on axial image 52/2. Mild left renal hydronephrosis and a simple cyst upper pole left kidney. Incidental finding of free fluid moderate in the left upper quadrant. Incidental finding of a solid mass in the right hepatic lobe Electronically signed by: Chidi Guidry MD 09/17/2024 11:55 AM EDT
--- NOTE | ~2024-09-16 | XR_ITS ---
EXAMINATION: XR CHEST CLINICAL INFORMATION: hypoxia COMPARISON: September 29, 2024. TECHNIQUE: Frontal view of the chest was obtained. FINDINGS: Poor inspiration. No gross pneumothorax. Faint pulmonary patchy opacities. Cardiomediastinal silhouette size is normal. Right-sided central venous line catheter ends at the inferior vena cava /intrahepatic vena cava region. Radiopaque material in the right upper abdomen. XR/XR chest 1V IMPRESSION: Poor inspiration. No gross pneumothorax. Questionable bilateral pleural effusions, small volume/subpulmonic. Pulmonary nodules. Acute intra-abdominal pathology cannot be excluded. Electronically signed by: Zoran Sibley MD 09/30/2024 10:29 AM EDT
--- NOTE | ~2024-09-16 | US_ITS ---
EXAMINATION: US TRIPLEX LOWER EXTREMITY, RIGHT CLINICAL INFORMATION: Right lower extremity swelling and edema. COMPARISON: None available. TECHNIQUE: Color-flow triplex imaging with spectral analysis and compression Doppler were performed on the right lower extremity. FINDINGS: Respiratory variation, normal compression and augmented flow are noted throughout the right lower extremity. The visualized common femoral vein, superficial femoral vein, profunda femoral vein, popliteal vein and midcalf peroneal and posterior tibial venous segments show no evidence of deep venous thrombosis. There is no Abdi's cyst. US/US venous duplex LE RT IMPRESSION: No evidence of deep venous thrombosis involving the right lower extremity. Electronically signed by: Avi Luz MD 09/16/2024 11:26 AM EDT
--- NOTE | ~2024-09-16 | CT_ITS ---
CLINICAL HISTORY: Hypoxia tachycardia cancer recent bx r o PE CT angiography chest with contrast. 3D Postprocessing. Comparison: CR - XR CHEST 1V - 09/30/24 22:[address]/SR - CT CHEST WO IV CON - 09/04/24 09:52 EDT Findings: Mild cardiomegaly with coronary artery calcifications. The thoracic aorta is normal caliber. Possible small filling defect in the right lower lobe segmental branch, series 10, image 82. No other pulmonary artery emboli. Superior mediastinal adenopathy is present. The patient is intubated in the endotracheal tube tip is located 4.7 cm above the rickie. Very low lung volumes. Marked atelectasis at both lung bases. There is a small right and moderate left pleural effusion. Enhancing pleural metastases at the bilateral lung bases. Numerous pulmonary nodules again seen, many of which are new or increased in size from prior. There is an enteric tube which courses into the mid stomach. There is a right IJ non tunneled temporary dialysis catheter with tip in the hepatic IVC. Consider pulling back by 7.6 cm for positioning within the right atrium. Please see same-day CT abdomen and pelvis report for discussion of upper abdomen. No acute fractures. IMPRESSION: 1. Possible small isolated segmental pulmonary embolus in a right lower lobe segmental branch. No other pulmonary emboli seen. 2. Interval increase of size and number of pulmonary nodules. Interval development of pleural-based metastases. 3. Small right and moderate left pleural effusion. 4. Temporary hemodialysis catheter with tip in the intrahepatic IVC. Consider pulling back by 7.6 cm for positioning within the right atrium. This document has been electronically signed by: Jus Coleman MD on 10/01/2024 03:06:25
--- NOTE | ~2024-09-16 | CT_ITS ---
CT-guided biopsy right lower lobe nodule PROCEDURES: 1. Limited preprocedure CT of the chest. Permanent images saved in PACS. 2. CT-guided biopsy of the right lower lobe lung mass. 3. Limited postprocedure CT of the chest. Permanent images saved in PACS. COMPLICATIONS: None ESTIMATED BLOOD LOSS: < 5 ml CONTRAST: None SPECIMENS: 3 x 18 g cores were sent for pathology PROCEDURE NOTE: The procedure, risks, benefits, and alternatives were carefully explained to the patient and written informed consent was obtained. The patient was placed lateral decubitus on the CT table. A timeout was performed. A limited CT of the chest was performed to localize the lung mass and choose appropriate needle entry and trajectory. The patient was prepped and draped in usual sterile fashion. The skin and deeper soft tissues were anesthetized with lidocaine. Under CT guidance, a 17 gague trocar needle was advanced to the right lower lobe lung mass. A 18 gauge biopsy device was inserted through the trocar needle and advanced into the mass. A total of 3 cores were performed. The specimens were placed in formalin and sent to pathology. The needle was removed. A bandage was applied. A limited postprocedure CT of the chest was performed, which demonstrated trace pneumothorax. Repeat scan 5 minutes later did not demonstrate any change. There were no immediate complications. The patient was stable after the procedure and was transferred to the post anesthesia care unit. CT/CT biopsy lung RT Impression: CT-guided right lower lobe lung mass biopsy Electronically signed by: Charles Flynn MD 09/24/2024 03:03 PM EDT
--- NOTE | ~2024-09-16 | XR_ITS ---
CLINICAL HISTORY: <OBR.31.1><OBR.31.1.1>intubation </OBR.31.1.1><OBR.31.1.2> OG tube</OBR.31.1.2></OB R.31.1> 1 view chest x-ray Comparison: Same date Findings: Endotracheal tube tip 4 cm above rickie. NG tube tip in proximal stomach. Right central line is unchanged. Stable bilateral basilar atelectasis. No acute bony abnormality. Impression: Support line insertions outlined above Stable bilateral basilar atelectasis This document has been electronically signed by: Malik Elliott MD on 09/30/2024 23:26:15
--- NOTE | ~2024-09-16 | IR_ITS ---
PROCEDURE: IR INSERTION OF CENTRAL VENOUS CATHETER CLINICAL INFORMATION: Elevated creatinine An for dialysis. COMPARISON: None available. TECHNIQUE: Following explaining fluoroscopy and ultrasound-guided placement of temporary multiple core catheter procedure, benefits and risk, a written consent was obtained. Patient was placed supine on fluoroscopy table and preliminary ultrasound imaging was obtained in the Angio-Seal. An optimal site was marked along the skin for access. The whole right neck area was cleaned and draped in usual sterile manner. 1% lidocaine was administered at puncture site. Under ultrasound guidance a singlewall needle was advanced and right distal jugular vein was punctured. After obtaining venous return a thin guidewire was advanced and needle withdrawn. A 3 Niuean dilator was advanced over the guidewire and the guidewire removed. A 0.35 J-wire was advanced through the 3 Niuean dilator and the dilator exchanged for a 5 Niuean followed by 7 Niuean dilators. A 12 Niuean [place] dialysis catheter was placed over the guidewire and the guidewire removed. Both ports of the catheter flushed with heparinized saline. Sterile dressing applied post procedure. All elements of maximal sterile barrier technique followed including use of cap, mask, sterile gown, sterile gloves, a sterile full body drape and hand hygiene. Also followed skin preparation with 2% chlorhexidine for cutaneous antisepsis, and sterile ultrasound preparation with sterile gel and probe cover when applicable. Patient tolerated procedure extremely well. FINDINGS/ IR/IR cvc insert non tunnel IMPRESSION: On preliminary ultrasound imaging IVC is widely patent with minimal wall thickening. Successful placement of 12 Niuean dialysis dialysis catheter was placed under fluoroscopy an ultrasound guidance. The catheter is ready for use. Fluoroscopy time: 0.2 minutes. Dose: 0.8 mGy. Electronically signed by: Chidi Guidry MD 09/26/2024 11:14 AM EDT
[2024-09-16 09:42] VITALS: BP 123/68; BP 133/62; PULSE 112; PULSE 118; RESP 16; TEMP 36.3; O2SAT 96; BMI 28.2
--- NOTE | 2024-09-16 09:57 | ED_ITS ---
HPI - General Adult General Chief complaint: Weakness Stated complaint: WEAKNESS,TACHYCARDIA,FALL Time Seen by Provider: 09/16/24 09:51 Source: patient, family, RN notes reviewed and old records reviewed History of Present Illness ED Provider: Loren Martinez PA-C HPI narrative: 79-year-old male with a past medical history prostate CA s/p radiation and prostatectomy, HTN, HLD, indwelling Morales catheter, upper extremity DVT not currently on anticoagulation per family, presenting to the ED via EMS from [facility] complaining of increased generalized fatigue / weakness, decreased p.o. intake, and confusion x this morning. Per family patient thought he was scheduled for surgery this morning. 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 Patient also reports RLE edema and exertional dyspnea. Denies headache, chest pain, abdominal pain, diarrhea chest constipation, dysuria Related Data Home Medications ?Medication ?Instructions ?Recorded ?Confirmed acetaminophen 325 mg tablet 650 mg PO Q4H PRN Mild Pain (Scale 09/16/24 09/16/24 Score 1-4) acetaminophen 325 mg tablet 650 mg PO Q6H PRN Fever 09/16/24 09/16/24 bisacodyl 10 mg rectal suppository 10 mg PA DAILY PRN Constipation 09/16/24 09/16/24 dexamethasone 1 mg tablet See Taper PO DAILY 09/16/24 09/16/24 magnesium hydroxide 400 mg/5 mL 30 ml PO DAILY PRN Constipation 09/16/24 09/16/24 oral suspension (Milk of Magnesia) ondansetron 4 mg disintegrating 4 mg PO Q6H PRN Nausea And Vomiting 09/16/24 09/16/24 tablet sodium phosphates 19 gram-7 118 ml PA DAILY PRN Constipation 09/16/24 09/16/24 gram/118 mL enema Previous Rx's ?Medication ?Instructions ?Recorded polyethylene glycol 3350 17 17 g PO DAILY constipation #510 07/08/24 gram/dose oral powder (Miralax) grams trazodone 50 mg tablet 50 mg PO BEDTIME for insomnia #90 08/23/24 tabs amlodipine 5 mg tablet 5 mg PO DAILY #30 tabs 09/10/24 metoprolol tartrate 25 mg tablet 12.5 mg (1/2 x 25 mg) PO BID #60 09/10/24 tabs Allergies Allergy/AdvReac Type Severity Reaction Status Date / Time No Known Allergies Allergy Verified 09/16/24 09:45 Review of Systems 2 Review of Systems: Yes all other systems are reviewed and are negative Constitutional: Constitutional: Reports as per HPI Neurologic: Denies Abnormal speech present [facility] Past Medical History Attestation statement: The following information was validated with the patient. Source: old records reviewed Medical History Urinary retention Rene hematuria Acute urinary retention Radiation cystitis Hypertension Diverticulosis Overweight (BMI 25.0-29.9) History of prostate cancer Renal cyst Vitamin D deficiency Osteoarthritis of left knee Impaired fasting glucose Pure hypercholesterolemia Benign essential hypertension Surgical History Hx of right inguinal hernia repair (02/16/23) History of ankle surgery History of colonoscopy History of meniscectomy of left knee (~06/05/12) Hx of prostatectomy Hx of umbilical hernia repair Family History Family History Father Cancer Mother Colon cancer Social History Social History Household Members: Spouse Housing: House Are you a primary director of primary care to a significant other at home: No Do you presently have visiting nurse or other home services: No Alcohol intake: current Alcohol intake frequency: 0-2 drinks per day Alcohol type: beer Comment: . 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 Cognitive needs: No Hearing needs: No Vision needs: Yes (Glasses) Physical Exam ED Vital Signs: Vital Signs - 24 hr 09/16/24 09:42 09/16/24 12:10 09/16/24 14:18 Temperature 97.4 F 97.7 F 97.7 F Pulse Rate 112 H 105 H 106 H Respiratory Rate 16 26 H 23 H Blood Pressure 133/62 149/76 H Pulse Oximetry 96 97 98 Oxygen Delivery Method Room Air Room Air Room Air BMI result Body Mass Index 28.2 Const General: cooperative, no acute distress and awake Nutritional Appearance: thin Orientation/consciousness: patient oriented x3 Limitations: no limitations HENMT Head: Yes normal to inspection and Yes atraumatic Ears: hearing grossly normal bilaterally General nose exam: Normal external nose present Face and sinus: Yes normal facial exam Mouth: mucous membranes dry Eyes General: appearance normal, both eyes and all related structures EOM: EOMs intact bilaterally Neck Neck: Yes normal visual inspection and Yes no meningeal signs Resp Effort & Inspection: normal respiratory effort and no respiratory distress Auscultation: clear to auscultation bilaterally, no crackles, no rhonchi and no wheezes Cardio Rate: regular rate Heart sounds: S1 normal heart sound present and S2 normal heart sound present GI Inspection: Yes normal to inspection Palpation (GI): Soft to palpation, nontender, no guarding and not rigid Skin Rashes: no rashes Wounds: no wounds Neuro General: patient oriented x3, tone normal, moves all extremities, no meningeal signs, no focal motor deficits and CN's II-XI intact bilaterally Cranial nerves: Yes CN's II-XII intact bilaterally and Yes Bilaterally intact EOM present Cognition (Neuro): normal cognition Speech: No Abnormal speech present Motor exam (neuro): 5/5 motor strength present throughout and Pronator motor function not present Extrem Other: 3+ RLE edema Course Course Course Narrative: -1120-- mild leukocytosis 12.9. Acute on chronic anemia. + MARYSE on CKD with a BUN of 87, creatinine of 3.34 > suspect from dehydration/ volume depletion. Lower suspicion for acute obstructive pathology at this time. - Troponin 11.3 > likely from renal dysfunction. Will obtain 3 hour repeat - UA with blood, leuk esterase, RBCs, and 11-20 WBCs > Chronic indwelling Morales catheter. Likely colonized however with acute confusion / leukocytosis will empirically treat with IV Rocephin. XR chest 1V IMPRESSION: Stable right lower lobe pulmonary nodule. No focal airspace opacity is identified. -1329-- lactic acid WNL. Repeat troponin without significant rise, CA unlikely. viral testing negative US venous duplex LE RT IMPRESSION: No evidence of deep venous thrombosis involving the right lower extremity. CT head/brain wo IV con IMPRESSION: Atrophy and findings consistent with small vessel ischemic disease of the white matter. No mass effect or midline shift to suggest metastatic disease. However evaluation is limited on an unenhanced head CT. If there remains clinical concern for metastatic disease, MRI with contrast is recommended. > plan to admit for further management 1425 Medications Administered Generic Name Dose Route Start Last Admin Trade Name Freq PRN Reason Stop Dose Admin Albumin Human 100 mls @ 100 mls/hr 09/16/24 18:30 09/16/24 18:36 Kedbumin 25 % IV 09/17/24 01:29 100 mls/hr Q6H KINSEY Administration Sodium Chloride 3 ml 09/16/24 16:00 09/16/24 18:06 0.9 % Sodium Chloride Flush 3 Ml Syringe IVFLUSH Not Given QSHIFT KINSEY Discontinued Medications Generic Name Dose Route Start Last Admin Trade Name Freq PRN Reason Stop Dose Admin Ceftriaxone Sodium 1 gm 09/16/24 11:23 09/16/24 13:06 Ceftriaxone Sodium 1 Gm Vial IVPUSH 09/16/24 11:24 1 gm ONCE ONE Administration Sodium Chloride 1,000 mls @ 999 mls/hr 09/16/24 10:15 09/16/24 17:21 Ns IV 09/16/24 11:15 Infused .Q1H1M KINSEY Infusion Sodium Chloride 1,000 mls @ 999 mls/hr 09/16/24 11:30 09/16/24 13:06 Ns IV 09/16/24 12:30 Infused .Q1H1M KINSEY Infusion Medical Decision Making Medical Decision Making MDM Narrative: 79-year-old male with a past medical history prostate CA s/p radiation and prostatectomy, HTN, HLD, indwelling Morales catheter, upper extremity DVT not currently on anticoagulation per family, presenting to the ED via EMS from [facility] complaining of increased generalized fatigue / weakness, decreased p.o. intake, and confusion x this morning. On exam tachycardic, NAD, A&O x3, no focal deficits, lungs CTA, RLE pitting edema appreciated. Concern for metabolic/infectious etiologies including UTI /MARYSE/dehydration. Concern for metastatic cancer/brain Mets vs encephalopathy. Concern for DVT/PE. lower suspicion for acute ACS, dissection low suspicion for severe sepsis at this time plan: EKG, labs, UA, CXR, head CT, SARs, anticipate admission Please refer to course for remaining clinical decision making, interpretation of labs/imaging results, and discussions with consultants and/or family members. Differential Diagnosis Differential Diagnoses: The differential diagnosis associated with the presentation includes As above Admission/Observation Consideration of admission/observation: Escalation of care including admission/observation considered Consult Healthcare Provider Management of the patient was discussed with: Hospitalist Lab Data MDM Lab Attestation statement: I reviewed the patient's lab results. 09/16/24 10:19 09/16/24 10:19 Labs: Lab Results 09/16/24 09/16/24 09/16/24 Range/Units 10:19 10:58 11:35 WBC 12.9 H (4.8-10.8) X10*3/uL RBC 3.30 L (4.60-5.80) X10*6/uL Hgb 9.4 L (14.0-18.0) g/dl Hct 27.8 L (42.0-52.0) % MCV 84.2 (80.0-98.0) fL MCH 28.5 (27.0-33.0) pg MCHC 33.8 (31.0-36.0) g/dl RDW 15.9 (11.0-16.0) % Plt Count 227 (160-400) X10*3/uL MPV 8.0 L (9.4-12.4) fL Immature Gran % (Auto) 0.6 H (0.0-0.4) % Neut % (Auto) 92.7 H (45-73) % Lymph % (Auto) 2.5 L (20-40) % [place] % (Auto) 3.9 (2-11) % Eos % (Auto) 0.2 (0-4) % Baso % (Auto) 0.1 (0-2) % Lymph # (Auto) 0.3 L (1.2-4.9) X10*3/uL [place] # (Auto) 0.5 (0.1-1.2) X10*3/uL Eos # (Auto) 0.0 (0.0-0.4) X10*3/uL Baso # (Auto) 0.0 (0.0-0.2) X10*3/uL Abs Immat Gran (auto) 0.08 H (0.00-0.03) X10*3/uL Absolute Neuts (auto) 12.0 H (2.0-8.3) x10*3/uL Absolute Nucleated RBC 0.000 (0.0-0.012) X10*3/uL Nucleated RBC % (auto) 0.0 (0.0-0.2) /100WBC Smear Tech's Comments VERIFIED PT 14.1 H (10.9-12.4) SEC INR 1.2 H (0.9-1.1) Sodium 132 L (135-145) mmol/L Potassium 5.0 D (3.3-5.1) mmol/L Chloride 103 (96-108) mmol/L Carbon Dioxide 19 L (22-29) mmol/L Anion Gap 15 (12-20) BUN 87 H (9-16) mg/dL Creatinine 3.34 H (0.5-1.4) mg/dL Estim Creat Clear Calc 19.2 Estimated GFR 18 Fasting Glucose 108 H (60-99) mg/dL Lactic Acid (0.5-2.0) mmol/L Calcium 11.9 H (8.4-10.2) mg/dL Magnesium 2.1 (1.6-2.6) mg/dL Total Bilirubin 0.3 (0.0-1.0) mg/dL AST 47 H (5-37) U/L ALT 31 (0-40) U/L Alkaline Phosphatase 68 (39-117) U/L Ammonia 37 (13-55) umol/L Troponin I High Sens 11.3 (<3.5-35.0) ng/L B-Natriuretic Peptide (<100) pg/mL Total Protein 5.7 L (6.5-8.0) g/dL Albumin 2.7 L (3.5-5.0) g/dL Urine Color Dark Yellow Urine Appearance Cloudy Urine pH 5.5 (5.0-9.0) Ur Specific [place] 1.015 (1.005-1.025) Urine Protein 300 (3+) H (Neg-Trace) mg/dL Urine Glucose (UA) Negative (Negative) mg/dL Urine Ketones Negative (Negative) mg/dL Urine Blood Large (3+) H (Negative) Urine Nitrite Negative (Negative) Ur Leukocyte Esterase Large (3+) H (Negative) Urine RBC >20 H (0-2) /HPF Urine WBC 11-20 (0-5) /HPF Ur Squamous Epith Cells 0-2 (0-2) /HPF Urine Bacteria 1+ (None Seen) Hyaline Casts 0-2 (0-2) /LPF Influenza Type A (PCR) NEGATIVE (Negative) Influenza Type B (PCR) NEGATIVE (Negative) RSV RNA Qual (PCR) NEGATIVE (Negative) SARS-CoV-2 RNA (RT-PCR) NEGATIVE (Negative) 09/16/24 Range/Units 11:52 WBC (4.8-10.8) X10*3/uL RBC (4.60-5.80) X10*6/uL Hgb (14.0-18.0) g/dl Hct (42.0-52.0) % MCV (80.0-98.0) fL MCH (27.0-33.0) pg MCHC (31.0-36.0) g/dl RDW (11.0-16.0) % Plt Count (160-400) X10*3/uL MPV (9.4-12.4) fL Immature Gran % (Auto) (0.0-0.4) % Neut % (Auto) (45-73) % Lymph % (Auto) (20-40) % [place] % (Auto) (2-11) % Eos % (Auto) (0-4) % Baso % (Auto) (0-2) % Lymph # (Auto) (1.2-4.9) X10*3/uL [place] # (Auto) (0.1-1.2) X10*3/uL Eos # (Auto) (0.0-0.4) X10*3/uL Baso # (Auto) (0.0-0.2) X10*3/uL Abs Immat Gran (auto) (0.00-0.03) X10*3/uL Absolute Neuts (auto) (2.0-8.3) x10*3/uL Absolute Nucleated RBC (0.0-0.012) X10*3/uL Nucleated RBC % (auto) (0.0-0.2) /100WBC Smear Tech's Comments PT (10.9-12.4) SEC INR (0.9-1.1) Sodium (135-145) mmol/L Potassium (3.3-5.1) mmol/L Chloride (96-108) mmol/L Carbon Dioxide (22-29) mmol/L Anion Gap (12-20) BUN (9-16) mg/dL Creatinine (0.5-1.4) mg/dL Estim Creat Clear Calc Estimated GFR Fasting Glucose (60-99) mg/dL Lactic Acid 1.6 (0.5-2.0) mmol/L Calcium (8.4-10.2) mg/dL Magnesium (1.6-2.6) mg/dL Total Bilirubin (0.0-1.0) mg/dL AST (5-37) U/L ALT (0-40) U/L Alkaline Phosphatase (39-117) U/L Ammonia (13-55) umol/L Troponin I High Sens 12.4 (<3.5-35.0) ng/L B-Natriuretic Peptide 60 (<100) pg/mL Total Protein (6.5-8.0) g/dL Albumin (3.5-5.0) g/dL Urine Color Urine Appearance Urine pH (5.0-9.0) Ur Specific [place] (1.005-1.025) Urine Protein (Neg-Trace) mg/dL Urine Glucose (UA) (Negative) mg/dL Urine Ketones (Negative) mg/dL Urine Blood (Negative) Urine Nitrite (Negative) Ur Leukocyte Esterase (Negative) Urine RBC (0-2) /HPF Urine WBC (0-5) /HPF Ur Squamous Epith Cells (0-2) /HPF Urine Bacteria (None Seen) Hyaline Casts (0-2) /LPF Influenza Type A (PCR) (Negative) Influenza Type B (PCR) (Negative) RSV RNA Qual (PCR) (Negative) SARS-CoV-2 RNA (RT-PCR) (Negative) Independent Interpretation I performed an independent interpretation of an: EKG, Plain X-Ray and CT Scan Radiology Impression Discussion of test interpretation with radiology: I have reviewed the radiologist's reading. Independent Historian Clinical information obtained from an independent historian. History obtained from or confirmed by: Spouse, EMS and Other ( daughter) External Record Review External record reviewed: Inpatient record, Office record, Outpatient record, Prior outpatient labs, Prior outpatient radiology, Primary care record and Outside ED record Tests considered The following testing was considered but not selected: As above Prescription Management I considered prescription management with: Other Chronic Conditions Patient?s care impacted by: Cancer and Other Social Determinants Patient?s care significantly limited by Social Determinants of Health including: Other Social Determinant of Health Critical Care Time Critical Care Time Critical Care Time: Yes Total Critical Care Time: 45 Attestation: I have personally provided critical care time exclusive of time spent on separately billable procedures. Time includes review of lab data, radiology results, discussion with consultants, and monitoring for potential decompensation. Intervention performed as documented. Discharge Plan Discharge Clinical Impression: Acute kidney injury superimposed on CKD, Dehydration, Acute UTI, Confusion Patient Disposition: Admitted As Inpatient Interventions: Admission Worksheet (ED) Last Done: 09/16/24 16:15 Discharge Date/Time: 09/16/24 16:55
[2024-09-16 10:25] LABS: Basophils Percent Auto 0.1 % (0-2); Eosinophils Percent Auto 0.2 % (0-4); Hematocrit 27.8 % (42.0-52.0); Hemoglobin 9.4 g/dl (14.0-18.0); Imm Gran Abs Auto 0.08 X10*3/uL (0.00-0.03); Imm Gran Pct Auto 0.6 % (0.0-0.4); Lymphocytes Absolute Auto 0.3 X10*3/uL (1.2-4.9); Lymphocytes Percent Auto 2.5 % (20-40); MANUAL DIFF FLAG SCAN; Mean Corpuscular HGB Conc 33.8 g/dl (31.0-36.0); Mean Corpuscular Hemoglobin 28.5 pg (27.0-33.0); Mean Corpuscular Volume 84.2 fL (80.0-98.0); Monocytes Absolute Auto 0.5 X10*3/uL (0.1-1.2); Monocytes Percent Auto 3.9 % (2-11); Neutrophils Percent Auto 92.7 % (45-73); Platelet Count 227 X10*3/uL (160-400); Red Cell Distribution Width 15.9 % (11.0-16.0); SCAN SMEAR FLAG 1; White Blood Count 12.9 X10*3/uL (4.8-10.8)
[2024-09-16 10:39] LABS: Alanine Aminotransferase 31 U/L (0-40); Albumin Level 2.7 g/dL (3.5-5.0); Alkaline Phosphatase 68 U/L (39-117); Anion Gap 15 (12-20); Aspartate Amino Transferase 47 U/L (5-37); Bilirubin Total 0.3 mg/dL (0.0-1.0); Blood Urea Nitrogen 87 mg/dL (9-16); Calcium 11.9 mg/dL (8.4-10.2); Carbon Dioxide 19 mmol/L (22-29); Chloride 103 mmol/L (96-108); Creatinine Clr Calc Pharmacy 19.2; Estimated Glomerular Filt Rate 18; Glucose Fasting 108 mg/dL (60-99); Sodium 132 mmol/L (135-145); Total Protein 5.7 g/dL (6.5-8.0)
[2024-09-16 10:48] LABS: Troponin-I High Sensitivity 11.3 ng/L (<3.5-35.0)
--- OUTSIDE RECORDS SUMMARY | 2024-09-16 10:48 | XMS_ITS ---
Author Organization [facility] Care Team Providers Care Core Analysis Operator Name Role Phone Yodit Conde UnavailPoly [place] Unavailable Unavailable Allergies and adverse reactions No Known Allergies Care Team Name Role Address Phone Organization Dates Yodit Conde [address] [facility] [address], [place], [address], [facility] (Office): : : [facility] 09/10/2024 - present Poly Kaufman [address], [address], [facility] (Office): : : [facility] 09/10/2024 - present Goals Section Description Status Target Date Charles will have no falls with injury x 90days. Active 12/10/2024 Charles will have the smalle st most effective dose without side effects x 90 days. Active 12/10/2024 Charles will not develop GI complications x 90 d ays. Active 12/10/2024 Charles will not exhibit non-verbal indicators o f pain x 90 days. Active 12/10/2024 Charles will not show signs of skin breakdown x 90 days Active 12/10/2024 Minervas ADL care needs sanjiv l be anticipated and met throughout the next review period. Active 12/10/2024 Minervas blood pressure will remain within base line x 90 days Active 12/10/2024 Norman will have an ongoing di scharge plan that provides for a safe and effective discharge. Active 12/10/2024 Norman will maintain a pattern of sleep sufficient to promote health and well-being throughout review period. Active 12/10/2024 Joses wishes as expressed i n Advance Directive will be followed Active 12/10/2024 Functional Status Code Name Recorded Time Value Entered By Chair/myt-gk-cncrk transfer 09/16/2024 Not assessed JTEJADA2 Eating 09/16/2024 Not assessed JTEJADA2 Feeding or Eating 09/16/2024 Not assessed JTEJADA2 Indicate the type of wheelchair or scooter used 09/16/2024 Independent JTEJADA2 Indicate the type of wheelchair or scooter used 09/16/2024 Manual wheelchair (physical object) JTEJADA2 Lower body dressing 09/16/2024 Not assessed JTEJADA2 Lying to sitting on side of bed 09/16/2024 Independent JTEJADA2 Oral hygiene 09/16/2024 Not assessed JTEJADA2 Personal hygiene 09/16/2024 Not assessed JTEJADA2 Putting on/taking off footwear 09/16/2024 Not assess ed JTEJADA2 Roll left and right 09/16/2024 Independent JTEJADA2 Shower/bathe self 09/16/2024 Not assessed JTEJADA2 Sit to lying 09/16/2024 Independent JTEJADA2 Sit to stand 09/16/2024 Not assessed JTEJADA2 Toilet transfer 09/16/2024 Not assessed JTEJADA2 Toileting hygiene 09/16/2024 Independent ENID2 Upper body dressing 09/16/2024 Not assessed AMARILIS Walk 10 feet 09/16/2024 Not assessed GILBERTLOCTUNDE2 Walk 150 feet 09/16/2024 Independent JALANATUNDE2 Walk 50 feet 09/16/2024 Independent ARACELIDA2 Wheel 150 feet 09/16/2024 Independent ENID2 Wheel 50 feet with two turns 09/16/2024 Not assessed ENID2 Immunizations Immunization Status Vaccine Details Vaccine Code CodeSystem Date Notes Influenza FLUAD Trivalent CVX 168 cancelled Influenza, adjuvanted, inactivated, trivalent, injectable, preservative free 168 CVX created date: 09/11/2024 consent date: 09/11/2024 Pneumococcal conjugate PCV21 DHF064 cancelled Pneumococcal conjugate vaccine, 21 valent (PCV21), polysaccharide [id number] conjugate, preservative free 327 CVX created date: 09/11/2024 consent date: 09/11/202420239035-1179 Comirnaty (eCullet) COVID19 [id number] cancelled SARS-COV-2 (COVID-19) vaccine, mRNA, spike protein, LNP, preservative free, zohaib-sucrose, 30 mcg/0.3 mL dose 309 CVX created date: 09/11/2024 consent date: 09/11/2024 Medications Section Medication Name Status Code CodeSystem Dose Route Frequency Admin Type Sig Text Start Date End Date Acetaminophen Tablet 325 MG active 653959 RXNORM 2 tablet Oral as needed PRN Give 2 tablet by mouth every 4 hours as needed for Mild Pain More than 3 doses in 48 hours, notify physic tamara/ad christiana practi ce provid er(ELIE ).Do not exceed 3g/day . (stand ing order) 2024 - Acetaminophen Tablet 325 MG active 576637 RXNORM 2 tablet Oral as needed PRN Give 2 tablet by mouth every 6 hours as needed for Temp 100F or above Notify Physic tamara/Ad christiana Practi ce provid er. Do not exceed 3g/day 2024 - Tuberculin PPD Solution 5 UNIT/0.1ML active 499222 RXNORM 0.1 ml Intrade rmal one time only One Time Only Inject 0.1 ml intrad ermall y one time only for Screen ing for 1 Day as Step 1, if positi ve obtain chest x-ray AND Inject 0.1 ml intrad ermall y one time only for Screen ing for 1 Day Step 2 admini ster 1 week after the readin g of step 1, if positi ve obtain chest x-ray 09/11 525659 RXNORM 0.1 ml Intrade rmal one time only One Time Only Inject 0.1 ml intrad ermall y one time only for Screen ing for 1 Day as Step 1, if positi ve obtain chest x-ray AND Inject 0.1 ml intrad ermall y one time only for Screen ing for 1 Day Step 2 admini ster 1 week after the readin g of step 1, if positi ve obtain chest x-ray 10/23 Milk of Magnesia Suspension 400 MG/5ML active 874948 RXNORM 30 ml Oral as needed PRN Give 30 ml by mouth as needed for Consti pation give at bedtim e if no BM in 3 days 2024 - Saline Laxative Enema active 1 dose Rectal as needed PRN Insert 1 dose rectal ly as needed for Consti pation if no result from Dulcol ax within 2 hours. If no result s from Saline laxati ve enema, call /ivelisse palacios practi ce provid er (ELIE) for furthe r orders . 2024 - Dulcolax Suppository 10 MG active 882859 RXNORM 1 suppos itory Rectal as needed PRN Insert 1 suppos itory rectal ly as needed for Consti pation if no result from MOM by next shift 2024 - AmLODIPine Besylate Tablet 5 MG active 468184 RXNORM 1 tablet Oral one time a day Routine Give 1 tablet by mouth one time a day for HTN 2024 - TraZODone HCl Tablet 50 MG active 651438 RXNORM 1 tablet Oral at bedtime Routine Give 1 tablet by mouth at bedtim e for insomn ia 2024 - dexAMETHasone Oral Tablet active 4 mg Oral one time a day Routine Give 4 mg by mouth one time a day for cancer for 7 Days AND Give 3 mg by mouth one time a day for cancer for 7 Days AND Give 2 mg by mouth one time a day for cancer for 7 Days AND Give 1 mg by mouth one time a day for cancer for 7 Days 09/18 3 mg Oral one time a day Routine Give 4 mg by mouth one time a day for cancer for 7 Days AND Give 3 mg by mouth one time a day for cancer for 7 Days AND Give 2 mg by mouth one time a day for cancer for 7 Days AND Give 1 mg by mouth one time a day for cancer for 7 Days 09/26 2 mg Oral one time a day Routine Give 4 mg by mouth one time a day for cancer for 7 Days AND Give 3 mg by mouth one time a day for cancer for 7 Days AND Give 2 mg by mouth one time a day for cancer for 7 Days AND Give 1 mg by mouth one time a day for cancer for 7 Days 10/04 1 mg Oral one time a day Routine Give 4 mg by mouth one time a day for cancer for 7 Days AND Give 3 mg by mouth one time a day for cancer for 7 Days AND Give 2 mg by mouth one time a day for cancer for 7 Days AND Give 1 mg by mouth one time a day for cancer for 7 Days 10/12 MiraLax Oral Powder 17 GM/SCOOP active 559438 RXNORM 1 scoop Oral one time a day Routine Give 1 scoop by mouth one time a day for consti pation 2024 - Metoprolol Tartrate Tablet active 12.5 mg Oral two times a day Routine Give 12.5 mg by mouth two times a day for HOLD FOR SBP < 112 or HR < 60 2024 - Zofran Oral Tablet 4 MG active 483408 RXNORM 1 tablet Oral as needed PRN Give 1 tablet by mouth every 6 hours as needed for N/V 2024 - Sodium Chloride Solution 0.9 % complete d 964067 6 RXNORM 1 liter Intrave nous one time only One Time Only Use 1 liter intrav enousl y one time only for hydrat ion for 1 Day RATE 100cc/ hr-No Flushi ng requir ed for contin uous therap y. Observ e Site for S/S infilt ration /extra vasati on at a freque ncy based on therap y and reside nt condit ion. 09/14 GuaiFENesin ER Tablet Extended Release 12 Hour 600 MG complete d 162239 RXNORM 1 tablet Oral one time only One Time Only Give 1 tablet by mouth one time only for increa sed mucus for 1 Day 09/14 Problems Problem # Description Date of onset Resolved Date Code CodeSystem Concern Status 1 OTHER OBSTRUCTIVE AND REFLUX UROPATHY 09/11/[address] active 2 ACUTE KIDNEY FAILURE, UNSPECIFIED 09/10/[address] active 3 ANEMIA, UNSPECIFIED 09/10/[address] active 4 DYSPHAGIA, UNSPECIFIED 09/10/[address] active 5 ESSENTIAL (PRIMARY) HYPERTENSION 09/10/[address] active 6 HEMATURIA, UNSPECIFIED 09/10/[address] active 7 HYPERKALEMIA 09/10/[address] activ e 8 PERSONAL HISTORY OF MALIGNANT NEOPLASM OF PROSTATE 09/10/[address] active 9 TACHYCARDIA, UNSPECIFIED 09/10/[address] active 10 WEAKNESS 09/10/[address] active Reason for Referral No Reasons for Referral Entered Social History Social History Observation Description Start Date End Date Code Code System Current Smoking Status Tobacco smoking consumption unknown 542066577 SNOMED CT Sex Assigned At Male 1945 87631-6 [facility] Gender Identity Vital Signs Code Code System Vitals Name Values and Units Timing Information 9279-1 [facility] Respiratory Rate Value=22.0 Units=/m in 09/16/2024 8310-5 [facility] Body Temperature Value=97.3 Units=?? F 09/16/2024 8867-4 [facility] Heart rate Etfsu=367.0 Units=/min 09/16/2024 23821-2 [facility] O2 % dC Oximetry Value=96.0 Units= % 09/16/2024 8462-4 [facility] Blood Pressure-Diastolic Value=62 Un its=mmHg 09/16/2024 8480-6 [facility] Blood Pressure-Systolic Edtdh=989 Un its=mmHg 09/16/2024 38665-8 [facility] Pain Level Value=0.0 09/16/2024 95179-6 [facility] Weight Thtcd=358.4 Units=Lbs 04/2024 8302-2 [facility] Height Value=69.0 Units=Inches 09/12/2024
[2024-09-16 10:50] LABS: SLIDE REVIEW VERIFIED
[2024-09-16 11:10] LABS: Appearance Urine Cloudy; Color Urine Dark Yellow; Glucose Urine UA Negative (Negative); Leukocyte Esterase Urine Large (3+) (Negative); Nitrite Urine Negative (Negative); PH 5.5 (5.0-9.0); Specific Gravity - Urine 1.015 (1.005-1.025); UMIC TRIGGER UACC YES; Urine Blood Large (3+) (Negative); Urine Ketones Negative (Negative); Urine Protein 300 (3+) mg/dL (Neg-Trace)
[2024-09-16] MEDS: 0.9 % Sodium Chloride 1,000 ML 999 ML IV ×2 (11:14→13:06)
[2024-09-16 11:18] LABS: Bacteria Urine 1+ (None Seen); Hyaline Casts Urine 0-2 /LPF (0-2); RBC Urine >20 /HPF (0-2); Squamous Epithelial Cell Urine 0-2 /HPF (0-2); UACC Culture Trigger YES
[2024-09-16 11:53] LABS: INTERNATIONAL NORM RATIO 1.2 (0.9-1.1); Prothrombin Time 14.1 SEC (10.9-12.4)
[2024-09-16 11:54] LABS: Ammonia 37 umol/L (13-55)
[2024-09-16 12:01] LABS: Magnesium 2.1 mg/dL (1.6-2.6)
[2024-09-16 12:10] VITALS: PULSE 105; RESP 26; TEMP 36.5; O2SAT 97
[2024-09-16 12:13] LABS: Lactic Acid 1.6 mmol/L (0.5-2.0)
[2024-09-16 12:20] LABS: Troponin-I High Sensitivity 12.4 ng/L (<3.5-35.0)
[2024-09-16 12:21] LABS: B Type Natriuretic Peptide 60 pg/mL (<100)
[2024-09-16 12:31] LABS: Influenza A PCR NEGATIVE (Negative); Influenza B PCR NEGATIVE (Negative); Resp Syncy Virus RNA Qual PCR NEGATIVE (Negative); SARS COV2 PCR INHOUSE NEGATIVE (Negative)
[2024-09-16] MEDS: cefTRIAXone sodium 1 GM VIAL IVPUSH (13:06)
[2024-09-16 14:18] VITALS: BP 149/76; PULSE 106; RESP 23; TEMP 36.5; O2SAT 98
--- NOTE | 2024-09-16 14:40 | MHC.EDTECH ---
gave pt some water with ice. ok per RN.
[2024-09-16 16:23] VITALS: BP 162/83; PULSE 106; RESP 26; TEMP 36; O2SAT 98
--- NOTE | 2024-09-16 16:24 | PHA.MEDREC ---
Addendum entered by Sravani Youngblood RPh 09/16/24 16:32: [facility] reviewed Original Note: Pharmacy Consult ? Medication Reconciliation Pharmacy has completed the medication reconciliation. Utilized list from [facility].
--- NOTE | 2024-09-16 16:29 | PM.IMHP ---
History of Present Illness Date of Service: 09/16/24 Chief Complaint: Weakness 79-year-old man presenting from [facility] with increased fatigue, weakness, decreased oral intake and confusion. He also has right lower extremity edema and exertional dyspnea. Apparently patient thought he was scheduled for some sort of surgery this morning. 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 He is noted to have chronic anemia, creatinine 3.34 up from 1.70 on 09/10/2024, calcium 11.9, has been chronically elevated secondary to malignancy. Blood pressure noted to be mildly elevated, patient is noted to be tachycardic and tachypneic, no fever. He received a dose of Rocephin and 2 L of IV fluids in the ER. He will be admitted for further management and treatment of acute encephalopathy secondary to UTI. Review of Systems Review of Systems: Appearing in no acute distress head is normocephalic atraumatic eyes pupils are PERRLA sclera is anicteric mouth throat mucous membranes are intact and moist neck is supple no lymphadenopathy, no JVD noted lung sounds are clear to auscultation heart regular rate rhythm, clear S1, S2 positive bowel sounds, abdomen is soft, nontender neuro patient is alert x3, no focal deficits [facility] Medical History Urinary retention Rene hematuria Acute urinary retention Radiation cystitis Hypertension Diverticulosis Overweight (BMI 25.0-29.9) History of prostate cancer Renal cyst Vitamin D deficiency Osteoarthritis of left knee Impaired fasting glucose Pure hypercholesterolemia Benign essential hypertension Family History Father Cancer Mother Colon cancer Surgical History Hx of right inguinal hernia repair (02/16/23) History of ankle surgery History of colonoscopy History of meniscectomy of left knee (~06/05/12) Hx of prostatectomy Hx of umbilical hernia repair Social History Household Members: Spouse Housing: House Are you a primary career placement services counselor to a significant other at home: No Do you presently have visiting nurse or other home services: No Alcohol intake: current Alcohol intake frequency: 0-2 drinks per day Alcohol type: beer Comment: . 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 Cognitive needs: No Hearing needs: No Vision needs: Yes (Glasses) Meds Allergies Allergy/AdvReac Type Severity Reaction Status Date / Time No Known Allergies Allergy Verified 09/16/24 09:45 Active Medications: Current Medications Acetaminophen (Acetaminophen 325 Mg Tablet) 650 mg PO Q6H PRN PRN Reason: Pain, Mild 1-3,fever,headache Calcium Carbonate (Calcium Carbonate 750 Mg Tab.Chew) 750 mg PO Q4H PRN PRN Reason: Heartburn Magnesium Hydroxide (Milk Of Magnesia 30 Ml Oral.Susp) 30 ml PO DAILY PRN PRN Reason: Constipation Melatonin (Melatonin 3 Mg Tablet) 6 mg PO BEDTIME PRN PRN Reason: Insomnia Ondansetron HCl (Ondansetron Hcl 4 Mg/2 Ml Vial) 4 mg IVPUSH Q8H PRN PRN Reason: Nausea and Vomiting Sodium Chloride (0.9 % Sodium Chloride Flush 3 Ml Syringe) 3 ml IVFLUSH [facility] Medications ?Medication ?Instructions ?Recorded ?Confirmed ?Last Taken ?Type acetaminophen 325 mg tablet 650 mg PO Q4H PRN Mild Pain (Scale 09/16/24 09/16/24 Unknown History Score 1-4) acetaminophen 325 mg tablet 650 mg PO Q6H PRN Fever 09/16/24 09/16/24 Unknown History bisacodyl 10 mg rectal suppository 10 mg AK DAILY PRN Constipation 09/16/24 09/16/24 Unknown History dexamethasone 1 mg tablet See Taper PO DAILY 09/16/24 09/16/24 Unknown History magnesium hydroxide 400 mg/5 mL 30 ml PO DAILY PRN Constipation 09/16/24 09/16/24 Unknown History oral suspension (Milk of Magnesia) ondansetron 4 mg disintegrating 4 mg PO Q6H PRN Nausea And Vomiting 09/16/24 09/16/24 Unknown History tablet sodium phosphates 19 gram-7 118 ml AK DAILY PRN Constipation 09/16/24 09/16/24 Unknown History gram/118 mL enema Physical Exam Vital Signs and Narrative: Vital Signs: Last Vital Signs Temp 96.8 F 09/16/24 16:23 Pulse 106 H 09/16/24 16:23 Resp 26 H 09/16/24 16:23 BP 162/83 H 09/16/24 16:23 Pulse Ox 98 09/16/24 16:23 O2 Del Method Room Air 09/16/24 16:23 BMI result Body Mass Index 28.2 Appearing in no acute distress head is normocephalic atraumatic eyes pupils are PERRLA sclera is anicteric mouth throat mucous membranes are intact and moist neck is supple no lymphadenopathy, no JVD noted lung sounds are clear to auscultation heart regular rate rhythm, clear S1, S2 positive bowel sounds, abdomen is soft, nontender neuro patient is alert x3, no focal deficits Results Labs 09/16/24 10:19 09/16/24 10:19 Labs: Laboratory Results - last 24 hr 09/16/24 09/16/24 09/16/24 10:19 10:58 11:35 MCV 84.2 MCH 28.5 MCHC 33.8 RDW 15.9 Plt Count 227 MPV 8.0 L Immature Gran % (Auto) 0.6 H Neut % (Auto) 92.7 H Lymph % (Auto) 2.5 L [place] % (Auto) 3.9 Eos % (Auto) 0.2 Baso % (Auto) 0.1 Lymph # (Auto) 0.3 L [place] # (Auto) 0.5 Eos # (Auto) 0.0 Baso # (Auto) 0.0 Abs Immat Gran (auto) 0.08 H Absolute Neuts (auto) 12.0 H Absolute Nucleated RBC 0.000 Nucleated RBC % (auto) 0.0 Smear Tech's Comments VERIFIED PT 14.1 H INR 1.2 H Anion Gap 15 Estim Creat Clear Calc 19.2 Estimated GFR 18 Fasting Glucose 108 H Lactic Acid Calcium 11.9 H Magnesium 2.1 Total Bilirubin 0.3 AST 47 H ALT 31 Alkaline Phosphatase 68 Ammonia 37 Troponin I High Sens 11.3 B-Natriuretic Peptide Total Protein 5.7 L Albumin 2.7 L Urine Color Dark Yellow Urine Appearance Cloudy Urine pH 5.5 Ur Specific [place] 1.015 Urine Protein 300 (3+) H Urine Glucose (UA) Negative Urine Ketones Negative Urine Blood Large (3+) H Urine Nitrite Negative Ur Leukocyte Esterase Large (3+) H Urine RBC >20 H Urine WBC 11-20 Ur Squamous Epith Cells 0-2 Urine Bacteria 1+ Hyaline Casts 0-2 Influenza Type A (PCR) NEGATIVE Influenza Type B (PCR) NEGATIVE RSV RNA Qual (PCR) NEGATIVE SARS-CoV-2 RNA (RT-PCR) NEGATIVE 09/16/24 11:52 MCV MCH MCHC RDW Plt Count MPV Immature Gran % (Auto) Neut % (Auto) Lymph % (Auto) [place] % (Auto) Eos % (Auto) Baso % (Auto) Lymph # (Auto) [place] # (Auto) Eos # (Auto) Baso # (Auto) Abs Immat Gran (auto) Absolute Neuts (auto) Absolute Nucleated RBC Nucleated RBC % (auto) Smear Tech's Comments PT INR Anion Gap Estim Creat Clear Calc Estimated GFR Fasting Glucose Lactic Acid 1.6 Calcium Magnesium Total Bilirubin AST ALT Alkaline Phosphatase Ammonia Troponin I High Sens 12.4 B-Natriuretic Peptide 60 Total Protein Albumin Urine Color Urine Appearance Urine pH Ur Specific [place] Urine Protein Urine Glucose (UA) Urine Ketones Urine Blood Urine Nitrite Ur Leukocyte Esterase Urine RBC Urine WBC Ur Squamous Epith Cells Urine Bacteria Hyaline Casts Influenza Type A (PCR) Influenza Type B (PCR) RSV RNA Qual (PCR) SARS-CoV-2 RNA (RT-PCR) Imaging Radiologist's Impressions: Impressions Chest X-Ray 09/16/24 10:11 IMPRESSION: Stable right lower lobe pulmonary nodule. No focal airspace opacity is identified. Electronically signed by: Jean Solis MD 09/16/2024 10:42 AM EDT Venous Duplex 09/16/24 10:55 IMPRESSION: No evidence of deep venous thrombosis involving the right lower extremity. Electronically signed by: Avi Luz MD 09/16/2024 11:[address] 09/16/24 12:38 IMPRESSION: Atrophy and findings consistent with small vessel ischemic disease of the white matter. No mass effect or midline shift to suggest metastatic disease. However evaluation is limited on an unenhanced head CT. If there remains clinical concern for metastatic disease, MRI with contrast is recommended. Electronically signed by: Jean Solis MD 09/16/2024 01:21 PM EDT RP Assessment and Plan (1) Anemia: Qualifiers: Anemia type: unspecified type Qualified Code(s): D64.9 - Anemia, unspecified Status: Acute Plan 79 year old man admitted with sepsis secondary to UTI Sepsis secondary to UTI Tachycardia, tachypnea and leukocytosis, normal lactic acid IV Rocephin follow final cx Acute encephalopathy poor po intake, dehydration, UTI treat as above MARYSE Likely secondary to poor oral intake/hypovolemia Continue IV fluids, albumin Nephrology consultation Normocytic anemia, non blood loss No acute bleeding H&H 9.4/27.8 iron 22 H/H stable Supratherapeutic INR Likely secondary to chronic liver cirrhosis sign no acute bleeding Dysphagia GI consultation Modified barium swallow full liquid diet for now Unspecified lung CA with metastasis Pathology report still pending Oncology consultation Hypercalcemia Secondary to malignancy On a Decadron taper from previous admission as per Nephrology Hypertension mildly elevated continue amlodipine Mental health continue home medication Constipation Resume home MiraLax History of DVT No longer on Eliquis DVT prophylaxis -stop heparin for hematuria; mechanical devices ordered Full code Quality Stroke Does the patient have a stroke diagnosis?: No VTE Prior VTE?: No VTE Risk Level:: Medical - moderate - high VTE Device Contraindication: N/A - Device Ordered VTE Drug Contraindication: N/A - Med Ordered
[2024-09-16 17:02] VITALS: BMI 28.5
[2024-09-16 17:42] VITALS: BP 141/71; PULSE 108; RESP 14; TEMP 36.6; O2SAT 97
[2024-09-16] MEDS: Albumin Human 25 % 100 ML IV (18:36)
[2024-09-16 19:53] VITALS: BP 139/73; PULSE 102; RESP 16; TEMP 36.9; O2SAT 98
[2024-09-16] MEDS: Dextrose 5 % and 0.9 % NaCl 1,000 ML 100 ML IVCONT (20:42)
[2024-09-16] MEDS: 0.9 % Sodium Chloride Flush 3 ML SYRINGE IVFLUSH (20:43)
[2024-09-16] MEDS: traZODone HCL 50 MG TABLET PO (21:54)
[2024-09-16] MEDS: Metoprolol Tartrate 12.5 MG HALFTAB PO (21:54)
[2024-09-17] MEDS: Albumin Human 25 % 100 ML IV ×4 (00:24→21:14)
[2024-09-17 03:35] VITALS: BP 122/59; PULSE 96; RESP 16; TEMP 36.2; O2SAT 95
[2024-09-17 06:42] LABS: Hematocrit 24.9 % (42.0-52.0); Hemoglobin 8.4 g/dl (14.0-18.0); Mean Corpuscular HGB Conc 33.7 g/dl (31.0-36.0); Mean Corpuscular Hemoglobin 28.8 pg (27.0-33.0); Mean Corpuscular Volume 85.3 fL (80.0-98.0); Mean Platelet Volume 8.3 fL (9.4-12.4); Platelet Count 217 X10*3/uL (160-400); Red Blood Count 2.92 X10*6/uL (4.60-5.80); Red Cell Distribution Width 16.1 % (11.0-16.0); White Blood Count 9.8 X10*3/uL (4.8-10.8)
[2024-09-17 07:00] LABS: Magnesium 2.2 mg/dL (1.6-2.6)
[2024-09-17 07:35] VITALS: BP 124/61; PULSE 98; RESP 18; TEMP 36.5; O2SAT 97
[2024-09-17 07:49] LABS: Anion Gap 16 (12-20); Blood Urea Nitrogen 89 mg/dL (9-16); Calcium 10.8 mg/dL (8.4-10.2); Carbon Dioxide 17 mmol/L (22-29); Chloride 105 mmol/L (96-108); Creatinine Clr Calc Pharmacy 16.9; Estimated Glomerular Filt Rate 15; Glucose Random 86 mg/dL (60-115); Potassium 5.2 mmol/L (3.3-5.1); Sodium 133 mmol/L (135-145)
[2024-09-17] MEDS: dexAMETHasone 2 MG TABLET 3 MG PO (08:34)
[2024-09-17] MEDS: Metoprolol Tartrate 12.5 MG HALFTAB PO ×2 (08:34→21:15)
[2024-09-17] MEDS: polyethylene glycoL 3350 17 GM POWD.PACK PO (08:34)
[2024-09-17] MEDS: amLODIPine Besylate 5 MG TABLET PO (08:34)
--- NOTE | 2024-09-17 08:59 | MHC.SLORD ---
Addendum entered and electronically signed by BROOKLYN Riggins 09/17/24 09:49: SPINNING AND WINDING SUPERVISOR checked in w/ pt to prepare pt on what to expect w/ MBSS today. SPINNING AND WINDING SUPERVISOR has no concerns w/ pt's ability to participate in exam this morning. Original Note: Speech Language Pathology Order Status: MBSS is scheduled for 10:30am this a.m. Attending OUTSIDE [employer]OR [employer]ES notified via [employer] Message.
[2024-09-17 09:19] LABS: Anion Gap 15 (12-20); Blood Urea Nitrogen 87 mg/dL (9-16); Calcium 10.5 mg/dL (8.4-10.2); Carbon Dioxide 15 mmol/L (22-29); Chloride 108 mmol/L (96-108); Estimated Glomerular Filt Rate 15; Glucose Random 96 mg/dL (60-115); Potassium 4.9 mmol/L (3.3-5.1); Sodium 133 mmol/L (135-145)
--- NOTE | 2024-09-17 09:41 | HO.PM.IMPN ---
Subjective Subjective Date of Service: 09/17/24 Review of Systems Review of Systems: Yes all other systems are reviewed and are negative Constitutional Constitutional: Denies chills, Denies fever(s) and Denies headache(s) ENT Ears, Nose, Mouth, and Throat: Denies headache(s) Cardiovascular Cardiovascular: Denies chest pain, Reports rapid heart rate, Reports pedal edema, Reports leg edema, Denies palpitations and Denies dyspnea Respiratory Respiratory: Denies cough and Denies dyspnea Gastrointestinal Gastrointestinal: Denies abdominal pain Genitourinary Genitourinary: Reports hematuria Neurologic Neurologic: Denies headache(s) Endocrine Endocrine: Denies palpitations Physical Exam Vital Signs: Vital Signs: Last Vital Signs Temp 97.7 F 09/17/24 07:35 Pulse 98 09/17/24 07:35 Resp 18 09/17/24 07:35 BP 124/61 09/17/24 07:35 Pulse Ox 97 09/17/24 07:35 O2 Del Method Room Air 09/17/24 07:35 BMI result Body Mass Index 28.5 Objective Data Active Medications Acetaminophen (Acetaminophen 325 Mg Tablet) 650 mg PO Q6H PRN PRN Reason: Pain, Mild 1-3,fever,headache Amlodipine Besylate (Amlodipine Besylate 5 Mg Tablet) 5 mg PO DAILY [facility]; Protocol Last Admin: 09/17/24 08:34 Dose: 5 mg Documented By: TONY Bisacodyl (Bisacodyl 10 Mg Supp.Rect) 10 mg OK DAILY PRN PRN Reason: Constipation Calcium Carbonate (Calcium Carbonate 750 Mg Tab.Chew) 750 mg PO Q4H PRN PRN Reason: Heartburn Dexamethasone (Dexamethasone 2 Mg Tablet) 3 mg PO DAILY [facility] Stop: 09/23/24 09:01 Last Admin: 09/17/24 08:34 Dose: 3 mg Documented By: TONY Dextrose/Sodium Chloride (D5ns) 1,000 mls @ 100 mls/hr IVCONT .Q10H [facility] Last Admin: 09/17/24 05:19 Dose: Not Given Documented By: CLAUDINE Non-Admin Reason: IV Running Albumin Human (Kedbumin 25 %) 100 mls @ 100 mls/hr IV Q6H [facility] Stop: 09/18/24 04:44 Magnesium Hydroxide (Milk Of Magnesia 30 Ml Oral.Susp) 30 ml PO DAILY PRN PRN Reason: Constipation Melatonin (Melatonin 3 Mg Tablet) 6 mg PO BEDTIME PRN PRN Reason: Insomnia Metoprolol Tartrate (Metoprolol Tartrate 12.5 Mg Halftab) 12.5 mg PO BID [facility]; Protocol Last Admin: 09/17/24 08:34 Dose: 12.5 mg Documented By: TONY Ondansetron HCl (Ondansetron Hcl 4 Mg/2 Ml Vial) 4 mg IVPUSH Q8H PRN PRN Reason: Nausea and Vomiting Polyethylene Glycol (Polyethylene Glycol 3350 17 Gm Powd.Pack) 17 gm PO DAILY [facility] Last Admin: 09/17/24 08:34 Dose: 17 gm Documented By: TONY Sodium Chloride (0.9 % Sodium Chloride Flush 3 Ml Syringe) 3 ml IVFLUSH QSHIFT [facility] Last Admin: 09/17/24 08:40 Dose: Not Given Documented By: TONY Non-Admin Reason: IV Running Trazodone HCl (Trazodone Hcl 50 Mg Tablet) 50 mg PO BEDTIME [facility] Last Admin: 09/16/24 21:54 Dose: 50 mg Documented By: CLAUDINE Labs 09/17/24 05:49 09/17/24 08:33 Labs: Laboratory Results - last 24 hr 09/16/24 09/16/24 09/16/24 10:19 10:58 11:35 MCV 84.2 MCH 28.5 MCHC 33.8 RDW 15.9 Plt Count 227 MPV 8.0 L Immature Gran % (Auto) 0.6 H Neut % (Auto) 92.7 H Lymph % (Auto) 2.5 L [place] % (Auto) 3.9 Eos % (Auto) 0.2 Baso % (Auto) 0.1 Lymph # (Auto) 0.3 L [place] # (Auto) 0.5 Eos # (Auto) 0.0 Baso # (Auto) 0.0 Abs Immat Gran (auto) 0.08 H Absolute Neuts (auto) 12.0 H Absolute Nucleated RBC 0.000 Nucleated RBC % (auto) 0.0 Smear Tech's Comments VERIFIED PT 14.1 H INR 1.2 H Anion Gap 15 Estim Creat Clear Calc 19.2 Estimated GFR 18 Random Glucose Fasting Glucose 108 H Lactic Acid Calcium 11.9 H Magnesium 2.1 Total Bilirubin 0.3 AST 47 H ALT 31 Alkaline Phosphatase 68 Ammonia 37 Troponin I High Sens 11.3 B-Natriuretic Peptide Total Protein 5.7 L Albumin 2.7 L Urine Color Dark Yellow Urine Appearance Cloudy Urine pH 5.5 Ur Specific [place] 1.015 Urine Protein 300 (3+) H Urine Glucose (UA) Negative Urine Ketones Negative Urine Blood Large (3+) H Urine Nitrite Negative Ur Leukocyte Esterase Large (3+) H Urine RBC >20 H Urine WBC 11-20 Ur Squamous Epith Cells 0-2 Urine Bacteria 1+ Hyaline Casts 0-2 Influenza Type A (PCR) NEGATIVE Influenza Type B (PCR) NEGATIVE RSV RNA Qual (PCR) NEGATIVE SARS-CoV-2 RNA (RT-PCR) NEGATIVE 09/16/24 09/17/24 09/17/24 11:52 05:49 08:33 MCV 85.3 MCH 28.8 MCHC 33.7 RDW 16.1 H Plt Count 217 MPV 8.3 L Immature Gran % (Auto) Neut % (Auto) Lymph % (Auto) [place] % (Auto) Eos % (Auto) Baso % (Auto) Lymph # (Auto) [place] # (Auto) Eos # (Auto) Baso # (Auto) Abs Immat Gran (auto) Absolute Neuts (auto) Absolute Nucleated RBC 0.000 Nucleated RBC % (auto) 0.0 Smear Tech's Comments PT INR Anion Gap 16 15 Estim Creat Clear Calc 16.9 17.0 Estimated GFR 15 15 Random Glucose 86 96 Fasting Glucose Lactic Acid 1.6 Calcium 10.8 H D 10.5 H Magnesium 2.2 Total Bilirubin AST ALT Alkaline Phosphatase Ammonia Troponin I High Sens 12.4 B-Natriuretic Peptide 60 Total Protein Albumin Urine Color Urine Appearance Urine pH Ur Specific [place] Urine Protein Urine Glucose (UA) Urine Ketones Urine Blood Urine Nitrite Ur Leukocyte Esterase Urine RBC Urine WBC Ur Squamous Epith Cells Urine Bacteria Hyaline Casts Influenza Type A (PCR) Influenza Type B (PCR) RSV RNA Qual (PCR) SARS-CoV-2 RNA (RT-PCR) Microbiology Microbiology Results: Microbiology 09/16/24 Unknown Urine Culture - Preliminary Urine Catheterized - Morales Catheter Gram negative lesly Assessment and Plan (1) Acute kidney injury superimposed on CKD: Status: Acute Plan 79 year old man admitted with sepsis secondary to UTI MARYSE creat 3.78 Likely secondary to poor oral intake/hypovolemia Continue IV fluids, albumin Nephrology consultation> renal us, albumin x4 Sepsis secondary to GNR UTI. Sepsis resolved Tachycardia, tachypnea and leukocytosis, normal lactic acid continue IV Rocephin follow final cx Acute encephalopathy. Resolved poor po intake, dehydration, UTI treat as above Normocytic anemia, non blood loss No acute bleeding H&H 8.4/24.9 iron 22 H/H stable Supratherapeutic INR Likely secondary to chronic liver cirrhosis sign no acute bleeding Dysphagia GI consultation Modified barium swallow today full liquid diet for now Unspecified lung CA with metastasis Pathology report still pending Oncology Following Hypercalcemia Secondary to malignancy On a Decadron taper from previous admission as per Nephrology LE edema right<left Proteinurea, low albumin neg for dvt Teds and albumin Hypertension mildly elevated continue amlodipine Mental health continue home medication Constipation Resume home MiraLax History of DVT No longer on Eliquis DVT prophylaxis heparin Full code Quality Stroke Does the patient have a stroke diagnosis?: No VTE Prior VTE?: No VTE Risk Level:: Medical - moderate - high VTE Device Contraindication: N/A - Device Ordered VTE Drug Contraindication: N/A - Med Ordered
[2024-09-17] MEDS: Dextrose 5 % and 0.9 % NaCl 1,000 ML 100 ML IVCONT (10:11)
[2024-09-17] MEDS: Heparin Sodium,Porcine 5,000 UNIT/ML VIAL 5000 UNIT SUBCUT ×2 (11:35→21:14)
[2024-09-17] MEDS: cefTRIAXone sodium 1 GM VIAL IVPUSH (12:44)
--- NOTE | 2024-09-17 14:21 | MHC.CM.PN ---
Addendum entered by Alejandrina Lima RN 09/17/24 15:42: Bed offer accepted @ [facility] pending PT eval & auth. Original Note: Met with patient, , and daughter at bedside. Patient lives at home w/ . Previously independent. Recent [facility] admission and was dc'd to [facility] on 09/10. Now reports he is a 2 assist, ambulating w/ a walker. HCP on file and verified. PCP Cade Enriquez MD DP: Goal is complete STR via BLS then return home w/ . Patient/family do not want return to [facility]. No other facility preference. Plan to place local referrals and review bed offers w/ patient and family. Will need PT eval. CM will continue to follow.
--- NOTE | 2024-09-17 15:06 | MHC.SL.IMP ---
Date of Plan of Treatment: 09/17/24 Onset of Symptoms/Illness: 07/18/24 Date Treatment Started: 09/17/24 Admitting Diagnosis: Sepsis 2nd to UTI Primary Speech & Language Diagnosis: R13.12 Oropharyngeal Phase Dysphagia Reason for Today's Visit: 57430 Modified Barium Swallow Study Pre-evaluation Dietary Consistencies: Full Liquid Diet Pre-evaluation Liquid Consistency: Thin Pre-evaluation Medication Administration: Medical History: Modified Barium Swallow Study Fluoroscopic Evaluation of Swallowing Function CPT Code 37447 Evaluation Year: 2024 Reason for Study: Patient c/o difficulty swallowing Referring Physician: Kimberlee Pena NP Evaluating Clinician: Michelle Cho MA, CCC-HOTEL HOUSEMAN Study Number: 1 Patient Name: Charles Lucero Status: Inpatient, Wheelchair Age: 79 Sex: Male Medical History Medical History Urinary retention Rene hematuria Acute urinary retention Radiation cystitis Hypertension Diverticulosis Overweight (BMI 25.0-29.9) History of prostate cancer Renal cyst Vitamin D deficiency Osteoarthritis of left knee Impaired fasting glucose Pure hypercholesterolemia Benign essential hypertension Surgical History Hx of right inguinal hernia repair (02/16/23) History of ankle surgery History of colonoscopy History of meniscectomy of left knee (~06/05/12) Hx of prostatectomy Hx of umbilical hernia repair Current (pre-evaluation) Intake/Diet: Route: PO Diet Grade: Full Liquid Diet Pain: None reported at time of study SUBJECTIVE: Patient is an 79 year old male brought to the ED on 09/[address] [facility] with complaints of increased generalized fatigue, weakness, decreased PO intake, and confusion. Patient w/ MARYSE likely secondary to poor oral intake/hypovolemia, admitted with sepsis in the setting of acute UTI. Patient?s medical history is significant for diverticulosis and prostate CA s/p radiation and prostatectomy. 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 Patient?s CXR 09/16 showed, ?Stable right lower lobe pulmonary nodule. No focal airspace opacity is identified.? He also had a Head CT 09/16 showing, ?Atrophy and findings consistent with small vessel ischemic disease of the white matter. No mass effect or midline shift to suggest metastatic disease. However evaluation is limited on an unenhanced head CT.? He was recommended MRI with contrast if concerns remain for metastatic disease. Patient reports having difficulty swallowing solids, due to food sticking in his throat. When asked to localize globus, patient pointed to his thyroid cartilage. He says he feels this same sensation when drinking liquids too quickly and will feel it ?go down slowly.? This occasionally makes him cough and vomit. He reports onset of difficulties a few months ago, which have progressively worsened over time. Patient was seen by HOTEL HOUSEMAN at bedside during recent prior hospitalization on 09/04/24. He tolerated a regular texture diet at the time and was recommended by GI to have MBSS as outpatient. Patient returns to the hospital with similar complaints, therefore was referred for further instrumental evaluation of pharyngoesophageal dysphagia. Oral Motor Exam Facial Symmetry: Symmetrical Mouth Occlusion: Normal Oral-Facial Teeth Characteristics: Intact/Normal Oral-Facial Teeth Miscellaneous Observation: Adequate natural dentition for mastication Oral-Facial Lip Pucker Description: Normal Oral-Facial Smile (Lips) Description: Normal Oral-Facial Puff Cheeks Description: Normal Tongue Size: Normal Tongue Excursion Description: Normal Tongue Range of Movement Description: Normal Tongue Speed of Movement Description: Normal Tongue Strength of Movement (against opposing pressure): Normal Tongue Movement Characteristics: Normal/Absent Is patient able to manage secretions?: Yes Is patient able to produce volitional cough?: Yes Food and Liquid Trials: Oral Impairment: Lip Closure: 1=Interlabial escape; no progression to anterior tip Oral Impairment: Tongue Control During Bolus Hold: 1=Escape to lateral buccal cavity/floor of mouth (FOM) Oral Impairment: Bolus Preparation/Mastication: 1=Slow prolonged chewing/mashing with complete re-collection Oral Impairment: Bolus Transport/Lingual Motion: 3=Repetitive/disorganized tongue motion Oral Impairment: Oral Residue: 2=Residue collection on oral structures Oral Impairment:Initiation of Pharyngeal Swallow: 1=Bolus head in valleculae Pharyngeal Impairment: Soft Palate Elevation: 0=No bolus between soft palate (SP)/pharyngeal wall (PW) Pharyngeal Impairment: Laryngeal Elevation: 0=Complete superior movement of thyroid cartilage (see description) Pharyngeal Impairment: Anterior Hyoid Excursion: 1=Partial anterior movement Pharyngeal Impairment: Epiglottic Movement: 1=Partial inversion Pharyngeal Impairment: Laryngeal Vestibular Closure:: 1=Incomplete: narrow column air/contrast in laryngeal vestibule Pharyngeal Impairment: Pharyngeal Stripping Wave: 0=Present: complete Pharyngeal Impairment: Pharyngeal Contraction: Did not test Pharyngeal Impairment: Pharyngoesophageal Segment Openin=Partial distention/partial duration: partial obstruction of flow Pharyngeal Impairment: Tongue Base (TB) Retraction: 2=Narrow column of contrast/air between TB and posterior PW Pharyngeal Impairment: Pharyngeal Residue: 2=Collection of residue within or on pharyngeal structures Pharyngeal Impairment: Esophageal Clearance Upright Position: Did not test Impressions and Recommendations Clinical Observations OBJECTIVE: Time-out: performed at 10:50 Evaluation Start: 10:30; Stop: 10:40 Patient Positioning: Standing Viewing Planes: LATERAL ONLY Contrast: MBSImP? Standardized Protocol using commercially prepared, standardized Barium viscosities, including: Varibar? THIN LIQUID (40% w/v, <15 cps) , Varibar? PUDDING (40% w/v, <4222-4488 cps) , 1/2 Shortbread Cookie (1 x1 x.25 ) MBSImP ID: [id number] MBSImP Results: Lip closure for intraoral bolus containment resulted in interlabial escape, without progression to the anterior lip. Tongue control during bolus hold allowed bolus escape to the lateral buccal cavity/floor of mouth. Bolus preparation and mastication resulted in slow, prolonged chewing/mashing but with complete re-collection. Bolus transport/lingual motion was with repetitive/disorganized motion of the tongue. Oral residue was a collection on oral structures. Initiation of the pharyngeal swallow occurred when the bolus head was in the valleculae. Soft palate elevation resulted in no bolus between the soft palate and the pharyngeal wall. Laryngeal elevation demonstrated complete superior movement of the thyroid cartilage with complete approximation of the arytenoids to the epiglottic petiole. Anterior hyoid excursion demonstrated partial anterior movement. Epiglottic movement resulted in partial inversion. Laryngeal vestibular closure was incomplete, with a narrow column of air/contrast noted within the laryngeal vestibule at the height of the swallow. Pharyngeal stripping wave was present and complete. Pharyngeal contraction could not be determined due to logistical reasons not related to physiologic impairment. Pharyngoesophageal segment opening demonstrated partial distension/partial duration, with partial obstruction of bolus flow. Tongue base retraction allowed a narrow column of contrast or air between the retracted tongue base and the posterior pharyngeal wall. Pharyngeal residue was a collection of residue within or on pharyngeal structures. Esophageal clearance in the upright position could not be assessed due to logistical reasons not related to physiologic impairment. Oral Impairment Score: 8 Pharyngeal Impairment Score: 8 (absence of score, component 13) Esophageal Impairment Score: --- (absence of score, component 17) Laryngeal Penetration and Aspiration: Neither penetration nor aspiration was observed in today's study with Cookie. Penetration was observed in today's study. Pudding-thick, Thin Contrast entered the airway, remained above the vocal folds, and were ejected from the airway. ASSESSMENT: This exam was performed by the radiologist and the speech pathologist. Patient was sitting in a wheelchair for lateral view only. He fed himself without difficulty and trialed the following consistencies: thin (via individual cup sips) puree (mixture applesauce with barium paste) regular solid ([place] cookie coated in barium paste) There was trace contrast escaping into the interlabial space, but no significant spillage beyond the josep border. Some liquid also escaped to the floor of mouth as well, but no posterior escape seen beyond the tongue base. Mastication was moderately slowed and prolonged. Posterior lingual movement was significantly slowed, at times with brief periods of tongue rocking movement and/or oral holding. Mild to moderate residue remained on the tongue after the initial swallow. Patient swallowed 2-3 times in order to clear the oral cavity. Pharyngeal swallow trigger initiated as the bolus head reached the valleculae. No evidence of nasopharyngeal reflux. Complete laryngeal elevation, however, epiglottic inversion was incomplete with partial laryngeal vestibular closure, contributing to partially open airway. There was trace penetration above the vocal folds intermittently with trials of thin liquid. One episode of flash penetration seen with puree which had mixed with thin liquid that pooled in the valleculae. No evidence of aspiration during this exam. There was moderate retention of contrast in the valleculae and pyriform sinuses, increased on trials of regular solids. Patient was able to reduce residuals with dry swallows, residue from solid was reduced with liquid wash. Note partial pharyngoesophgeal segment opening. The following compensatory strategies have not been used until today's study, but when employed, improved swallowing function: Liquid Wash decreased Oral Residue, Pharyngeal Residue Additional Swallow(s) per Bolus decreased Oral Residue, Pharyngeal Residue Liquid Intake Recommendation: Thin Liquid Intake Strategies: Small Sips, No Straws, Double Swallow Dietary Recommendations: Chopped/Advanced (NDD3) Medication Administration: Whole with Puree Please contact the pharmacy regarding appropriate crushable or liquid drug formulations that are available whenever modified delivery is recommended. Compensatory Strategies Recommended: Sitting Upright (90 deg), Double Swallow, No Straw, Small Bites and Sips, Alternate Liquids/Solids, Rate of Ingestion Change, Avoid Specific Foods Supervision during eating and or drinking: Direct Supervision (1:1) Recommended Treatments: Compens. Strategy Educat. Recommendation for Speech Therapy: Inpatient Speech Therapy Speech Therapy through Rehab Facility Text Comment: Intake Recommendations: Route: PO Diet Grade: Chopped/ Advanced (NDD3) Liquid Consistencies: Thin Post-Study Functional Oral Intake Scale (FOIS): 5- Total oral intake of multiple consistencies requiring special preparation Patient presents with moderate oropharyngeal dysphagia, characterized by markedly slowed and delayed oral phase. Mastication was slowed and prolonged, slowed posterior lingual movement, with brief periods of repetitive tongue rocking motion or holding of bolus in the oral cavity. Patient swallowed 2-3 times on each bite/sip in order to clear the bolus. Pharyngeal swallow trigger was timely, however, with compromised airway protection due to partial epiglottic inversion and incomplete laryngeal vestibular closure. There was trace penetration seen intermittently with thin liquid and mixed media (puree with liquid). No evidence of aspiration during this exam. Moderate retention seen in the valleculae and pyriform sinuses, especially on trials of harder solids. Patient was able to reduce residue with liquid wash and dry swallows. Partial pharyngoesophgeal segment opening likely contributed to pharyngeal retention. Suggested Referrals: The patient might benefit from a referral to: Gastroenterology Indication for Referral: Partial distention through the pharyngoesophageal segment (PES) opening Therapy Recommendations: Recommend start on a CHOPPED/ADVANCED (NDD3) diet with THIN liquids, pills WHOLE in PUREE. Patient is recommended standard aspiration precautions and strategies to promote oral and pharyngeal clearance: -take one sip at a time -AVOID straws -AVOID chain sipping -take one bite at a time -moisten foods with thick sauces/gravies -chew food well -alternate with sips of liquid -1-2 dry swallows after each bite/sip -AVOID mixed consistencies, overly dry or tough foods -maintain upright 90 degree position during PO intake and for at least 30 minutes afterwards HOTEL HOUSEMAN will follow daily M-F while patient is admitted as inpatient to monitor tolerance of PO, provide patient education and strategy training. Patient will likely need continued speech therapy after discharge. The following compensatory strategies and/or therapeutic exercises will be part of the upcoming therapy/management plan: Liquid Wash Additional Swallow(s) per Bolus Nuclear Medicine Tech Goals: ? The patient will tolerate the least restrictive diet with a safe/efficient swallow to maintain adequate nutrition and hydration. ? The patient and/or family will participate in further education for swallowing goals. Short Term Goals: ? Diet - The patient will tolerate a modified dysphagia diet with thin liquids without signs or symptoms of penetration/aspiration 100% of the time. - The patient will participate in therapeutic PO trials with the HOTEL HOUSEMAN. ? Guidelines - The patient will comply with/recall the following guidelines/strategies 100% of the time with minimal cuing: Bolus Volume Change, Rate of Ingestion Change, Liquid Wash, Additional Swallow(s) per Bolus. ? Education - The patient, caregiver, nurse will verbalize/demonstrate understanding of the results of this evaluation, the above recommendations, and the swallowing guidelines. Frequency/Duration: Daily M-F Date Range for Service Requested: Timeline to reassess: PRN Clinician - Supplemental, Miscellaneous Communication: It is important to note MBSS objective studies are snapshots in time and Patient function might vary with factors such as time of day or concomitant medical conditions. For this reason, the final treatment plan for this patient should rest with their medical care team. Additional recommendations should be considered with the totality of the Patient in mind. Thank for the opportunity to participate in the care of this patient. If you have any questions about the content of this report, please contact the [facility] at [facility]. Education: Education regarding findings from today's study and plans for therapy were provided to Patient only through Verbal Instruction. Understanding was expressed by the Patient only. Freedom Of Information Officer Clinician/Clinical Fellow: No Supervisory Statement: N/A Speech Language Pathologist: Michelle Cho M.A., [facility]
--- NOTE | 2024-09-17 15:13 | MHC.SPEECHCO ---
MBSS completed this a.m., revealed moderate oropharyngeal dysphagia w/ very slow oral phase and compromised airway protection. Trace penetration seen intermittently with thin liquid and mixed media (puree with liquid). No evidence of aspiration. Moderate pharyngeal retention partially cleared with strategies. Once cleared to advance from Full Liquids, recc start on CHOPPED/ADVANCED (NDD3) solids and THIN liquids, pills WHOLE in PUREE, w/ strategies to promote clearance: dry swallow after each bite/sip, alternate solids/liquids, no straws. Notified PILE DRIVING SETTER, RN, & RD via [place] Message.
[2024-09-17 15:25] VITALS: BP 125/64; PULSE 98; RESP 16; TEMP 36.3; O2SAT 98
--- NOTE | 2024-09-17 17:02 | P.CDIM_ITS ---
PROVIDER RESPONSE TEXT: To clarify, the appropriate diagnosis supported by the clinical indicators: Other (explain): Unknown at this time QUERY TEXT: PHYSICIAN'S DOCUMENTATION REQUEST Date of Query: 09/17/2024 10:14 AM EDT Patient Name: Charles Lucero Admit Date: 09/16/2024 Dear Kimberlee Pena SPRAY GUNNER, A review of the medical record indicates additional documentation may be needed. Please review below and update the documentation accordingly. Documentation includes the conditions of UTI and indwelling Morales catheter. Clinical Indicators: GNR UTI IV Rocephin final culture pending Please clarify the relationship between these conditions: Yes, UTI is related to / associated with / due to indwelling Morales catheter No, UTI is not related to / associated with / due to indwelling Morales catheter Other (explain) Clinically unable to determine (explain) Thank you, Yani Benavides RN Use of terms such as suspected, likely, concern for, or probable (associated with a specific diagnosi s that is being evaluated, monitored, or treated as if it exists) are acceptable and can be coded in the inpatient se tting, when documented at the time of discharge. Please use your independent medical judgment in providing your response. THIS QUERY IS PART OF THE PERMANENT MEDICAL RECORD
--- NOTE | 2024-09-17 18:37 | P.CONNP_ITS ---
History of Present Illness Reason for Consult Consult date: 09/17/24 Reason for consult: MARYSE Chief Complaint Chief complaint: UTI maryse History of Present Illness Narrative: 79-year-old man with CKD [address] [facility] with increased fatigue, weakness, decreased oral intake and confusion. He also had right lower extremity edema and exertional dyspnea. 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 He is noted to have chronic anemia, creatinine 3.34 up from 1.70 on 09/10/2024, calcium 11.9. He was noted to be tachycardic and tachypneic with no fever. He received a dose of Rocephin and 2 L of IV fluids in the ER. He was admitted for further management and nephrology consult has been consulted to assist in his clinical care during his current hospital stay Review of Systems Review of Systems Yes all other systems are reviewed and are negative PMFSH Past Medical History Medical History Urinary retention Rene hematuria Acute urinary retention Radiation cystitis Hypertension Diverticulosis Overweight (BMI 25.0-29.9) History of prostate cancer Renal cyst Vitamin D deficiency Osteoarthritis of left knee Impaired fasting glucose Pure hypercholesterolemia Benign essential hypertension Family History Family History Father Cancer Mother Colon cancer Surgical History Surgical History Hx of right inguinal hernia repair (02/16/23) History of ankle surgery History of colonoscopy History of meniscectomy of left knee (~06/05/12) Hx of prostatectomy Hx of umbilical hernia repair Social History Social History Household Members: Spouse Housing: House Are you a primary childcare worker to a significant other at home: No Do you presently have visiting nurse or other home services: No Alcohol intake: current Alcohol intake frequency: 0-2 drinks per day Alcohol type: beer Comment: . 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 Cognitive needs: No Hearing needs: No Vision needs: Yes (Glasses) Meds Allergies Allergy/AdvReac Type Severity Reaction Status Date / Time No Known Allergies Allergy Verified 09/16/24 09:45 Active Medications: Current Medications Acetaminophen (Acetaminophen 325 Mg Tablet) 650 mg PO Q6H PRN PRN Reason: Pain, Mild 1-3,fever,headache Amlodipine Besylate (Amlodipine Besylate 5 Mg Tablet) 5 mg PO DAILY [facility]; Protocol Last Admin: 09/17/24 08:34 Dose: 5 mg Bisacodyl (Bisacodyl 10 Mg Supp.Rect) 10 mg [place] DAILY PRN PRN Reason: Constipation Ceftriaxone Sodium (Ceftriaxone Sodium 1 Gm Vial) 1 gm IVPUSH Q24H [facility] Last Admin: 09/17/24 12:44 Dose: 1 gm Dexamethasone (Dexamethasone 2 Mg Tablet) 3 mg PO DAILY [facility] Stop: 09/23/24 09:01 Last Admin: 09/17/24 08:34 Dose: 3 mg Dexamethasone (Dexamethasone 2 Mg Tablet) 2 mg PO DAILY [facility] Stop: 10/01/24 08:59 Heparin Sodium (Porcine) (Heparin Sodium,Porcine 5,000 Unit/Ml Vial) 5,000 unit SUBCUT Q12H [facility] Last Admin: 09/17/24 11:35 Dose: 5,000 unit Dextrose/Sodium Chloride (D5ns) 1,000 mls @ 100 mls/hr IVCONT .Q10H [facility] Last Admin: 09/17/24 15:38 Dose: Not Given Albumin Human (Kedbumin 25 %) 100 mls @ 100 mls/hr IV Q6H [facility] Stop: 09/18/24 04:59 Last Infusion: 09/17/24 16:16 Dose: Infused Magnesium Hydroxide (Milk Of Magnesia 30 Ml Oral.Susp) 30 ml PO DAILY PRN PRN Reason: Constipation Melatonin (Melatonin 3 Mg Tablet) 6 mg PO BEDTIME PRN PRN Reason: Insomnia Metoprolol Tartrate (Metoprolol Tartrate 12.5 Mg Halftab) 12.5 mg PO BID [facility]; Protocol Last Admin: 09/17/24 08:34 Dose: 12.5 mg Ondansetron HCl (Ondansetron Hcl 4 Mg/2 Ml Vial) 4 mg IVPUSH Q8H PRN PRN Reason: Nausea and Vomiting Polyethylene Glycol (Polyethylene Glycol 3350 17 Gm Powd.Pack) 17 gm PO DAILY [facility] Last Admin: 09/17/24 08:34 Dose: 17 gm Sodium Chloride (0.9 % Sodium Chloride Flush 3 Ml Syringe) 3 ml IVFLUSH QSHIFT [facility] Last Admin: 09/17/24 16:07 Dose: Not Given Trazodone HCl (Trazodone Hcl 50 Mg Tablet) 50 mg PO BEDTIME [facility] Last Admin: 09/16/24 21:54 Dose: 50 mg Home Medications ?Medication ?Instructions ?Recorded ?Confirmed ?Last Taken ?Type acetaminophen 325 mg tablet 650 mg PO Q4H PRN Mild Pain (Scale 09/16/24 09/16/24 Unknown History Score 1-4) acetaminophen 325 mg tablet 650 mg PO Q6H PRN Fever 09/16/24 09/16/24 Unknown History bisacodyl 10 mg rectal suppository 10 mg FL DAILY PRN Constipation 09/16/24 09/16/24 Unknown History dexamethasone 1 mg tablet See Taper PO DAILY 09/16/24 09/16/24 Unknown History magnesium hydroxide 400 mg/5 mL 30 ml PO DAILY PRN Constipation 09/16/24 09/16/24 Unknown History oral suspension (Milk of Magnesia) ondansetron 4 mg disintegrating 4 mg PO Q6H PRN Nausea And Vomiting 09/16/24 09/16/24 Unknown History tablet sodium phosphates 19 gram-7 118 ml FL DAILY PRN Constipation 09/16/24 09/16/24 Unknown History gram/118 mL enema Physical Exam Vital Signs: Last Vital Signs Temp 97.4 F 09/17/24 15:25 Pulse 98 09/17/24 15:25 Resp 16 09/17/24 15:25 BP 125/64 09/17/24 15:25 Pulse Ox 98 09/17/24 15:25 O2 Del Method Room Air 09/17/24 15:25 BMI result Body Mass Index 28.5 Const General: no acute distress Eyes EOM: EOMs intact bilaterally Neck Neck: Yes supple Resp Auscultation: diminished lung sounds Cardio Rate: regular rate GI Palpation (GI): Soft to palpation Neuro General: moves all extremities Results Lab Results 09/17/24 05:49 09/17/24 08:33 Lab results: Chemistry 09/16/24 09/17/24 09/17/24 10:19 05:49 08:33 Sodium 132 L 133 L 133 L Potassium 5.0 D 5.2 H 4.9 Carbon Dioxide 19 L 17 L 15 L BUN 87 H 89 H 87 H Creatinine 3.34 H 3.80 H 3.78 H Calcium 11.9 H 10.8 H D 10.5 H Hematology 09/16/24 09/17/24 10:19 05:49 WBC 12.9 H 9.8 Hgb 9.4 L 8.4 L Plt Count 227 217 Urinalysis 09/16/24 10:58 Urine Color Dark Yellow Urine Appearance Cloudy Urine pH 5.5 Ur Specific [place] 1.015 Urine Protein 300 (3+) H Urine Glucose (UA) Negative Urine Ketones Negative Urine Blood Large (3+) H Urine Nitrite Negative Ur Leukocyte Esterase Large (3+) H Urine RBC >20 H Urine WBC 11-20 Ur Squamous Epith Cells 0-2 Hyaline Casts 0-2 Assessment and Plan (1) Acute kidney injury superimposed on CKD: Status: Acute Plan Has CKD 3 at baseline; MARYSE likely due to tubular injury Serum creatinine plateaued; Metabolically acidotic Needs USS kidney; Needs NaHCO3 to 1300 PO bid No indication for renal replacement; Labs AM Procedures Date of Service Date of Service: 09/17/24
[2024-09-17 19:41] VITALS: BP 122/65; PULSE 99; RESP 17; TEMP 36.8; O2SAT 97
--- NOTE | 2024-09-17 20:58 | CONS_ITS ---
DATE OF SERVICE: 09/17/2024 REFERRING PHYSICIAN: Kimberlee Pena NP REASON FOR CONSULTATION: Dysphagia. HISTORY OF PRESENT ILLNESS: The patient is a pleasant 79-year-old man, known to me from prior evaluation. He was recently diagnosed with metastatic carcinoma with final pathology pending. This is described in other reports as being undifferentiated and the source was thought to be a possible genitourinary location based on his imaging. He was admitted to the hospital on September 16 with fatigue, weakness, and decreased oral intake as well as confusion. Right lower extremity edema was noted and he underwent evaluation for possible DVT, which was reportedly negative. He also had elevations of his kidney functions. He had been seen as last hospitalization for complaints of dysphagia, but has been able to take liquids and solids in small amounts. He underwent imaging this morning with a modified barium swallow, which was reviewed with Dr. Guidry, this was not appeared to show any em aspiration or stricture. He states that he has been able to keep down liquids and small amounts of food, but has no appetite. There has been no history of obstruction or persistent vomiting. PAST MEDICAL HISTORY: 1. Recent diagnosis of metastatic carcinoma as above. 2. Diverticulosis. 3. Prostate cancer with history of external beam radiation and radiation proctitis. 4. Hypertension. 5. Hyperlipidemia. 6. DVT. 7. Osteoarthritis. CURRENT MEDICATIONS: His current medication list is reviewed in the chart. ALLERGIES: THERE ARE NONE REPORTED. FAMILY HISTORY AND SOCIAL HISTORY: Please see recent consultation from 09/04. These are unchanged. REVIEW OF SYSTEMS: SKIN: No pruritus. HEENT: Negative. CARDIOPULMONARY: No shortness of breath or chest pain. GASTROINTESTINAL: As above. GENITOURINARY: Negative. NEUROPSYCHIATRIC: Negative. PHYSICAL EXAMINATION: GENERAL: Shows a pleasant male, who appears quite fatigued. VITAL SIGNS: Reviewed in the electronic medical record and are stable. SKIN: Anicteric. HEENT: Shows temporal wasting. NECK: Without lymphadenopathy or thyromegaly. LUNGS: Clear. HEART: Shows a regular rate and rhythm. S1, S2. No murmur. ABDOMEN: Soft without focal masses or tenderness. Bowel sounds are present. No organomegaly is noted. EXTREMITIES: Show edema, right greater than left. IMPRESSION: Dysphagia. His laboratory studies and imaging studies are reviewed. His dysphagia may be related to esophageal dysmotility or generalized deconditioning. There does not appear to be any obstructive process. I encouraged him to try to advance his diet as tolerated and he has been seen by Speech Pathology with a final modified barium swallow report pending. Speech therapy may help. I do not think he needs endoscopy at this time. Thanks for asking me to see him. I will follow him in the hospital with you. MD BRANDEE Villatoro/YESI / [id number]
[2024-09-17 21:17] VITALS: BP 131/69; PULSE 99
[2024-09-17] MEDS: traZODone HCL 50 MG TABLET PO (21:17)
[2024-09-18] MEDS: Dextrose 5 % and 0.9 % NaCl 1,000 ML 100 ML IVCONT ×2 (03:02→12:51)
[2024-09-18] MEDS: Albumin Human 25 % 100 ML IV (03:04)
[2024-09-18 03:07] VITALS: BP 133/64; PULSE 94; RESP 16; TEMP 36; O2SAT 96
[2024-09-18 06:10] LABS: Anion Gap 15 (12-20); Blood Urea Nitrogen 88 mg/dL (9-16); Carbon Dioxide 17 mmol/L (22-29); Chloride 107 mmol/L (96-108); Estimated Glomerular Filt Rate 14; Glucose Random 120 mg/dL (60-115); Potassium 4.8 mmol/L (3.3-5.1); Sodium 134 mmol/L (135-145)
[2024-09-18 06:38] VITALS: BP 128/66; PULSE 100; RESP 16; TEMP 36.6; O2SAT 99
--- NOTE | 2024-09-18 08:05 | PM.HEMONCCN ---
Subjective - Subjective Chief complaint: Weakness Patient: known to practice within the last 3 years Consult date: 09/18/24 Primary Care Provider: Cade Enriquez MD [employer] M[employer]ainer Utilized?: No - Pashto Speaking HPI - Consult Narrative Reason for consult: Metastatic malignancy Narrative: Charles Lucero is a 79 year old male who [place] [facility] [place] after recent discharge from the hospital with complaints of confusion, weakness and fatigue, sent from [facility]. He has remote history of prostate cancer status post prostatectomy in [facility] followed by radiation therapy. Patient was diagnosed with DVT about 2 years ago and has been on Eliquis. He has had hematuria which was secondary to combination of anticoagulation and radiation cystitis, he was [place] [facility] [place]. During that admission he was treated for Klebsiella UTI. CT chest/abdomen and pelvis without contrast performed on 09/04/2024 shows several lung lesions largest on the left lung base measuring 2 cm and a right lesion measuring 2.1 cm, innumerable smaller nodes bilaterally, solid mass in the lower pole of the right kidney measuring 7 cm, conglomerate masses in the para-aortic region consistent with lymphadenopathy, 12 cm, enlarged 4.1 cm right inguinal lymph node, multiple masses in the mesentery measuring up to 3.1 cm in size, soft tissue mass which appears to arise from prostate measuring 2.4 x 10.42 and stent 0.6 cm confluent with the para-aortic lymphadenopathy. He underwent biopsy of RP mass on 09/06/2024, pathology is pending. He is now admitted for weakness and found to have worsening renal failure. He is also found to have worsening hypercalcemia, he was previously treated for hypercalcemia with IV fluids, calcitonin and pamidronate. Review of Systems - Constitutional Reports anorexia, Reports fatigue, Reports malaise, Reports weakness, Reports weight loss - Neurologic Denies abnormal speech, Denies headache(s) [facility] Medical History: Medical History (Last Reviewed 09/18/24 @ 11:27 by Nena Zhang, CRUZ) Acute urinary retention Benign essential hypertension Diverticulosis Reen hematuria History of prostate cancer Hypertension Impaired fasting glucose Osteoarthritis of left knee Overweight (BMI 25.0-29.9) Pure hypercholesterolemia Radiation cystitis Renal cyst Urinary retention Vitamin D deficiency Family History: Family History (Last Reviewed 09/16/24 @ 10:19 by PARAMJIT Garcia) Father Cancer Mother Colon cancer Surgical History: Surgical History (Last Reviewed 09/18/24 @ 11:27 by Nena Zhang PT) History of ankle surgery History of colonoscopy History of meniscectomy of left knee Onset Date: ~06/05/12 Hx of prostatectomy Hx of right inguinal hernia repair Onset Date: 02/16/23 Hx of umbilical hernia repair Social History: Social History (Last Reviewed 09/16/24 @ 10:19 by PARAMJIT Garcia) Living Situation History: Household Members: Spouse Housing: House Are you a primary critical care technician to a significant other at home: No Do you presently have visiting nurse or other home services: No Alcohol History Details: 1. How often do you have a drink containing alcohol?: a. Never Currently Displaying Signs/Symptoms of Alcohol Withdrawal: No Tobacco History: Patient Tobacco Use Status: Never used Tobacco e-Cigarette/Vaping Use: Never Used Second Hand Smoke Exposure: No Substance Use History: Use of substances other than those prescribed or required for medical reasons: No Currently Displaying Signs/Symptoms of Drug Intoxication Withdrawal: No Advance Directives: Advance Directives: No Advance Directives Information Provided: Yes Homicidal Assessment: Do you have a plan to hurt others: No Plan Occupation Assessmet: service: No Current occupational status: retired 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 Home Medications and Allergies Current Medications: Current Medications Acetaminophen (Acetaminophen 325 Mg Tablet) 650 mg PO Q6H PRN PRN Reason: Pain, Mild 1-3,fever,headache Amlodipine Besylate (Amlodipine Besylate 5 Mg Tablet) 5 mg PO DAILY [facility]; Protocol Last Admin: 09/17/24 08:34 Dose: 5 mg Bisacodyl (Bisacodyl 10 Mg Supp.Rect) 10 mg [place] DAILY PRN PRN Reason: Constipation Ceftriaxone Sodium (Ceftriaxone Sodium 1 Gm Vial) 1 gm IVPUSH Q24H [facility] Last Admin: 09/17/24 12:44 Dose: 1 gm Dexamethasone (Dexamethasone 2 Mg Tablet) 3 mg PO DAILY [facility] Stop: 09/23/24 09:01 Last Admin: 09/17/24 08:34 Dose: 3 mg Dexamethasone (Dexamethasone 2 Mg Tablet) 2 mg PO DAILY [facility] Stop: 10/01/24 08:59 Heparin Sodium (Porcine) (Heparin Sodium,Porcine 5,000 Unit/Ml Vial) 5,000 unit SUBCUT Q12H [facility] Last Admin: 09/17/24 21:14 Dose: 5,000 unit Dextrose/Sodium Chloride (D5ns) 1,000 mls @ 100 mls/hr IVCONT .Q10H [facility] Last Admin: 09/18/24 03:02 Dose: 100 mls/hr Magnesium Hydroxide (Milk Of Magnesia 30 Ml Oral.Susp) 30 ml PO DAILY PRN PRN Reason: Constipation Melatonin (Melatonin 3 Mg Tablet) 6 mg PO BEDTIME PRN PRN Reason: Insomnia Metoprolol Tartrate (Metoprolol Tartrate 12.5 Mg Halftab) 12.5 mg PO BID [facility]; Protocol Last Admin: 09/17/24 21:15 Dose: 12.5 mg Ondansetron HCl (Ondansetron Hcl 4 Mg/2 Ml Vial) 4 mg IVPUSH Q8H PRN PRN Reason: Nausea and Vomiting Polyethylene Glycol (Polyethylene Glycol 3350 17 Gm Powd.Pack) 17 gm PO DAILY [facility] Last Admin: 09/17/24 08:34 Dose: 17 gm Sodium Chloride (0.9 % Sodium Chloride Flush 3 Ml Syringe) 3 ml IVFLUSH QSHIFT [facility] Last Admin: 09/17/24 21:44 Dose: Not Given Trazodone HCl (Trazodone Hcl 50 Mg Tablet) 50 mg PO BEDTIME [facility] Last Admin: 09/17/24 21:17 Dose: 50 mg Home Medications ?Medication ?Instructions ?Recorded ?Confirmed ?Type acetaminophen 325 mg tablet 650 mg PO Q4H PRN Mild Pain (Scale 09/16/24 09/16/24 History Score 1-4) acetaminophen 325 mg tablet 650 mg PO Q6H PRN Fever 09/16/24 09/16/24 History bisacodyl 10 mg rectal suppository 10 mg [place] DAILY PRN Constipation 09/16/24 09/16/24 History dexamethasone 1 mg tablet See Taper PO DAILY 09/16/24 09/16/24 History magnesium hydroxide 400 mg/5 mL 30 ml PO DAILY PRN Constipation 09/16/24 09/16/24 History oral suspension (Milk of Magnesia) ondansetron 4 mg disintegrating 4 mg PO Q6H PRN Nausea And Vomiting 09/16/24 09/16/24 History tablet sodium phosphates 19 gram-7 118 ml [place] DAILY PRN Constipation 09/16/24 09/16/24 History gram/118 mL enema Allergies Allergy/AdvReac Type Severity Reaction Status Date / Time No Known Allergies Allergy Verified 09/16/24 09:45 Physical Exam Vital signs: Vital Signs Temp 98 F 09/18/24 06:38 Pulse 100 09/18/24 06:38 Resp 16 09/18/24 06:38 BP 128/66 09/18/24 06:38 Pulse Ox 99 09/18/24 06:38 O2 Del Method Room Air 09/18/24 06:38 Intake & Output 09/17/24 09/18/24 09/18/24 18:59 06:59 18:59 Intake Total 1305 / 3080 1775 / 3080 Output Total 400 / 850 450 / 850 Balance 905 / 2230 1325 / 2230 Urine Output (Average ml/kg/hr) 0.38 0.43 Intake: Intake, Oral Amount 480 / 1055 575 / 1055 Intake, IV Amount 825 / 2025 1200 / 2025 Albumin Human 25 % 100 ml @ 100 200 / 400 200 / 400 mls/hr IV Q6H [facility] Rx#: [id number] Dextrose 5 % and 0.9 % NaCl 1, 625 / 1625 1000 / 1625 000 ml @ 100 mls/hr IVCONT . Q10H [facility] Rx#:[id number] Output: Output, Urine Amount (Catheter) 400 / 850 450 / 850 2-way Urethral 400 / 850 450 / 850 Other: Meal Refused No No NPO No No Breakfast % Eaten 75% Lunch % Eaten 50% Dinner % Eaten 100% Eating (Feeding) Ability Independent Independent Number of Unmeasured Voids 1 Number of Bowel Movements 0 Urine Bathroom Urine Color Cloudy with Sediment Anjelica Last Bowel Movement 09/17/24 Weight 87.5 kg - Constitutional Present: mild distress, chronically ill appearing - Routine HEENT Exam Head: Present: normal inspection Eye: Present: EOMI, PERRL - Routine Neck Exam Present: supple. Absent: lymphadenopathy - Routine Respiratory Exam Present: CTAB. Absent: wheezes - Routine Cardiovascular Exam Cardiovascular: Present: S1, S2 - Routine Abdominal Exam Present: soft - Routine Neurological Exam Present: alert, oriented X3 Hem/Onc Consult Result - Labs CBC & Chem 7: 09/19/24 05:34 09/19/24 05:34 Labs: BMP 09/17/24 09/18/24 08:33 05:16 Sodium 133 L 134 L Potassium 4.9 4.8 Chloride 108 107 Carbon Dioxide 15 L 17 L BUN 87 H 88 H Creatinine 3.78 H 4.02 H* Calcium 10.5 H 11.0 H Assessment and Plan Patient Active problem list reviewed?: Yes (1) Lymphadenopathy Status: Acute Assessment and plan: 1. This is a 79-year-old male with remote history of prostate cancer who is now presenting with increasing fatigue and confusion. Found to have acute kidney injury with UTI, sepsis due to polymicrobial UTI. He was started on ceftriaxone. He has developed acute encephalopathy due to infection which is now improving. Hypercalcemia of malignancy, on prior admission he was treated with pamidronate and calcitonin, this is improving. CT chest/abdomen and pelvis without contrast performed on 09/04/2024 shows several lung lesions largest on the left lung base measuring 2 cm and a right lesion measuring 2.1 cm, innumerable smaller nodes bilaterally, solid mass in the lower pole of the right kidney measuring 7 cm, conglomerate masses in the para-aortic region consistent with lymphadenopathy, 12 cm, enlarged 4.1 cm right inguinal lymph node, multiple masses in the mesentery measuring up to 3.1 cm in size, soft tissue mass which appears to arise from prostate measuring 2.4 x 10.42 and stent 0.6 cm confluent with the para-aortic lymphadenopathy. He underwent CT-guided biopsy of retroperitoneal mass on 09/06/2024. Unfortunately, pathology is pending. Discussed with the pathologist, so far immunostains are not conclusive of any primary. Continue supportive care as you are doing. Will follow with you. Thank you for the consultation. - Time Spent With Patient Time Spent with Patient (in minutes): 15 Additional Coding: - Additional E/M codes Complex E/M visit Add On: CPT G2211
[2024-09-18] MEDS: Metoprolol Tartrate 12.5 MG HALFTAB PO ×2 (08:22→20:47)
[2024-09-18] MEDS: amLODIPine Besylate 5 MG TABLET PO (08:23)
[2024-09-18] MEDS: dexAMETHasone 2 MG TABLET 3 MG PO (08:24)
[2024-09-18] MEDS: polyethylene glycoL 3350 17 GM POWD.PACK PO (08:24)
--- NOTE | 2024-09-18 09:16 | P.CNUR_ITS ---
History of Present Illness Consult details Consult date: 09/18/24 Narrative: CC: Urinary tract infection 79-year-old male Well known to Urology Prior prostate cancer with radiation and prostatectomy On Eliquis for DVT Presentation with persistent UTI Previously with Morales catheter Current therapy Rocephin Please refer to prior urine culture performed externally which shows multiple bacteria. Best treatment was levofloxacin. One of the species is not sensitive to cephalosporins which are currently being given. Review of Systems 2 Constitutional: Constitutional: Reports as per HPI and Reports no additional constitutional complaints Cardiovascular: Cardiovascular: Reports as per HPI and Reports no additional cardiovascular complaints Respiratory: Respiratory: Reports as per HPI and Reports no additional respiratory complaints Gastrointestinal: Gastrointestinal: Reports as per HPI and Reports no additional gastrointestinal complaints Genitourinary: Genitourinary: Reports as per HPI Musculoskeletal: Musculoskeletal: Reports no additional musculoskeletal complaints and Reports as per HPI Neurologic: Reports system reviewed and no additional complaints, except as documented and Reports as per HPI PMFSH Past Medical History Medical History Urinary retention Rene hematuria Acute urinary retention Radiation cystitis Hypertension Diverticulosis Overweight (BMI 25.0-29.9) History of prostate cancer Renal cyst Vitamin D deficiency Osteoarthritis of left knee Impaired fasting glucose Pure hypercholesterolemia Benign essential hypertension Family History Family History Father Cancer Mother Colon cancer Surgical History Surgical History Hx of right inguinal hernia repair (02/16/23) History of ankle surgery History of colonoscopy History of meniscectomy of left knee (~06/05/12) Hx of prostatectomy Hx of umbilical hernia repair Social History Social History Household Members: Spouse Housing: House Are you a primary account executive healthcare to a significant other at home: No Do you presently have visiting nurse or other home services: No Alcohol intake: current Alcohol intake frequency: 0-2 drinks per day Alcohol type: beer Comment: . 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 Cognitive needs: No Hearing needs: No Vision needs: Yes (Glasses) Meds Allergies Allergy/AdvReac Type Severity Reaction Status Date / Time No Known Allergies Allergy Verified 09/16/24 09:45 Active Medications: Current Medications Acetaminophen (Acetaminophen 325 Mg Tablet) 650 mg PO Q6H PRN PRN Reason: Pain, Mild 1-3,fever,headache Amlodipine Besylate (Amlodipine Besylate 5 Mg Tablet) 5 mg PO DAILY [facility]; Protocol Last Admin: 09/18/24 08:23 Dose: 5 mg Bisacodyl (Bisacodyl 10 Mg Supp.Rect) 10 mg FL DAILY PRN PRN Reason: Constipation Ceftriaxone Sodium (Ceftriaxone Sodium 1 Gm Vial) 1 gm IVPUSH Q24H [facility] Last Admin: 09/17/24 12:44 Dose: 1 gm Dexamethasone (Dexamethasone 2 Mg Tablet) 3 mg PO DAILY [facility] Stop: 09/23/24 09:01 Last Admin: 09/18/24 08:24 Dose: 3 mg Dexamethasone (Dexamethasone 2 Mg Tablet) 2 mg PO DAILY [facility] Stop: 10/01/24 08:59 Heparin Sodium (Porcine) (Heparin Sodium,Porcine 5,000 Unit/Ml Vial) 5,000 unit SUBCUT Q12H [facility] Last Admin: 09/17/24 21:14 Dose: 5,000 unit Dextrose/Sodium Chloride (D5ns) 1,000 mls @ 100 mls/hr IVCONT .Q10H [facility] Last Admin: 09/18/24 03:02 Dose: 100 mls/hr Magnesium Hydroxide (Milk Of Magnesia 30 Ml Oral.Susp) 30 ml PO DAILY PRN PRN Reason: Constipation Melatonin (Melatonin 3 Mg Tablet) 6 mg PO BEDTIME PRN PRN Reason: Insomnia Metoprolol Tartrate (Metoprolol Tartrate 12.5 Mg Halftab) 12.5 mg PO BID [facility]; Protocol Last Admin: 09/18/24 08:22 Dose: 12.5 mg Ondansetron HCl (Ondansetron Hcl 4 Mg/2 Ml Vial) 4 mg IVPUSH Q8H PRN PRN Reason: Nausea and Vomiting Polyethylene Glycol (Polyethylene Glycol 3350 17 Gm Powd.Pack) 17 gm PO DAILY [facility] Last Admin: 09/18/24 08:24 Dose: 17 gm Sodium Bicarbonate (Sodium Bicarbonate 650 Mg Tablet) 650 mg PO BID [facility] Sodium Chloride (0.9 % Sodium Chloride Flush 3 Ml Syringe) 3 ml IVFLUSH QSHIFT [facility] Last Admin: 09/18/24 08:33 Dose: Not Given Trazodone HCl (Trazodone Hcl 50 Mg Tablet) 50 mg PO BEDTIME [facility] Last Admin: 09/17/24 21:17 Dose: 50 mg Home Medications ?Medication ?Instructions ?Recorded ?Confirmed ?Last Taken ?Type acetaminophen 325 mg tablet 650 mg PO Q4H PRN Mild Pain (Scale 09/16/24 09/16/24 Unknown History Score 1-4) acetaminophen 325 mg tablet 650 mg PO Q6H PRN Fever 09/16/24 09/16/24 Unknown History bisacodyl 10 mg rectal suppository 10 mg FL DAILY PRN Constipation 09/16/24 09/16/24 Unknown History dexamethasone 1 mg tablet See Taper PO DAILY 09/16/24 09/16/24 Unknown History magnesium hydroxide 400 mg/5 mL 30 ml PO DAILY PRN Constipation 09/16/24 09/16/24 Unknown History oral suspension (Milk of Magnesia) ondansetron 4 mg disintegrating 4 mg PO Q6H PRN Nausea And Vomiting 09/16/24 09/16/24 Unknown History tablet sodium phosphates 19 gram-7 118 ml FL DAILY PRN Constipation 09/16/24 09/16/24 Unknown History gram/118 mL enema Physical Exam 2 Vital Signs: Vital Signs: Last Vital Signs Temp 98 F 09/18/24 06:38 Pulse 100 09/18/24 06:38 Resp 16 09/18/24 06:38 BP 128/66 09/18/24 06:38 Pulse Ox 99 09/18/24 06:38 O2 Del Method Room Air 09/18/24 06:38 BMI result Body Mass Index 28.5 Const: General: cooperative, healthy appearing, comfortable and no acute distress Orientation/consciousness: patient oriented x3 HEENT: Face and sinus: Yes normal facial exam Mouth: moist mucous membranes Neck: Neck: Yes normal visual inspection, Yes full ROM and Yes trachea midline Chest: Chest palpation & inspection: normal inspection of the chest Resp: Effort & Inspection: normal respiratory effort, able to speak in complete sentences and no respiratory distress GI: Inspection: Yes normal to inspection Back/Spine/Pelvis: Cervical Spine: normal cervical lordosis Thoracic/Lumbar Spine: thoracic and lumbar spine normal to inspection Skin: General skin exam: no rashes or lesions noted Neuro: General: patient oriented x3, tone normal and moves all extremities Extrem: General: Yes normal to inspection and Yes capillary refill normal Results Labs 09/17/24 05:49 09/18/24 05:16 Labs: Abnormal lab results 09/17/24 09/18/24 Range/Units 08:33 05:16 Sodium 133 L 134 L (135-145) mmol/L Carbon Dioxide 15 L 17 L (22-29) mmol/L BUN 87 H 88 H (9-16) mg/dL Creatinine 3.78 H 4.02 H* (0.5-1.4) mg/dL Random Glucose 120 H (60-115) mg/dL Calcium 10.5 H 11.0 H (8.4-10.2) mg/dL BMP 09/17/24 09/18/24 08:33 05:16 Sodium 133 L 134 L Potassium 4.9 4.8 Chloride 108 107 Carbon Dioxide 15 L 17 L BUN 87 H 88 H Creatinine 3.78 H 4.02 H* Calcium 10.5 H 11.0 H Urine 09/16/24 Range/Units 10:58 Urine Color Dark Yellow Urine Appearance Cloudy Urine pH 5.5 (5.0-9.0) Ur Specific [place] 1.015 (1.005-1.025) Urine Protein 300 (3+) H (Neg-Trace) mg/dL Urine Glucose (UA) Negative (Negative) mg/dL All other labs normal. Assessment and Plan (1) Urinary urgency: Status: Acute (2) Radiation cystitis: Status: Acute (3) Acute UTI: Status: Acute Plan Add Levaquin Procedures Date of Service Date of Service: 09/18/24
[2024-09-18] MEDS: Heparin Sodium,Porcine 5,000 UNIT/ML VIAL 5000 UNIT SUBCUT ×2 (10:25→20:47)
[2024-09-18] MEDS: levoFLOXacin/D5W 500 MG/100 ML PIGGYBACK 100 MG IV (10:26)
[2024-09-18] MEDS: Sodium Bicarbonate 650 MG TABLET PO ×2 (10:26→20:47)
[2024-09-18 11:26] VITALS: BP 128/66; PULSE 100; O2SAT 99
[2024-09-18] MEDS: cefTRIAXone sodium 1 GM VIAL IVPUSH (12:51)
--- NOTE | 2024-09-18 13:26 | MHC.CM.PN ---
PT rec STR. Patient not medically cleared at this time. JGS following.
--- NOTE | 2024-09-18 14:07 | P.PNIM_ITS ---
Subjective Subjective Date of Service: 09/18/24 Interval History: SCr slightly worse feels fatigued, dyspneic on exertion Review of Systems Review of Systems: Yes all other systems are reviewed and are negative Physical Exam 2 Vital Signs: Vital Signs: Last Vital Signs Temp 98 F 09/18/24 06:38 Pulse 100 09/18/24 11:26 Resp 16 09/18/24 06:38 BP 128/66 09/18/24 11:26 Pulse Ox 99 09/18/24 11:26 O2 Del Method Room Air 09/18/24 06:38 BMI result Body Mass Index 28.5 Gen: in no acute distress HEENT: sclera anicteric, moist mucus membranes Neck: supple Lungs: clear to auscultation bilaterally Heart: regular rate and rhythm, no murmurs Abd: soft, non-tender, non-distended Ext: R>L leg edema Skin: warm/well-perfused Neuro: alert and oriented x3, no focal findings Psych: appropriate affect Objective Data Active Medications Acetaminophen (Acetaminophen 325 Mg Tablet) 650 mg PO Q6H PRN PRN Reason: Pain, Mild 1-3,fever,headache Amlodipine Besylate (Amlodipine Besylate 5 Mg Tablet) 5 mg PO DAILY [facility]; Protocol Last Admin: 09/18/24 08:23 Dose: 5 mg Documented By: TONY Bisacodyl (Bisacodyl 10 Mg Supp.Rect) 10 mg [place] DAILY PRN PRN Reason: Constipation Ceftriaxone Sodium (Ceftriaxone Sodium 1 Gm Vial) 1 gm IVPUSH Q24H [facility] Last Admin: 09/18/24 12:51 Dose: 1 gm Documented By: TONY Dexamethasone (Dexamethasone 2 Mg Tablet) 3 mg PO DAILY [facility] Stop: 09/23/24 09:01 Last Admin: 09/18/24 08:24 Dose: 3 mg Documented By: TONY Dexamethasone (Dexamethasone 2 Mg Tablet) 2 mg PO DAILY [facility] Stop: 10/01/24 08:59 Heparin Sodium (Porcine) (Heparin Sodium,Porcine 5,000 Unit/Ml Vial) 5,000 unit SUBCUT Q12H [facility] Last Admin: 09/18/24 10:25 Dose: 5,000 unit Documented By: TONY Dextrose/Sodium Chloride (D5ns) 1,000 mls @ 100 mls/hr IVCONT .Q10H [facility] Last Admin: 09/18/24 12:51 Dose: 100 mls/hr Documented By: TONY Levofloxacin (Levaquin) 500 mg in 100 mls @ 100 mls/hr IV Q24H [facility] Last Infusion: 09/18/24 12:45 Dose: Infused Documented By: TONY Magnesium Hydroxide (Milk Of Magnesia 30 Ml Oral.Susp) 30 ml PO DAILY PRN PRN Reason: Constipation Melatonin (Melatonin 3 Mg Tablet) 6 mg PO BEDTIME PRN PRN Reason: Insomnia Metoprolol Tartrate (Metoprolol Tartrate 12.5 Mg Halftab) 12.5 mg PO BID [facility]; Protocol Last Admin: 09/18/24 08:22 Dose: 12.5 mg Documented By: TONY Ondansetron HCl (Ondansetron Hcl 4 Mg/2 Ml Vial) 4 mg IVPUSH Q8H PRN PRN Reason: Nausea and Vomiting Polyethylene Glycol (Polyethylene Glycol 3350 17 Gm Powd.Pack) 17 gm PO DAILY [facility] Last Admin: 09/18/24 08:24 Dose: 17 gm Documented By: TONY Sodium Bicarbonate (Sodium Bicarbonate 650 Mg Tablet) 650 mg PO BID [facility] Last Admin: 09/18/24 10:26 Dose: 650 mg Documented By: TONY Sodium Chloride (0.9 % Sodium Chloride Flush 3 Ml Syringe) 3 ml IVFLUSH QSHIFT [facility] Last Admin: 09/18/24 08:33 Dose: Not Given Documented By: TONY Non-Admin Reason: IV Running Trazodone HCl (Trazodone Hcl 50 Mg Tablet) 50 mg PO BEDTIME [facility] Last Admin: 09/17/24 21:17 Dose: 50 mg Documented By: LAN-BREANA Labs 09/17/24 05:49 09/18/24 05:16 Labs: Laboratory Results - last 24 hr 09/18/24 05:16 Hold Purple Top SEE NOTE Anion Gap 15 Estim Creat Clear Calc 16.0 Estimated GFR 14 Random Glucose 120 H Calcium 11.0 H Microbiology Microbiology Results: Microbiology 09/16/24 11:52 Blood Culture - Preliminary Blood - Venous No growth after 48 hours. 09/16/24 11:35 Blood Culture - Preliminary Blood - Venous No growth after 48 hours. 09/16/24 Unknown Urine Culture - Final Urine Catheterized - Morales Catheter Klebsiella aerogenes Assessment and Plan (1) Acute kidney injury superimposed on CKD: Status: Acute Plan d3 for 79yo M from 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, sent in with increasing fatigue, weakness, and confusion; found to have MARYSE and UTI sepsis due to polymicrobial UTI - ceftriaxone 09/16-, BCx negative, per Urology added levofloxacin 09/18- as per [facility] PCR report 09/06 Enterococcus faecalis, Klebsiella aerogenes, and Raoultella ornithinolytica, of which all are susceptible to quinolone acute encephalopathy due to infection - resolving MARYSE NAGMA - suspect due to hypovolemia vs tubular injury - start PO bicarbonate - continue albumin, Nephrology consulted + following - recheck SCr in AM hyperCa of malignancy - on dexamethasone taper per last admission: vitamin D3 levels were 94 suggestive of increase 1 alpha hydroxylase activity possibly secondary to underlying malignancy, likely lymphomas. PTH levels are low secondary to hypercalcemia. CT scan of chest abdomen and pelvis did not show any bony metastasis. Patient had biopsy of the retroperitoneal mass which is still pending. Although the actual treatment is to treat the cancer per se, in the meantime we started the patient on dexamethasone 4 mg daily to decrease the 1 alpha hydroxylase activity, we will taper dexamethasone by 1 mg every week. anemia of chronic disease - H+H stable dysphagia - MBSS done 09/17, per PROFESSOR OF EXERCISE SCIENCE very slow oral phase and compromised airway protection. Trace penetration seen intermittently with thin liquid and mixed media (puree with liquid). No evidence of aspiration. Moderate pharyngeal retention partially cleared with strategies. Once cleared to advance from Full Liquids, recc start on CHOPPED/ADVANCED (NDD3) solids and THIN liquids, pills WHOLE in PUREE, ' undifferentiated metastatic CA - Oncology consulted, final pathology still pending HTN - continue amlodipine + metoprolol tartrate VTE ppx - UFH dispo - eventual return to SNF In my clinical judgment, the patient requires continued inpatient hospitalization for the following reasons: MARYSE, IV ABX Total time managing care of this patient today: 45 minutes. Quality Stroke Does the patient have a stroke diagnosis?: No VTE Prior VTE?: No VTE Risk Level:: Medical - moderate - high VTE Device Contraindication: N/A - Device Ordered VTE Drug Contraindication: N/A - Med Ordered
[2024-09-18 15:20] VITALS: BP 123/59; PULSE 97; RESP 20; TEMP 36.4; O2SAT 98
--- NOTE | 2024-09-18 16:21 | MHC.SL.SWA ---
Speech Pathologist Impression: Moderate oropharyngeal dysphagia Risk of Aspiration Due to: Medically Fragile Poor PO Intake Dysphasia Diet Status: [facility] 09/17/24: Patient presents with moderate oropharyngeal dysphagia, characterized by markedly slowed and delayed oral phase. Mastication was slowed and prolonged, slowed posterior lingual movement, with brief periods of repetitive tongue rocking motion or holding of bolus in the oral cavity. Patient swallowed 2-3 times on each bite/sip in order to clear the bolus. Pharyngeal swallow trigger was timely, however, with compromised airway protection due to partial epiglottic inversion and incomplete laryngeal vestibular closure. There was trace penetration seen intermittently with thin liquid and mixed media (puree with liquid). No evidence of aspiration during this exam. Moderate retention seen in the valleculae and pyriform sinuses, especially on trials of harder solids. Patient was able to reduce residue with liquid wash and dry swallows. Partial pharyngoesophgeal segment opening likely contributed to pharyngeal retention. Liquid Consistency and Strategies for Safe Swallow: Liquid Intake Recommendation: Thin Liquid Intake Strategies: Small Sips No Straws Double Swallow Solid Food Consistency: Dietary Recommendations: Chopped/Advanced (NDD3) Additional Modifications to Solid Foods: Oral Medication Intake: Whole with Puree Please contact the pharmacy regarding appropriate crushable or liquid drug formulations that are available whenever modified delivery is recommended. Compensatory Strategies and Precautions to be Taken for Safe Swallow: Sitting Upright (90 deg) Double Swallow Small Bites and Sips Alternate Liquids/Solids Rate of Ingestion Change Supervision While Eating and Drinking for Safe Swallow: Direct Supervision (1:1) Foods to Avoid: Mixed consistencies, overly tough, dry, or chewy foods Swallowing Recommended Treatments: Compens. Strategy Educat. Recommendation for Speech: Inpatient Speech Therapy Speech Therapy through Rehab Facility Comment: Recommend CHOPPED/ADVANCED (NDD3) diet with THIN liquids, pills WHOLE in PUREE. Patient is recommended standard aspiration precautions and strategies to promote oral and pharyngeal clearance: -take one sip at a time -AVOID straws -AVOID chain sipping -take one bite at a time -moisten foods with thick sauces/gravies -chew food well -alternate with sips of liquid -1-2 dry swallows after each bite/sip -AVOID mixed consistencies, overly dry or tough foods -maintain upright 90 degree position during PO intake and for at least 30 minutes afterwards 6/4 Pt seen for dysphagia treatment. Pt had already eaten lunch, politely refused PO. Pt c/o recent hx of reflux, GI consulting. ESL TUTOR reviewed results of MBSS and safety recommendations with pt, who verbalized understanding and agreed with POC. ESL TUTOR to follow while inpatient, pt may benefit from continued intervention upon d/c. Frequency/Duration: Daily M-F Date Range for Service Req: Timeline to reassess: PRN Smoked Meat Preparer Clinican/Clinical Fellow: No Supervisory Statement: I have reviewed and agree with the student/clinical fellow's documentation: N/A Speech Language Pathologist: Delores Hamilton M.S., CCC-ESL TUTOR
[2024-09-18 19:28] VITALS: BP 137/65; PULSE 99; RESP 18; TEMP 36.7; O2SAT 99
--- NOTE | 2024-09-18 20:42 | P.PNNP_ITS ---
Subjective Subjective Date of Service: 09/18/24 Interval history: SCr slightly worse; feels fatigued, dyspneic on exertion Physical Exam 2 Vital Signs: Vital Signs: Last Vital Signs Temp 98.0 F 09/18/24 19:28 Pulse 99 09/18/24 19:28 Resp 18 09/18/24 19:28 BP 137/65 09/18/24 19:28 Pulse Ox 99 09/18/24 19:28 O2 Del Method Room Air 09/18/24 19:28 BMI result Body Mass Index 28.5 Const: General: no acute distress Eyes: EOM: EOMs intact bilaterally Resp: Auscultation: diminished lung sounds Cardio: Rate: regular rate GI: Palpation (GI): Soft to palpation Neuro: General: moves all extremities Objective Data Labs 09/17/24 05:49 09/18/24 05:16 Labs: Laboratory Results - last 24 hr 09/18/24 05:16 Hold Purple Top SEE NOTE Sodium 134 L Potassium 4.8 Chloride 107 Carbon Dioxide 17 L Anion Gap 15 BUN 88 H Creatinine 4.02 H* Estim Creat Clear Calc 16.0 Estimated GFR 14 Random Glucose 120 H Calcium 11.0 H Microbiology Microbiology Results: Microbiology 09/16/24 11:52 Blood - Venous Blood Culture - Preliminary No growth after 48 hours. 09/16/24 11:35 Blood - Venous Blood Culture - Preliminary No growth after 48 hours. 09/16/24 Unknown Urine Catheterized - Morales Catheter Urine Culture - Final Klebsiella aerogenes Procedures Date of Service Date of Service: 09/18/24 Assessment & Plan Assessment and plan (1) Acute kidney injury superimposed on CKD: Status: Acute Plan Has CKD 3 at baseline; MARYSE likely due to tubular injury Serum creatinine not plateaued; Metabolically acidotic Started NaHCO3 for metabolic acidosis No indication for renal replacement yet; Labs AM Progress Note: Quality Stroke Does the patient have a stroke diagnosis?: No
[2024-09-18] MEDS: traZODone HCL 50 MG TABLET PO (20:47)
[2024-09-19 03:04] VITALS: BP 102/58; PULSE 55; RESP 16; TEMP 36; O2SAT 98
[2024-09-19 06:00] LABS: Hematocrit 27.3 % (42.0-52.0); Mean Corpuscular Hemoglobin 28.8 pg (27.0-33.0); Mean Corpuscular Volume 87.2 fL (80.0-98.0); Mean Platelet Volume 8.3 fL (9.4-12.4); Platelet Count 230 X10*3/uL (160-400); Red Blood Count 3.13 X10*6/uL (4.60-5.80); White Blood Count 13.1 X10*3/uL (4.8-10.8)
[2024-09-19 06:19] LABS: Anion Gap 17 (12-20); Blood Urea Nitrogen 92 mg/dL (9-16); Calcium 11.5 mg/dL (8.4-10.2); Carbon Dioxide 15 mmol/L (22-29); Chloride 108 mmol/L (96-108); Creatinine Clr Calc Pharmacy 17.9; Estimated Glomerular Filt Rate 16; Glucose Random 102 mg/dL (60-115); Sodium 135 mmol/L (135-145)
[2024-09-19 07:28] VITALS: BP 108/61; PULSE 102; RESP 16; TEMP 36.3; O2SAT 98
[2024-09-19 09:15] VITALS: BP 116/64; PULSE 109
[2024-09-19] MEDS: Metoprolol Tartrate 12.5 MG HALFTAB PO ×2 (09:15→20:43)
[2024-09-19] MEDS: Sodium Bicarbonate 650 MG TABLET PO ×2 (09:15→20:43)
[2024-09-19] MEDS: amLODIPine Besylate 5 MG TABLET PO (09:16)
[2024-09-19] MEDS: dexAMETHasone 2 MG TABLET 3 MG PO (09:16)
[2024-09-19] MEDS: Heparin Sodium,Porcine 5,000 UNIT/ML VIAL 5000 UNIT SUBCUT ×2 (09:17→20:43)
[2024-09-19] MEDS: polyethylene glycoL 3350 17 GM POWD.PACK PO (09:17)
[2024-09-19] MEDS: Albumin Human 25 % 100 ML IV ×3 (09:18→20:43)
[2024-09-19] MEDS: 0.9 % Sodium Chloride Flush 3 ML SYRINGE IVFLUSH ×3 (09:19→20:44)
[2024-09-19] MEDS: levoFLOXacin/D5W 500 MG/100 ML PIGGYBACK 100 MG IV (10:24)
--- NOTE | 2024-09-19 10:38 | HO.PM.IMPN ---
Subjective Subjective Date of Service: 09/19/24 Interval History: SCr slightly improved Legs swollen Denies pain Endorses weakness Review of Systems Review of Systems: Yes all other systems are reviewed and are negative Physical Exam Vital Signs: Vital Signs: Last Vital Signs Temp 97.4 F 09/19/24 07:28 Pulse 109 H 09/19/24 09:15 Resp 16 09/19/24 07:28 BP 116/64 09/19/24 09:15 Pulse Ox 98 09/19/24 07:28 O2 Del Method Room Air 09/19/24 07:28 BMI result Body Mass Index 28.5 Gen: in no acute distress HEENT: sclera anicteric, moist mucus membranes Neck: supple Lungs: clear to auscultation bilaterally Heart: regular rate and rhythm, no murmurs Abd: soft, non-tender, non-distended Ext: R>L leg edema Skin: warm/well-perfused Neuro: alert and oriented x3, no focal findings Psych: appropriate affect Objective Data Active Medications Acetaminophen (Acetaminophen 325 Mg Tablet) 650 mg PO Q6H PRN PRN Reason: Pain, Mild 1-3,fever,headache Amlodipine Besylate (Amlodipine Besylate 5 Mg Tablet) 5 mg PO DAILY [facility]; Protocol Last Admin: 09/19/24 09:16 Dose: 5 mg Documented By: DAYTON Bisacodyl (Bisacodyl 10 Mg Supp.Rect) 10 mg DE DAILY PRN PRN Reason: Constipation Ceftriaxone Sodium (Ceftriaxone Sodium 1 Gm Vial) 1 gm IVPUSH Q24H [facility] Last Admin: 09/18/24 12:51 Dose: 1 gm Documented By: TONY Dexamethasone (Dexamethasone 2 Mg Tablet) 3 mg PO DAILY [facility] Stop: 09/23/24 09:01 Last Admin: 09/19/24 09:16 Dose: 3 mg Documented By: DAYTON Dexamethasone (Dexamethasone 2 Mg Tablet) 2 mg PO DAILY [facility] Stop: 10/01/24 08:59 Heparin Sodium (Porcine) (Heparin Sodium,Porcine 5,000 Unit/Ml Vial) 5,000 unit SUBCUT Q12H [facility] Last Admin: 09/19/24 09:17 Dose: 5,000 unit Documented By: DAYTON Levofloxacin (Levaquin) 500 mg in 100 mls @ 100 mls/hr IV Q24H [facility] Last Admin: 09/19/24 10:24 Dose: 100 mls/hr Documented By: SHANI Albumin Human (Kedbumin 25 %) 100 mls @ 100 mls/hr IV Q6H [facility] Stop: 09/20/24 03:59 Last Infusion: 09/19/24 10:23 Dose: Infused Documented By: SHANI Magnesium Hydroxide (Milk Of Magnesia 30 Ml Oral.Susp) 30 ml PO DAILY PRN PRN Reason: Constipation Melatonin (Melatonin 3 Mg Tablet) 6 mg PO BEDTIME PRN PRN Reason: Insomnia Metoprolol Tartrate (Metoprolol Tartrate 12.5 Mg Halftab) 12.5 mg PO BID [facility]; Protocol Last Admin: 09/19/24 09:15 Dose: 12.5 mg Documented By: DAYTON Ondansetron HCl (Ondansetron Hcl 4 Mg/2 Ml Vial) 4 mg IVPUSH Q8H PRN PRN Reason: Nausea and Vomiting Polyethylene Glycol (Polyethylene Glycol 3350 17 Gm Powd.Pack) 17 gm PO DAILY [facility] Last Admin: 09/19/24 09:17 Dose: 17 gm Documented By: DAYTON Sodium Bicarbonate (Sodium Bicarbonate 650 Mg Tablet) 650 mg PO BID [facility] Last Admin: 09/19/24 09:15 Dose: 650 mg Documented By: DAYTON Sodium Chloride (0.9 % Sodium Chloride Flush 3 Ml Syringe) 3 ml IVFLUSH QSHIFT [facility] Last Admin: 09/19/24 09:19 Dose: 3 ml Documented By: DAYTON Trazodone HCl (Trazodone Hcl 50 Mg Tablet) 50 mg PO BEDTIME [facility] Last Admin: 09/18/24 20:47 Dose: 50 mg Documented By: LAN-ESAO Labs 09/19/24 05:34 09/19/24 05:34 Labs: Laboratory Results - last 24 hr 09/19/24 05:34 MCV 87.2 MCH 28.8 MCHC 33.0 RDW 17.0 H Plt Count 230 MPV 8.3 L Absolute Nucleated RBC 0.000 Nucleated RBC % (auto) 0.0 Anion Gap 17 Estim Creat Clear Calc 17.9 Estimated GFR 16 Random Glucose 102 Calcium 11.5 H Microbiology Microbiology Results: Microbiology 09/16/24 11:52 Blood Culture - Preliminary Blood - Venous No growth after 48 hours. 09/16/24 11:35 Blood Culture - Preliminary Blood - Venous No growth after 48 hours. 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, sent in with increasing fatigue, weakness, and confusion; found to have MARYSE and UTI sepsis due to polymicrobial UTI - ceftriaxone 09/16-09/19, BCx negative, per Urology changed to levofloxacin 09/18- as per [facility] PCR report 09/06 growing Enterococcus faecalis, Klebsiella aerogenes, and Raoultella ornithinolytica, of which all are susceptible to quinolone acute encephalopathy due to infection - resolving MARYSE NAGMA - suspect due to hypovolemia vs tubular injury - started PO bicarbonate - continue albumin, Nephrology consulted + following - recheck SCr in AM; improving hyperCa of malignancy - on dexamethasone taper per last admission: vitamin D3 levels were 94 suggestive of increase 1 alpha hydroxylase activity possibly secondary to underlying malignancy, likely lymphomas. PTH levels are low secondary to hypercalcemia. CT scan of chest abdomen and pelvis did not show any bony metastasis. Patient had biopsy of the retroperitoneal mass which is still pending. Although the actual treatment is to treat the cancer per se, in the meantime we started the patient on dexamethasone 4 mg daily to decrease the 1 alpha hydroxylase activity, we will taper dexamethasone by 1 mg every week. anemia of chronic disease - H+H stable dysphagia - MBSS done 09/17, per [employer]: very slow oral phase and compromised airway protection. Trace penetration seen intermittently with thin liquid and mixed media (puree with liquid). No evidence of aspiration. Moderate pharyngeal retention partially cleared with strategies. Once cleared to advance from Full Liquids, recc start on CHOPPED/ADVANCED (NDD3) solids and THIN liquids, pills WHOLE in PUREE, ' undifferentiated metastatic CA - Oncology consulted, final pathology still pending immunostains HTN - continue amlodipine + metoprolol tartrate VTE ppx - UFH dispo - eventual return to SNF In my clinical judgment, the patient requires continued inpatient hospitalization for the following reasons: MARYSE, IV ABX Total time managing care of this patient today: 35 minutes. Quality Stroke Does the patient have a stroke diagnosis?: No VTE Prior VTE?: No VTE Risk Level:: Medical - moderate - high VTE Device Contraindication: N/A - Device Ordered VTE Drug Contraindication: N/A - Med Ordered
--- NOTE | 2024-09-19 10:45 | PM.EVENT ---
Event Note Date of Service: 09/19/24 Event Note: EGD erosive gastritis 3 duodenal ulcers, one with a small oozing visible vessel treated with epinephrine and gold probe. Rec Advance diet cont ppi monitor hct Time Spent With Patient Time: Total time managing care of this patient today ____ minutes.
[2024-09-19 13:24] VITALS: BP 116/64; PULSE 109
[2024-09-19] MEDS: cefTRIAXone sodium 1 GM VIAL IVPUSH (13:25)
[2024-09-19 15:28] VITALS: BP 110/55; PULSE 96; RESP 18; TEMP 36.6; O2SAT 97
--- NOTE | 2024-09-19 16:22 | MHC.CM.PN ---
Per MD rounds, patient not medically cleared - likely tomorrow. [facility] no longer has a bed to offer. Patient/family prefer [place]. Awaiting response.
--- NOTE | 2024-09-19 16:37 | P.PNNP_ITS ---
Subjective Subjective Date of Service: 09/19/24 Interval history: Events noted Physical Exam 2 Vital Signs: Vital Signs: Last Vital Signs Temp 97.8 F 09/19/24 15:28 Pulse 96 09/19/24 15:28 Resp 18 09/19/24 15:28 BP 110/55 L 09/19/24 15:28 Pulse Ox 97 09/19/24 15:28 O2 Del Method Room Air 09/19/24 15:28 BMI result Body Mass Index 28.5 Const: General: no acute distress Eyes: EOM: EOMs intact bilaterally Neck: Neck: Yes supple Resp: Auscultation: diminished lung sounds Cardio: Rate: regular rate GI: Palpation (GI): Soft to palpation Neuro: General: moves all extremities Objective Data Labs 09/19/24 05:34 09/19/24 05:34 Labs: Laboratory Results - last 24 hr 09/19/24 05:34 WBC 13.1 H RBC 3.13 L Hgb 9.0 L Hct 27.3 L MCV 87.2 MCH 28.8 MCHC 33.0 RDW 17.0 H Plt Count 230 MPV 8.3 L Absolute Nucleated RBC 0.000 Nucleated RBC % (auto) 0.0 Sodium 135 Potassium 5.0 Chloride 108 Carbon Dioxide 15 L Anion Gap 17 BUN 92 H Creatinine 3.60 H Estim Creat Clear Calc 17.9 Estimated GFR 16 Random Glucose 102 Calcium 11.5 H Microbiology Microbiology Results: Microbiology 09/16/24 11:52 Blood - Venous Blood Culture - Preliminary No growth after 48 hours. 09/16/24 11:35 Blood - Venous Blood Culture - Preliminary No growth after 48 hours. 09/16/24 Unknown Urine Catheterized - Morales Catheter Urine Culture - Final Klebsiella aerogenes Procedures Date of Service Date of Service: 09/19/24 Assessment & Plan Assessment and plan (1) Acute kidney injury superimposed on CKD: Status: Acute Plan Has CKD 3 at baseline; MARYSE likely due to tubular injury Serum creatinine is better; Metabolically acidotic on NaHCO3 for metabolic acidosis No indication for renal replacement Time Spent With Patient Time: Total time managing care of this patient today ____ minutes. Progress Note: Quality Stroke Does the patient have a stroke diagnosis?: No
[2024-09-19 19:08] VITALS: BP 133/65; PULSE 104; RESP 18; TEMP 36.6; O2SAT 92
[2024-09-19] MEDS: traZODone HCL 50 MG TABLET PO (20:43)
[2024-09-20] MEDS: Albumin Human 25 % 100 ML IV (03:09)
[2024-09-20] MEDS: ondansetron HCL 4 MG/2 ML VIAL IVPUSH (03:13)
[2024-09-20 03:18] VITALS: BP 126/61; PULSE 108; RESP 16; TEMP 36.1; O2SAT 97
[2024-09-20 06:35] LABS: Anion Gap 17 (12-20); Blood Urea Nitrogen 96 mg/dL (9-16); Calcium 12.3 mg/dL (8.4-10.2); Carbon Dioxide 18 mmol/L (22-29); Chloride 107 mmol/L (96-108); Creatinine Clr Calc Pharmacy 17.9; Estimated Glomerular Filt Rate 16; Glucose Random 87 mg/dL (60-115); Potassium 5.1 mmol/L (3.3-5.1); Sodium 137 mmol/L (135-145)
[2024-09-20 06:36] LABS: Hematocrit 23.7 % (42.0-52.0); Mean Corpuscular HGB Conc 33.8 g/dl (31.0-36.0); Mean Corpuscular Hemoglobin 29.4 pg (27.0-33.0); Mean Corpuscular Volume 87.1 fL (80.0-98.0); Mean Platelet Volume 8.6 fL (9.4-12.4); Platelet Count 200 X10*3/uL (160-400); Red Blood Count 2.72 X10*6/uL (4.60-5.80); Red Cell Distribution Width 17.2 % (11.0-16.0); White Blood Count 10.9 X10*3/uL (4.8-10.8)
[2024-09-20 07:47] VITALS: BP 125/62; PULSE 105; RESP 16; TEMP 36.5; O2SAT 97
[2024-09-20] MEDS: Omeprazole 20 MG CAPSULE.DR PO ×2 (08:36→17:09)
[2024-09-20] MEDS: dexAMETHasone 2 MG TABLET 3 MG PO (08:36)
[2024-09-20] MEDS: Sodium Bicarbonate 650 MG TABLET PO ×2 (08:37→21:33)
[2024-09-20] MEDS: Metoprolol Tartrate 12.5 MG HALFTAB PO ×2 (08:37→21:33)
[2024-09-20] MEDS: 0.9 % Sodium Chloride 1,000 ML 100 ML IVCONT (08:38)
[2024-09-20] MEDS: polyethylene glycoL 3350 17 GM POWD.PACK PO (08:38)
[2024-09-20] MEDS: levoFLOXacin/D5W 750 MG/150 ML PIGGYBACK 100 MG IV (08:38)
[2024-09-20] MEDS: amLODIPine Besylate 5 MG TABLET PO (08:38)
[2024-09-20] MEDS: 0.9 % Sodium Chloride Flush 3 ML SYRINGE IVFLUSH ×3 (08:39→21:33)
--- NOTE | 2024-09-20 11:30 | PC.NURSE ---
Patient had capped 24 Greek, 3 way Morales catheter in place, with urine and small clots. Discussed Morales with MD Marin at bedside, MD ordered to change Morales Catheter. RN reached out to MD Trevino via [employer] regarding Morales and discussed that RN can change Morales. Original Morales has about 25cc of water in balloon, balloon emptied completely before removing Morales. Morales removed with ease, cream colored discharge and blood on tip of catheter, urethra started having small bright red blood output. 18 Greek catheter inserted with ease and no resistance, balloon filled with 10cc. Bright red blood immediately flowed into catheter bag and oozing continues from urethra. MD Marin notified of catheter insertion via [employer]. and asked to update MD Trevino, MD Trevino notified via [employer] of Morales insertion with response should be off all anticoagulation , updated MD Marin regarding MD Trevino's message.
--- NOTE | 2024-09-20 12:21 | MHC.SL.SWA ---
Speech Pathologist Impression: Risk of Aspiration, Oropharyngeal Dysphagia Risk of Aspiration Due to: Medically Fragile Poor PO Intake Dysphasia Diet Status: No Change Liquid Consistency and Strategies for Safe Swallow: Liquid Intake Recommendation: Thin Liquid Intake Strategies: Small Sips No Straws Double Swallow Solid Food Consistency: Dietary Recommendations: Chopped/Advanced (NDD3) Oral Medication Intake: Whole with Puree Please contact the pharmacy regarding appropriate crushable or liquid drug formulations that are available whenever modified delivery is recommended. Compensatory Strategies and Precautions to be Taken for Safe Swallow: Sitting Upright (90 deg) Double Swallow Small Bites and Sips Alternate Liquids/Solids Rate of Ingestion Change Avoid Specific Foods Supervision While Eating and Drinking for Safe Swallow: Direct Supervision (1:1) Foods to Avoid: Mixed consistencies, overly tough, dry, or chewy foods Swallowing Recommended Treatments: Compens. Strategy Educat. Recommendation for Speech: Inpatient Speech Therapy Speech Therapy through Rehab Facility Comment: Recommend CHOPPED/ADVANCED (NDD3) diet with THIN liquids, pills WHOLE in PUREE. Patient is recommended standard aspiration precautions and strategies to promote oral and pharyngeal clearance: -take one sip at a time -AVOID straws -AVOID chain sipping -take one bite at a time -moisten foods with thick sauces/gravies -chew food well -alternate with sips of liquid -1-2 dry swallows after each bite/sip -AVOID mixed consistencies, overly dry or tough foods -maintain upright 90 degree position during PO intake and for at least 30 minutes afterwards ELEVATOR CONDUCTOR will follow daily M-F while patient is admitted as inpatient to monitor tolerance of PO, provide patient education and strategy training. Patient will likely need continued speech therapy after discharge. Frequency/Duration: Daily M-F Date Range for Service Req: Timeline to reassess: PRN Mock Up Builder Clinican/Clinical Fellow: No Supervisory Statement: I have reviewed and agree with the student/clinical fellow's documentation: N/A Speech Language Pathologist: Delores Hamilton M.S., [facility]-ELEVATOR CONDUCTOR
--- NOTE | 2024-09-20 12:22 | P.PNIM_ITS ---
Subjective Subjective Date of Service: 09/20/24 Interval History: denies pain or dyspnea SCr same 3-way catheter removed by RN, tip bloody with thick creamy discharge; blood from urethra new Morales placed, draining bloody urine Review of Systems Review of Systems: Yes all other systems are reviewed and are negative Physical Exam 2 Vital Signs: Vital Signs: Last Vital Signs Temp 97.7 F 09/20/24 07:47 Pulse 105 H 09/20/24 07:47 Resp 16 09/20/24 07:47 BP 125/62 09/20/24 07:47 Pulse Ox 97 09/20/24 07:47 O2 Del Method Room Air 09/20/24 07:47 BMI result Body Mass Index 28.5 Gen: in no acute distress HEENT: sclera anicteric, moist mucus membranes Neck: supple Lungs: clear to auscultation bilaterally Heart: regular rate and rhythm, no murmurs Abd: soft, non-tender, non-distended Ext: 2+ bilateral leg edema Skin: warm/well-perfused Neuro: alert and oriented x3, no focal findings Psych: appropriate affect Objective Data Active Medications Acetaminophen (Acetaminophen 325 Mg Tablet) 650 mg PO Q6H PRN PRN Reason: Pain, Mild 1-3,fever,headache Al Hydroxide/Mg Hydroxide (Magnesium Hydrox/Alum Hydrox 30 Ml Oral.Susp) 30 ml PO Q6H PRN PRN Reason: reflux Amlodipine Besylate (Amlodipine Besylate 5 Mg Tablet) 5 mg PO DAILY [facility]; Protocol Last Admin: 09/20/24 08:38 Dose: 5 mg Documented By: DAYTON Bisacodyl (Bisacodyl 10 Mg Supp.Rect) 10 mg [place] DAILY PRN PRN Reason: Constipation Dexamethasone (Dexamethasone 2 Mg Tablet) 3 mg PO DAILY [facility] Stop: 09/23/24 09:01 Last Admin: 09/20/24 08:36 Dose: 3 mg Documented By: DAYTON Dexamethasone (Dexamethasone 2 Mg Tablet) 2 mg PO DAILY [facility] Stop: 10/01/24 08:59 Heparin Sodium (Porcine) (Heparin Sodium,Porcine 5,000 Unit/Ml Vial) 5,000 unit SUBCUT Q12H [facility] Last Admin: 09/19/24 20:43 Dose: 5,000 unit Documented By: JUANI Sodium Chloride (Ns) 1,000 mls @ 100 mls/hr IVCONT .Q10H [facility] Last Admin: 09/20/24 08:38 Dose: 100 mls/hr Documented By: DAYTON Levofloxacin (Levaquin) 500 mg in 100 mls @ 100 mls/hr IV Q48H [facility] Magnesium Hydroxide (Milk Of Magnesia 30 Ml Oral.Susp) 30 ml PO DAILY PRN PRN Reason: Constipation Melatonin (Melatonin 3 Mg Tablet) 6 mg PO BEDTIME PRN PRN Reason: Insomnia Metoprolol Tartrate (Metoprolol Tartrate 12.5 Mg Halftab) 12.5 mg PO BID [facility]; Protocol Last Admin: 09/20/24 08:37 Dose: 12.5 mg Documented By: DAYTON Omeprazole (Omeprazole 20 Mg Capsule.Dr) 20 mg PO BID@0630,1630 [facility] Last Admin: 09/20/24 08:36 Dose: 20 mg Documented By: DAYTON Ondansetron HCl (Ondansetron Hcl 4 Mg/2 Ml Vial) 4 mg IVPUSH Q8H PRN PRN Reason: Nausea and Vomiting Last Admin: 09/20/24 03:13 Dose: 4 mg Documented By: JUANI Polyethylene Glycol (Polyethylene Glycol 3350 17 Gm Powd.Pack) 17 gm PO DAILY [facility] Last Admin: 09/20/24 08:38 Dose: 17 gm Documented By: DAYTON Sodium Bicarbonate (Sodium Bicarbonate 650 Mg Tablet) 650 mg PO BID [facility] Last Admin: 09/20/24 08:37 Dose: 650 mg Documented By: DAYTON Sodium Chloride (0.9 % Sodium Chloride Flush 3 Ml Syringe) 3 ml IVFLUSH QSHIFT [facility] Last Admin: 09/20/24 08:39 Dose: 3 ml Documented By: DAYTON Trazodone HCl (Trazodone Hcl 50 Mg Tablet) 50 mg PO BEDTIME [facility] Last Admin: 09/19/24 20:43 Dose: 50 mg Documented By: JUANI Labs 09/20/24 05:34 09/20/24 05:34 Labs: Laboratory Results - last 24 hr 09/20/24 05:34 MCV 87.1 MCH 29.4 MCHC 33.8 RDW 17.2 H Plt Count 200 MPV 8.6 L Absolute Nucleated RBC 0.000 Nucleated RBC % (auto) 0.0 Anion Gap 17 Estim Creat Clear Calc 17.9 Estimated GFR 16 Random Glucose 87 Calcium 12.3 H D Assessment and Plan (1) Acute kidney injury superimposed on CKD: Status: Acute Plan d5 for 79yo M from [facility] where he was undergoing STR, with 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, sent in with increasing fatigue, weakness, and confusion; found to have MARYSE and UTI sepsis due to complicated polymicrobial UTI - ceftriaxone 09/16-09/19, BCx negative, per Urology changed to levofloxacin 09/18- as per [facility] PCR report 09/06 growing Enterococcus faecalis, Klebsiella aerogenes, and Raoultella ornithinolytica, of which all are susceptible to quinolone hematuria - Morales replaced, hold heparin acute encephalopathy due to infection - resolving MARYSE NAGMA - suspect due to hypovolemia vs tubular injury - started PO bicarbonate - Nephrology consulted + following - will give IV normal saline, recheck SCr in AM hyperCa of malignancy - on dexamethasone taper per last admission: vitamin D3 levels were 94 suggestive of increase 1 alpha hydroxylase activity possibly secondary to underlying malignancy, likely lymphomas. PTH levels are low secondary to hypercalcemia. CT scan of chest abdomen and pelvis did not show any bony metastasis. Patient had biopsy of the retroperitoneal mass which is still pending. Although the actual treatment is to treat the cancer per se, in the meantime we started the patient on dexamethasone 4 mg daily to decrease the 1 alpha hydroxylase activity, we will taper dexamethasone by 1 mg every week. anemia of chronic disease - H+H stable dysphagia - MBSS done 09/17, per [employer]: very slow oral phase and compromised airway protection. Trace penetration seen intermittently with thin liquid and mixed media (puree with liquid). No evidence of aspiration. Moderate pharyngeal retention partially cleared with strategies. Once cleared to advance from Full Liquids, recc start on CHOPPED/ADVANCED (NDD3) solids and THIN liquids, pills WHOLE in PUREE, ' undifferentiated metastatic CA - Oncology consulted, final pathology still pending immunostains HTN - continue amlodipine + metoprolol tartrate VTE ppx - SCDs, hold UFH due to hematuria dispo - eventual return to SNF In my clinical judgment, the patient requires continued inpatient hospitalization for the following reasons: MARYSE, hematuria Total time managing care of this patient today: 35 minutes. Quality Stroke Does the patient have a stroke diagnosis?: No VTE Prior VTE?: No VTE Risk Level:: Medical - moderate - high VTE Device Contraindication: N/A - Device Ordered VTE Drug Contraindication: N/A - Med Ordered
--- NOTE | 2024-09-20 12:39 | MHC.CM.PN ---
Per MD rounds patient not medically cleared for dc. [facility] going for auth in anticipation of weekend dc.
--- NOTE | 2024-09-20 13:43 | P.PNNP_ITS ---
Subjective Subjective Date of Service: 09/20/24 Interval history: Events noted Gross hematuria Physical Exam 2 Vital Signs: Vital Signs: Last Vital Signs Temp 97.7 F 09/20/24 07:47 Pulse 105 H 09/20/24 07:47 Resp 16 09/20/24 07:47 BP 125/62 09/20/24 07:47 Pulse Ox 97 09/20/24 07:47 O2 Del Method Room Air 09/20/24 07:47 BMI result Body Mass Index 28.5 Const: General: no acute distress Eyes: EOM: EOMs intact bilaterally Neck: Neck: Yes supple Resp: Auscultation: diminished lung sounds Cardio: Rate: regular rate GI: Palpation (GI): Soft to palpation Neuro: General: moves all extremities Objective Data Labs 09/20/24 05:34 09/20/24 05:34 Labs: Laboratory Results - last 24 hr 09/20/24 05:34 WBC 10.9 H RBC 2.72 L Hgb 8.0 L Hct 23.7 L MCV 87.1 MCH 29.4 MCHC 33.8 RDW 17.2 H Plt Count 200 MPV 8.6 L Absolute Nucleated RBC 0.000 Nucleated RBC % (auto) 0.0 Sodium 137 Potassium 5.1 Chloride 107 Carbon Dioxide 18 L Anion Gap 17 BUN 96 H Creatinine 3.60 H Estim Creat Clear Calc 17.9 Estimated GFR 16 Random Glucose 87 Calcium 12.3 H D Microbiology Microbiology Results: Microbiology 09/16/24 11:52 Blood - Venous Blood Culture - Preliminary No growth after 48 hours. 09/16/24 11:35 Blood - Venous Blood Culture - Preliminary No growth after 48 hours. 09/16/24 Unknown Urine Catheterized - Morales Catheter Urine Culture - Final Klebsiella aerogenes Procedures Date of Service Date of Service: 09/20/24 Assessment & Plan Assessment and plan (1) Acute kidney injury superimposed on CKD: Status: Acute Plan Has CKD 3 at baseline; MARYSE likely due to tubular injury Serum creatinine is better; Metabolically acidotic on NaHCO3 for metabolic acidosis No indication for renal replacement Watch H/H Hypercalcemia PTH is low Vit D elevated Check PTHrP Time Spent With Patient Time: Total time managing care of this patient today ____ minutes. Progress Note: Quality Stroke Does the patient have a stroke diagnosis?: No
[2024-09-20 14:18] VITALS: BP 125/62; PULSE 105; O2SAT 97
[2024-09-20 16:00] VITALS: BP 114/60; PULSE 94; RESP 18; TEMP 36.7; O2SAT 97
--- NOTE | 2024-09-20 16:16 | PC.NURSE ---
Spoke to MD Marin in person regarding bloody urine output, output amount and scrotal edema. Bladder scan performed. Scrotum elevated. No orders for irrigation at this time.
[2024-09-20 17:09] VITALS: BP 124/62
[2024-09-20] MEDS: Furosemide 40 MG/4 ML VIAL IVPUSH (17:09)
[2024-09-20 19:15] VITALS: BP 119/62; PULSE 102; RESP 18; TEMP 36.9; O2SAT 98
[2024-09-20] MEDS: traZODone HCL 50 MG TABLET PO (21:33)
[2024-09-21 04:00] VITALS: BP 107/57; PULSE 102; RESP 18; TEMP 36.2; O2SAT 97
[2024-09-21] MEDS: Omeprazole 20 MG CAPSULE.DR PO ×2 (06:25→16:21)
[2024-09-21 06:52] VITALS: BP 100/58; PULSE 110; RESP 16; TEMP 36.6; O2SAT 95
[2024-09-21 08:00] LABS: Hematocrit 24.8 % (42.0-52.0); Hemoglobin 8.1 g/dl (14.0-18.0); Mean Corpuscular HGB Conc 32.7 g/dl (31.0-36.0); Mean Corpuscular Hemoglobin 28.4 pg (27.0-33.0); Mean Platelet Volume 8.9 fL (9.4-12.4); Platelet Count 209 X10*3/uL (160-400); Red Blood Count 2.85 X10*6/uL (4.60-5.80); Red Cell Distribution Width 17.4 % (11.0-16.0); White Blood Count 12.4 X10*3/uL (4.8-10.8)
[2024-09-21 08:15] LABS: Anion Gap 17 (12-20); Blood Urea Nitrogen 103 mg/dL (9-16); Calcium 11.9 mg/dL (8.4-10.2); Carbon Dioxide 16 mmol/L (22-29); Chloride 106 mmol/L (96-108); Creatinine Clr Calc Pharmacy 16.8; Estimated Glomerular Filt Rate 15; Glucose Random 105 mg/dL (60-115); Potassium 5.1 mmol/L (3.3-5.1); Sodium 134 mmol/L (135-145)
[2024-09-21 08:52] LABS: Vitamin B12 644 pg/mL (200-900)
[2024-09-21] MEDS: amLODIPine Besylate 5 MG TABLET PO (09:07)
[2024-09-21] MEDS: Sodium Bicarbonate 650 MG TABLET PO ×2 (09:08→22:46)
[2024-09-21] MEDS: Metoprolol Tartrate 12.5 MG HALFTAB PO ×2 (09:08→22:46)
[2024-09-21] MEDS: dexAMETHasone 2 MG TABLET 3 MG PO (09:08)
[2024-09-21] MEDS: Furosemide 40 MG/4 ML VIAL IVPUSH ×2 (09:11→17:53)
[2024-09-21] MEDS: 0.9 % Sodium Chloride Flush 3 ML SYRINGE IVFLUSH ×3 (09:12→22:48)
--- NOTE | 2024-09-21 11:06 | HO.PM.IMPN ---
Subjective Subjective Date of Service: 09/21/24 Interval History: denies pain still having gross hematuria without clots weak Review of Systems Review of Systems: Yes all other systems are reviewed and are negative Physical Exam Vital Signs: Vital Signs: Last Vital Signs Temp 98 F 09/21/24 06:52 Pulse 110 H 09/21/24 06:52 Resp 16 09/21/24 06:52 BP 100/58 L 09/21/24 06:52 Pulse Ox 95 09/21/24 06:52 O2 Del Method Room Air 09/21/24 06:52 BMI result Body Mass Index 28.5 Gen: in no acute distress HEENT: sclera anicteric, moist mucus membranes Neck: supple Lungs: clear to auscultation bilaterally Heart: regular rate and rhythm, no murmurs Abd: soft, non-tender, non-distended : Morales with grossly bloody urine Ext: 2+ bilateral leg edema Skin: warm/well-perfused Neuro: alert and oriented x3, no focal findings Psych: appropriate affect Objective Data Active Medications Acetaminophen (Acetaminophen 325 Mg Tablet) 650 mg PO Q6H PRN PRN Reason: Pain, Mild 1-3,fever,headache Al Hydroxide/Mg Hydroxide (Magnesium Hydrox/Alum Hydrox 30 Ml Oral.Susp) 30 ml PO Q6H PRN PRN Reason: reflux Amlodipine Besylate (Amlodipine Besylate 5 Mg Tablet) 5 mg PO DAILY [facility]; Protocol Last Admin: 09/21/24 09:07 Dose: 5 mg Documented By: RAMON Bisacodyl (Bisacodyl 10 Mg Supp.Rect) 10 mg [place] DAILY PRN PRN Reason: Constipation Dexamethasone (Dexamethasone 2 Mg Tablet) 3 mg PO DAILY [facility] Stop: 09/23/24 09:01 Last Admin: 09/21/24 09:08 Dose: 3 mg Documented By: RAMON Dexamethasone (Dexamethasone 2 Mg Tablet) 2 mg PO DAILY [facility] Stop: 10/01/24 08:59 Furosemide (Furosemide 40 Mg/4 Ml Vial) 40 mg IVPUSH DAILY [facility]; Protocol Last Admin: 09/21/24 09:11 Dose: 40 mg Documented By: RAMON Heparin Sodium (Porcine) (Heparin Sodium,Porcine 5,000 Unit/Ml Vial) 5,000 unit SUBCUT Q12H [facility] Last Admin: 09/20/24 13:33 Dose: Not Given Documented By: DAYTON Non-Admin Reason: Physician Held Med Levofloxacin (Levaquin) 500 mg in 100 mls @ 100 mls/hr IV Q48H [facility] Magnesium Hydroxide (Milk Of Magnesia 30 Ml Oral.Susp) 30 ml PO DAILY PRN PRN Reason: Constipation Melatonin (Melatonin 3 Mg Tablet) 6 mg PO BEDTIME PRN PRN Reason: Insomnia Metoprolol Tartrate (Metoprolol Tartrate 12.5 Mg Halftab) 12.5 mg PO BID [facility]; Protocol Last Admin: 09/21/24 09:08 Dose: 12.5 mg Documented By: RAMON Omeprazole (Omeprazole 20 Mg Capsule.Dr) 20 mg PO BID@0630,1630 [facility] Last Admin: 09/21/24 06:25 Dose: 20 mg Documented By: JUANI Ondansetron HCl (Ondansetron Hcl 4 Mg/2 Ml Vial) 4 mg IVPUSH Q8H PRN PRN Reason: Nausea and Vomiting Last Admin: 09/20/24 03:13 Dose: 4 mg Documented By: JUANI Polyethylene Glycol (Polyethylene Glycol 3350 17 Gm Powd.Pack) 17 gm PO DAILY [facility] Last Admin: 09/21/24 09:09 Dose: Not Given Documented By: RAMON Non-Admin Reason: Patient Refused Sodium Bicarbonate (Sodium Bicarbonate 650 Mg Tablet) 650 mg PO BID [facility] Last Admin: 09/21/24 09:08 Dose: 650 mg Documented By: RAMON Sodium Chloride (0.9 % Sodium Chloride Flush 3 Ml Syringe) 3 ml IVFLUSH QSHIFT [facility] Last Admin: 09/21/24 09:12 Dose: 3 ml Documented By: RAMON Trazodone HCl (Trazodone Hcl 50 Mg Tablet) 50 mg PO BEDTIME [facility] Last Admin: 09/20/24 21:33 Dose: 50 mg Documented By: JUANI Labs 09/21/24 07:17 09/21/24 07:17 Labs: Laboratory Results - last 24 hr 09/21/24 07:17 MCV 87.0 MCH 28.4 MCHC 32.7 RDW 17.4 H Plt Count 209 MPV 8.9 L Absolute Nucleated RBC 0.000 Nucleated RBC % (auto) 0.0 Anion Gap 17 Estim Creat Clear Calc 16.8 Estimated GFR 15 Random Glucose 105 Calcium 11.9 H Vitamin B12 644 Folate 5.0 Assessment and Plan (1) Acute kidney injury superimposed on CKD: Status: Acute Plan d6 for 79yo M from [facility] where he was undergoing STR, with 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, sent in with increasing fatigue, weakness, and confusion; found to have MARYSE and UTI biopsy of retroperitoneal mass nondiagnostic sepsis due to complicated polymicrobial UTI - ceftriaxone 09/16-09/19, BCx negative, per Urology changed to levofloxacin 09/18- as per [employer] PCR report 09/06 growing Enterococcus faecalis, Klebsiella aerogenes, and Raoultella ornithinolytica, of which all are susceptible to quinolone hematuria - Morales replaced, hold heparin, per Urology no CBI unless clots form acute encephalopathy due to infection - resolving MARYSE NAGMA - suspect due to hypovolemia vs tubular injury - started PO bicarbonate - Nephrology consulted + following - recheck SCr in AM hyperCa of malignancy - s/p 120 mg denosmab 09/09, 90 mg pamidronate 09/03 - on dexamethasone taper per last admission: vitamin D3 levels were 94 suggestive of increase 1 alpha hydroxylase activity possibly secondary to underlying malignancy, likely lymphomas. PTH levels are low secondary to hypercalcemia. CT scan of chest abdomen and pelvis did not show any bony metastasis. Patient had biopsy of the retroperitoneal mass which is still pending. Although the actual treatment is to treat the cancer per se, in the meantime we started the patient on dexamethasone 4 mg daily to decrease the 1 alpha hydroxylase activity, we will taper dexamethasone by 1 mg every week. - furosemide per Nephrology to provoke calciuresis undifferentiated metastatic CA - discussed with Oncology. Pathology inconclusive due to extensive tumor necrosis, PDL-1 and MSI stains pending but unlikely to be conclusive. Repeat biopsy recommended. Best option would be one of the 2 cm lung nodules noted on CT chest 09/04/24 - discussed with pt and his daughter Misty. He wishes to proceed with biopsy after review of the risks/benefits and the alternative of hospice. He is aware that the cancer is incurable but that chemotherapy might prolong his life at the expense of quality of life. Will order CT-guided biopsy for Monday anemia of chronic disease - H+H stable dysphagia - MBSS done 09/17, per [employer]: very slow oral phase and compromised airway protection. Trace penetration seen intermittently with thin liquid and mixed media (puree with liquid). No evidence of aspiration. Moderate pharyngeal retention partially cleared with strategies. Once cleared to advance from Full Liquids, recc start on CHOPPED/ADVANCED (NDD3) solids and THIN liquids, pills WHOLE in PUREE HTN - continue amlodipine + metoprolol tartrate VTE ppx - SCDs, hold UFH due to hematuria dispo - eventual return to SNF In my clinical judgment, the patient requires continued inpatient hospitalization for the following reasons: MARYSE, hematuria, biopsy of undifferentiated cancer Total time managing care of this patient today: 45 minutes. Quality Stroke Does the patient have a stroke diagnosis?: No VTE Prior VTE?: No VTE Risk Level:: Medical - moderate - high VTE Device Contraindication: N/A - Device Ordered VTE Drug Contraindication: N/A - Med Ordered
[2024-09-21 15:16] VITALS: BP 96/54; PULSE 100; RESP 18; TEMP 36.8; O2SAT 95
[2024-09-21 20:00] VITALS: BP 105/59; PULSE 105
[2024-09-21] MEDS: traZODone HCL 50 MG TABLET PO (22:46)
[2024-09-21 22:55] VITALS: RESP 16; TEMP 36.3; O2SAT 96
[2024-09-22 04:00] VITALS: BP 108/60; PULSE 99; RESP 18; TEMP 36.5; O2SAT 98
[2024-09-22] MEDS: Omeprazole 20 MG CAPSULE.DR PO ×2 (05:20→17:03)
[2024-09-22 05:58] LABS: Hematocrit 26.3 % (42.0-52.0); Hemoglobin 8.6 g/dl (14.0-18.0); Mean Corpuscular HGB Conc 32.7 g/dl (31.0-36.0); Mean Corpuscular Hemoglobin 28.8 pg (27.0-33.0); Mean Platelet Volume 8.4 fL (9.4-12.4); Platelet Count 193 X10*3/uL (160-400); Red Blood Count 2.99 X10*6/uL (4.60-5.80); Red Cell Distribution Width 17.8 % (11.0-16.0); White Blood Count 13.2 X10*3/uL (4.8-10.8)
[2024-09-22 06:00] LABS: INTERNATIONAL NORM RATIO 1.3 (0.9-1.1); Prothrombin Time 14.8 SEC (10.9-12.4)
[2024-09-22 06:19] LABS: Anion Gap 21 (12-20); Blood Urea Nitrogen 113 mg/dL (9-16); Calcium 11.9 mg/dL (8.4-10.2); Carbon Dioxide 16 mmol/L (22-29); Chloride 105 mmol/L (96-108); Creatinine Clr Calc Pharmacy 15.5; Estimated Glomerular Filt Rate 14; Glucose Random 102 mg/dL (60-115); Potassium 5.7 mmol/L (3.3-5.1); Sodium 136 mmol/L (135-145)
[2024-09-22 06:24] LABS: Partial Thromboplastin Time 19.4 SEC (26.0-36.8)
[2024-09-22 07:03] VITALS: BP 120/62; PULSE 90; RESP 17; TEMP 36.6; O2SAT 97
[2024-09-22 07:46] LABS: Lactate Dehydrogenase 777 U/L (118-273); Phosphorus 6.1 mg/dL (2.7-4.5); Uric Acid 14.2 mg/dL (3.4-7.0)
[2024-09-22] MEDS: Sodium Zirconium Cyclosilicate 5 GM POWD.PACK PO (07:51)
[2024-09-22] MEDS: 0.9 % Sodium Chloride Flush 3 ML SYRINGE IVFLUSH ×2 (07:52→20:28)
[2024-09-22] MEDS: Sodium Bicarbonate 650 MG TABLET PO ×2 (08:14→20:28)
[2024-09-22] MEDS: Metoprolol Tartrate 12.5 MG HALFTAB PO ×2 (08:14→20:28)
[2024-09-22] MEDS: amLODIPine Besylate 5 MG TABLET PO (08:14)
[2024-09-22] MEDS: dexAMETHasone 2 MG TABLET 3 MG PO (08:16)
[2024-09-22] MEDS: Furosemide 40 MG/4 ML VIAL IVPUSH (08:22)
[2024-09-22] MEDS: levoFLOXacin/D5W 500 MG/100 ML PIGGYBACK 100 MG IV (08:22)
[2024-09-22] MEDS: 0.9 % Sodium Chloride 1,000 ML 125 ML IVCONT ×2 (09:59→17:04)
[2024-09-22] MEDS: allopurinoL 100 MG TABLET 50 MG PO (10:02)
--- NOTE | 2024-09-22 10:02 | P.PNIM_ITS ---
Subjective Subjective Date of Service: 09/22/24 Interval History: feels about the same but SCr/K worse and PO4/uric acid/LDH elevated reflux resolved hematuria resolving Review of Systems Review of Systems: Yes all other systems are reviewed and are negative Physical Exam 2 Vital Signs: Vital Signs: Last Vital Signs Temp 98 F 09/22/24 07:03 Pulse 90 09/22/24 07:03 Resp 17 09/22/24 07:03 BP 120/62 09/22/24 07:03 Pulse Ox 97 09/22/24 07:03 O2 Del Method Room Air 09/22/24 07:03 BMI result Body Mass Index 28.5 Gen: in no acute distress but chronically ill/weak-appearing HEENT: sclera anicteric, moist mucus membranes Neck: supple Lungs: clear to auscultation bilaterally Heart: regular rate and rhythm, no murmurs Abd: soft, non-tender, non-distended : Morales with pink urine Ext: 2+ bilateral leg edema Skin: warm/well-perfused Neuro: alert and oriented x3, no focal findings Psych: appropriate affect Objective Data Active Medications Acetaminophen (Acetaminophen 325 Mg Tablet) 650 mg PO Q6H PRN PRN Reason: Pain, Mild 1-3,fever,headache Al Hydroxide/Mg Hydroxide (Magnesium Hydrox/Alum Hydrox 30 Ml Oral.Susp) 30 ml PO Q6H PRN PRN Reason: reflux Allopurinol (Allopurinol 100 Mg Tablet) 50 mg PO DAILY [facility] Amlodipine Besylate (Amlodipine Besylate 5 Mg Tablet) 5 mg PO DAILY [facility]; Protocol Last Admin: 09/22/24 08:14 Dose: 5 mg Documented By: RAMON Bisacodyl (Bisacodyl 10 Mg Supp.Rect) 10 mg [place] DAILY PRN PRN Reason: Constipation Dexamethasone (Dexamethasone 2 Mg Tablet) 3 mg PO DAILY [facility] Stop: 09/23/24 09:01 Last Admin: 09/22/24 08:16 Dose: 3 mg Documented By: RAMON Dexamethasone (Dexamethasone 2 Mg Tablet) 2 mg PO DAILY [facility] Stop: 10/01/24 08:59 Heparin Sodium (Porcine) (Heparin Sodium,Porcine 5,000 Unit/Ml Vial) 5,000 unit SUBCUT Q12H [facility] Last Admin: 09/20/24 13:33 Dose: Not Given Documented By: DAYTON Non-Admin Reason: Physician Held Med Levofloxacin (Levaquin) 500 mg in 100 mls @ 100 mls/hr IV Q48H [facility] Last Infusion: 09/22/24 09:45 Dose: Infused Documented By: RAMON Sodium Chloride (Ns) 1,000 mls @ 125 mls/hr IVCONT .Q8H [facility] Last Admin: 09/22/24 09:59 Dose: 125 mls/hr Documented By: RAMON Rasburicase 12 mg/ Sodium (Chloride) 50 mls @ 100 mls/hr IV ONCE ONE Stop: 09/22/24 12:29 Magnesium Hydroxide (Milk Of Magnesia 30 Ml Oral.Susp) 30 ml PO DAILY PRN PRN Reason: Constipation Melatonin (Melatonin 3 Mg Tablet) 6 mg PO BEDTIME PRN PRN Reason: Insomnia Metoprolol Tartrate (Metoprolol Tartrate 12.5 Mg Halftab) 12.5 mg PO BID [facility]; Protocol Last Admin: 09/22/24 08:14 Dose: 12.5 mg Documented By: RAMON Omeprazole (Omeprazole 20 Mg Capsule.Dr) 20 mg PO BID@0630,1630 [facility] Last Admin: 09/22/24 05:20 Dose: 20 mg Documented By: YESIKA Ondansetron HCl (Ondansetron Hcl 4 Mg/2 Ml Vial) 4 mg IVPUSH Q8H PRN PRN Reason: Nausea and Vomiting Last Admin: 09/20/24 03:13 Dose: 4 mg Documented By: LAN-BREANA Polyethylene Glycol (Polyethylene Glycol 3350 17 Gm Powd.Pack) 17 gm PO DAILY [facility] Last Admin: 09/22/24 08:22 Dose: Not Given Documented By: RAMON Non-Admin Reason: Patient Refused Sodium Bicarbonate (Sodium Bicarbonate 650 Mg Tablet) 650 mg PO BID [facility] Last Admin: 09/22/24 08:14 Dose: 650 mg Documented By: RAMON Sodium Chloride (0.9 % Sodium Chloride Flush 3 Ml Syringe) 3 ml IVFLUSH QSHIFT [facility] Last Admin: 09/22/24 07:52 Dose: 3 ml Documented By: RAMON Trazodone HCl (Trazodone Hcl 50 Mg Tablet) 50 mg PO BEDTIME [facility] Last Admin: 09/21/24 22:46 Dose: 50 mg Documented By: PETEY Labs 09/22/24 05:37 09/22/24 05:36 Labs: Laboratory Results - last 24 hr 09/22/24 09/22/24 05:36 05:37 MCV 88.0 MCH 28.8 MCHC 32.7 RDW 17.8 H Plt Count 193 MPV 8.4 L Absolute Nucleated RBC 0.000 Nucleated RBC % (auto) 0.0 PT 14.8 H INR 1.3 H APTT 19.4 L Anion Gap 21 H Estim Creat Clear Calc 15.5 Estimated GFR 14 Random Glucose 102 Uric Acid 14.2 H Calcium 11.9 H Phosphorus 6.1 H Lactate Dehydrogenase 777 H Microbiology Microbiology Results: Microbiology 09/16/24 11:52 Blood Culture - Final Blood - Venous No growth after 5 days. 09/16/24 11:35 Blood Culture - Final Blood - Venous No growth after 5 days. Assessment and Plan (1) Acute kidney injury superimposed on CKD: Status: Acute Plan d6 for 79yo M from 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 Pathology inconclusive due to extensive tumor necrosis, PDL-1 and MSI stains pending but unlikely to be conclusive. Repeat biopsy recommended. Best option would be one of the 2 cm lung nodules noted on CT chest 09/04/24. Possibilities include renal carcinoma and lymphoma, others as well - Plan CT-guided biopsy of lung nodule tomorrow; NPO after midnight suspected tumor lysis syndrome - discussed with Nephrology. Will start IV normal saline and give renally- dosed allopurinol 50 mg daily and rasburicase; recheck TLS labs tomorrow MARYSE NAGMA - suspect due to hypovolemia vs tubular injury/TLS - started PO bicarbonate - Nephrology consulted + following - recheck SCr in AM hyperK - will give 1 dose Lokelma and treat for TLS as above hyperCa of malignancy - s/p 120 mg denosmab 09/09, 90 mg pamidronate 09/03 - on dexamethasone taper per last admission: vitamin D3 levels were 94 suggestive of increase 1 alpha hydroxylase activity possibly secondary to underlying malignancy, likely lymphomas. PTH levels are low secondary to hypercalcemia. CT scan of chest abdomen and pelvis did not show any bony metastasis. Patient had biopsy of the retroperitoneal mass which is still pending. Although the actual treatment is to treat the cancer per se, in the meantime we started the patient on dexamethasone 4 mg daily to decrease the 1 alpha hydroxylase activity, we will taper dexamethasone by 1 mg every week. sepsis due to complicated polymicrobial UTI - ceftriaxone 09/16-09/19, BCx negative, per Urology changed to levofloxacin 09/18- as per [facility] PCR report 09/06 growing Enterococcus faecalis, Klebsiella aerogenes, and Raoultella ornithinolytica, of which all are susceptible to quinolone hematuria - Morales replaced, hold heparin, per Urology no CBI unless clots form acute encephalopathy due to infection - resolved anemia of chronic disease - H+H stable dysphagia - MBSS done 09/17, per [employer]: very slow oral phase and compromised airway protection. Trace penetration seen intermittently with thin liquid and mixed media (puree with liquid). No evidence of aspiration. Moderate pharyngeal retention partially cleared with strategies. Once cleared to advance from Full Liquids, recc start on CHOPPED/ADVANCED (NDD3) solids and THIN liquids, pills WHOLE in PUREE HTN - continue amlodipine + metoprolol tartrate VTE ppx - SCDs, hold UFH due to hematuria dispo - eventual return to SNF In my clinical judgment, the patient requires continued inpatient hospitalization for the following reasons: MARYSE, TLS, biopsy of undifferentiated cancer Total time managing care of this patient today: 55 minutes. Quality Stroke Does the patient have a stroke diagnosis?: No VTE Prior VTE?: No VTE Risk Level:: Medical - moderate - high VTE Device Contraindication: N/A - Device Ordered VTE Drug Contraindication: N/A - Med Ordered
[2024-09-22] MEDS: SODIUM CHLORIDE 0.9% IV (12:53)
[2024-09-22] MEDS: RASBURICASE IV (12:53)
[2024-09-22 15:48] VITALS: BP 121/61; PULSE 68; RESP 18; TEMP 36.1; O2SAT 99
[2024-09-22 20:00] VITALS: BP 102/52; PULSE 97; RESP 18; TEMP 36.4; O2SAT 98
[2024-09-22] MEDS: traZODone HCL 50 MG TABLET PO (20:28)
[2024-09-23] VITALS (11 sets, daily range): BP systolic 96–111; BP diastolic 44–59; PULSE 94–104; RESP 16–24; TEMP 36.1–36.7; O2SAT 95–100; BMI 28.5
--- NOTE | 2024-09-23 | ECG_ITS ---
Test Reason : htn Blood Pressure : */* mmHG Vent. Rate : 96 BPM Atrial Rate : 96 BPM P-R Int : 150 ms QRS Dur : 90 ms QT Int : 322 ms P-R-T Axes : 24 -25 61 degrees QTcB Int : 406 ms Normal sinus rhythm Low voltage QRS Cannot rule out Anterior infarct (cited on or before 03-Sep-2024) Abnormal ECG When compared with ECG of 16-Sep-2024 10:25, Questionable change in initial forces of Septal leads Referred By: Reid Marin Electronically Signed By: LELA EVANS MD
[2024-09-23] MEDS: 0.9 % Sodium Chloride 1,000 ML 125 ML IVCONT ×3 (02:41→23:43)
[2024-09-23 06:53] LABS: Anion Gap 20 (12-20); Blood Urea Nitrogen 118 mg/dL (9-16); Calcium 11.8 mg/dL (8.4-10.2); Carbon Dioxide 15 mmol/L (22-29); Chloride 104 mmol/L (96-108); Glucose Random 94 mg/dL (60-115); Phosphorus 6.3 mg/dL (2.7-4.5); Sodium 133 mmol/L (135-145)
[2024-09-23 07:09] LABS: Creatinine Clr Calc Pharmacy 15.2; Estimated Glomerular Filt Rate 14; Potassium 6.2 mmol/L (3.3-5.1)
[2024-09-23 07:26] LABS: Uric Acid for Rasburicase 2.9 mg/dL
[2024-09-23 07:45] LABS: Alanine Aminotransferase 45 U/L (0-40); Albumin Level 3.2 g/dL (3.5-5.0); Alkaline Phosphatase 69 U/L (39-117); Aspartate Amino Transferase 99 U/L (5-37); Bilirubin Direct 0.1 mg/dL (0.0-0.5); Bilirubin Total 0.3 mg/dL (0.0-1.0); Lactate Dehydrogenase 968 U/L (118-273); Total Protein 5.3 g/dL (6.5-8.0)
[2024-09-23] MEDS: Albuterol Sulfate 7.5 MG, Albuterol Sulfate (0.083%) 2.5 MG 10 MG INHALE (07:45)
[2024-09-23] MEDS: allopurinoL 100 MG TABLET 50 MG PO (07:50)
[2024-09-23] MEDS: Metoprolol Tartrate 12.5 MG HALFTAB PO (07:50)
[2024-09-23] MEDS: dexAMETHasone 2 MG TABLET 3 MG PO (07:50)
[2024-09-23] MEDS: Dextrose 50 % 25 GM/50 ML SYRINGE IVPUSH (07:51)
[2024-09-23] MEDS: Sodium Bicarbonate 650 MG TABLET PO ×2 (07:51→21:13)
[2024-09-23] MEDS: Insulin Regular, Human 100 UNIT/ML 10 ML VIAL IVPUSH (07:51)
[2024-09-23] MEDS: Sodium Zirconium Cyclosilicate 10 GM POWD.PACK PO (07:51)
--- NOTE | 2024-09-23 09:30 | P.PNNP_ITS ---
Subjective Subjective Date of Service: 09/23/24 Interval history: 79 y/o male being followed for MARYSE on CKD3 significant LE edema at bedside today, pt states he feels weak and anxious about his biopsy today, otherwise no new complaints creatinine continues to trend up, hyperkalemia worsening Physical Exam 2 Vital Signs: Vital Signs: Last Vital Signs Temp 97.0 F 09/23/24 08:12 Pulse 95 09/23/24 08:24 Resp 16 09/23/24 08:24 BP 111/58 L 09/23/24 08:12 Pulse Ox 98 09/23/24 08:12 O2 Del Method Room Air 09/23/24 08:12 BMI result Body Mass Index 28.5 Const: General: no acute distress, alert and awake Resp: Effort & Inspection: normal respiratory effort and able to speak in complete sentences Auscultation: clear to auscultation bilaterally Cardio: Jugular venous distension: no JVD Rate: regular rate Rhythm: r egular rhythm Heart sounds: S1 normal heart sound present and S2 normal heart sound present GI: Palpation (GI): Soft to palpation and nontender Skin: Rashes: no rashes Extrem: General: Yes edema (+4 BLE edema) Objective Data Labs 09/23/24 10:48 09/23/24 10:48 Labs: Laboratory Results - last 24 hr 09/23/24 09/23/24 06:19 10:48 WBC 15.9 H RBC 3.09 L Hgb 8.9 L Hct 27.6 L MCV 89.3 MCH 28.8 MCHC 32.2 RDW 18.3 H Plt Count 188 MPV 8.6 L Absolute Nucleated RBC 0.000 Nucleated RBC % (auto) 0.0 Hold Purple Top SEE NOTE Sodium 133 L Potassium 6.2 H* Chloride 104 Carbon Dioxide 15 L Anion Gap 20 BUN 118 H Creatinine 4.24 H* Estim Creat Clear Calc 15.2 Estimated GFR 14 Random Glucose 94 Calcium 11.8 H Phosphorus 6.3 H Total Bilirubin 0.3 Direct Bilirubin 0.1 AST 99 H ALT 45 H Alkaline Phosphatase 69 Lactate Dehydrogenase 968 H Total Protein 5.3 L Albumin 3.2 L Uric Pt Rasburicase 2.9 Microbiology Microbiology Results: Microbiology 09/16/24 11:52 Blood - Venous Blood Culture - Final No growth after 5 days. 09/16/24 11:35 Blood - Venous Blood Culture - Final No growth after 5 days. 09/16/24 Unknown Urine Catheterized - Morales Catheter Urine Culture - Final Klebsiella aerogenes Procedures Date of Service Date of Service: 09/23/24 Assessment & Plan Assessment and plan (1) Acute kidney injury superimposed on CKD: Status: Acute (2) Hyperkalemia: Status: Acute (3) Volume overload: Status: Acute Plan MARYSE on CKD3 likely tubular injury from TLS worsening metabolic acidosis, worsening fluid overload with significant BLE edema recommend renal replacement at this time given worsening renal function and worsening hypervolemia, hyperkalemia order in place for temporary HD catheter placement- will start HD once catheter placed continue renally-dosed allopurinol; pt received dose of rasburicase 09/22, recommend second dose this evening after HD. recommend daily electrolyte and renal function studies regular blood pressure checks, I&O monitoring continue supportive care, will continue to follow Discussed with Dr Nagy Time Spent With Patient Time: Total time managing care of this patient today ____ minutes. Progress Note: Quality Stroke Does the patient have a stroke diagnosis?: No
--- NOTE | 2024-09-23 10:35 | MHC.CM.PN ---
Per MD rounds patient not medically cleared for dc. Referrals updated. Per Anna, auth expires today. [facility] still following and may have a bed on dc. CM will continue to follow.
[2024-09-23 11:02] LABS: Hematocrit 27.6 % (42.0-52.0); Hemoglobin 8.9 g/dl (14.0-18.0); Mean Corpuscular HGB Conc 32.2 g/dl (31.0-36.0); Mean Corpuscular Hemoglobin 28.8 pg (27.0-33.0); Mean Corpuscular Volume 89.3 fL (80.0-98.0); Mean Platelet Volume 8.6 fL (9.4-12.4); Platelet Count 188 X10*3/uL (160-400); Red Blood Count 3.09 X10*6/uL (4.60-5.80); Red Cell Distribution Width 18.3 % (11.0-16.0); White Blood Count 15.9 X10*3/uL (4.8-10.8)
[2024-09-23 11:21] LABS: Anion Gap 19 (12-20); Calcium 11.4 mg/dL (8.4-10.2); Carbon Dioxide 14 mmol/L (22-29); Chloride 106 mmol/L (96-108); Creatinine Clr Calc Pharmacy 15.6; Estimated Glomerular Filt Rate 14; Glucose Random 109 mg/dL (60-115); Potassium 5.3 mmol/L (3.3-5.1); Sodium 134 mmol/L (135-145)
[2024-09-23 11:29] LABS: Blood Urea Nitrogen 122 mg/dL (9-16)
--- NOTE | 2024-09-23 11:29 | HO.PM.IMPN ---
Subjective Subjective Date of Service: 09/23/24 Interval History: feels weak but denies pain some nausea SCr and K increased Review of Systems Review of Systems: Yes all other systems are reviewed and are negative Physical Exam Vital Signs: Vital Signs: Last Vital Signs Temp 97.0 F 09/23/24 08:12 Pulse 95 09/23/24 08:24 Resp 16 09/23/24 08:24 BP 111/58 L 09/23/24 08:12 Pulse Ox 98 09/23/24 08:12 O2 Del Method Room Air 09/23/24 08:12 BMI result Body Mass Index 28.5 Gen: in no acute distress but chronically ill/weak-appearing HEENT: sclera anicteric, moist mucus membranes Neck: supple Lungs: clear to auscultation bilaterally Heart: regular rate and rhythm, no murmurs Abd: soft, non-tender, non-distended : Morales with blood tinged urine Ext: 2+ bilateral leg edema Skin: warm/well-perfused Neuro: alert and oriented x3, no focal findings Psych: appropriate affect Objective Data Active Medications Acetaminophen (Acetaminophen 325 Mg Tablet) 650 mg PO Q6H PRN PRN Reason: Pain, Mild 1-3,fever,headache Al Hydroxide/Mg Hydroxide (Magnesium Hydrox/Alum Hydrox 30 Ml Oral.Susp) 30 ml PO Q6H PRN PRN Reason: reflux Allopurinol (Allopurinol 100 Mg Tablet) 50 mg PO DAILY [facility] Last Admin: 09/23/24 07:50 Dose: 50 mg Documented By: JERZY Comments: Amlodipine Besylate (Amlodipine Besylate 5 Mg Tablet) 5 mg PO DAILY [facility]; Protocol Last Admin: 09/23/24 07:51 Dose: Not Given Documented By: JERZY Non-Admin Reason: b/p soft Bisacodyl (Bisacodyl 10 Mg Supp.Rect) 10 mg WA DAILY PRN PRN Reason: Constipation Dexamethasone (Dexamethasone 2 Mg Tablet) 2 mg PO DAILY [facility] Stop: 10/01/24 08:59 Heparin Sodium (Porcine) (Heparin Sodium,Porcine 5,000 Unit/Ml Vial) 5,000 unit SUBCUT Q12H [facility] Last Admin: 09/20/24 13:33 Dose: Not Given Documented By: DAYTON Non-Admin Reason: Physician Held Med Levofloxacin (Levaquin) 500 mg in 100 mls @ 100 mls/hr IV Q48H [facility] Last Infusion: 09/22/24 09:45 Dose: Infused Documented By: RAMON Sodium Chloride (Ns) 1,000 mls @ 125 mls/hr IVCONT .Q8H [facility] Last Admin: 09/23/24 02:41 Dose: 125 mls/hr Documented By: JIGAR Comments: late d/t previous bag still running Magnesium Hydroxide (Milk Of Magnesia 30 Ml Oral.Susp) 30 ml PO DAILY PRN PRN Reason: Constipation Melatonin (Melatonin 3 Mg Tablet) 6 mg PO BEDTIME PRN PRN Reason: Insomnia Metoprolol Tartrate (Metoprolol Tartrate 12.5 Mg Halftab) 12.5 mg PO BID [facility]; Protocol Last Admin: 09/23/24 07:50 Dose: 12.5 mg Documented By: JERZY Omeprazole (Omeprazole 20 Mg Capsule.Dr) 20 mg PO BID@0630,1630 [facility] Last Admin: 09/23/24 05:41 Dose: Not Given Documented By: JIGAR Non-Admin Reason: NPO Ondansetron HCl (Ondansetron Hcl 4 Mg/2 Ml Vial) 4 mg IVPUSH Q8H PRN PRN Reason: Nausea and Vomiting Last Admin: 09/20/24 03:13 Dose: 4 mg Documented By: JUANI Polyethylene Glycol (Polyethylene Glycol 3350 17 Gm Powd.Pack) 17 gm PO DAILY [facility] Last Admin: 09/22/24 08:22 Dose: Not Given Documented By: RAMON Non-Admin Reason: Patient Refused Sodium Bicarbonate (Sodium Bicarbonate 650 Mg Tablet) 650 mg PO BID [facility] Last Admin: 09/23/24 07:51 Dose: 650 mg Documented By: JERZY Sodium Chloride (0.9 % Sodium Chloride Flush 3 Ml Syringe) 3 ml IVFLUSH QSHIFT [facility] Last Admin: 09/23/24 08:40 Dose: Not Given Documented By: JERZY Non-Admin Reason: IV Running Sodium Zirconium Cyclosilicate (Sodium Zirconium Cyclosilicate 10 Gm Powd.Pack) 10 gm PO DAILY [facility] Trazodone HCl (Trazodone Hcl 50 Mg Tablet) 50 mg PO BEDTIME [facility] Last Admin: 09/22/24 20:28 Dose: 50 mg Documented By: JIGAR Labs 09/23/24 10:48 09/23/24 10:48 Labs: Laboratory Results - last 24 hr 09/23/24 09/23/24 06:19 10:48 MCV 89.3 MCH 28.8 MCHC 32.2 RDW 18.3 H Plt Count 188 MPV 8.6 L Absolute Nucleated RBC 0.000 Nucleated RBC % (auto) 0.0 Hold Purple Top SEE NOTE Anion Gap 20 19 Estim Creat Clear Calc 15.2 15.6 Estimated GFR 14 14 Random Glucose 94 109 Calcium 11.8 H 11.4 H Phosphorus 6.3 H Total Bilirubin 0.3 Direct Bilirubin 0.1 AST 99 H ALT 45 H Alkaline Phosphatase 69 Lactate Dehydrogenase 968 H Total Protein 5.3 L Albumin 3.2 L Uric Pt Rasburicase 2.9 Assessment and Plan (1) Acute kidney injury superimposed on CKD: Status: Acute Plan d7 for 79yo M from [facility] where he was undergoing STR, with 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, sent in with increasing fatigue, weakness, and confusion; found to have MARYSE and UTI biopsy of retroperitoneal mass nondiagnostic now with hyperK; suspect tumor lysis syndrome hyperK - no EKG changes; improved after insulin/D50, albuterol, and Kayexelate; discussed with Nephrology and pt and his family and he will undergo HD catheter placement today then HD TLS - got 12 mg rasburicause yesterday; on renally-dosed allopurinol; will give 0.2 mg/kg = 17.5 mg rasburicase today; monitor electrolytes daily MARYSE NAGMA - HD as above - suspect due to hypovolemia vs tubular injury/TLS - continue PO bicarbonate undifferentiated metastatic CA - discussed with Oncology. Pathology inconclusive due to extensive tumor necrosis, PDL-1 and MSI stains pending but unlikely to be conclusive. Repeat biopsy recommended. Best option would be one of the 2 cm lung nodules. Plan CT-guided biopsy of R lung nodule tomorrow noted on CT chest 09/04/24. Possibilities include renal carcinoma and lymphoma, others as well hyperCa of malignancy - s/p 120 mg denosmab 09/09, 90 mg pamidronate 09/03 - on dexamethasone taper per last admission: vitamin D3 levels were 94 suggestive of increase 1 alpha hydroxylase activity possibly secondary to underlying malignancy, likely lymphomas. PTH levels are low secondary to hypercalcemia. CT scan of chest abdomen and pelvis did not show any bony metastasis. Patient had biopsy of the retroperitoneal mass which is still pending. Although the actual treatment is to treat the cancer per se, in the meantime we started the patient on dexamethasone 4 mg daily to decrease the 1 alpha hydroxylase activity, we will taper dexamethasone by 1 mg every week. 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 Trace penetration seen intermittently with thin liquid and mixed media (puree with liquid). No evidence of aspiration. Moderate pharyngeal retention partially cleared with strategies. Once cleared to advance from Full Liquids, recc start on CHOPPED/ADVANCED (NDD3) solids and THIN liquids, pills WHOLE in PUREE HTN - continue amlodipine + metoprolol tartrate VTE ppx - SCDs, hold UFH due to hematuria and biopsies dispo - eventual return to SNF In my clinical judgment, the patient requires continued inpatient hospitalization for the following reasons: MARYSE requiring HD, TLS, biopsy of undifferentiated cancer Total time managing care of this patient today: 65 minutes. Quality Stroke Does the patient have a stroke diagnosis?: No VTE Prior VTE?: No VTE Risk Level:: Medical - moderate - high VTE Device Contraindication: N/A - Device Ordered VTE Drug Contraindication: N/A - Med Ordered
--- NOTE | 2024-09-23 14:25 | P.PNHO-ONC_ITS ---
Medical Summary - Medical Summary Date of Service: 09/23/24 Chief complaint: Weakness Primary Care Provider: Cade Enriquez MD [employer] Utilized?: No - Z[place]ian Speaking Interval History Interval history: Charles Lucero is a 79 year old male who presented to [facility] on 09/16/2024 after recent discharge from the hospital with complaints of confusion, weakness and fatigue, sent from [facility]. He has remote history of prostate cancer status post prostatectomy in [facility] followed by radiation therapy. Patient was diagnosed with DVT about 2 years ago and has been on Eliquis. He has had hematuria which was secondary to combination of anticoagulation and radiation cystitis, he was admitted to [facility] in July 2024. During that admission he was treated for Klebsiella UTI. CT chest/abdomen and pelvis without contrast performed on 09/04/2024 shows several lung lesions largest on the left lung base measuring 2 cm and a right lesion measuring 2.1 cm, innumerable smaller nodes bilaterally, solid mass in the lower pole of the right kidney measuring 7 cm, conglomerate masses in the para-aortic region consistent with lymphadenopathy, 12 cm, enlarged 4.1 cm right inguinal lymph node, multiple masses in the mesentery measuring up to 3.1 cm in size, soft tissue mass which appears to arise from prostate measuring 2.4 x 10.42 and stent 0.6 cm confluent with the para-aortic lymphadenopathy. He underwent biopsy of RP mass on 09/06/2024, pathology is pending. He is now admitted for weakness and found to have worsening renal failure. He is also found to have worsening hypercalcemia, he was previously treated for hypercalcemia with IV fluids, calcitonin and pamidronate. Events of last week noted. Patient has now temporary dialysis catheter and awaiting renal replacement therapy. Review of Systems - Neurologic Reports no additional neurologic complaints, Reports as per HPI, Denies abnormal speech, Denies headache(s), Reports weakness PMFSH Medical History: Medical History (Last Reviewed 09/18/24 @ 11:27 by Nena Zhang PT) Acute urinary retention Benign essential hypertension Diverticulosis Rene hematuria History of prostate cancer Hypertension Impaired fasting glucose Osteoarthritis of left knee Overweight (BMI 25.0-29.9) Pure hypercholesterolemia Radiation cystitis Renal cyst Urinary retention Vitamin D deficiency Family History: Family History (Last Reviewed 09/16/24 @ 10:19 by PARAMJIT Garcia) Father Cancer Mother Colon cancer Surgical History: Surgical History (Last Reviewed 09/18/24 @ 11:27 by Nena Zhang PT) History of ankle surgery History of colonoscopy History of meniscectomy of left knee Onset Date: ~06/05/12 Hx of prostatectomy Hx of right inguinal hernia repair Onset Date: 02/16/23 Hx of umbilical hernia repair Social History: Social History (Last Reviewed 09/16/24 @ 10:19 by PARAMJIT Garcia) Living Situation History: Household Members: Spouse Housing: House Are you a primary director of medicare to a significant other at home: No Do you presently have visiting nurse or other home services: No Tobacco History: Patient Tobacco Use Status: Never used Tobacco e-Cigarette/Vaping Use: Never Used Second Hand Smoke Exposure: No Occupation Assessmet: service: No Current occupational status: retired 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 Home Medications and Allergies Current Medications: Current Medications Acetaminophen (Acetaminophen 325 Mg Tablet) 650 mg PO Q6H PRN PRN Reason: Pain, Mild 1-3,fever,headache Al Hydroxide/Mg Hydroxide (Magnesium Hydrox/Alum Hydrox 30 Ml Oral.Susp) 30 ml PO Q6H PRN PRN Reason: reflux Allopurinol (Allopurinol 100 Mg Tablet) 50 mg PO DAILY [facility] Last Admin: 09/23/24 07:50 Dose: 50 mg Amlodipine Besylate (Amlodipine Besylate 5 Mg Tablet) 5 mg PO DAILY [facility]; Protocol Last Admin: 09/23/24 07:51 Dose: Not Given Bisacodyl (Bisacodyl 10 Mg Supp.Rect) 10 mg GA DAILY PRN PRN Reason: Constipation Dexamethasone (Dexamethasone 2 Mg Tablet) 2 mg PO DAILY [facility] Stop: 10/01/24 08:59 Heparin Sodium (Porcine) (Heparin Sodium,Porcine 5,000 Unit/Ml Vial) 5,000 unit SUBCUT Q12H [facility] Last Admin: 09/20/24 13:33 Dose: Not Given Heparin Sodium (Porcine) (Heparin Sodium,Porcine 5,000 Unit/Ml Vial) 5,000 unit INTRACATH ONCE ONE Stop: 09/24/24 12:01 Levofloxacin (Levaquin) 500 mg in 100 mls @ 100 mls/hr IV Q48H [facility] Last Infusion: 09/22/24 09:45 Dose: Infused Sodium Chloride (Ns) 1,000 mls @ 125 mls/hr IVCONT .Q8H [facility] Last Admin: 09/23/24 13:31 Dose: 125 mls/hr Rasburicase 17.5 mg/ Sodium (Chloride) 50 mls @ 100 mls/hr IV ONCE ONE Stop: 09/23/24 18:29 Magnesium Hydroxide (Milk Of Magnesia 30 Ml Oral.Susp) 30 ml PO DAILY PRN PRN Reason: Constipation Melatonin (Melatonin 3 Mg Tablet) 6 mg PO BEDTIME PRN PRN Reason: Insomnia Metoprolol Tartrate (Metoprolol Tartrate 12.5 Mg Halftab) 12.5 mg PO BID [facility]; Protocol Last Admin: 09/23/24 07:50 Dose: 12.5 mg Omeprazole (Omeprazole 20 Mg Capsule.Dr) 20 mg PO BID@0630,1630 [facility] Last Admin: 09/23/24 05:41 Dose: Not Given Ondansetron HCl (Ondansetron Hcl 4 Mg/2 Ml Vial) 4 mg IVPUSH Q8H PRN PRN Reason: Nausea and Vomiting Last Admin: 09/20/24 03:13 Dose: 4 mg Polyethylene Glycol (Polyethylene Glycol 3350 17 Gm Powd.Pack) 17 gm PO DAILY [facility] Last Admin: 09/22/24 08:22 Dose: Not Given Sodium Bicarbonate (Sodium Bicarbonate 650 Mg Tablet) 650 mg PO BID [facility] Last Admin: 09/23/24 07:51 Dose: 650 mg Sodium Chloride (0.9 % Sodium Chloride Flush 3 Ml Syringe) 3 ml IVFLUSH QSHIFT [facility] Last Admin: 09/23/24 08:40 Dose: Not Given Sodium Zirconium Cyclosilicate (Sodium Zirconium Cyclosilicate 10 Gm Powd.Pack) 10 gm PO DAILY [facility] Trazodone HCl (Trazodone Hcl 50 Mg Tablet) 50 mg PO BEDTIME [facility] Last Admin: 09/22/24 20:28 Dose: 50 mg Home Medications ?Medication ?Instructions ?Recorded ?Confirmed ?Type acetaminophen 325 mg tablet 650 mg PO Q4H PRN Mild Pain (Scale 09/16/24 09/16/24 History Score 1-4) acetaminophen 325 mg tablet 650 mg PO Q6H PRN Fever 09/16/24 09/16/24 History bisacodyl 10 mg rectal suppository 10 mg GA DAILY PRN Constipation 09/16/24 09/16/24 History dexamethasone 1 mg tablet See Taper PO DAILY 09/16/24 09/16/24 History magnesium hydroxide 400 mg/5 mL 30 ml PO DAILY PRN Constipation 09/16/24 09/16/24 History oral suspension (Milk of Magnesia) ondansetron 4 mg disintegrating 4 mg PO Q6H PRN Nausea And Vomiting 09/16/24 09/16/24 History tablet sodium phosphates 19 gram-7 118 ml GA DAILY PRN Constipation 09/16/24 09/16/24 History gram/118 mL enema Allergies Allergy/AdvReac Type Severity Reaction Status Date / Time No Known Allergies Allergy Verified 09/16/24 09:45 Exam Vital signs: Vital Signs Temp 97.1 F 09/23/24 13:03 Pulse 94 09/23/24 13:03 Resp 17 09/23/24 13:03 BP 96/51 L 09/23/24 13:03 Pulse Ox 99 09/23/24 13:03 O2 Del Method Room Air 09/23/24 13:03 Intake & Output 09/22/24 09/23/24 09/23/24 18:59 06:59 18:59 Intake Total 1155.417 / 2375.417 1220 / 2375.417 1000 / 1000 Output Total 700 / 700 Balance 1155.417 / 1675.417 520 / 0471.339 0370 / 1000 Urine Output (Average ml/kg/hr) 0.67 0.67 Intake: Intake, Oral Amount 120 / 340 220 / 340 Intake, IV Amount 1035.417 / 2035.417 1000 / 2035.417 1000 / 1000 Rasburicase 12 mg In 0.9 % 50 / 50 Sodium Chloride 42 ml @ 100 mls /hr IV ONCE ONE Rx#:[id number] levoFLOXacin/D5W 500 mg In 100 100 / 100 ml @ 100 mls/hr IV Q48H [facility] Rx# :[id number] 0.9 % Sodium Chloride 1,000 ml 885.417 / 2573.560 2876 / 3037.307 0091 / 1000 @ 125 mls/hr IVCONT .Q8H [facility] Rx #:[id number] Output: Output, Urine Amount (Catheter) 700 / 700 2-way Urethral 700 / 700 Other: NPO Yes Dinner % Eaten 50% Eating (Feeding) Ability Independent Independent Urine Color Cloudy with Sediment Last Bowel Movement 09/22/24 Stool Incontinent Incontinent Stool Amount Large Moderate Stool Color Dark Brown Brown Stool Consistency Soft Pasty Weight 87.5 kg BMI result Body Mass Index 28.5 - Constitutional Present: mild distress, chronically ill appearing - Routine HEENT Exam Head: Present: normal inspection - Routine Respiratory Exam Present: CTAB. Absent: wheezes - Routine Cardiovascular Exam Cardiovascular: Present: S1, S2 - Routine Abdominal Exam Present: soft - Routine Neurological Exam Present: alert, oriented X3 Data - Labs CBC & Chem 7: 09/23/24 10:48 09/23/24 10:48 Labs: Laboratory Last Values WBC 15.9 X10*3/uL (4.8-10.8) H 09/23/24 10:48 RBC 3.09 X10*6/uL (4.60-5.80) L 09/23/24 10:48 Hgb 8.9 g/dl (14.0-18.0) L 09/23/24 10:48 Hct 27.6 % (42.0-52.0) L 09/23/24 10:48 MCV 89.3 fL (80.0-98.0) 09/23/24 10:48 MCH 28.8 pg (27.0-33.0) 09/23/24 10:48 MCHC 32.2 g/dl (31.0-36.0) 09/23/24 10:48 RDW 18.3 % (11.0-16.0) H 09/23/24 10:48 Plt Count 188 X10*3/uL (160-400) 09/23/24 10:48 MPV 8.6 fL (9.4-12.4) L 09/23/24 10:48 Immature Gran % (Auto) 0.6 % (0.0-0.4) H 09/16/24 10:19 Neut % (Auto) 92.7 % (45-73) H 09/16/24 10:19 Lymph % (Auto) 2.5 % (20-40) L 09/16/24 10:19 [place] % (Auto) 3.9 % (2-11) 09/16/24 10:19 Eos % (Auto) 0.2 % (0-4) 09/16/24 10:19 Baso % (Auto) 0.1 % (0-2) 09/16/24 10:19 Lymph # (Auto) 0.3 X10*3/uL (1.2-4.9) L 09/16/24 10:19 [place] # (Auto) 0.5 X10*3/uL (0.1-1.2) 09/16/24 10:19 Eos # (Auto) 0.0 X10*3/uL (0.0-0.4) 09/16/24 10:19 Baso # (Auto) 0.0 X10*3/uL (0.0-0.2) 09/16/24 10:19 Abs Immat Gran (auto) 0.08 X10*3/uL (0.00-0.03) H 09/16/24 10:19 Absolute Neuts (auto) 12.0 x10*3/uL (2.0-8.3) H 09/16/24 10:19 Absolute Nucleated RBC 0.000 X10*3/uL (0.0-0.012) 09/23/24 10:48 Nucleated RBC % (auto) 0.0 /100WBC (0.0-0.2) 09/23/24 10:48 Smear Tech's Comments VERIFIED 09/16/24 10:19 Hold Purple Top SEE NOTE 09/23/24 06:19 PT 14.8 SEC (10.9-12.4) H 09/22/24 05:36 INR 1.3 (0.9-1.1) H 09/22/24 05:36 APTT 19.4 SEC (26.0-36.8) L 09/22/24 05:36 Sodium 134 mmol/L (135-145) L 09/23/24 10:48 Potassium 5.3 mmol/L (3.3-5.1) H 09/23/24 10:48 Chloride 106 mmol/L (96-108) 09/23/24 10:48 Carbon Dioxide 14 mmol/L (22-29) L 09/23/24 10:48 Anion Gap 19 (12-20) 09/23/24 10:48 BUN 122 mg/dL (9-16) H 09/23/24 10:48 Creatinine 4.13 mg/dL (0.5-1.4) H* 09/23/24 10:48 Estim Creat Clear Calc 15.6 09/23/24 10:48 Estimated GFR 14 09/23/24 10:48 Random Glucose 109 mg/dL (60-115) 09/23/24 10:48 Fasting Glucose 108 mg/dL (60-99) H 09/16/24 10:19 Lactic Acid 1.6 mmol/L (0.5-2.0) 09/16/24 11:52 Uric Acid 14.2 mg/dL (3.4-7.0) H 09/22/24 05:36 Calcium 11.4 mg/dL (8.4-10.2) H 09/23/24 10:48 Phosphorus 6.3 mg/dL (2.7-4.5) H 09/23/24 06:19 Magnesium 2.2 mg/dL (1.6-2.6) 09/17/24 05:49 Total Bilirubin 0.3 mg/dL (0.0-1.0) 09/23/24 06:19 Direct Bilirubin 0.1 mg/dL (0.0-0.5) 09/23/24 06:19 AST 99 U/L (5-37) H 09/23/24 06:19 ALT 45 U/L (0-40) H 09/23/24 06:19 Alkaline Phosphatase 69 U/L (39-117) 09/23/24 06:19 Ammonia 37 umol/L (13-55) 09/16/24 11:35 Lactate Dehydrogenase 968 U/L (118-273) H 09/23/24 06:19 Troponin I High Sens 12.4 ng/L (<3.5-35.0) 09/16/24 11:52 B-Natriuretic Peptide 60 pg/mL (<100) 09/16/24 11:52 Total Protein 5.3 g/dL (6.5-8.0) L 09/23/24 06:19 Albumin 3.2 g/dL (3.5-5.0) L 09/23/24 06:19 Vitamin B12 644 pg/mL (200-900) 09/21/24 07:17 Folate 5.0 ng/mL (> or = 4.0) 09/21/24 07:17 Urine Color Dark Yellow 09/16/24 10:58 Urine Appearance Cloudy 09/16/24 10:58 Urine pH 5.5 (5.0-9.0) 09/16/24 10:58 Ur Specific [place] 1.015 (1.005-1.025) 09/16/24 10:58 Urine Protein 300 (3+) mg/dL (Neg-Trace) H 09/16/24 10:58 Urine Glucose (UA) Negative mg/dL (Negative) 09/16/24 10:58 Urine Ketones Negative mg/dL (Negative) 09/16/24 10:58 Urine Blood Large (3+) (Negative) H 09/16/24 10:58 Urine Nitrite Negative (Negative) 09/16/24 10:58 Ur Leukocyte Esterase Large (3+) (Negative) H 09/16/24 10:58 Urine RBC >20 /HPF (0-2) H 09/16/24 10:58 Urine WBC 11-20 /HPF (0-5) 09/16/24 10:58 Ur Squamous Epith Cells 0-2 /HPF (0-2) 09/16/24 10:58 Urine Bacteria 1+ (None Seen) 09/16/24 10:58 Hyaline Casts 0-2 /LPF (0-2) 09/16/24 10:58 Uric Pt Rasburicase 2.9 mg/dL 09/23/24 06:19 Influenza Type A (PCR) NEGATIVE (Negative) 09/16/24 11:35 Influenza Type B (PCR) NEGATIVE (Negative) 09/16/24 11:35 RSV RNA Qual (PCR) NEGATIVE (Negative) 09/16/24 11:35 SARS-CoV-2 RNA (RT-PCR) NEGATIVE (Negative) 09/16/24 11:35 - Imaging Radiologist's impression: ITS Impressions Chest X-Ray 09/16/24 10:11 IMPRESSION: Stable right lower lobe pulmonary nodule. No focal airspace opacity is identified. Electronically signed by: Jean Solis MD 09/16/2024 10:42 AM EDT Venous Duplex 09/16/24 10:55 IMPRESSION: No evidence of deep venous thrombosis involving the right lower extremity. Electronically signed by: Avi Luz MD 09/16/2024 11:[address] 09/16/24 12:38 IMPRESSION: Atrophy and findings consistent with small vessel ischemic disease of the white matter. No mass effect or midline shift to suggest metastatic disease. However evaluation is limited on an unenhanced head CT. If there remains clinical concern for metastatic disease, MRI with contrast is recommended. Electronically signed by: Jean Solis MD 09/16/2024 01:21 PM EDT RP Modified Barium Swallow 09/17/24 07:30 IMPRESSION: Laryngeal penetration to the level of the true cords present on thin liquids consistently. No subglottic aspiration noted. Please refer to the full speech therapy report to follow for further details. Electronically signed by: Avi Luz MD 09/19/2024 07:48 AM EDT RP Renal Ultrasound 09/17/24 11:15 IMPRESSION: Multiple right renal cyst with. One of these lesions appears fairly solid questioning mass. It corresponds to a lesion in the midpole on axial image 52/2. Mild left renal hydronephrosis and a simple cyst upper pole left kidney. Incidental finding of free fluid moderate in the left upper quadrant. Incidental finding of a solid mass in the right hepatic lobe Electronically signed by: Chidi Guidry MD 09/17/2024 11:55 AM EDT RP Assessment and Plan Patient Active problem list reviewed?: Yes (1) Lymphadenopathy Status: Acute Assessment and plan: 1. This is a 79-year-old male with metastatic malignancy admitted for worsening hypercalcemia and renal failure. He has developed acute encephalopathy due to infection which is now improving. Hypercalcemia of malignancy, on prior admission he was treated with pamidronate and calcitonin, this is improving. CT chest/abdomen and pelvis without contrast performed on 09/04/2024 shows several lung lesions largest on the left lung base measuring 2 cm and a right lesion measuring 2.1 cm, innumerable smaller nodes bilaterally, solid mass in the lower pole of the right kidney measuring 7 cm, conglomerate masses in the para-aortic region consistent with lymphadenopathy, 12 cm, enlarged 4.1 cm right inguinal lymph node, multiple masses in the mesentery measuring up to 3.1 cm in size, soft tissue mass which appears to arise from prostate measuring 2.4 x 10.42 and stent 0.6 cm confluent with the para-aortic lymphadenopathy. He underwent CT-guided biopsy of retroperitoneal mass on 09/06/2024. Pathology was reported on 09/19/2024 as few viable malignant cells in a background of extensive necrosis. Recommend repeat sampling for additional characterization. This was discussed with patient and family. They do want to proceed with another biopsy to establish diagnosis. I have recommended biopsy of 1 of the lung lesions for additional tissue. This is being scheduled. 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 He is being managed by Nephrology. He received rasburicase on 09/22 and is on allopurinol. He has had a temporary hemodialysis catheter placed. Thank you, will follow up. - Time Spent With Patient Time Spent with Patient (in minutes): 15
--- NOTE | 2024-09-23 16:01 | MHC.CLN ---
NUTRITION CONSULT DIET=LOW POTASSIUM, CHOPPED CONSISTENCY. RECEIVING ENSURE CLEAR TID. PROVIDES 720 KCALS, 24 G PROTEIN. SUPPLEMENT IS RENAL FRIENDLY. PATIENT ON HEMODIALYSIS. WILL BE NPO 09/24 FOR LUNG BIOPSY. PATIENT WITH 4+ BILATERAL LOWER EXTREMITY EDEMA. REVIEW OF WEIGHT HX SHOWS VARIABLE WEIGHTS. MOST RECENT INTAKE AT MEALS 25-75%. FOLLOW FOR PO INTAKE AND PLAN OF CARE. SEE CLINICAL NUTRITION ASSESSMENT 09/23/24.
--- NOTE | 2024-09-23 16:46 | MHC.SLORD ---
Speech Language Pathology Order Status: Pt sitting comfortably in room with family at bedside. [employer] reviewed recommendations for PO safety as per results of MBSS 09/17. Pt verbalized understanding and agreed with diet/compensatory strateiges. Pt endorsed now managing esophageal reflux has been challenging, and he avoids certain foods (i.e. meats). Continued dysphagia management may be indicated at time of d/c to facilitate pt understanding and use of recommended diet modifications/compensatory safety strategies.
--- NOTE | 2024-09-23 17:28 | PC.NURSE ---
Patient in dialysis
[2024-09-23] MEDS: SODIUM CHLORIDE 0.9% IV (20:26)
[2024-09-23] MEDS: RASBURICASE IV (20:26)
[2024-09-24] VITALS (19 sets, daily range): BP systolic 78–122; BP diastolic 42–59; PULSE 96–112; RESP 16–22; TEMP 36.1–36.9; O2SAT 96–100
--- NOTE | 2024-09-24 03:19 | PC.NURSE ---
Pt cameback from dialysis at 2014, pt is awake, feeling weak, no appetite for dinner, BP= 92/64 by machine, 102/44 by maual, HD RN reported pt had soft BP mostly during the dialysis session, taken only 300ml and bolus 200ml given, Dr. Crocker was updated, Metoprolol and trazodone held, MAhurkar on the right neck noted and dressing is intact, pt denies any pain, family at bedside upon arrival and left later of he night, NPO post MN, for Lung Biopsy today.
[2024-09-24 07:03] LABS: Alanine Aminotransferase 41 U/L (0-40); Albumin Level 3.2 g/dL (3.5-5.0); Alkaline Phosphatase 68 U/L (39-117); Aspartate Amino Transferase 78 U/L (5-37); Bilirubin Direct 0.2 mg/dL (0.0-0.5); Bilirubin Total 0.3 mg/dL (0.0-1.0); Total Protein 5.1 g/dL (6.5-8.0)
[2024-09-24 08:10] LABS: HBc Num1 0.08 S/CO (0.00-0.79); HBsAGNum1 0.46 S/CO (0.00-0.99); Hepatitis B Core Antibody Nonreactive (Nonreactive); Hepatitis B Surface Antigen Negative (Negative); ~Hepatitis B Surface Antibody NONREACTIVE (Nonreactive)
[2024-09-24] MEDS: 0.9 % Sodium Chloride 1,000 ML 125 ML IVCONT (08:26)
[2024-09-24] MEDS: levoFLOXacin/D5W 500 MG/100 ML PIGGYBACK 100 MG IV (08:27)
[2024-09-24] MEDS: allopurinoL 100 MG TABLET 50 MG PO (08:28)
[2024-09-24] MEDS: dexAMETHasone 2 MG TABLET PO (08:29)
[2024-09-24] MEDS: Sodium Bicarbonate 650 MG TABLET PO ×2 (08:29→20:13)
[2024-09-24 08:32] LABS: Anion Gap 19 (12-20); Blood Urea Nitrogen 102 mg/dL (9-16); Calcium 10.1 mg/dL (8.4-10.2); Carbon Dioxide 18 mmol/L (22-29); Chloride 105 mmol/L (96-108); Creatinine Clr Calc Pharmacy 17.2; Estimated Glomerular Filt Rate 16; Glucose Random 87 mg/dL (60-115); Potassium 5.3 mmol/L (3.3-5.1); Sodium 137 mmol/L (135-145)
--- NOTE | 2024-09-24 09:00 | P.PNNP_ITS ---
Subjective Subjective Date of Service: 09/30/24 Interval history: reports ongoing weakness, fatigue Last HD session thursday 09/28, removed ~1.4L. hypotension during HD ongoing issue but has been tolerating with administration of albumin and 15mg midodrine with HD uric acid levels improved, 2.3 on 09/28 (rasburicase 09/22 and 09/23); phosphorous 3.6 patient on bipap this a.m., reports feeling weak and tired, having difficulty communicating through bipap mask. patient being transferred to ICU this a.m. due to hypotension, BP 50/30 Physical Exam 2 Vital Signs: Vital Signs: Last Vital Signs Temp 97.9 F 09/30/24 07:54 Pulse 120 H 09/30/24 09:38 Resp 35 H 09/30/24 09:45 BP 50/30 L 09/30/24 09:45 Pulse Ox 97 09/30/24 07:54 O2 Del Method CPAP 09/30/24 07:54 O2 Flow Rate 2 09/30/24 07:54 BMI result Body Mass Index 28.5 Const: General: no acute distress, alert and awake Resp: Effort & Inspection: normal respiratory effort and able to speak in complete sentences Auscultation: clear to auscultation bilaterally Cardio: Jugular venous distension: no JVD Rate: regular rate Rhythm: r egular rhythm Heart sounds: S1 normal heart sound present and S2 normal heart sound present GI: Palpation (GI): Soft to palpation and nontender Skin: Rashes: no rashes Extrem: General: Yes edema (+3 BLE edema; abdominal pitting edema) Objective Data Labs 09/30/24 10:26 09/30/24 06:24 Labs: Laboratory Results - last 24 hr 09/30/24 09/30/24 06:24 10:26 WBC 16.3 H 16.4 H RBC 2.71 L 3.15 L Hgb 8.1 L 9.6 L Hct 25.5 L 29.8 L MCV 94.1 94.6 MCH 29.9 30.5 MCHC 31.8 32.2 RDW 19.0 H 19.6 H Plt Count 120 L 128 L MPV 8.8 L 8.9 L Immature Gran % (Auto) 1.1 H Neut % (Auto) 93.2 H Lymph % (Auto) 2.1 L [place] % (Auto) 3.5 Eos % (Auto) 0.0 Baso % (Auto) 0.1 Lymph # (Auto) 0.3 L [place] # (Auto) 0.6 Eos # (Auto) 0.0 Baso # (Auto) 0.0 Abs Immat Gran (auto) 0.18 H Absolute Neuts (auto) 15.2 H Absolute Nucleated RBC 0.000 0.020 H Nucleated RBC % (auto) 0.0 0.1 Smear Tech's Comments VERIFIED Hold Purple Top SEE NOTE Sodium 137 Potassium 4.9 Chloride 97 Carbon Dioxide 19 L Anion Gap 26 H BUN 65 H Creatinine 3.83 H Estim Creat Clear Calc 16.8 Estimated GFR 15 Fasting Glucose 69 Uric Acid 3.4 Calcium 9.2 Phosphorus 3.9 Total Bilirubin 0.8 AST 64 H ALT 15 Alkaline Phosphatase 46 Total Protein 6.2 L Albumin 4.9 Microbiology Microbiology Results: Microbiology 09/16/24 11:52 Blood - Venous Blood Culture - Final No growth after 5 days. 09/16/24 11:35 Blood - Venous Blood Culture - Final No growth after 5 days. 09/16/24 Unknown Urine Catheterized - Morales Catheter Urine Culture - Final Klebsiella aerogenes Procedures Date of Service Date of Service: 09/30/24 Assessment & Plan Assessment and plan (1) Acute kidney injury superimposed on CKD: Status: Acute (2) Hyperkalemia: Status: Acute (3) Volume overload: Status: Acute Plan MARYSE on CKD3 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 uric acid levels normalized- will re-check today fluid overload remains significant and creatinine has been slow to improve- will hold on HD today but will ultrafiltrate to remove additional fluid- patinet being transferred to ICU where his blood pressures may be better supported right IJ temporary HD catheter in place H&H 9.2 & 27.6 calcium 9.2, phos 3.9 anion gap metabolic acidosis with serum bicarb 19 electrolytes within normal limits recommend daily electrolyte and renal function studies regular blood pressure checks, I&O monitoring continue supportive care, will continue to follow Discussed with Dr Arias Time Spent With Patient Time: Total time managing care of this patient today ____ minutes. Progress Note: Quality Stroke Does the patient have a stroke diagnosis?: No
[2024-09-24] MEDS: Midodrine HCl 5 MG TABLET PO ×2 (10:21→17:43)
[2024-09-24] MEDS: Albumin Human 25 % 100 ML IV ×2 (10:21→23:56)
--- NOTE | 2024-09-24 11:08 | W.PM.DNNEP ---
Subjective Subjective Date of Service: 09/24/24 This patient was seen during dialysis. Interval history: reports ongoing weakness. HD yesterday, only 300mL removed due to hypotension. plan for lung biopsy today uric acid levels improved to 2.9 (rasburicase administered 09/22 and 09/23) Physical Exam Vital Signs: Vital Signs: Last Vital Signs Temp 97.0 F 09/24/24 07:53 Pulse 105 H 09/24/24 07:53 Resp 18 09/24/24 07:53 BP 99/53 L 09/24/24 07:53 Pulse Ox 96 09/24/24 07:53 O2 Del Method Room Air 09/24/24 07:53 BMI result Body Mass Index 28.5 Const: General: no acute distress, alert and awake Resp: Effort & Inspection: normal respiratory effort and able to speak in complete sentences Auscultation: clear to auscultation bilaterally Cardio: Jugular venous distension: no JVD Rate: regular rate Rhythm: regular rhythm Heart sounds: S1 normal heart sound present and S2 normal heart sound present GI: Palpation (GI): Soft to palpation and nontender Skin: Rashes: no rashes Extrem: General: Yes edema (+4 BLE edema) Assessment & Plan Assessment and plan (1) Acute kidney injury superimposed on CKD: Status: Acute (2) Hyperkalemia: Status: Acute (3) Volume overload: Status: Acute Plan MARYSE on CKD3 likely tubular injury from TLS fluid overload remains significant given minimal fluid removed during HD yesterday- will repeat HD today and will give albumin to help with hypotension. May also use PRN midodrine if hypotension persists right IJ temporary HD catheter in place H&H 8.9 & 27.6, will check trasnferrin/ferritin levels calcium 10.1, phos 6.3 metabolic acidosis and electrolyte imbalances improving post HD recommend daily electrolyte and renal function studies regular blood pressure checks, I&O monitoring continue supportive care, will continue to follow Discussed with Dr Nagy Time Spent With Patient Time: Total time managing care of this patient today ____ minutes. Procedures Date of Service Date of Service: 09/24/24
--- NOTE | 2024-09-24 11:21 | P.PNIM_ITS ---
Subjective Subjective Date of Service: 09/24/24 Interval History: undergoing 2nd day of HD today no pain other than in back from lying in bed no dyspnea no lightheadedness Review of Systems Review of Systems: Yes all other systems are reviewed and are negative Physical Exam 2 Vital Signs: Vital Signs: Last Vital Signs Temp 97.0 F 09/24/24 07:53 Pulse 105 H 09/24/24 07:53 Resp 18 09/24/24 07:53 BP 99/53 L 09/24/24 07:53 Pulse Ox 96 09/24/24 07:53 O2 Del Method Room Air 09/24/24 07:53 BMI result Body Mass Index 28.5 Gen: in no acute distress but chronically ill/weak-appearing HEENT: sclera anicteric, moist mucus membranes Neck: supple, R IJ HD catheter Lungs: clear to auscultation bilaterally Heart: regular rate and rhythm, no murmurs Abd: soft, non-tender, non-distended : Morales with blood tinged urine Ext: 2+ bilateral leg edema Skin: warm/well-perfused Neuro: alert and oriented x3, no focal findings Psych: appropriate affect Objective Data Active Medications Acetaminophen (Acetaminophen 325 Mg Tablet) 650 mg PO Q6H PRN PRN Reason: Pain, Mild 1-3,fever,headache Al Hydroxide/Mg Hydroxide (Magnesium Hydrox/Alum Hydrox 30 Ml Oral.Susp) 30 ml PO Q6H PRN PRN Reason: reflux Allopurinol (Allopurinol 100 Mg Tablet) 50 mg PO DAILY [facility] Last Admin: 09/24/24 08:28 Dose: 50 mg Documented By: LEVY Amlodipine Besylate (Amlodipine Besylate 5 Mg Tablet) 5 mg PO DAILY [facility]; Protocol Last Admin: 09/24/24 08:18 Dose: Not Given Documented By: LEVY Non-Admin Reason: per md low bp Bisacodyl (Bisacodyl 10 Mg Supp.Rect) 10 mg OR DAILY PRN PRN Reason: Constipation Dexamethasone (Dexamethasone 2 Mg Tablet) 2 mg PO DAILY [facility] Stop: 10/01/24 08:59 Last Admin: 09/24/24 08:29 Dose: 2 mg Documented By: LEVY Heparin Sodium (Porcine) (Heparin Sodium,Porcine 5,000 Unit/Ml Vial) 5,000 unit SUBCUT Q12H [facility] Last Admin: 09/20/24 13:33 Dose: Not Given Documented By: DAYTON Non-Admin Reason: Physician Held Med Heparin Sodium (Porcine) (Heparin Sodium,Porcine 5,000 Unit/Ml Vial) 5,000 unit INTRACATH ONCE ONE Stop: 09/24/24 12:01 Levofloxacin (Levaquin) 500 mg in 100 mls @ 100 mls/hr IV Q48H [facility] Last Infusion: 09/24/24 09:30 Dose: Infused Documented By: LEVY Magnesium Hydroxide (Milk Of Magnesia 30 Ml Oral.Susp) 30 ml PO DAILY PRN PRN Reason: Constipation Melatonin (Melatonin 3 Mg Tablet) 6 mg PO BEDTIME PRN PRN Reason: Insomnia Metoprolol Tartrate (Metoprolol Tartrate 12.5 Mg Halftab) 12.5 mg PO BID [facility]; Protocol Last Admin: 09/24/24 08:26 Dose: Not Given Documented By: LEVY Non-Admin Reason: per Omeprazole (Omeprazole 20 Mg Capsule.Dr) 20 mg PO BID@0630,1630 [facility] Last Admin: 09/24/24 05:27 Dose: Not Given Documented By: LIANET Non-Admin Reason: NPO Ondansetron HCl (Ondansetron Hcl 4 Mg/2 Ml Vial) 4 mg IVPUSH Q8H PRN PRN Reason: Nausea and Vomiting Last Admin: 09/20/24 03:13 Dose: 4 mg Documented By: LAN-BREANA Polyethylene Glycol (Polyethylene Glycol 3350 17 Gm Powd.Pack) 17 gm PO DAILY [facility] Last Admin: 09/22/24 08:22 Dose: Not Given Documented By: RAMON Non-Admin Reason: Patient Refused Sodium Bicarbonate (Sodium Bicarbonate 650 Mg Tablet) 650 mg PO BID [facility] Last Admin: 09/24/24 08:29 Dose: 650 mg Documented By: LEVY Sodium Chloride (0.9 % Sodium Chloride Flush 3 Ml Syringe) 3 ml IVFLUSH QSHIFT [facility] Last Admin: 09/24/24 07:35 Dose: Not Given Documented By: LEVY Non-Admin Reason: Previously Administered Sodium Zirconium Cyclosilicate (Sodium Zirconium Cyclosilicate 10 Gm Powd.Pack) 10 gm PO DAILY [facility] Last Admin: 09/24/24 08:29 Dose: Not Given Documented By: LEVY Non-Admin Reason: npo and going for dialysis Trazodone HCl (Trazodone Hcl 50 Mg Tablet) 50 mg PO BEDTIME [facility] Last Admin: 09/23/24 20:54 Dose: Not Given Documented By: LIANET Non-Admin Reason: held per Dr. Crocker Labs 09/23/24 10:48 09/24/24 06:11 Labs: Laboratory Results - last 24 hr 09/23/24 09/23/24 09/24/24 10:48 18:18 06:11 Hold Purple Top SEE NOTE Anion Gap 19 19 Estim Creat Clear Calc 15.6 17.2 Estimated GFR 14 16 Random Glucose 109 87 Calcium 11.4 H 10.1 D Total Bilirubin 0.3 Direct Bilirubin 0.2 AST 78 H ALT 41 H Alkaline Phosphatase 68 Total Protein 5.1 L Albumin 3.2 L Hep Bs Antigen Negative Hep Bs Antibody NONREACTIVE Hep B Core Total Ab Nonreactive Assessment and Plan (1) Acute kidney injury superimposed on CKD: Status: Acute Plan d8 for 79yo M from 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 Pathology inconclusive due to extensive tumor necrosis, PDL-1 and MSI stains pending but unlikely to be conclusive. Repeat biopsy recommended. Best option would be one of the 2 cm lung nodules. Today he will udnergo CT-guided biopsy of R lung nodule noted on CT chest 09/04/24. Possibilities include renal carcinoma and lymphoma, others as well hyperCa of malignancy - s/p 120 mg denosmab 09/09, 90 mg pamidronate 09/03 - on dexamethasone taper per last admission: vitamin D3 levels were 94 suggestive of increase 1 alpha hydroxylase activity possibly secondary to underlying malignancy, likely lymphomas. PTH levels are low secondary to hypercalcemia. CT scan of chest abdomen and pelvis did not show any bony metastasis. Patient had biopsy of the retroperitoneal mass which is still pending. Although the actual treatment is to treat the cancer per se, in the meantime we started the patient on dexamethasone 4 mg daily to decrease the 1 alpha hydroxylase activity, we will taper dexamethasone by 1 mg every week. - Ca normalized after HD sepsis due to complicated polymicrobial UTI - ceftriaxone 09/16-09/19, BCx negative, per Urology changed to levofloxacin 09/18- as per [facility] PCR report 09/06 growing Enterococcus faecalis, Klebsiella aerogenes, and Raoultella ornithinolytica, of which all are susceptible to quinolone hematuria - Morales replaced, hold heparin, per Urology no CBI unless clots form acute encephalopathy due to infection - resolved anemia of chronic disease - H+H stable dysphagia - MBSS done 09/17, per QUARTZ ORIENTATOR: very slow oral phase and compromised airway protection. Trace penetration seen intermittently with thin liquid and mixed media (puree with liquid). No evidence of aspiration. Moderate pharyngeal retention partially cleared with strategies. Once cleared to advance from Full Liquids, recc start on CHOPPED/ADVANCED (NDD3) solids and THIN liquids, pills WHOLE in PUREE HTN - held amlodipine + metoprolol tartrate for hypotension; got 5 mg midodrine plus 25 g albumin VTE ppx - SCDs, hold UFH due to hematuria and biopsies dispo - eventual return to SNF In my clinical judgment, the patient requires continued inpatient hospitalization for the following reasons: MARYSE requiring HD, TLS, biopsy of undifferentiated cancer Total time managing care of this patient today: 55 minutes. Quality Stroke Does the patient have a stroke diagnosis?: No VTE Prior VTE?: No VTE Risk Level:: Medical - moderate - high VTE Device Contraindication: N/A - Device Ordered VTE Drug Contraindication: N/A - Med Ordered
--- NOTE | 2024-09-24 12:22 | PC.NURSE ---
Addendum entered by Rodríguez Zafar RN 09/24/24 14:20: per give dose of prn midodrine Addendum entered by Rodríguez Zafar RN 09/24/24 14:07: informed of low bp Original Note: informed of pt's bp this AM. per morning show producer 1kg removed
[2024-09-24] MEDS: Lidocaine HCl 1 % MPF 30 ML VIAL 10 ML SUBCUT (15:16)
[2024-09-24] MEDS: Omeprazole 20 MG CAPSULE.DR PO (17:43)
[2024-09-24] MEDS: traZODone HCL 50 MG TABLET PO (20:13)
[2024-09-24] MEDS: 0.9 % Sodium Chloride Flush 3 ML SYRINGE IVFLUSH (20:13)
[2024-09-24] MEDS: Metoprolol Tartrate 12.5 MG HALFTAB PO (20:13)
[2024-09-24] MEDS: Milk of Magnesia 30 ML ORAL.SUSP PO (20:21)
[2024-09-25] VITALS (13 sets, daily range): BP systolic 85–113; BP diastolic 45–55; PULSE 95–111; RESP 16–20; TEMP 36.3–37.3; O2SAT 95–98
[2024-09-25] MEDS: Albumin Human 25 % 100 ML IV ×2 (05:21→11:49)
[2024-09-25] MEDS: Omeprazole 20 MG CAPSULE.DR PO (05:23)
[2024-09-25 07:19] LABS: Mean Corpuscular HGB Conc 33.7 g/dl (31.0-36.0); Mean Corpuscular Hemoglobin 29.4 pg (27.0-33.0); Mean Corpuscular Volume 87.4 fL (80.0-98.0); Mean Platelet Volume 8.5 fL (9.4-12.4); Platelet Count 137 X10*3/uL (160-400); Red Blood Count 2.31 X10*6/uL (4.60-5.80); Red Cell Distribution Width 18.9 % (11.0-16.0); White Blood Count 11.7 X10*3/uL (4.8-10.8)
[2024-09-25 07:32] LABS: Uric Acid for Rasburicase 0.5 mg/dL
[2024-09-25 07:39] LABS: Anion Gap 17 (12-20); Blood Urea Nitrogen 74 mg/dL (9-16); Calcium 9.2 mg/dL (8.4-10.2); Carbon Dioxide 24 mmol/L (22-29); Chloride 102 mmol/L (96-108); Creatinine Clr Calc Pharmacy 18.7; Estimated Glomerular Filt Rate 17; Glucose Random 90 mg/dL (60-115); Phosphorus 4.1 mg/dL (2.7-4.5); Potassium 4.5 mmol/L (3.3-5.1); Sodium 138 mmol/L (135-145)
[2024-09-25 07:46] LABS: Hematocrit 20.2 % (42.0-52.0); Hemoglobin 6.8 g/dl (14.0-18.0)
[2024-09-25] MEDS: 0.9 % Sodium Chloride Flush 3 ML SYRINGE IVFLUSH ×3 (08:01→20:25)
[2024-09-25] MEDS: Pantoprazole Sodium 40 MG/10 ML VIAL IVPUSH ×2 (08:01→16:21)
[2024-09-25] MEDS: Midodrine HCl 5 MG TABLET PO ×3 (08:02→20:13)
[2024-09-25] MEDS: dexAMETHasone 2 MG TABLET PO (08:02)
[2024-09-25] MEDS: allopurinoL 100 MG TABLET 50 MG PO (08:02)
[2024-09-25] MEDS: Sodium Zirconium Cyclosilicate 10 GM POWD.PACK PO (08:03)
[2024-09-25] MEDS: Sodium Bicarbonate 650 MG TABLET PO (08:03)
[2024-09-25 08:54] LABS: Ferritin 3305 ng/mL (20-250)
--- NOTE | 2024-09-25 10:49 | HO.PM.IMPN ---
Subjective Subjective Date of Service: 09/25/24 Interval History: denies pain, nausea, or vomiting blood pressure low, given albumin overnight severe anemia, consents to transfusion Review of Systems Review of Systems: Yes all other systems are reviewed and are negative Physical Exam Vital Signs: Vital Signs: Last Vital Signs Temp 97.6 F 09/25/24 07:47 Pulse 110 H 09/25/24 07:47 Resp 20 09/25/24 07:47 BP 94/50 L 09/25/24 08:02 Pulse Ox 96 09/25/24 07:47 O2 Del Method Room Air 09/25/24 07:47 O2 Flow Rate 2 09/24/24 16:15 BMI result Body Mass Index 28.5 Gen: in no acute distress but chronically ill/weak-appearing HEENT: sclera anicteric, moist but pale mucus membranes Neck: supple, R IJ HD catheter Lungs: clear to auscultation bilaterally Heart: regular rate and rhythm, no murmurs Abd: soft, non-tender, non-distended : Morales with blood tinged urine Ext: 3+ bilateral leg edema Skin: warm/well-perfused Neuro: alert and oriented x3, no focal findings Psych: appropriate affect Objective Data Active Medications Acetaminophen (Acetaminophen 325 Mg Tablet) 650 mg PO Q6H PRN PRN Reason: Pain, Mild 1-3,fever,headache Al Hydroxide/Mg Hydroxide (Magnesium Hydrox/Alum Hydrox 30 Ml Oral.Susp) 30 ml PO Q6H PRN PRN Reason: reflux Allopurinol (Allopurinol 100 Mg Tablet) 50 mg PO DAILY [facility] Last Admin: 09/25/24 08:02 Dose: 50 mg Documented By: GABI Amlodipine Besylate (Amlodipine Besylate 5 Mg Tablet) 5 mg PO DAILY [facility]; Protocol Last Admin: 09/24/24 08:18 Dose: Not Given Documented By: LEVY Non-Admin Reason: per low bp Bisacodyl (Bisacodyl 10 Mg Supp.Rect) 10 mg GA DAILY PRN PRN Reason: Constipation Dexamethasone (Dexamethasone 2 Mg Tablet) 2 mg PO DAILY [facility] Stop: 10/01/24 08:59 Last Admin: 09/25/24 08:02 Dose: 2 mg Documented By: GABI Heparin Sodium (Porcine) (Heparin Sodium,Porcine 5,000 Unit/Ml Vial) 5,000 unit SUBCUT Q12H [facility] Last Admin: 09/20/24 13:33 Dose: Not Given Documented By: DAYTON Non-Admin Reason: Physician Held Med Levofloxacin (Levaquin) 500 mg in 100 mls @ 100 mls/hr IV Q48H [facility] Last Infusion: 09/24/24 09:30 Dose: Infused Documented By: LEVY Magnesium Hydroxide (Milk Of Magnesia 30 Ml Oral.Susp) 30 ml PO DAILY PRN PRN Reason: Constipation Last Admin: 09/24/24 20:21 Dose: 30 ml Documented By: PETEY Melatonin (Melatonin 3 Mg Tablet) 6 mg PO BEDTIME PRN PRN Reason: Insomnia Metoprolol Tartrate (Metoprolol Tartrate 12.5 Mg Halftab) 12.5 mg PO BID [facility]; Protocol Last Admin: 09/25/24 08:03 Dose: Not Given Documented By: GABI Non-Admin Reason: Decreased Blood Pressure Midodrine (Midodrine Hcl 5 Mg Tablet) 5 mg PO DAILY PRN PRN Reason: Dialysis hypotension Midodrine (Midodrine Hcl 5 Mg Tablet) 5 mg PO TID [facility] Last Admin: 09/25/24 08:02 Dose: 5 mg Documented By: GABI Ondansetron HCl (Ondansetron Hcl 4 Mg/2 Ml Vial) 4 mg IVPUSH Q8H PRN PRN Reason: Nausea and Vomiting Last Admin: 09/20/24 03:13 Dose: 4 mg Documented By: JUANI Pantoprazole Sodium (Pantoprazole Sodium 40 Mg/10 Ml Vial) 40 mg IVPUSH BID@0630,1630 [facility] Last Admin: 09/25/24 08:01 Dose: 40 mg Documented By: GABI Polyethylene Glycol (Polyethylene Glycol 3350 17 Gm Powd.Pack) 17 gm PO DAILY [facility] Last Admin: 09/22/24 08:22 Dose: Not Given Documented By: RAMON Non-Admin Reason: Patient Refused Sodium Bicarbonate (Sodium Bicarbonate 650 Mg Tablet) 650 mg PO BID [facility] Last Admin: 09/25/24 08:03 Dose: 650 mg Documented By: GABI Sodium Chloride (0.9 % Sodium Chloride Flush 3 Ml Syringe) 3 ml IVFLUSH QSHIFT [facility] Last Admin: 09/25/24 08:01 Dose: 3 ml Documented By: GABI Sodium Zirconium Cyclosilicate (Sodium Zirconium Cyclosilicate 10 Gm Powd.Pack) 10 gm PO DAILY [facility] Last Admin: 09/25/24 08:03 Dose: 10 gm Documented By: GABI Trazodone HCl (Trazodone Hcl 50 Mg Tablet) 50 mg PO BEDTIME [facility] Last Admin: 09/24/24 20:13 Dose: 50 mg Documented By: PETEY Labs 09/25/24 06:59 09/25/24 06:59 Labs: Laboratory Results - last 24 hr 09/25/24 09/25/24 06:59 08:52 MCV 87.4 MCH 29.4 MCHC 33.7 RDW 18.9 H Plt Count 137 L D MPV 8.5 L Absolute Nucleated RBC 0.000 Nucleated RBC % (auto) 0.0 Anion Gap 17 Estim Creat Clear Calc 18.7 Estimated GFR 17 Random Glucose 90 Calcium 9.2 D Phosphorus 4.1 Ferritin 3305 H Uric Pt Rasburicase 0.5 Blood Type AB Positive Antibody Screen NEGATIVE Crossmatch See Detail Assessment and Plan (1) Acute kidney injury superimposed on CKD: Status: Acute Plan d9 for 79yo M from [facility] where he was undergoing STR, with 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, sent in with increasing fatigue, weakness, and confusion; found to have MARYSE and UTI biopsy of retroperitoneal mass nondiagnostic developed worsening MARYSE and 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 started on HD 09/23 underwent biopsy of lung metastasis 09/24 anemia likely due to cancer, renal disease, chronic inflammation - will transfuse 1u pRBCs with HD today; recheck H+H tomorrow; change PPI from PO to IV hyperK without EKG changes - given insulin/D50 + albuterol; started daily Lokelma; HD started daily 09/23-, Nephrology following TLS - given 12 mg rasburicause 09/22 and 17.5 mg [0.2 mg/kg] 09/23; on renally-dosed allopurinol; uric acid level now 0.5; recheck electrolytes tomorrow MARYSE NAGMA - HD as above - suspect due to hypovolemia/tubular injury/TLS - continue PO bicarbonate undifferentiated metastatic CA - discussed with Oncology. Pathology inconclusive due to extensive tumor necrosis, PDL-1 and MSI stains pending but unlikely to be conclusive. Repeat biopsy recommended. CT-guided biopsy of R lung nodule done 09/24/24. Pathology pending. HTN - holding amlodipine + metoprolol tartrate for hypotension; start midodrine hyperCa of malignancy - s/p 120 mg denosmab 09/09, 90 mg pamidronate 09/03 - on dexamethasone taper per last admission: vitamin D3 levels were 94 suggestive of increase 1 alpha hydroxylase activity possibly secondary to underlying malignancy, likely lymphomas. PTH levels are low secondary to hypercalcemia. CT scan of chest abdomen and pelvis did not show any bony metastasis. Patient had biopsy of the retroperitoneal mass which is still pending. Although the actual treatment is to treat the cancer per se, in the meantime we started the patient on dexamethasone 4 mg daily to decrease the 1 alpha hydroxylase activity, we will taper dexamethasone by 1 mg every week. - Ca normalized after HD sepsis due to complicated polymicrobial UTI - ceftriaxone 09/16-09/19, BCx negative, per Urology changed to levofloxacin 09/18-09/28 as per [facility] PCR report 09/06 growing Enterococcus faecalis, Klebsiella aerogenes, and Raoultella ornithinolytica, of which all are susceptible to quinolone hematuria - Morales replaced, hold heparin, per Urology no CBI unless clots form acute encephalopathy due to infection - resolved dysphagia - MBSS done 09/17, per OLD TESTAMENT PROFESSOR: very slow oral phase and compromised airway protection. Trace penetration seen intermittently with thin liquid and mixed media (puree with liquid). No evidence of aspiration. Moderate pharyngeal retention partially cleared with strategies. Once cleared to advance from Full Liquids, recc start on CHOPPED/ADVANCED (NDD3) solids and THIN liquids, pills WHOLE in PUREE VTE ppx - SCDs, hold UFH due to hematuria and biopsies dispo - eventual return to SNF In my clinical judgment, the patient requires continued inpatient hospitalization for the following reasons: MARYSE requiring HD, tumor lysis syndrome Total time managing care of this patient today: 60 minutes. Quality Stroke Does the patient have a stroke diagnosis?: No VTE Prior VTE?: No VTE Risk Level:: Medical - moderate - high VTE Device Contraindication: N/A - Device Ordered VTE Drug Contraindication: N/A - Med Ordered
[2024-09-25] MEDS: Midodrine HCl 10 MG TABLET PO (11:49)
--- NOTE | 2024-09-25 12:19 | MHC.CLN ---
F/U PO INTAKE 25-50% DIET RX: REGULAR LOW POTASSIUM PT RECEIVING ENSURE TID AND MAGIC CUP TID ENSURE TID PROVIDES 1050KCALS, 60 G PROTEIN MAGIC CUP PROVIDES 870KCALS, 27G PROTEIN MONITOR PO INTAKE AND ENCOURAGE SUPPLEMENTS
--- NOTE | 2024-09-25 13:25 | MHC.SLORD ---
Speech Language Pathology Order Status: Pt not seen 09/25, SUPERINTENDENT [employer]ING [employer]NAGING continues to follow.
--- NOTE | 2024-09-25 13:55 | W.PM.DNNEP ---
Subjective Subjective Date of Service: 09/25/24 This patient was seen during dialysis. Interval history: reports ongoing weakness, fatigue HD yesterday, ~1L removed, hypotension during HD ongoing issue but did improve somewhat with albumin and midodrine uric acid levels improved, 2.9 yesterday, 0.5 today (rasburicase 09/22 and 09/23) reports legs feel very heavy with significant swelling lung biopsy pending Physical Exam Vital Signs: Vital Signs: Last Vital Signs Temp 98.4 F 09/25/24 13:39 Pulse 105 H 09/25/24 13:39 Resp 16 09/25/24 13:39 BP 87/55 L 09/25/24 13:39 Pulse Ox 96 09/25/24 07:47 O2 Del Method Room Air 09/25/24 07:47 O2 Flow Rate 2 09/24/24 16:15 BMI result Body Mass Index 28.5 Const: General: no acute distress, alert and awake Resp: Effort & Inspection: normal respiratory effort and able to speak in complete sentences Auscultation: clear to auscultation bilaterally Cardio: Jugular venous distension: no JVD Rate: regular rate Rhythm: regular rhythm Heart sounds: S1 normal heart sound present and S2 normal heart sound present GI: Palpation (GI): Soft to palpation and nontender Skin: Rashes: no rashes Extrem: General: Yes edema (+4 BLE edema) Assessment & Plan Assessment and plan (1) Acute kidney injury superimposed on CKD: Status: Acute (2) Hyperkalemia: Status: Acute (3) Volume overload: Status: Acute Plan MARYSE on CKD3 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 right IJ temporary HD catheter in place H&H 6.8 & 20.2- pt to receive unit of pRBCs today calcium 9.2, phos 4.1 no current metabolic acidosis - d/c sodium bicarbonate electrolytes within normal limits- may hold lokelma recommend daily electrolyte and renal function studies regular blood pressure checks, I&O monitoring continue supportive care, will continue to follow Discussed with Dr Arias Time Spent With Patient Time: Total time managing care of this patient today ____ minutes. Procedures Date of Service Date of Service: 09/25/24
--- NOTE | 2024-09-25 14:37 | MHC.CM.PN ---
Per rounds, pt. is not ready to DC, DCP is STR, Anna following.
[2024-09-25 16:00] LABS: Haptoglobin 117 mg/dL (40-268)
[2024-09-25 16:26] LABS: Lactate Dehydrogenase 1571 U/L (118-273)
[2024-09-25] MEDS: traZODone HCL 50 MG TABLET PO (20:13)
[2024-09-26] VITALS (9 sets, daily range): BP systolic 88–113; BP diastolic 52–60; PULSE 98–117; RESP 16–18; TEMP 36.1–36.6; O2SAT 96–97
[2024-09-26 03:49] LABS: Transferrin 92 mg/dL (188-341)
[2024-09-26] MEDS: Pantoprazole Sodium 40 MG/10 ML VIAL IVPUSH ×2 (06:21→17:01)
[2024-09-26 07:45] LABS: Hematocrit 27.6 % (42.0-52.0); Hemoglobin 9.1 g/dl (14.0-18.0); Mean Corpuscular Hemoglobin 29.7 pg (27.0-33.0); Mean Corpuscular Volume 90.2 fL (80.0-98.0); Mean Platelet Volume 8.6 fL (9.4-12.4); Platelet Count 167 X10*3/uL (160-400); Red Blood Count 3.06 X10*6/uL (4.60-5.80); Red Cell Distribution Width 18.1 % (11.0-16.0); White Blood Count 17.5 X10*3/uL (4.8-10.8)
[2024-09-26 07:57] LABS: Anion Gap 19 (12-20); Blood Urea Nitrogen 56 mg/dL (9-16); Calcium 9.1 mg/dL (8.4-10.2); Carbon Dioxide 22 mmol/L (22-29); Chloride 101 mmol/L (96-108); Creatinine Clr Calc Pharmacy 20.9; Estimated Glomerular Filt Rate 20; Glucose Random 118 mg/dL (60-115); Potassium 3.9 mmol/L (3.3-5.1); Sodium 138 mmol/L (135-145)
[2024-09-26] MEDS: Midodrine HCl 5 MG TABLET PO ×3 (08:19→20:14)
[2024-09-26] MEDS: dexAMETHasone 2 MG TABLET PO (08:19)
[2024-09-26] MEDS: allopurinoL 100 MG TABLET 50 MG PO (08:19)
[2024-09-26] MEDS: 0.9 % Sodium Chloride Flush 3 ML SYRINGE IVFLUSH ×3 (08:20→20:18)
[2024-09-26] MEDS: levoFLOXacin/D5W 500 MG/100 ML PIGGYBACK 100 MG IV (08:20)
[2024-09-26 09:13] LABS: Hematocrit 27.6 % (42.0-52.0); Hemoglobin 9.2 g/dl (14.0-18.0); Mean Corpuscular HGB Conc 33.3 g/dl (31.0-36.0); Mean Corpuscular Hemoglobin 30.2 pg (27.0-33.0); Mean Corpuscular Volume 90.5 fL (80.0-98.0); Mean Platelet Volume 8.4 fL (9.4-12.4); Platelet Count 147 X10*3/uL (160-400); Red Blood Count 3.05 X10*6/uL (4.60-5.80); Red Cell Distribution Width 18.1 % (11.0-16.0); White Blood Count 17.8 X10*3/uL (4.8-10.8)
[2024-09-26] MEDS: Albumin Human 25 % 100 ML IV (11:08)
[2024-09-26] MEDS: Midodrine HCl 10 MG TABLET PO (11:09)
--- NOTE | 2024-09-26 11:30 | P.PNIM_ITS ---
Subjective Subjective Date of Service: 09/26/24 Interval History: had some strange sensations of bubble in ear after HD yesterday; resolved swelling slightly improved no pain no N/V Review of Systems Review of Systems: Yes all other systems are reviewed and are negative Physical Exam 2 Vital Signs: Vital Signs: Last Vital Signs Temp 97.0 F 09/26/24 07:04 Pulse 117 H 09/26/24 07:04 Resp 18 09/26/24 07:04 BP 101/58 L 09/26/24 11:09 Pulse Ox 97 09/26/24 07:04 O2 Del Method Room Air 09/26/24 07:04 O2 Flow Rate 2 09/24/24 16:15 BMI result Body Mass Index 28.5 Gen: in no acute distress but chronically ill/weak-appearing HEENT: sclera anicteric, moist mucus membranes Neck: supple, R IJ HD catheter Lungs: clear to auscultation bilaterally Heart: regular rate and rhythm, no murmurs Abd: soft, non-tender, non-distended : Morales with blood tinged urine Ext: 2+ bilateral leg edema Skin: warm/well-perfused Neuro: alert and oriented x3, no focal findings Psych: appropriate affect Objective Data Active Medications Acetaminophen (Acetaminophen 325 Mg Tablet) 650 mg PO Q6H PRN PRN Reason: Pain, Mild 1-3,fever,headache Al Hydroxide/Mg Hydroxide (Magnesium Hydrox/Alum Hydrox 30 Ml Oral.Susp) 30 ml PO Q6H PRN PRN Reason: reflux Allopurinol (Allopurinol 100 Mg Tablet) 50 mg PO DAILY [facility] Last Admin: 09/26/24 08:19 Dose: 50 mg Documented By: GABI Amlodipine Besylate (Amlodipine Besylate 5 Mg Tablet) 5 mg PO DAILY [facility]; Protocol Last Admin: 09/24/24 08:18 Dose: Not Given Documented By: LEVY Non-Admin Reason: per low bp Bisacodyl (Bisacodyl 10 Mg Supp.Rect) 10 mg MI DAILY PRN PRN Reason: Constipation Dexamethasone (Dexamethasone 2 Mg Tablet) 2 mg PO DAILY [facility] Stop: 10/01/24 08:59 Last Admin: 09/26/24 08:19 Dose: 2 mg Documented By: GABI Heparin Sodium (Porcine) (Heparin Sodium,Porcine 5,000 Unit/Ml Vial) 5,000 unit SUBCUT Q12H [facility] Last Admin: 09/20/24 13:33 Dose: Not Given Documented By: DAYTON Non-Admin Reason: Physician Held Med Levofloxacin (Levaquin) 500 mg in 100 mls @ 100 mls/hr IV Q48H [facility] Stop: 09/28/24 23:59 Last Infusion: 09/26/24 09:41 Dose: Infused Documented By: GABI Albumin Human (Kedbumin 25 %) 100 mls @ 100 mls/hr IV ONCE ONE Stop: 09/26/24 11:23 Last Admin: 09/26/24 11:08 Dose: 100 mls/hr Documented By: GABI Magnesium Hydroxide (Milk Of Magnesia 30 Ml Oral.Susp) 30 ml PO DAILY PRN PRN Reason: Constipation Last Admin: 09/24/24 20:21 Dose: 30 ml Documented By: PETEY Melatonin (Melatonin 3 Mg Tablet) 6 mg PO BEDTIME PRN PRN Reason: Insomnia Metoprolol Tartrate (Metoprolol Tartrate 12.5 Mg Halftab) 12.5 mg PO BID [facility]; Protocol Last Admin: 09/25/24 08:03 Dose: Not Given Documented By: GABI Non-Admin Reason: Decreased Blood Pressure Midodrine (Midodrine Hcl 5 Mg Tablet) 5 mg PO DAILY PRN PRN Reason: Dialysis hypotension Midodrine (Midodrine Hcl 5 Mg Tablet) 5 mg PO TID [facility] Last Admin: 09/26/24 08:19 Dose: 5 mg Documented By: GABI Ondansetron HCl (Ondansetron Hcl 4 Mg/2 Ml Vial) 4 mg IVPUSH Q8H PRN PRN Reason: Nausea and Vomiting Last Admin: 09/20/24 03:13 Dose: 4 mg Documented By: JUANI Pantoprazole Sodium (Pantoprazole Sodium 40 Mg/10 Ml Vial) 40 mg IVPUSH BID@0630,1630 [facility] Last Admin: 09/26/24 06:21 Dose: 40 mg Documented By: LISSETT Polyethylene Glycol (Polyethylene Glycol 3350 17 Gm Powd.Pack) 17 gm PO DAILY [facility] Last Admin: 09/22/24 08:22 Dose: Not Given Documented By: RAMON Non-Admin Reason: Patient Refused Sodium Chloride (0.9 % Sodium Chloride Flush 3 Ml Syringe) 3 ml IVFLUSH QSHIFT [facility] Last Admin: 09/26/24 08:20 Dose: 3 ml Documented By: GABI Sodium Zirconium Cyclosilicate (Sodium Zirconium Cyclosilicate 10 Gm Powd.Pack) 10 gm PO DAILY [facility] Last Admin: 09/25/24 08:03 Dose: 10 gm Documented By: GABI Trazodone HCl (Trazodone Hcl 50 Mg Tablet) 50 mg PO BEDTIME [facility] Last Admin: 09/25/24 20:13 Dose: 50 mg Documented By: LISSETT Labs 09/26/24 08:59 09/26/24 07:16 Labs: Laboratory Results - last 24 hr 09/25/24 09/25/24 09/25/24 06:59 08:52 15:35 MCV MCH MCHC RDW Plt Count MPV Absolute Nucleated RBC Nucleated RBC % (auto) Smear Path Review SEE NOTE Anion Gap Estim Creat Clear Calc Estimated GFR Random Glucose Haptoglobin 117 Calcium Transferrin 92 L Lactate Dehydrogenase 1571 H Blood Type AB Positive Antibody Screen NEGATIVE SERENA, Polyspecific NEGATIVE Positive SERENA Work-up TNP Crossmatch See Detail 09/26/24 09/26/24 07:16 08:59 MCV 90.2 90.5 MCH 29.7 30.2 MCHC 33.0 33.3 RDW 18.1 H 18.1 H Plt Count 167 147 L MPV 8.6 L 8.4 L Absolute Nucleated RBC 0.000 0.000 Nucleated RBC % (auto) 0.0 0.0 Smear Path Review Anion Gap 19 Estim Creat Clear Calc 20.9 Estimated GFR 20 Random Glucose 118 H Haptoglobin Calcium 9.1 Transferrin Lactate Dehydrogenase Blood Type Antibody Screen SERENA, Polyspecific Positive SERENA Work-up Crossmatch Assessment and Plan (1) Acute kidney injury superimposed on CKD: Status: Acute Plan d11 for 79yo M from [facility] where he was undergoing STR, with 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 HD started daily 09/23-, Nephrology following. D/c Lokelma now. TLS - given 12 mg rasburicause 09/22 and 17.5 mg [0.2 mg/kg] 09/23; on renally-dosed allopurinol; uric acid level now 0.5; recheck electrolytes tomorrow MARYSE NAGMA - continue HD today per Nephrology - suspect due to hypovolemia/tubular injury/TLS - d/c bicarbonate as NAGMA has resolved undifferentiated metastatic CA - discussed with Oncology. Pathology inconclusive due to extensive tumor necrosis, PDL-1 and MSI stains pending but unlikely to be conclusive. Repeat biopsy recommended. CT-guided biopsy of R lung nodule done 09/24/24. Pathology pending. HTN - holding amlodipine + metoprolol tartrate for hypotension; started midodrine hyperCa of malignancy - s/p 120 mg denosmab 09/09, 90 mg pamidronate 09/03 - on dexamethasone taper per last admission: vitamin D3 levels were 94 suggestive of increase 1 alpha hydroxylase activity possibly secondary to underlying malignancy, likely lymphomas. PTH levels are low secondary to hypercalcemia. CT scan of chest abdomen and pelvis did not show any bony metastasis. Patient had biopsy of the retroperitoneal mass which is still pending. Although the actual treatment is to treat the cancer per se, in the meantime we started the patient on dexamethasone 4 mg daily to decrease the 1 alpha hydroxylase activity, we will taper dexamethasone by 1 mg every week. - Ca normalized after HD sepsis due to complicated polymicrobial UTI - ceftriaxone 09/16-09/19, BCx negative, per Urology changed to levofloxacin 09/18- 09/28 as per [facility] PCR report 09/06 growing Enterococcus faecalis, Klebsiella aerogenes, and Raoultella ornithinolytica, of which all are susceptible to quinolone hematuria - Morales replaced, hold heparin, per Urology no CBI unless clots form acute encephalopathy due to infection - resolved dysphagia - MBSS done 09/17, per [employer] TECHNICAL SALES CONSULTANT: very slow oral phase and compromised airway protection. Trace penetration seen intermittently with thin liquid and mixed media (puree with liquid). No evidence of aspiration. Moderate pharyngeal retention partially cleared with strategies. Once cleared to advance from Full Liquids, recc start on CHOPPED/ADVANCED (NDD3) solids and THIN liquids, pills WHOLE in PUREE VTE ppx - SCDs, hold UFH due to hematuria and biopsies dispo - eventual return to SNF In my clinical judgment, the patient requires continued inpatient hospitalization for the following reasons: MARYSE requiring HD, tumor lysis syndrome Total time managing care of this patient today: 50 minutes. Quality Stroke Does the patient have a stroke diagnosis?: No VTE Prior VTE?: No VTE Risk Level:: Medical - moderate - high VTE Device Contraindication: N/A - Device Ordered VTE Drug Contraindication: N/A - Med Ordered
--- NOTE | 2024-09-26 11:45 | MHC.SL.SWA ---
Addendum entered and electronically signed by BROOKLYN Riggins 09/26/24 15:48: Pt was NPO for procedure on 09/24, therefore not able to participate in PO trials w/ HIDE MILL WORKER Original Note: Speech Pathologist Impression: Risk of Aspiration Due to: Medically Fragile Poor PO Intake Dysphasia Diet Status: Recommend continue on CHOPPED ADVANCED (NDD3) with THIN liquids, pills whole in puree Please note modifications section for strategies/feeding issues. Liquid Consistency and Strategies for Safe Swallow: Liquid Intake Recommendation: Thin Liquid Intake Strategies: Small Sips No Straws Double Swallow Solid Food Consistency: Dietary Recommendations: Chopped/Advanced (NDD3) Additional Modifications to Solid Foods: Recommend continue on a CHOPPED/ADVANCED (NDD3) diet with THIN liquids, pills WHOLE in PUREE. Patient is recommended standard aspiration precautions and strategies to promote oral and pharyngeal clearance: -take one sip at a time -AVOID straws -AVOID chain sipping -take one bite at a time -moisten foods with thick sauces/gravies -chew food well -alternate with sips of liquid -1-2 dry swallows after each bite/sip -AVOID mixed consistencies, overly dry or tough foods -maintain upright 90 degree position during PO intake and for at least 30 minutes afterwards The following compensatory strategies and/or therapeutic exercises will be part of the upcoming therapy/management plan: Liquid Wash Additional Swallow(s) per Bolus Oral Medication Intake: Whole with Puree Please contact the pharmacy regarding appropriate crushable or liquid drug formulations that are available whenever modified delivery is recommended. Compensatory Strategies and Precautions to be Taken for Safe Swallow: Sitting Upright (90 deg) Double Swallow Small Bites and Sips Alternate Liquids/Solids Rate of Ingestion Change Avoid Specific Foods Supervision While Eating and Drinking for Safe Swallow: Direct Supervision (1:1) Foods to Avoid: Mixed consistencies, overly tough, dry, or chewy foods Swallowing Recommended Treatments: Compens. Strategy Educat. Recommendation for Speech: Inpatient Speech Therapy Speech Therapy through Rehab Facility Comment: Patient seen this morning at Breakfast. Tray had just arrived, patient requested HIDE MILL WORKER set up table for him to access the food. Patient has not been seen by HIDE MILL WORKER since 09/20/24, and apparently had been advanced at some point to a Regular diet (it was not indicated in any note this had been recommended by HIDE MILL WORKER, so unclear when this occurred). Tray this morning was several slices of hard cooked farah and a blueberry muffin with nutritional supplements (ensure, magic cup). Patient reported that he had sent the blueberry muffin away with the psychiatric aide as it gets stuck in my throat. Food slip indicated patient had ordered sausages, farah was substituted as they were out. Patient agreed that farah was also inappropriate for his dysphagia needs, and allowed HIDE MILL WORKER to remove. HIDE MILL WORKER ordered oatmeal which patient requested as a substitute meal. Patient had been seen for MBSS on 09/17/24, presents with a moderate oropharyngeal dysphagia, with significant issues related to oral phase, making regular diet, particularly hard, difficult to chew meats, inappropriate. After HIDE MILL WORKER visit, Patient apparently advocated about issue to MD, who has downgraded diet back to Chopped Advanced (NDD3), which is diet recommended by HIDE MILL WORKER. Recommend continue HIDE MILL WORKER/swallow service to monitor and educate patient on appropriate foods for swallow issues. Frequency/Duration: Daily M-F Date Range for Service Req: Timeline to reassess: PRN Code Enforcement Supervisor Clinican/Clinical Fellow: No Supervisory Statement: I have reviewed and agree with the student/clinical fellow's documentation: N/A Speech Language Pathologist: Poly Ennis M.A., [facility]-HIDE MILL WORKER
--- NOTE | 2024-09-26 12:00 | W.PM.DNNEP ---
Subjective Subjective Date of Service: 09/26/24 This patient was seen during dialysis. Interval history: reports ongoing weakness, fatigue HD yesterday, ~3.2L removed, hypotension during HD ongoing issue but has been tolerating with administration of albumin and 15mg midodrine with HD uric acid levels improved, 0.5 on 09/25 (rasburicase 09/22 and 09/23) reports leg continue to feel heavy with swelling lung biopsy pending Physical Exam Vital Signs: Vital Signs: Last Vital Signs Temp 97.0 F 09/26/24 07:04 Pulse 117 H 09/26/24 07:04 Resp 18 09/26/24 07:04 BP 101/58 L 09/26/24 09:54 Pulse Ox 97 09/26/24 07:04 O2 Del Method Room Air 09/26/24 07:04 O2 Flow Rate 2 09/24/24 16:15 BMI result Body Mass Index 28.5 Const: General: no acute distress, alert and awake Resp: Effort & Inspection: normal respiratory effort and able to speak in complete sentences Auscultation: clear to auscultation bilaterally Cardio: Jugular venous distension: no JVD Rate: regular rate Rhythm: regular rhythm Heart sounds: S1 normal heart sound present and S2 normal heart sound present GI: Palpation (GI): Soft to palpation and nontender Skin: Rashes: no rashes Extrem: General: Yes edema (+3 BLE edema) Assessment & Plan Assessment and plan (1) Acute kidney injury superimposed on CKD: Status: Acute (2) Hyperkalemia: Status: Acute (3) Volume overload: Status: Acute Plan MARYSE on CKD3 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 uric acid levels normalized, should continue to hold off on additional rasburicase fluid overload remains significant and creatinine has been slow to improve- will repeat HD today and will give albumin and 15mg midodrine right IJ temporary HD catheter in place H&H 9.2 & 27.6 calcium 9.2, phos 4.1 no current metabolic acidosis - d/c sodium bicarbonate electrolytes within normal limits- may hold lokelma recommend daily electrolyte and renal function studies regular blood pressure checks, I&O monitoring continue supportive care, will continue to follow Discussed with Dr Nagy Time Spent With Patient Time: Total time managing care of this patient today ____ minutes. Procedures Date of Service Date of Service: 09/26/24
[2024-09-26] MEDS: traZODone HCL 50 MG TABLET PO (20:11)
[2024-09-27] VITALS (8 sets, daily range): BP systolic 74–97; BP diastolic 40–55; PULSE 62–116; RESP 16–18; TEMP 36–36.3; O2SAT 95–97
[2024-09-27] MEDS: Milk of Magnesia 30 ML ORAL.SUSP PO (05:22)
[2024-09-27] MEDS: Pantoprazole Sodium 40 MG/10 ML VIAL IVPUSH ×2 (05:22→16:17)
[2024-09-27 07:03] LABS: Anion Gap 18 (12-20); Blood Urea Nitrogen 54 mg/dL (9-16); Calcium 8.8 mg/dL (8.4-10.2); Carbon Dioxide 23 mmol/L (22-29); Chloride 99 mmol/L (96-108); Creatinine Clr Calc Pharmacy 19.2; Estimated Glomerular Filt Rate 18; Glucose Random 118 mg/dL (60-115); Lactate Dehydrogenase 1303 U/L (118-273); Phosphorus 3.6 mg/dL (2.7-4.5); Potassium 4.2 mmol/L (3.3-5.1); Sodium 136 mmol/L (135-145)
[2024-09-27 07:05] LABS: Uric Acid for Rasburicase 1.5 mg/dL
[2024-09-27] MEDS: allopurinoL 100 MG TABLET 50 MG PO (07:48)
[2024-09-27] MEDS: dexAMETHasone 2 MG TABLET PO (07:48)
[2024-09-27] MEDS: Midodrine HCl 5 MG TABLET PO (07:48)
[2024-09-27] MEDS: 0.9 % Sodium Chloride Flush 3 ML SYRINGE IVFLUSH ×3 (07:48→23:56)
[2024-09-27] MEDS: Midodrine HCl 10 MG TABLET PO ×3 (08:42→20:07)
--- NOTE | 2024-09-27 08:45 | P.PNNP_ITS ---
Subjective Subjective Date of Service: 09/27/24 Interval history: reports ongoing weakness, fatigue has had HD x4 this week (monday-), 1.2L removed yesterday, hypotension during HD ongoing issue but has been tolerating with administration of albumin and 15mg midodrine with HD uric acid levels improved, 1.5 on 09/27 (rasburicase 09/22 and 09/23); phosphorous 3.6 reports leg continue to feel heavy with swelling but feels some improvement over last few days lung biopsy pending Physical Exam 2 Vital Signs: Vital Signs: Last Vital Signs Temp 97.1 F 09/27/24 08:00 Pulse 116 H 09/27/24 08:00 Resp 18 09/27/24 08:00 BP 90/51 L 09/27/24 08:00 Pulse Ox 96 09/27/24 08:00 O2 Del Method Room Air 09/27/24 08:00 O2 Flow Rate 2 09/24/24 16:15 BMI result Body Mass Index 28.5 Const: General: no acute distress, alert and awake Resp: Effort & Inspection: normal respiratory effort and able to speak in complete sentences Auscultation: clear to auscultation bilaterally Cardio: Jugular venous distension: no JVD Rate: regular rate Rhythm: r egular rhythm Heart sounds: S1 normal heart sound present and S2 normal heart sound present GI: Palpation (GI): Soft to palpation and nontender Skin: Rashes: no rashes Extrem: General: Yes edema (+3 BLE edema) Objective Data Labs 09/26/24 08:59 09/27/24 06:30 Labs: Laboratory Results - last 24 hr 09/27/24 09/27/24 06:30 10:11 Hold Purple Top SEE NOTE Sodium 136 Potassium 4.2 Chloride 99 Carbon Dioxide 23 Anion Gap 18 BUN 54 H Creatinine 3.36 H Estim Creat Clear Calc 19.2 Estimated GFR 18 Random Glucose 118 H Calcium 8.8 Phosphorus 3.6 Lactate Dehydrogenase 1303 H Stool Occult Blood NEGATIVE Uric Pt Rasburicase 1.5 Microbiology Microbiology Results: Microbiology 09/16/24 11:52 Blood - Venous Blood Culture - Final No growth after 5 days. 09/16/24 11:35 Blood - Venous Blood Culture - Final No growth after 5 days. 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 uric acid levels normalized, should continue to hold off on additional rasburicase fluid overload remains significant and creatinine has been slow to improve- will hold on HD today given 4 sessions this week- will plan for HD tomorrow (albumin and midodrine to help maintain BP) right IJ temporary HD catheter in place H&H 9.2 & 27.6 calcium 9.2, phos 4.1 no current metabolic acidosis - d/c sodium bicarbonate electrolytes within normal limits- may hold bibima recommend daily electrolyte and renal function studies regular blood pressure checks, I&O monitoring continue supportive care, will continue to follow Discussed with Dr Arias Time Spent With Patient Time: Total time managing care of this patient today ____ minutes. Progress Note: Quality Stroke Does the patient have a stroke diagnosis?: No
--- NOTE | 2024-09-27 10:02 | MHC.SL.SWA ---
Speech Pathologist Impression: Risk of Aspiration, Oropharyngeal Dysphagia Risk of Aspiration Due to: Medically Fragile Poor PO Intake Dysphasia Diet Status: Recommend continue on CHOPPED ADVANCED (NDD3) with THIN liquids, pills whole in puree Please note modifications section for strategies/feeding issues. Liquid Consistency and Strategies for Safe Swallow: Liquid Intake Recommendation: Thin Liquid Intake Strategies: Small Sips No Straws Double Swallow Solid Food Consistency: Dietary Recommendations: Chopped/Advanced (NDD3) Additional Modifications to Solid Foods: Recommend continue on a CHOPPED/ADVANCED (NDD3) diet with THIN liquids, pills WHOLE in PUREE. Patient is recommended standard aspiration precautions and strategies to promote oral and pharyngeal clearance: -take one sip at a time -AVOID straws -AVOID chain sipping -take one bite at a time -moisten foods with thick sauces/gravies -chew food well -alternate with sips of liquid -1-2 dry swallows after each bite/sip -AVOID mixed consistencies, overly dry or tough foods -maintain upright 90 degree position during PO intake and for at least 30 minutes afterwards The following compensatory strategies and/or therapeutic exercises will be part of the upcoming therapy/management plan: Liquid Wash Additional Swallow(s) per Bolus Oral Medication Intake: Whole with Puree Please contact the pharmacy regarding appropriate crushable or liquid drug formulations that are available whenever modified delivery is recommended. Compensatory Strategies and Precautions to be Taken for Safe Swallow: Sitting Upright (90 deg) Double Swallow Small Bites and Sips Alternate Liquids/Solids Rate of Ingestion Change Avoid Specific Foods Supervision While Eating and Drinking for Safe Swallow: Direct Supervision (1:1) Foods to Avoid: Mixed consistencies, overly tough, dry, or chewy foods Swallowing Recommended Treatments: Compens. Strategy Educat. Recommendation for Speech: Inpatient Speech Therapy Speech Therapy through Rehab Facility Frequency/Duration: Daily M-F Date Range for Service Req: Timeline to reassess: PRN Vp Human Resources Clinican/Clinical Fellow: No Supervisory Statement: I have reviewed and agree with the student/clinical fellow's documentation: N/A Speech Language Pathologist: Michelle Cho M.A., CCC-LOGISTICS SPECIALIST
[2024-09-27] MEDS: ondansetron HCL 4 MG/2 ML VIAL IVPUSH (10:12)
--- NOTE | 2024-09-27 10:40 | HO.PM.IMPN ---
Subjective Subjective Date of Service: 09/27/24 Interval History: feels tired and weak but no pain denies any neurologic symptoms after HD Review of Systems Review of Systems: Yes all other systems are reviewed and are negative Physical Exam Vital Signs: Vital Signs: Last Vital Signs Temp 97.1 F 09/27/24 08:00 Pulse 116 H 09/27/24 08:00 Resp 18 09/27/24 08:00 BP 90/51 L 09/27/24 08:00 Pulse Ox 96 09/27/24 08:00 O2 Del Method Room Air 09/27/24 08:00 O2 Flow Rate 2 09/24/24 16:15 BMI result Body Mass Index 28.5 Gen: in no acute distress but chronically ill/weak-appearing HEENT: sclera anicteric, moist mucus membranes Neck: supple, R IJ HD catheter Lungs: clear to auscultation bilaterally Heart: regular rate and rhythm, no murmurs Abd: soft, non-tender, non-distended : Morales with blood tinged urine Ext: 2+ bilateral leg edema below mid-hagen Skin: warm/well-perfused Neuro: alert and oriented x3, no focal findings Psych: appropriate affect Objective Data Active Medications Acetaminophen (Acetaminophen 325 Mg Tablet) 650 mg PO Q6H PRN PRN Reason: Pain, Mild 1-3,fever,headache Al Hydroxide/Mg Hydroxide (Magnesium Hydrox/Alum Hydrox 30 Ml Oral.Susp) 30 ml PO Q6H PRN PRN Reason: reflux Allopurinol (Allopurinol 100 Mg Tablet) 50 mg PO DAILY [facility] Last Admin: 09/27/24 07:48 Dose: 50 mg Documented By: DARIAN Amlodipine Besylate (Amlodipine Besylate 5 Mg Tablet) 5 mg PO DAILY [facility]; Protocol Last Admin: 09/24/24 08:18 Dose: Not Given Documented By: LEVY Non-Admin Reason: per md low bp Bisacodyl (Bisacodyl 10 Mg Supp.Rect) 10 mg [place] DAILY PRN PRN Reason: Constipation Dexamethasone (Dexamethasone 2 Mg Tablet) 2 mg PO DAILY [facility] Stop: 10/01/24 08:59 Last Admin: 09/27/24 07:48 Dose: 2 mg Documented By: DARIAN Heparin Sodium (Porcine) (Heparin Sodium,Porcine 5,000 Unit/Ml Vial) 5,000 unit SUBCUT Q12H [facility] Last Admin: 09/20/24 13:33 Dose: Not Given Documented By: DAYTON Non-Admin Reason: Physician Held Med Levofloxacin (Levaquin) 500 mg in 100 mls @ 100 mls/hr IV Q48H [facility] Stop: 09/28/24 23:59 Last Infusion: 09/26/24 09:41 Dose: Infused Documented By: GABI Magnesium Hydroxide (Milk Of Magnesia 30 Ml Oral.Susp) 30 ml PO DAILY PRN PRN Reason: Constipation Last Admin: 09/27/24 05:22 Dose: 30 ml Documented By: LISSETT Melatonin (Melatonin 3 Mg Tablet) 6 mg PO BEDTIME PRN PRN Reason: Insomnia Metoprolol Tartrate (Metoprolol Tartrate 12.5 Mg Halftab) 12.5 mg PO BID [facility]; Protocol Last Admin: 09/25/24 08:03 Dose: Not Given Documented By: GABI Non-Admin Reason: Decreased Blood Pressure Midodrine (Midodrine Hcl 5 Mg Tablet) 5 mg PO DAILY PRN PRN Reason: Dialysis hypotension Midodrine (Midodrine Hcl 10 Mg Tablet) 10 mg PO TID [facility] Last Admin: 09/27/24 08:42 Dose: 10 mg Documented By: DARIAN Ondansetron HCl (Ondansetron Hcl 4 Mg/2 Ml Vial) 4 mg IVPUSH Q8H PRN PRN Reason: Nausea and Vomiting Last Admin: 09/27/24 10:12 Dose: 4 mg Documented By: DARIAN Pantoprazole Sodium (Pantoprazole Sodium 40 Mg/10 Ml Vial) 40 mg IVPUSH BID@0630,1630 [facility] Last Admin: 09/27/24 05:22 Dose: 40 mg Documented By: LISSETT Polyethylene Glycol (Polyethylene Glycol 3350 17 Gm Powd.Pack) 17 gm PO DAILY [facility] Last Admin: 09/22/24 08:22 Dose: Not Given Documented By: RAMON Non-Admin Reason: Patient Refused Sodium Chloride (0.9 % Sodium Chloride Flush 3 Ml Syringe) 3 ml IVFLUSH QSHIFT [facility] Last Admin: 09/27/24 07:48 Dose: 3 ml Documented By: DARIAN Sodium Zirconium Cyclosilicate (Sodium Zirconium Cyclosilicate 10 Gm Powd.Pack) 10 gm PO DAILY [facility] Last Admin: 09/25/24 08:03 Dose: 10 gm Documented By: GABI Trazodone HCl (Trazodone Hcl 50 Mg Tablet) 50 mg PO BEDTIME [facility] Last Admin: 09/26/24 20:11 Dose: 50 mg Documented By: LISSETT Labs 09/26/24 08:59 09/27/24 06:30 Labs: Laboratory Results - last 24 hr 09/27/24 06:30 Hold Purple Top SEE NOTE Anion Gap 18 Estim Creat Clear Calc 19.2 Estimated GFR 18 Random Glucose 118 H Calcium 8.8 Phosphorus 3.6 Lactate Dehydrogenase 1303 H Uric Pt Rasburicase 1.5 Assessment and Plan (1) Acute kidney injury superimposed on CKD: Status: Acute Plan d12 for 79yo M who came from [facility] where he was undergoing STR recently 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 HD started daily 09/23-, Nephrology following. D/c'ed Lokelma as K normalized TLS - given 12 mg rasburicause 09/22 and 17.5 mg [0.2 mg/kg] 09/23; on renally-dosed allopurinol; uric acid level now 1.5; recheck electrolytes + uric acid [for rasburicuase] tomorrow MARYSE NAGMA - hold HD, Nephrology following - suspect due to hypovolemia/tubular injury/TLS - d/c'ed bicarbonate as NAGMA has resolved undifferentiated metastatic CA - discussed with Oncology. Pathology inconclusive due to extensive tumor necrosis. Repeat biopsy recommended. CT-guided biopsy of R lung nodule done 09/24/24. Pathology pending. HTN - holding amlodipine + metoprolol tartrate for hypotension; started midodrine and will increase dose to 10 mg tid hyperCa of malignancy - s/p 120 mg denosmab 09/09, 90 mg pamidronate 09/03 - on dexamethasone taper per last admission: vitamin D3 levels were 94 suggestive of increase 1 alpha hydroxylase activity possibly secondary to underlying malignancy, likely lymphomas. PTH levels are low secondary to hypercalcemia. CT scan of chest abdomen and pelvis did not show any bony metastasis. Patient had biopsy of the retroperitoneal mass which is still pending. Although the actual treatment is to treat the cancer per se, in the meantime we started the patient on dexamethasone 4 mg daily to decrease the 1 alpha hydroxylase activity, we will taper dexamethasone by 1 mg every week. - Ca normalized after HD sepsis due to complicated polymicrobial UTI - ceftriaxone 09/16-09/19, BCx negative, per Urology changed to levofloxacin 09/18-09/28 as per [facility] PCR report 09/06 growing Enterococcus faecalis, Klebsiella aerogenes, and Raoultella ornithinolytica, of which all are susceptible to quinolone hematuria - Morales replaced, hold heparin, per Urology no CBI unless clots form acute encephalopathy due to infection - resolved dysphagia - MBSS done 09/17, per [employer]: very slow oral phase and compromised airway protection. Trace penetration seen intermittently with thin liquid and mixed media (puree with liquid). No evidence of aspiration. Moderate pharyngeal retention partially cleared with strategies. Once cleared to advance from Full Liquids, recc start on CHOPPED/ADVANCED (NDD3) solids and THIN liquids, pills WHOLE in PUREE VTE ppx - SCDs, hold UFH due to hematuria and biopsies dispo - eventual return to SNF In my clinical judgment, the patient requires continued inpatient hospitalization for the following reasons: MARYSE requiring HD, tumor lysis syndrome Total time managing care of this patient today: 50 minutes. Quality Stroke Does the patient have a stroke diagnosis?: No VTE Prior VTE?: No VTE Risk Level:: Medical - moderate - high VTE Device Contraindication: N/A - Device Ordered VTE Drug Contraindication: N/A - Med Ordered
[2024-09-27 10:52] LABS: OBS Int Ctl Valid YES; OBS1 NEGATIVE (NEGATIVE)
--- NOTE | 2024-09-27 12:47 | MHC.CM.PN ---
Per rounds, pt. is not ready to DC, DCP is to go to [facility] or transfer to acute care. CM to follow and assist with DC plan.
--- NOTE | 2024-09-27 14:43 | MHC.CLN ---
F/U MOST RECENT INTAKE 0-25% DIET RX: LOW POTASSIUM, CHOPPED CONSISTENCY PT RECEIVING ENSURE TID AND MAGIC CUP TID ENSURE TID PROVIDES 1050KCALS, 60 G PROTEIN MAGIC CUP PROVIDES 870KCALS, 27G PROTEIN MONITOR PO INTAKE AND ENCOURAGE SUPPLEMENTS
[2024-09-27] MEDS: Albumin Human 25 % 50 ML 100 ML IV ×2 (17:24→18:20)
[2024-09-27] MEDS: traZODone HCL 50 MG TABLET PO (20:07)
[2024-09-27] MEDS: Albumin Human 25 % 100 ML 133.33 ML IV (23:48)
[2024-09-28] VITALS (9 sets, daily range): BP systolic 78–100; BP diastolic 48–56; PULSE 109–124; RESP 16–20; TEMP 36.3–36.6; O2SAT 94–96
[2024-09-28] MEDS: Albumin Human 25 % 100 ML 133.33 ML IV ×5 (00:41→21:14)
[2024-09-28] MEDS: Pantoprazole Sodium 40 MG/10 ML VIAL IVPUSH ×2 (05:41→18:07)
[2024-09-28 06:55] LABS: Hematocrit 23.6 % (42.0-52.0); Hemoglobin 7.5 g/dl (14.0-18.0); Mean Corpuscular HGB Conc 31.8 g/dl (31.0-36.0); Mean Corpuscular Volume 94.4 fL (80.0-98.0); Mean Platelet Volume 8.7 fL (9.4-12.4); Platelet Count 120 X10*3/uL (160-400); Red Cell Distribution Width 18.7 % (11.0-16.0); White Blood Count 14.5 X10*3/uL (4.8-10.8)
[2024-09-28 07:02] LABS: Uric Acid for Rasburicase 2.3 mg/dL
[2024-09-28 07:10] LABS: Anion Gap 23 (12-20); Blood Urea Nitrogen 73 mg/dL (9-16); Calcium 9.8 mg/dL (8.4-10.2); Carbon Dioxide 19 mmol/L (22-29); Chloride 98 mmol/L (96-108); Creatinine Clr Calc Pharmacy 16.2; Estimated Glomerular Filt Rate 15; Glucose Random 98 mg/dL (60-115); Phosphorus 4.2 mg/dL (2.7-4.5); Potassium 4.7 mmol/L (3.3-5.1); Sodium 135 mmol/L (135-145)
[2024-09-28] MEDS: allopurinoL 100 MG TABLET 50 MG PO (08:19)
[2024-09-28] MEDS: Midodrine HCl 10 MG TABLET PO ×3 (08:19→20:53)
[2024-09-28] MEDS: dexAMETHasone 2 MG TABLET PO (08:19)
[2024-09-28] MEDS: Albumin Human 25 % 50 ML 100 ML IV ×2 (08:20→09:04)
[2024-09-28] MEDS: levoFLOXacin/D5W 500 MG/100 ML PIGGYBACK 100 MG IV (10:05)
--- NOTE | 2024-09-28 14:47 | HO.PM.IMPN ---
Subjective Subjective Date of Service: 09/28/24 Interval History: No acute issues overnight. And feels no better than admission per patient Review of Systems Denies chest pain Denies shortness of breath Denies nausea vomiting diarrhea Denies fever chills Physical Exam Vital Signs: Vital Signs: Last Vital Signs Temp 97.9 F 09/28/24 06:59 Pulse 115 H 09/28/24 06:59 Resp 18 09/28/24 06:59 BP 85/51 L 09/28/24 13:59 Pulse Ox 95 09/28/24 06:59 O2 Del Method Room Air 09/28/24 06:59 O2 Flow Rate 2 09/24/24 16:15 BMI result Body Mass Index 28.5 Const: Other: Awake alert no acute distress Resp: Other: Clear but diminished bilaterally no rales rhonchi or wheezes Cardio: Other: No S4; positive S1-S2; no S3 murmurs rubs or gallops GI: Other: Soft nontender nondistended normoactive bowel sounds Extrem: Other: No edema bilaterally Objective Data Active Medications Acetaminophen (Acetaminophen 325 Mg Tablet) 650 mg PO Q6H PRN PRN Reason: Pain, Mild 1-3,fever,headache Al Hydroxide/Mg Hydroxide (Magnesium Hydrox/Alum Hydrox 30 Ml Oral.Susp) 30 ml PO Q6H PRN PRN Reason: reflux Allopurinol (Allopurinol 100 Mg Tablet) 50 mg PO DAILY [facility] Last Admin: 09/28/24 08:19 Dose: 50 mg Documented By: JERZY Amlodipine Besylate (Amlodipine Besylate 5 Mg Tablet) 5 mg PO DAILY [facility]; Protocol Last Admin: 09/24/24 08:18 Dose: Not Given Documented By: LEVY Non-Admin Reason: per md low bp Bisacodyl (Bisacodyl 10 Mg Supp.Rect) 10 mg [place] DAILY PRN PRN Reason: Constipation Dexamethasone (Dexamethasone 2 Mg Tablet) 2 mg PO DAILY [facility] Stop: 10/01/24 08:59 Last Admin: 09/28/24 08:19 Dose: 2 mg Documented By: JERZY Heparin Sodium (Porcine) (Heparin Sodium,Porcine 5,000 Unit/Ml Vial) 5,000 unit SUBCUT Q12H [facility] Last Admin: 09/20/24 13:33 Dose: Not Given Documented By: DAYTON Non-Admin Reason: Physician Held Med Levofloxacin (Levaquin) 500 mg in 100 mls @ 100 mls/hr IV Q48H [facility] Stop: 09/28/24 23:59 Last Infusion: 09/28/24 11:11 Dose: Infused Documented By: JERZY Magnesium Hydroxide (Milk Of Magnesia 30 Ml Oral.Susp) 30 ml PO DAILY PRN PRN Reason: Constipation Last Admin: 09/27/24 05:22 Dose: 30 ml Documented By: LISSETT Melatonin (Melatonin 3 Mg Tablet) 6 mg PO BEDTIME PRN PRN Reason: Insomnia Metoprolol Tartrate (Metoprolol Tartrate 12.5 Mg Halftab) 12.5 mg PO BID [facility]; Protocol Last Admin: 09/25/24 08:03 Dose: Not Given Documented By: GABI Non-Admin Reason: Decreased Blood Pressure Midodrine (Midodrine Hcl 5 Mg Tablet) 5 mg PO DAILY PRN PRN Reason: Dialysis hypotension Midodrine (Midodrine Hcl 10 Mg Tablet) 10 mg PO TID [facility] Last Admin: 09/28/24 13:59 Dose: 10 mg Documented By: JERZY Ondansetron HCl (Ondansetron Hcl 4 Mg/2 Ml Vial) 4 mg IVPUSH Q8H PRN PRN Reason: Nausea and Vomiting Last Admin: 09/27/24 10:12 Dose: 4 mg Documented By: DARIAN Pantoprazole Sodium (Pantoprazole Sodium 40 Mg/10 Ml Vial) 40 mg IVPUSH BID@0630,1630 [facility] Last Admin: 09/28/24 05:41 Dose: 40 mg Documented By: SWATI Polyethylene Glycol (Polyethylene Glycol 3350 17 Gm Powd.Pack) 17 gm PO DAILY [facility] Last Admin: 09/22/24 08:22 Dose: Not Given Documented By: RAMON Non-Admin Reason: Patient Refused Sodium Chloride (0.9 % Sodium Chloride Flush 3 Ml Syringe) 3 ml IVFLUSH QSHIFT [facility] Last Admin: 09/28/24 08:38 Dose: Not Given Documented By: JERZY Non-Admin Reason: IV Running Sodium Zirconium Cyclosilicate (Sodium Zirconium Cyclosilicate 10 Gm Powd.Pack) 10 gm PO DAILY [facility] Last Admin: 09/25/24 08:03 Dose: 10 gm Documented By: GABI Trazodone HCl (Trazodone Hcl 50 Mg Tablet) 50 mg PO BEDTIME [facility] Last Admin: 09/27/24 20:07 Dose: 50 mg Documented By: PETEY Labs 09/28/24 06:30 09/28/24 06:30 Labs: Laboratory Results - last 24 hr 09/28/24 06:30 MCV 94.4 MCH 30.0 MCHC 31.8 RDW 18.7 H Plt Count 120 L MPV 8.7 L Absolute Nucleated RBC 0.000 Nucleated RBC % (auto) 0.0 Anion Gap 23 H Estim Creat Clear Calc 16.2 Estimated GFR 15 Random Glucose 98 Calcium 9.8 D Phosphorus 4.2 Uric Pt Rasburicase 2.3 Assessment and Plan (1) Acute kidney injury superimposed on CKD: Status: Acute (2) Tumor lysis syndrome: Status: Acute (3) Hypercalcemia: Status: Acute (4) Dehydration: Status: Acute Plan 79yo M who came from [facility] where he was undergoing STR recently 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 Started on HD 09/23 1.HyperK without EKG changes - given insulin/D50 + albuterol and daily Lokelma - HD started daily 09/23-, Nephrology following. -follow renals/divalents 2.Tumor Lysis Syndrome - given 12 mg rasburicause 09/22 and 17.5 mg [0.2 mg/kg] 09/23 -renally-dosed allopurinol; uric acid level now 1.5 -follow renals/divalents 3.MARYSE on CKD -hemodialysis started 09/23 -nephrology following 4. Hypotension (in backdrop of known hypertension) -holding amlodipine/metoprolol tartrate f -midodrine and will increase dose to 10 mg tid 5.HyperCa of malignancy - s/p 120 mg denosmab 09/09, 90 mg pamidronate 09/03 - calcium normalized after hemodialysis -continue dexamethasone as ordered 6.Sepsis due to complicated polymicrobial UTI -ceftriaxone 09/16-09/19, BCx negative, per Urology changed to levofloxacin 09/18-09/28 as per [facility] PCR report 09/06 growing Enterococcus faecalis, Klebsiella aerogenes, Raoultella ornithinolytica, of which all are susceptible to quinolone -Levaquin(7).. DC in a.m. 7.Hematuria -resolved -Morales replaced -heparin restarted without issue 8.Dysphagia - MBSS done 09/17 -recommendations implemented -tolerating diet Heparin Full code dispo - eventual return to SNF In my clinical judgment, the patient requires continued inpatient hospitalization for the following reasons: MARYSE requiring HD, tumor lysis syndrome Quality Stroke Does the patient have a stroke diagnosis?: No VTE Prior VTE?: No VTE Risk Level:: Medical - moderate - high VTE Device Contraindication: N/A - Device Ordered VTE Drug Contraindication: N/A - Med Ordered
[2024-09-28] MEDS: 0.9 % Sodium Chloride Flush 3 ML SYRINGE IVFLUSH (18:10)
[2024-09-28] MEDS: guaiFENesin 200 MG/10 ML 10 ML LIQUID PO (21:32)
[2024-09-28] MEDS: Albumin Human 25 % 100 ML IV (22:36)
[2024-09-28] MEDS: Lactated Ringers 500 ML IV (23:34)
[2024-09-29] VITALS (29 sets, daily range): BP systolic 69–104; BP diastolic 44–60; PULSE 89–126; RESP 16–20; TEMP 36.3–36.6; O2SAT 87–99
[2024-09-29] MEDS: traZODone HCL 50 MG TABLET PO ×2 (00:55→20:41)
[2024-09-29] MEDS: Albumin Human 25 % 100 ML IV ×2 (03:07→14:24)
[2024-09-29] MEDS: Lactated Ringers 500 ML IV (04:02)
[2024-09-29] MEDS: Pantoprazole Sodium 40 MG/10 ML VIAL IVPUSH ×2 (04:55→15:28)
--- NOTE | 2024-09-29 05:46 | PM.EVENT ---
Event Note Date of Service: 09/29/24 Event Note: Nurse reported hypotension which improved with colloids and crystalloids. Time Spent With Patient Time: Total time managing care of this patient today ____ minutes.
--- NOTE | 2024-09-29 06:56 | PM.EVENT ---
Event Note Date of Service: 09/29/24 Event Note: Will try albumin and Lasix. Low threshold to transfer to ICU. Goals of care discussion. Time Spent With Patient Time: Total time managing care of this patient today ____ minutes.
[2024-09-29 07:52] LABS: Basophils Percent Auto 0.1 % (0-2); Eosinophils Percent Auto 0.1 % (0-4); Hematocrit 23.8 % (42.0-52.0); Hemoglobin 7.8 g/dl (14.0-18.0); Imm Gran Abs Auto 0.18 X10*3/uL (0.00-0.03); Imm Gran Pct Auto 1.2 % (0.0-0.4); Lymphocytes Absolute Auto 0.3 X10*3/uL (1.2-4.9); Lymphocytes Percent Auto 1.8 % (20-40); MANUAL DIFF FLAG SCAN; Mean Corpuscular HGB Conc 32.8 g/dl (31.0-36.0); Mean Corpuscular Hemoglobin 30.1 pg (27.0-33.0); Mean Platelet Volume 8.6 fL (9.4-12.4); Monocytes Absolute Auto 0.6 X10*3/uL (0.1-1.2); Monocytes Percent Auto 3.6 % (2-11); Neutrophils Absolute Auto 14.3 x10*3/uL (2.0-8.3); Neutrophils Percent Auto 93.2 % (45-73); Platelet Count 102 X10*3/uL (160-400); Red Blood Count 2.59 X10*6/uL (4.60-5.80); Red Cell Distribution Width 18.9 % (11.0-16.0); SCAN SMEAR FLAG 1; White Blood Count 15.3 X10*3/uL (4.8-10.8)
[2024-09-29 07:56] LABS: Mean Corpuscular Volume 91.9 fL (80.0-98.0)
[2024-09-29] MEDS: Hydrocortisone Sod Succ/PF 100 MG VIAL IVPUSH (07:56)
[2024-09-29] MEDS: Albumin Human 25 % 100 ML 133.33 ML IV ×4 (07:57→22:49)
[2024-09-29] MEDS: 0.9 % Sodium Chloride Flush 3 ML SYRINGE IVFLUSH ×2 (07:59→15:28)
[2024-09-29 08:14] LABS: Alanine Aminotransferase 19 U/L (0-40); Albumin Level 4.8 g/dL (3.5-5.0); Alkaline Phosphatase 51 U/L (39-117); Anion Gap 20 (12-20); Aspartate Amino Transferase 55 U/L (5-37); Bilirubin Total 0.8 mg/dL (0.0-1.0); Blood Urea Nitrogen 49 mg/dL (9-16); Calcium 9.1 mg/dL (8.4-10.2); Carbon Dioxide 25 mmol/L (22-29); Chloride 98 mmol/L (96-108); Creatinine Clr Calc Pharmacy 20.2; Estimated Glomerular Filt Rate 19; Glucose Fasting 81 mg/dL (60-99); Potassium 4.7 mmol/L (3.3-5.1); SLIDE REVIEW VERIFIED; Sodium 138 mmol/L (135-145); Total Protein 6.1 g/dL (6.5-8.0)
[2024-09-29] MEDS: allopurinoL 100 MG TABLET 50 MG PO (09:54)
[2024-09-29] MEDS: dexAMETHasone 2 MG TABLET PO (09:54)
[2024-09-29] MEDS: Midodrine HCl 10 MG TABLET PO ×3 (09:54→20:41)
--- NOTE | 2024-09-29 16:34 | P.PNIM_ITS ---
Subjective Subjective Date of Service: 09/29/24 Interval History: Events of overnight noted. Became hypotensive requiring multiple doses of albumin; also started on BiPAP for extreme shortness of breath. Slowly responding to therapies as day progressed Review of Systems Unable to obtain Physical Exam 2 Vital Signs: Vital Signs: Last Vital Signs Temp 98 F 09/29/24 15:35 Pulse 111 H 09/29/24 15:35 Resp 20 09/29/24 15:35 BP 95/57 L 09/29/24 15:35 Pulse Ox 94 09/29/24 15:35 O2 Del Method CPAP 09/29/24 15:35 O2 Flow Rate 2 09/29/24 15:35 BMI result Body Mass Index 28.5 Const: Other: Awake alert no acute distress Resp: Other: Clear but diminished bilaterally no rales rhonchi or wheezes Cardio: Other: No S4; positive S1-S2; no S3 murmurs rubs or gallops GI: Other: Soft nontender nondistended normoactive bowel sounds Extrem: Other: No edema bilaterally Objective Data Active Medications Acetaminophen (Acetaminophen 325 Mg Tablet) 650 mg PO Q6H PRN PRN Reason: Pain, Mild 1-3,fever,headache Al Hydroxide/Mg Hydroxide (Magnesium Hydrox/Alum Hydrox 30 Ml Oral.Susp) 30 ml PO Q6H PRN PRN Reason: reflux Allopurinol (Allopurinol 100 Mg Tablet) 50 mg PO DAILY [facility] Last Admin: 09/29/24 09:54 Dose: 50 mg Documented By: ANDREW Amlodipine Besylate (Amlodipine Besylate 5 Mg Tablet) 5 mg PO DAILY [facility]; Protocol Last Admin: 09/24/24 08:18 Dose: Not Given Documented By: LEVY Non-Admin Reason: per low bp Bisacodyl (Bisacodyl 10 Mg Supp.Rect) 10 mg [place] DAILY PRN PRN Reason: Constipation Dexamethasone (Dexamethasone 2 Mg Tablet) 2 mg PO DAILY [facility] Stop: 10/01/24 08:59 Last Admin: 09/29/24 09:54 Dose: 2 mg Documented By: ANDREW Guaifenesin (Guaifenesin 200 Mg/10 Ml 10 Ml Liquid) 10 ml PO Q4H PRN PRN Reason: Cough Last Admin: 09/28/24 21:32 Dose: 10 ml Documented By: HO.N-CONNO Heparin Sodium (Porcine) (Heparin Sodium,Porcine 5,000 Unit/Ml Vial) 5,000 unit SUBCUT Q12H [facility] Last Admin: 09/20/24 13:33 Dose: Not Given Documented By: DAYTON Non-Admin Reason: Physician Held Med Magnesium Hydroxide (Milk Of Magnesia 30 Ml Oral.Susp) 30 ml PO DAILY PRN PRN Reason: Constipation Last Admin: 09/27/24 05:22 Dose: 30 ml Documented By: LISSETT Melatonin (Melatonin 3 Mg Tablet) 6 mg PO BEDTIME PRN PRN Reason: Insomnia Metoprolol Tartrate (Metoprolol Tartrate 12.5 Mg Halftab) 12.5 mg PO BID [facility]; Protocol Last Admin: 09/25/24 08:03 Dose: Not Given Documented By: GABI Non-Admin Reason: Decreased Blood Pressure Midodrine (Midodrine Hcl 5 Mg Tablet) 5 mg PO DAILY PRN PRN Reason: Dialysis hypotension Midodrine (Midodrine Hcl 10 Mg Tablet) 10 mg PO TID [facility] Last Admin: 09/29/24 14:40 Dose: 10 mg Documented By: ANDREW Ondansetron HCl (Ondansetron Hcl 4 Mg/2 Ml Vial) 4 mg IVPUSH Q8H PRN PRN Reason: Nausea and Vomiting Last Admin: 09/27/24 10:12 Dose: 4 mg Documented By: DARIAN Pantoprazole Sodium (Pantoprazole Sodium 40 Mg/10 Ml Vial) 40 mg IVPUSH BID@0630,1630 [facility] Last Admin: 09/29/24 15:28 Dose: 40 mg Documented By: MARISA Polyethylene Glycol (Polyethylene Glycol 3350 17 Gm Powd.Pack) 17 gm PO DAILY [facility] Last Admin: 09/22/24 08:22 Dose: Not Given Documented By: RAMON Non-Admin Reason: Patient Refused Sodium Chloride (0.9 % Sodium Chloride Flush 3 Ml Syringe) 3 ml IVFLUSH QSHIFT [facility] Last Admin: 09/29/24 15:28 Dose: 3 ml Documented By: MARISA Sodium Zirconium Cyclosilicate (Sodium Zirconium Cyclosilicate 10 Gm Powd.Pack) 10 gm PO DAILY [facility] Last Admin: 09/25/24 08:03 Dose: 10 gm Documented By: GABI Trazodone HCl (Trazodone Hcl 50 Mg Tablet) 50 mg PO BEDTIME [facility] Last Admin: 09/29/24 00:55 Dose: 50 mg Documented By: JUANI Labs 09/29/24 07:18 09/29/24 07:18 Labs: Laboratory Results - last 24 hr 09/29/24 07:18 MCV 91.9 MCH 30.1 MCHC 32.8 RDW 18.9 H Plt Count 102 L MPV 8.6 L Immature Gran % (Auto) 1.2 H Neut % (Auto) 93.2 H Lymph % (Auto) 1.8 L Walsh % (Auto) 3.6 Eos % (Auto) 0.1 Baso % (Auto) 0.1 Lymph # (Auto) 0.3 L Walsh # (Auto) 0.6 Eos # (Auto) 0.0 Baso # (Auto) 0.0 Abs Immat Gran (auto) 0.18 H Absolute Neuts (auto) 14.3 H Absolute Nucleated RBC 0.000 Nucleated RBC % (auto) 0.0 Smear Tech's Comments VERIFIED Anion Gap 20 Estim Creat Clear Calc 20.2 Estimated GFR 19 Fasting Glucose 81 Calcium 9.1 D Total Bilirubin 0.8 AST 55 H ALT 19 Alkaline Phosphatase 51 Total Protein 6.1 L Albumin 4.8 Assessment and Plan (1) Hypotension: Status: Acute (2) Tumor lysis syndrome: Status: Acute (3) Acute kidney injury superimposed on CKD: Status: Acute (4) Hypercalcemia: Status: Acute Plan 79yo M who came from [facility] where he was undergoing STR recently 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 Started on HD 09/23 1.Hypotension (in backdrop of known hypertension) -holding amlodipine/metoprolol tartrate f -midodrine increased to 10 mg tid; stress dose of hydrocortisone 100 mg x 1 given -required albumin and BiPAP overnight -BP slowly improving with therapies 2.HyperK without EKG changes - responded to therapies - HD started daily 09/23-, Nephrology following. -follow renals/divalents 3.Tumor Lysis Syndrome - given 12 mg rasburicause 09/22 and 17.5 mg [0.2 mg/kg] 09/23 -renally-dosed allopurinol; uric acid level now 1.5 -follow renals/divalents 4.MARYSE on CKD -hemodialysis started 09/23 -nephrology following 5.HyperCa of malignancy - s/p 120 mg denosmab 09/09, 90 mg pamidronate 09/03 - calcium normalized after hemodialysis -continue dexamethasone as ordered 6.Sepsis due to complicated polymicrobial UTI -ceftriaxone 09/16-09/19, BCx negative, per Urology changed to levofloxacin 09/18-09/28 as per [facility] PCR report 09/06 growing Enterococcus faecalis, Klebsiella aerogenes, Raoultella ornithinolytica, of which all are susceptible to quinolone -Levaquin(7).. DC in a.m. Heparin Full code dispo - eventual return to SNF In my clinical judgment, the patient requires continued inpatient hospitalization for the following reasons: MARYSE requiring HD, tumor lysis syndrome Quality Stroke Does the patient have a stroke diagnosis?: No VTE Prior VTE?: No VTE Risk Level:: Medical - moderate - high VTE Device Contraindication: N/A - Device Ordered VTE Drug Contraindication: N/A - Med Ordered
[2024-09-30] VITALS (74 sets, daily range): BP systolic 50–141; BP diastolic 30–78; PULSE 88–142; RESP 14–45; TEMP 30–37.7; O2SAT 84–100
[2024-09-30] MEDS: Pantoprazole Sodium 40 MG/10 ML VIAL IVPUSH (05:47)
[2024-09-30 07:14] LABS: Basophils Percent Auto 0.1 % (0-2); Hematocrit 25.5 % (42.0-52.0); Hemoglobin 8.1 g/dl (14.0-18.0); Imm Gran Abs Auto 0.18 X10*3/uL (0.00-0.03); Imm Gran Pct Auto 1.1 % (0.0-0.4); Lymphocytes Absolute Auto 0.3 X10*3/uL (1.2-4.9); Lymphocytes Percent Auto 2.1 % (20-40); MANUAL DIFF FLAG SCAN; Mean Corpuscular HGB Conc 31.8 g/dl (31.0-36.0); Mean Corpuscular Hemoglobin 29.9 pg (27.0-33.0); Mean Corpuscular Volume 94.1 fL (80.0-98.0); Mean Platelet Volume 8.8 fL (9.4-12.4); Monocytes Absolute Auto 0.6 X10*3/uL (0.1-1.2); Monocytes Percent Auto 3.5 % (2-11); Neutrophils Absolute Auto 15.2 x10*3/uL (2.0-8.3); Neutrophils Percent Auto 93.2 % (45-73); Platelet Count 120 X10*3/uL (160-400); Red Blood Count 2.71 X10*6/uL (4.60-5.80); SCAN SMEAR FLAG 1; White Blood Count 16.3 X10*3/uL (4.8-10.8)
[2024-09-30 07:39] LABS: Alanine Aminotransferase 15 U/L (0-40); Albumin Level 4.9 g/dL (3.5-5.0); Alkaline Phosphatase 46 U/L (39-117); Anion Gap 26 (12-20); Aspartate Amino Transferase 64 U/L (5-37); Bilirubin Total 0.8 mg/dL (0.0-1.0); Blood Urea Nitrogen 65 mg/dL (9-16); Calcium 9.2 mg/dL (8.4-10.2); Carbon Dioxide 19 mmol/L (22-29); Chloride 97 mmol/L (96-108); Creatinine Clr Calc Pharmacy 16.8; Estimated Glomerular Filt Rate 15; Glucose Fasting 69 mg/dL (60-99); Potassium 4.9 mmol/L (3.3-5.1); Sodium 137 mmol/L (135-145); Total Protein 6.2 g/dL (6.5-8.0)
[2024-09-30 08:34] LABS: SLIDE REVIEW VERIFIED
[2024-09-30] MEDS: Norepinephrine Bitartrate/D5W 8 MG/250 ML PLAST..BAG 8.2 MG IVCONT (09:23)
[2024-09-30] MEDS: 0.9 % Sodium Chloride Flush 3 ML SYRINGE IVFLUSH ×2 (09:56→21:22)
--- NOTE | 2024-09-30 10:43 | PM.SEPBOLA4 ---
Sepsis Bolus Exclusion Sepsis Bolus Exclusion CHF/Renal Failure Date of Occurrence: 09/30/24 Time of Occurrence:: 09:30 This patient met severe sepsis criteria due to the following condition(s):: Hypotension In my clinical judgement the administration of 30 ml/kg of crystalloid would be detrimental to this patient due to the patient's following conditions:: Stage III or IV Chronic Kidney Disease (GFR<30) and Concern for fluid overload Other (must be specific):: IVC 2.14 cms, getting dialysis volume overloaded cannot give fluid boluses Replace the 30 mls/kg with (Zero amount not acceptable and all fluids for severe sepsis must be given at GREATER than 125 mls/hr) *Note: One of the stubbs must be documented Crystalloids amount given in mls: (rate must be at least 150cc/hr): 200 At a rate of (must be > 125 cchr):: 133
[2024-09-30 10:49] LABS: Phosphorus 3.9 mg/dL (2.7-4.5); Uric Acid 3.4 mg/dL (3.4-7.0)
[2024-09-30 11:03] LABS: Hematocrit 29.8 % (42.0-52.0); Hemoglobin 9.6 g/dl (14.0-18.0); Mean Corpuscular HGB Conc 32.2 g/dl (31.0-36.0); Mean Corpuscular Hemoglobin 30.5 pg (27.0-33.0); Mean Corpuscular Volume 94.6 fL (80.0-98.0); Mean Platelet Volume 8.9 fL (9.4-12.4); NRBC Pct Auto 0.1 /100WBC (0.0-0.2); Platelet Count 128 X10*3/uL (160-400); Red Blood Count 3.15 X10*6/uL (4.60-5.80); Red Cell Distribution Width 19.6 % (11.0-16.0); White Blood Count 16.4 X10*3/uL (4.8-10.8)
[2024-09-30 11:30] LABS: Lactic Acid 4.5 mmol/L (0.5-2.0)
--- NOTE | 2024-09-30 11:57 | MHC.CLN ---
F/U PT TRANSFERRED TO ICU INTAKE 0% X 48 HOURS PER NURSING DIET CHANGED TO NPO AT THIS TIME PT'S PREVIOUS DIET ORDER WAS LOW POTASSIUM, CHOPPED CONSISTENCY IF DIET TO RESUME RE-START ENSURE TID AND MAGIC CUP TID FRAGILE SKIN; REDNESS NOTED FOLLOWING FOR DIET ADVANCEMENT
[2024-09-30] MEDS: Phenylephrine HCL 20 MG in 0.9 % Sodium Chloride 250 ML 66.15 MG IVCONT (12:14)
[2024-09-30] MEDS: Albumin Human 25 % 100 ML 133.33 ML IV ×3 (12:32→23:49)
[2024-09-30 13:04] LABS: Reflex Lactate? Lactic Acid Added
[2024-09-30] MEDS: Heparin Sodium,Porcine 5,000 UNIT/ML VIAL 5000 UNIT SUBCUT ×2 (13:24→21:20)
--- NOTE | 2024-09-30 13:54 | MHC.SLORD ---
Speech Language Pathology Order Status: Pt NPO, RD following. CUBING MACHINE TENDER to re-assess when appropriate.
[2024-09-30] MEDS: Phenylephrine HCL 20 MG in 0.9 % Sodium Chloride 250 ML 198.45 MG IVCONT (14:30)
--- NOTE | 2024-09-30 14:53 | ECG_ITS ---
Test Reason : TACHYCARDIA Blood Pressure : */* mmHG Vent. Rate : 123 BPM Atrial Rate : 123 BPM P-R Int : 144 ms QRS Dur : 98 ms QT Int : 304 ms P-R-T Axes : 25 -31 55 degrees QTcB Int : 435 ms Sinus tachycardia with Premature atrial complexes Left axis deviation Low voltage QRS Possible Anterolateral infarct (cited on or before 03-Sep-2024) Abnormal ECG When compared with ECG of 23-Sep-2024 07:43, Premature atrial complexes are now Present Referred By: Talon Arias Electronically Signed By: Cain Mckinnon
--- NOTE | 2024-09-30 15:00 | MHC.CM.PN ---
Pt transferred to ICU with hypotension requiring intervention. Pt had been at STR - from home w/spouse. CM to follow
[2024-09-30] MEDS: Phenylephrine HCL 20 MG in 0.9 % Sodium Chloride 250 ML 363.83 MG IVCONT (15:24)
[2024-09-30 15:30] LABS: Reflex Lactate? 2 Y
[2024-09-30] MEDS: Vasopressin 20 UNIT/100 ML INFUS..BTL 12 UNIT IVCONT ×2 (15:46→21:08)
[2024-09-30] MEDS: Phenylephrine HCL 20 MG in 0.9 % Sodium Chloride 250 ML 330.75 MG IVCONT (16:06)
[2024-09-30 16:14] LABS: ~Lactic Acid-LAB USE ONLY 8.7 mmol/L (0.5-2.0)
[2024-09-30] MEDS: Phenylephrine HCL 20 MG in 0.9 % Sodium Chloride 250 ML 231.53 MG IVCONT ×3 (17:08→19:32)
--- NOTE | 2024-09-30 17:13 | W.PM.CCCN ---
History of Present Illness Data of Consult Service Date: 09/30/24 Primary Care Provider: Cade Enriquez MD HPI Reason for consult: Hypotension 79-year-old gentleman who lives in a alf who was previously admitted to the hospital for malignancy related hypercalcemia and discharged he is readmitted 5 days later on 09/16/2024 for tumor lysis syndrome leading to acute kidney injury currently on renal replacement therapy. Throughout the admissions his blood pressures remained on the lower side receiving multiple boluses of albumin, since yesterday he became hypoxic for which he was placed on a CPAP support and this morning his blood pressures dropped to 50 systolic so he is being transferred to medical ICU for vasopressor support. Biopsy from the peritoneal mass showed necrotic mass but could not identify underlying malignancy so a repeat lung biopsy has been sent on 09/24/2024 Review of Systems Review of Systems: Unable to obtain as patient is in severe distress PMFSH Past Medical History Medical History (Updated 09/30/24 @ 17:23 by Talon Arias MD) Urinary retention Rene hematuria Acute urinary retention Radiation cystitis Hypertension Diverticulosis Overweight (BMI 25.0-29.9) History of prostate cancer Renal cyst Vitamin D deficiency Osteoarthritis of left knee Impaired fasting glucose Pure hypercholesterolemia Benign essential hypertension Family History Family History Father Cancer Mother Colon cancer Surgical History Surgical History Hx of right inguinal hernia repair (02/16/23) History of ankle surgery History of colonoscopy History of meniscectomy of left knee (~06/05/12) Hx of prostatectomy Hx of umbilical hernia repair Social History Social History Household Members: Spouse Housing: House Are you a primary rn managed care to a significant other at home: No Do you presently have visiting nurse or other home services: No Alcohol intake: current Alcohol intake frequency: 0-2 drinks per day Alcohol type: beer Comment: . 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 Cognitive needs: No Hearing needs: No Vision needs: Yes (Glasses) Meds Allergies Allergy/AdvReac Type Severity Reaction Status Date / Time No Known Allergies Allergy Verified 09/16/24 09:45 Active Medications: Current Medications Acetaminophen (Acetaminophen 325 Mg Tablet) 650 mg PO Q6H PRN PRN Reason: Pain, Mild 1-3,fever,headache Al Hydroxide/Mg Hydroxide (Magnesium Hydrox/Alum Hydrox 30 Ml Oral.Susp) 30 ml PO Q6H PRN PRN Reason: reflux Allopurinol (Allopurinol 100 Mg Tablet) 50 mg PO DAILY [facility] Last Admin: 09/30/24 09:55 Dose: Not Given Bisacodyl (Bisacodyl 10 Mg Supp.Rect) 10 mg HI DAILY PRN PRN Reason: Constipation Dexamethasone (Dexamethasone 2 Mg Tablet) 2 mg PO DAILY [facility] Stop: 10/01/24 08:59 Last Admin: 09/30/24 09:56 Dose: Not Given Guaifenesin (Guaifenesin 200 Mg/10 Ml 10 Ml Liquid) 10 ml PO Q4H PRN PRN Reason: Cough Last Admin: 09/28/24 21:32 Dose: 10 ml Heparin Sodium (Porcine) (Heparin Sodium,Porcine 5,000 Unit/Ml Vial) 5,000 unit SUBCUT Q12H [facility] Last Admin: 09/30/24 13:24 Dose: 5,000 unit Norepinephrine Bitartrate (Levophed) 8 mg in 250 mls @ 0 mls/hr IVCONT .Q0M [facility]; Protocol Last Titration: 09/30/24 12:16 Dose: 0 mcg/kg/min, 0 mls/hr Phenylephrine HCl 20 mg/ (Sodium Chloride) 252 mls @ 0 mls/hr IVCONT .Q0M [facility]; Protocol Last Admin: 09/30/24 17:08 Dose: 3.5 mcg/kg/min, 231.53 mls/hr Vasopressin (Vasostrict) 20 unit in 100 mls @ 12 mls/hr IVCONT .Q8H20M [facility]; Protocol Last Admin: 09/30/24 15:46 Dose: 0.04 unit/min, 12 mls/hr Magnesium Hydroxide (Milk Of Magnesia 30 Ml Oral.Susp) 30 ml PO DAILY PRN PRN Reason: Constipation Last Admin: 09/27/24 05:22 Dose: 30 ml Melatonin (Melatonin 3 Mg Tablet) 6 mg PO BEDTIME PRN PRN Reason: Insomnia Midodrine (Midodrine Hcl 5 Mg Tablet) 5 mg PO DAILY PRN PRN Reason: Dialysis hypotension Midodrine (Midodrine Hcl 10 Mg Tablet) 10 mg PO TID [facility] Last Admin: 09/30/24 14:14 Dose: Not Given Ondansetron HCl (Ondansetron Hcl 4 Mg/2 Ml Vial) 4 mg IVPUSH Q8H PRN PRN Reason: Nausea and Vomiting Last Admin: 09/27/24 10:12 Dose: 4 mg Sodium Chloride (0.9 % Sodium Chloride Flush 3 Ml Syringe) [facility] Last Admin: 09/30/24 15:46 Dose: Not Given Home Medications ?Medication ?Instructions ?Recorded ?Confirmed ?Last Taken ?Type acetaminophen 325 mg tablet 650 mg PO Q4H PRN Mild Pain (Scale 09/16/24 09/16/24 Unknown History Score 1-4) acetaminophen 325 mg tablet 650 mg PO Q6H PRN Fever 09/16/24 09/16/24 Unknown History bisacodyl 10 mg rectal suppository 10 mg HI DAILY PRN Constipation 09/16/24 09/16/24 Unknown History dexamethasone 1 mg tablet See Taper PO DAILY 09/16/24 09/16/24 Unknown History magnesium hydroxide 400 mg/5 mL 30 ml PO DAILY PRN Constipation 09/16/24 09/16/24 Unknown History oral suspension (Milk of Magnesia) ondansetron 4 mg disintegrating 4 mg PO Q6H PRN Nausea And Vomiting 09/16/24 09/16/24 Unknown History tablet sodium phosphates 19 gram-7 118 ml HI DAILY PRN Constipation 09/16/24 09/16/24 Unknown History gram/118 mL enema Physical Exam Vital Signs: Vital Signs: Last Vital Signs Temp 96.8 F 09/30/24 12:00 Pulse 118 H 09/30/24 17:08 Resp 36 H 09/30/24 16:58 BP 96/57 L 09/30/24 17:08 Pulse Ox 99 09/30/24 16:58 O2 Del Method High Flow Nasal C annula 09/30/24 16:58 O2 Flow Rate 55 09/30/24 16:58 FiO2 35 09/30/24 16:58 BMI result Body Mass Index 28.5 General: Elderly gentleman in severe acute distress, chronically ill appearing and tired appearing Nutritional Appearance: Poorly nourished and under weight with significant edema Eyes: appearance normal, both eyes and all related structures; Alignment and Position: alignment normal and position normal Neck: No lymphadenopathy, no thyromegaly Resp: bilateral air entry equal, bilateral diffuse crackles heard Cardio: Regular rate, regular rhythm; Heart sounds: S1 normal heart sound present and S2 normal heart sound present GI: soft, nontender, no guarding, no hepatosplenomegaly : bladder normal to inspection, bladder normal to palpation, no renal angle tenderness Skin: no rashes or lesions noted and elasticity normal Neuro: Confused but following some commands Results Labs 09/30/24 10:26 09/30/24 06:24 Labs: Short CBC 09/30/24 09/30/24 Range/Units 06:24 10:26 WBC 16.3 H 16.4 H (4.8-10.8) X10*3/uL Hgb 8.1 L 9.6 L (14.0-18.0) g/dl Hct 25.5 L 29.8 L (42.0-52.0) % Plt Count 120 L 128 L (160-400) X10*3/uL BMP 09/30/24 06:24 Sodium 137 Potassium 4.9 Chloride 97 Carbon Dioxide 19 L BUN 65 H Creatinine 3.83 H Calcium 9.2 Liver Function 09/30/24 Range/Units 06:24 Total Bilirubin 0.8 (0.0-1.0) mg/dL AST 64 H (5-37) U/L ALT 15 (0-40) U/L Alkaline Phosphatase 46 (39-117) U/L Albumin 4.9 (3.5-5.0) g/dL Microbiology Microbiology Results: Microbiology 09/16/24 11:52 Blood - Venous Blood Culture - Final No growth after 5 days. 09/16/24 11:35 Blood - Venous Blood Culture - Final No growth after 5 days. 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 Started on HD 09/23 Neuro: Acute encephalopathy possibly due to metabolic encephalopathy Close neurological status monitoring in the ICU every hour Cardiac: Distributive shock : Possibly secondary to tumor lysis syndrome leading to 3rd space loss Levophed switch to phenylephrine due to tachycardia. Vasopressin added during the dialysis as hypotension worsened Respiratory: Acute hypoxemic respiratory failure due to pulmonary edema Switch the patient from CPAP to high-flow oxygen 35% oxygen at 50 L/min GI: We will start on TPN Renal: Acute kidney injury possibly secondary to uremia nephropathy secondary to tumor lysis syndrome Close to anuric, currently on renal replacement therapy Undergoing ultrafiltration only this morning, we will plan for dialysis tomorrow We will closely monitor I's and O's Avoid nephrotoxic medications Heme: Chronic anemia, closely monitor H&H, transfuse for hemoglobin less than 7 grams/deciliter Endocrine: Blood sugars under control Sliding scale insulin as needed Infectious disease: We will send repeat pancultures Not on antibiotics Musculoskeletal: Decubitus ulcer prevention protocol Lines: Right IJ hemodialysis catheter placed on 08/24/2024 Prophylaxis: Lovenox, pantoprazole No concern for sepsis, patient is afebrile, hypotensive secondary to 3rd spacing from tumor lysis syndrome, leukocytosis secondary to underlying malignancy. Total critical care time spent is about 60 minutes on acute hemodynamic stabilization patient presented with systolic blood pressure of 50 mm Hg, close hemodynamic monitoring, stabilizing the blood pressure during hemodialysis while on multiple vasopressor support, close respiratory status monitoring, review of labs and images, chart review at this time is excluding any procedural time
[2024-09-30 18:00] LABS: Lactic Acid 6.7 mmol/L (0.5-2.0)
[2024-09-30 19:35] LABS: Reflex Lactate? Lactic Acid Added
[2024-09-30 20:21] LABS: ~Lactic Acid-LAB USE ONLY 6.3 mmol/L (0.5-2.0)
[2024-09-30] MEDS: Phenylephrine HCL 100 MG in 0.9 % Sodium Chloride 250 ML 6.83 MG IVCONT (20:57)
[2024-09-30 21:51] LABS: Reflex Lactate? 2 Y
[2024-09-30] MEDS: Rocuronium Bromide 50 MG/5 ML VIAL 30 MG IVPUSH (22:01)
[2024-09-30] MEDS: propofoL 200 MG/20 ML VIAL 20 MG IVPUSH (22:15)
--- NOTE | 2024-09-30 22:26 | PM.CCN ---
Critical Care Event Note Summary Date of Service: 09/30/24 Code activated: No Narrative: This case had a high probability of a clinically significant, sudden, or life threatening deterioration of this patient's condition which required my full and direct attention, intervention and personal management. Critical Care Time (minutes): 60 Comment: From the beginning of the shift and during clinical rounds, the patient appeared to be breathing heavily despite of BiPAP, he was having minimal accessory muscle usage and tachypnea with a rate of 28-34 breaths per minute.? A couple hours later, the patient manifested that he was getting tired and that he felt his breathing was too fast.? I had a lengthy discussion with the patient and his nurse at bedside regarding the possibilities of putting him back on BiPAP which he did not like but said okay to if he had to as well as the possibility of being intubated if it did not work. ?At the same time, the patient was on vasopressin, and phenylephrine with marginal blood pressures. ?The patient was getting about 250 cc fluid with phenylephrine administration every hour, the request was made to change to high concentration to avoid further fluid overload.? The patient does not void. Eventually the patient tired out, he was tried on BiPAP but did not tolerated, decision was made to intubate, upon speaking to Dr. Arias; he asked to put him back on BiPAP again which we tried but the patient did not tolerate. ?He was having significant use of accessory muscles and tachypnea, his blood pressure was too low for me to give him opioids for work of breathing.? IV access was poor with single access on the cephalic area of the left arm.? He did have a pigtail from the dialysis catheter but medications were not compatible. ?At this point, we made the decision to intubate the patient but given lack of IV access I do not think ketamine push worked and rather it infiltrated.? The patient continued to have mental status changes until a crush intubation had to be done. ?Please see procedure note for details of intubation. ?Locally respiratory team was at bedside and the patient was being oxygenated with an Ambu bag. Given the rapid deterioration acute mental status change I did not have to sedate him, there was some resistance for which rocuronium was given.? Intubation was successful. REVISED ASSESSMENT: 1.WORSENED ACUTE HYPOXIC RESPIRATORY FAILURE AND DISTRESS RULE OUT ASPIRATION, OBSTRUCTIVE OR POSTOBSTRUCTIVE PNEUMONIA, PE, 2. ACUTE LACTIC ACIDOSIS 3.HYPOTENSION RULE OUT SEPSIS 4. Acute on chronic anemia of chronic disease 5. Acute thrombocytopenia likely due to illness 6. Undifferentiated metastatic carcinoma 7. Distributive shock likely tumor lysis syndrome PLAN OF CARE Patient was emergently intubated, this was successful.? Patient will need a central line, in the meantime we will cover him with meropenem 1 g IV x1 and to be continued after dialysis.? The patient is significantly edematous and a high risk of developing pulmonary congestion therefore no IV fluids will be given.? In fact pressors sanjiv be switched to high concentration.? Central line will be placed the left neck area.? CT of the chest abdomen and pelvis will be ordered for completion of workup. CTA CHEST IMPRESSION: 1. Possible small isolated segmental pulmonary embolus in a right lower lobe segmental branch. No other pulmonary emboli seen. 2. Interval increase of size and number of pulmonary nodules. Interval development of pleural-based metastases. 3. Small right and moderate left pleural effusion. 4. Temporary hemodialysis catheter with tip in the intrahepatic IVC. Consider pulling back by 7.6 cm for positioning within the right atrium. CT ABD and PELVIS IMPRESSION: 1. Interval progression of disease, with extensive metastatic disease, and large masses within the pelvis and obliterating the right kidney. 2. Persistent moderate hydronephrosis of the left kidney. Likely compression of the left ureter by tumor mass. 3. Large volume ascites. Diffuse body wall anasarca. There is compression of the IVC secondary to masses. Bilateral pleural effusions. 4. Central venous catheter with tip in the perihepatic IVC. Given the above-mentioned findings of the CT of the chest, I will discuss the case with Dr. Arias in a couple hours before making the decision of anticoagulating him; patient already has tinged bloody secretions.? His H&H is 7.3 and 23.8 respectively, his platelets have come down to 114.? He did received sodium bicarbonate overnight, he will likely need dialysis today. Critical care time used for critical evaluation of this patient, diagnosis, treatment and coordination of care, review her records and documentation TOTAL CRITICAL CARE TIME? 60? MIN . discussion and coordination with consultants, completely separate from any procedures performed. Patient's care was discussed in detail with .? He is aware of all the above as well as the plan of care for this patient.
[2024-09-30] MEDS: propofoL 1,000 MG/100 ML VIAL 10.5 MG IVCONT (22:30)
[2024-09-30 22:43] LABS: VBG Base Excess -12.1 mmol/L; VBG HCO3 12 mmol/L (22-26); VBG pCO2 24 mmHg; VBG pH 7.31 (7.32-7.43); VBG pO2 55 mmHg
[2024-09-30 22:49] LABS: Basophils Percent Auto 0.1 % (0-2); Hematocrit 25.9 % (42.0-52.0); Hemoglobin 8.2 g/dl (14.0-18.0); Imm Gran Abs Auto 0.25 X10*3/uL (0.00-0.03); Imm Gran Pct Auto 1.3 % (0.0-0.4); Lymphocytes Absolute Auto 0.3 X10*3/uL (1.2-4.9); Lymphocytes Percent Auto 1.7 % (20-40); MANUAL DIFF FLAG SCAN; Mean Corpuscular HGB Conc 31.7 g/dl (31.0-36.0); Mean Corpuscular Hemoglobin 30.4 pg (27.0-33.0); Mean Corpuscular Volume 95.9 fL (80.0-98.0); Monocytes Absolute Auto 0.6 X10*3/uL (0.1-1.2); Monocytes Percent Auto 3.1 % (2-11); NRBC Pct Auto 0.3 /100WBC (0.0-0.2); Neutrophils Absolute Auto 17.4 x10*3/uL (2.0-8.3); Neutrophils Percent Auto 93.8 % (45-73); Platelet Count 114 X10*3/uL (160-400); Red Cell Distribution Width 20.1 % (11.0-16.0); SCAN SMEAR FLAG 1; White Blood Count 18.6 X10*3/uL (4.8-10.8)
--- NOTE | 2024-09-30 23:01 | P.PCNCC_ITS ---
Procedures Date of Service Date of Service: 09/30/24 <PARAMJIT Chow - Last Filed: 09/30/24 23:06> 10/01/24 <Talon Arias MD - Last Filed: 10/01/24 08:22> Intubation Intubation Comments: Initially was on elective intubation but the patient quickly deteriorated and he went from a rapid sequence intubation ( although he quickly became somnolent) change that toto a crash intubation as the patient became obtunded and unresponsive. The patient was being supported with Ambu bag satting 99%. His blood pressure was soft, Levophed was added. There was some rigidity but the patient was otherwise unconscious, rocuronium was given and subsequently small dose of propofol was started. <PARAMJIT Chow - Last Filed: 09/30/24 2 3:06> Consent for Procedure: Elective - informed consent obtained (from patient verbally to me and his RN ) <PARAMJIT Chow - Last Filed: 09/30/24 23:06> Time out performed: Yes <PARAMJIT Chow - Last Filed: 09/30/24 23:06> Sedative: other ( Initially ketamine was going to be administered but the medication had infiltrated in the right cephalic peripheral IV which initially the nurse reported that was working but it was not) <PARAMJIT Chow - Last Filed: 09/30/24 23:06> Paralytic: rocuronium <PARAMJIT Chow - Last Filed: 09/30/24 23:06> Mg given: 30 <PARAMJIT Chow - Last Filed: 09/30/24 23:06> Laryngoscope: fiber optic video scope <PARAMJIT Chow - Last Filed: 09/30/24 23:06> ET tube size: 7 <PARAMJIT Chow - Last Filed: 09/30/24 23:06> ET tube uncuffed: Yes <PARAMJIT Chow Last Filed: 09/30/24 23:06> Tube secured depth (cm): 23 <PARAMJIT Chow - Last Filed: 09/30/24 23:06> Tube secured location: lips <PARAMJIT Chow - Last Filed: 09/30/24 23:06> Tube placement confirmation: visualized tube passing through cords, equal breath sounds bilaterally, no breath sounds over epigastrium and confirmation by capnometry <PARAMJIT Chow - Last Filed: 09/30/24 23:06> Patient tolerated procedure: well, no complications and other ( post intubation x-ray showed the tip of the tube deviated towards the right main, it was pulled back 2 cm from 25-23 at the lip. Repeat x-ray shows tip of the tube at 4 cm above the rickie an OG tube in good position in the stomach.) <PARAMJIT Chow - Last Filed: 09/30/24 23:06> Intubation complications: none <PARAMJIT Chow Last Filed: 09/30/24 23:06>
[2024-09-30 23:06] LABS: SLIDE REVIEW VERIFIED
[2024-09-30 23:09] LABS: Alanine Aminotransferase 19 U/L (0-40); Alkaline Phosphatase 54 U/L (39-117); Anion Gap 28 (12-20); Aspartate Amino Transferase 75 U/L (5-37); Bilirubin Total 0.7 mg/dL (0.0-1.0); Blood Urea Nitrogen 73 mg/dL (9-16); Calcium 8.5 mg/dL (8.4-10.2); Carbon Dioxide 14 mmol/L (22-29); Chloride 100 mmol/L (96-108); Creatinine Clr Calc Pharmacy 14.9; Estimated Glomerular Filt Rate 13; Glucose Random 127 mg/dL (60-115); Potassium 5.2 mmol/L (3.3-5.1); Sodium 137 mmol/L (135-145); Total Protein 6.2 g/dL (6.5-8.0); ~Lactic Acid-LAB USE ONLY 6.7 mmol/L (0.5-2.0)
[2024-09-30] MEDS: Sodium Bicarbonate 8.4% 50 MEQ/50 ML SYRINGE 100 MEQ IVPUSH (23:14)
[2024-09-30] MEDS: Meropenem 1 GM VIAL IVPUSH (23:14)
[2024-09-30 23:15] LABS: Venous Blood Gas Refer to POC result
--- NOTE | 2024-09-30 23:35 | PM.SEPBOLA4 ---
Sepsis Bolus Exclusion Sepsis Bolus Exclusion CHF/Renal Failure Date of Occurrence: 09/30/24 Time of Occurrence:: 21:30 This patient met severe sepsis criteria due to the following condition(s):: Hypotension and Lactate>=4mmol/L In my clinical judgement the administration of 30 ml/kg of crystalloid would be detrimental to this patient due to the patient's following conditions:: NYHA class III or IV Heart Failure(symptoms with low exertion or rest) Other (must be specific):: ANASARCA Pulm edema, scrotal edema Replace the 30 mls/kg with (Zero amount not acceptable and all fluids for severe sepsis must be given at GREATER than 125 mls/hr) *Note: One of the stubbs must be documented Colloids amount given in mls:: 200 At a rate of (must be > 125 cchr):: 133
[2024-09-30] MEDS: dilTIAZem HCL 50 MG/10 ML VIAL 10 MG IVPUSH (23:43)
[2024-10-01] VITALS (34 sets, daily range): BP systolic 84–133; BP diastolic 52–73; PULSE 96–131; RESP 20–35; TEMP 35–37.5; O2SAT 95–98; BMI 28.5
[2024-10-01] MEDS: Albumin Human 25 % 100 ML 133.33 ML IV (00:40)
[2024-10-01] MEDS: iohexoL 350 MG/ML 100 ML INFUS..BTL 65 ML IV (01:44)
[2024-10-01] MEDS: Norepinephrine Bitartrate/D5W 8 MG/250 ML PLAST..BAG 49.22 MG IVCONT (02:15)
--- NOTE | 2024-10-01 02:35 | W.PM.CCHP ---
Procedures Date of Service Date of Service: 10/01/24 <PARAMJIT Chow - Last Filed: 10/01/24 05:33> 10/01/24 <Talon Arias MD - Last Filed: 10/01/24 08:22> Central Line Placement Left IJ: Consent for Procedure: Emergent-no informed consent obtained <PARAMJIT Chow - Last Filed: 10/01/24 05:33> Time out performed: Yes <PARAMJIT Chow - Last Filed: 10/01/24 05:33> Sterile Technique Used: Yes <PARAMJIT Chow - Last Filed: 10/01/24 05:33> Patient placed on monitor/pulse ox: Yes <PARAMJIT Chow - Last Filed: 10/01/24 05:33> prep: mask, gown, gloves and other (cap) <PARAMJIT Chow - Last Filed: 10/01/24 05:33> Central line prep: Chlorhexidine scrub <PARAMJIT Chow - Last Filed: 10/01/24 05:33> Ultrasound used for placement: Yes <PARAMJIT Chow - Last Filed: 10/01/24 05:33> Central line lumen inserted: triple (20 cm) <PARAMJIT Chow - Last Filed: 10/01/24 05:33> Post procedure: sutured in place, good blood return, all ports aspirated, flushed, capped and sterile dressing applied <PARAMJIT Chow - Last Filed: 10/01/24 05:33> Post procedure x-ray: tip of catheter in good position and no pneumothorax seen <PARAMJIT Chow - Last Filed: 10/01/24 05:33> Patient tolerated procedure: well and no complications <PARAMJIT Chow Last Filed: 10/01/24 05:33> Complications: none <PARAMJIT Chow Last Filed: 10/01/24 05:33>
[2024-10-01] MEDS: Phenylephrine HCL 100 MG in 0.9 % Sodium Chloride 250 ML 40.95 MG IVCONT (03:12)
[2024-10-01 04:30] LABS: VBG Base Excess -11.2 mmol/L; VBG HCO3 13 mmol/L (22-26); VBG pCO2 25 mmHg; VBG pH 7.32 (7.32-7.43); VBG pO2 46 mmHg
[2024-10-01 04:36] LABS: Venous Blood Gas Refer to POC result
[2024-10-01] MEDS: Vasopressin 20 UNIT/100 ML INFUS..BTL 12 UNIT IVCONT ×2 (05:00→13:28)
[2024-10-01] MEDS: propofoL 1,000 MG/100 ML VIAL 10.5 MG IVCONT (05:06)
[2024-10-01 05:09] LABS: Basophils Percent Auto 0.1 % (0-2); Hematocrit 23.8 % (42.0-52.0); Hemoglobin 7.3 g/dl (14.0-18.0); Imm Gran Abs Auto 0.18 X10*3/uL (0.00-0.03); Imm Gran Pct Auto 1.2 % (0.0-0.4); Lymphocytes Absolute Auto 0.3 X10*3/uL (1.2-4.9); Lymphocytes Percent Auto 2.1 % (20-40); MANUAL DIFF FLAG SCAN; Mean Corpuscular HGB Conc 30.7 g/dl (31.0-36.0); Mean Corpuscular Hemoglobin 29.7 pg (27.0-33.0); Mean Corpuscular Volume 96.7 fL (80.0-98.0); Mean Platelet Volume 9.2 fL (9.4-12.4); Monocytes Absolute Auto 0.6 X10*3/uL (0.1-1.2); Monocytes Percent Auto 4.1 % (2-11); NRBC Pct Auto 0.5 /100WBC (0.0-0.2); Neutrophils Absolute Auto 14.4 x10*3/uL (2.0-8.3); Neutrophils Percent Auto 92.5 % (45-73); Platelet Count 114 X10*3/uL (160-400); Red Blood Count 2.46 X10*6/uL (4.60-5.80); Red Cell Distribution Width 19.9 % (11.0-16.0); SCAN SMEAR FLAG 1; White Blood Count 15.5 X10*3/uL (4.8-10.8)
[2024-10-01 05:32] LABS: Alanine Aminotransferase 23 U/L (0-40); Albumin Level 4.9 g/dL (3.5-5.0); Alkaline Phosphatase 44 U/L (39-117); Anion Gap 32 (12-20); Aspartate Amino Transferase 94 U/L (5-37); Bilirubin Total 0.8 mg/dL (0.0-1.0); Blood Urea Nitrogen 75 mg/dL (9-16); Calcium 8.3 mg/dL (8.4-10.2); Carbon Dioxide 12 mmol/L (22-29); Chloride 99 mmol/L (96-108); Creatinine Clr Calc Pharmacy 14.6; Estimated Glomerular Filt Rate 13; Glucose Fasting 119 mg/dL (60-99); Magnesium 2.5 mg/dL (1.6-2.6); Phosphorus 4.6 mg/dL (2.7-4.5); Potassium 5.1 mmol/L (3.3-5.1); Sodium 138 mmol/L (135-145)
[2024-10-01] MEDS: Sodium Bicarbonate 8.4% 50 MEQ/50 ML SYRINGE 100 MEQ IVPUSH (05:43)
--- NOTE | 2024-10-01 06:00 | HO.SKINPHOTO ---
Location: coccyx/buttocks. Photo taken 09/30/24 @ 19:50
--- NOTE | 2024-10-01 06:35 | PC.NURSE ---
Assumed care of this patient at 19:00. ? Pt was initially A&Ox4, soft spoken.?? Pt was ST 110-120?s in the evening, on standard concentration neosynephrine and vasopressin to maintain BP on assuming care, infusing via Mahurkar catheter RN-accessible pigtail/central access. The pt denied chest pain or palpitations. Afebrile on rectal temp. ? Pt was on HFNC on assuming care, managed by RT. Pt was initially tachypneic though denied sob; breathing was even and unlabored without retractions or other signs of distress. As the evening progressed, the patient developed worsening respiratory failure as evidenced by retractions to the mid-clavicular level, persistent tachypnea, and a notable increased work of breathing compared to chart writer?s initial interaction. When respiratory status was reassessed with the patient, the patient wrote ?I am tired , with the covering PA Joseph Degroot present. With this chart writer present, the PA discussed with the patient the possibility of needing intubation, which this patient was agreeable to should that become necessary. Bipap was trialed first by RT per the PA without improvement. During this time, the patient required additional pressor support, and levophed was added in addition to the vasopressin and now 5x concentrated neosynephrine, infusing via the HD pigtail line. A right radial A-line was attempted by the provider due to difficulty obtaining correlating cuff BPs on bilateral arms, though unsuccessful.?? PA made the decision to intubate this patient. The patient was transitioned from bipap and ventilated with a BVM by RT during induction meds, given per PA verbal orders. 200mg ketamine was given at 21:37 though the patient remained drowsy but awake. Another 200mg of ketamine was given at 21:39 per PA, without any change in level of sedation.? Due to concern for infiltration/ loss of this (second) access site while attempting to obtain accurate correlating cuff BPs, the patient was placed back on the bipap temporarily per PA with HOB elevated until replacement peripheral IV was able to be obtained and intubation efforts resumed. The pt was intubated without further issue: 7cm ETT, initially 25cm at the lip. +breathe sounds bilaterally and +color change on filter test. CXR obtained for placement confirmation showed the ETT above the rickie. The tube was adjusted by RT per PA verbal orders, since at 22cm at the lip. The patient continues to tolerate the vent, ACVC settings, with sedation.? Due to difficulty obtaining/maintaining access and multiple pressors/sedation medications, the PA placed a triple lumen IJ to the left neck at ~02:20 via ultrasound, done so without incidence. Confirmation CXR was obtained with PA okay to use. Abdominal assessment d/w PA. An OG tube was also placed due to concern for bilious secretions suctioned from the oral airway during ETT adjustment. Repeat CXR obtained showing +placement. The OG tube was placed to intermittent LWS per PA verbal order, with an additional small amount of bilious green output. PA orders were placed for CT abdomen, also CT chest to r/o PE due to pt?s persistent tachycardia in the absence of fever, despite administration of IVP cardizem, and given the pt?s hx of CA with metastasis (please see imaging for full details). Anticoagulation with HSQ and SCDs at this time due to concerns for hematura as evidenced by tea colored urine with brown shreds via chronic medina. Critical lactic and creatinine levels reported to PA or criticals taken from lab by PARAMJIT huston. Foams applied to coccyx and b/l heels. Pt continues on low air loss repositioning mattress with heels offloaded and q2hr repositioning. Please see shift assessments, tasks in the worklist, and MAR for full details.
[2024-10-01] MEDS: 0.9 % Sodium Chloride Flush 3 ML SYRINGE IVFLUSH (07:58)
[2024-10-01 08:14] LABS: Uric Acid 4.6 mg/dL (3.4-7.0)
--- NOTE | 2024-10-01 08:30 | P.PNCC_ITS ---
Subjective Subjective Date of Service: 10/01/24 Interval History: Has significant progression of the disease in his lungs and abdomen on the repeat CT scan. CT abdomen pelvis shows severe increase in the size of the mass compressing the IVC is, compressing the kidneys and ureter. Intubated over night due to worsening respiratory failure and on multiple vasopressor support Critical Care Time (minutes): 35 Physical Exam 2 Vital Signs: Vital Signs: Last Vital Signs Temp 99.5 F 10/01/24 07:57 Pulse 117 H 10/01/24 08:00 Resp 30 H 10/01/24 08:00 BP 95/59 L 10/01/24 08:00 Pulse Ox 96 10/01/24 08:00 O2 Del Method Mechanical Ventil ation 10/01/24 08:00 O2 Flow Rate 55 09/30/24 20:53 FiO2 30 10/01/24 08:00 BMI result Body Mass Index 28.5 General: Elderly gentleman in severe acute distress, ill appearing and tired appearing Nutritional Appearance: well nourished and overweight Eyes: appearance normal, both eyes and all related structures; Alignment and Position: alignment normal and position normal Neck: No lymphadenopathy, no thyromegaly Resp: bilateral air entry equal, occasional added sounds present Cardio: Regular rate, regular rhythm; Heart sounds: S1 normal heart sound present and S2 normal heart sound present GI: soft, nontender, no guarding, no hepatosplenomegaly : bladder normal to inspection, bladder normal to palpation, no renal angle tenderness Skin: no rashes or lesions noted and elasticity normal Neuro: Sedated, no focal deficits Objective Data Labs 10/01/24 04:22 10/01/24 04:22 Labs: Laboratory Results - last 24 hr 09/30/24 09/30/24 09/30/24 06:24 10:26 11:01 WBC 16.3 H 16.4 H RBC 2.71 L 3.15 L Hgb 8.1 L 9.6 L Hct 25.5 L 29.8 L MCV 94.1 94.6 MCH 29.9 30.5 MCHC 31.8 32.2 RDW 19.0 H 19.6 H Plt Count 120 L 128 L MPV 8.8 L 8.9 L Immature Gran % (Auto) 1.1 H Neut % (Auto) 93.2 H Lymph % (Auto) 2.1 L [place] % (Auto) 3.5 Eos % (Auto) 0.0 Baso % (Auto) 0.1 Lymph # (Auto) 0.3 L [place] # (Auto) 0.6 Eos # (Auto) 0.0 Baso # (Auto) 0.0 Abs Immat Gran (auto) 0.18 H Absolute Neuts (auto) 15.2 H Absolute Nucleated RBC 0.000 0.020 H Nucleated RBC % (auto) 0.0 0.1 Smear Tech's Comments VERIFIED Hold Purple Top SEE NOTE VBG pH VBG pCO2 VBG pO2 VBG HCO3 VBG O2 Saturation VBG Base Excess Sodium Potassium Chloride Carbon Dioxide Anion Gap BUN Creatinine Estim Creat Clear Calc Estimated GFR Random Glucose Fasting Glucose Lactic Acid 4.5 H* Lactic Acid F/U @ 2Hr Lactic Acid F/U @ 4Hr Uric Acid 3.4 Calcium Phosphorus 3.9 Magnesium Total Bilirubin AST ALT Alkaline Phosphatase Total Protein Albumin 09/30/24 09/30/24 09/30/24 13:25 15:39 17:29 WBC RBC Hgb Hct MCV MCH MCHC RDW Plt Count MPV Immature Gran % (Auto) Neut % (Auto) Lymph % (Auto) [place] % (Auto) Eos % (Auto) Baso % (Auto) Lymph # (Auto) [place] # (Auto) Eos # (Auto) Baso # (Auto) Abs Immat Gran (auto) Absolute Neuts (auto) Absolute Nucleated RBC Nucleated RBC % (auto) Smear Tech's Comments Hold Purple Top VBG pH VBG pCO2 VBG pO2 VBG HCO3 VBG O2 Saturation VBG Base Excess Sodium Potassium Chloride Carbon Dioxide Anion Gap BUN Creatinine Estim Creat Clear Calc Estimated GFR Random Glucose Fasting Glucose Lactic Acid 6.7 H* Lactic Acid F/U @ 2Hr 4.0 H* Lactic Acid F/U @ 4Hr 8.7 H* Uric Acid Calcium Phosphorus Magnesium Total Bilirubin AST ALT Alkaline Phosphatase Total Protein Albumin 09/30/24 09/30/24 09/30/24 19:45 22:38 22:39 WBC 18.6 H RBC 2.70 L Hgb 8.2 L Hct 25.9 L MCV 95.9 MCH 30.4 MCHC 31.7 RDW 20.1 H Plt Count 114 L MPV 9.0 L Immature Gran % (Auto) 1.3 H Neut % (Auto) 93.8 H Lymph % (Auto) 1.7 L [place] % (Auto) 3.1 Eos % (Auto) 0.0 Baso % (Auto) 0.1 Lymph # (Auto) 0.3 L [place] # (Auto) 0.6 Eos # (Auto) 0.0 Baso # (Auto) 0.0 Abs Immat Gran (auto) 0.25 H Absolute Neuts (auto) 17.4 H Absolute Nucleated RBC 0.050 H Nucleated RBC % (auto) 0.3 H Smear Tech's Comments VERIFIED Hold Purple Top VBG pH 7.31 L VBG pCO2 24 VBG pO2 55 VBG HCO3 12 L VBG O2 Saturation 75.0 VBG Base Excess -12.1 Sodium 137 Potassium 5.2 H Chloride 100 Carbon Dioxide 14 L Anion Gap 28 H BUN 73 H Creatinine 4.31 H* Estim Creat Clear Calc 14.9 Estimated GFR 13 Random Glucose 127 H Fasting Glucose Lactic Acid Lactic Acid F/U @ 2Hr 6.3 H* Lactic Acid F/U @ 4Hr 6.7 H* Uric Acid Calcium 8.5 D Phosphorus Magnesium Total Bilirubin 0.7 AST 75 H ALT 19 Alkaline Phosphatase 54 Total Protein 6.2 L Albumin 5.0 10/01/24 10/01/24 04:22 04:27 WBC 15.5 H RBC 2.46 L Hgb 7.3 L Hct 23.8 L MCV 96.7 MCH 29.7 MCHC 30.7 L RDW 19.9 H Plt Count 114 L MPV 9.2 L Immature Gran % (Auto) 1.2 H Neut % (Auto) 92.5 H Lymph % (Auto) 2.1 L [place] % (Auto) 4.1 Eos % (Auto) 0.0 Baso % (Auto) 0.1 Lymph # (Auto) 0.3 L [place] # (Auto) 0.6 Eos # (Auto) 0.0 Baso # (Auto) 0.0 Abs Immat Gran (auto) 0.18 H Absolute Neuts (auto) 14.4 H Absolute Nucleated RBC 0.070 H Nucleated RBC % (auto) 0.5 H Smear Tech's Comments Hold Purple Top VBG pH 7.32 VBG pCO2 25 VBG pO2 46 VBG HCO3 13 L VBG O2 Saturation 61.0 VBG Base Excess -11.2 Sodium 138 Potassium 5.1 Chloride 99 Carbon Dioxide 12 L Anion Gap 32 H BUN 75 H Creatinine 4.41 H* Estim Creat Clear Calc 14.6 Estimated GFR 13 Random Glucose Fasting Glucose 119 H Lactic Acid Lactic Acid F/U @ 2Hr Lactic Acid F/U @ 4Hr Uric Acid 4.6 Calcium 8.3 L Phosphorus 4.6 H Magnesium 2.5 Total Bilirubin 0.8 AST 94 H ALT 23 Alkaline Phosphatase 44 Total Protein 6.0 L Albumin 4.9 Microbiology Microbiology Results: Microbiology 09/16/24 11:52 Blood - Venous Blood Culture - Final No growth after 5 days. 09/16/24 11:35 Blood - Venous Blood Culture - Final No growth after 5 days. 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 Started on HD 09/23/2024. Overnight patient became significantly dyspneic not tolerate BiPAP needing intubation and ventilator support. We did a CT chest abdomen and pelvis which showed diffuse metastatic disease in lung, pleura, and significant increase in the tumor size when compared to 10 days ago with tumors extending from liver to right kidney to compressing left ureter, also a pelvic mass compressing IVCs. Talk to oncologist this morning, who stated the repeat biopsy also showed necrotic tumor mass, possibly this is a very aggressive renal cancer and patient can not get any chemotherapy given his critical illness needing dialysis, ventilator and multiple vasopressor support. Had a detailed discussion about patient's condition with the family who decided to switch him to comfort care possibly later today, for now we will change the code status to DNR. Neuro: Acute encephalopathy possibly due to metabolic encephalopathy On propofol for sedation and fentanyl for analgesia Close neurological status monitoring in the ICU every hour Cardiac: Distributive shock : Possibly secondary to significant metastatic disease with severe IVC compressions On 3 different vasopressor drips including Levophed, phenylephrine and vasopressin all turned into max concentration Respiratory: Acute hypoxemic respiratory failure due to increase in the pulmonary metastatic disease burden including the pleural metastasis Intubated overnight due to worsening respiratory distress Currently on PRVC mode 30%. PEEP 5, TV 360, RR 20 can not wean from ventilator due to refractory shock worsening metastatic disease into lung and pleura leading to severe dyspnea. ventilator management bundle. GI: We will start on tube feeds Renal: Acute kidney injury possibly secondary to tumor obstructing ureter and kidneys along with tumor lysis syndrome and urate nephropathy. Close to anuric, currently on renal replacement therapy will plan for hemodialysis today We will closely monitor I's and O's Avoid nephrotoxic medications Heme: Chronic anemia, closely monitor H&H, transfuse for hemoglobin less than 7 grams/deciliter Significant increase in the tumor burden compressing left kidney, right kidney, left ureter, liver and a pelvic mass compressing IVC is completely. His tumor burden in the lung so also increased with increase in the size of the pulmonary nodules and metastatic disease extending into the pleura. Repeat biopsy shows necrotic malignant tissue. He is a poor candidate to receive any kind of chemotherapy given his significant metastatic burden and multiple organ failure. Endocrine: Blood sugars under control Sliding scale insulin as needed Infectious disease: no active infection noted on empiric antibiotics Musculoskeletal: Decubitus ulcer prevention protocol Lines: Right IJ hemodialysis catheter placed on 08/24/2024 left IJ TLC placed last night Hernandez catheter Prophylaxis: Lovenox, pantoprazole Quality Stroke Does the patient have a stroke diagnosis?: No VTE Prior VTE?: No VTE Risk Level:: Medical - moderate - high VTE Device Contraindication: N/A - Device Ordered VTE Drug Contraindication: N/A - Med Ordered
--- NOTE | 2024-10-01 09:23 | MHC.SLORD ---
Speech Language Pathology Order Status: Pt remains intubated. ORE CHARGER to re-evaluate 24+ hours s/p extubation.
[2024-10-01] MEDS: Phenylephrine HCL 100 MG in 0.9 % Sodium Chloride 250 ML 47.78 MG IVCONT (09:31)
[2024-10-01] MEDS: Heparin Sodium,Porcine 5,000 UNIT/ML VIAL 5000 UNIT SUBCUT (09:46)
[2024-10-01] MEDS: Norepinephrine Bitartrate/D5W 8 MG/250 ML PLAST..BAG 31.17 MG IVCONT (10:34)
[2024-10-01 11:40] LABS: Glucose, Whole Blood 115 mg/dL (60-115)
[2024-10-01] MEDS: propofoL 1,000 MG/100 ML VIAL 15.75 MG IVCONT (11:42)
--- NOTE | 2024-10-01 11:42 | MHC.CLN ---
PT IS NOW INTUBATED AND SEDATED DISCUSSED AT ROUNDS WITH MD; PROGNOSIS IS POOR FAMILY MEETING TO DISCUSS PLAN OF CARE CURRENTLY NPO IN ADDITION, PT WITH INCREASED NUTRITION NEEDS R/T NEW PRESSURE INJURY RECOMMEND TF NEPRO AT MAX GOAL RATE OF 40ML/HR TO PROVIDE 1728KCALS (2144KCALS WITH SEDATION; 29KCALS/KG), 78G PROTEIN (1.06G/KG), 698ML FREE WATER FROM FORMULA MONITOR TOLERANCE AND LYTES FOLLOWING WITH TEAM SEE FULL CLINICAL NUTRITION ASSESSMENT
--- NOTE | 2024-10-01 11:53 | MHC.CM.PN ---
Pt is intubated in ICU: Imaging + for extensive metastatic disease not amenable to treatment - MD to have conversation with family re: transition to BI SPECIALIST. CM to await MD directive on d/c planning needs
--- NOTE | 2024-10-01 11:58 | PC.NURSE ---
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 @ 1550. Fentanyl gtt and Versed IVP given per JUN.? Original Note: Assumed care @ 0700? Neuro/Resp: Sedated/intubated, on? propofol gtt, does not open eyes, does not follow commands,? flaccid extremities (passive ROM performed)? Resp: ?ACVC vent. support. Cardiac: ?Sinus tachy on tele, MAP goal >65, on Phenylephrine 5x gtt, Vasopresin gtt, and Levophed gtt - per JUN GI: LBM 10/01 , +bowel sounds, OGT in place/ connected to low intermittent suction, POC Q6hr : Anuric, Chronic Morales in place.? Skin: ?Impaired skin integrity - see skin assessment (repositioning maintained) (foam DGS applied) Temp:? Infectious: IV antibiotics? Lines: TLC L. IJ, R.? HD cath peripheral IV x2.
--- NOTE | 2024-10-01 15:13 | PC.RT ---
Rt bypass vent check per MD/ Nurse as pts family gathering. 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
[2024-10-01] MEDS: fentaNYL citrate/NS 1,000 MCG/100 ML PLAST..BAG 5 MCG IVCONT (15:25)
[2024-10-01] MEDS: Midazolam HCl 2 MG/2 ML VIAL IVPUSH (15:29)
--- NOTE | 2024-10-01 16:26 | PM.DDS ---
Discharge Sum: Prov Provider Primary care physician: Cade Enriquez MD Consults: 09/16/24 18:23 Consult to Gastroenterology Routine Consulting Provider: Sumeet Swift Reason for consultation: Dysphagia Consult to Hematology / Oncology Routine Consulting Provider: [facility] Oncology/Hematology Reason for consultation: known to you 09/16/24 18:47 Consult to Nephrology Routine Consulting Provider: [facility] Reason for consultation: maryse 09/17/24 17:25 Consult to Urology Routine Consulting Provider: [facility] Reason for consultation: right renal mass 09/30/24 20:28 Consult to Wound Care Routine Reason for consultation: redness, stage I and ? 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 Started on HD 09/23/2024. Overnight patient became significantly dyspneic not tolerate BiPAP needing intubation and ventilator support. We did a CT chest abdomen and pelvis which showed diffuse metastatic disease in lung, pleura, and significant increase in the tumor size when compared to 10 days ago with tumors extending from liver to right kidney to compressing left ureter, also a pelvic mass compressing IVCs. Talk to oncologist this morning, who stated the repeat biopsy also showed necrotic tumor mass, possibly this is a very aggressive renal cancer and patient can not get any chemotherapy given his critical illness needing dialysis, ventilator and multiple vasopressor support. Had a detailed discussion about patient's condition with the family who decided to switch him to comfort care and patient peacefully at 4:04PM Additional Data Confirmation of as documented by pronouncing clinician: no pulse Family: at bedside Attending physician: Talon Arias MD Was code activated?: No Autopsy requested?: No worker's compensation claims examiner notified?: No Organ bank notified?: No Advance directives: No Hospice patient?: Yes
[2024-10-02 01:29] LABS: Parathyroid Hormone Related Pr 10 pg/mL (11-20)
== END 2024-10-01 16:04 | disposition expired | DRG 871 ==
LOC: HO.ED 14:29 → HO.EDOVER 15:13 → HO.S3 16:01 → HO.IMC 09-23 10:52 → HO.ICU 09-30 09:46
PROVIDERS: Family Medicine; Hospitalist; Nurse Practitioner Family; Pathology Cytopathology; Physician Assistant; Physician Assistant Medical; Radiology Diagnostic Radiology; Student in an Organized Health Care Education/Training Program; Admitting Provider Nurse Practitioner Acute Care; Emergency Provider Emergency Medicine Emergency Medical Services; PCP Internal Medicine; Visit Provider Internal Medicine Critical Care Medicine
PROC: 06H033Z Insertion of Infusion Device into Inferior Vena Cava, Percutaneous Approach (ICD-10-PCS; principal; 2024-09-23 11:00)
PROC: 0BBF3ZX Excision of Right Lower Lung Lobe, Percutaneous Approach, Diagnostic (ICD-10-PCS; principal; 2024-09-24 13:30)
DX: A41.9 Sepsis, unspecified organism (principal); E88.3 Tumor lysis syndrome; G93.41 Metabolic encephalopathy; J96.01 Acute respiratory failure with hypoxia; N17.9 Acute kidney failure, unspecified; D68.4 Acquired coagulation factor deficiency; N39.0 Urinary tract infection, site not specified; E87.21 Acute metabolic acidosis; C78.2 Secondary malignant neoplasm of pleura; C78.7 Secondary malignant neoplasm of liver and intrahepatic bile duct; C64.1 Malignant neoplasm of right kidney, except renal pelvis; R13.10 Dysphagia, unspecified; N18.30 Chronic kidney disease, stage 3 unspecified; E83.52 Hypercalcemia; E86.0 Dehydration; K59.00 Constipation, unspecified; E87.5 Hyperkalemia; R65.20 Severe sepsis without septic shock; Z51.5 Encounter for palliative care; R31.0 Gross hematuria; D63.1 Anemia in chronic kidney disease; I95.3 Hypotension of hemodialysis; K74.60 Unspecified cirrhosis of liver; D69.59 Other secondary thrombocytopenia; R57.8 Other shock; D63.0 Anemia in neoplastic disease; E86.1 Hypovolemia; Z20.822 Contact with and (suspected) exposure to COVID-19; Z85.46 Personal history of malignant neoplasm of prostate; Z86.718 Personal history of other venous thrombosis and embolism; Z79.899 Other long term (current) drug therapy
CPT/HCPCS: 0241U; 32408; 36415; 36556; 70450; 71045; 71275; 74177; 74230; 76775; 80048; 80053; 80076; 81001; 82140; 82272; 82607; 82728; 82746; 82803; 82947; 83010; 83519; 83605; 83615; 83735; 83880; 84100; 84466; 84484; 84550; 85025; 85027; 85610; 85730; 86704; 86706; 86850; 86880; 86900; 86901; 86923; 87040; 87086; 87088; 87186; 87340; 88305; 88341; 88342; 90999; 92526; 92611; 93005; 93971; 94002; 94003; 94640; 94660; 94799; 97110; 97116; 97162; 97530; 99285; C1752; C1769; J0696; J1644; J1720; J1938; J1956; J2003; J2185; J2250; J2371; J2405; J2470; J2598; J2704; J2783; J3010; J7120; J8540; P9016; P9047; Q9967

== ENCOUNTER → 2024-09-16 10:11 | Outpatient (BNV) | payer MEDICARE, SELFPAY | PROVIDERS: Emergency Provider Emergency Medicine Emergency Medical Services; PCP Internal Medicine; Visit Provider Radiology Diagnostic Radiology | DX: G93.89 Other specified disorders of brain (principal); R22.41 Localized swelling, mass and lump, right lower limb; R91.1 Solitary pulmonary nodule | CPT/HCPCS: 70450; 71045; 93971 ==

== ENCOUNTER → 2024-09-16 10:25 | Outpatient (BNV) | payer MEDICARE, SELFPAY | PROVIDERS: Admitting Provider Nurse Practitioner Acute Care; Emergency Provider Emergency Medicine Emergency Medical Services; PCP Internal Medicine; Visit Provider Internal Medicine | DX: I44.4 Left anterior fascicular block (principal); I25.2 Old myocardial infarction; R00.0 Tachycardia, unspecified | CPT/HCPCS: 93010 ==

== ENCOUNTER 2024-09-16 14:33 | Outpatient (BNV) | payer MEDICARE, SELFPAY | END 2024-09-29 08:29 | PROVIDERS: Admitting Provider Nurse Practitioner Acute Care; Emergency Provider Emergency Medicine Emergency Medical Services; PCP Internal Medicine; Visit Provider Specialist | DX: J98.11 Atelectasis (principal) | CPT/HCPCS: 71045 ==

== ENCOUNTER 2024-09-16 14:33 | Outpatient (BNV) | payer MEDICARE, SELFPAY | END 2024-09-30 09:50 | PROVIDERS: Admitting Provider Nurse Practitioner Acute Care; Emergency Provider Emergency Medicine Emergency Medical Services; PCP Internal Medicine; Visit Provider Radiology Diagnostic Radiology | DX: Z95.2 Presence of prosthetic heart valve (principal) | CPT/HCPCS: 71045 ==

== ENCOUNTER 2024-09-16 14:33 | Outpatient (BNV) | payer MEDICARE, SELFPAY | END 2024-09-24 | PROVIDERS: Admitting Provider Nurse Practitioner Acute Care; Emergency Provider Emergency Medicine Emergency Medical Services; PCP Internal Medicine; Visit Provider Student in an Organized Health Care Education/Training Program | DX: C34.31 Malignant neoplasm of lower lobe, right bronchus or lung (principal); J93.9 Pneumothorax, unspecified | CPT/HCPCS: 32408; 71045 ==

== ENCOUNTER 2024-09-16 14:33 | Outpatient (BNV) | payer MEDICARE, SELFPAY | END 2024-09-17 11:15 | PROVIDERS: Admitting Provider Nurse Practitioner Acute Care; Emergency Provider Emergency Medicine Emergency Medical Services; PCP Internal Medicine; Visit Provider Radiology Diagnostic Radiology | DX: R13.10 Dysphagia, unspecified (principal) | CPT/HCPCS: 74230 ==

== ENCOUNTER 2024-09-16 14:33 | Outpatient (BNV) | payer MEDICARE, SELFPAY | END 2024-10-01 00:34 | PROVIDERS: Admitting Provider Nurse Practitioner Acute Care; Emergency Provider Emergency Medicine Emergency Medical Services; PCP Internal Medicine; Visit Provider Radiology Diagnostic Radiology | DX: N13.30 Unspecified hydronephrosis (principal); R18.8 Other ascites; J90 Pleural effusion, not elsewhere classified; R91.8 Other nonspecific abnormal finding of lung field; Z95.9 Presence of cardiac and vascular implant and graft, unspecified | CPT/HCPCS: 71045; 71275; 74177 ==

== ENCOUNTER 2024-09-16 14:33 | Outpatient (BNV) | payer MEDICARE, SELFPAY | END 2024-09-23 10:03 | PROVIDERS: Admitting Provider Nurse Practitioner Acute Care; Emergency Provider Emergency Medicine Emergency Medical Services; PCP Internal Medicine; Visit Provider Radiology Diagnostic Radiology | DX: N17.9 Acute kidney failure, unspecified (principal); N18.30 Chronic kidney disease, stage 3 unspecified; R79.89 Other specified abnormal findings of blood chemistry | CPT/HCPCS: 36556; 76937; 77001 ==

== ENCOUNTER 2024-09-16 14:33 | Outpatient (BNV) | payer MEDICARE, SELFPAY | END 2024-09-30 14:53 | PROVIDERS: Admitting Provider Nurse Practitioner Acute Care; Emergency Provider Emergency Medicine Emergency Medical Services; PCP Internal Medicine; Visit Provider Internal Medicine Cardiovascular Disease | DX: I49.1 Atrial premature depolarization (principal); R00.0 Tachycardia, unspecified | CPT/HCPCS: 93010 ==

== ENCOUNTER 2024-09-16 14:33 | Outpatient (BNV) | payer MEDICARE, SELFPAY | END 2024-09-23 07:43 | PROVIDERS: Admitting Provider Nurse Practitioner Acute Care; Emergency Provider Emergency Medicine Emergency Medical Services; PCP Internal Medicine; Visit Provider Internal Medicine Cardiovascular Disease | DX: R94.31 Abnormal electrocardiogram [ECG] [EKG] (principal); I10 Essential (primary) hypertension | CPT/HCPCS: 93010 ==

== ENCOUNTER → 2024-09-16 14:33 | Outpatient (BNV) | payer MEDICARE, SELFPAY | PROVIDERS: Admitting Provider Nurse Practitioner Acute Care; Emergency Provider Emergency Medicine Emergency Medical Services; PCP Internal Medicine; Visit Provider Nurse Practitioner Acute Care | DX: N17.9 Acute kidney failure, unspecified (principal); N18.9 Chronic kidney disease, unspecified | CPT/HCPCS: 99223; 99232; 99233 ==

== ENCOUNTER → 2024-09-16 14:33 | Outpatient (BNV) | payer MEDICARE, SELFPAY | PROVIDERS: Admitting Provider Nurse Practitioner Acute Care; Emergency Provider Emergency Medicine Emergency Medical Services; PCP Internal Medicine; Visit Provider Internal Medicine Nephrology | DX: N17.9 Acute kidney failure, unspecified (principal); N18.30 Chronic kidney disease, stage 3 unspecified | CPT/HCPCS: 99223; 99232 ==

== ENCOUNTER → 2024-09-16 14:33 | Outpatient (BNV) | payer MEDICARE, SELFPAY | PROVIDERS: Admitting Provider Nurse Practitioner Acute Care; Emergency Provider Emergency Medicine Emergency Medical Services; PCP Internal Medicine; Visit Provider Urology | DX: R39.15 Urgency of urination (principal); N30.40 Irradiation cystitis without hematuria; N39.0 Urinary tract infection, site not specified | CPT/HCPCS: 99222 ==

== ENCOUNTER → 2024-09-16 14:33 | Outpatient (BNV) | payer MEDICARE, SELFPAY | PROVIDERS: Admitting Provider Nurse Practitioner Acute Care; Emergency Provider Emergency Medicine Emergency Medical Services; PCP Internal Medicine; Visit Provider Internal Medicine Critical Care Medicine | DX: R57.9 Shock, unspecified (principal); J96.00 Acute respiratory failure, unspecified whether with hypoxia or hypercapnia; N17.9 Acute kidney failure, unspecified; N18.9 Chronic kidney disease, unspecified; R31.9 Hematuria, unspecified; I12.9 Hypertensive chronic kidney disease with stage 1 through stage 4 chronic kidney disease, or unspecified chronic kidney disease | CPT/HCPCS: 31500; 36556; 99239; 99291; 99292; 99499 ==

== ENCOUNTER → 2024-09-16 14:33 | Outpatient (BNV) | payer MEDICARE, SELFPAY | PROVIDERS: Admitting Provider Nurse Practitioner Acute Care; Emergency Provider Emergency Medicine Emergency Medical Services; PCP Internal Medicine; Visit Provider Internal Medicine | DX: R59.9 Enlarged lymph nodes, unspecified (principal) | CPT/HCPCS: 99221 ==